=== PATIENT | female | born 1935 | race Caucasian/White ===

== ENCOUNTER 2020-03-30 11:46 | Inpatient (IN) ==
--- OUTSIDE RECORDS SUMMARY | 2020-03-30 11:48 | External Medical Summary | Continuity of Care Document ---
:1935 Author Name Kayli Velazco Address Unavailable Unavailable , Care Team Providers Name Role Phone Unavailable Unavailable Unavailable Kalli Katz M.D. 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 , M .D. Refills: 0 LORazepam 1 MG Oral Tablet; TAKE 1 TABLET 3 TIMES DAILY N EEDED. , M.D. Refills: 0 Losartan Potassium 25 MG Oral Tablet; TAKE 1 TABLET DAILY. , M.D. Refills: 0 ProAir HFA 108 (90 Base) MCG/ACT Inhalat ion Aerosol Solution; INHALE 2 PUFFS Every 4 hours PRN , M.D. Refills: 0 Sinemet 25-100 MG Oral Tablet; TAKE 1 TABLET twice daily , M.D. Refills: 0 CeleXA 20 MG Oral Tablet; TAKE 1 TABLET DAILY. , M.D. Refills: 0 Warfarin Sodium TABS; TAKE TABLET as directed , M.D. Refills: 0 Furosemide 20 MG Oral Tablet; TAKE 2 TABLETS DAILY. , M.D. Refills: 0 Gabapentin 300 MG TABS; TAKE 1 TABLET 3 TIMES DAILY. , M.D. Refills: 0 Oxybutynin Chloride 5 MG Oral Tablet; TAKE 1 TABLET twice d Mora farley Refills: 0 Aspirin 81 MG TABS; TAKE 1 TABLET DAILY. , M.D. Refills: 0 Combivent Respimat 20-100 MCG/ACT Inhala tion Aerosol Solution; INHALE 1 PUFFS 4 times daily Mora Katz Start: 05-Aug-2015 Quantity: 1 4 GM Inhaler Refills: 11 Procedures History of Cholecystectomy Status: Compl eted History of Total Knee Arthroplasty Statu s: Completed History of Laminectomy Decompressive Up To Two Lumbar Segmen ts Status: Completed Immunizations Immunizations not documented Family History Mother Family history of cardiovascular disease (V17.49) (Z82.49) S tatus: Active Father Family history of cardiovascular disease (V17.49) (Z82.49) S tatus: Active Social History - Smoking Status Ex-smoker Plan of Treatment Planned Observations Planned Goals not documented Results No Known Results Results not documented
--- OUTSIDE RECORDS SUMMARY | 2020-03-30 11:48 | External Medical Summary | Continuity of Care Document ---
:1935 Author Name Kayli Velazco Address Unavailable Unavailable , Care Team Providers Name Role Phone Unavailable Unavailable Unavailable Kalli Katz M.D. 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
--- NOTE | 2020-03-30 12:37 | Emergency Department Note ---
Impression & Plan Acute GI bleeding, Supratherapeutic INR, Abscess of breast, right ED Provider Note NAME: VIV FOLEY AGE: 84 SEX: F : 1935 ARRIVES VIA: Walk-In INFORMANT: Patient, ED PROVIDER(S): Juan Simpson MD Chief Complaint: Dark stools HPI: Patient states that she noticed dark stools yesterday. The patient states that she has had 5 dark tarry stools. Patient is complaining some mild discomfort but does not describe it is any pain within the abdomen. It is not localized. Patient denies any recent trauma. Patient states the dark stools have been constant. Nothing is made it better or worse. Patient denies any recent change in diet, stream or well water, nausea, vomiting, chest pain, shortness of breath. Patient does admit to may be slight change in taste or smell but this is been an ongoing chronic issue over many many months and not a recent issue. Patient does take Coumadin. Patient does have a prior history of a diverticular bleed back in the 70s. ROS: See HPI for pertinent positives and negatives. A total of 10 systems were reviewed and otherwise negative. Past medical history: See below Surgical history: See below Social history: See below Physical Exam: GENERAL: Well appearing, well nourished, NAD, non-toxic. Wearing glasses and mask EYE EXAM: Normal conjunctiva. PERRL, no anisocoria and EOM's grossly intact w/o pain. NECK: Supple, no nuchal rigidity, no adenopathy, non-tender. No signs of meningismus. LUNGS: Clear to auscultation. Normal chest wall mechanics. HEART: NSR, no MRG. ABDOMEN: Abdomen soft, non-tender, normo-active bowel sounds, no masses, no rebound or guarding. BACK: No CVA TTP. SKIN: No rashes and no bruising. Rectal: 1 nonthrombosed nonbleeding hemorrhoid, no masses noted, melenic appearing stool, heme positive. UPPER EXTREMITIES: Upper extremities are grossly normal. LOWER EXTREMITIES: Grossly normal, 1+ symmetric bilateral lower extremity edema without erythema. Negative Homans sign bilaterally. NEURO EXAM: A&O x3, cranial nerves II-XII grossly intact, normal speech, moves all 4 extremities on command w/o issue. Differential diagnoses: Diverticulosis, AVM, coagulopathy, colitis, inflammatory bowel disease, malignancy, Mervat-Kent tear, esophagitis, peptic ulcer disease, variceal bleed, gastritis, epistaxis, fissure, hemorrhoids, as well as other pathologies. Course: Patient was seen and evaluated the bedside. Full history physical exam was performed. EKG: None Imaging Studies: None Cardiac monitoring: An order was placed for continuous cardiac monitoring. The monitor shows a rate of 70 with sinus rhythm. Procedures: Incision & Drainage performed by Dr. Simpson Indication: Abscess Location: R inframammary fold Verbal consent was obtained after the risks and benefits were explained, including but not limited to bleeding, scarring, infection, pain, and bone/joint/nerve damage. At this time, the risks of the procedure are less than the risks of NOT performing the procedure. A time out was taken and the correct patient and site identified. The skin was prepped with betadine and a sterile field set. The wound was anesthetized with 3 ml of 1% lidocaine without epinephrine. The abscess cavity was entered with an 18G needle and 1 cc of purulent material expressed. Debridement was not performed. Detailed wound care instructions and signs and symptoms of worsening infection reviewed with the patient. No complications and the patient tolerated the procedure well. Wound culture was sent. MDM: Patient does present concern for possible GI bleed. Heme positive stool on exam. Blood work was obtained along with a type and screen. Patient's blood counts show normal white count H&H and platelet count. The patient's Coumadin level is elevated at 3.3. Patient does have an elevated BUN to creatinine ratio which may be consistent with an upper GI bleed. Occult stool was positive. I did speak with the on-call hospitalist. CELINA Berrios to be admitted under the supervision of Mulu Bhatti hospitalist. Past Med/Surg History Medical History COPD with asthma Diabetic neuropathy DM type 2 (diabetes mellitus, type 2) History of DVT (deep vein thrombosis) History of TIA (transient ischemic attack) History of uterine cancer Hyperlipidemia Hypertension half-way current use of anticoagulant Surgical History History of back surgery History of cataract surgery History of cholecystectomy History of hysterectomy History of total left knee replacement History of total right knee replacement History of tubal ligation Family History Mother Heart disease Social History Preferred Language: Hungarian Communication Ability: Effective 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 Beliefs That Will Affect Care: None Current Living Situation: Family current occupational status: retired Other Information That Helps Us Care for You: No Feels Safe at Home: Yes Safety Concerns: Feels Safe At This Time Smoking Status: Former smoker Smoking End Date: 1981 ; Hx Alcohol Use: No Hx Substance Use: No Allergies Allergies Allergy/AdvReac Type Severity Reaction Status Date / Time vancomycin Allergy Severe ANAPHYLAXIS Verified 03/30/20 13:04 adhesive Allergy Unknown RED AND Verified 03/30/20 13:04 ITCHY SKIN Penicillins AdvReac Unknown Verified 03/30/20 13:04 prednisone AdvReac Unknown INCREASED Verified 03/30/20 13:04 HER RECTAL BLEEDING Home Meds Home Medications Medication Instructions Recorded Confirmed aspirin 81 mg PO DAILY 03/30/20 03/30/20 atorvastatin 10 mg PO DAILY 03/30/20 03/30/20 furosemide See Rx Instructions .ROUTE .COMPLEX 03/30/20 03/30/20 gabapentin 300 mg PO TID 03/30/20 03/30/20 losartan 25 mg PO DAILY 03/30/20 03/30/20 metformin 500 mg PO BID 03/30/20 03/30/20 warfarin 5 mg PO MOTUWEFRSA 03/30/20 03/30/20 warfarin 7.5 mg PO SUTH 03/30/20 03/30/20 Results & Data (ED) Vital Signs Vital Signs - 24 hr 03/30/20 11:55 03/30/20 12:58 03/30/20 13:00 Temperature 36.6 C Temperature Source Oral Pulse Rate 70 60 62 Pulse Rate from SpO2 Sensor Respiratory Rate 20 21 17 Blood Pressure 177/72 H Blood Pressure Mean 107 Pulse Oximetry 98 Oxygen Delivery Method Room Air Sepsis Recent Fever Within 48 Hours No Sepsis Action Taken by Nursing No Action Required 03/30/20 13:10 03/30/20 13:13 03/30/20 13:14 Temperature Temperature Source Pulse Rate 58 L 57 L 57 L Pulse Rate from SpO2 Sensor 57 L Respiratory Rate 14 17 Blood Pressure 157/98 H Blood Pressure Mean 117 Pulse Oximetry 96 95 Oxygen Delivery Method Room Air Sepsis Recent Fever Within 48 Hours Sepsis Action Taken by Nursing 03/30/20 13:15 03/30/20 13:20 03/30/20 13:30 Temperature Temperature Source Pulse Rate 56 L 56 L Pulse Rate from SpO2 Sensor 56 L 54 L Respiratory Rate 15 15 Blood Pressure 159/68 H Blood Pressure Mean 102 Pulse Oximetry 95 98 96 Oxygen Delivery Method Room Air Sepsis Recent Fever Within 48 Hours Sepsis Action Taken by Nursing 03/30/20 13:44 Temperature Temperature Source Pulse Rate 80 Pulse Rate from SpO2 Sensor 79 Respiratory Rate 11 L Blood Pressure Blood Pressure Mean Pulse Oximetry 93 Oxygen Delivery Method Sepsis Recent Fever Within 48 Hours Sepsis Action Taken by Half-Way Medications Current Medication List: was personally reviewed by me Laboratory Data Attestation: I reviewed the patient's lab results. Result diagrams: 03/30/20 13:14 03/30/20 13:14 Lab Results 03/30/20 03/30/20 03/30/20 Range/Units 13:14 13:14 13:14 WBC 5.25 (4.8-10.8) K/uL RBC 4.15 L (4.2-5.4) M/uL Hgb 12.6 (12.0-16.0) g/dL Hct 38.2 (37-47) % MCV 92.0 (80-100) fL MCH 30.4 (25-34) pg MCHC 33.0 (32-36) g/dL RDW Std Deviation 48.8 H (36.4-46.3) fL RDW Coeff of Ata 14.5 (11.5-14.5) % Plt Count 163 (130-400) K/uL MPV 10.2 (7.4-10.4) fL Immature Gran % (Auto) 0.2 % Neut % (Auto) 68.7 % Lymph % (Auto) 18.3 % [place] % (Auto) 9.7 % Eos % (Auto) 2.5 % Baso % (Auto) 0.6 % Immature Gran # (Auto) 0.01 (0.00-0.02) K/uL Neut # (Auto) 3.61 (1.4-6.5) K/uL Lymph # (Auto) 0.96 L (1.2-3.4) K/uL [place] # (Auto) 0.51 (0.11-0.59) K/uL Eos # (Auto) 0.13 (0-0.5) K/uL Baso # (Auto) 0.03 (0-0.2) K/uL PT 32.4 H (9.0-12.0) Seconds INR 3.3 H (0.9-1.1) APTT 39.7 H (21.0-31.0) Seconds PTT Ratio 1.4 Sodium (136-145) mmol/L Potassium (3.5-5.1) mmol/L Chloride (98-107) mmol/L Carbon Dioxide (21-32) mmol/L Anion Gap (3-11) BUN (7-18) mg/dl Creatinine (0.6-1.2) mg/dl Est Cr Clr Drug Dosing Est GFR ( Amer) Est GFR (Non-Af Amer) BUN/Creatinine Ratio (10-20) Glucose (70-99) mg/dl Calcium (8.5-10.1) mg/dl Total Bilirubin (0.2-1) mg/dl AST (15-37) U/L ALT (12-78) U/L Alkaline Phosphatase (45-117) U/L Total Protein (6.4-8.2) gm/dl Albumin (3.4-5.0) gm/dl Globulin (2.5-4.0) gm/dl Albumin/Globulin Ratio (0.9-2) Blood Type A Positive Antibody Screen NEGATIVE 03/30/20 Range/Units 13:14 WBC (4.8-10.8) K/uL RBC (4.2-5.4) M/uL Hgb (12.0-16.0) g/dL Hct (37-47) % MCV (80-100) fL MCH (25-34) pg MCHC (32-36) g/dL RDW Std Deviation (36.4-46.3) fL RDW Coeff of Ata (11.5-14.5) % Plt Count (130-400) K/uL MPV (7.4-10.4) fL Immature Gran % (Auto) % Neut % (Auto) % Lymph % (Auto) % [place] % (Auto) % Eos % (Auto) % Baso % (Auto) % Immature Gran # (Auto) (0.00-0.02) K/uL Neut # (Auto) (1.4-6.5) K/uL Lymph # (Auto) (1.2-3.4) K/uL [place] # (Auto) (0.11-0.59) K/uL Eos # (Auto) (0-0.5) K/uL Baso # (Auto) (0-0.2) K/uL PT (9.0-12.0) Seconds INR (0.9-1.1) APTT (21.0-31.0) Seconds PTT Ratio Sodium 141 (136-145) mmol/L Potassium 3.9 (3.5-5.1) mmol/L Chloride 105 (98-107) mmol/L Carbon Dioxide 29 (21-32) mmol/L Anion Gap 7.0 (3-11) BUN 31 H (7-18) mg/dl Creatinine 0.91 (0.6-1.2) mg/dl Est Cr Clr Drug Dosing Not Reportable Est GFR ( Amer) 66.7 Est GFR (Non-Af Amer) 57.5 BUN/Creatinine Ratio 33.9 H (10-20) Glucose 112 H (70-99) mg/dl Calcium 9.1 (8.5-10.1) mg/dl Total Bilirubin 0.3 (0.2-1) mg/dl AST 19 (15-37) U/L ALT 26 (12-78) U/L Alkaline Phosphatase 63 (45-117) U/L Total Protein 7.2 (6.4-8.2) gm/dl Albumin 3.5 (3.4-5.0) gm/dl Globulin 3.7 (2.5-4.0) gm/dl Albumin/Globulin Ratio 0.9 (0.9-2) Blood Type Antibody Screen Administered Medications Discontinued Medications Pantoprazole Sodium 40 mg/ (Dextrose) 100 mls @ 20 mls/hr IV Q5H [facility] Stop: 03/30/20 17:44 Last Admin: 03/30/20 13:11 Dose: 8 mg/hr, 20 mls/hr Documented by: [id number] Lidocaine/Epinephrine (Xylocaine/Epinephrine 1%) 20 ml INFIL NOW ONE Stop: 03/30/20 14:48 Last Admin: 05/20/20 15:39 Dose: 20 ml Documented by: [id number] Discharge Plan Visit Data *Final* Discharge Date/Time: 03/30/20 15:36 Chief Complaint: Shortness of Breath/Dyspnea Stated Complaint: BLACK BOWEL MOVEMENT, COUGH, SOB, CHANGE IN TASTE ED Provider: Juan Simpson Discharge Problem: Acute GI bleeding, Supratherapeutic INR, Abscess of breast, right Patient Disposition: Admitted As Inpatient Discharge Instructions Interventions: ED Discharge Assessment Last Done: 03/30/20 15:36
[2020-03-30] MEDS ORDERED: PANTOprazole 40 MG in DEXTROSE 5% 100 ML IV SCH (12:45)
[2020-03-30 13:37] LABS: Basophils # (auto) 0.03 K/uL (0-0.2); Basophils % (auto) 0.6 %; Eosinophils # (auto) 0.13 K/uL (0-0.5); Eosinophils % (auto) 2.5 %; Hematocrit (blood only) 38.2 % (37-47); Hemoglobin 12.6 g/dL (12.0-16.0); Immature Granulocytes # (auto) 0.01 K/uL (0.00-0.02); Immature Granulocytes % (auto) 0.2 %; Lymphocytes # (auto) 0.96 K/uL (1.2-3.4); Lymphocytes % (auto) 18.3 %; Mean Corpuscular Hemoglobin 30.4 pg (25-34); Mean Platelet Volume 10.2 fL (7.4-10.4); Monocytes # (auto) 0.51 K/uL (0.11-0.59); Monocytes % (auto) 9.7 %; Neutrophils # (auto) 3.61 K/uL (1.4-6.5); Neutrophils % (auto) 68.7 %; Platelet Count 163 K/uL (130-400); RDW Coefficient of Variation 14.5 % (11.5-14.5); RDW Standard Deviation 48.8 fL (36.4-46.3); Red Blood Count 4.15 M/uL (4.2-5.4); White Blood Count 5.25 K/uL (4.8-10.8)
[2020-03-30 13:49] LABS: Alanine Aminotransferase 26 U/L (12-78); Albumin Level 3.5 gm/dl (3.4-5.0); Aspartate Aminotransferase 19 U/L (15-37); BUN Creatinine Ratio 33.9 (10-20); Blood Urea Nitrogen 31 mg/dl (7-18); Calcium 9.1 mg/dl (8.5-10.1); Carbon Dioxide 29 mmol/L (21-32); Chloride 105 mmol/L (98-107); Est GFR (African American) 66.7; Est GFR (Non-African American) 57.5; Glucose 112 mg/dl (70-99); Potassium 3.9 mmol/L (3.5-5.1); Sodium 141 mmol/L (136-145)
[2020-03-30 13:51] LABS: INR 3.3 (0.9-1.1); Partial Thromboplastin Ratio 1.4; Partial Thromboplastin Time 39.7 Seconds (21.0-31.0); Prothrombin Time 32.4 Seconds (9.0-12.0)
[2020-03-30 13:52] LABS: Albumin Globulin Ratio 0.9 (0.9-2); Alkaline Phosphatase 63 U/L (45-117); Bilirubin,Total 0.3 mg/dl (0.2-1); Globulin 3.7 gm/dl (2.5-4.0); Total Protein 7.2 gm/dl (6.4-8.2)
[2020-03-30] MEDS ORDERED: LIDOCAINE/EPINEPHRINE 1% 20 ML VIAL INFIL ONE (14:47)
--- NOTE | 2020-03-30 16:00 | History & Physical Report ---
Date of Service March 30, 2020 Assessment & Plan (1) Upper GI bleed: (2) Coagulopathy: -admit to med/surg with tele -patient presenting from home with reports of black stools for 2 days -on Coumadin for remote history of DVT, INR 3.3 -vitals stable, hgb 12.6 -started on Protonix drip in ED, will continue -Vitamin K 5mg x 1 -serial H&H, INR -clear liquids, NPO after midnight -CT abd/pelvis 2015 -sigmoid and descending colon diverticulosis; no prior colonoscopy or EGD reports on file -GI consult, case discussed with CELINA Bah (3) Abscess: -small superficial abscess noted under right breast -s/p I&D in ED, no packing needed -culture sent -no need for antibiotics at this time -Nystatin powder for breast folds (4) History of DVT (deep vein thrombosis): -holding Coumadin as above -also hx of IVC filter (5) History of TIA (transient ischemic attack): -hold ASA and statin for now (6) DM type 2 (diabetes mellitus, type 2): -hgb a1c 6.8 12/2019 -hold oral agents and utilize SSI while hospitalized (7) Hypertension: -BP a little elevated, likely situational -continue Losartan (8) DVT prophylaxis: -SCDs due to GI bleeding History of Present Illness Chief Complaint: Black Stools Primary Care Provider: Duong Looney MD 84-year-old female with PMH DM type II, DVT on Coumadin, HTN, and other problems listed below who presents the ED for evaluation of black stools. Patient reports her symptoms began 2 days ago. She reports she had a formed b owel movement yesterday however her stools were loose today. Describes stools as black in color. Denies any bright red bleeding. She has had some abdominal cramping but denies any other abdominal pain, nausea, vomiting. No chest pain or shortness of breath. Chronic lower extremity edema is at baseline. Denies lightheadedness, dizziness, diaphoresis, syncopal event. No other recent illnesses, fevers, chills. She denies any urinary symptoms. She reports a small abscess starting under her right breast that has been draining a small amount. Patient denies any heavy NSAID use. In the ED, rectal exam reveals heme positive stools. Patient is hemodynamically stable. Hgb 12.6, INR 3.3. Patient was started on a Protonix drip. Allergies Allergy/AdvReac Type Severity Reaction Status Date / Time vancomycin Allergy Severe ANAPHYLAXIS Verified 03/30/20 13:04 adhesive Allergy Unknown RED AND Verified 03/30/20 13:04 ITCHY SKIN Penicillins AdvReac Unknown Verified 03/30/20 13:04 prednisone AdvReac Unknown INCREASED Verified 03/30/20 13:04 HER RECTAL BLEEDING Home Medications Home Medications Medication Instructions Recorded Confirmed Type aspirin 81 mg PO DAILY 03/30/20 03/30/20 History atorvastatin 10 mg PO DAILY 03/30/20 03/30/20 History furosemide See Rx Instructions .ROUTE .COMPLEX 03/30/20 03/30/20 History gabapentin 300 mg PO TID 03/30/20 03/30/20 History losartan 25 mg PO DAILY 03/30/20 03/30/20 History metformin 500 mg PO BID 03/30/20 03/30/20 History warfarin 5 mg PO MOTUWEFRSA 03/30/20 03/30/20 History warfarin 7.5 mg PO SUTH 03/30/20 03/30/20 History Past Med/Surg History Medical History COPD with asthma Diabetic neuropathy DM type 2 (diabetes mellitus, type 2) History of DVT (deep vein thrombosis) History of TIA (transient ischemic attack) History of uterine cancer Hyperlipidemia Hypertension nursing home current use of anticoagulant Surgical History History of back surgery History of cataract surgery History of cholecystectomy History of hysterectomy History of total left knee replacement History of total right knee replacement History of tubal ligation Family History Mother Heart disease Social History Preferred Language: Czech Communication Ability: Effective 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 Beliefs That Will Affect Care: None Current Living Situation: Family current occupational status: retired Other Information That Helps Us Care for You: No Feels Safe at Home: Yes Safety Concerns: Feels Safe At This Time Smoking Status: Former smoker Smoking End Date: 1981 ; Hx Alcohol Use: No Hx Substance Use: No Review of Systems Review of Systems: ROS per HPI, all other systems reviewed and negative Physical Exam Constitutional: WD/WN, vitals as above Eyes: PERRL, conjunctivae normal, anicteric sclerae ENMT: external ear and nose normal, oropharynx normal Respiratory: normal respiratory effort, lungs clear to auscultation Cardiovascular: Rate/Rhythm: regular rate and regular rhythm Vessels: normal peripheral pulses Extremities: + edema (+1-2 pitting edema BLE) Gastrointestinal (Abdomen): normal bowel sounds, soft, nontender, no hepatosplenomegaly Musculoskeletal: no cyanosis or clubbing, extremities motor strength 5/5 Skin: no rashes, warm and dry Chronic venous changes BLE; small wound noted under patient's right breast with surrounding induration and erythema, no active drainage at this time Neurologic: PERRL, EOMI, accommodation nl, no face palsy, no dysarthria Psychiatric: A+Ox3, euthymic affect Results & Data Results & Data ([facility]) Vital Signs (Past 12 Hours) Vital Signs Temp Pulse Pulse Resp BP BP Pulse Ox 03/30/20 15:30 70 20 168/72 H 98 03/30/20 13:44 80 11 L 93 03/30/20 13:30 56 L 15 159/68 H 96 03/30/20 13:20 56 L 15 98 03/30/20 13:15 95 03/30/20 13:14 57 L 17 157/98 H 95 03/30/20 13:13 57 L 96 03/30/20 13:10 58 L 14 03/30/20 13:00 62 17 03/30/20 12:58 60 21 03/30/20 11:55 36.6 C 70 20 177/72 H 98 Laboratory Results Short CBC 03/30/20 Range/Units 13:14 WBC 5.25 (4.8-10.8) K/uL Hgb 12.6 (12.0-16.0) g/dL Hct 38.2 (37-47) % Plt Count 163 (130-400) K/uL BMP 03/30/20 13:14 Sodium 141 Potassium 3.9 Chloride 105 Carbon Dioxide 29 BUN 31 H Creatinine 0.91 Glucose 112 H Calcium 9.1 Liver Function 03/30/20 Range/Units 13:14 Total Bilirubin 0.3 (0.2-1) mg/dl AST 19 (15-37) U/L ALT 26 (12-78) U/L Alkaline Phosphatase 63 (45-117) U/L Albumin 3.5 (3.4-5.0) gm/dl Code Status & VTE Plan Code Status Patient is a full code as per my discussion with her. VTE Prophylaxis Plan VTE Prophylaxis will be ordered: Yes Supervising Physician Co-Signing Physician Notes Pt was seen and examined. Agreed with Roselyn PATRICK exam, assessment and plan. 84-year-old female with PMH DM type II, DVT on Coumadin, HTN, and other problems listed below who presents the ED for dark stools. Pt said that about 2 days she has been having dark stools. She said that last episodes of dark stools was this morning. She is on coumadin and aspirin with INR 3.3 today. She said that she laready took her coumadin today. Denies any nausea, vomiting and abdominal pain. Protonix drip starting in the ER, will continue. Vitamin K 5 mg givenx1. GI consult. Will start on clear liquid and NPO after midnight. Will monitor H&H and INR. Continue monitor closely. MD Charly
[2020-03-30] MEDS ORDERED: ACETAMINOPHEN 325 MG TAB PO PRN (16:46)
[2020-03-30] MEDS ORDERED: PHYTONADIONE 5 MG in SODIUM CHLORIDE 0.9% 50 ML IV ONE (17:00)
[2020-03-30] MEDS ORDERED: GLUCOSE 10 TABS/TUBE PO PRN (17:43)
[2020-03-30] MEDS ORDERED: CARBOHYDRATES FOR HYPOGLYCEMIA PO PRN (17:43)
[2020-03-30] MEDS ORDERED: GLUCAGON FOR INJ 1 MG VIAL SQ PRN (17:43)
[2020-03-30] MEDS ORDERED: DEXTROSE 50% 50 ML SYRINGE IV PRN (17:43)
[2020-03-30] MEDS ORDERED: GLUCOSE 40% GEL 15 GM TUBE PO PRN (17:43)
[2020-03-30] MEDS ORDERED: INSULIN ASPART 100 UNITS/ML 3 ML PEN SC SCH (21:00)
[2020-03-30 21:06] LABS: Hematocrit (blood only) 37.2 % (37-47); Hemoglobin 12.1 g/dL (12.0-16.0)
[2020-03-30] MEDS: GABAPENTIN 300 MG CAP PO SCH (21:20)
[2020-03-30] MEDS: NYSTATIN POWDER 15GM BTL EXT SCH (21:20)
[2020-03-30] MEDS ORDERED: LORazepam 0.5 MG TAB PO PRN (21:48)
[2020-03-31] MEDS ORDERED: Nursing to Pharmacy Communication ONE ×2 (03:21→15:13)
[2020-03-31] MEDS: INSULIN ASPART 100 UNITS/ML 3 ML PEN SC SCH ×4 (06:02→20:45)
[2020-03-31] MEDS: LOSARTAN POTASSIUM 25 MG TAB PO SCH (08:05)
[2020-03-31] MEDS: GABAPENTIN 300 MG CAP PO SCH ×3 (08:05→20:38)
[2020-03-31] MEDS: NYSTATIN POWDER 15GM BTL EXT SCH ×2 (08:05→20:38)
[2020-03-31 08:16] LABS: Hematocrit (blood only) 34.6 % (37-47); Hemoglobin 11.2 g/dL (12.0-16.0); Mean Corpuscular Hemoglobin 29.8 pg (25-34); Mean Corpuscular Hgb Conc 32.4 g/dL (32-36); Mean Platelet Volume 10.1 fL (7.4-10.4); Platelet Count 156 K/uL (130-400); RDW Coefficient of Variation 14.6 % (11.5-14.5); RDW Standard Deviation 49.2 fL (36.4-46.3); Red Blood Count 3.76 M/uL (4.2-5.4); White Blood Count 4.92 K/uL (4.8-10.8)
[2020-03-31 08:28] LABS: INR 1.6 (0.9-1.1); Prothrombin Time 16.1 Seconds (9.0-12.0)
--- NOTE | 2020-03-31 08:34 | Gastrointestinal Consultation ---
Date of Consultation March 31, 2020 Assessment & Plan (1) Acute GI bleedin84 year old female anticoagulated on coumadin presenting with 2/3 days of dark stools, heme + in the ED. VSS, slight drop in HGB overnight with BUN elevated at 31 NPO Please restart IV PPI bolus and drip No NSAIDs Hold coumadin INR < 2 EGD this AM Thank you for allowing us to participate in the care of this patient. Please call with any acute changes, questions or concerns. Please see addendum below with additional recommendation from my supervising physician. Present on Admission?: Yes (2) Supratherapeutic INR: Present on Admission?: Yes Supervising Physician Co-Signing Physician Notes I have seen and examined the patient and discussed the management with CELINA Bah. Patient alert and oriented. Admitted thru the ER for melena. On coumadin for history of dvt, inr 3.3 on admission- reversed and now 1.6. Slight downtrend in hgb, very mild bun elevation. EGD for evaluation of melena today. Consent obtained. History of Present Illness Reason for Consultation: black stools Requesting Physician: Jose Attending Physician: Dennis Garcia MD History of Present Illness 84 year old female with T2DM, DVT on Coumadin, HTN, who presents the ED for evaluation of black stools - GI asked to evaluate for dark stools. She notes symptoms started about 72 hours ago. Suggests At that time notes a change in her stools, dark, tarry stools. About 2-3 episodes daily. Last episode was earlier this AM. No abd pain. No GERD. No nausea, vomiting. No dysphagia. Describes stools as black in color. Denies any bright red bleeding. No chest pain or shortness of breath. Denies lightheadedness, dizziness. No syncope. In the ED, rectal exam reveals heme positive stools. Patient is hemodynamically stable. Hgb 12.6, INR 3.3. Patient was started on a Protonix drip this was to continued however appears to have been discontinued. Unclear to me why. Allergies Allergy/AdvReac Type Severity Reaction Status Date / Time vancomycin Allergy Severe ANAPHYLAXIS Verified 03/30/20 13:04 adhesive Allergy Unknown RED AND Verified 03/30/20 13:04 ITCHY SKIN Penicillins AdvReac Unknown Verified 03/30/20 13:04 prednisone AdvReac Unknown INCREASED Verified 03/30/20 13:04 HER RECTAL BLEEDING Home Medications Home Medications Medication Instructions Recorded Confirmed Type aspirin 81 mg PO DAILY 03/30/20 03/30/20 History atorvastatin 10 mg PO DAILY 03/30/20 03/30/20 History furosemide See Rx Instructions .ROUTE .COMPLEX 03/30/20 03/30/20 History gabapentin 300 mg PO TID 03/30/20 03/30/20 History losartan 25 mg PO DAILY 03/30/20 03/30/20 History metformin 500 mg PO BID 03/30/20 03/30/20 History warfarin 5 mg PO MOTUWEFRSA 03/30/20 03/30/20 History warfarin 7.5 mg PO SUTH 03/30/20 03/30/20 History Patient History Medical History COPD with asthma Diabetic neuropathy DM type 2 (diabetes mellitus, type 2) History of DVT (deep vein thrombosis) History of TIA (transient ischemic attack) History of uterine cancer Hyperlipidemia Hypertension retirement current use of anticoagulant Surgical History History of back surgery History of cataract surgery History of cholecystectomy History of hysterectomy History of total left knee replacement History of total right knee replacement History of tubal ligation Family History Mother Heart disease Social History Preferred Language: Frisian Communication Ability: Effective 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 Beliefs That Will Affect Care: None Current Living Situation: Family current occupational status: retired Other Information That Helps Us Care for You: No Feels Safe at Home: Yes Safety Concerns: Feels Safe At This Time Smoking Status: Former smoker Smoking End Date: 1981 ; Hx Alcohol Use: No Hx Substance Use: No Review of Systems Constitutional: no fever, no chills and no fatigue Respiratory: no cough and no dyspnea Cardiovascular: no chest pain and no dyspnea Gastrointestinal: + melena; no abdominal pain, no nausea, no coffee ground emesis, no hematemesis and no blood in stools Physical Exam Constitutional: well developed and well nourished; no acute distress Neck: trachea midline Respiratory: normal respiratory effort Gastrointestinal (Abdomen): normal bowel sounds, soft, nontender, no hepatosplenomegaly Skin: no rashes, warm and dry Results & Data ([facility]) Vital Signs (Past 12 Hours) Vital Signs Temp Pulse Pulse Resp BP Pulse Ox 03/31/20 07:46 36.6 C 64 18 154/76 H 92 03/31/20 07:11 59 L 03/31/20 04:00 36.9 C 68 18 146/69 H 93 03/30/20 23:24 37.5 C 69 18 143/67 H 91 03/30/20 23:00 81 Laboratory Results 03/31/20 03/31/20 03/31/20 Range/Units 07:42 07:42 07:42 WBC 4.92 (4.8-10.8) K/uL RBC 3.76 L (4.2-5.4) M/uL Hgb 11.2 L (12.0-16.0) g/dL Hct 34.6 L (37-47) % MCV 92.0 (80-100) fL MCH 29.8 (25-34) pg MCHC 32.4 (32-36) g/dL RDW Std Deviation 49.2 H (36.4-46.3) fL RDW Coeff of Ata 14.6 H (11.5-14.5) % Plt Count 156 (130-400) K/uL MPV 10.1 (7.4-10.4) fL Immature Gran % (Auto) % Neut % (Auto) % Lymph % (Auto) % Bond % (Auto) % Eos % (Auto) % Baso % (Auto) % Immature Gran # (Auto) (0.00-0.02) K/uL Neut # (Auto) (1.4-6.5) K/uL Lymph # (Auto) (1.2-3.4) K/uL Bond # (Auto) (0.11-0.59) K/uL Eos # (Auto) (0-0.5) K/uL Baso # (Auto) (0-0.2) K/uL PT 16.1 H (9.0-12.0) Seconds INR 1.6 H (0.9-1.1) APTT (21.0-31.0) Seconds PTT Ratio Sodium Pending (136-145) mmol/L Potassium Pending (3.5-5.1) mmol/L Chloride Pending (98-107) mmol/L Carbon Dioxide Pending (21-32) mmol/L Anion Gap Pending (3-11) BUN Pending (7-18) mg/dl Creatinine Pending (0.6-1.2) mg/dl Est Cr Clr Drug Dosing Pending Est GFR ( Amer) Pending Est GFR (Non-Af Amer) Pending BUN/Creatinine Ratio Pending (10-20) Glucose Pending (70-99) mg/dl POC Glucose (70-99) mg/dl Calcium Pending (8.5-10.1) mg/dl Total Bilirubin (0.2-1) mg/dl AST (15-37) U/L ALT (12-78) U/L Alkaline Phosphatase (45-117) U/L Total Protein (6.4-8.2) gm/dl Albumin (3.4-5.0) gm/dl Globulin (2.5-4.0) gm/dl Albumin/Globulin Ratio (0.9-2) POC Stool Occult Blood (Negative) Blood Type Antibody Screen 03/31/20 03/30/20 03/30/20 Range/Units 05:43 Unknown 20:51 WBC (4.8-10.8) K/uL RBC (4.2-5.4) M/uL Hgb 12.1 (12.0-16.0) g/dL Hct 37.2 (37-47) % MCV (80-100) fL MCH (25-34) pg MCHC (32-36) g/dL RDW Std Deviation (36.4-46.3) fL RDW Coeff of Ata (11.5-14.5) % Plt Count (130-400) K/uL MPV (7.4-10.4) fL Immature Gran % (Auto) % Neut % (Auto) % Lymph % (Auto) % Bond % (Auto) % Eos % (Auto) % Baso % (Auto) % Immature Gran # (Auto) (0.00-0.02) K/uL Neut # (Auto) (1.4-6.5) K/uL Lymph # (Auto) (1.2-3.4) K/uL Bond # (Auto) (0.11-0.59) K/uL Eos # (Auto) (0-0.5) K/uL Baso # (Auto) (0-0.2) K/uL PT (9.0-12.0) Seconds INR (0.9-1.1) APTT (21.0-31.0) Seconds PTT Ratio Sodium (136-145) mmol/L Potassium (3.5-5.1) mmol/L Chloride (98-107) mmol/L Carbon Dioxide (21-32) mmol/L Anion Gap (3-11) BUN (7-18) mg/dl Creatinine (0.6-1.2) mg/dl Est Cr Clr Drug Dosing Est GFR ( Amer) Est GFR (Non-Af Amer) BUN/Creatinine Ratio (10-20) Glucose (70-99) mg/dl POC Glucose 119 H (70-99) mg/dl Calcium (8.5-10.1) mg/dl Total Bilirubin (0.2-1) mg/dl AST (15-37) U/L ALT (12-78) U/L Alkaline Phosphatase (45-117) U/L Total Protein (6.4-8.2) gm/dl Albumin (3.4-5.0) gm/dl Globulin (2.5-4.0) gm/dl Albumin/Globulin Ratio (0.9-2) POC Stool Occult Blood Positive A (Negative) Blood Type Antibody Screen 03/30/20 03/30/20 03/30/20 Range/Units 20:45 13:14 13:14 WBC (4.8-10.8) K/uL RBC (4.2-5.4) M/uL Hgb (12.0-16.0) g/dL Hct (37-47) % MCV (80-100) fL MCH (25-34) pg MCHC (32-36) g/dL RDW Std Deviation (36.4-46.3) fL RDW Coeff of Ata (11.5-14.5) % Plt Count (130-400) K/uL MPV (7.4-10.4) fL Immature Gran % (Auto) % Neut % (Auto) % Lymph % (Auto) % Bond % (Auto) % Eos % (Auto) % Baso % (Auto) % Immature Gran # (Auto) (0.00-0.02) K/uL Neut # (Auto) (1.4-6.5) K/uL Lymph # (Auto) (1.2-3.4) K/uL Bond # (Auto) (0.11-0.59) K/uL Eos # (Auto) (0-0.5) K/uL Baso # (Auto) (0-0.2) K/uL PT 32.4 H (9.0-12.0) Seconds INR 3.3 H (0.9-1.1) APTT 39.7 H (21.0-31.0) Seconds PTT Ratio 1.4 Sodium 141 (136-145) mmol/L Potassium 3.9 (3.5-5.1) mmol/L Chloride 105 (98-107) mmol/L Carbon Dioxide 29 (21-32) mmol/L Anion Gap 7.0 (3-11) BUN 31 H (7-18) mg/dl Creatinine 0.91 (0.6-1.2) mg/dl Est Cr Clr Drug Dosing Not Reportable Est GFR ( Amer) 66.7 Est GFR (Non-Af Amer) 57.5 BUN/Creatinine Ratio 33.9 H (10-20) Glucose 112 H (70-99) mg/dl POC Glucose 136 H (70-99) mg/dl Calcium 9.1 (8.5-10.1) mg/dl Total Bilirubin 0.3 (0.2-1) mg/dl AST 19 (15-37) U/L ALT 26 (12-78) U/L Alkaline Phosphatase 63 (45-117) U/L Total Protein 7.2 (6.4-8.2) gm/dl Albumin 3.5 (3.4-5.0) gm/dl Globulin 3.7 (2.5-4.0) gm/dl Albumin/Globulin Ratio 0.9 (0.9-2) POC Stool Occult Blood (Negative) Blood Type Antibody Screen 03/30/20 03/30/20 Range/Units 13:14 13:14 WBC 5.25 (4.8-10.8) K/uL RBC 4.15 L (4.2-5.4) M/uL Hgb 12.6 (12.0-16.0) g/dL Hct 38.2 (37-47) % MCV 92.0 (80-100) fL MCH 30.4 (25-34) pg MCHC 33.0 (32-36) g/dL RDW Std Deviation 48.8 H (36.4-46.3) fL RDW Coeff of Ata 14.5 (11.5-14.5) % Plt Count 163 (130-400) K/uL MPV 10.2 (7.4-10.4) fL Immature Gran % (Auto) 0.2 % Neut % (Auto) 68.7 % Lymph % (Auto) 18.3 % Bond % (Auto) 9.7 % Eos % (Auto) 2.5 % Baso % (Auto) 0.6 % Immature Gran # (Auto) 0.01 (0.00-0.02) K/uL Neut # (Auto) 3.61 (1.4-6.5) K/uL Lymph # (Auto) 0.96 L (1.2-3.4) K/uL Bond # (Auto) 0.51 (0.11-0.59) K/uL Eos # (Auto) 0.13 (0-0.5) K/uL Baso # (Auto) 0.03 (0-0.2) K/uL PT (9.0-12.0) Seconds INR (0.9-1.1) APTT (21.0-31.0) Seconds PTT Ratio Sodium (136-145) mmol/L Potassium (3.5-5.1) mmol/L Chloride (98-107) mmol/L Carbon Dioxide (21-32) mmol/L Anion Gap (3-11) BUN (7-18) mg/dl Creatinine (0.6-1.2) mg/dl Est Cr Clr Drug Dosing Est GFR ( Amer) Est GFR (Non-Af Amer) BUN/Creatinine Ratio (10-20) Glucose (70-99) mg/dl POC Glucose (70-99) mg/dl Calcium (8.5-10.1) mg/dl Total Bilirubin (0.2-1) mg/dl AST (15-37) U/L ALT (12-78) U/L Alkaline Phosphatase (45-117) U/L Total Protein (6.4-8.2) gm/dl Albumin (3.4-5.0) gm/dl Globulin (2.5-4.0) gm/dl Albumin/Globulin Ratio (0.9-2) POC Stool Occult Blood (Negative) Blood Type A Positive Antibody Screen NEGATIVE
[2020-03-31 08:41] LABS: BUN Creatinine Ratio 35.2 (10-20); Calcium 8.8 mg/dl (8.5-10.1); Creatinine Clr Calc Pharmacy 59.1 ml/min; Est GFR (African American) 72.4; Est GFR (Non-African American) 62.5; Potassium 3.8 mmol/L (3.5-5.1)
[2020-03-31] MEDS ORDERED: PROPOFOL IV EMULSION 10 MG/ML 20 ML VIAL IV ONE (08:49)
[2020-03-31] MEDS ORDERED: LIDOCAINE HCL 2% 2 ML VIAL/AMP(20MG/ML) INFIL ONE (08:49)
[2020-03-31] MEDS: PANTOprazole 40 MG in DEXTROSE 5% 100 ML IV SCH ×3 (08:52→18:57)
--- NOTE | 2020-03-31 09:38 | Anesthesiology Consultation ---
Date of Service March 31, 2020 [facility] Assessment & Plan (1) Encounter for pre-operative examination: Chart Review Chart Review: Acceptable Risk for Surgery and Patient NOT seen in Pre Admission Testing Consults Requested none History Surgery Operation Date: 03/31/20 08:30 Proposed Procedures p Esophagogastroduodenoscopy Dr. Jovon Sigala M.D. Height/Weight Height: 5 ft 6 in Weight: 104.6 kg Allergies Allergy/AdvReac Type Severity Reaction Status Date / Time vancomycin Allergy Severe ANAPHYLAXIS Verified 03/30/20 13:04 adhesive Allergy Unknown RED AND Verified 03/30/20 13:04 ITCHY SKIN Penicillins AdvReac Unknown Verified 03/30/20 13:04 prednisone AdvReac Unknown INCREASED Verified 03/30/20 13:04 HER RECTAL BLEEDING Medications Home Medications Medication Instructions Recorded Confirmed Last Taken aspirin 81 mg PO DAILY 03/30/20 03/30/20 Unknown atorvastatin 10 mg PO DAILY 03/30/20 03/30/20 Unknown furosemide See Rx Instructions .ROUTE .COMPLEX 03/30/20 03/30/20 Unknown gabapentin 300 mg PO TID 03/30/20 03/30/20 Unknown losartan 25 mg PO DAILY 03/30/20 03/30/20 Unknown metformin 500 mg PO BID 03/30/20 03/30/20 Unknown warfarin 5 mg PO MOTUWEFRSA 03/30/20 03/30/20 Unknown warfarin 7.5 mg PO SUTH 03/30/20 03/30/20 Unknown Active Medications Generic Name Dose Route Start Last Admin Trade Name Freq PRN Reason Stop Dose Admin Gabapentin 300 mg 03/30/20 21:00 03/31/20 08:05 Neurontin PO 04/29/20 20:59 300 mg TID MARIANELA Administration Pantoprazole Sodium 40 mg/ 100 mls @ 20 mls/hr 03/31/20 08:45 03/31/20 09:01 Dextrose IV 04/30/20 08:44 0 mg/hr Q5H MARIANELA 0 mls/hr Infusion 8 MG/HR Insulin Aspart 0 units 03/31/20 06:00 03/31/20 06:02 Novolog Flexpen SC 04/30/20 05:59 Not Given Q6 MARIANELA Lorazepam 0.5 mg 03/30/20 21:48 03/30/20 22:32 Ativan PO 04/29/20 21:47 0.5 mg DAILY PRN Administration Anxiety Losartan Potassium 25 mg 03/31/20 09:00 03/31/20 08:05 Cozaar PO 04/30/20 08:59 25 mg DAILY MARIANELA Administration Nystatin 1 appln 03/30/20 21:00 03/31/20 08:05 Mycostatin EXT 04/29/20 20:59 1 appln BID MARIANELA Administration NPO Date Last Intake of Fluids: 03/31/20 Time Last Intake of Fluids: 00:00 Date Last Intake of Solids: 03/31/20 Time Last Intake of Solids: 18:00 Past Medical History Medical History COPD with asthma Diabetic neuropathy DM type 2 (diabetes mellitus, type 2) History of DVT (deep vein thrombosis) History of TIA (transient ischemic attack) History of uterine cancer Hyperlipidemia 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 Past Family History Family History Mother Heart disease Past Surgical History Surgical History History of back surgery History of cataract surgery History of cholecystectomy History of hysterectomy History of total left knee replacement History of total right knee replacement History of tubal ligation Social History Smoking Status: Former smoker Smoking End Date: 1981 Hx Alcohol Use: No Hx Substance Use: No Physical Exam Vital Signs Last Vital Signs Temp 36.6 C 03/31/20 09:34 Pulse 65 03/31/20 09:34 Resp 18 03/31/20 09:34 BP 153/58 H 03/31/20 09:34 Pulse Ox 95 03/31/20 09:34 Testing Laboratory Results 03/31/20 07:42 03/31/20 07:42 PT 16.1 Seconds (9.0-12.0) H 03/31/20 07:42 INR 1.6 (0.9-1.1) H 03/31/20 07:42 APTT 39.7 Seconds (21.0-31.0) H 03/30/20 13:14 Blood Type A Positive 03/30/20 13:14 Antibody Screen NEGATIVE 03/30/20 13:14 03/30/20 16:00 Gram Stain - Final Chest 03/31/20 05:43 POC Glucose 119 H Electrocardiogram Date: 03/30/20 Findings: + SB @ (59) cannot rule out anterior infarct similar to prior EKG
--- NOTE | 2020-03-31 10:15 | GI REPORT ---
Patient Name: Keila Vital Procedure Date: 03/31/2020 9:39 AM Date of : 1935 Admit Type: Inpatient Age: 84 Gender: Female Attending MD: Chely Sigala M.d. Procedure: Upper GI endoscopy Providers: Chely Sigala M.d. Referring MD: Dennis Garcia Md Indications: Melena Medicines: Propofol per Anesthesia, Lidocaine Complications: No immediate complications. Estimated Blood Loss: Estimated blood loss: none. Procedure: Pre-Anesthesia Assessment: - Patient identification and proposed procedure were verified prior to the procedure by the physician, the nurse and the anesthesiologist. The procedure was verified in the pre-procedure area. - Prior to the procedure, a History and Physical was performed, and patient medications, allergies and sensitivities were reviewed. The patient's tolerance of previous anesthesia was reviewed. - The risks and benefits of the procedure and the sedation options and risks were discussed with the patient. All questions were answered and informed consent was obtained. After obtaining informed consent, the endoscope was passed under direct vision. Throughout the procedure, the patient's blood pressure, pulse, and oxygen saturations were monitored continuously. The Endoscope was introduced through the mouth and advanced to the second part of duodenum. The upper GI endoscopy was accomplished without difficulty. The patient tolerated the procedure well though did cough during the procedure on and off. Findings: The examined esophagus appeared normal without esophagitis or ulceration. The examined stomach appeared normal with mild gastritis in the antrum. Biopsies were taken with a cold forceps for Helicobacter pylori testing. The pathology specimen was placed into Bottle A. Verification of patient identification for the specimen was done by the physician and nurse using the patient's name and medical record number. One non-bleeding superficial duodenal ulcer with pigmented material was found in the duodenal bulb. No overt visible vessel or adherent clot was seen. Attempt at clipping was done but due to torque, the clip would not deploy. Soft coagulation for bleeding with a probe was applied and was successful at coagulating the area. The duodenal bulb and second portion of the duodenum were otherwise normal. Impression: - Normal esophagus. - Normal stomach. Biopsied. - One non-bleeding duodenal ulcer with pigmented material. Treated with heat therapy (soft coagulation). - Normal duodenal bulb and second portion of the duodenum. Recommendation: - Await pathology results. - Clear liquid diet, advance as tolerate. - Avoid NSAID's. Chely Sigala M.D. Chely Sigala M.d. 03/31/2020 10:15:13 AM This report has been signed electronically. Note Initiated On: 03/31/2020 9:39 AM Number of Addenda: 0 I attest to the content of the Intraoperative Record and orders documented therein, exceptions below {[id number]}
--- NOTE | 2020-03-31 10:17 | Anesthesiology Progress Note ---
Date of Service March 31, 2020 Anesthesia Post Procedure Vital Signs Vital Signs: Temp Pulse Pulse Pulse Resp BP BP 03/31/20 10:07 72 12 03/31/20 09:34 36.6 C 65 18 03/31/20 07:46 36.6 C 64 18 03/31/20 07:11 59 L 03/31/20 04:00 36.9 C 68 18 03/30/20 23:24 37.5 C 69 18 03/30/20 23:00 81 03/30/20 19:44 36.3 C L 63 16 03/30/20 17:05 36.4 C L 65 18 03/30/20 15:30 70 20 168/72 H 03/30/20 13:44 80 11 L 03/30/20 13:30 56 L 15 159/68 H 03/30/20 13:20 56 L 15 03/30/20 13:15 03/30/20 13:14 57 L 17 157/98 H 03/30/20 13:13 57 L 03/30/20 13:10 58 L 14 03/30/20 13:00 62 17 03/30/20 12:58 60 21 03/30/20 11:55 36.6 C 70 20 177/72 H BP Pulse Ox 03/31/20 10:07 121/77 99 03/31/20 09:34 153/58 H 95 03/31/20 07:46 154/76 H 92 03/31/20 07:11 03/31/20 04:00 146/69 H 93 03/30/20 23:24 143/67 H 91 03/30/20 23:00 03/30/20 19:44 149/72 H 93 03/30/20 17:05 181/72 H 95 03/30/20 15:30 98 03/30/20 13:44 93 03/30/20 13:30 96 03/30/20 13:20 98 03/30/20 13:15 95 03/30/20 13:14 95 03/30/20 13:13 96 03/30/20 13:10 03/30/20 13:00 03/30/20 12:58 03/30/20 11:55 98 Transfer of Care Handoff Completed per policy Notes Mental Status: alert / awake / arousable Patient Amnestic to Procedure: Yes Nausea / Vomiting: adequately controlled Pain: adequately controlled Airway Patency, RR, SpO2: stable & adequate BP & HR: stable & adequate Hydration State: stable & adequate Anesthetic Complications: no major complications apparent and Pt Satisfied with anesthetic care
--- NOTE | 2020-03-31 16:11 | Hospitalist Progress Note ---
Date of Service March 31, 2020 Assessment & Plan (1) Upper GI bleed: (2) Coagulopathy: Acute upper gastrointestinal bleeding In setting of coagulopathy due to Coumadin --EGD:Normal esophagus. Normal stomach. Biopsied. One non-bleeding duodenal ulcer with pigmented material. Treated with heat therapy (soft coagulation). Normal duodenal bulb and second portion of the duodenum. --INR reversed:1.6 S/P VIt K Continue IV Protonix Appreciate GI input Clear liquid diet, advance as tolerated Monitor CBC Avoid NSAIDs Aspirin, Coumadin held for now (3) Abscess: small superficial abscess noted under right breast s/p I&D in ED, no packing needed wound Culture: pending Consider antibiotics if needed (4) History of DVT (deep vein thrombosis): holding Coumadin as above H/O IVC filter (5) History of TIA (transient ischemic attack): hold ASA Resume statin (6) DM type 2 (diabetes mellitus, type 2): Hb A1c 6.8 12/2019 hold oral agents and utilize SSI while hospitalized (7) Hypertension: continue Losartan (8) DVT prophylaxis: SCDs Re:GI bleeding Admission and Anticipated Discharge Date Admission Date: March 30, 2020 Subjective Patient is seen and examined at bedside Had melena this morning Got EGD which showed 1 nonbleeding duodenal ulcer Patient denies any chest pain, shortness of breath, abdominal pain States feeling tired Offers no other complaints Review of Systems Review of Systems: All systems reviewed & are unremarkable except as noted in HPI & below Physical Exam Physical Exam: Physical Exam: Vitals signs as noted above General Appearance:Obese, no apparent distress Head: normocephalic, Atraumatic Eyes: normal inspection, EOMI Neck: supple, Trachea midline Respiratory/Chest: Normal breath sounds, CTA, No accessory muscle use Cardiovascular: S1, S2, No murmur Abdomen/GI:Soft, Non tender, Bowel sounds present Extremities/Musculoskelatal:normal inspection, Trace edema Neurologic/Psych:AAOX3, grossly no focal neurological deficits Skin: normal color, warm Results & Data Results & Data ([facility]) Vital Signs (Past 12 Hours) Vital Signs Temp Pulse Pulse Pulse Resp BP BP 03/31/20 15:49 36.7 C 51 L 17 109/62 03/31/20 13:00 36.6 C 60 18 116/65 03/31/20 12:00 36.5 C 69 18 124/69 05/21/20 11:50 85 120/78 03/31/20 11:30 36.7 C 63 16 124/69 03/31/20 11:00 84 120/78 03/31/20 10:45 85 135/66 03/31/20 10:37 60 16 125/46 L 03/31/20 10:22 60 16 117/48 L 03/31/20 10:07 72 12 121/77 03/31/20 09:34 36.6 C 65 18 153/58 H 03/31/20 07:46 36.6 C 64 18 154/76 H 03/31/20 07:11 59 L Pulse Ox 03/31/20 15:49 91 03/31/20 13:00 95 03/31/20 12:00 93 03/31/20 11:50 96 03/31/20 11:30 94 03/31/20 11:00 96 03/31/20 10:45 96 03/31/20 10:37 96 03/31/20 10:22 96 03/31/20 10:07 99 03/31/20 09:34 95 03/31/20 07:46 92 03/31/20 07:11 Laboratory Results Short CBC 03/30/20 03/31/20 Range/Units 20:51 07:42 WBC 4.92 (4.8-10.8) K/uL Hgb 12.1 11.2 L (12.0-16.0) g/dL Hct 37.2 34.6 L (37-47) % Plt Count 156 (130-400) K/uL BMP 03/31/20 07:42 Sodium 140 Potassium 3.8 Chloride 106 Carbon Dioxide 27 BUN 30 H Creatinine 0.85 Glucose 119 H Calcium 8.8
--- NOTE | 2020-03-31 16:34 | Electrocardiogram Report ---
Test Reason : Blood Pressure : / mmHG Vent. Rate : 059 BPM Atrial Rate : 059 BPM P-R Int : 174 ms QRS Dur : 074 ms QT Int : 416 ms P-R-T Axes : 090 003 062 degrees QTc Int : 411 ms Sinus bradycardia Abnormal ECG When compared with ECG of 31-OCT-2012 19:25, No significant change was found Confirmed by Wolf Evangelista ([id number]) on 03/31/2020 4:34:08 PM Referred By: REFERRED SELF Confirmed By:Giovani Evangelista
[2020-04-01] MEDS: PANTOprazole 40 MG in DEXTROSE 5% 100 ML IV SCH ×4 (00:11→14:47)
[2020-04-01 07:57] LABS: Hematocrit (blood only) 33.7 % (37-47); Hemoglobin 10.8 g/dL (12.0-16.0); Mean Corpuscular Hemoglobin 29.9 pg (25-34); Mean Corpuscular Volume 93.4 fL (80-100); Mean Platelet Volume 9.9 fL (7.4-10.4); Platelet Count 154 K/uL (130-400); RDW Coefficient of Variation 14.7 % (11.5-14.5); RDW Standard Deviation 49.9 fL (36.4-46.3); Red Blood Count 3.61 M/uL (4.2-5.4); White Blood Count 4.42 K/uL (4.8-10.8)
[2020-04-01 08:05] LABS: INR 1.2 (0.9-1.1); Prothrombin Time 12.7 Seconds (9.0-12.0)
[2020-04-01 08:29] LABS: BUN Creatinine Ratio 23.5 (10-20); Calcium 8.4 mg/dl (8.5-10.1); Creatinine Clr Calc Pharmacy 54.8 ml/min; Est GFR (African American) 65.8; Est GFR (Non-African American) 56.8; Potassium 3.8 mmol/L (3.5-5.1)
[2020-04-01] MEDS: NYSTATIN POWDER 15GM BTL EXT SCH (08:30)
[2020-04-01] MEDS: GABAPENTIN 300 MG CAP PO SCH ×2 (08:30→12:46)
[2020-04-01] MEDS: LOSARTAN POTASSIUM 25 MG TAB PO SCH (08:30)
[2020-04-01] MEDS: INSULIN ASPART 100 UNITS/ML 3 ML PEN SC SCH ×2 (08:30→12:46)
[2020-04-01] MEDS ORDERED: ATORVASTATIN 10 MG TAB PO SCH (09:00)
--- NOTE | 2020-04-01 09:00 | Gastroenterology Progress Note ---
Date of Service April 01, 2020 Assessment & Plan (1) Acute GI bleedin84 year old female anticoagulated on coumadin presenting with 2/3 days of dark stools, heme + in the ED. VSS, slight drop in HGB overnight with BUN elevated at 31 S/P EGD w/ nonbleeding duodenal ulcer, treated. Clinically improving, stable HGB tolerating clear liquid diet Clear liquid Can advance diet as tolerated Await pathology results Avoid NSAID's PO PPI 40 mg BID x 1 month Then PO PPI 40 mg daily OP EGD scheduled already for ulcer recall GI sign off. No GI contraindication to discharge. Thank you for allowing us to participate in the care of this patient. Please call with any acute changes, questions or concerns. Please see addendum below with additional recommendation from my supervising physician. (2) Supratherapeutic INR: Admission and Anticipated Discharge Date Admission Date: March 31, 2020 Supervising Physician Co-Signing Physician Notes I saw and evaluated the patient. She underwent upper endoscopy with Dr. Sigala yesterday and was found to have a duodenal ulcer which explains her presenting symptoms. We would recommend avoidance of nonsteroidals if possible in addition to continued use of Protonix. The patient will be scheduled for follow-up upper endoscopy with in 3 months. I would recommend that the patient be on an iron supplement for about 6 weeks after discharge and follow-up with our office with any additional questions or concerns. Please call should any additional questions occur during the remainder of the hospital admission Subjective Pt was seen and evaluated. Chart reviewed. S/P EGD. Clinically feeling well. Tolerating clear liquid diet. Is hungry, asking about advancing diet. Is tired, fatigue but wants to go home. EGD: Normal esophagus. Normal stomach. Biopsied.One non-bleeding duodenal ulcer with pigmented material. Treated with heat therapy (soft coagulation). Normal duodenal bulb and second portion of the duodenum. Review of Systems Constitutional: + fatigue; no fever and no chills Respiratory: no cough and no dyspnea Cardiovascular: no chest pain and no dyspnea Gastrointestinal: no abdominal pain, no heartburn, no blood in stools and no melena Physical Exam Constitutional: well developed and well nourished; no acute distress Neck: trachea midline Respiratory: normal respiratory effort Gastrointestinal (Abdomen): normal bowel sounds, soft, nontender, no hepatosplenomegaly Skin: no rashes, warm and dry Results & Data ([facility]) Vital Signs (Past 12 Hours) Vital Signs Temp Pulse Pulse Resp BP Pulse Ox 04/01/20 07:59 37.0 C 71 18 118/57 L 90 04/01/20 03:34 36.9 C 71 18 148/62 H 91 04/01/20 02:54 73 03/31/20 23:39 36.8 C 62 18 151/63 H 92 Laboratory Results 04/01/20 04/01/20 04/01/20 Range/Units 07:45 07:39 07:39 WBC (4.8-10.8) K/uL RBC (4.2-5.4) M/uL Hgb (12.0-16.0) g/dL Hct (37-47) % MCV (80-100) fL MCH (25-34) pg MCHC (32-36) g/dL RDW Std Deviation (36.4-46.3) fL RDW Coeff of Ata (11.5-14.5) % Plt Count (130-400) K/uL MPV (7.4-10.4) fL PT 12.7 H (9.0-12.0) Seconds INR 1.2 H (0.9-1.1) Sodium 141 (136-145) mmol/L Potassium 3.8 (3.5-5.1) mmol/L Chloride 107 (98-107) mmol/L Carbon Dioxide 28 (21-32) mmol/L Anion Gap 6.0 (3-11) BUN 22 H (7-18) mg/dl Creatinine 0.92 (0.6-1.2) mg/dl Est Cr Clr Drug Dosing 54.8 ml/min Est GFR ( Amer) 65.8 Est GFR (Non-Af Amer) 56.8 BUN/Creatinine Ratio 23.5 H (10-20) Glucose 123 H (70-99) mg/dl POC Glucose 131 H (70-99) mg/dl Calcium 8.4 L (8.5-10.1) mg/dl 04/01/20 03/31/20 03/31/20 Range/Units 07:39 20:11 16:51 WBC 4.42 L (4.8-10.8) K/uL RBC 3.61 L (4.2-5.4) M/uL Hgb 10.8 L (12.0-16.0) g/dL Hct 33.7 L (37-47) % MCV 93.4 (80-100) fL MCH 29.9 (25-34) pg MCHC 32.0 (32-36) g/dL RDW Std Deviation 49.9 H (36.4-46.3) fL RDW Coeff of Ata 14.7 H (11.5-14.5) % Plt Count 154 (130-400) K/uL MPV 9.9 (7.4-10.4) fL PT (9.0-12.0) Seconds INR (0.9-1.1) Sodium (136-145) mmol/L Potassium (3.5-5.1) mmol/L Chloride (98-107) mmol/L Carbon Dioxide (21-32) mmol/L Anion Gap (3-11) BUN (7-18) mg/dl Creatinine (0.6-1.2) mg/dl Est Cr Clr Drug Dosing ml/min Est GFR ( Amer) Est GFR (Non-Af Amer) BUN/Creatinine Ratio (10-20) Glucose (70-99) mg/dl POC Glucose 121 H 123 H (70-99) mg/dl Calcium (8.5-10.1) mg/dl / Range/Units 11:58 WBC (4.8-10.8) K/uL RBC (4.2-5.4) M/uL Hgb (12.0-16.0) g/dL Hct (37-47) % MCV (80-100) fL MCH (25-34) pg MCHC (32-36) g/dL RDW Std Deviation (36.4-46.3) fL RDW Coeff of Ata (11.5-14.5) % Plt Count (130-400) K/uL MPV (7.4-10.4) fL PT (9.0-12.0) Seconds INR (0.9-1.1) Sodium (136-145) mmol/L Potassium (3.5-5.1) mmol/L Chloride (98-107) mmol/L Carbon Dioxide (21-32) mmol/L Anion Gap (3-11) BUN (7-18) mg/dl Creatinine (0.6-1.2) mg/dl Est Cr Clr Drug Dosing ml/min Est GFR ( Amer) Est GFR (Non-Af Amer) BUN/Creatinine Ratio (10-20) Glucose (70-99) mg/dl POC Glucose 122 H (70-99) mg/dl Calcium (8.5-10.1) mg/dl
--- NOTE | 2020-04-01 16:20 | Hospitalist Progress Note ---
Date of Service April 01, 2020 Assessment & Plan (1) Upper GI bleed: (2) Coagulopathy: Acute upper gastrointestinal bleeding In setting of coagulopathy due to Coumadin --EGD:Normal esophagus. Normal stomach. Biopsied. One non-bleeding duodenal ulcer with pigmented material. Treated with heat therapy (soft coagulation). Normal duodenal bulb and second portion of the duodenum. --INR reversed:1.6 S/P VIt K IV Protonix will be transitioned to p.o. Protonix twice daily for 1 month and then once daily Appreciate GI input Clear liquid diet, advance as tolerated Monitor CBC Avoid NSAIDs Aspirin, Coumadin ok to resume tomorrow as per GI Pathology pending Needs follow-up with GI for repeat EGD as outpatient (3) Abscess: small superficial abscess noted under right breast s/p I&D in ED, no packing needed wound Culture: Coagulase negative staph No plan to start antibiotics currently (4) History of DVT (deep vein thrombosis): holding Coumadin as above H/O IVC filter (5) History of TIA (transient ischemic attack): Resume ASA Continue statin (6) DM type 2 (diabetes mellitus, type 2): Hb A1c 6.8 12/2019 hold oral agents and utilize SSI while hospitalized (7) Hypertension: continue Losartan (8) DVT prophylaxis: SCDs Re:GI bleeding Admission and Anticipated Discharge Date Admission Date: March 31, 2020 Subjective Patient is seen and examined at bedside Minimal dark colored stool this morning No significant bleeding issues Tolerated diet well Patient denies any chest pain, shortness of breath, abdominal pain Offers no other complaints Review of Systems Review of Systems: All systems reviewed & are unremarkable except as noted in HPI & below Physical Exam Physical Exam: Physical Exam: Vitals signs as noted above General Appearance:Obese, no apparent distress Head: normocephalic, Atraumatic Eyes: normal inspection, EOMI Neck: supple, Trachea midline Respiratory/Chest: Normal breath sounds, CTA, No accessory muscle use Cardiovascular: S1, S2, No murmur Abdomen/GI:Soft, Non tender, Bowel sounds present Extremities/Musculoskelatal:normal inspection, Trace edema Neurologic/Psych:AAOX3, grossly no focal neurological deficits Skin: normal color, warm Results & Data Results & Data ([facility]) Vital Signs (Past 12 Hours) Vital Signs Temp Pulse Pulse Resp BP Pulse Ox 05/22/20 15:06 36.5 C 62 19 145/83 H 95 04/01/20 11:28 36.8 C 85 18 138/67 96 04/01/20 10:00 67 04/01/20 07:59 37.0 C 71 18 118/57 L 90 Laboratory Results Short CBC 04/01/20 Range/Units 07:39 WBC 4.42 L (4.8-10.8) K/uL Hgb 10.8 L (12.0-16.0) g/dL Hct 33.7 L (37-47) % Plt Count 154 (130-400) K/uL BMP 04/01/20 07:39 Sodium 141 Potassium 3.8 Chloride 107 Carbon Dioxide 28 BUN 22 H Creatinine 0.92 Glucose 123 H Calcium 8.4 L
--- NOTE | 2020-04-01 16:41 | Discharge Summary ---
Date of Service April 01, 2020 Admission HPI Per Admitting Provider 84-year-old female with PMH DM type II, DVT on Coumadin, HTN, and other problems listed below who presents the ED for evaluation of black stools. Patient reports her symptoms began 2 days ago. She reports she had a formed bowel movement yesterday however her stools were loose today. Describes stools as black in color. Denies any bright red bleeding. She has had some abdominal cramping but denies any other abdominal pain, nausea, vomiting. No chest pain or shortness of breath. Chronic lower extremity edema is at baseline. Denies lightheadedness, dizziness, diaphoresis, syncopal event. No other recent illne sses, fevers, chills. She denies any urinary symptoms. She reports a small abscess starting under her right breast that has been draining a small amount. Patient denies any heavy NSAID use. In the ED, rectal exam reveals heme positive stools. Patient is hemodynamically stable. Hgb 12.6, INR 3.3. Patient was started on a Protonix drip. Admission Exam Per Admitting Provider Physical Exam Constitutional: WD/WN, vitals as above Eyes: PERRL, conjunctivae normal, anicteric sclerae ENMT: external ear and nose normal, oropharynx normal Respiratory: normal respiratory effort, lungs clear to auscultation Cardiovascular: Rate/Rhythm: regular rate and regular rhythm Vessels: normal peripheral pulses Extremities: + edema (+1-2 pitting edema BLE) Gastrointestinal (Abdomen): normal bowel sounds, soft, nontender, no hepatosplenomegaly Musculoskeletal: no cyanosis or clubbing, extremities motor strength 5/5 Skin: no rashes, warm and dry Chronic venous changes BLE; small wound noted under patient's right breast with surrounding induration and erythema, no active drainage at this time Neurologic: PERRL, EOMI, accommodation nl, no face palsy, no dysarthria Psychiatric: A+Ox3, euthymic affect Principal Diagnosis Acute upper gastrointestinal bleeding Discharge Data Allergies Allergy/AdvReac Type Severity Reaction Status Date / Time vancomycin Allergy Severe ANAPHYLAXIS Verified 03/30/20 13:04 adhesive Allergy Unknown RED AND Verified 03/30/20 13:04 ITCHY SKIN Penicillins AdvReac Unknown Verified 03/30/20 13:04 prednisone AdvReac Unknown INCREASED Verified 03/30/20 13:04 HER RECTAL BLEEDING Consultations 03/30/20 14:43 ED Decision to Admit Stat 03/30/20 16:46 Consult Case Management - Discharge Planning Routine Consult Gastroenterology Routine Procedures Performed Operation Date: 03/31/20 08:30 Actual Procedures p EGD Hemostasis - Chely Sigala M.D. EGD:Normal esophagus. Normal stomach. Biopsied. One non-bleeding duodenal ulcer with pigmented material. Treated with heat therapy (soft coagulation). Normal duodenal bulb and second portion of the duodenum. Hospital Course (1) Upper GI bleed: (2) Coagulopathy: Acute upper gastrointestinal bleeding In setting of coagulopathy due to Coumadin --EGD:Normal esophagus. Normal stomach. Biopsied. One non-bleeding duodenal ulcer with pigmented material. Treated with heat therapy (soft coagulation). Normal duodenal bulb and second portion of the duodenum. --INR reversed:1.6 S/P VIt K IV Protonix will be transitioned to p.o. Protonix twice daily for 1 month and then once daily Appreciate GI input Clear liquid diet, advance as tolerated Monitor CBC Avoid NSAIDs Aspirin, Coumadin ok to resume tomorrow as per GI Pathology pending Needs follow-up with GI for repeat EGD as outpatient (3) Abscess: small superficial abscess noted under right breast s/p I&D in ED, no packing needed wound Culture: Coagulase negative staph No plan to start antibiotics currently (4) History of DVT (deep vein thrombosis): holding Coumadin as above H/O IVC filter (5) History of TIA (transient ischemic attack): Resume ASA Continue statin (6) DM type 2 (diabetes mellitus, type 2): Hb A1c 6.8 12/2019 hold oral agents and utilize SSI while hospitalized (7) Hypertension: continue Losartan (8) DVT prophylaxis: SCDs Re:GI bleeding Total Time Total Time Spent Total Time Spent (In Minutes): 39 minutes Total Time Includes: Examination of the Patient, Discharge Planning, Medication Reconciliation, Communication With Other Providers and Other Discharge Plan Discharge Items Patient Disposition: Home - Self-Care Reason For Visit: UPPER GI BLEED Discharge Diagnosis: Acute upper gastrointestinal bleeding Activity: Resume your previous activity Exercise/Sports: Gradually increase as tolerated Non-emergency contact: Primary Care Provider and Liquor Store Manager Call non-emergency contact if: you have any medication questions, your symptoms worsen, your pain is not controlled, your pain is worsening, your pain is unusual for you, your pain is concerning for you and you have a fever Follow-up/Referrals: Duong Looney MD [Primary Care Provider] - Diet: Carb Consistent or DM2 Addtl Attending Provider Instructions: Follow-up with your primary care physician Little GARZA on April 06, 2020 at 8:00 AM as scheduled Follow-up with your marketing account manager Dr. Sigala in 3 months for repeat endoscopy for further evaluation of your duodenal ulcer. Continue Protonix 40 mg twice a day for 1 month and then once daily as recommended by your marketing account manager Take iron supplements as prescribed for at least 6 weeks. Seek immediate medical attention if your symptoms reoccur or worsen Your pathology report is currently pending. Follow-up with your physician for results. You can start taking aspirin, Coumadin starting 04/03/20 as per your marketing account manager. If you notice recurrence of any bleeding issues, stop these medications immediately and discuss with your physician for further recommendations. Pending Studies at Discharge: Yes Studies:: Pathology Stand-Alone Forms: My [facility], Smoking Cessation Medications and DC Order Prescriptions: New ferrous sulfate 325 mg (65 mg iron) Tablet,Delayed Release (Dr/Ec) 325 mg PO QAM Qty: 45 RF: 0 pantoprazole [Protonix] 40 mg tablet,delayed release (DR/EC) 40 mg PO BID Qty: 60 RF: 1 Continued atorvastatin 10 mg tablet 10 mg PO DAILY RF: 0 warfarin 5 mg tablet 5 mg PO MOTUWEFRSA RF: 0 losartan 25 mg tablet 25 mg PO DAILY RF: 0 gabapentin 300 mg capsule 300 mg PO TID RF: 0 furosemide 20 mg tablet See Rx Instructions .ROUTE .COMPLEX RF: 0 metformin 500 mg tablet 500 mg PO BID RF: 0 aspirin 81 mg Tablet,Delayed Release (Dr/Ec) 81 mg PO DAILY RF: 0 warfarin 5 mg tablet 7.5 mg PO SUTH RF: 0 Discharge Orders: Discharge Order (Routine); Ordered 04/01/20 Ordered By: Dennis Garcia Admission Data Admit Date/Time: 03/31/20 13:42 Attending Provider: Dennis Garcia Admit Provider: Laila Parks Primary Care Provider: Duong Looney Other Providers: Laila Parks ; Jovon,Chely Other Interventions: Discharge Summary Assessment (RN) Last Done: 03/31/20 10:40 DC Date/Time DO NOT enter until pt leaves facility: 04/01/20 17:10
[2020-04-02] MEDS ORDERED: FERROUS SULFATE 325 MG TAB PO SCH (09:00)
== END 2020-04-01 17:10 | disposition home or self-care (01) | DRG 378 ==
LOC: ED 11:46 → 2W 11:46 → SUATTDRO 13:56 → 2W 15:36

== ENCOUNTER 2021-09-16 19:04 | Inpatient (IN) ==
[2021-09-16] MEDS ORDERED: SODIUM CHLORIDE 0.9% 1000ML 500 ML IV ONE (19:26)
--- NOTE | 2021-09-16 19:27 | Emergency Department Note ---
Impression & Plan Hypoxia ADMIT ED Provider Note HPI: The patient is an 85-year-old female with history of diabetes, history of PE on warfarin, presents the emergency department with chief complaint of a food bolus sensation in her right anterior throat. Shortly prior to arrival the patient was eating chicken breast for dinner when she believes that she choked on a piece of chicken. Heimlich maneuver was performed by the family x3 without expulsion of the mass. EMS was contacted and on their arrival the patient was noted to have oxygen saturations at 90% on room air and was placed on nasal cannula oxygen with good improvement. On arrival to the ED the patient is hemodynamically stable on nasal cannula oxygen with good oxygen saturations, she does complain of a foreign body sensation but otherwise is in no acute distress. ROS: -HEENT: Foreign body sensation in throat *10 point review systems was conducted and is otherwise negative unless stated above *Outpatient medications and allergy history reviewed PE: General: Alert, NAD HEENT: Normocephalic, atraumatic, trachea midline, nasal cannula oxygen in place, uvula is midline, no evidence of mass within the posterior pharynx on direct visualization Eyes: Extraocular eye movement is intact, no scleral erythema Pulmonary: mild expiratory wheezing bilaterally and throughout Cardio: Regular rate and rhythm GI: Abdomen is soft, nontender : No suprapubic tenderness MSK: No evidence of trauma or malformation of the extremities, no edema Skin: No evidence of rash Neuro: Alert, no focal deficits Psychiatric: Cooperative media monitor: - An order was placed for continuous cardiac monitoring - Patient was noted to be in sinus rhythm with rate of 75 CT NECK: Impression: Exam is degraded by patient motion. No radiodense foreign body is seen in the visualized aerodigestive tract. No discrete mass lesion or cervical lymphadenopathy. Severe atherosclerosis of the carotid bifurcations. Retropharyngeal course of the internal carotid arteries. Moderate to severe degenerative change in the cervical spine which yields varying degrees of foraminal narrowing. No high-grade spinal canal stenosis is seen. Radiologist: Woody Freitas MD Study ready at 20:55 and initial results transmitted at 21:16 Medical Decision Making: Patient presented to the emergency department with an abnormal sensation in her anterior throat/foreign body sensation after eating some chicken tonight for dinner. On arrival here to the ED she is stable on nasal cannula oxygen. She does not have any evidence of active bleeding or mass in the posterior pharynx on my initial evaluation, she has some mild wheezing bilaterally on auscultation, her abdomen is soft and nontender. She does not have any stridor on arrival. IV was established, chest x-ray shows possible mass within the supraclavicular area of the right soft tissue of the neck. Discussed with radiology, Dr. Leann yang, this finding is nonspecific and could also possibly be artifact. Case was also discussed with the on-call ENT provider, Dr. Forbes, recommended CT imaging of the neck to further differentiate where the mass could possibly be. Given the patient's hemodynamic stability I did order CT imaging of the neck that does not show any evidence within the aerodigestive tract. The airway appears large ly patent. Despite this, the patient did complain of an abnormal sensation on the right side of her neck. She was given a dose of IV Ativan as she was becoming increasingly anxious. Given this abnormal sensation I did perform direct visualization utilizing a flex B scope 3.8mm, this was utilizing topical anesthesia with Cetacaine spray to the posterior pharynx, patient tolerated this procedure well, direct visualization of the vocal cords was obtained with a clear image and there is no evidence of any mass within the airway, no evidence of foreign body, there is no vocal cord edema/swelling, there is no evidence of any bleeding. Despite these negative findings the patient remained symptomatic from the standpoint of wheezing, I am suspicious that her choking episode may have led to some bronchospasm, she was given a DuoNeb breathing treatment and IV Solu- Medrol. She symptomatically improved on my reassessment. Patient was briefly trialed off nasal cannula oxygen while she was here in the ED and had a desaturation to 88%, with her audible wheezing at this point I do believe she w ould benefit from admission for DuoNeb breathing treatments and further care for bronchospasm with hypoxia. Case was discussed with the on-call hospitalist for [facility], Dr. Serrano, who accepted the patient to an inpatient bed for further care. Patient was in agreement for admission, and on reassessment she states she feels improved, she was admitted in stable condition. * Diagnosis: Bronchospasm, hypoxia, foreign body sensation in throat * Disposition: Admission * CRITICAL CARE TIME: 37 min -Management of hypoxia with oxygen saturations less than 90% on room air requiring nasal cannula supplemental oxygen for stabilization, time spent at the bedside independent of procedures, interpretation of diagnostic studies, discussion with other physicians including radiology, ENT, and inpatient admitting services, arrangement of admission Duong Zhao DO Emergency Medicine Past Med/Surg History Medical History (Updated 09/16/21 @ 23:24 by Duong Zhao DO) COPD with asthma Diabetic neuropathy DM type 2 (diabetes mellitus, type 2) History of DVT (deep vein thrombosis) History of TIA (transient ischemic attack) History of uterine cancer Hyperlipidemia Hypertension FDC current use of anticoagulant Surgical History History of back surgery History of cataract surgery History of cholecystectomy History of hysterectomy History of total left knee replacement History of total right knee replacement History of tubal ligation Family History Mother Heart disease Social History Smoking Status: Never smoker Tobacco Type: Cigarettes Hx Alcohol Use: No Hx Substance Use: No Preferred Language: Slovenian Communication Ability: Effective 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 Beliefs That Will Affect Care: None marital status: / Current Living Situation: Family current occupational status: retired Feels Safe at Home: Yes Assistive Devices: Cane Allergies Allergies Allergy/AdvReac Type Severity Reaction Status Date / Time vancomycin Allergy Severe ANAPHYLAXIS Verified 09/16/21 20:23 adhesive Allergy Intermediate RED AND Verified 09/16/21 20:23 ITCHY SKIN prednisone AdvReac Intermediate INCREASED Verified 09/16/21 20:23 HER RECTAL BLEEDING Penicillins AdvReac Unknown CAN'T Verified 09/16/21 20:23 REMEMBER Home Meds Home Medications Medication Instructions Recorded Confirmed aspirin 81 mg tablet,delayed 81 mg PO DAILY 03/30/20 09/16/21 release atorvastatin 10 mg tablet 10 mg PO HS 03/30/20 09/16/21 furosemide 20 mg tablet See Rx Instructions .ROUTE .COMPLEX 03/30/20 09/16/21 gabapentin 300 mg capsule See Rx Instructions .ROUTE .COMPLEX 03/30/20 09/16/21 losartan 25 mg tablet 25 mg PO DAILY 03/30/20 09/16/21 metformin 500 mg tablet 500 mg PO BIDM 03/30/20 09/16/21 warfarin 5 mg tablet See Rx Instructions .ROUTE .COMPLEX 03/30/20 09/16/21 acetaminophen 500 mg tablet 1,000 mg PO Q6H PRN 09/16/21 09/16/21 (Tylenol Extra Strength) albuterol sulfate 90 mcg/actuation 2 puff INHALATION Q4H PRN 09/16/21 09/16/21 aerosol inhaler ferrous sulfate 325 mg (65 mg 325 mg PO BID 09/16/21 09/16/21 iron) tablet,delayed release lorazepam 1 mg tablet 1 mg PO HS 09/16/21 09/16/21 pantoprazole 40 mg tablet,delayed 40 mg PO DAILYBB 09/16/21 09/16/21 release (Protonix) vit C 250 mg-vit E 90 mg-zinc 40 2 tab PO DAILY 09/16/21 09/16/21 mg-copper 1 [id number] capsule (PreserVision AREDS-2) Results & Data (ED) Vital Signs Vital Signs - 24 hr 09/16/21 19:10 09/16/21 19:12 09/16/21 19:30 Temperature 37.0 C Temperature Source Oral Pulse Rate 81 93 H 82 Pulse Rate [Right Radial] Pulse Rate from SpO2 Sensor 95 H 80 Pulse Rhythm Regular Pulse Strength Normal Respiratory Rate 16 22 18 Respiratory Effort / Characteristics Non-Labored Respiratory Depth Normal Blood Pressure 198/89 H Blood Pressure Mean 125 Blood Pressure Position Sitting Pulse Oximetry 94 92 96 Oxygen Delivery Method Nasal Cannula Oxygen Flow Rate Sepsis Recent Fever Within 48 Hours No Sepsis New/Unexplained Change in Mental Status N/A Sepsis Action Taken by Nursing No Action Required 09/16/21 20:00 09/16/21 20:40 09/16/21 21:00 Temperature Temperature Source Pulse Rate 94 H 83 Pulse Rate [Right Radial] Pulse Rate from SpO2 Sensor 91 H Pulse Rhythm Pulse Strength Respiratory Rate 33 H 29 H Respiratory Effort / Characteristics Respiratory Depth Blood Pressure 190/73 H 184/99 H Blood Pressure Mean 112 127 Blood Pressure Position Pulse Oximetry 93 Oxygen Delivery Method Oxygen Flow Rate Sepsis Recent Fever Within 48 Hours Sepsis New/Unexplained Change in Mental Status Sepsis Action Taken by Nursing 09/16/21 21:30 09/16/21 22:00 09/16/21 22:30 Temperature Temperature Source Pulse Rate 90 80 75 Pulse Rate [Right Radial] 75 Pulse Rate from SpO2 Sensor 85 84 73 Pulse Rhythm Pulse Strength Respiratory Rate 28 H 27 H 25 H Respiratory Effort / Characteristics Spontaneous Respiratory Depth Blood Pressure 178/80 H 168/73 H Blood Pressure Mean 112 104 Blood Pressure Position Pulse Oximetry 93 94 96 Oxygen Delivery Method Nasal Cannula Oxygen Flow Rate 2 Sepsis Recent Fever Within 48 Hours Sepsis New/Unexplained Change in Mental Status Sepsis Action Taken by Nursing Laboratory Data Result diagrams: 09/16/21 19:35 09/16/21 19:35 Lab Results 09/16/21 09/16/21 09/16/21 Range/Units 19:35 19:35 19:35 WBC 5.76 (4.8-10.8) K/uL RBC 4.59 (4.2-5.4) M/uL Hgb 13.5 (12.0-16.0) g/dL Hct 41.6 (37-47) % MCV 90.6 (80-100) fL MCH 29.4 (25-34) pg MCHC 32.5 (32-36) g/dL RDW Std Deviation 50.9 H (36.4-46.3) fL RDW Coeff of Ata 15.4 H (11.5-14.5) % Plt Count 173 (130-400) K/uL MPV 10.2 (7.4-10.4) fL Immature Gran % (Auto) 0.2 % Neut % (Auto) 67.6 % Lymph % (Auto) 16.8 % [place] % (Auto) 12.8 % Eos % (Auto) 2.3 % Baso % (Auto) 0.3 % Neut # (Auto) 3.89 (1.4-6.5) K/uL Lymph # (Auto) 0.97 L (1.2-3.4) K/uL [place] # (Auto) 0.74 H (0.11-0.59) K/uL Eos # (Auto) 0.13 (0-0.5) K/uL Baso # (Auto) 0.02 (0-0.2) K/uL Immature Gran # (Auto) 0.01 (0.00-0.02) K/uL PT 21.7 H (9.0-12.0) Seconds INR 2.3 H (0.9-1.1) APTT 32.8 H (21.0-31.0) Seconds PTT Ratio 1.2 VBG pH (7.36-7.41) VBG pCO2 (38-50) mmHg VBG pO2 mmHg VBG HCO3 mmol/L VBG O2 Saturation % VBG Base Excess mEq/L Barometric Pressure mm/Hg Sodium 144 (136-145) mmol/L Potassium 4.1 (3.5-5.1) mmol/L Chloride 108 H (98-107) mmol/L Carbon Dioxide 29 (21-32) mmol/L Anion Gap 6.0 (3-11) BUN 21 H (7-18) mg/dl Creatinine 1.11 (0.6-1.2) mg/dl Est Cr Clr Drug Dosing 43.7 ml/min Est GFR ( Amer) 52.1 ml/min Est GFR (Non-Af Amer) 44.9 ml/min BUN/Creatinine Ratio 18.6 (10-20) Glucose 133 H (70-99) mg/dl Calcium 8.7 (8.5-10.1) mg/dl Total Bilirubin 0.3 (0.2-1) mg/dl AST 20 (15-37) U/L ALT 24 (12-78) U/L Alkaline Phosphatase 99 (45-117) U/L Total Protein 7.3 (6.4-8.2) gm/dl Albumin 3.5 (3.4-5.0) gm/dl Globulin 3.8 (2.5-4.0) gm/dl Albumin/Globulin Ratio 0.9 (0.9-2) Lipase 113 (73-393) U/L 09/16/21 Range/Units 22:46 WBC (4.8-10.8) K/uL RBC (4.2-5.4) M/uL Hgb (12.0-16.0) g/dL Hct (37-47) % MCV (80-100) fL MCH (25-34) pg MCHC (32-36) g/dL RDW Std Deviation (36.4-46.3) fL RDW Coeff of Ata (11.5-14.5) % Plt Count (130-400) K/uL MPV (7.4-10.4) fL Immature Gran % (Auto) % Neut % (Auto) % Lymph % (Auto) % [place] % (Auto) % Eos % (Auto) % Baso % (Auto) % Neut # (Auto) (1.4-6.5) K/uL Lymph # (Auto) (1.2-3.4) K/uL [place] # (Auto) (0.11-0.59) K/uL Eos # (Auto) (0-0.5) K/uL Baso # (Auto) (0-0.2) K/uL Immature Gran # (Auto) (0.00-0.02) K/uL PT (9.0-12.0) Seconds INR (0.9-1.1) APTT (21.0-31.0) Seconds PTT Ratio VBG pH 7.38 (7.36-7.41) VBG pCO2 51 H (38-50) mmHg VBG pO2 66 mmHg VBG HCO3 29 mmol/L VBG O2 Saturation 93.6 % VBG Base Excess 2.9 mEq/L Barometric Pressure 738.3 mm/Hg Sodium (136-145) mmol/L Potassium (3.5-5.1) mmol/L Chloride (98-107) mmol/L Carbon Dioxide (21-32) mmol/L Anion Gap (3-11) BUN (7-18) mg/dl Creatinine (0.6-1.2) mg/dl Est Cr Clr Drug Dosing ml/min Est GFR ( Amer) ml/min Est GFR (Non-Af Amer) ml/min BUN/Creatinine Ratio (10-20) Glucose (70-99) mg/dl Calcium (8.5-10.1) mg/dl Total Bilirubin (0.2-1) mg/dl AST (15-37) U/L ALT (12-78) U/L Alkaline Phosphatase (45-117) U/L Total Protein (6.4-8.2) gm/dl Albumin (3.4-5.0) gm/dl Globulin (2.5-4.0) gm/dl Albumin/Globulin Ratio (0.9-2) Lipase (73-393) U/L Administered Medications Acetaminophen (Ofirmev) 1,000 mg in 100 mls @ 400 mls/hr IV Q8H PRN PRN Reason: Pain Stop: 09/19/21 21:05 Last Infusion: 09/16/21 21:24 Dose: 0 mls/hr Documented by: [id number] Admin: 09/16/21 21:09 Dose: 400 mls/hr Documented by: [id number] Discontinued Medications Acetylcysteine (Acetylcysteine 20% 200 Mg/Ml 30ml Vial) Confirm Administered Dose 200 mg .ROUTE .STK-MED ONE Stop: 09/16/21 21:52 Last Admin: 09/16/21 22:10 Dose: 200 mg Documented by: [id number] Albuterol (Albut/Ipratrop 3mg/0.5mg Neb 3 Ml Vial) 3 ml NEB NOW STA Stop: 09/16/21 22:14 Last Admin: 09/16/21 22:30 Dose: 3 ml Documented by: [id number] Sodium Chloride (Nss 1000ml) 500 mls @ 999 mls/hr IV .Q31M ONE Stop: 09/16/21 19:56 Last Infusion: 09/16/21 20:05 Dose: 0 mls/hr Documented by: [id number] Admin: 09/16/21 19:31 Dose: 999 mls/hr Documented by: [id number] Lorazepam (Ativan) 1 mg in 2 mls @ 2 mls/min IV NOW STA Stop: 09/16/21 21:13 Last Admin: 09/16/21 21:18 Dose: 2 mls/min Documented by: [id number] Ioversol (Optiray 320 100ml) 93 ml IV ONCE ONE Stop: 09/16/21 20:41 Last Admin: 09/16/21 20:41 Dose: 93 ml Documented by: [id number] Methylprednisolone (Methylprednisolone 125 Mg/2 Ml Vial) 125 mg IV NOW STA Stop: 09/16/21 22:13 Last Admin: 09/16/21 22:24 Dose: 125 mg Documented by: [id number] Imaging Data Radiologist's Impression: Chest X-Ray 09/16/21 19:25 XR chest 1V portable HISTORY: 85 years-old Female Chest Pain acute atypical chest pain with possible foreign body COMPARISON: Chest radiograph 04/04/2016 TECHNIQUE: Portable AP view of the chest FINDINGS: There is a linear 1.3 cm radiodensity structure projecting over the right neck. Cardiac silhouette is enlarged. Calcified plaque the thoracic aorta. Pulmonary vascular congestion with reticular interstitial coarsening, progressed from comparison. No pneumothorax. Trace pleural effusions. Degenerative changes of the shoulders and spine with right proximal humeral ORIF changes. IMPRESSION: 1. Linear 1.3 cm radiodensity of the right neck possibly a foreign body within the airway. 2. Cardiomegaly with pulmonary vascular congestion. 3. Trace pleural effusions. ACT 112: Negative or not required by law. The above report was generated using voice recognition software. It may contain grammatical, syntax or spelling errors. Electronically signed by: Ben Acevedo M.D. 09/16/2021 7:44 PM Discharge Plan Visit Data Chief Complaint: Food Bolus Stated Complaint: choking ED Provider: Duong Zhao Discharge Problem: Hypoxia Forms Stand Alone Forms: [employer] [facility] [employer] Prescriptions Prescriptions: No Action atorvastatin 10 mg tablet 10 mg PO HS RF: 0 warfarin 5 mg tablet See Rx Instructions .ROUTE .COMPLEX RF: 0 losartan 25 mg tablet 25 mg PO DAILY RF: 0 gabapentin 300 mg capsule See Rx Instructions .ROUTE .COMPLEX RF: 0 furosemide 20 mg tablet See Rx Instructions .ROUTE .COMPLEX RF: 0 metformin 500 mg tablet 500 mg PO BIDM RF: 0 aspirin 81 mg Tablet,Delayed Release (Dr/Ec) 81 mg PO DAILY RF: 0 acetaminophen [Tylenol Extra Strength] 500 mg Tablet 1,000 mg PO Q6H PRN (Reason: Pain) RF: 0 lorazepam 1 mg Tablet 1 mg PO HS RF: 0 albuterol sulfate 90 mcg/actuation Hfa Aerosol Inhaler 2 puff INHALATION Q4H PRN (Reason: Wheezing) RF: 0 PreserVision AREDS-2 250-90-40-1 mg Capsule 2 tab PO DAILY RF: 0 pantoprazole [Protonix] 40 mg tablet,delayed release (DR/EC) 40 mg PO DAILYBB RF: 0 ferrous sulfate 325 mg (65 mg iron) tablet,delayed release (DR/EC) 325 mg PO BID RF: 0 Referrals Referrals: Duong Looney MD [Primary Care Provider] -
[2021-09-16 19:44] LABS: Basophils # (auto) 0.02 K/uL (0-0.2); Basophils % (auto) 0.3 %; Eosinophils # (auto) 0.13 K/uL (0-0.5); Eosinophils % (auto) 2.3 %; Hematocrit (blood only) 41.6 % (37-47); Hemoglobin 13.5 g/dL (12.0-16.0); Immature Granulocytes # (auto) 0.01 K/uL (0.00-0.02); Immature Granulocytes % (auto) 0.2 %; Lymphocytes # (auto) 0.97 K/uL (1.2-3.4); Lymphocytes % (auto) 16.8 %; Mean Corpuscular Hemoglobin 29.4 pg (25-34); Mean Corpuscular Hgb Conc 32.5 g/dL (32-36); Mean Corpuscular Volume 90.6 fL (80-100); Mean Platelet Volume 10.2 fL (7.4-10.4); Monocytes # (auto) 0.74 K/uL (0.11-0.59); Monocytes % (auto) 12.8 %; Neutrophils # (auto) 3.89 K/uL (1.4-6.5); Neutrophils % (auto) 67.6 %; Platelet Count 173 K/uL (130-400); RDW Coefficient of Variation 15.4 % (11.5-14.5); RDW Standard Deviation 50.9 fL (36.4-46.3); Red Blood Count 4.59 M/uL (4.2-5.4); White Blood Count 5.76 K/uL (4.8-10.8)
--- NOTE | 2021-09-16 19:46 | XRay Report ---
XR chest 1V portable HISTORY: 85 years-old Female Chest Pain acute atypical chest pain with possible foreign body COMPARISON: Chest radiograph 04/04/2016 TECHNIQUE: Portable AP view of the chest FINDINGS: There is a linear 1.3 cm radiodensity structure projecting over the right neck. Cardiac silhouette is enlarged. Calcified plaque the thoracic aorta. Pulmonary vascular congestion with reticular intersti tial coarsening, progressed from comparison. No pneumothorax. Trace pleural effusions. Degenerative c hanges of the shoulders and spine with right proximal humeral ORIF changes. IMPRESSION: 1. Linear 1.3 cm radiodensity of the right neck possibly a foreign body within the airway. 2. Cardiomegaly with pulmonary vascular congestion. 3. Trace pleural effusions. ACT 112: Negative or not required by law. The above report was generated using voice recognition software. It may contain grammatical, syntax o r spelling errors. Electronically signed by: Ben Acevedo M.D. 09/16/2021 7:44 PM
[2021-09-16 19:54] LABS: INR 2.3 (0.9-1.1); Partial Thromboplastin Ratio 1.2; Partial Thromboplastin Time 32.8 Seconds (21.0-31.0); Prothrombin Time 21.7 Seconds (9.0-12.0)
[2021-09-16 20:01] LABS: Alanine Aminotransferase 24 U/L (12-78); Albumin Level 3.5 gm/dl (3.4-5.0); Aspartate Aminotransferase 20 U/L (15-37); BUN Creatinine Ratio 18.6 (10-20); Blood Urea Nitrogen 21 mg/dl (7-18); Calcium 8.7 mg/dl (8.5-10.1); Carbon Dioxide 29 mmol/L (21-32); Chloride 108 mmol/L (98-107); Creatinine Clr Calc Pharmacy 43.7 ml/min; Est GFR (African American) 52.1 ml/min; Est GFR (Non-African American) 44.9 ml/min; Glucose 133 mg/dl (70-99); Lipase 113 U/L (73-393); Potassium 4.1 mmol/L (3.5-5.1); Sodium 144 mmol/L (136-145)
[2021-09-16 20:04] LABS: Albumin Globulin Ratio 0.9 (0.9-2); Alkaline Phosphatase 99 U/L (45-117); Bilirubin,Total 0.3 mg/dl (0.2-1); Globulin 3.8 gm/dl (2.5-4.0); Total Protein 7.3 gm/dl (6.4-8.2)
[2021-09-16] MEDS ORDERED: OPTIRAY 320 100ml IV ONE (20:40)
[2021-09-16] MEDS ORDERED: ACETAMINOPHEN 1,000 MG/100 ML VIAL IV PRN (21:06)
[2021-09-16] MEDS ORDERED: LORazepam 1 MG/2 ML VIAL IV STA (21:12)
[2021-09-16] MEDS ORDERED: ACETYLCYSTEINE 20% 200 MG/ML 30ML VIAL ONE (21:51)
[2021-09-16] MEDS ORDERED: methylPREDNISolone 125 MG/2 ML VIAL IV STA (22:12)
[2021-09-16] MEDS ORDERED: ALBUT/IPRATROP 3MG/0.5MG NEB 3 ML VIAL NEB STA (22:13)
[2021-09-16 23:04] LABS: Base Excess VBG 2.9 mEq/L; Oxygen Saturation VBG 93.6 %; pH VBG 7.38 (7.36-7.41)
--- NOTE | 2021-09-17 00:05 | History & Physical Report ---
Date of Service September 17, 2021 Assessment & Plan (1) Respiratory failure: Plan: Likely secondary to bronchospasm from possible aspiration event secondary to foreign body impaction at the esophagus along with pulmonary congestion on CXR hx COPD as per records Concern for esophageal dysmotility as per patient account PE on Coumadin, INR therapeutic New onset A. fib possibly from uncontrolled hypertension secondary to patient discomfort, currently rate controlled although with PVCs on EKG/monitor hyperlipidemia/statin intolerance as per records hx TIA as per records DM2 on oral medications, well-controlled as of recent hemoglobin A1c of 6.16 January 2021 uterine cancer status post surgery past tobacco abuse PCU given new onset A. fib and uncontrolled BP Supplemental O2 Nebs as needed Lasix 1 dose Analgesia Titrate home losartan Lopressor for PVCs TTE, Cardiology consult Re: New onset A. fib GI consult Re: Esophageal foreign body N.p.o., hold Coumadin until patient seen by GI in a.m. Aspiration precautions, swallow eval Basal insulin adjusted for n.p.o. status, ISS BG goal 1 10-1 40, update hemoglobin A1c DVT prophylaxis. SCDs if INR less than 2 while Coumadin on hold in anticipation of procedure Full code Text document was generated using [employer] voice recognition software. It may contain grammatical or spelling errors. Kindly contact undersigned for clarification of any documentation item in question. History of Present Illness Chief Complaint: Choking as per patient Primary Care Provider: Duong Looney MD History obtained from patient and records. Medical history significant for COPD, PE on Coumadin, hypertension, hyperlipidemia, statin intolerance as per records, TIA as per records, DM2 on oral medications, uterine cancer status post surgery, RLS, past tobacco abuse Last confinement March 2020 for UGIB. Nonbleeding duodenal ulcer noted on EGD. Patient discharged on PPI. Aspirin and Coumadin subsequently resumed. Patient was eating chicken breast for dinner last night when she felt like she choked on something. Dry cough symptoms with sore throat, shortness of breath and wheezing noted at home. Patient unsure about fluid retention symptoms. Chest pain from coughing. Patient admits to coughing with meals/water intake from time to time even before episode last night. Unsuccessful expulsion of suspected food impaction after attempted Heimlich maneuver by family members. Patient noted to be stridorous and O2 sats sats 90s on room air upon arrival of EMS. Patient given Solu-Medrol and neb treatment at the ER. Patient still with sore throat/foreign body sensation symptoms. Able to swallow her saliva. Patient noted to be in atrial fibrillation at the ER. No prior diagnosis as per patient/records. 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 Allergies Allergy/AdvReac Type Severity Reaction Status Date / Time vancomycin Allergy Severe ANAPHYLAXIS Verified 09/16/21 20:23 adhesive Allergy Intermediate RED AND Verified 09/16/21 20:23 ITCHY SKIN prednisone AdvReac Intermediate INCREASED Verified 09/16/21 20:23 HER RECTAL BLEEDING Penicillins AdvReac Unknown CAN'T Verified 09/16/21 20:23 REMEMBER Home Medications Medication Instructions Recorded Confirmed Type aspirin 81 mg tablet,delayed 81 mg PO DAILY 03/30/20 09/16/21 History release atorvastatin 10 mg tablet 10 mg PO HS 03/30/20 09/16/21 History furosemide 20 mg tablet See Rx Instructions .ROUTE .COMPLEX 03/30/20 09/16/21 History gabapentin 300 mg capsule See Rx Instructions .ROUTE .COMPLEX 03/30/20 09/16/21 History losartan 25 mg tablet 25 mg PO DAILY 03/30/20 09/16/21 History metformin 500 mg tablet 500 mg PO BIDM 03/30/20 09/16/21 History warfarin 5 mg tablet See Rx Instructions .ROUTE .COMPLEX 03/30/20 09/16/21 History acetaminophen 500 mg tablet 1,000 mg PO Q6H PRN 09/16/21 09/16/21 History (Tylenol Extra Strength) albuterol sulfate 90 mcg/actuation 2 puff INHALATION Q4H PRN 09/16/21 09/16/21 History aerosol inhaler ferrous sulfate 325 mg (65 mg 325 mg PO BID 09/16/21 09/16/21 History iron) tablet,delayed release lorazepam 1 mg tablet 1 mg PO HS 09/16/21 09/16/21 History pantoprazole 40 mg tablet,delayed 40 mg PO DAILYBB 09/16/21 09/16/21 History release (Protonix) vit C 250 mg-vit E 90 mg-zinc 40 2 tab PO DAILY 09/16/21 09/16/21 History mg-copper 1 [id number] capsule (PreserVision AREDS-2) Past Med/Surg History Medical History (Updated 09/17/21 @ 08:51 by Zenaida Solis MD) COPD with asthma Diabetic neuropathy DM type 2 (diabetes mellitus, type 2) History of DVT (deep vein thrombosis) History of TIA (transient ischemic attack) History of uterine cancer Hyperlipidemia Hypertension jail current use of anticoagulant Surgical History History of back surgery History of cataract surgery History of cholecystectomy History of hysterectomy History of total left knee replacement History of total right knee replacement History of tubal ligation Family History Mother Heart disease Social History Smoking Status: Never smoker Tobacco Type: Cigarettes Hx Alcohol Use: No Hx Substance Use: No Preferred Language: Welsh Communication Ability: Effective Communication Ability Comment: hearing deficit Energy Auditor Required: No Beliefs That Will Affect Care: None marital status: / Current Living Situation: Family current occupational status: retired Other Information That Helps Us Care for You: No Feels Safe at Home: Yes Assistive Devices: Oxygen - Continuous Review of Systems Review of Systems: As per HPI, all 10 systems reviewed, all other ROS negative Physical Exam Physical Exam: GENERAL: Slightly anxious and uncomfortable, no stridor, morbidly obese, no respiratory distress SKIN: Normal color, warm HEENT: [place] palpebral conjunctivae, no ptosis, moist buccal mucosa, nasal cannula in place NECK : Supple, short neck, no tenderness CHEST : Decreased breath sounds, no tenderness HEART : Irregular, no obvious murmurs ABDOMEN: distention, nontender EXTREMITIES : Bilateral LE swelling, no LE tenderness, no other conspicuous deformities noted NEUROLOGIC : Coherent, no facial asymmetry, no other gross focality Results & Data Results & Data ([facility]) Vital Signs (Past 12 Hours) Vital Signs Temp Pulse Pulse Resp BP Pulse Ox 09/16/21 22:30 75 75 25 H 168/73 H 96 09/16/21 22:00 80 27 H 94 09/16/21 21:30 90 28 H 178/80 H 93 09/16/21 21:00 83 29 H 184/99 H 93 09/16/21 20:40 190/73 H 09/16/21 20:00 94 H 33 H 09/16/21 19:30 82 18 96 09/16/21 19:12 93 H 22 92 09/16/21 19:10 37.0 C 81 16 198/89 H 94 Laboratory Results Laboratory Results WBC 5.76 K/uL (4.8-10.8) 09/16/21 19:35 RBC 4.59 M/uL (4.2-5.4) 09/16/21 19:35 Hgb 13.5 g/dL (12.0-16.0) 09/16/21 19:35 Hct 41.6 % (37-47) 09/16/21 19:35 MCV 90.6 fL (80-100) 09/16/21 19:35 MCH 29.4 pg (25-34) 09/16/21 19:35 MCHC 32.5 g/dL (32-36) 09/16/21 19:35 RDW Std Deviation 50.9 fL (36.4-46.3) H 09/16/21 19:35 RDW Coeff of Ata 15.4 % (11.5-14.5) H 09/16/21 19:35 Plt Count 173 K/uL (130-400) 09/16/21 19:35 MPV 10.2 fL (7.4-10.4) 09/16/21 19:35 Immature Gran % (Auto) 0.2 % 09/16/21 19:35 Neut % (Auto) 67.6 % 09/16/21 19:35 Lymph % (Auto) 16.8 % 09/16/21 19:35 Sawyer % (Auto) 12.8 % 09/16/21 19:35 Eos % (Auto) 2.3 % 09/16/21 19:35 Baso % (Auto) 0.3 % 09/16/21 19:35 Neut # (Auto) 3.89 K/uL (1.4-6.5) 09/16/21 19:35 Lymph # (Auto) 0.97 K/uL (1.2-3.4) L 09/16/21 19:35 Sawyer # (Auto) 0.74 K/uL (0.11-0.59) H 09/16/21 19:35 Eos # (Auto) 0.13 K/uL (0-0.5) 09/16/21 19:35 Baso # (Auto) 0.02 K/uL (0-0.2) 09/16/21 19:35 Immature Gran # (Auto) 0.01 K/uL (0.00-0.02) 09/16/21 19:35 PT 21.7 Seconds (9.0-12.0) H 09/16/21 19:35 INR 2.3 (0.9-1.1) H 09/16/21 19:35 APTT 32.8 Seconds (21.0-31.0) H 09/16/21 19:35 PTT Ratio 1.2 09/16/21 19:35 VBG pH 7.38 (7.36-7.41) 09/16/21 22:46 VBG pCO2 51 mmHg (38-50) H 09/16/21 22:46 VBG pO2 66 mmHg 09/16/21 22:46 VBG HCO3 29 mmol/L 09/16/21 22:46 VBG O2 Saturation 93.6 % 09/16/21 22:46 VBG Base Excess 2.9 mEq/L 09/16/21 22:46 Barometric Pressure 738.3 mm/Hg 09/16/21 22:46 Sodium 144 mmol/L (136-145) 09/16/21 19:35 Potassium 4.1 mmol/L (3.5-5.1) 09/16/21 19:35 Chloride 108 mmol/L (98-107) H 09/16/21 19:35 Carbon Dioxide 29 mmol/L (21-32) 09/16/21 19:35 Anion Gap 6.0 (3-11) 09/16/21 19:35 BUN 21 mg/dl (7-18) H 09/16/21 19:35 Creatinine 1.11 mg/dl (0.6-1.2) 09/16/21 19:35 Est Cr Clr Drug Dosing 43.7 ml/min 09/16/21 19:35 Est GFR ( Amer) 52.1 ml/min 09/16/21 19:35 Est GFR (Non-Af Amer) 44.9 ml/min 09/16/21 19:35 BUN/Creatinine Ratio 18.6 (10-20) 09/16/21 19:35 Glucose 133 mg/dl (70-99) H 09/16/21 19:35 Calcium 8.7 mg/dl (8.5-10.1) 09/16/21 19:35 Total Bilirubin 0.3 mg/dl (0.2-1) 09/16/21 19:35 AST 20 U/L (15-37) 09/16/21 19:35 ALT 24 U/L (12-78) 09/16/21 19:35 Alkaline Phosphatase 99 U/L (45-117) 09/16/21 19:35 Total Protein 7.3 gm/dl (6.4-8.2) 09/16/21 19:35 Albumin 3.5 gm/dl (3.4-5.0) 09/16/21 19:35 Globulin 3.8 gm/dl (2.5-4.0) 09/16/21 19:35 Albumin/Globulin Ratio 0.9 (0.9-2) 09/16/21 19:35 Lipase 113 U/L (73-393) 09/16/21 19:35 COVID-19 Eval Order Covid19 at [facility] 09/16/21 23:13 Impressions Chest X-Ray 09/16/21 19:25 XR chest 1V portable HISTORY: 85 years-old Female Chest Pain acute atypical chest pain with possible foreign body COMPARISON: Chest radiograph 04/04/2016 TECHNIQUE: Portable AP view of the chest FINDINGS: There is a linear 1.3 cm radiodensity structure projecting over the right neck. Cardiac silhouette is enlarged. Calcified plaque the thoracic aorta. Pulmonary vascular congestion with reticular interstitial coarsening, progressed from comparison. No pneumothorax. Trace pleural effusions. Degenerative changes of the shoulders and spine with right proximal humeral ORIF changes. IMPRESSION: 1. Linear 1.3 cm radiodensity of the right neck possibly a foreign body within the airway. 2. Cardiomegaly with pulmonary vascular congestion. 3. Trace pleural effusions. ACT 112: Negative or not required by law. The above report was generated using voice recognition software. It may contain grammatical, syntax or spelling errors. Electronically signed by: Ben Acevedo M.D. 09/16/2021 7:44 PM Diagnostic Findings Soft tissue neck CT initial read: Examis degraded bypatient motion. No radiodense foreign bodyis seen in the visualized aerodigestive tract. No discrete mass lesion or cervical lymphadenopathy. Severe atherosclerosis of the carotid bifurcations. Retropharyngeal course of the internal carotid arteries. Moderate to severe degenerative change in the cervical spine which yields varying degrees of foraminal narrowing. No high-grade spinal canal stenosis is seen CT chest initial read: There is a normal 14 x 9 mmdensityat the origin of the esophaguswhich could represent retained food bolus. The remainder of the esophagus is nondilated and appears unremarkable. No pneumomediastinumis seen. The aorta is moderatelycalcified but nondilated. Mild cardiomegalywith severe coronarycalcification and moderate mitral calcification. No pericardial effusion. Vascular congestion with prominent interstitial markings in the lung bases likelymild CHF. Previous right proximal humeral fracture fixation. There are moderate degenerative changes throughout the thoracic spine. No acute fracture or bone lesion is seen. Foreign body also seen on earlier soft tissue neck CT as per conversation with telemetry radiologist. EKG as per my interpretation: Rate 90, A. fib, normal axis, no ischemia, PVCs, low voltage
[2021-09-17] MEDS ORDERED: LOSARTAN POTASSIUM 25 MG TAB PO STA (00:09)
[2021-09-17] MEDS ORDERED: COUGH DROP (SUGAR FREE) LOZ 24 LOZ/1 BOX BUCCAL STA (00:14)
[2021-09-17] MEDS ORDERED: traMADol HCL 50 MG TABLET PO STA (00:14)
[2021-09-17] MEDS ORDERED: COUGH DROP (SUGAR FREE) LOZ 24 LOZ/1 BOX BUCCAL PRN (00:14)
[2021-09-17] MEDS ORDERED: METOPROLOL TARTRATE 50 MG TAB PO STA (00:21)
[2021-09-17 00:33] LABS: Magnesium 1.5 mg/dl (1.8-2.4); NT Pro B Type Natriuretic Pept 1291 pg/ml (0-1800)
[2021-09-17 00:50] LABS: Troponin I < 0.015 ng/ml (0-0.045)
[2021-09-17] MEDS ORDERED: XOPENEX/ATROVENT 1.25mg/0.5MG NEB COMBO NEB SCH (01:00)
[2021-09-17] MEDS ORDERED: FUROSEMIDE 40 MG/4 ML VIAL IV ONE (01:00)
[2021-09-17] MEDS ORDERED: ACETAMINOPHEN 325 MG TAB PO PRN (01:10)
[2021-09-17] MEDS ORDERED: DEXTROSE 50% 50 ML SYRINGE IV PRN (01:10)
[2021-09-17] MEDS ORDERED: CARBOHYDRATES FOR HYPOGLYCEMIA PO PRN (01:10)
[2021-09-17] MEDS ORDERED: traMADol HCL 50 MG TABLET PO PRN (01:10)
[2021-09-17] MEDS ORDERED: GLUCAGON FOR INJ 1 MG VIAL SQ PRN (01:10)
[2021-09-17] MEDS ORDERED: GLUCOSE 10 TABS/TUBE PO PRN (01:10)
[2021-09-17] MEDS ORDERED: PROMETHAZINE HCL 12.5 MG in SODIUM CHLORIDE 0.9% 50 ML IV PRN (01:10)
[2021-09-17] MEDS ORDERED: GLUCOSE 40% GEL 15 GM TUBE PO PRN (01:10)
[2021-09-17] MEDS: LEVALBUTEROL 1.25MG/0.5ML NEB INH SCH ×2 (01:31→08:03)
[2021-09-17] MEDS: IPRATROPIUM BROMIDE NEB SOLN 0.02% 2.5 ML VIAL INH SCH ×2 (01:31→08:02)
[2021-09-17] MEDS: MAGNESIUM SULFATE / D5W 1 GM/100 ML BAG IV SCH ×2 (01:40→03:23)
[2021-09-17] MEDS: INSULIN ASPART 100 UNITS/ML 3 ML PEN SC SCH ×5 (02:02→21:48)
[2021-09-17] MEDS ORDERED: INSULIN GLARGINE SOLOSTAR 100 UNITS/ML 3 ML PEN SC STA (04:05)
[2021-09-17 05:00] LABS: Basophils # (auto) 0.01 K/uL (0-0.2); Basophils % (auto) 0.2 %; Hematocrit (blood only) 41.2 % (37-47); Hemoglobin 13.2 g/dL (12.0-16.0); Immature Granulocytes # (auto) 0.01 K/uL (0.00-0.02); Immature Granulocytes % (auto) 0.2 %; Lymphocytes # (auto) 0.46 K/uL (1.2-3.4); Lymphocytes % (auto) 10.5 %; Mean Corpuscular Hemoglobin 29.6 pg (25-34); Mean Corpuscular Volume 92.4 fL (80-100); Mean Platelet Volume 10.5 fL (7.4-10.4); Monocytes # (auto) 0.08 K/uL (0.11-0.59); Monocytes % (auto) 1.8 %; Neutrophils # (auto) 3.82 K/uL (1.4-6.5); Neutrophils % (auto) 87.3 %; Platelet Count 151 K/uL (130-400); RDW Coefficient of Variation 15.4 % (11.5-14.5); RDW Standard Deviation 51.9 fL (36.4-46.3); Red Blood Count 4.46 M/uL (4.2-5.4); White Blood Count 4.38 K/uL (4.8-10.8)
[2021-09-17 05:09] LABS: INR 2.2 (0.9-1.1); Prothrombin Time 20.7 Seconds (9.0-12.0)
[2021-09-17] MEDS: PANTOprazole 40 MG TAB PO SCH (05:20)
[2021-09-17 05:23] LABS: BUN Creatinine Ratio 16.7 (10-20); Calcium 8.7 mg/dl (8.5-10.1); Creatinine Clr Calc Pharmacy 42.2 ml/min; Est GFR (African American) 49.9 ml/min; Magnesium 2.2 mg/dl (1.8-2.4); Potassium 3.9 mmol/L (3.5-5.1)
--- NOTE | 2021-09-17 06:40 | CT Scan Report ---
CT soft tissue neck w con HISTORY: 85 years-old Female eval for FB, FB sensation anterior throat possible foreign body ingesti on COMPARISON: Chest CT of same day, chest radiograph 09/16/2021 TECHNIQUE: Multiple axial CT images of the soft tissues of the neck were obtained following the intra venous distribution of 93 mL Optiray 320. A dose lowering technique was used consistent with the prin cipals of ALARA. FINDINGS: No acute abnormality of the imaged intracranial structures. Prior bilateral lens repair. The nasophar ynx, oral pharynx and hypopharynx are patent. The glottis and subglottic airway appears normal. The s tudy is motion degraded. 2.9 x 0.7 cm radiodense structure is noted at the upper esophagus on image 3 30 correlating with the finding seen on the chest CT of same day. No pneumomediastinum. Intralobular septal thickening of the lung apices. No pneumothorax. No adenopathy no prevertebral fluid collection s. Degenerative changes of the spine and shoulders. ORIF changes of the proximal right humerus. Masto id air cells are clear. Mild mucosal thickening of the paranasal sinuses. IMPRESSION: 2.9 x 0.7 cm foreign body of the upper esophageal sphincter without evidence of perforati on or associated inflammatory change. There is no foreign body within the airway. ACT 112: Negative or not required by law. The above report was generated using voice recognition software. It may contain grammatical, syntax o r spelling errors. Electronically signed by: Ben Acevedo M.D. 09/17/2021 6:39 AM
--- NOTE | 2021-09-17 06:46 | CT Scan Report ---
CT chest diagnostic wo con CT DOSE: 1189.13 mGy.cm CLINICAL HISTORY: 85 years-old Female with cough, poss FB aspiration. Acute cough with foreign body TECHNIQUE: Multiaxial CT images of the chest were performed without contrast. A dose lowering techni que was utilized adhering to the principles of ALARA. COMPARISON: Soft tissue neck 09/16/2021, chest CT 07/18/2006 FINDINGS: 2.9 x 0.7 x 2.2 cm transversely oriented radiodense structure of the upper esophageal sphin cter at the level of C7 correlates with the patient's history of ingested chicken bone. No evidence o f perforation or pneumomediastinum. Mild associated upper esophageal wall thickening. Heterogeneous t hyroid. Numerous prominent borderline enlarged mediastinal lymph nodes measure up to 11 mm, increased in size from comparison. Moderate cardiomegaly. Extensive coronary artery calcifications. Atheroscle rosis of the thoracic aorta. Trace pleural effusions. Intralobular septal thickening with intermixed groundglass densities. No pneumothorax. Dependent subsegmental bibasilar consolidation. Suggested mil d emphysema. 7 mm nodular density of the right lung apex is suggestive of pleural-parenchymal scarrin g. The central airways are patent. No acute process of the imaged upper abdomen. Unremarkable soft tissues. Degenerative changes of the shoulders and spine. ORIF changes of the proximal right humerus. IMPRESSION: 1. 2.9 x 0.7 x 2.2 cm foreign body of the upper esophageal sphincter correlates with the patient's hi story of ingested chicken bone. Mild associated esophageal wall thickening without evidence of perfor ation or fluid collection. 2. Nonspecific mild mediastinal adenopathy. 3. Cardiomegaly with pulmonary edema, trace pleural effusions with dependent bibasilar opacities sugg estive of atelectasis. ACT 112: Negative or not required by law. Electronically signed by: Ben Acevedo M.D. 09/17/2021 6:45 AM
[2021-09-17] MEDS ORDERED: XOPENEX/ATROVENT 1.25mg/0.5MG NEB COMBO NEB PRN (07:22)
[2021-09-17] MEDS ORDERED: LEVALBUTEROL 1.25MG/0.5ML NEB INH PRN (07:30)
[2021-09-17] MEDS ORDERED: IPRATROPIUM BROMIDE NEB SOLN 0.02% 2.5 ML VIAL INH PRN (07:30)
[2021-09-17] MEDS ORDERED: ONDANSETRON INJ 2 MG/ML 2 ML VIAL ONE (07:46)
[2021-09-17] MEDS ORDERED: SUCCINYLCHOLINE CHLORIDE 20 MG/ML 10 ML VIAL IV ONE (07:46)
[2021-09-17] MEDS ORDERED: LIDOCAINE 2% 2 ML VIAL/AMP(20MG/ML) INFIL ONE (07:46)
[2021-09-17] MEDS ORDERED: PROPOFOL IV EMULSION 10 MG/ML 20 ML VIAL IV ONE (07:46)
[2021-09-17] MEDS ORDERED: ROCURONIUM BROMIDE 10 MG/ML 5 ML VIAL IV ONE (07:47)
[2021-09-17] MEDS ORDERED: fentaNYL citrate 100 MCG/2 ML VIAL ONE (07:48)
--- NOTE | 2021-09-17 08:08 | Gastrointestinal Consultation ---
Date of Consultation September 17, 2021 Assessment & Plan (1) Food impaction of esophagus: Currently has no SOB with normal O2 sat. No sign of complete obstruction. Plan for EGD today. Patient was explained in detail regarding risks, benefits, limitations and alternatives of the above endoscopic procedure. Risks of intravenous sedation used for procedure were also explained. Risks include, but not limited to perforation, bleeding, infection, respiratory distress, cardiac arrest and . Patient is also aware about the possibility of missed lesion. Patient's questions were answered. The patient verbalized understanding the information and agreed to undergo the procedure. 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 She had chicken breast for dinner and she choked on a piece of chicken. Heimlich maneuver was performed by family without expulsion of the bolus. Patient was hypoxic initially but this resolved now. Initial CXR showed possible foreign body in the airway but CT scan neck showed no foreign bodies. Direct visualization using bronchoscope was done by ED physician and no foreign bodies seen in her throat or around vocal cords. Patient was admitted for persistent sensation of food impaction. Later her CT scan of the neck was updated to indicated food bolus in her upper esophagus. Allergies Allergy/AdvReac Type Severity Reaction Status Date / Time vancomycin Allergy Severe ANAPHYLAXIS Verified 09/16/21 20:23 adhesive Allergy Intermediate RED AND Verified 09/16/21 20:23 ITCHY SKIN prednisone AdvReac Intermediate INCREASED Verified 09/16/21 20:23 HER RECTAL BLEEDING Penicillins AdvReac Unknown CAN'T Verified 09/16/21 20:23 REMEMBER Home Medications Medication Instructions Recorded Confirmed Type aspirin 81 mg tablet,delayed 81 mg PO DAILY 03/30/20 09/16/21 History release atorvastatin 10 mg tablet 10 mg PO HS 03/30/20 09/16/21 History furosemide 20 mg tablet See Rx Instructions .ROUTE .COMPLEX 03/30/20 09/16/21 History gabapentin 300 mg capsule See Rx Instructions .ROUTE .COMPLEX 03/30/20 09/16/21 History losartan 25 mg tablet 25 mg PO DAILY 03/30/20 09/16/21 History metformin 500 mg tablet 500 mg PO BIDM 03/30/20 09/16/21 History warfarin 5 mg tablet See Rx Instructions .ROUTE .COMPLEX 03/30/20 09/16/21 History acetaminophen 500 mg tablet 1,000 mg PO Q6H PRN 09/16/21 09/16/21 History (Tylenol Extra Strength) albuterol sulfate 90 mcg/actuation 2 puff INHALATION Q4H PRN 09/16/21 09/16/21 History aerosol inhaler ferrous sulfate 325 mg (65 mg 325 mg PO BID 09/16/21 09/16/21 History iron) tablet,delayed release lorazepam 1 mg tablet 1 mg PO HS 09/16/21 09/16/21 History pantoprazole 40 mg tablet,delayed 40 mg PO DAILYBB 09/16/21 09/16/21 History release (Protonix) vit C 250 mg-vit E 90 mg-zinc 40 2 tab PO DAILY 09/16/21 09/16/21 History mg-copper 1 [id number] capsule (PreserVision AREDS-2) Patient History Medical History (Updated 09/17/21 @ 08:13 by Carleen Toth MD) COPD with asthma Diabetic neuropathy DM type 2 (diabetes mellitus, type 2) History of DVT (deep vein thrombosis) History of TIA (transient ischemic attack) History of uterine cancer Hyperlipidemia Hypertension detention current use of anticoagulant Surgical History History of back surgery History of cataract surgery History of cholecystectomy History of hysterectomy History of total left knee replacement History of total right knee replacement History of tubal ligation Family History Mother Heart disease Social History Smoking Status: Never smoker Tobacco Type: Cigarettes Hx Alcohol Use: No Hx Substance Use: No Preferred Language: Spanish Communication Ability: Effective Communication Ability Comment: hearing deficit Credit Front Office Developer Required: No Beliefs That Will Affect Care: None marital status: / Current Living Situation: Family current occupational status: retired Other Information That Helps Us Care for You: No Feels Safe at Home: Yes Assistive Devices: Cane Review of Systems Constitutional: no fever, no chills, no fatigue and no weight loss Eyes: no eye pain and no worsening vision Ear, Nose, Mouth, Throat: no tinnitus, no dizziness, no nasal discharge and no epistaxis Respiratory: no cough, no dyspnea, no dyspnea on exertion and no wheezing Cardiovascular: no chest pain, no orthopnea, no palpitations and no edema Gastrointestinal: as per Subjective / HPI Genitourinary: no dysuria, no urinary frequency, no urinary incontinence and no hematuria Musculoskeletal: no stiffness and no myalgia Neurologic: no localized weakness, no paralysis, no tremor(s) and no headache(s) Endocrine: no polydipsia and no polyuria Hematologic / Lymphatic: no easy bleeding and no night sweats Physical Exam Constitutional: + well hydrated, cooperative and comfortable Eyes: PERRL, conjunctivae normal, anicteric sclerae ENMT: external ear and nose normal, oropharynx normal Neck: normal visual inspection and trachea midline Respiratory: normal respiratory effort, lungs clear to auscultation Auscultation: no wheezes Cardiovascular: RRR, no murmur, no edema Gastrointestinal (Abdomen): normal bowel sounds, soft, nontender, no hepatosplenomegaly Musculoskeletal: no cyanosis or clubbing, extremities motor strength 5/5 Skin: no rashes, warm and dry Neurologic: awake; no focal motor deficits Motor/Sensory: no tremor Results & Data ([facility]) Vital Signs (Past 12 Hours) Vital Signs Temp Pulse Pulse Resp BP BP Pulse Ox 09/17/21 04:00 36.6 C 57 L 16 190/85 H 96 09/17/21 01:32 EDT 66 18 96 09/17/21 01:16 EDT 70 16 183/106 H 98 09/17/21 00:30 87 24 09/17/21 00:00 74 19 96 09/16/21 23:30 72 22 96 09/16/21 23:00 84 24 180/83 H 96 09/16/21 22:30 75 75 25 H 168/73 H 96 09/16/21 22:00 80 27 H 94 09/16/21 21:30 90 28 H 178/80 H 93 Laboratory Results Laboratory Results - last 24 hr 09/16/21 09/16/21 09/16/21 19:35 19:35 19:35 WBC 5.76 RBC 4.59 Hgb 13.5 Hct 41.6 MCV 90.6 MCH 29.4 MCHC 32.5 RDW Std Deviation 50.9 H RDW Coeff of Ata 15.4 H Plt Count 173 MPV 10.2 Immature Gran % (Auto) 0.2 Neut % (Auto) 67.6 Lymph % (Auto) 16.8 [place] % (Auto) 12.8 Eos % (Auto) 2.3 Baso % (Auto) 0.3 Neut # (Auto) 3.89 Lymph # (Auto) 0.97 L [place] # (Auto) 0.74 H Eos # (Auto) 0.13 Baso # (Auto) 0.02 Immature Gran # (Auto) 0.01 PT 21.7 H INR 2.3 H APTT 32.8 H PTT Ratio 1.2 VBG pH VBG pCO2 VBG pO2 VBG HCO3 VBG O2 Saturation VBG Base Excess Barometric Pressure Sodium 144 Potassium 4.1 Chloride 108 H Carbon Dioxide 29 Anion Gap 6.0 BUN 21 H Creatinine 1.11 Est Cr Clr Drug Dosing 43.7 Est GFR ( Amer) 52.1 Est GFR (Non-Af Amer) 44.9 BUN/Creatinine Ratio 18.6 Glucose 133 H POC Glucose Estimat Average Glucose Hemoglobin A1c Calcium 8.7 Magnesium 1.5 L Total Bilirubin 0.3 AST 20 ALT 24 Alkaline Phosphatase 99 Troponin I < 0.015 NT-Pro-B Natriuret Pep 1291 Total Protein 7.3 Albumin 3.5 Globulin 3.8 Albumin/Globulin Ratio 0.9 Lipase 113 COVID-19 Eval Order SARS-CoV-2 (PCR) 09/16/21 09/16/21 09/16/21 22:46 23:13 23:13 WBC RBC Hgb Hct MCV MCH MCHC RDW Std Deviation RDW Coeff of Ata Plt Count MPV Immature Gran % (Auto) Neut % (Auto) Lymph % (Auto) [place] % (Auto) Eos % (Auto) Baso % (Auto) Neut # (Auto) Lymph # (Auto) [place] # (Auto) Eos # (Auto) Baso # (Auto) Immature Gran # (Auto) PT INR APTT PTT Ratio VBG pH 7.38 VBG pCO2 51 H VBG pO2 66 VBG HCO3 29 VBG O2 Saturation 93.6 VBG Base Excess 2.9 Barometric Pressure 738.3 Sodium Potassium Chloride Carbon Dioxide Anion Gap BUN Creatinine Est Cr Clr Drug Dosing Est GFR ( Amer) Est GFR (Non-Af Amer) BUN/Creatinine Ratio Glucose POC Glucose Estimat Average Glucose Hemoglobin A1c Calcium Magnesium Total Bilirubin AST ALT Alkaline Phosphatase Troponin I NT-Pro-B Natriuret Pep Total Protein Albumin Globulin Albumin/Globulin Ratio Lipase COVID-19 Eval Order Covid19 at [facility] SARS-CoV-2 (PCR) NEGATIVE 09/17/21 09/17/21 09/17/21 01:47 EST 04:37 04:37 WBC RBC Hgb Hct MCV MCH MCHC RDW Std Deviation RDW Coeff of Ata Plt Count MPV Immature Gran % (Auto) Neut % (Auto) Lymph % (Auto) [place] % (Auto) Eos % (Auto) Baso % (Auto) Neut # (Auto) Lymph # (Auto) [place] # (Auto) Eos # (Auto) Baso # (Auto) Immature Gran # (Auto) PT INR APTT PTT Ratio VBG pH VBG pCO2 VBG pO2 VBG HCO3 VBG O2 Saturation VBG Base Excess Barometric Pressure Sodium 139 Potassium 3.9 Chloride 106 Carbon Dioxide 29 Anion Gap 4.0 BUN 19 H Creatinine 1.15 Est Cr Clr Drug Dosing 42.2 Est GFR ( Amer) 49.9 Est GFR (Non-Af Amer) 43.0 BUN/Creatinine Ratio 16.7 Glucose 239 H POC Glucose 224 H Estimat Average Glucose Pending Hemoglobin A1c Pending Calcium 8.7 Magnesium 2.2 Total Bilirubin AST ALT Alkaline Phosphatase Troponin I NT-Pro-B Natriuret Pep Total Protein Albumin Globulin Albumin/Globulin Ratio Lipase COVID-19 Eval Order SARS-CoV-2 (PCR) 09/17/21 09/17/21 09/17/21 04:37 04:37 07:31 WBC 4.38 L RBC 4.46 Hgb 13.2 Hct 41.2 MCV 92.4 MCH 29.6 MCHC 32.0 RDW Std Deviation 51.9 H RDW Coeff of Ata 15.4 H Plt Count 151 MPV 10.5 H Immature Gran % (Auto) 0.2 Neut % (Auto) 87.3 Lymph % (Auto) 10.5 [place] % (Auto) 1.8 Eos % (Auto) 0.0 Baso % (Auto) 0.2 Neut # (Auto) 3.82 Lymph # (Auto) 0.46 L [place] # (Auto) 0.08 L Eos # (Auto) 0.00 Baso # (Auto) 0.01 Immature Gran # (Auto) 0.01 PT 20.7 H INR 2.2 H APTT PTT Ratio VBG pH VBG pCO2 VBG pO2 VBG HCO3 VBG O2 Saturation VBG Base Excess Barometric Pressure Sodium Potassium Chloride Carbon Dioxide Anion Gap BUN Creatinine Est Cr Clr Drug Dosing Est GFR ( Amer) Est GFR (Non-Af Amer) BUN/Creatinine Ratio Glucose POC Glucose 225 H Estimat Average Glucose Hemoglobin A1c Calcium Magnesium Total Bilirubin AST ALT Alkaline Phosphatase Troponin I NT-Pro-B Natriuret Pep Total Protein Albumin Globulin Albumin/Globulin Ratio Lipase COVID-19 Eval Order SARS-CoV-2 (PCR)
[2021-09-17] MEDS: GABAPENTIN 300 MG CAP PO SCH ×2 (08:14→13:24)
[2021-09-17] MEDS: LOSARTAN POTASSIUM 50 MG TAB PO SCH (08:14)
[2021-09-17] MEDS: ASPIRIN 81 MG ECTAB PO SCH (08:14)
[2021-09-17] MEDS: FERROUS SULFATE 325 MG TAB PO SCH ×2 (08:14→20:07)
[2021-09-17] MEDS: METOPROLOL TARTRATE 25 MG TAB PO SCH ×2 (08:15→20:12)
[2021-09-17] MEDS: CEROVITE ADV FORMULA TAB PO SCH (08:15)
[2021-09-17] MEDS ORDERED: ALBUT/IPRATROP 3MG/0.5MG NEB 3 ML VIAL ONE (08:50)
--- NOTE | 2021-09-17 08:51 | Anesthesiology Consultation ---
Date of Service September 17, 2021 Assessment & Plan (1) Encounter for pre-operative examination: History Surgery Operation Date: 09/17/21 08:00 Proposed Procedures p Esophagogastroduodenoscopy - Carleen Toth MD Height/Weight Height: 5 ft 2 in Weight: 115 kg Allergies Allergy/AdvReac Type Severity Reaction Status Date / Time vancomycin Allergy Severe ANAPHYLAXIS Verified 09/16/21 20:23 adhesive Allergy Intermediate RED AND Verified 09/16/21 20:23 ITCHY SKIN prednisone AdvReac Intermediate INCREASED Verified 09/16/21 20:23 HER RECTAL BLEEDING Penicillins AdvReac Unknown CAN'T Verified 09/16/21 20:23 REMEMBER Medications Home Medications Medication Instructions Recorded Confirmed Last Taken aspirin 81 mg tablet,delayed 81 mg PO DAILY 03/30/20 09/16/21 09/16/21 release atorvastatin 10 mg tablet 10 mg PO HS 03/30/20 09/16/21 09/15/21 furosemide 20 mg tablet See Rx Instructions .ROUTE .COMPLEX 03/30/20 09/16/21 09/16/21 40 MG gabapentin 300 mg capsule See Rx Instructions .ROUTE .COMPLEX 03/30/20 09/16/21 09/16/21 14:00 losartan 25 mg tablet 25 mg PO DAILY 03/30/20 09/16/21 09/16/21 metformin 500 mg tablet 500 mg PO BIDM 03/30/20 09/16/21 09/16/21 warfarin 5 mg tablet See Rx Instructions .ROUTE .COMPLEX 03/30/20 09/16/21 09/16/21 acetaminophen 500 mg tablet 1,000 mg PO Q6H PRN 09/16/21 09/16/21 Unknown (Tylenol Extra Strength) albuterol sulfate 90 mcg/actuation 2 puff INHALATION Q4H PRN 09/16/21 09/16/21 Unknown aerosol inhaler ferrous sulfate 325 mg (65 mg 325 mg PO BID 09/16/21 09/16/21 09/16/21 08:00 iron) tablet,delayed release lorazepam 1 mg tablet 1 mg PO HS 09/16/21 09/16/21 09/15/21 pantoprazole 40 mg tablet,delayed 40 mg PO DAILYBB 09/16/21 09/16/21 09/16/21 release (Protonix) vit C 250 mg-vit E 90 mg-zinc 40 2 tab PO DAILY 09/16/21 09/16/21 09/16/21 mg-copper 1 [id number] capsule (PreserVision AREDS-2) Active Medications Generic Name Dose Route Start Last Admin Trade Name Ankur PRN Reason Stop Dose Admin Aspirin 81 mg 09/17/21 09:00 09/17/21 08:14 Aspirin 81 Mg Ectab PO 10/17/21 08:59 Not Given DAILY MARIANELA Ferrous Sulfate 325 mg 09/17/21 09:00 09/17/21 08:14 Ferrous Sulfate 325 Mg Tab PO 10/17/21 08:59 Not Given BID MARIANELA Gabapentin 300 mg 09/17/21 08:00 09/17/21 08:14 Gabapentin 300 Mg Cap PO 10/17/21 07:59 Not Given BID@[id number] MARIANELA Insulin Aspart 0 units 09/17/21 01:30 EST 09/17/21 02:02 Insulin Aspart 100 Units/Ml 3 Ml Pen SC 10/17/21 01:29 4 units ACHS MARIANELA Administration Losartan Potassium 50 mg 09/17/21 09:00 09/17/21 08:14 Losartan Potassium 50 Mg Tab PO 10/17/21 08:59 Not Given DAILY MARIANELA Metoprolol Tartrate 12.5 mg 09/17/21 09:00 09/17/21 08:15 Metoprolol Tartrate 25 Mg Tab PO 10/17/21 08:59 Not Given BID MARIANELA Multivitamins/Minerals 1 tab 09/17/21 09:00 09/17/21 08:15 Cerovite Adv Formula Tab PO 10/17/21 08:59 Not Given DAILY MARIANELA Pantoprazole Sodium 40 mg 09/17/21 06:30 09/17/21 05:20 Pantoprazole 40 Mg Tab PO 10/17/21 06:29 Not Given DAILYBB MARIANELA NPO Date Last Intake of Fluids: 09/17/21 Time Last Intake of Fluids: 02:00 Date Last Intake of Solids: 09/16/21 Time Last Intake of Solids: 18:00 Past Medical History Medical History (Updated 09/17/21 @ 08:51 by Zenaida Solis MD) COPD with asthma Diabetic neuropathy DM type 2 (diabetes mellitus, type 2) History of DVT (deep vein thrombosis) History of TIA (transient ischemic attack) History of uterine cancer Hyperlipidemia Hypertension skilled nursing current use of anticoagulant new onset atrial fibrillation aspiration Exercise / Class Metabolic Activity IV < 2 Limit ADL/Bedbound (uses a walker) Past Family History Family History Mother Heart disease Past Surgical History Surgical History History of back surgery History of cataract surgery History of cholecystectomy History of hysterectomy History of total left knee replacement History of total right knee replacement History of tubal ligation Social History Smoking Status: Never smoker Hx Alcohol Use: No Hx Substance Use: No Physical Exam Vital Signs Last Vital Signs Temp 36.6 C 09/17/21 04:00 Pulse 57 L 09/17/21 04:00 Resp 16 09/17/21 04:00 BP 190/85 H 09/17/21 04:00 Pulse Ox 96 09/17/21 04:00 Testing Laboratory Results 09/17/21 04:37 09/17/21 04:37 PT 20.7 Seconds (9.0-12.0) H 09/17/21 04:37 INR 2.2 (0.9-1.1) H 09/17/21 04:37 APTT 32.8 Seconds (21.0-31.0) H 09/16/21 19:35 09/17/21 09/17/21 07:31 01:47 EST POC Glucose 225 H 224 H Electrocardiogram Date: 09/16/21 Atrial fibrillation with premature ventricular or aberrantly conducted complexes Low voltage QRS Cannot rule out Anterior infarct (cited on or before 16-SEP-2021) Abnormal ECG When compared with ECG of 30-MAR-2020 12:57, Significant changes have occurred Chest X-Ray Date: 09/16/21 IMPRESSION: 1. Linear 1.3 cm radiodensity of the right neck possibly a foreign body within the airway. 2. Cardiomegaly with pulmonary vascular congestion. 3. Trace pleural effusions.
[2021-09-17] MEDS ORDERED: ATROPINE SULFATE 0.1 MG/ML 10ML SYR IV PRN ×2 (08:54→10:31)
[2021-09-17] MEDS ORDERED: ePHEDrine sulfate 50 MG/ML AMP IV PRN ×2 (08:54→10:31)
[2021-09-17] MEDS ORDERED: fentaNYL citrate 100 MCG/2 ML VIAL IV PRN (08:54)
[2021-09-17] MEDS ORDERED: ONDANSETRON INJ 2 MG/ML 2 ML VIAL IV PRN (08:54)
[2021-09-17] MEDS ORDERED: LOSARTAN POTASSIUM 25 MG TAB PO SCH (09:00)
[2021-09-17] MEDS ORDERED: INSULIN GLARGINE SOLOSTAR 100 UNITS/ML 3 ML PEN SC SCH (09:00)
[2021-09-17] MEDS ORDERED: LABETALOL HCL IV 5 MG/ML 20ML IV ONE (09:24)
--- NOTE | 2021-09-17 09:24 | Operative Report ---
Post Operative Report Pre & Post Diagnosis Operation Date: 09/17/21 08:00 Pre-Op Diagnosis: Food impaction of esophagus Post-Op Diagnosis: Food impaction of esophagus I identified the patient and participated in the time-out.: Yes Procedure Operation Date: 09/17/21 08:00 Actual Procedures p Esophagogastroduodenoscopy(Not Applicable) - Carleen Toth MD Surgeon Carleen Toth MD Field Secretary None Estimated Blood Loss 0 Findings See Below (Impacted food at the UES, removed.) Specimens None Description of Procedure EGD I attest to the content of the Intraoperative Record and any orders documented therein. Any exceptions are noted below.
--- NOTE | 2021-09-17 09:33 | GI REPORT ---
Patient Name: Keila Vital Procedure Date: 09/17/2021 7:58 AM Date of : 1935 Admit Type: Inpatient Age: 85 Gender: Female Attending MD: Carleen Toth MD Procedure: Upper GI endoscopy Providers: Carleen Toth MD Referring MD: Mustapha Sawant Md Indications: Dysphagia, Foreign body in the esophagus Medicines: General Anesthesia Complications: No immediate complications. Estimated Blood Loss: Estimated blood loss: none. Procedure: Pre-Anesthesia Assessment: - Prior to the procedure, a History and Physical was performed, and patient medications, allergies and sensitivities were reviewed. The patient's tolerance of previous anesthesia was reviewed. - The risks and benefits of the procedure and the sedation options and risks were discussed with the patient. All questions were answered and informed consent was obtained. - Patient identification and proposed procedure were verified prior to the procedure by the physician and the nurse. The procedure was verified in the procedure room. - Pre-procedure physical examination revealed no contraindications to sedation. After obtaining informed consent, the endoscope was passed under direct vision. Throughout the procedure, the patient's blood pressure, pulse, and oxygen saturations were monitored continuously. The Endoscope was introduced through the mouth, and advanced to the second part of duodenum. The upper GI endoscopy was accomplished without difficulty. The patient tolerated the procedure well. Findings: Impacted food bolus was found at the UES. Removal was accomplished by gently pushing the bolus down to the stmach using an endocap attached to the scope. The examined esophagus was normal otherwise. The entire examined stomach was normal. The duodenal bulb and second portion of the duodenum were normal. Impression: - Impacted food bolus was found in the upper esophagus. Removal was successful. - Normal stomach. - Normal duodenal bulb and second portion of the duodenum. Recommendation: - [facility]. - Clear liquid diet for 1 day, then advance as tolerated to full liquid diet tomorrow then soft diet afterwards. - Resume Coumadin (warfarin) at prior dose in 3 days. - Recall GI if needed. Carleen Toth MD 09/17/2021 9:32:35 AM This report has been signed electronically. Note Initiated On: 09/17/2021 7:58 AM Number of Addenda: 0 I attest to the content of the Intraoperative Record and orders documented therein, exceptions below {[id number]}
--- NOTE | 2021-09-17 10:30 | Anesthesiology Progress Note ---
Date of Service September 17, 2021 Anesthesia Post Procedure Vital Signs Vital Signs: Temp Pulse Pulse Pulse Resp BP BP 09/17/21 09:55 36.4 C L 78 16 134/52 L 09/17/21 09:45 79 18 138/60 09/17/21 09:35 36.2 C L 71 12 159/65 H 09/17/21 04:00 36.6 C 57 L 16 190/85 H 09/17/21 01:32 EDT 66 18 09/17/21 01:16 EDT 70 16 183/106 H 09/17/21 00:30 87 24 09/17/21 00:00 74 19 09/16/21 23:30 72 22 09/16/21 23:00 84 24 180/83 H 09/16/21 22:30 75 75 25 H 168/73 H 09/16/21 22:00 80 27 H 09/16/21 21:30 90 28 H 178/80 H 09/16/21 21:00 83 29 H 184/99 H 09/16/21 20:40 190/73 H 09/16/21 20:00 94 H 33 H 09/16/21 19:30 82 18 09/16/21 19:12 93 H 22 09/16/21 19:10 37.0 C 81 16 198/89 H Pulse Ox 09/17/21 09:55 94 09/17/21 09:45 94 09/17/21 09:35 95 09/17/21 04:00 96 09/17/21 01:32 EDT 96 09/17/21 01:16 EDT 98 09/17/21 00:30 09/17/21 00:00 96 09/16/21 23:30 96 09/16/21 23:00 96 09/16/21 22:30 96 09/16/21 22:00 94 09/16/21 21:30 93 09/16/21 21:00 93 09/16/21 20:40 09/16/21 20:00 09/16/21 19:30 96 09/16/21 19:12 92 09/16/21 19:10 94 Pain Intensity Throat: Pain Intensity: 6 Transfer of Care Handoff Completed per policy Notes Mental Status: alert / awake / arousable and participated in evaluation Patient Amnestic to Procedure: Yes Nausea / Vomiting: adequately controlled Pain: adequately controlled Airway Patency, RR, SpO2: stable & adequate BP & HR: stable & adequate Hydration State: stable & adequate Anesthetic Complications: no major complications apparent and Pt Satisfied with anesthetic care
--- NOTE | 2021-09-17 11:12 | Electrocardiogram Report ---
Test Reason : Blood Pressure : / mmHG Vent. Rate : 091 BPM Atrial Rate : 097 BPM P-R Int : 000 ms QRS Dur : 070 ms QT Int : 362 ms P-R-T Axes : 000 033 -42 degrees QTc Int : 445 ms Poor data quality, interpretation may be adversely affected Atrial fibrillation with premature ventricular or aberrantly conducted complexes Low voltage QRS Cannot rule out Anterior infarct (cited on or before 16-SEP-2021) Abnormal ECG When compared with ECG of 30-MAR-2020 12:57, Significant changes have occurred Confirmed by Germán Shea ([id number]) on 09/17/2021 11:12:01 AM Referred By: REFERRED SELF Confirmed By:Germán Shea
--- NOTE | 2021-09-17 13:24 | Cardiology Consultation ---
Date of Consultation September 17, 2021 Assessment & Plan (1) Paroxysmal atrial fibrillation: (2) Food impaction of esophagus: (3) Hypoxia: (4) History of pulmonary embolism: (5) Aspiration into airway: (6) Pulmonary HTN: (7) Aortic stenosis, mild: 85-year-old female presenting with choking episode and aspiration. X-ray demonstrating pulmonary vascular congestion. Patient treated with 1 dose of intravenous Lasix. EGD performed with removal of impacted food bolus. Incidentally, atrial fibrillation with controlled ventricular response, unknown duration, seen on telemetry. She is asymptomatic in regard to her atrial fibrillation. Appropriately anticoagulated with Coumadin due to history of pulmonary embolus. I would not add AV zulma blocking agents at this time. Heart rate is controlled. Monitor respiratory status, fluid balance, and GFR. Continue outpatient dosing of Lasix, 20 mg, 3 days/week. Consider additional doses of IV diuretic therapy as hospital course progresses. Thank you for allow me to participate in the care of your patient. History of Present Illness Reason for Consultation: Atrial fibrillation Requesting Physician: Dr. Sawant Attending Physician: Mustapha Sawant MD History of Present Illness 85-year-old female presented to the emergency department secondary to shortness of breath. Eating dinner last night when she began choking. Heimlich maneuver was attempted by family members however unsuccessful. Upper endoscopy performed this morning revealing a impacted food bolus. Successfully removed. Remainder of imaging reports normal stomach and duodenum. Incidentally, atrial fibrillation with controlled ventricular response was noted on telemetry. Cardiology consultation was requested for further evaluation and treatment. Patient seen and examined the bedside. Resting comfortably. Denies chest discomfort, shortness of breath, or palpitations. Unaware of atrial fibrillation. Denies any history of dysrhythmia. Chronically anticoagulated due to remote history of pulmonary embolus. Denies personal history of coronary disease, congestive heart failure, rheumatic fever as a child, or CVA. There is a chart history of TIA documented. Patient reports longstanding history of lower extremity edema and neuropathy. Taking Lasix 3 days/week at home. Allergies Allergy/AdvReac Type Severity Reaction Status Date / Time vancomycin Allergy Severe ANAPHYLAXIS Verified 09/16/21 20:23 adhesive Allergy Intermediate RED AND Verified 09/16/21 20:23 ITCHY SKIN prednisone AdvReac Intermediate INCREASED Verified 09/16/21 20:23 HER RECTAL BLEEDING Penicillins AdvReac Unknown CAN'T Verified 09/16/21 20:23 REMEMBER Home Medications Medication Instructions Recorded Confirmed Type aspirin 81 mg tablet,delayed 81 mg PO DAILY 03/30/20 09/16/21 History release atorvastatin 10 mg tablet 10 mg PO HS 03/30/20 09/16/21 History furosemide 20 mg tablet See Rx Instructions .ROUTE .COMPLEX 03/30/20 09/16/21 History gabapentin 300 mg capsule See Rx Instructions .ROUTE .COMPLEX 03/30/20 09/16/21 History losartan 25 mg tablet 25 mg PO DAILY 03/30/20 09/16/21 History metformin 500 mg tablet 500 mg PO BIDM 03/30/20 09/16/21 History warfarin 5 mg tablet See Rx Instructions .ROUTE .COMPLEX 03/30/20 09/16/21 History acetaminophen 500 mg tablet 1,000 mg PO Q6H PRN 09/16/21 09/16/21 History (Tylenol Extra Strength) albuterol sulfate 90 mcg/actuation 2 puff INHALATION Q4H PRN 09/16/21 09/16/21 History aerosol inhaler ferrous sulfate 325 mg (65 mg 325 mg PO BID 09/16/21 09/16/21 History iron) tablet,delayed release lorazepam 1 mg tablet 1 mg PO HS 09/16/21 09/16/21 History pantoprazole 40 mg tablet,delayed 40 mg PO DAILYBB 09/16/21 09/16/21 History release (Protonix) vit C 250 mg-vit E 90 mg-zinc 40 2 tab PO DAILY 09/16/21 09/16/21 History mg-copper 1 [id number] capsule (PreserVision AREDS-2) Patient History Medical History (Updated 09/17/21 @ 13:35 by Brian Dickerson DO) COPD with asthma Diabetic neuropathy DM type 2 (diabetes mellitus, type 2) History of DVT (deep vein thrombosis) History of TIA (transient ischemic attack) History of uterine cancer Hyperlipidemia 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 Surgical History History of back surgery History of cataract surgery History of cholecystectomy History of hysterectomy History of total left knee replacement History of total right knee replacement History of tubal ligation Family History Mother Heart disease Social History Smoking Status: Never smoker Tobacco Type: Cigarettes Hx Alcohol Use: No Hx Substance Use: No Preferred Language: Burkinan Communication Ability: Effective Communication Ability Comment: hearing deficit Radar Tester Required: No Beliefs That Will Affect Care: None marital status: / Current Living Situation: Family current occupational status: retired Other Information That Helps Us Care for You: No Feels Safe at Home: Yes Assistive Devices: Denture - Upper, Denture - Lower, Glasses and Oxygen - Continuous Review of Systems Review of Systems: All systems reviewed & are unremarkable except as noted in Subjective Physical Exam Constitutional: well developed and well nourished; no acute distress Respiratory: no respiratory distress, no labored breathing and no retractions Auscultation: + diminished lung sounds (Bases bilateral) and + crackles (Right base); no rhonchi and no wheezes Cardiovascular: Rate/Rhythm: + irregularly irregular Heart Sounds: normal S1, normal S2 and + murmur (2/6 medium pitched, mid peaking systolic ejection murmur); no cardiac rub Vessels: no JVD and no carotid bruit Extremities: no edema Gastrointestinal (Abdomen): Inspection/Auscultation: abdomen normal to inspection and normal bowel sounds; abdomen not distended and no abdominal edema Percussion/Palpation: abdomen soft; abdomen nontender, no guarding and abdomen not rigid Neurologic: CN's II-XI intact bilaterally and moves all extremities; no focal motor deficits Psychiatric: A+Ox3, euthymic affect Results & Data ([facility]) Vital Signs (Past 12 Hours) Vital Signs Temp Pulse Pulse Resp BP Pulse Ox 09/17/21 09:55 36.4 C L 78 16 134/52 L 94 09/17/21 09:45 79 18 138/60 94 09/17/21 09:35 36.2 C L 71 12 159/65 H 95 09/17/21 04:00 36.6 C 57 L 16 190/85 H 96
--- NOTE | 2021-09-17 15:58 | Hospitalist Progress Note ---
Date of Service September 17, 2021 Assessment & Plan (1) Paroxysmal atrial fibrillation: (2) Food impaction of esophagus: (3) Respiratory failure: Plan: 85-year-old lady with PMH of PE on Coumadin, TIA, COPD, HLD with statin intolerance, HTN, DM2 on oral meds, uterine cancer status post surgery, and past tobacco abuse presented 09/16 to our ED with some respiratory distress and feeling of choking after dinner [employer]. She complains of dry cough with sore throat/shortness of breath/wheezing which made her to visit ED. Last admission March 2020 for upper GI bleed when nonbleeding duodenal ulcer was noted on EGD. Patient is being managed for the following: #. Acute respiratory failure with hypoxia #. 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 Not on home oxygen. Unsuccessful expulsion of suspected food impaction after attempted Heimlich maneuver by family members. 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 Patient noted to be stridorous and O2 satsin 90s on room air upon arrival of EMS. Admitting soft tissue neck imaging suggestive of foreign body in the upper esophageal sphincter without evidence of perforation. Respiratory failure likely secondary to bronchospasm from possible aspiration event secondary to foreign body impaction at the esophagus along with pulmonary congestion on CXR Patient requiring 2 L nasal cannula oxygen, wean down as tolerated. 09/17 status post EGD scope and removal of impacted food found in upper esophagus; normal stomach and normal duodenal bulb and second portion of duodenum. GI consulted: Clear liquid for 1 day, advance as tolerated to full liquid tomorrow and then soft diet afterwards. Resume Coumadin at prior dose in 3 days. Speech and swallow to evaluate tomorrow, await recommendation. #. New Onset Afib #. H/o PE on Coumadin #. Pulmonary congestion New onset A. fib possibly from uncontrolled hypertension secondary to patient discomfort on the background of dilated atrium seen on echo. Admitting TSH WNL. Admitting EKG: A. fib with controlled ventricular response Admitting echo: EF 60 to 65%, mild concentric LVH, LA severely dilated with severe mitral annular calcification and mild MR/mild TR. Admitting CT chest suggestive of cardiomegaly with pulmonary edema; likely secondary to acute A. fib. Cardiology consulted: Continue prior Coumadin anticoagulation, no plan to add AV zulma blocking agents at this time as heart rate is controlled. Continue with outpatient dosing of Lasix for now. Consider additional doses of IV diuresis as inpatient. Plan to resume Coumadin 09/19 per GI recommendation. Continue monitoring pulmonary congestion clinically and as needed with imaging. Monitor PT/INR. INR therapeutic at presentation. Use Lasix as appropriate. #. Other chronic medical conditions: TIA/DM 2/HTN/HLD Continue with home aspirin/atorvastatin/losartan/hold Metformin, patient on sliding scale. DVT prophylaxis; SCDs, Coumadin on hold until 09/20. Full code Admission and Anticipated Discharge Date Admission Date: September 17, 2021 Subjective Patient was lying in bed, on 2 L by facemask, looked slightly restless and trying to get out of the bed. Since the room was small and patient is claustrophobic. No new acute events overnight. Patient is status post upper scope and removal of impacted food in the esophagus, patient feeling better. Patient denies headache/chills/chest pain/palpitation/other review of symptoms. Physical Exam Physical Exam: GENERAL: Alert and oriented x3. NAD, on 2 L O2 via facemask HEENT: No pallor, no icterus. Pupils equal, round and reactive to light. Oral mucosa moist. NECK: No JVD, no neck masses. HEART: S1 and S2 heard. Regular rate and rhythm. systolic murmur over aortic and pulmonic area, no gallop. RESPIRATORY SYSTEM: Normal AP diameter. No accessory muscle use. No wheezing, crackles diffuse and bilateral ABDOMEN: Soft, bowel sounds present, nontender, no distention. CENTRAL NERVOUS SYSTEM: Alert and oriented x3. No facial droop. Speech is clear. Obeys simple commands. Moves extremities. EXTREMITIES: Trace to 1+ BLE edema, no erythema seen. Results & Data Results & Data ([facility]) Vital Signs (Past 12 Hours) Vital Signs Temp Pulse Pulse Resp BP Pulse Ox 09/17/21 14:00 36.5 C 62 19 160/73 H 97 09/17/21 09:55 36.4 C L 78 16 134/52 L 94 09/17/21 09:45 79 18 138/60 94 09/17/21 09:35 36.2 C L 71 12 159/65 H 95 09/17/21 04:00 36.6 C 57 L 16 190/85 H 96
[2021-09-17] MEDS: ATORVASTATIN 10 MG TAB PO SCH (20:07)
[2021-09-17] MEDS: LORazepam 1 MG TAB PO SCH (20:07)
[2021-09-18] MEDS: PANTOprazole 40 MG TAB PO SCH (05:10)
[2021-09-18 05:22] LABS: Hematocrit (blood only) 40.4 % (37-47); Hemoglobin 12.4 g/dL (12.0-16.0); Mean Corpuscular Hgb Conc 30.7 g/dL (32-36); Mean Corpuscular Volume 94.4 fL (80-100); Mean Platelet Volume 10.4 fL (7.4-10.4); Platelet Count 148 K/uL (130-400); RDW Standard Deviation 54.7 fL (36.4-46.3); Red Blood Count 4.28 M/uL (4.2-5.4)
[2021-09-18 05:30] LABS: INR 2.2 (0.9-1.1); Prothrombin Time 20.9 Seconds (9.0-12.0)
[2021-09-18 05:47] LABS: BUN Creatinine Ratio 22.5 (10-20); Calcium 8.6 mg/dl (8.5-10.1); Creatinine Clr Calc Pharmacy 53.9 ml/min; Est GFR (African American) 67.1 ml/min; Est GFR (Non-African American) 57.9 ml/min; Magnesium 2.2 mg/dl (1.8-2.4); Phosphorus 3.3 mg/dl (2.5-4.9); Potassium 3.9 mmol/L (3.5-5.1)
[2021-09-18] MEDS ORDERED: FUROSEMIDE INJ 20 MG/2 ML VIAL IV ONE (07:13)
[2021-09-18 07:25] LABS: Estimated Average Glucose 154 mg/dl
[2021-09-18] MEDS: INSULIN ASPART 100 UNITS/ML 3 ML PEN SC SCH ×4 (08:02→19:45)
[2021-09-18] MEDS: FERROUS SULFATE 325 MG TAB PO SCH ×2 (08:28→19:45)
[2021-09-18] MEDS: ASPIRIN 81 MG ECTAB PO SCH (08:28)
[2021-09-18] MEDS: LOSARTAN POTASSIUM 50 MG TAB PO SCH (08:28)
[2021-09-18] MEDS: CEROVITE ADV FORMULA TAB PO SCH (08:28)
[2021-09-18] MEDS: GABAPENTIN 300 MG CAP PO SCH ×2 (08:28→15:05)
[2021-09-18] MEDS: METOPROLOL TARTRATE 25 MG TAB PO SCH (08:28)
[2021-09-18] MEDS: INSULIN GLARGINE SOLOSTAR 100 UNITS/ML 3 ML PEN SC SCH (08:29)
--- NOTE | 2021-09-18 11:37 | Cardiology Progress Note ---
Date of Service September 18, 2021 Assessment & Plan (1) Paroxysmal atrial fibrillation: (2) Food impaction of esophagus: (3) Hypoxia: (4) History of pulmonary embolism: (5) Aspiration into airway: (6) Pulmonary HTN: (7) Aortic stenosis, mild: Plan: 85-year-old female presenting with choking episode and aspiration. Incidental finding of atrial fibrillation with controlled ventricular response on admission. She remains in A. fib since admission. Agree with Lasix 20 mg today and attempt to optimize respiratory status. Otherwise, no overt signs of volume overload currently. Resume Lasix 20 mg, 3 days/week. Recommend restart warfarin if no contraindication, or procedures planned at this time. Blood pressure remains labile. Continue losartan which was titrated to 50 mg daily. Periods of slow ventricular response without symptoms noted overnight. No significant pauses. Hold beta-suraj therapy and continue to observe. No overt indication for pacemaker at this time. In regard to evidence of mild aortic stenosis, recommend repeat resting 2D transthoracic echocardiogram in 1 year. Thank you for allow me to participate in the care of your patient. Admission and Anticipated Discharge Date Admission Date: September 17, 2021 Subjective Patient seen and examined at the bedside. Received 20 mg IV Lasix this morning. Continues to require 2 L of supplemental oxygen. Denies chest pain or shortness of breath. Telemetry was atrial fibrillation with controlled ventricular response. Episodes of slow ventricular response without significant pauses recorded during sleep. Warfarin remains on hold. INR is 2.2 today. Review of Systems Review of Systems: All systems reviewed & are unremarkable except as noted in Subjective Physical Exam Constitutional: well developed and well nourished; no acute distress Respiratory: no respiratory distress, no labored breathing and no retractions Auscultation: + diminished lung sounds (Bases bilateral) and + crackles (Right base); no rhonchi and no wheezes Cardiovascular: Rate/Rhythm: + irregularly irregular Heart Sounds: normal S1, normal S2 and + murmur (2/6 medium pitched, mid peaking systolic ejection murmur); no cardiac rub Vessels: no JVD and no carotid bruit Extremities: no edema Gastrointestinal (Abdomen): Inspection/Auscultation: abdomen normal to inspection and normal bowel sounds; abdomen not distended and no abdominal edema Percussion/Palpation: abdomen soft; abdomen nontender, no guarding and abdomen not rigid Neurologic: CN's II-XI intact bilaterally and moves all extremities; no focal motor deficits Psychiatric: A+Ox3, euthymic affect Results & Data ([facility]) Vital Signs (Past 12 Hours) Vital Signs Temp Pulse Resp BP Pulse Ox 09/18/21 08:00 36.7 C 63 18 182/76 H 95 09/18/21 03:28 36.8 C 56 L 22 159/60 H 95 09/18/21 00:00 36.6 C 63 17 109/58 L 95
--- NOTE | 2021-09-18 12:16 | Fluoroscopy Report ---
FL video swallow CLINICAL HISTORY: Evaluate for aspiration, pt reports choughing on thins COMPARISON STUDY: No previous studies for comparison. FLUOROSCOPY TIME: 2.5 minutes. NUMBER OF IMAGES: 11 cine fluoroscopic swallowing sequences FINDINGS: The patient was given barium of varying consistencies and observed under fluoroscopy with c oncurrent tape recording. Examination is performed in conjunction with a member of the speech patholo gy department. The patient was given the following consistencies of barium: Thin, nectar, pure, mechanical soft and solid. There was no significant laryngeal penetration or aspiration with all substances tested. There was no pooling within the vallecula. There was no pooling within the puriform sinuses. IMPRESSION: No significant laryngeal penetration or aspiration identified. Please see report from speech pathology regarding additional findings recommendations. ACT 112: Negative or not required by law. Electronically signed by: Gurinder Chavez M.D. 09/18/2021 12:15 PM
--- NOTE | 2021-09-18 15:15 | Hospitalist Progress Note ---
Date of Service September 18, 2021 Assessment & Plan (1) Paroxysmal atrial fibrillation: (2) Food impaction of esophagus: (3) Respiratory failure: Plan: 85-year-old lady with PMH of PE on Coumadin, TIA, COPD, HLD with statin intolerance, HTN, DM2 on oral meds, uterine cancer status post surgery, and past tobacco abuse presented 09/16 to our ED with some respiratory distress and feeling of choking after dinner [employer]. She complains of dry cough with sore throat/shortness of breath/wheezing which made her to visit ED. Last admission March 2020 for upper GI bleed when nonbleeding duodenal ulcer was noted on EGD. Patient is being managed for the following: #. Acute respiratory failure with hypoxia #. Choking on food Patient had feeling of choking after dinner [employer]. Not on home oxygen. Unsuccessful expulsion of suspected food impaction after attempted Heimlich maneuver by family members. Patient admits to coughing with meals/water intake from time to time even before episode the night [employer]. Patient noted to be stridorous and O2 satsin 90s on room air upon arrival of EMS. Admitting soft tissue neck imaging suggestive of foreign body in the upper esophageal sphincter without evidence of perforation. Respiratory failure likely secondary to bronchospasm from possible aspiration event secondary to foreign body impaction at the esophagus along with pulmonary congestion on CXR Patient requiring 2 L nasal cannula oxygen, wean down as tolerated. 09/17 status post EGD scope and removal of impacted food found in upper esophagus; normal stomach and normal duodenal bulb and second portion of duodenum. GI consulted: Clear liquid for 1 day, advance as tolerated to full liquid tomorrow and then soft diet afterwards. Resume Coumadin at prior dose in 3 days from scope per GI. Speech eval 09/18 recs: Minced and moist diet until patient has her dentures and cramp less than for all meals; aspiration and GERD precautions; single bites/small sips/slow rate. Will advance diet to full liquid diet to soft as tolerated. Resume warfarin tomorrow. #. New Onset Afib #. H/o PE on Coumadin #. Pulmonary congestion New onset A. fib possibly from uncontrolled hypertension secondary to patient discomfort on the background of dilated atrium seen on echo. Admitting TSH WNL. Admitting EKG: A. fib with controlled ventricular response Admitting echo: EF 60 to 65%, mild concentric LVH, LA severely dilated with severe mitral annular calcification and mild MR/mild TR. Admitting CT chest suggestive of cardiomegaly with pulmonary edema; likely secondary to acute A. fib. Cardiology consulted: Continue prior Coumadin anticoagulation when able, beta- suraj held for periods of slow ventricular response (asymptomatic) overnight. Continue with outpatient dosing of Lasix for now. No overt indication for pacemaker at this time. Recommends 2D RUTH in 1 year for aortic stenosis. Will resume Coumadin tomorrow. Continue monitoring pulmonary congestion clinically and as needed with imaging. Monitor PT/INR. INR remains therapeutic. Use Lasix as appropriate. #. Other chronic medical conditions: TIA/DM 2/HTN/HLD Continue with home aspirin/atorvastatin/losartan/hold Metformin, patient on sliding scale. Beta-suraj held per cardiology. DVT prophylaxis; SCDs, Coumadin on hold, plan to resume tomorrow. Full code PT/OT DANIAL valencia to assist with DC planning. Admission and Anticipated Discharge Date Admission Date: September 17, 2021 Subjective Patient was seen and examined at bedside, patient was sitting up in chair, on 2 L oxygen by facemask, NAD, no new acute events overnight per patient. Patient is on clear liquid diet, got swallow eval in the morning, will advance her diet to full liquid as per GI recommendation and then to soft diet. Plan to resume her warfarin tomorrow per GI recommendation. There has been episodes of slow ventricular response with her significant pauses during the sleep. Patient denies headache/dizziness/chest pain/palpitation/other review of symptoms. Physical Exam Physical Exam: GENERAL: Alert and oriented x3. NAD, on 2 L O2 via facemask HEENT: No pallor, no icterus. Pupils equal, round and reactive to light. Oral mucosa moist. NECK: No JVD, no neck masses. HEART: S1 and S2 heard. Regular rate and rhythm. systolic murmur over aortic and pulmonic area, no gallop. RESPIRATORY SYSTEM: Normal AP diameter. No accessory muscle use. No wheezing, crackles diffuse and bilateral ABDOMEN: Soft, bowel sounds present, nontender, no distention. CENTRAL NERVOUS SYSTEM: Alert and oriented x3. No facial droop. Speech is clear. Obeys simple commands. Moves extremities. EXTREMITIES: 1+ BLE edema, no erythema seen. Results & Data Results & Data ([place]) Vital Signs (Past 12 Hours) Vital Signs Temp Pulse Resp BP Pulse Ox 09/18/21 08:00 36.7 C 63 18 182/76 H 95 09/18/21 03:28 36.8 C 56 L 22 159/60 H 95
[2021-09-18] MEDS: ATORVASTATIN 10 MG TAB PO SCH (19:44)
[2021-09-18] MEDS: LORazepam 1 MG TAB PO SCH (19:45)
[2021-09-19 05:40] LABS: INR 1.8 (0.9-1.1); Prothrombin Time 17.5 Seconds (9.0-12.0)
[2021-09-19 05:54] LABS: BUN Creatinine Ratio 20.3 (10-20); Calcium 8.4 mg/dl (8.5-10.1); Creatinine Clr Calc Pharmacy 55.2 ml/min; Est GFR (African American) 70.9 ml/min; Est GFR (Non-African American) 61.2 ml/min; Potassium 3.8 mmol/L (3.5-5.1)
[2021-09-19] MEDS: PANTOprazole 40 MG TAB PO SCH (06:34)
[2021-09-19] MEDS ORDERED: WARFARIN SOD 5 MG TAB PO SCH ×2 (07:30→16:00)
[2021-09-19] MEDS ORDERED: FUROSEMIDE 20 MG TAB PO SCH (07:30)
[2021-09-19] MEDS: INSULIN ASPART 100 UNITS/ML 3 ML PEN SC SCH ×2 (07:57→12:52)
[2021-09-19] MEDS: LOSARTAN POTASSIUM 50 MG TAB PO SCH (08:58)
[2021-09-19] MEDS: ASPIRIN 81 MG ECTAB PO SCH (08:58)
[2021-09-19] MEDS: GABAPENTIN 300 MG CAP PO SCH ×2 (08:58→12:53)
[2021-09-19] MEDS: FERROUS SULFATE 325 MG TAB PO SCH (08:58)
[2021-09-19] MEDS: INSULIN GLARGINE SOLOSTAR 100 UNITS/ML 3 ML PEN SC SCH (08:59)
[2021-09-19] MEDS: CEROVITE ADV FORMULA TAB PO SCH (08:59)
[2021-09-19] MEDS ORDERED: FUROSEMIDE 40 MG TAB PO SCH (09:00)
--- NOTE | 2021-09-19 13:05 | Cardiology Progress Note ---
Date of Service September 19, 2021 Assessment & Plan (1) Paroxysmal atrial fibrillation: (2) Food impaction of esophagus: (3) History of pulmonary embolism: (4) Aspiration into airway: (5) Pulmonary HTN: (6) Aortic stenosis, mild: Plan: Continue oral anticoagulation with warfarin. Goal INR 2.0-3.0. Heart rate controlled. Patient may be discharged without beta-suraj therapy. Resume outpatient diuretic regimen. Repeat 2D echocardiogram in 12 months for reassessment of mild aortic valve stenosis. No further inpatient cardiac testing or intervention at this time. Cardiology will sign off. Routine outpatient cardiology follow-up in 1 month recommended. Admission and Anticipated Discharge Date Admission Date: September 17, 2021 Subjective Patient seen and examined the bedside. Denies chest pain or shortness of breath. No palpitations, lightheadedness, or dizziness. Telemetry reveals rate controlled atrial fibrillation with periods of slow ventricular response during sleep. Requesting discharge. Offers no concerns/complaints. Review of Systems Review of Systems: All systems reviewed & are unremarkable except as noted in Subjective Physical Exam Constitutional: well developed and well nourished; no acute distress Respiratory: no respiratory distress, no labored breathing and no retractions Auscultation: + diminished lung sounds (Bases bilateral) and + crackles (Right base); no rhonchi and no wheezes Cardiovascular: Rate/Rhythm: + irregularly irregular Heart Sounds: normal S1, normal S2 and + murmur (2/6 medium pitched, mid peaking systolic ejection murmur); no cardiac rub Vessels: no JVD and no carotid bruit Extremities: no edema Gastrointestinal (Abdomen): Inspection/Auscultation: abdomen normal to inspect ion and normal bowel sounds; abdomen not distended and no abdominal edema Percussion/Palpation: abdomen soft; abdomen nontender, no guarding and abdomen not rigid Neurologic: CN's II-XI intact bilaterally and moves all extremities; no focal motor deficits Psychiatric: A+Ox3, euthymic affect Results & Data ([facility]) Vital Signs (Past 12 Hours) Vital Signs Temp Pulse Resp BP Pulse Ox 09/19/21 07:52 37.3 C 76 16 148/67 H 95 09/19/21 04:50 37 C 62 22 114/45 L 97
--- NOTE | 2021-09-19 15:08 | Discharge Summary ---
Date of Service September 19, 2021 Admission HPI Per Admitting Provider History obtained from patient and records. Medical history significant for COPD, PE on Coumadin, hypertension, hyperlipidemia, statin intolerance as per records, TIA as per records, DM2 on oral medications, uterine cancer status post surgery, RLS, past tobacco abuse Last confinement March 2020 for UGIB. Nonbleeding duodenal ulcer noted on EGD. Patient discharged on PPI. Aspirin and Coumadin subsequently resumed. Patient was eating chicken breast for dinner last night when she felt like she choked on something. Dry cough symptoms with sore throat, shortness of breath and wheezing noted at home. Patient unsure about fluid retention symptoms. Chest pain from coughing. Patient admits to coughing with meals/water intake from time to time even before episode last night. Unsuccessful expulsion of suspected food impaction after attempted Heimlich maneuver by family members. Patient noted to be stridorous and O2 sats sats 90s on room air upon arrival of EMS. Patient given Solu-Medrol and neb treatment at the ER. Patient still with sore throat/foreign body sensation symptoms. Able to swallow her saliva. Patient noted to be in atrial fibrillation at the ER. No prior diagnosis as per patient/records. 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 Admission Exam Per Admitting Provider GENERAL: Slightly anxious and uncomfortable, no stridor, morbidly obese, no respiratory distress SKIN: Normal color, warm HEENT: [place] palpebral conjunctivae, no ptosis, moist buccal mucosa, nasal cannu la in place NECK : Supple, short neck, no tenderness CHEST : Decreased breath sounds, no tenderness HEART : Irregular, no obvious murmurs ABDOMEN: distention, nontender EXTREMITIES : Bilateral LE swelling, no LE tenderness, no other conspicuous deformities noted NEUROLOGIC : Coherent, no facial asymmetry, no other gross focality Principal Diagnosis New onset atrial fibrillation Acute hypoxic respiratory failure Per the backside of esophagitis History of pulmonary embolism on Coumadin. Discharge Exam GENERAL: Alert and oriented x3. NAD, on 2 L O2 via facemask HEENT: No pallor, no icterus. Pupils equal, round and reactive to light. Oral mucosa moist. NECK: No JVD, no neck masses. HEART: S1 and S2 heard. Regular rate and rhythm. systolic murmur over aortic and pulmonic area, no gallop. RESPIRATORY SYSTEM: Normal AP diameter. No accessory muscle use. No wheezing, bilateral crackles improved. ABDOMEN: Soft, bowel sounds present, nontender, no distention. CENTRAL NERVOUS SYSTEM: Alert and oriented x3. No facial droop. Speech is clear. Obeys simple commands. Moves extremities. EXTREMITIES: 1+ BLE edema, no erythema seen. Discharge Data Allergies Allergy/AdvReac Type Severity Reaction Status Date / Time vancomycin Allergy Severe ANAPHYLAXIS Verified 09/16/21 20:23 adhesive Allergy Intermediate RED AND Verified 09/16/21 20:23 ITCHY SKIN prednisone AdvReac Intermediate INCREASED Verified 09/16/21 20:23 HER RECTAL BLEEDING Penicillins AdvReac Unknown CAN'T Verified 09/16/21 20:23 REMEMBER Consultations 09/16/21 23:13 ED Decision to Admit Stat 09/17/21 00:21 Consult Cardiology Routine 09/17/21 01:18 Consult Gastroenterology Routine Procedures Performed Operation Date: 09/17/21 08:00 Actual Procedures p Esophagogastroduodenoscopy(Not Applicable) - Carleen Toth MD Ordered Studies 09/16/21 19:25 CT soft tissue neck w con Urgent 09/17/21 00:09 CT chest diagnostic wo con Urgent 09/18/21 12:37 Fluoro video [FL video swallow] Routine Hospital Course (1) Paroxysmal atrial fibrillation: (2) Food impaction of esophagus: (3) Respiratory failure: 85-year-old lady with PMH of PE on Coumadin, TIA, COPD, HLD with statin intolerance, HTN, DM2 on oral meds, uterine cancer status post surgery, and past tobacco abuse presented 09/16 to our ED with some respiratory distress and 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 She complains of dry cough with sore throat/shortness of breath/wheezing which made her to visit ED. Last admission March 2020 for upper GI bleed when nonbleeding duodenal ulcer was noted on EGD. Patient was managed for the following: #. Acute respiratory failure with hypoxia #. 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 Not on home oxygen. Unsuccessful expulsion of suspected food impaction after attempted Heimlich maneuver by family members. 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 Patient noted to be stridorous and O2 satsin 90s on room air upon arrival of EMS. Admitting soft tissue neck imaging suggestive of foreign body in the upper esophageal sphincter without evidence of perforation. Respiratory failure likely secondary to bronchospasm from possible aspiration event secondary to foreign body impaction at the esophagus along with pulmonary congestion on CXR Patient requiring 2 L nasal cannula oxygen, wean down as tolerated. 09/17 status post EGD scope and removal of impacted food found in upper esophagus; normal stomach and normal duodenal bulb and second portion of duodenum. GI consulted: removed impacted food from esophagus Speech eval 09/18 recs: Minced and moist diet until patient has her dentures and cramp less than for all meals; aspiration and GERD precautions; single bites/small sips/slow rate. Pt Tolerated diet advancement well. #. New Onset Afib #. H/o PE on Coumadin #. Pulmonary congestion New onset A. fib possibly from uncontrolled hypertension secondary to patient discomfort on the background of dilated atrium seen on echo. Admitting TSH WNL. Admitting EKG: A. fib with controlled ventricular response Admitting echo: EF 60 to 65%, mild concentric LVH, LA severely dilated with severe mitral annular calcification and mild MR/mild TR. Admitting CT chest suggestive of cardiomegaly with pulmonary edema; likely secondary to acute A. fib. Cardiology consulted: No beta suraj at discharge. c/w home coumadin and home lasix. Continue with outpatient dosing of Lasix for now. No overt indication for pacemaker at this time. Recommends 2D RUTH in 1 year for aortic stenosis. c/w home coumadin and home lasix. Pt instructed to monitor PT/INR in 3 days upon discharge. #. Other chronic medical conditions: TIA/DM 2/HTN/HLD Continued with home aspirin/atorvastatin/losartan/hold Metformin, patient on sliding scale. Full code Physical therapy prescription provided to the patient at the time discharge. Following instructions were communicated at the point of discharge: Follow-up with your primary care physician within a week time. You have been diagnosed with nail onset new onset atrial fibrillation this hospital admission, follow-up with cardiology Within a month time. Take medications as prescribed. Per speech and swallow evaluation you are recommended for soft, minced and moist diet recommended. Alternate solids and liquids. Elevate head of bed to at least 30 degrees all the time. Small frequent meals. Upright with meals and for next 30-minute after meals. Single bites/small sips/slow rate during meals. Follow-up with Coumadin clinic in 2 to 3 days and get blood work INR done for possible evaluation of any need for adjustment in Coumadin dose. Per cardiology, you will need repeat echocardiogram in 1 year for aortic stenosis. Total Time Total Time Spent Total Time Spent (In Minutes): 45 Discharge Plan Discharge Items Patient Disposition: Home - Self-Care Reason For Visit: RESP FAILURE, NEW ONSET AF Discharge Diagnosis: New onset atrial fibrillation Acute hypoxic respiratory failure Per the backside of esophagitis History of pulmonary embolism on Coumadin. Activity: Resume your previous activity Non-emergency contact: Primary Care Provider Call non-emergency contact if: you have any medication questions and your symptoms worsen Follow-up/Referrals: Duong Looney MD [Primary Care Provider] - (Date & Time 09/25/2021 11:20 AM Provider Duong Looney MD [facility] ) Diet: Carb Count or DM1 and Heart Healthy Addtl Attending Provider Instructions: Follow-up with your primary care physician within a week time. You have been diagnosed with nail onset new onset atrial fibrillation this hospital admission, follow-up with cardiology DrTony Within a month time. Take medications as prescribed. Per speech and swallow evaluation you are recommended for soft, minced and moist diet recommended. Alternate solids and liquids. Elevate head of bed to at least 30 degrees all the time. Small frequent meals. Upright with meals and for next 30-minute after meals. Single bites/small sips/slow rate during meals. Follow-up with Coumadin clinic in 2 to 3 days and get blood work INR done for possible evaluation of any need for adjustment in Coumadin dose. Per cardiology, you will need repeat echocardiogram in 1 year for aortic stenosis. Pending Studies at Discharge: No Stand-Alone Forms: My [place], Smoking Cessation Medications and DC Order Prescriptions: Continued atorvastatin 10 mg tablet 10 mg PO HS RF: 0 warfarin 5 mg tablet See Rx Instructions .ROUTE .COMPLEX RF: 0 losartan 25 mg tablet 25 mg PO DAILY RF: 0 gabapentin 300 mg capsule See Rx Instructions .ROUTE .COMPLEX RF: 0 furosemide 20 mg tablet See Rx Instructions .ROUTE .COMPLEX RF: 0 metformin 500 mg tablet 500 mg PO BIDM RF: 0 aspirin 81 mg Tablet,Delayed Release (Dr/Ec) 81 mg PO DAILY RF: 0 acetaminophen [Tylenol Extra Strength] 500 mg Tablet 1,000 mg PO Q6H PRN (Reason: Pain) RF: 0 lorazepam 1 mg Tablet 1 mg PO HS RF: 0 albuterol sulfate 90 mcg/actuation Hfa Aerosol Inhaler 2 puff INHALATION Q4H PRN (Reason: Wheezing) RF: 0 PreserVision AREDS-2 250-90-40-1 mg Capsule 2 tab PO DAILY RF: 0 pantoprazole [Protonix] 40 mg tablet,delayed release (DR/EC) 40 mg PO DAILYBB RF: 0 ferrous sulfate 325 mg (65 mg iron) tablet,delayed release (DR/EC) 325 mg PO BID RF: 0 Discharge Orders: Discharge Order (Routine); Ordered 09/19/21 Ordered By: Mustapha Lucio/Other Patient Handouts: A1C, Managing Type 2 Diabetes, Special Foot Care for Diabetes Admission Data Admit Date/Time: 09/17/21 00:14 Attending Provider: Mustapha Sawant Admit Provider: Hugh Alcantara Primary Care Provider: Duong Looney Other Providers: Hugh Alcantara ; Huey De Dios ; Jalen Pérez ; Masood Crook ; Brian Dickerson ; Gregg John ; Duong Paz ; Monica Soto ; Tameka Pickard ; Zulema Werner ; Jose Solano ; Carleen Toth Other Interventions: Discharge Summary Assessment (RN) Last Done: 09/19/21 14:11
[2021-09-20] MEDS ORDERED: FUROSEMIDE 20 MG TAB PO SCH (09:00)
[2021-09-21] MEDS ORDERED: WARFARIN SOD 7.5 MG TAB PO SCH (16:00)
== END 2021-09-19 14:44 | disposition home or self-care (01) | DRG 393 ==
LOC: ED 19:04 → EDINP 09-17 00:14 → 1E 09-17 01:16

== ENCOUNTER 2024-05-30 11:37 | Inpatient (IN) ==
--- OUTSIDE RECORDS SUMMARY | 2024-05-30 11:46 | External Medical Summary | Summary of Care ---
Author Name Unknown Organization [facility] Address [address] [place] [address] Phone [phone] Care Team Providers Care Pot Reliner Name Role Phone Duong Looney MD Primary Care Provider Reason for Visit * Reason Comments Outpatient Testing Encounter Details Date Type Department Care Team (Late st Contact Info) Description 05/26/2024 10:10 AM EDT Laboratory Laboratory, [address] [address] [address], Specimen Drop Off [address] [address] Radiation cystitis; Urinary frequency; Recurrent UTI Allergies Active Allergy Reactions Criticality Noted Date Comments Adhesive Tape 03/11/2003 redness Latex 01/18/2005 rash Lisinopril Cough Low 03/18/2014 Penicillins 07/14/1999 swelling Prednisone 04/20/2005 Pt says it makes her "bleed into her intestines" documented as of this encounter (statuses as of 05/26/2024) Medications Medication Sig Dispensed Refills Start Date End Date Status Blood Glucose Monitoring Suppl (Tidal Wave TechnologyTOUCH ULTRA 2) w/Device KITIndications:Type 2 diabetes mellitus with hemoglobin A1c goal of less than 8.0% ([facility]) Use as directed to test blood sugar twice daily E11.9 1 Kit 06/26/2017 Active Acetaminophen 500 MG Oral Tablet (TYLENOL) Take 2 Tablets by mouth every 6 hours as needed for Pain, Mild. 100 Tab 08/02/2020 Active PreserVision AREDS 2+Multi Vit Oral Capsule Take 2 Caps by mouth once for 1 dose. 60 Cap 01/31/2021 Active Loperamide HCl 2 MG Oral Capsule (Imodium) Take 1 Capsule by mouth as needed for Diarrhea. Active Albuterol Sulfate HFA 108 (90 Base) MCG/ACT Inhalation Aerosol SolutionIndications:A sthma with severity to be determined inhale 2 puffs by mouth and INTO THE LUNGS every 4 hours if needed for wheezing 18 g 5 10/09/2023 Active Atorvastatin Calcium 10 MG Oral Tablet (Lipitor)Indications: Hyperlipidemia with target LDL less than 100 Take 1 Tablet by mouth at bedtime. 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 90 Tablet 2 10/09/2023 Active metFORMIN HCl ER 500 MG Oral Tablet Extended Release 24 Hour (Glucophage XR)Indications:Type 2 diabetes mellitus with hemoglobin A1c goal of less than 8.0% ([facility]) take 1 tablet by mouth every morning with food MAY INCREASE TO 1 tablet by mouth twice a day IF TOLERATED 180 Tablet 1 10/09/2023 Active Trelegy Ellipta 200-62.5-25 MCG/ACT Aerosol Powder Breath Activated (Fluticasone-Umeclidi nium-Vilanterol) Inhale 1 Puff by mouth in the morning. 60 Blister Dosing Unit 11 10/09/2023 Active Furosemide 20 MG Oral Tablet (Lasix) take 1 tablet by mouth three times a week and 2 tablets by mouth ON ALL OTHER DAYS 180 Tablet 1 11/13/2023 Active LORazepam 1 MG Oral Tablet (Ativan)Indications:A nxiety state,Generalized anxiety disorder take 1 tablet by mouth BEFORE BEDTIME 90 Tablet 11/18/2023 Active Warfarin Sodium 5 MG Oral Tablet (Coumadin)Indications :Chronic anticoagulation Take 1 tablet (5.0mg) daily or as directed by Coumadin clinic 90 Tablet 3 11/18/2023 Active Solifenacin Succinate 10 MG Oral Tablet (VESIcare) Take 1 Tablet by mouth in the morning. 90 Tablet 3 02/10/2024 Active OneTouch Ultra In Vitro Strip (Glucose Blood)Indications:Typ e 2 diabetes mellitus with hemoglobin A1c goal of less than 8.0% ([facility]) TEST once daily E11.9 100 Strip 3 04/30/2024 Active Nystatin [id number] UNIT/GM External Powder ([facility])Indications:C andidal skin infection APPLY TOPICALLY TO AFFECTED AREA TWICE A DAY TO PANNUS FOLDS 60 g 05/18/2024 Active Triamcinolone Acetonide 0.1 % External Cream (Aristocort)Indicatio ns:Dermatitis Apply topically to affected area 2 times a day. To affected area. 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 01/31/2021 Coagulation defect 08/02/2020 TIA (transient ischemic attack) 12/09/2019 Personal history of TIA (transient ischemic jermaine ck) 03/05/2019 History of uterine cancer 10/09/2017 HTN, goal below 150/90 10/23/2016 DM neuropathy, type II diabetes mellitus 015 Hyperlipidemia with target LDL less than 100 Overview: ICD-10 update of inactive term COPD with asthma 05/30/2015 Type 2 diabetes mellitus wit h hemoglobin A1c goal of less than 8.0% 01/05/2015 Overview: ICD-10 update of inactive term Statin intolerance 08/26/2013 Benign essential tremor 11/07/2012 Restless leg syndrome 10/23/2011 Vitamin D deficiency 04/06/2011 DM TYPE 2 CAUSING NEURO DZ 09/08/2009 Overview: Per Diabetes Taxonomy. joint terminal attack controller current use of anticoagulant therapy 0 06/15/2005 Overview: ICD-10 update of inactive term ADVANCE DIRECTIVE INFORMATION 04/20/2005 Overview: Yes, Patient instructed to provide copy of advance directive for provider to review and to be scanned into Electronic Medical Record OTHER PULMONARY EMBOLISM AND INFARCTION 01/02/20 05 Family history of other cardiovascular diseases 02/24/2002 Overview: ICD-10 update of inactive term GENERALIZED ANXIETY DIS 03/31/2001 GENERAL OSTEOARTHROSIS Knee joint replacement status Overview: both knees replaced documented as of this encounter (statuses as of 05/26/2024) Resolved Problems Problem Noted Date Diagnosed Date Resolved Date joint terminal attack controller current use of ant icoagulant therapy 11/25/2020 06/28/2023 Class 2 severe obesity due t o excess calories with serious comorbidity and body mass index (BMI) of 37.0 to 37.9 in adult 03/10/2019 3 HTN, goal below 140/90 01/10/201510/23 Post herpetic neuralgia 08/11/201309/12 Post herpetic neuralgia 11/17/201209/12 Post herpetic neuralgia 11/14/201209/12 HTN, goal below 140/80 06/30/201201/10 Overview: Per HTN Protocol #27. Restless leg syndrome 12/08/20102016 Obesity, morbid (more than 1 00 lbs over ideal weight or BMI > 40) 04/25/2010 04/06/2020 Overview: Per Obesity Protocol, #19 ICD-10 update of inactive term HTN, GOAL BELOW 130/80 10/04/200907/03 Overview: Modified per HTN protocol #16. Type 2 diabetes mellitus wit h hemoglobin A1c goal of less than 7.0% 09/08/2009 01/05/2015 Overview: Per Diabetes Taxonomy. ICD-10 update of inactive term DM type 2 causing neurological disease 10/13/2007 09/08/2009 Overview: Per Diabetes Taxonomy. DM neuropathy, type II diabetes mellitus 10/13/2007 08/01/2015 Pain in limb 07/08/2006 10/09/2017 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 management encounter 01/08/2005 03/05/2019 MALIG CRISTHIAN CORPUS UTERI 12/01/200410/09 Dyslipidemia, goal to be determined 04/24/2004 12/09/2008 Overview: Resolved per Duplicate Protocol #2. Hemorrhage of rectum and anus 11/16/2003 10/09/2017 INT HEMRRHOID W COMP NEC 11/16/2003 HYPERTENSION NOS 04/02/2003 10/04/2009 Overview: Modified per HTN protocol #16. Sebaceous cyst 03/11/2003 10/09/2017 TIA (transient ischemic attack) 02/08/2003 03/05/2019 Edema 02/24/2002 10/09/2017 Asthma, allergic 02/12/2002 05/04/2010 OVERWEIGHT 03/31/2001 10/09/2017 Sprain of neck 02/28/2000 10/09/2017 Lipoma 02/28/2000 10/09/2017 Overview: ICD-10 update of inactive term Calcaneal spur 10/09/2017 HYPERGLYCEMIA 10/09/2017 Type 2 diabetes mellitus wit h hemoglobin A1c goal of less than 7.0% 09/08/2009 Overview: Per Diabetes Taxonomy. ICD-10 update of inactive term Dyslipidemia, goal to be determined 10/20/2009 Overview: Per Lipid Taxonomy. documented as of this encounter (statuses as of 05/26/2024) Immunizations Name Administration Dates Next Due COVID-19 mRNA, LNP-s, No Pre serve, 2-Dose Series (Moderna) 01/08/2021,12/06/2020 COVID-19, MRNA-LNP, 23-24, P F, 50 MCG/0.5 mL, 12 YRS AND ABOVE, IM (MODERNA-Spikevax) 09/27/2023 Covid-19, Mrna, Lnp-s, Pf, B ivalent, 30 Mcg, IM, 12 yrs and above (Pfizer) 08/07/2022 Pneumococcal Conjugate Vacc, 13 Valent (Prevnar) 04/13/2015 Pneumococcal Polysaccharide PPV23 (Pneumovax) 08/22/2016 RSV Vac., Recomb, Adjuvant, PF,0.5 Ml (Arexvy) 10/14/2023 Seasonal Influenza, PF, 6 M & above, IM , (FluLaval or Fluzone) 09/01/2020,08/17/2019,07/25/2018,08/12 Seasonal Influenza, Quadriva lent Hd (Fluzone Hd) 09/12/2023,09/11/2022,08/04/2021 Seasonal Influenza, Quadriva lent, No Preserve, IM 08/12/2015 Seasonal Influenza, Split, I IV3, With Preserve, Inj 08/22/2016,08/13/2014,08/11/2013,04/2012,08/20/2011,09/08/2010,08/01/20 09,08/11/2008,08/13/2007 TDAP (age 10 and older)(Boostrix) 10/26/2015 10/26/2016 Varicella Zoster Vaccine (Adult) 03/19/2014,03/2014 documented as of this encounter Social History Tobacco Use Types Packs/Day Years Used Date Smoking Tobacco: Former Cigarettes 2 37 0 [birth year]11/1945 - 11/11/1981 Passive Smoke Exposure: Past Smokeless Tobacco: Never Comments:quit in 1981 Alcohol Use Standard Drinks/Week Comments No 0 (1 standard drink = 0.6 oz pur e alcohol) PHQ-2 Answer Date Recorded PHQ Adult Total Score 0 05/20/2024 Hunger Vital Sign Answer Date Recorded Worried About Running Out of Food in the Last Ye ar Never true 05/18/2020 Ran Out of Food in the Last Year Never true 05/18/2020 Utilities Answer Date Recorded Do you have trouble paying y our heating, water, or electric bill? (Adult - for ages 18 years and over) Not on file 04/28/2024 Is your family able to pay t he heat, water, or electric bill? (Household - for ages 0-17 years) Not on file 04/28/2024 Does your family have access to good internet? (Household - for ages 0-17 years) Not on file 04/28/2024 Social Connections Answer Date Recorded How often do you feel lonely or isolated from those around you? (Adult - for ages 18 years and over) Not on file 04/28/2024 Sex and Gender Information Value Date Recorded Sex Assigned at Female 03/10/2019 1:59 PM EDT Gender Identity Female 03/10/2019 1:59 PM EDT Sexual Orientation Straight 03/10/2019 1: 59 PM EDT Job Start Date Occupation Industry Not on file Not on file Not on file documented as of this encounter Plan of Treatment Upcoming Encounters Date Type Department Care Team (Late st Contact Info) Description 07/14/2024 11:50 AM EDT 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 Pharmacy, [place] [address] [place] [address] [facility] [address] [place] [address] 07/29/2024 4:20 PM EDT Office Visit [place] [address] [place] [address] Duong Looney MD [address] [place] [address] 08/19/2024 1:30 PM EDT Office Visit Urology, [facility] [address] [facility] [place] [address] Jeremy Vital MD [address] [place] [address] 11/23/2024 12:20 PM EST Office Visit [facility] [address] [facility] [place] [id number] Duong Looney MD [address], [place] [id number] Pending Results Name Type Priority Associated Diagnoses Date /Time CULTURE, URINE, QUANTITATIVE Lab Routine Radiation cystitis Urinary frequency Recurrent UTI 05/26/2024 10:10 AM EDT Health Maintenance Due Date Last Done Comments Zoster Vaccines (2 of 3) 05/14/2014 03/19/2014, 03/2014 COVID-19 Vaccine ( season) 2024 09/27/2023, 08/07/2022, 01/08/2021, Additional history exists Influenza Vaccine (FLU shot) (#1) 2024 09/12/2023, 09/11/2022, 08/04/2021, Additional history exists DXA Scan 05/19/2025 01/29/2006, 01/29/2006 Postp oned from 01/29/2011 (Patient Declined After Education) Depression Screening 05/20/2025 05/20/2024 O2 ASSESSMENT COMPLETED IN PAST YEAR FOR COPD 05/20/2025 05/20/2024 documented as of this encounter Medical Devices Not on filedocumented as of this encounter Visit Diagnoses Diagnosis Radiation cystitis Irradiation cystitis Urinary frequency Recurrent UTI Urinary tract infection, site not specified documented in this encounter Advance Directives * No Code Status (Latest Code Status on File) Date Activated Date Inactivated Comments 10/18/2004 9:59 AM 10/18/2004 10:59 AM Care Teams Pot Reliner Relationship Specialty Start Date End Date Duong Looney MD [address] [place] [address] PCP - General 07/31/00 documented as of this encounter
--- OUTSIDE RECORDS SUMMARY | 2024-05-30 11:46 | External Medical Summary | Summary of Care ---
Author Name Unknown Organization [facility] Address [address] [place] [address] Phone [phone] Care Team Providers Care Fire Fighters Dispatcher Name Role Phone Duong oLoney MD Primary Care Provider [phone] Reason for Visit * Reason Onset Date Comments Medication Update 05/29/2024 Encounter Details Date Type Department Care Team (Late st Contact Info) Description 05/29/2024 Telephone Pharmacy, [address] [place] [address] [facility] [address] [place], [place] [id number] Medication Update Allergies Active Allergy Reactions Criticality Noted Date Comments Adhesive Tape 03/11/2003 redness Latex 01/18/2005 rash Lisinopril Cough Low 03/18/2014 Penicillins 07/14/1999 swelling Prednisone 04/20/2005 Pt says it makes her "bleed into her intestines" documented as of this encounter (statuses as of 05/29/2024) Medications Medication Sig Dispensed Refills Start Date End Date Status Blood Glucose Monitoring Suppl (Lex MachinaTOUCH ULTRA 2) w/Device KITIndications:Type 2 diabetes mellitus with hemoglobin A1c goal of less than 8.0% ([facility]) Use as directed to test [...] diabetes mellitus with diabetic neuropathy, unspecified whether prison insulin use (HCC),Restless leg syndrome take 1 [...] hemoglobin A1c goal of less than 8.0% (HCC) take 1 tablet by mouth every morning [...] hemoglobin A1c goal of less than 8.0% ([facility]) TEST once daily E11.9 100 Strip 3 04/30/2024 Active Nystatin 324936 UNIT/GM External Powder (Nyamyc)Indications:C andidal skin infection APPLY TOPICALLY TO AFFECTED AREA TWICE A DAY TO PANNUS FOLDS 60 g 05/18/2024 Active Triamcinolone Acetonide 0.1 % External Cream (Aristocort)Indicatio ns:Dermatitis Apply topically to affected area 2 times a day. To affected area. 80 g 5 05/20/2024 Active Sulfamethoxazole-Trim ethoprim 800-160 MG Oral Tablet (Bactrim DS) Take 1 Tablet by mouth in the morning and 1 Tablet before bedtime. Use as directed.. 14 Tablet 05/28/2024 Active documented as of this encounter (statuses as of 05/29/2024) Active Problems Problem Noted Date Diagnosed Date [...] NEURO DZ 09/08/2009 Overview: Per Diabetes Taxonomy. 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 Best Practice Alert for warfarin drug interaction Isa Thornton PharmD, [facility] Clinical Pharmacist - House Servant [facility] 05/29/2024 11:30 AM documented in this encounter Plan of Treatment Upcoming Encounters Date Type Department Care Team (Late st Contact Info) Description 07/14/2024 11:50 AM EDT 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 Pharmacy, [place] [address] [place] [address] [facility] [address] [place] [address] 07/29/2024 4:20 PM EDT Office Visit Family [place] [address] [place] [facility] [place] [address] Duong Looney MD [address] [place] [address] 08/19/2024 1:30 PM EDT Office Visit Urology, [facility] [address] [facility] [place] [address] Jeremy Vital MD [address] [place] [address] 11/23/2024 12:20 PM EST Office Visit [facility] [address] [facility] [phone] uDong Looney MD [address] [place] [address] Health Maintenance Due Date Last Done Comments Zoster Vaccines (2 of 3) 05/14/2014 03/19/2014, 03/2014 COVID-19 Vaccine (2022- season) 2024 09/27/2023, 08/07/2022, 01/08/2021, Additional history exists Influenza Vaccine (FLU shot) (#1) 2024 09/12/2023, 09/11/2022, 08/04/2021, Additional history exists DXA Scan 05/19/2025 01/29/2006, 01/29/2006 Postp oned from 01/29/2011 (Patient Declined After Education) Depression Screening 05/20/2025 05/20/2024 O2 ASSESSMENT COMPLETED IN PAST YEAR FOR COPD 05/20/2025 05/20/2024 documented as of this encounter Medical Devices Not on filedocumented as of this encounter Advance Directives * No Code Status (Latest Code Status on File) Date Activated Date Inactivated Comments 10/18/2004 9:59 AM 10/18/2004 10:59 AM Care Teams Fire Fighters Dispatcher Relationship Specialty Start Date End Date Duong Looney [facility] [address] [facility] [address] PCP - General 07/31/00 documented as of this encounter
--- OUTSIDE RECORDS SUMMARY | 2024-05-30 11:46 | External Medical Summary | Summary of Care ---
Author Name Unknown Organization [facility] Address [address] [place] [address] Phone [phone] Care Team Providers Care Funeral Director And Embalmer Name Role Phone Duong Looney MD Primary Care Provider [phone] Encounter Details Date Type Department Care Team (Late st Contact Info) Description 05/20/2024 Telephone [facility] [address] [facility] [place] [address] Duong Looney MD [address] [place] [address] Allergies Active Allergy Reactions Criticality Noted Date Comments Adhesive Tape 03/11/2003 redness Latex 01/18/2005 rash Lisinopril Cough Low 03/18/2014 Penicillins 07/14/1999 swelling Prednisone 04/20/2005 Pt says it makes her "bleed into her intestines" documented as of this encounter (statuses as of 05/20/2024) Medications Medication Sig Dispensed Refills Start Date End Date Status Blood Glucose Monitoring Suppl (MediaSiloUCH ULTRA 2) w/Device KITIndications:Type 2 diabetes mellitus with hemoglobin A1c goal of less than 8.0% ([facility]) Use as directed to test [...] diabetes mellitus with diabetic neuropathy, unspecified whether snf insulin use (HCC),Restless leg syndrome take 1 [...] hemoglobin A1c goal of less than 8.0% ([facility]) take 1 tablet by mouth [...] hemoglobin A1c goal of less than 8.0% ([facility]) TEST once daily E11.9 100 Strip 3 04/30/2024 Active Nystatin 663956 UNIT/GM External Powder ([facility])Indications:C andidal skin infection APPLY TOPICALLY TO AFFECTED AREA TWICE A DAY TO PANNUS FOLDS 60 g 05/18/2024 Active Triamcinolone Acetonide 0.1 % External Cream (Aristocort)Indicatio ns:Dermatitis Apply topically to affected area 2 times a day. To affected area. 80 g 5 05/20/2024 Active documented as of this encounter (statuses as of 05/20/2024) Active Problems Problem Noted Date Diagnosed Date [...] NEURO DZ 09/08/2009 Overview: Per Diabetes Taxonomy. 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 The earliest appt was July 29. If pt needs to be seen sooner, please authorize and pt will need to be contacted to have an appt sooner than July 29. documented in this encounter Plan of Treatment Upcoming Encounters Date Type Department Care Team (Late st Contact Info) Description 07/14/2024 11:50 AM EDT 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 Pharmacy, [place] [address] [place] [address] [facility] [address] [place] [address] 07/29/2024 4:20 PM EDT Office Visit [facility] [address] [facility] [place] [phone] Duong Looney MD [address] [place] [address] 08/19/2024 1:30 PM EDT Office Visit Urology, [address] [place] [address] Jeremy Vital MD [address] [place] [address] 11/23/2024 12:20 PM EST Office Visit [facility] [address] [facility] [place] [phone] Duong Looney MD [address] [place], [place] [phone] Health Maintenance Due Date Last Done Comments [...] 9:59 AM 10/18/2004 10:59 AM Care Teams Funeral Director And Embalmer Relationship Specialty Start Date End Date Duong Looney MD [address] [place] [address] PCP - General 07/31/00 documented as of this encounter
--- OUTSIDE RECORDS SUMMARY | 2024-05-30 11:46 | External Medical Summary | Summary of Care ---
Author Name Unknown Organization [facility] Address [address] [place] [address] Phone [phone] Care Team Providers Care Semi Conductor Assembler Name Role Phone Duong Looney MD Primary Care Provider [phone] Encounter Details Date Type Department Care Team (Late st Contact Info) Description 05/20/2024 Telephone [facility] [address] [place] [facility] [place] [address] Duong Looney MD [address] [place] [address] Allergies Active Allergy Reactions Criticality Noted Date Comments Adhesive Tape 03/11/2003 redness Latex 01/18/2005 rash Lisinopril Cough Low 03/18/2014 Penicillins 07/14/1999 swelling Prednisone 04/20/2005 Pt says it makes her "bleed into her intestines" documented as of this encounter (statuses as of 05/20/2024) Medications Medication Sig Dispensed Refills Start Date End Date Status Blood Glucose Monitoring Suppl (Revolutionary Medical DevicesUCH ULTRA 2) w/Device KITIndications:Type 2 diabetes mellitus with hemoglobin A1c goal of less than 8.0% ([facility]) Use as directed to test [...] diabetes mellitus with diabetic neuropathy, unspecified whether half-way insulin use (HCC),Restless leg syndrome take 1 [...] hemoglobin A1c goal of less than 8.0% ([facility]) take 1 tablet by mouth [...] hemoglobin A1c goal of less than 8.0% ([facility]) TEST once daily E11.9 100 Strip 3 04/30/2024 Active Nystatin 181500 UNIT/GM External Powder ([facility])Indications:C andidal skin infection APPLY TOPICALLY TO [...] NEURO DZ 09/08/2009 Overview: Per Diabetes Taxonomy. 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 Made aware that the pt did receive a RSV vaccine on 10/14/2023. Daughter stated understanding. Daughter will call back in September to schedule a nurse visit for Flu and first shingrix shot. documented in this encounter Plan of Treatment Upcoming Encounters Date Type Department Care Team (Late st Contact Info) Description 07/14/2024 11:50 AM EDT 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 Pharmacy, [place] [address] [place] [address] [facility] [address] [place] [address] 07/29/2024 4:20 PM EDT [address] [phone] Duong Looney MD [address] [place] [address] 08/19/2024 1:30 PM EDT Office Visit Urology, [facility] [address] [facility] [place] [address] Jeremy Vital MD [address] [place] [id number] 11/23/2024 12:20 PM EST Office Visit [place] [address] [place] [phone] Duong Looney MD [address] [facility] [place] [phone] Health Maintenance Due Date Last Done Comments [...] 9:59 AM 10/18/2004 10:59 AM Care Teams Semi Conductor Assembler Relationship Specialty Start Date End Date Duong Looney MD [address] [place] [address] PCP - General 07/31/00 documented as of this encounter
--- OUTSIDE RECORDS SUMMARY | 2024-05-30 11:46 | External Medical Summary | Summary of Care ---
Author Name Unknown Organization [facility] Address [address] [place] [address] Phone [phone] Care Team Providers Care Ragman Name Role Phone Duong Looney MD Primary Care Provider [phone] Reason for Visit * Reason Comments Follow Up Patient is here toda y for a follow up. Patients daughter would like a spot checked on the right side of the patients face that she has been picking at. Daughter states there was blood in the left ear the other night and she would like it looked at. Daughter has a picture of a rash under skin fold under stomach. Encounter Details Date Type Department Care Team (Late st Contact Info) Description 05/20/2024 12:20 PM EDT Office Visit [facility] [address] [place] [phone] Duong Looney MD [address], [place] [id number] Dermatitis*; Type 2 diabetes mellitus with hemoglobin A1c goal of less than 8.0% ([facility]) Allergies Active Allergy Reactions Criticality Noted Date Comments Adhesive Tape 03/11/2003 redness Latex 01/18/2005 rash Lisinopril Cough Low 03/18/2014 Penicillins 07/14/1999 swelling Prednisone 04/20/2005 Pt says it makes her "bleed into her intestines" documented as of this encounter (statuses as of 05/20/2024) Medications Medication Sig Dispensed Refills Start Date End Date Status Blood Glucose Monitoring Suppl ([employer] ULTRA 2) w/Device KITIndications:Type 2 diabetes mellitus with hemoglobin A1c goal of less than 8.0% ([facility]) Use as directed to test blood sugar [...] HFA 108 (90 Base) MCG/ACT Inhalation Aerosol SolutionIndications: Asthma with severity to be determined inhale 2 puffs by mouth and INTO THE LUNGS every 4 hours if needed for wheezing 18 g 5 10/09/2023 Active Atorvastatin Calcium 10 MG Oral Tablet (Lipitor)Indications :Hyperlipidemia with target LDL less than 100 Take 1 Tablet by mouth at bedtime. 90 Tablet 2 10/09/2023 Active Gabapentin 300 MG Oral Capsule (Neurontin)Indicatio ns:Type 2 diabetes mellitus with diabetic neuropathy, unspecified whether mcfp insulin use (HCC),Restless leg syndrome take 1 [...] hemoglobin A1c goal of less than 8.0% ([facility]) take 1 tablet by mouth every morning with food MAY INCREASE TO 1 tablet by mouth twice a day IF TOLERATED 180 Tablet 1 10/09/2023 Active Trelegy Ellipta 200-62.5-25 MCG/ACT Aerosol Powder Breath Activated (Fluticasone-Umeclid inium-Vilanterol) Inhale 1 Puff by mouth in the morning. 60 Blister Dosing Unit 11 10/09/2023 Active Furosemide 20 MG Oral Tablet (Lasix) take 1 tablet by mouth three times a week and 2 tablets by mouth ON ALL OTHER DAYS 180 Tablet 1 11/13/2023 Active LORazepam 1 MG Oral Tablet (Ativan)Indications: Anxiety state,Generalized anxiety disorder take 1 tablet by mouth BEFORE BEDTIME 90 Tablet 11/18/2023 Active Warfarin Sodium 5 MG Oral Tablet (Coumadin)Indication s:Chronic anticoagulation Take 1 tablet (5.0mg) daily or as directed by Coumadin clinic 90 Tablet 3 11/18/2023 Active Solifenacin Succinate 10 MG Oral Tablet (VESIcare) Take 1 Tablet by mouth in the morning. 90 Tablet 3 02/10/2024 Active OneTouch Ultra In Vitro Strip (Glucose Blood)Indications:Ty pe 2 diabetes mellitus with hemoglobin A1c goal of less than 8.0% ([facility]) TEST once daily E11.9 100 Strip 3 04/30/2024 Active Nystatin 912210 UNIT/GM External Powder (Nyamy)Indications: Candidal skin infection APPLY TOPICALLY TO AFFECTED AREA TWICE A DAY TO PANNUS FOLDS 60 g 05/18/2024 Active Triamcinolone Acetonide 0.1 % External Cream (Aristocort)Indicati ons:Dermatitis Apply topically to affected area 2 times a day. To affected area. 80 g 5 05/20/2024 Active ferrous sulfate (FEOSOL) 325 (65 FE) MG Tablet Take 1 Tab by mouth 2 times a day. 60 Tab 04/06/2020 05/20/20 24 Discontinu ed(Medicat ion List Clean Up) Diclofenac Sodium 1 % External Gel (Voltaren)Indication s:DM type 2 causing neurological disease ([facility]) Apply topically to affected area every 6 hours as needed for Other (burning hands). Apply to hands 150 g 11 11/14/2021 05/20/20 24 Discontinu ed(Medicat ion List Clean Up) Fluticasone Propionate 50 MCG/ACT Nasal Suspension (Flonase) Administer 2 Sprays into each nostril in the morning. 16 g 3 10/09/2023 05/20/20 24 Discontinu ed(Medicat ion List Clean Up) Montelukast Sodium 10 MG Oral Tablet (Singulair) Take 1 Tablet by mouth in the morning. 90 Tablet 3 10/09/2023 05/20/20 24 Discontinu ed(Medicat ion List Clean Up) Nitrofurantoin Monohyd Macro 100 MG Oral Capsule (Macrobid)Indication s:UTI symptoms Take 1 Capsule by mouth in the morning and 1 Capsule before bedtime. With food until gone. 14 Capsule 2 02/10/2024 05/20/20 24 Discontinu ed(Medicat ion List Clean Up) documented as of this encounter (statuses as [...] NEURO DZ 09/08/2009 Overview: Per Diabetes Taxonomy. detention current use of anticoagulant therapy 0 06/15/2005 [...] Problem Noted Date Diagnosed Date Resolved Date detention current use of ant icoagulant therapy 11/25/2020 [...] Influenza, Split, I IV3, With Preserve, Inj 08/22/2016,08/13/2014,08/11/2013,110 04/2012,08/20/2011,09/08/2010,08/01/20 09,08/11/2008,08/13/2007 TDAP (age 10 and older)(Boostrix) 10/26/2015 [...] on file documented as of this encounter Last Filed Vital Signs Vital Sign Reading Time Taken Comments Blood Pressure 136/76 05/20/2024 1:20 PM EDT Pulse 85 05/20/2024 1:20 PM EDT Temperature 36.7 C (98 F) 05/20/2024 1:20 PM EDT Respiratory Rate 16 05/20/2024 1:20 PM EDT Oxygen Saturation 92% 05/20/2024 1:20 PM EDT Inhaled Oxygen Concentration - - Weight 106.9 kg (235 lb 9.6 oz) 05/20/2024 1:20 PM EDT Height 165.1 cm (5' 5") 05/20/2024 1:20 PM EDT Body Mass Index 39.21 05/20/2024 1:20 PM EDT documented in this encounter Progress Notes * Duong Looney MD - 05/20/2024 1:34 PM EDT Subjective: Keila Vital is a 88 year old female. Chief Complaint Patient presents with Follow Up Patient is here today for a follow up. Patients daughter would like a spot checked on the right side of the patients face that she has been picking at. Daughter states there was blood in the left ear the other night and she would like it looked at. Daughter has a picture of a rash under skin fold under stomach. HPI: 88-YEAR-OLD SEEN TODAY FOR ROUTINE VISIT. NO MAJOR INCIDENTS. SHE HAS NOT BEEN HOSPITALIZED NOR ANY EMERGENCY ROOM VISITS IN THE LAST 6 MONTHS. SHE TELLS ME THAT HER BREATHING IS STABLE. She haschronic lower leg edema but that is seems to be fairly stable. She is wearing her knee-high supportstockings. She had some bleeding from her left ear just a couple days ago. Not sure what happened. It is possible that she scratched it. That is the ear she wears hearing aid. [place] has a few skin lesions onthe face that she would like to have removed. She is aware of the lesions in that bothers her. Has a rash in the left flank area. Currently using Desitin and nystatin powder. Um seems like it isunder control but will not resolve. Is on chronic Coumadin. No abnormal bleeding. No significant changes in Coumadin dosing. Patient Active Problem List Diagnosis GENERALIZED ANXIETY DIS Family history of other cardiovascular diseases OTHER PULMONARY EMBOLISM AND INFARCTION ADVANCE DIRECTIVE INFORMATION GENERAL OSTEOARTHROSIS Knee joint replacement status detention current use of anticoagulant therapy DM TYPE 2 CAUSING NEURO DZ Vitamin D deficiency Restless leg syndrome Benign essential tremor Statin intolerance Type 2 diabetes mellitus with hemoglobin A1c goal of less than 8.0% (HCC) COPD with asthma (HCC) DM neuropathy, type II diabetes mellitus (HCC) Hyperlipidemia with target LDL less than 100 HTN, goal below 150/90 History of uterine cancer Personal history of TIA (transient ischemic attack) TIA (transient ischemic attack) Coagulation defect (HCC) 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 100 Tab 0 PreserVision AREDS 2+Multi Vit Oral Capsule Take 2 Caps by mouth once for 1 dose. 60 Cap 0 Loperamide HCl 2 MG Oral Capsule (Imodium) Take 1 Capsule by mouth as needed for Diarrhea. Albuterol Sulfate HFA 108 (90 Base) MCG/ACT Inhalation Aerosol Solution inhale 2 puffs by mouth andINTO THE LUNGS every 4 hours if needed for wheezing 18 g 5 Atorvastatin Calcium 10 MG Oral Tablet (Lipitor) Take 1 Tablet by mouth at bedtime. 90 Tablet 2 Gabapentin 300 MG Oral Capsule (Neurontin) take 1 capsule by mouth twice a day and 2 capsules by mouth at bedtime 360 Capsule 3 Losartan Potassium 25 MG Oral Tablet (Cozaar) Take 1 Tablet by mouth in the morning. 90 Tablet 2 metFORMIN HCl ER 500 MG Oral Tablet Extended Release 24 Hour (Glucophage XR) take 1 tablet by mouthevery morning with food MAY INCREASE TO 1 tablet by mouth twice a day IF TOLERATED 180 Tablet 1 Trelegy Ellipta 200-62.5-25 MCG/ACT Aerosol Powder Breath Activated (Wgmuxxgwvws-Izamfopimfix-Wosgovadgm) Inhale 1 Puff by mouth in the morning. 60 Blister Dosing Unit 11 Furosemide 20 MG Oral Tablet (Lasix) take 1 tablet by mouth three times a week and 2 tablets by mouth ON ALL OTHER DAYS 180 Tablet 1 LORazepam 1 MG Oral Tablet (Ativan) take 1 tablet by mouth BEFORE BEDTIME 90 Tablet 0 Warfarin Sodium 5 MG Oral Tablet (Coumadin) Take 1 tablet (5.0mg) daily or as directed by Coumadin clinic 90 Tablet 3 Solifenacin Succinate 10 MG Oral Tablet (VESIcare) Take 1 Tablet by mouth in the morning. 90 Tablet3 OneTouch Ultra In Vitro Strip (Glucose Blood) TEST once daily E11.9 100 Strip 3 Nystatin 734311 UNIT/GM External Powder ([facility]) APPLY TOPICALLY TO AFFECTED AREA TWICE A DAY TO PANNUS FOLDS 60 g 0 No current facility-administered medications for this visit. Review of patient's allergies indicates: Allergen Reactions Adhesive Tape redness Latex rash Penicillins swelling Prednisone Pt says it makes her "bleed into her intestines" Lisinopril Cough Objective: BP 136/76 | Pulse 85 | Temp 36.7 C (98 F) (Tympanic) | Resp 16 | Ht 1.651 m (5' 5") | Wt 106.9 kg (235 lb 9.6 oz) | SpO2 92% | BMI 39.21 kg/m | BSA 2.21 m Physical Exam: CONST: alert, pleasant, no acute distress HEAD: normocephalic, atraumatic NECK: supple, soft, no adenopathy EARS: canals I did not see any scratch or bleeding site in the left tympanic membrane. There was nocerumen., TMs normal NARES: clear Eyes - PERRLA, EOM'I OROPHARYNX: clear, no swelling or erythema, moist CV: regular rate and rhythm, no murmur CHEST: clear to auscultation bilaterally, no rales or wheezing ABD: soft, non tender, non distended, no masses or hepatosplenomegaly EXT: 1+ bilateral lower leg edema with support stockings in place, no joint swelling or deformities, NEURO: AAOx3, no gross focal deficits, cerebellar signs normal, affect appropriate MENTAL STATUS: no evidence of thought disorder, no delusional thought, no evidence of paranoia, thought is non-tangential. SKIN: She has to keratotic lesions over the right side of the face and forehead and 1 in the left side in side the hairline. She has a flat pigmented lesion in the high forehead region on the left. This may have been related to a burn. In the left flank area she has some dry skin and a few squamous type patches and some erythematous areas and some more petechial areas ASSESSMENT/PLAN: Dermatitis (Primary)-left flank: Probably combination of monilial dermatitis and irritative dermatitis. Continue to use moisturizer and Desitin as fine daily. Continue nystatin powder once daily. Addtriamcinolone 0.1% cream once or twice daily. Type 2 diabetes mellitus with hemoglobin A1c goal of less than 8.0% ([facility])-check hemoglobin A1c. Continue metformin 500 mg Lower leg edema-continue Lasix 20 mg 3 days a week and 40 mg 4 days a week. Of note is her blood work in February showed a very stable renal function or potassium level was normal Seborrheic keratotic lesions of the forehead and also 1 lesion which may be post burn hyper pigmentation. She is going to return in will freeze lesions. If that is not effective then were going to have her come back and will shave them off. Check-out note: RTC FOR MINOR SURGERY 20 MIN ANY TIME CLOSE TO 3 MO AND RTC 6 MO Duong Looney MD documented in this encounter Nursing Notes * Gaby Irene LPN - 05/20/2024 1:26 PM EDT The patient has been properly identified by confirmation of name and date of . Chief Complaint Patient presents with Follow Up Patient is here today for a follow up. Patients daughter would like a spot checked on the right side of the patients face that she has been picking at. Daughter states there was blood in the left ear the other night and she would like it looked at. Daughter has a picture of a rash under skin fold under stomach. documented in this encounter Plan of Treatment Upcoming Encounters Date Type Department Care Team (Late st Contact Info) Description 07/14/2024 11:50 AM EDT 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 Pharmacy, [place] [address] [place] [address] [facility] [address] [address] 07/29/2024 4:20 PM EDT Office Visit [facility], [place] [address] [phone] Duong Looney MD [address] [place] [address] 08/19/2024 1:30 PM EDT Office Visit Urology, [facility] [address] [place] [address] Jeremy Vital MD [address] [place] [address] 11/23/2024 12:20 PM EST Office Visit [facility] [address] [place] [address] Duong Looney MD [address] [place] [address] Pending Results Name Type Priority Associated Diagnoses Date /Time HEMOGLOBIN A1C Lab Routine Type 2 diabetes mellitus with hemoglobin A1c goal of less than 8.0% (HCC) 05/20/2024 2:21 PM EDT Scheduled Orders Name Type Priority Associated Diagnoses Orde r Schedule HEMOGLOBIN A1C Lab Routine Type 2 diabetes mellitus with hemoglobin A1c goal of less than 8.0% (HCC) Expected: 05/20/2024 (Approximate), Expires: 05/20/2025 Health Maintenance Due Date Last Done Comments [...] as of this encounter Visit Diagnoses Diagnosis Dermatitis- Primary Contact dermatitis and other eczema, due to unspecified cause Type 2 diabetes mellitus with hemoglobin A1c goal of less than 8.0% ([facility]) documented in this encounter Advance Directives * No Code Status (Latest Code Status on File) Date Activated Date Inactivated Comments 10/18/2004 9:59 AM 10/18/2004 10:59 AM Care Teams Ragman Relationship Specialty Start Date End Date Duong Looney MD [address] [place] [address] PCP - General 07/31/00 documented as of this encounter
--- OUTSIDE RECORDS SUMMARY | 2024-05-30 11:46 | External Medical Summary | Summary of Care ---
Author Name Unknown Organization [facility] Address [address] [place] [address] Phone [phone] Care Team Providers Care Computer Operations Manager Name Role Phone Duong Looney MD Primary Care Provider [phone] Reason for Visit * Reason Onset Date Comments Medication Update 05/29/2024 Encounter Details Date Type Department Care Team (Late st Contact Info) Description 05/29/2024 Telephone Pharmacy, [address] Floor [address] [place] [address] [facility] [address] [place], [place] [id number] Medication Update Allergies Active Allergy Reactions Criticality Noted Date Comments Adhesive Tape 03/11/2003 redness Latex 01/18/2005 rash Lisinopril Cough Low 03/18/2014 Penicillins 07/14/1999 swelling Prednisone 04/20/2005 Pt says it makes her "bleed into her intestines" documented as of this encounter (statuses as of 05/29/2024) Medications Medication Sig Dispensed Refills Start Date End Date Status Blood Glucose Monitoring Suppl ([employer] ULTRA 2) w/Device KITIndications:Type 2 diabetes mellitus with hemoglobin A1c goal of less than 8.0% ([facility]) Use as directed to test [...] diabetes mellitus with diabetic neuropathy, unspecified whether fpc insulin use (HCC),Restless leg syndrome take 1 [...] goal of less than 8.0% ([facility]) TEST once daily E11.9 100 Strip 3 04/30/2024 Active Nystatin 007080 UNIT/GM External Powder (Nyamyc)Indications:C andidal skin infection [...] NEURO DZ 09/08/2009 Overview: Per Diabetes Taxonomy. 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 11/25/2020 [...] Valent (Prevnar) 04/13/2015 Pneumococcal Polysaccharide PPV23 (Pneumovax) 08/22/2016,10/08/2001 RSV Vac., Recomb, Adjuvant, PF,0.5 Ml (Arexvy) 10/14/2023 Seasonal Influenza, PF, 6 M & above, IM , (FluLaval or Fluzone) 09/01/2020,08/17/2019,07/25/2018,08/12 Seasonal Influenza, Quadriva lent Hd (Fluzone Hd) 09/12/2023,09/11/2022,08/04/2021 Seasonal Influenza, Quadriva lent, No Preserve, IM 08/12/2015 Seasonal Influenza, Split, I IV3, With Preserve, Inj 08/22/2016,08/13/2014,08/11/2013,04/2012,08/20/2011,09/08/2010,08/01/20 09,08/11/2008,08/13/2007,08/30/2005,1 ,10/22/2002,09/18/2001,09/25,09/06/1999 TDAP (age 10 and older)(Boostrix) 10/26/2015 10/26/2016 [...] encounter Miscellaneous Notes * Telephone Encounter - Cammie Salinas RPh - 05/29/2024 11:57 AM EDT Images from the original note were not included. Medication Therapy Disease Management - 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 Patient: Keila Vital | : 1935 Subjective Patient was started on Sulfamethoxazole-TMP 800-160 mg BID for 7 days. Called patient and LMOM to notify pt to check MyG portal providing the above dosage instructions. Patient will resume usual dose when they finish course of antibiotic. Patient will contact [facility] if they experience any issues with unusual bruising or bleeding, or if they have any N/V/D while taking the antibiotic. Repeat INR in 2 weeks on 06/22 Cammie Salinas RPh, PharmD Clinical Pharmacist Medication Therapy Disease Management 05/29/2024, 11:57 AM * Telephone Encounter - Isa Thornton RPh - 05/29/2024 11:30 AM EDT Images from the original note were not included. Best Practice Alert for warfarin drug interaction Isa Thornton PharmD, Izabel Clinical Pharmacist - Driver Engineer Medication Therapy Management Clinic 05/29/2024 11:30 AM documented in this encounter Plan of Treatment Upcoming Encounters Date Type Department Care Team (Late st Contact Info) Description 06/22/2024 1:30 PM EDT 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 Pharmacy, [place] [address] [facility], [place] [address] [facility] [address] [facility], [place] [address] 07/14/2024 11:50 AM EDT 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 Pharmacy, [place] [address] [facility], [place] [address] [facility] [address] [facility], [place] [address] 07/29/2024 4:20 PM EDT Office Visit [facility] [place] [address] [facility] [phone] [facility] [address] [facility] [address] 08/19/2024 1:30 PM EDT Office Visit Urology, [facility] [address] [facility] [place] [address] Jeremy Vital MD [address] [facility] [place] [phone] 11/23/2024 12:20 PM EST Office Visit [facility], [place] [address] [address] [facility], [place] [phone] Duong Looney MD [address] [facility] [phone] Health Maintenance Due Date Last Done Comments [...] as of this encounter Visit Diagnoses Diagnosis Personal history of TIA (transient ischemic attack)- Primary Transient ischemic attack (TIA), and cerebral infarction without residual deficits documented in this encounter Advance Directives * No Code Status (Latest Code Status on File) Date Activated Date Inactivated Comments 10/18/2004 9:59 AM 10/18/2004 10:59 AM Care Teams Computer Operations Manager Relationship Specialty Start Date End Date Duong Looney MD [address] [place] [address] PCP - General 07/31/00 documented as of this encounter
--- OUTSIDE RECORDS SUMMARY | 2024-05-30 11:46 | External Medical Summary | Summary of Care ---
Author Name Unknown Organization [facility] Address [address] [place] [address] Phone [phone] Care Team Providers Care Dispatcher Automobile Rental Name Role Phone Duong Looney MD Primary Care Provider [phone] Encounter Details Date Type Department Care Team (Late st Contact Info) Description 05/28/2024 Telephone Urology [facility] [address] [place] [address] Jeremy Vital MD [address] [place] [address] Allergies Active Allergy Reactions Criticality Noted Date Comments Adhesive Tape 03/11/2003 redness Latex 01/18/2005 rash Lisinopril Cough Low 03/18/2014 Penicillins 07/14/1999 swelling Prednisone 04/20/2005 Pt says it makes her "bleed into her intestines" documented as of this encounter (statuses as of 05/29/2024) Medications Medication Sig Dispensed Refills Start Date End Date Status Blood Glucose Monitoring Suppl ([employer] CommunicationsUCH ULTRA 2) w/Device KITIndications:Type 2 diabetes mellitus with hemoglobin A1c goal of less than 8.0% ([facility]) Use as directed to test [...] diabetes mellitus with diabetic neuropathy, unspecified whether jail insulin use (HCC),Restless leg syndrome take 1 [...] goal of less than 8.0% ([facility]) take 1 tablet by mouth [...] goal of less than 8.0% ([facility]) TEST once daily E11.9 100 Strip 3 04/30/2024 Active Nystatin 864821 UNIT/GM External Powder ([employer])Indications:C andidal skin infection APPLY TOPICALLY TO AFFECTED [...] NEURO DZ 09/08/2009 Overview: Per Diabetes Taxonomy. alf current use of anticoagulant therapy 0 06/15/2005 [...] Problem Noted Date Diagnosed Date Resolved Date alf current use of ant icoagulant therapy 11/25/2020 [...] Influenza, Split, I IV3, With Preserve, Inj 08/22/2016,08/13/2014,08/11/2013,04/2012,08/20/2011,09/08/2010,08/01/20,08/11/2008,08/13/2007 TDAP (age 10 and older)(Boostrix) 10/26/2015 10/26/2016 [...] encounter Miscellaneous Notes * Telephone Encounter - Jesica Keane LPN - 05/29/2024 11:01 AM EDT lm * Telephone Encounter - Jeremy Vital MD - 05/28/2024 4:35 PM EDT Urine culture is positive, 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 sensitivity self start Macrobid. Prescription for Bactrim sent to the patient's pharmacy for breakthrough coverage. Thanks, HM documented in this encounter Plan of Treatment Upcoming Encounters Date Type Department Care Team (Late st Contact Info) Description 07/14/2024 11:50 AM EDT 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 Pharmacy, [place] [address] [place] [address] [place] [address] [place] [address] 07/29/2024 4:20 PM EDT Office Visit Family Practice, [place] [address] [place] [facility] [place] [phone] Duong Looney MD [address] [place] [address] 08/19/2024 1:30 PM EDT Office Visit Urology, [address] [place] [address] Jeremy Vital MD [address] [place] [address] 11/23/2024 12:20 PM EST [facility] [address] [facility] [phone] Duong Looney MD [address] [place] [address] Health Maintenance Due Date Last Done Comments [...] as of this encounter Visit Diagnoses Diagnosis Recurrent UTI- Primary Urinary tract infection, site not specified Urinary frequency documented in this encounter Advance Directives * No Code Status (Latest Code Status on File) Date Activated Date Inactivated Comments 10/18/2004 9:59 AM 10/18/2004 10:59 AM Care Teams Dispatcher Automobile Rental Relationship Specialty Start Date End Date Duong Looney MD [address] [facility] [address] PCP - General 07/31/00 documented as of this encounter
--- OUTSIDE RECORDS SUMMARY | 2024-05-30 11:46 | External Medical Summary | Summary of Care ---
Author Name Unknown Organization [facility] Address [address] [place] [address] Phone [phone] Care Team Providers Care Foot Doctor Name Role Phone Duong Looney MD Primary Care Provider [phone] Reason for Visit * Reason Comments Outpatient Testing Encounter Details Date Type Department Care Team (Late st Contact Info) Description 05/20/2024 2:20 PM EDT Laboratory Laboratory, [place] [address] [place] [address] [place] [address] [place] [address] Chronic diastolic CHF (congestive heart failure) ([facility]); Type 2 diabetes mellitus with hemoglobin A1c goal of less than 8.0% ([facility]) Allergies Active Allergy Reactions Criticality Noted Date Comments Adhesive Tape 03/11/2003 redness Latex 01/18/2005 rash Lisinopril Cough Low 03/18/2014 Penicillins 07/14/1999 swelling Prednisone 04/20/2005 Pt says it makes her "bleed into her intestines" documented as of this encounter (statuses as of 05/20/2024) Medications Medication Sig Dispensed Refills Start Date End Date Status Blood Glucose Monitoring Suppl (Inside ULTRA 2) w/Device KITIndications:Type 2 diabetes mellitus with hemoglobin A1c goal of less than 8.0% ([facility]) Use as directed to test [...] diabetes mellitus with diabetic neuropathy, unspecified whether 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 11/25/2020 [...] Info) Description 07/14/2024 11:50 AM EDT 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 [address] [place] [address] [place] [facility] [address] [place] [address] 07/29/2024 4:20 PM EDT Office Visit [address] [place] [phone] Duong Looney MD [address] [place] [address] 08/19/2024 1:30 PM EDT Office Visit Urology, [facility] [address] [facility] [place] [address] Jeremy Vital MD [address] [place] [address] 11/23/2024 12:20 PM EST [facility] [address] [facility] [phone] Duong Looney MD [address] [place] [facility] [address] Pending Results Name Type Priority Associated Diagnoses Date /Time BASIC METABOLIC PANEL Lab Routine Chronic diastolic CHF (congestive heart failure) (HCC) 05/20/2024 2:21 PM EDT HEMOGLOBIN A1C Lab Routine Type 2 diabetes mellitus with hemoglobin A1c goal of less than 8.0% (HCC) 05/20/2024 2:21 PM EDT Health Maintenance Due Date Last Done [...] as of this encounter Visit Diagnoses Diagnosis Chronic diastolic CHF (congestive heart failure) (HCC) Chronic diastolic heart failure Type 2 diabetes mellitus with hemoglobin A1c goal of less than 8.0% (HCC) documented in this encounter Advance Directives * No Code Status (Latest Code Status on File) Date Activated Date Inactivated Comments 10/18/2004 9:59 AM 10/18/2004 10:59 AM Care Teams Foot Doctor Relationship Specialty Start Date End Date Duong Looney MD [address] [place] [address] PCP - General 07/31/00 documented as of this encounter
--- OUTSIDE RECORDS SUMMARY | 2024-05-30 11:46 | External Medical Summary | Summary of Care ---
Author Name Unknown Organization [facility] Address [address] [place] [address] Phone [phone] Care Team Providers Care Affiliate Marketing Specialist Name Role Phone Duong Looney MD Primary Care Provider [phone] Reason for Visit * Reason Onset Date Comments Advice 05/27/2024 Encounter Details Date Type Department Care Team (Late st Contact Info) Description 05/27/2024 Telephone Urology, [facility] [address] [place] [address] Services, Scheduling [address] [place] [address] Advice Allergies Active Allergy Reactions Criticality Noted Date Comments Adhesive Tape 03/11/2003 redness Latex 01/18/2005 rash Lisinopril Cough Low 03/18/2014 Penicillins 07/14/1999 swelling Prednisone 04/20/2005 Pt says it makes her "bleed into her intestines" documented as of this encounter (statuses as of 05/27/2024) Medications Medication Sig Dispensed Refills Start Date End Date Status Blood Glucose Monitoring Suppl ([employer] ULTRA 2) w/Device KITIndications:Type 2 diabetes mellitus with hemoglobin A1c goal of less than 8.0% ([facility]) Use as directed to test blood [...] diabetes mellitus with diabetic neuropathy, unspecified whether ferry 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 To affected area. 80 g 5 05/20/2024 Active documented as of this encounter (statuses as of 05/27/2024) Active Problems Problem Noted Date Diagnosed Date [...] NEURO DZ 09/08/2009 Overview: Per Diabetes Taxonomy. 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 We will notify patient of results when available. * Telephone Encounter - Lucie Segal OSA - 05/27/2024 1:37 PM EDT Pt daughter Precious calling in stating pt has UTI symptoms. She took a sample into [place] yesterday and has not heard back. Please advise if she has UTI and if something will be called in. documented in this encounter Plan of Treatment Upcoming Encounters Date Type Department Care Team (Late st Contact Info) Description 07/14/2024 11:50 AM EDT 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, [place] [address] [facility] [address] [facility] [address] [place] [address] 07/29/2024 4:20 PM EDT Office Visit [facility] [place] [address] [place] [address] Duong Looney MD [address] [place] [facility] [place] [address] 08/19/2024 1:30 PM EDT Office Visit Urology, [facility] [address] [place] [address] Jeremy Vital MD [address] [place] [address] 11/23/2024 12:20 PM EST Office Visit Family [facility], [place] [address] [facility] [place] [address] Duong Looney MD [address] [facility] [place] [address] Health Maintenance Due Date Last Done Comments [...] 9:59 AM 10/18/2004 10:59 AM Care Teams Affiliate Marketing Specialist Relationship Specialty Start Date End Date Duong Looney MD [address] [place] [address] PCP - General 07/31/00 documented as of this encounter
--- OUTSIDE RECORDS SUMMARY | 2024-05-30 11:46 | External Medical Summary | Summary of Care ---
Author Name Unknown Organization [facility] Address [address] [place] [address] Phone [phone] Care Team Providers Care Ventilating Expert Name Role Phone Duong Looney MD Primary Care Provider [phone] Reason for Visit * Reason Onset Date Comments Advice 05/27/2024 Encounter Details Date Type Department Care Team (Late st Contact Info) Description 05/27/2024 Telephone Urology, [facility] [address] [place] [address] Services, Scheduling [address] [place] [address] Advice Allergies Active Allergy Reactions Criticality Noted Date Comments Adhesive Tape 03/11/2003 redness Latex 01/18/2005 rash Lisinopril Cough Low 03/18/2014 Penicillins 07/14/1999 swelling Prednisone 04/20/2005 Pt says it makes her "bleed into her intestines" documented as of this encounter (statuses as of 05/27/2024) Medications Medication Sig Dispensed Refills Start Date End Date Status Blood Glucose Monitoring Suppl ([employer] ULTRA 2) w/Device KITIndications:Type 2 diabetes mellitus with hemoglobin A1c goal of less than 8.0% ([facility]) Use as directed to test blood sugar [...] diabetes mellitus with diabetic neuropathy, unspecified whether metabolic specialist insulin use (HCC),Restless leg syndrome take 1 [...] hemoglobin A1c goal of less than 8.0% ([facility]) TEST once daily E11.9 100 Strip 3 04/30/2024 Active Nystatin 357643 UNIT/GM External Powder ([facility])Indications:C andidal skin infection APPLY TOPICALLY TO AFFECTED [...] NEURO DZ 09/08/2009 Overview: Per Diabetes Taxonomy. 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 She took a sample into [place] yesterday and has not heard back. Please advise if she has UTI and if something will be called in. documented in this encounter Plan of Treatment Upcoming Encounters Date Type Department Care Team (Late st Contact Info) Description 07/14/2024 11:50 AM EDT 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 Pharmacy, [place] [address] [facility] [address] [facility] [address] [place] [facility] [place] [address] 07/29/2024 4:20 PM EDT Office Visit [facility], [place] [address] [place] [facility] [place] [address] Duong Looney MD [address] [place] [address] 08/19/2024 1:30 PM EDT Office Visit Urology, [facility] [address] [place] [address] Jeremy Vital MD [address] [place] [address] 11/23/2024 12:20 PM EST Office Visit Family [facility], [place] [address] [facility] [place] [address] Duong Looney MD [address] [facility] [place] [address] Health Maintenance Due Date Last Done Comments [...] 9:59 AM 10/18/2004 10:59 AM Care Teams Ventilating Expert Relationship Specialty Start Date End Date Duong Looney MD [address] [place] [address] PCP - General 07/31/00 documented as of this encounter
--- OUTSIDE RECORDS SUMMARY | 2024-05-30 11:46 | External Medical Summary ---
Author Name Unknown Address Unknown Organization K01:[facility] [place] - [address] [place], [place] [address] Laboratory Report Ordering Provider Test Date Status OG VILLA 05/26/2024 10:10:56 Final <10,000 colonies/ml mixed no rmal cristino Observation Date Value Abnormality Reference (Units ) Status Bacteria identified in Specimen by Culture 05/26/2024 10:10:56 [id number]^ESCHE RICHIA COLI Abnormal Final 10,000 to 100,000 colonies/m L Escherichia coli Performing Location [facility] – [place] - [address] [place], [place] [address] Ordering Provider Test Date Status OG VILLA 05/26/2024 10:10:56 Final Observation Date Value Abnormality Reference (Units ) Status Ampicillin 05/26/2024 10:10:56 8 Susceptible Final Cefazolin 05/26/2024 10:10:56 <=4 Susceptible Final Cefepime susceptibility 05/26/2024 10:10:56 <=1 Susceptible Final Ceftriaxone suceptibility 05/26/2024 10:10:56 <=1 Susceptible Final Ciprofloxacin 05/26/2024 10:10:56 <=0.25 Susceptible Final Due to serious side effects, the FDA has advised against using Ciprofloxacin to treat uncomplicated UTIs and respiratory tract infections unless there are no alternative treatment options. Gentamicin susceptibility 05/26/2024 10:10:56 <=1 Susc eptible Final Nitrofurantoin susceptibility 05/26/2024 10:10:56 64 Intermediate Final Piperacillin + Tazobactamsusceptibility 05/26/2024 10:10:56 <=4 Susceptible Final TMP-SMZ susceptibility 05/26/2024 10:10:56 <=20 Suscept ible Final Test: Culture, Urine, Quanti tative
Specimen Source: Urine, Clean Catch
Specimen Type: Urine
Specimen Date: 05/26/2024 1010
Result Date: 05/28/2024 1343
Result Status: Final result
Abnormal: Yes
Resulting Lab: [facility] [place]
[address]
[place], [place] [address]

CULTURE

10,000 to 100,000 colonies/mL Escherichia coli (Abnormal)

<10,000 colonies/ml mixed normal cristino

SUSCEPTIBILITY

Escherichia coli
METHOD MICROBROTH DILUTIONS

AMPICILLIN 8 Susceptible
CEFAZOLIN <=4 Susceptible
CEFEPIME <=1 Susceptible
CEFTRIAXONE <=1 Susceptible
CIPROFLOXACIN <=0.25 Susceptible
[1]
GENTAMICIN <=1 Susceptible
NITROFURANTOIN 64 Intermediate
PIPERACILLIN TAZOBACTAM <=4 Susceptible
TRIMETH/SULFAMETHOXAZOLE <=20 Susceptible

[1] Due to serious side effects, the FDA has advised against using
Ciprofloxacin to treat uncomplicated UTIs and respiratory tract infections
unless there are no alternative treatment options.

null Performing Location [facility] – [place] - [address] [place], [place] [address]
--- OUTSIDE RECORDS SUMMARY | 2024-05-30 11:46 | External Medical Summary | Summary of Care ---
Author Name Unknown Organization [facility] Address [address] [place] [address] Phone [phone] Care Team Providers Care Manager Mac Name Role Phone Duong Looney MD Primary Care Provider [phone] Reason for Visit * Reason Onset Date Comments Encounter Created in Error 05/20/2024 Encounter Details Date Type Department Care Team (Late st Contact Info) Description 05/20/2024 Orders Only Outcomes Research Department [address] [place], [place] [id number] Becky Tejada CHRA Encounter created in error Allergies Active Allergy Reactions Criticality Noted Date Comments Adhesive Tape 03/11/2003 redness Latex 01/18/2005 rash Lisinopril Cough Low 03/18/2014 Penicillins 07/14/1999 swelling Prednisone 04/20/2005 Pt says it makes her "bleed into her intestines" documented as of this encounter (statuses as of 05/20/2024) Medications Medication Sig Dispensed Refills Start Date End Date Status Blood Glucose Monitoring Suppl ([employer] ULTRA 2) w/Device KITIndications:Type 2 diabetes mellitus with hemoglobin A1c goal of less than 8.0% ([facility]) Use as directed to test blood sugar [...] diabetes mellitus with diabetic neuropathy, unspecified whether 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 frame tender insulin use (HCC),Restless leg syndrome take 1 [...] A1c goal of less than 8.0% ([facility]) TEST once daily E11.9 100 Strip 3 04/30/2024 Active Nystatin 395666 UNIT/GM External Powder ([facility])Indications:C andidal skin infection APPLY TOPICALLY TO AFFECTED AREA TWICE A DAY TO PANNUS FOLDS 60 g 05/18/2024 Active documented as of this encounter (statuses [...] NEURO DZ 09/08/2009 Overview: Per Diabetes Taxonomy. 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 0 06/15/2005 [...] Problem Noted Date Diagnosed Date Resolved Date halfway current use of ant icoagulant therapy 11/25/2020 [...] No Pre serve, 2-Dose Series (Moderna) 01/08/2021,12/06/2020 Covid-19, Mrna, Lnp-s, Pf, B ivalent, 30 Mcg, IM, 12 yrs and above (Pfizer) 08/07/2022 Pneumococcal Conjugate Vacc, 13 Valent (Prevnar) 04/13/2015 Pneumococcal Polysaccharide PPV23 (Pneumovax) 08/22/2016,10/08/2001 Seasonal Influenza, PF, 6 M & above, IM , (FluLaval or Fluzone) 09/01/2020,08/17/2019,07/25/2018,08/12 Seasonal Influenza, Quadriva lent Hd (Fluzone Hd) 09/12/2023,09/11/2022,08/04/2021 Seasonal Influenza, Quadriva lent, No Preserve, IM 08/12/2015 Seasonal Influenza, Split, I IV3, With Preserve, Inj 08/22/2016,08/13/2014,08/11/2013,11/0 04/2012,08/20/2011,09/08/2010,08/01/20 09,08/11/2008,08/13/2007,08/30/2005,1 ,10/22/2002,09/18/2001,09/25,09/06/1999 TDAP (age 10 and older)(Boostrix) 10/26/2015 10/26/2016 Varicella Zoster Vaccine (Adult) 11/15/2013 documented as of this encounter Social History [...] on file documented as of this encounter Progress Notes * Jinny Bowman CHRA - 05/20/2024 2:30 PM EDT This encounter was created in error. 05/20/2024, 2:30 PM, DAVID Cates documented in this encounter Miscellaneous Notes * Addendum Note - Jinny Bowman CHRA - 05/20/2024 2:30 PM EDTAddended by: JINNY BOWMAN on: 05/20/2024 02:30 PM Modules accepted: Orders documented in this encounter Plan of Treatment Upcoming Encounters Date Type Department Care Team (Late st Contact Info) Description 07/14/2024 11:50 AM EDT 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 Pharmacy, [place] [address] [facility] [place] [address] [facility] [place] [address] 08/19/2024 1:30 PM EDT Office Visit Urology, [facility] [address] [place] [address] Jeremy Vital MD [address] [place] [address] Health Maintenance Due Date Last Done Comments [...] as of this encounter Visit Diagnoses Diagnosis Encounter Created In Error- Primary documented in this encounter Advance Directives * No Code Status (Latest Code Status on File) Date Activated Date Inactivated Comments 10/18/2004 9:59 AM 10/18/2004 10:59 AM Care Teams Manager Mac Relationship Specialty Start Date End Date Duong Looney MD [address] [place] [facility] [place] [address] PCP - General 07/31/00 documented as of this encounter
--- OUTSIDE RECORDS SUMMARY | 2024-05-30 11:46 | External Medical Summary | Summary of Care ---
Author Name Unknown Organization [facility] Address [address] [place] [address] Phone [phone] Care Team Providers Care Seo Marketing Specialist Name Role Phone Duong Looney MD Primary Care Provider [phone] Reason for Visit * Reason Onset Date Comments Test Results 05/28/2024 [facility] 05/29 Encounter Details Date Type Department Care Team (Late st Contact Info) Description 05/28/2024 Telephone Urology Melvin Navarrete [address] [place] [address] Jeremy Vital MD [address] [place] [address] Test Results ([facility] 05/29) Allergies Active Allergy Reactions Criticality Noted Date Comments Adhesive Tape 03/11/2003 redness Latex 01/18/2005 rash Lisinopril Cough Low 03/18/2014 Penicillins 07/14/1999 swelling Prednisone 04/20/2005 Pt says it makes her "bleed into her intestines" documented as of this encounter (statuses as of 05/29/2024) Medications Medication Sig Dispensed Refills Start Date End Date Status Blood Glucose Monitoring Suppl ([employer] ULTRA 2) w/Device KITIndications:Type 2 diabetes mellitus with hemoglobin A1c goal of less than 8.0% ([facility]) Use as directed to test blood sugar [...] diabetes mellitus with diabetic neuropathy, unspecified whether 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 longterm current use of anticoagulant therapy 0 06/15/2005 [...] Problem Noted Date Diagnosed Date Resolved Date longterm current use of ant icoagulant therapy 11/25/2020 [...] Description 07/14/2024 11:50 AM EDT 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, [place] [address] [facility] [address] [facility] [address] [place] [facility] [place] [address] 07/29/2024 4:20 PM EDT Office Visit Family Practice, [place] [address] [place] [address] Duong Looney MD [address] [place] [address] 08/19/2024 1:30 PM EDT Office Visit Urology, [facility] [address] [place], [place] [address] Jeremy Vital MD [address] [place] [address] 11/23/2024 12:20 PM EST Office Visit Family [facility] [address] [place] [address] Duong Looney MD [address], [place] [phone] Health Maintenance Due Date Last Done Comments [...] 9:59 AM 10/18/2004 10:59 AM Care Teams Seo Marketing Specialist Relationship Specialty Start Date End Date Duong Looney MD [address] [place] [address] PCP - General 07/31/00 documented as of this encounter
--- OUTSIDE RECORDS SUMMARY | 2024-05-30 11:46 | External Medical Summary | Summary of Care ---
Author Name Unknown Organization [facility] Address [address] [place] [address] Phone [phone] Care Team Providers Care [employer] Flatbed Driver Name Role Phone Duong Looney MD Primary Care Provider [phone] Reason for Visit * Reason Onset Date Comments MyCode Nonconsent - Not interested at this time 05/20/2024 Encounter Details Date Type Department Care Team (Late st Contact Info) Description 05/20/2024 Orders Only Outcomes Research Department [address] [place] [address] Becky Tejada CHRA MyCode Nonconsent Documentation Allergies Active Allergy Reactions Criticality Noted Date Comments Adhesive Tape 03/11/2003 redness Latex 01/18/2005 rash Lisinopril Cough Low 03/18/2014 Penicillins 07/14/1999 swelling Prednisone 04/20/2005 Pt says it makes her "bleed into her intestines" documented as of this encounter (statuses as of 05/20/2024) Medications Medication Sig Dispensed Refills Start Date End Date Status Blood Glucose Monitoring Suppl ([employer] ULTRA 2) w/Device KITIndications:Type 2 diabetes mellitus with hemoglobin A1c goal of less than 8.0% ([facility]) Use as directed to test blood [...] diabetes mellitus with diabetic neuropathy, unspecified whether 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 documented in this encounter Plan of Treatment Upcoming Encounters Date Type Department Care Team (Late st Contact Info) Description 07/14/2024 11:50 AM EDT 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 [facility], [place] [address] [place] [address] [facility] [address] [place] [address] 07/29/2024 4:20 PM EDT Office Visit [place] [address] [place] [phone] Duong Looney MD [address] [place] [address] 08/19/2024 1:30 PM EDT Office Visit Urology, [facility] [address] [facility] [place] [address] Jeremy Vital MD [address] [place] [address] 11/23/2024 12:20 PM EST Office Visit [place] [address] [place] [address] Duong Looney MD [address] [place] [address] Health Maintenance Due Date Last Done Comments [...] 9:59 AM 10/18/2004 10:59 AM Care Teams [employer] Flatbed Driver Relationship Specialty Start Date End Date Duong Looney MD [address] [place] [address] PCP - General 07/31/00 documented as of this encounter
--- OUTSIDE RECORDS SUMMARY | 2024-05-30 11:47 | External Medical Summary | Summary of Care ---
Author Name Unknown Organization [facility] Address [address] [place] [address] Phone [phone] Care Team Providers Care Linotype Operator Name Role Phone Duong Looney MD Primary Care Provider [phone] Encounter Details Date Type Department Care Team (Late st Contact Info) Description 04/30/2024 Telephone [facility] [address] [facility] [place] [address] Duong Looney MD [address] [place] [address] Allergies Active Allergy Reactions Criticality Noted Date Comments Adhesive Tape 03/11/2003 redness Latex 01/18/2005 rash Lisinopril Cough Low 03/18/2014 Penicillins 07/14/1999 swelling Prednisone 04/20/2005 Pt says it makes her "bleed into her intestines" documented as of this encounter (statuses as of 04/30/2024) Medications Medication Sig Dispensed Refills Start Date End Date Status Blood Glucose Monitoring Suppl (Ravn ULTRA 2) w/Device KITIndications:Type 2 diabetes mellitus with hemoglobin A1c goal of less than 8.0% ([facility]) Use as directed to test blood sugar twice daily E11.9 1 Kit 7 Active ferrous sulfate (FEOSOL) 325 (65 FE) MG Tablet Take 1 Tab by mouth 2 times a day. 60 Tab 0 Active Acetaminophen 500 MG Oral Tablet (TYLENOL) Take 2 Tablets by mouth every 6 hours as needed for Pain, Mild. 100 Tab 0 Active PreserVision AREDS 2+Multi Vit Oral Capsule Take 2 Caps by mouth once for 1 dose. 60 Cap 1 Active Diclofenac Sodium 1 % External Gel (Voltaren)Indicatio ns:DM type 2 causing neurological disease (HCC) Apply topically to affected area every 6 hours as needed for Other (burning hands). Apply to hands 150 g 11 2 Active Additional Information Patient not taking.Reported on 02/18/2024 Nystatin [id number] UNIT/GM External Powder ([facility])Indications :Candidal skin infection APPLY TOPICALLY TO AFFECTED AREA 2 TIMES A DAY TO PANNUS FOLDS 60 g 5 2 Active Loperamide HCl 2 MG Oral Capsule (Imodium) Take 1 Capsule by mouth as needed for Diarrhea. Active Albuterol Sulfate HFA 108 (90 Base) MCG/ACT Inhalation Aerosol SolutionIndications :Asthma with severity to be determined inhale 2 puffs by mouth and INTO THE LUNGS every 4 hours if needed for wheezing 18 g 5 3 Active Additional Information Patient not taking.Reported on 02/18/2024 Atorvastatin Calcium 10 MG Oral Tablet (Lipitor)Indication s:Hyperlipidemia with target LDL less than 100 Take 1 Tablet by mouth at bedtime. 90 Tablet 2 3 Active Fluticasone Propionate 50 MCG/ACT Nasal Suspension (Flonase) Administer 2 Sprays into each nostril in the morning. 16 g 3 3 Active Additional Information Patient not taking.Reported on 02/18/2024 Gabapentin 300 MG Oral Capsule (Neurontin)Indicati ons:Type 2 diabetes mellitus with diabetic neuropathy, unspecified whether director long term care insulin use (HCC),Restless leg syndrome take 1 capsule by mouth twice a day and 2 capsules by mouth at bedtime 360 Capsule 3 3 Active Losartan Potassium 25 MG Oral Tablet (Cozaar) Take 1 Tablet by mouth in the morning. 90 Tablet 2 3 Active metFORMIN HCl ER 500 MG Oral Tablet Extended Release 24 Hour (Glucophage XR)Indications:Type 2 diabetes mellitus with hemoglobin A1c goal of less than 8.0% ([facility]) take 1 tablet by mouth every morning with food MAY INCREASE TO 1 tablet by mouth twice a day IF TOLERATED 180 Tablet 1 3 Active Additional Information Patient not taking.Reported on 11/18/2023 Montelukast Sodium 10 MG Oral Tablet (Singulair) Take 1 Tablet by mouth in the morning. 90 Tablet 3 3 Active Additional Information Patient not taking.Reported on 11/13/2023 Trelegy Ellipta 200-62.5-25 MCG/ACT Aerosol Powder Breath Activated (Fluticasone-Umecli dinium-Vilanterol) Inhale 1 Puff by mouth in the morning. 60 Blister Dosing Unit 11 3 Active Furosemide 20 MG Oral Tablet (Lasix) take 1 tablet by mouth three times a week and 2 tablets by mouth ON ALL OTHER DAYS 180 Tablet 1 4 Active LORazepam 1 MG Oral Tablet (Ativan)Indications :Anxiety state,Generalized anxiety disorder take 1 tablet by mouth BEFORE BEDTIME 90 Tablet 4 Active Warfarin Sodium 5 MG Oral Tablet (Coumadin)Indicatio ns:Chronic anticoagulation Take 1 tablet (5.0mg) daily or as directed by Coumadin clinic 90 Tablet 3 4 Active Solifenacin Succinate 10 MG Oral Tablet (VESIcare) Take 1 Tablet by mouth in the morning. 90 Tablet 3 4 Active Nitrofurantoin Monohyd Macro 100 MG Oral Capsule (Macrobid)Indicatio ns:UTI symptoms Take 1 Capsule by mouth in the morning and 1 Capsule before bedtime. With food until gone. 14 Capsule 2 4 Active Additional Information Patient not taking.Reported on 02/18/2024 OneTouch Ultra In Vitro Strip (Glucose Blood)Indications:T ype 2 diabetes mellitus with hemoglobin A1c goal of less than 8.0% (HCC) TEST once daily E11.9 100 Strip 3 4 Active OneTouch Ultra In Vitro Strip (Glucose Blood)Indications:T ype 2 diabetes mellitus with hemoglobin A1c goal of less than 8.0% (HCC) TEST TWICE A DAY 200 Strip 2 4 04/30/20 24 Discontinued documented as of this encounter (statuses as of 04/30/2024) Active Problems Problem Noted Date Diagnosed Date [...] NEURO DZ 09/08/2009 Overview: Per Diabetes Taxonomy. rn long term care current use of anticoagulant therapy 0 06/15/2005 [...] as of this encounter (statuses as of 04/30/2024) Resolved Problems Problem Noted Date Diagnosed Date [...] as of this encounter (statuses as of 04/30/2024) Immunizations Name Administration Dates Next Due COVID-19 mRNA, LNP-s, No Pre serve, 2-Dose Series (Moderna) 01/08/2021,12/06/2020 Covid-19, Mrna, Lnp-s, Pf, B ivalent, 30 Mcg, IM, 12 yrs and above (Pfizer) 08/07/2022 Pneumococcal Conjugate Vacc, 13 Valent (Prevnar) 04/13/2015 Pneumococcal Polysaccharide PPV23 (Pneumovax) 08/22/2016 Seasonal Influenza, PF, 6 M & above, IM , (FluLaval or Fluzone) 09/01/2020,08/17/2019,07/25/2018,08/12 Seasonal Influenza, Quadriva lent Hd (Fluzone Hd) 09/12/2023,09/11/2022,08/04/2021 Seasonal Influenza, Quadriva lent, No Preserve, IM 08/12/2015 Seasonal Influenza, Split, I IV3, With Preserve, Inj 08/22/2016,08/13/2014,08/11/2013,11/0 04/2012,08/20/2011,09/08/2010,08/01/20 09,08/11/2008,08/13/2007 TDAP (age 10 and older)(Boostrix) [...] Telephone Encounter - Padmini Raza LPN - 04/30/2024 8:46 AM EDT If you agree could you please send a RX for One touch ultra strips Sig check once a day Insurance won't pay for 2 a day due to not being on insulin. documented in this encounter Plan of Treatment Upcoming Encounters Date Type Department Care Team (Late st Contact Info) Description 05/18/2024 11:50 AM EDT 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 Pharmacy, [place] [address] [address] Milagros [facility] [address] [facility] [place] [address] 05/20/2024 12:20 PM EDT Office Visit [facility] [address] [facility] [phone] Duong Looney MD [address] [place] [address] 08/19/2024 1:30 PM EDT Office Visit Urology, [facility] [address] [place] [address] Jeremy Vital MD [address] [place] [address] Health Maintenance Due Date Last Done Comments DXA Scan 01/29/2011 01/29/2006, 01/29/2006 Zoster Vaccines (2 of 3) 05/14/2014 03/19/2014, 03/2014 Depression Screening 02/15/2023 02/15/2022 COVID-19 Vaccine (2022-2 4 season) 2024 09/27/2023, 08/07/2022, 01/08/2021, Additional history exists O2 ASSESSMENT COMPLETED IN P AST YEAR FOR COPD 11/18/2024 11/18/2023 Influenza Vaccine (FLU shot) Completed 12/2022, 09/11/2022, 08/04/2021, Additional history exists documented as of this encounter Medical Devices Not on filedocumented as of this encounter Visit Diagnoses Diagnosis Type 2 diabetes mellitus with hemoglobin A1c goal of less than 8.0% (HCC) documented in this encounter Advance Directives * No Code Status (Latest Code Status on File) Date Activated Date Inactivated Comments 10/18/2004 9:59 AM 10/18/2004 10:59 AM Care Teams Linotype Operator Relationship Specialty Start Date End Date Duong Looney MD [address] [place] [address] PCP - General 07/31/00 documented as of this encounter
--- OUTSIDE RECORDS SUMMARY | 2024-05-30 11:47 | External Medical Summary | Summary of Care ---
Author Name Unknown Organization [facility] Address [address] [place] [place] [address] Phone [phone] Care Team Providers Care Fountain Vending Mechanic Name Role Phone Duong Looney MD Primary Care Provider [phone] Reason for Visit * Reason Onset Date Comments Test Results 02/19/2024 Encounter Details Date Type Department Care Team (Late st Contact Info) Description 02/19/2024 Telephone Cardiology, [facility] [address] [place] [address] Zulema Werner CRNP [address] [place] [address] Test Results Allergies Active Allergy Reactions Criticality Noted Date Comments Adhesive Tape 03/11/2003 redness Latex 01/18/2005 rash Lisinopril Cough Low 03/18/2014 Penicillins 07/14/1999 swelling Prednisone 04/20/2005 Pt says it makes her "bleed into her intestines" documented as of this encounter (statuses as of 02/27/2024) Medications Medication Sig Dispensed Refills Start Date End Date Status Blood Glucose Monitoring Suppl (Sicel TechnologiesTOUCH ULTRA 2) w/Device KITIndications:Type 2 diabetes mellitus with hemoglobin A1c goal of less than 8.0% ([facility]) Use as directed to test blood sugar twice daily E11.9 1 Kit 0 06/26/2017 Active ferrous sulfate (FEOSOL) 325 (65 FE) MG Tablet Take 1 Tab by mouth 2 times a day. 60 Tab 0 04/06/2020 Active Acetaminophen 500 MG Oral Tablet (TYLENOL) Take 2 Tablets by mouth every 6 hours as needed for Pain, Mild. 100 Tab 0 08/02/2020 Active PreserVision AREDS 2+Multi Vit Oral Capsule Take 2 Caps by mouth once for 1 dose. 60 Cap 0 01/31/2021 Active Diclofenac Sodium 1 % External Gel (Voltaren)Indications :DM type 2 causing neurological disease ([facility]) Apply topically to affected area every 6 hours as needed for Other (burning hands). Apply to hands 150 g 11 11/14/2021 Active Additional Information Patient not taking.Reported on 02/18/2024 Nystatin [id number] UNIT/GM External Powder ([facility])Indications:C andidal skin infection APPLY TOPICALLY TO AFFECTED AREA 2 TIMES A DAY TO PANNUS FOLDS 60 g 5 03/14/2022 Active OneTouch Ultra Blue In Vitro Strip (Glucose Blood)Indications:Typ e 2 diabetes mellitus with hemoglobin A1c goal of less than 8.0% ([facility]) TEST TWICE DAILY DX E11.9 200 Strip 1 05/21/2022 Active Loperamide HCl 2 MG Oral Capsule (Imodium) Take 1 Capsule by mouth as needed for Diarrhea. 0 Active Albuterol Sulfate HFA 108 (90 Base) MCG/ACT Inhalation Aerosol SolutionIndications:A sthma with severity to be determined inhale 2 puffs by mouth and INTO THE LUNGS every 4 hours if needed for wheezing 18 g 5 10/09/2023 Active Additional Information Patient not taking.Reported on 02/18/2024 Atorvastatin Calcium 10 MG Oral Tablet (Lipitor)Indications: Hyperlipidemia with target LDL less than 100 Take 1 Tablet by mouth at bedtime. 90 Tablet 2 10/09/2023 Active Fluticasone Propionate 50 MCG/ACT Nasal Suspension (Flonase) Administer 2 Sprays into each nostril in the morning. 16 g 3 10/09/2023 Active Additional Information Patient not taking.Reported on 02/18/2024 Gabapentin 300 MG Oral Capsule (Neurontin)Indication s:Type 2 diabetes mellitus with diabetic neuropathy, unspecified whether prison insulin use ([facility]),Restless leg syndrome take 1 capsule by mouth [...] IF TOLERATED 180 Tablet 1 10/09/2023 Active Additional Information Patient not taking.Reported on 11/18/2023 Montelukast Sodium 10 MG Oral Tablet (Singulair) Take 1 Tablet by mouth in the morning. 90 Tablet 3 10/09/2023 Active Additional Information Patient not taking.Reported on [...] by mouth BEFORE BEDTIME 90 Tablet 0 11/18/2023 Active Warfarin Sodium 5 MG Oral Tablet (Coumadin)Indications :Chronic anticoagulation Take 1 tablet (5.0mg) daily or as directed by Coumadin clinic 90 Tablet 3 11/18/2023 Active Solifenacin Succinate 10 MG Oral Tablet (VESIcare) Take 1 Tablet by mouth in the morning. 90 Tablet 3 02/10/2024 Active Nitrofurantoin Monohyd Macro 100 MG Oral Capsule (Macrobid)Indications :UTI symptoms Take 1 Capsule by mouth in the morning and 1 Capsule before bedtime. With food until gone. 14 Capsule 2 02/10/2024 Active Additional Information Patient not taking.Reported on 02/18/2024 documented as of this encounter (statuses as of 02/27/2024) Active Problems Problem Noted Date Diagnosed Date [...] NEURO DZ 09/08/2009 Overview: Per Diabetes Taxonomy. 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 0 06/15/2005 [...] as of this encounter (statuses as of 02/27/2024) Resolved Problems Problem Noted Date Diagnosed Date Resolved Date keno terminal operator current use of ant icoagulant therapy 11/25/2020 [...] as of this encounter (statuses as of 02/27/2024) Immunizations Name Administration Dates Next Due COVID-19 [...] in the Last Year Never true 05/18/2020 Sex and Gender Information Value Date Recorded Sex Assigned at Female 03/10/2019 1:59 PM EDT Gender Identity Female 03/10/2019 1:59 PM EDT Sexual Orientation Straight 03/10/2019 1: 59 PM EDT Job Start Date Occupation Industry Not on file Not on file Not on file documented as of this encounter Miscellaneous Notes * Telephone Encounter - Vannesa Petersen CMA - 02/27/2024 1:58 PM EDT Letter mailed. * Telephone Encounter - Vannesa Petersen CMA - 02/19/2024 9:02 AM EDT My g sent. * Telephone Encounter - Vannesa Petersen CMA - 02/19/2024 9:01 AM EDT ----- Message from CELINA Causey sent at 02/19/2024 8:06 AM EDT ----- Renal function improved. Would not recommend any medication changes at this time. documented in this encounter Plan of Treatment Upcoming Encounters Date Type Department Care Team (Late st Contact Info) Description 03/03/2024 11:00 AM EDT Office Visit Podiatry [facility] [address] [place] [address] Keila Sargent DPM [address] [facility] [place] [address] 03/25/2024 1:00 PM EDT 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 Pharmacy, [place] [address] [facility], [place] [address] [place] [facility] [address] [facility], [place] [address] 05/18/2024 12:20 PM EDT Office Visit Family Practice, [place] [address] [facility], [place] [phone] Duong Looney MD [address] [place] [facility] [place] [address] 08/19/2024 1:30 PM EDT Office Visit Urology, [facility] [place] [address] Jeremy Vital MD [address] [facility] [address] [place] [address] Health Maintenance Due Date Last Done Comments DXA Scan 01/29/2011 01/29/2006, 01/29/2006 Zoster Vaccines (2 of 3) 05/14/2014 03/19/2014, 03/2014 Depression Screening 02/15/2023 02/15/2022 COVID-19 Vaccine ( - 2022-2 4 season) 2023 08/07/2022, 01/08/2021, 12/06/2020 O2 ASSESSMENT COMPLETED IN P AST YEAR FOR COPD 11/18/2024 11/18/2023 Influenza Vaccine (FLU shot) Completed 12/2022, 09/11/2022, 08/04/2021, Additional history exists documented as of this encounter Medical Devices Not on filedocumented as of this encounter Advance Directives Latest Code Status on File Code Status Date Activated Date Inactivated Comments None 10/18/2004 9:59 AM 10/18/2004 10:59 AM Care Teams Fountain Vending Mechanic Relationship Specialty Start Date End Date Duong Looney MD [address] [facility] [place] [id number] PCP - General 07/31/00 documented as of this encounter
--- OUTSIDE RECORDS SUMMARY | 2024-05-30 11:47 | External Medical Summary ---
Author Name Unknown Address Unknown Organization : Laboratory Report Ordering Provider Test Date Status PARESH DEE 03/25/2024 13:06:40 Final Therapeutic ranges for non-o perative patients:
Prophylaxsis/treatment of DVT: (Range:2.0-3.0)
Treatment of pulmonary embolism:(Range:2.0-3.0)
Prevention of systemic embolism from:
-tissue heart valves
-acute myocardial infarction
-valvular heart disease
-atrial fibrillation
(Range: 2.0-3.0)
Mechanical prosthetic valves: (Range: 2.5-3.5) Observation Date Value Abnormality Reference (Units ) Status INR in Capillary blood by Coagulation assay 03/25/2024 13:06:40 3.0 (INR) Final Performing Location
--- OUTSIDE RECORDS SUMMARY | 2024-05-30 11:47 | External Medical Summary | Summary of Care ---
Author Name Unknown Organization [facility] Address [address] [place] [address] Phone [phone] Care Team Providers Care Can Cleaner Name Role Phone Duong Looney MD Primary Care Provider [phone] Reason for Visit * Reason Comments Dosage Adjustment In Person (Anticoag Cl inic) Encounter Details Date Type Department Care Team (Latest Contact Info) Description 05/18/2024 11:50 AM EDT 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 Pharmacy, [place] [address] [place] [address] [facility] [address] [place] [address] 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 management encounter*; Personal history of TIA (transient ischemic attack) Allergies Active Allergy Reactions Criticality Noted Date Comments Adhesive Tape 03/11/2003 redness Latex 01/18/2005 rash Lisinopril Cough Low 03/18/2014 Penicillins 07/14/1999 swelling Prednisone 04/20/2005 Pt says it makes her "bleed into her intestines" documented as of this encounter (statuses as of 05/18/2024) Medications Medication Sig Dispensed Refills Start Date End Date Status Blood Glucose Monitoring Suppl ([facility] LaboratoryTOUCH ULTRA 2) w/Device KITIndications:Type 2 diabetes mellitus with hemoglobin A1c goal of less than 8.0% ([facility]) Use as directed to test blood sugar twice daily E11.9 1 Kit 06/26/2017 Active ferrous sulfate (FEOSOL) 325 (65 FE) MG Tablet Take 1 Tab by mouth 2 times a day. 60 Tab 04/06/2020 Active Acetaminophen 500 MG Oral Tablet (TYLENOL) Take 2 Tablets by mouth every 6 hours as needed for Pain, Mild. 100 Tab 08/02/2020 Active PreserVision AREDS 2+Multi Vit Oral Capsule Take 2 Caps by mouth once for 1 dose. 60 Cap 01/31/2021 Active Diclofenac Sodium 1 % External Gel (Voltaren)Indications :DM type 2 causing neurological disease (HCC) Apply topically to affected area every 6 hours as needed for Other (burning hands). Apply to hands 150 g 11 11/14/2021 Active Additional Information Patient not taking.Reported on 02/18/2024 Nystatin [id number] UNIT/GM External Powder ([facility])Indications:C andidal skin infection APPLY TOPICALLY TO AFFECTED AREA 2 TIMES A DAY TO PANNUS FOLDS 60 g 5 03/14/2022 Active Loperamide HCl 2 MG Oral Capsule [...] diabetes mellitus with diabetic neuropathy, unspecified whether longterm insulin use (HCC),Restless leg syndrome take 1 [...] goal of less than 8.0% ([facility]) take 1 tablet by mouth every morning [...] Additional Information Patient not taking.Reported on 02/18/2024 JoppelTouch Ultra In Vitro Strip (Glucose Blood)Indications:Typ e 2 diabetes mellitus with hemoglobin A1c goal of less than 8.0% ([facility]) TEST once daily E11.9 100 Strip 3 04/30/2024 Active documented as of this encounter (statuses as of 05/18/2024) Active Problems Problem Noted Date Diagnosed Date [...] NEURO DZ 09/08/2009 Overview: Per Diabetes Taxonomy. 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 current use of ant icoagulant therapy 11/25/2020 [...] as of this encounter (statuses as of 05/18/2024) Immunizations Name Administration Dates Next Due COVID-19 [...] as of this encounter Progress Notes * Cammie Salinas RPh - 05/18/2024 11:43 AM EDT Medication Therapy Disease Management - 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 Patient: Keila Vital | : 1935 Subjective Patient-Reported Symptoms: Patient Findings Negatives: Signs/symptoms of thrombosis, Signs/symptoms of bleeding, Change in health, Change in alcohol use, Change in activity, Upcoming invasive procedure, Missed doses, Extra doses, Change in medications, Change in diet/appetite, Bruising Objective Current Warfarin Dose As of 05/18/2024 Warfarin maintenance plan: 5 mg (5 mg x 1) every day INR Result As of 05/18/2024 INR goal: 2.0-3.0 INR used for dosin.3 (05/18/2024) Assessment & Plan Warfarin Plan As of 05/18/2024 Full warfarin instructions: 5 mg every day No change documented: Cammie Salinas jose Next INR check: 07/14/2024 Repeat PT/INR in 8 week(s) Weekly dose: not changed Additional Dosing Information: Description (5mg tabs-takes in AM) Cammie Salinas [facility] Clinical Pharmacist 05/18/2024, 11:43 AM documented in this encounter Plan of Treatment Upcoming Encounters Date Type Department Care Team (Late st Contact Info) Description 05/20/2024 12:20 PM EDT Office Visit Family [facility], [place] [address] [place] [facility] [place] [address] Duong Looney MD [address] [place] [address] 07/14/2024 11:50 AM EDT 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 Pharmacy, [place] [address] [place] [address] [facility] [address] [place] [facility] [place] [address] 08/19/2024 1:30 PM EDT Office Visit Urology, [facility] [address] [facility] [place] [address] Jeremy Vital MD [address] [place] [address] Health Maintenance Due Date Last Done Comments DXA Scan 01/29/2011 01/29/2006, 01/29/2006 Zoster Vaccines (2 of 3) 05/14/2014 03/19/2014, 03/2014 Depression Screening 02/15/2023 02/15/2022 COVID-19 Vaccine (2022-2 4 season) 2024 09/27/2023, 08/07/2022, 01/08/2021, Additional history exists Influenza Vaccine (FLU shot) (#1) 2024 09/12/2023, 09/11/2022, 08/04/2021, Additional history exists O2 ASSESSMENT COMPLETED IN P AST YEAR FOR COPD 11/18/2024 11/18/2023 documented as of this encounter Medical Devices Not on filedocumented as of this encounter Procedures Procedure Name Priority Date/Time Associated Diagnosis Comments INR FINGERSTICK, POINT OF CARE STAT 05/18/2024 11:54 AM EDT Personal history of TIA (transient ischemic attack) 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 management encounter documented in this encounter Results * INR FINGERSTICK, POINT OF CARE (05/18/2024 11:54 AM EDT) Fingerstick INR 2.3 INR 12:06 PM EDT [facility] Blood 05/18/2024 11:5 4 AM EDT 05/18/2024 12:06 PM EDT Narrative [facility] - 05/18/2024 12:06 PM EDT Therapeutic ranges for non-operative patients: Prophylaxsis/treatment of DVT: (Range:2.0-3.0) Treatment of pulmonary embolism:(Range:2.0-3.0) Prevention of systemic embolism from: -tissue heart valves -acute myocardial infarction -valvular heart disease -atrial fibrillation (Range: 2.0-3.0) Mechanical prosthetic valves: (Range: 2.5-3.5) Bhakti Ogden [facility] LAB POINT OF C ARE TEST DOCKED DEVICE UNSOLICITED RESULTS [facility] [address] [place] [id number] documented in this encounter Visit Diagnoses Diagnosis 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 management encounter- Primary Encounter for therapeutic drug monitoring Personal history of TIA (transient ischemic attack) Transient ischemic attack (TIA), and cerebral infarction without residual deficits documented in this encounter Advance Directives * No Code Status (Latest Code Status on File) Date Activated Date Inactivated Comments 10/18/2004 9:59 AM 10/18/2004 10:59 AM Care Teams Can Cleaner Relationship Specialty Start Date End Date Duong Looney MD [address] [place] [id number] PCP - General 07/31/00 documented as of this encounter
--- OUTSIDE RECORDS SUMMARY | 2024-05-30 11:47 | External Medical Summary ---
Author Name Unknown Address Unknown Organization : Laboratory Report Ordering Provider Test Date Status PARESH DEE 05/18/2024 11:54:36 Final Therapeutic ranges for non-o perative patients:
Prophylaxsis/treatment of DVT: (Range:2.0-3.0)
Treatment of pulmonary embolism:(Range:2.0-3.0)
Prevention of systemic embolism from:
-tissue heart valves
-acute myocardial infarction
-valvular heart disease
-atrial fibrillation
(Range: 2.0-3.0)
Mechanical prosthetic valves: (Range: 2.5-3.5) Observation Date Value Abnormality Reference (Units ) Status INR in Capillary blood by Coagulation assay 05/18/2024 11:54:36 2.3 (INR) Final Performing Location
--- OUTSIDE RECORDS SUMMARY | 2024-05-30 11:47 | External Medical Summary | Summary of Care ---
Author Name Unknown Organization [facility] Address [address] [place] [address] Phone [phone] Care Team Providers Care Dredge Hand Name Role Phone Duong Looney MD Primary Care Provider [phone] Encounter Details Date Type Department Care Team (Late st Contact Info) Description 05/20/2024 Orders Only Outcomes Research Department [address] [place] [address] Becky Tejada CHRA Allergies Active Allergy Reactions Criticality Noted Date Comments Adhesive Tape 03/11/2003 redness Latex 01/18/2005 rash Lisinopril Cough Low 03/18/2014 Penicillins 07/14/1999 swelling Prednisone 04/20/2005 Pt says it makes her "bleed into her intestines" documented as of this encounter (statuses as of 05/20/2024) Medications Medication Sig Dispensed Refills Start Date End Date Status Blood Glucose Monitoring Suppl (PogoappTOUCH ULTRA 2) w/Device KITIndications:Type 2 diabetes mellitus with hemoglobin A1c goal of less than 8.0% ([facility]) Use as directed to test blood sugar [...] diabetes mellitus with diabetic neuropathy, unspecified 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 (HCC),Restless leg syndrome take 1 [...] hemoglobin A1c goal of less than 8.0% ([facility]) take 1 tablet by mouth every morning [...] hemoglobin A1c goal of less than 8.0% ([facility]) TEST once daily E11.9 100 Strip 3 04/30/2024 Active Nystatin [id number] UNIT/GM External Powder ([facility])Indications:C andidal skin infection APPLY TOPICALLY TO AFFECTED [...] Problem Noted Date Diagnosed Date 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 Date 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/25/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 [...] Description 07/14/2024 11:50 AM EDT 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 Pharmacy, [place] [address] [place] [facility] [place] [address] [place] [facility] [address] [place] [place] [address] 08/19/2024 1:30 PM EDT Office Visit Urology, [facility] [address] [place] [address] Jeremy Vital MD [address] [place] [address] Health Maintenance Due Date Last Done Comments Zoster Vaccines (2 of 3) 05/14/2014 03/19/2014, 03/2014 COVID-19 Vaccine ( season) 2024 09/27/2023, 08/07/2022, 01/08/2021, Additional history exists Influenza Vaccine (FLU shot) (#1) 2024 09/12/2023, 09/11/2022, 08/04/2021, Additional history exists O2 ASSESSMENT COMPLETED IN PAST YEAR FOR COPD 11/18/2024 11/18/2023 DXA Scan 05/19/2025 01/29/2006, 01/29/2006 Postp oned from 01/29/2011 (Patient Declined After Education) Depression Screening 05/20/2025 05/20/2024, 02/16/20 22 documented as of this encounter Medical Devices Not on filedocumented as of this encounter Advance Directives * No Code Status (Latest Code Status on File) Date Activated Date Inactivated Comments 10/18/2004 9:59 AM 10/18/2004 10:59 AM Care Teams Dredge Hand Relationship Specialty Start Date End Date Duong Looney MD [address] [place] [address] PCP - General 07/31/00 documented as of this encounter
--- OUTSIDE RECORDS SUMMARY | 2024-05-30 11:47 | External Medical Summary | Summary of Care ---
Author Name Unknown Organization [facility] Address [address] [place] [address] Phone [phone] Care Team Providers Care Drama Teacher Name Role Phone Neema Looney MD Primary Care Provider [phone] Reason for Visit * Reason Comments eRx-Medication Refill Encounter Details Date Type Department Care Team (Late st Contact Info) Description 05/18/2024 Refill [facility] [address] [place] [address] Neema Looney MD [address] [place] [address] Candidal skin infection Allergies Active Allergy Reactions Criticality Noted Date Comments Adhesive Tape 03/11/2003 redness Latex 01/18/2005 rash Lisinopril Cough Low 03/18/2014 Penicillins 07/14/1999 swelling Prednisone 04/20/2005 Pt says it makes her "bleed into her intestines" documented as of this encounter (statuses as of 05/18/2024) Medications Medication Sig Dispensed Refills Start Date End Date Status Blood Glucose Monitoring Suppl ([employer] PartnersTOUCH ULTRA 2) w/Device KITIndications:Type 2 diabetes mellitus with hemoglobin A1c goal of less than 8.0% ([facility]) Use as directed to test blood [...] Additional Information Patient not taking.Reported on 02/18/2024 Loperamide HCl 2 MG Oral Capsule (Imodium) [...] hemoglobin A1c goal of less than 8.0% ([facility]) take 1 tablet by mouth every [...] hemoglobin A1c goal of less than 8.0% ([facility]) TEST once daily E11.9 100 Strip 3 4 Active Nystatin [id number] UNIT/GM External Powder ([facility])Indications :Candidal skin infection APPLY TOPICALLY TO AFFECTED AREA TWICE A DAY TO PANNUS FOLDS 60 g 4 Active Nystatin [id number] UNIT/GM External Powder ([facility])Indications :Candidal skin infection APPLY TOPICALLY TO AFFECTED AREA 2 TIMES A DAY TO PANNUS FOLDS 60 g 5 2 05/18/20 24 Discontinued documented as of this encounter [...] NEURO DZ 09/08/2009 Overview: Per Diabetes Taxonomy. 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 [...] encounter Miscellaneous Notes * Telephone Encounter - Neema Looney MD - 05/18/2024 7:22 PM EDTSigned Prescriptions: Disp Refills Nystatin [id number] UNIT/GM External Powder (N*60 g 0 Sig: APPLY TOPICALLY TO AFFECTED AREA TWICE A DAY TO PANNUS FOLDS Authorizing Provider: NEEMA LOONEY * Telephone Encounter - Azalea Sweeney LPN - 05/18/2024 3:56 PM EDTPending Prescriptions: Disp Refills Nyamyc [id number] UNIT/GM External Powder [Pha*60 g 0 Sig: APPLY TOPICALLY TO AFFECTED AREA TWICE A DAY TO PANNUS FOLDS * Telephone Encounter - Abdoulaye Bennett - 05/18/2024 1:05 PM EDTPending Prescriptions: Disp Refills Nyamyc [id number] UNIT/GM External Powder [Pha*60 g 0 Sig: APPLY TOPICALLY TO AFFECTED AREA TWICE A DAY TO PANNUS FOLDS documented in this encounter Plan of Treatment Upcoming Encounters Date Type Department Care Team (Late st Contact Info) Description 05/20/2024 12:20 PM EDT Office Visit [place] [address] [facility] [place] [phone] Neema Looney MD [address] [place] [facility] [place] [address] 07/14/2024 11:50 AM EDT [facility], [place] [address] [facility] [address] [facility] [address] [place] [facility] [place] [address] 08/19/2024 1:30 PM EDT Office Visit Urology, [facility] [address] [place] [address] Jeremy Vital MD [address] [place] [...] as of this encounter Visit Diagnoses Diagnosis Candidal skin infection Candidiasis of skin and nails documented in this encounter Advance Directives * No Code Status (Latest Code Status on File) Date Activated Date Inactivated Comments 10/18/2004 9:59 AM 10/18/2004 10:59 AM Care Teams Drama Teacher Relationship Specialty Start Date End Date Neema Looney MD [address] [facility] [place] [address] PCP - General 07/31/00 documented as of this encounter
--- OUTSIDE RECORDS SUMMARY | 2024-05-30 11:47 | External Medical Summary | Summary of Care ---
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 Allergies Active Allergy Reactions Criticality Noted Date Comments Adhesive Tape 03/11/2003 redness Latex 01/18/2005 rash Lisinopril Cough Low 03/18/2014 Penicillins 07/14/1999 swelling Prednisone 04/20/2005 Pt says it makes her "bleed into her intestines" documented as of this encounter (statuses as of 03/25/2024) Medications Medication Sig Dispensed Refills Start Date End Date Status Blood Glucose Monitoring Suppl ([employer] ULTRA 2) w/Device KITIndications:Type 2 diabetes mellitus with hemoglobin A1c goal of less than 8.0% ([facility]) Use as directed to test blood sugar [...] (Voltaren)Indications :DM type 2 causing neurological disease ([facility]) Apply topically to affected area every 6 hours as needed for Other (burning hands). Apply to hands 150 g 11 11/14/2021 Active Additional Information Patient not taking.Reported on 02/18/2024 Nystatin [id number] UNIT/GM External Powder ([facility])Indications:C andidal skin infection APPLY TOPICALLY TO AFFECTED AREA 2 TIMES A DAY TO PANNUS FOLDS 60 g 5 03/14/2022 Active OneTouch Ultra Blue In Vitro Strip (Glucose Blood)Indications:Typ e 2 diabetes mellitus with hemoglobin A1c goal of less than 8.0% ([facility]) TEST TWICE DAILY DX E11.9 200 Strip [...] diabetes mellitus with diabetic neuropathy, unspecified whether alf insulin use ([facility]),Restless leg syndrome take 1 capsule by mouth [...] as of this encounter (statuses as of 03/25/2024) Active Problems Problem Noted Date Diagnosed Date [...] DZ 09/08/2009 Overview: Per Diabetes Taxonomy. 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 11/25/2020 [...] as of this encounter (statuses as of 03/25/2024) Immunizations Name Administration Dates Next Due COVID-19 [...] Exposure: Past Smokeless Tobacco: Never Comments:quit in 1982 Alcohol Use Standard Drinks/Week Comments No 0 [...] Progress Notes * Cammie Salinas RPh - 03/25/2024 1:02 PM EDT Medication Therapy Disease Management - 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 Patient: Keila Vital | : 1935 Subjective Patient-Reported Symptoms: Patient Findings Negatives: Signs/symptoms of thrombosis, Signs/symptoms of bleeding, Change in health, Change in alcohol use, Change in activity, Upcoming invasive procedure, Missed doses, Extra doses, Change in medications, Change in diet/appetite, Bruising Objective Current Warfarin Dose As of 03/25/2024 Warfarin maintenance plan: 5 mg (5 mg x 1) every day INR Result As of 03/25/2024 INR goal: 2.0-3.0 INR used for dosin.0 (03/25/2024) Assessment & Plan Warfarin Plan As of 03/25/2024 Full warfarin instructions: 5 mg every day No change documented: Cammie Salinas RPh Next INR check: 05/18/2024 Repeat PT/INR in 7 week(s) Weekly dose: not changed Additional Dosing Information: Description (5mg tabs-takes in AM) Cammie Salinas RPh Clinical Pharmacist 03/25/2024, 1:02 PM documented in this encounter Plan of Treatment Upcoming Encounters Date Type Department Care Team (Late st Contact Info) Description 05/18/2024 11:50 AM EDT 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 Pharmacy[address] [place] [address] [facility] [address] [facility] [address] 05/18/2024 12:20 PM EDT Office Visit [facility], [place] [address] [facility] [phone] Duong Looney MD [address] [facility] [address] 08/19/2024 1:30 PM EDT Office Visit Urology, [facility] [address] [facility] [place] [address] Jeremy Vital MD [address] [place] [address] [place] [address] Health Maintenance Due Date Last Done Comments DXA Scan 01/29/2011 01/29/2006, 01/29/2006 Zoster Vaccines (2 of 3) 05/14/2014 03/19/2014, 03/2014 Depression Screening 02/15/2023 02/15/2022 COVID-19 Vaccine (4 - 2022-2 4 season) 2023 08/07/2022, 01/08/2021, 12/06/2020 O2 ASSESSMENT COMPLETED IN P AST YEAR FOR COPD 11/18/2024 11/18/2023 Influenza Vaccine (FLU shot) Completed 12/2022, 09/11/2022, 08/04/2021, Additional history exists documented as of this encounter Medical Devices Not on filedocumented as of this encounter Procedures Procedure Name Priority Date/Time Associated Diagnosis Comments INR FINGERSTICK, POINT OF CARE STAT 03/25/2024 1:06 PM EDT Personal history of TIA (transient ischemic attack) 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 documented in this encounter Results * INR FINGERSTICK, POINT OF CARE (03/25/2024 1:06 PM EDT) Fingerstick INR 3.0 INR 1:09 PM EDT [facility] Blood 03/25/2024 1:06 PM EDT 03/25/2024 1:09 PM EDT Narrative [facility]- - 03/25/2024 1:09 PM EDT Therapeutic ranges for non-operative patients: Prophylaxsis/treatment of DVT: (Range:2.0-3.0) Treatment of pulmonary embolism:(Range:2.0-3.0) Prevention of systemic embolism from: -tissue heart valves -acute myocardial infarction -valvular heart disease -atrial fibrillation (Range: 2.0-3.0) Mechanical prosthetic valves: (Range: 2.5-3.5) [facility] POINT OF C ARE TEST DOCKED DEVICE UNSOLICITED RESULTS [facility] [address] [place] [address] documented in this encounter Visit Diagnoses Diagnosis Personal history of TIA (transient ischemic attack)- Primary Transient ischemic attack (TIA), and cerebral infarction without residual deficits 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 management encounter Encounter for therapeutic drug monitoring 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
--- OUTSIDE RECORDS SUMMARY | 2024-05-30 11:47 | External Medical Summary ---
Author Name Unknown Address Unknown Organization K01:[facility] [address] [facility] [address] Laboratory Report Ordering Provider Test Date Status NOE BETHEA 05/20/2024 14:21:42 Final Observation Date Value Abnormality Reference (Units ) Status HbA1C 05/20/2024 14:21:42 7.2 Above high normal 4. 0-5.6 (%) Final The use of HbA1c to monitor glycemic status is based on normal hemoglobin and HbA composition. This test should not be used in patients with abnormal hemoglobin that affects the half life of the red blood cell or the in vivo glycation rates. Glucose, estimated average 05/20/2024 14:21:42 160 Above high normal <126 (mg/dL) Luis leyva Performing Location [facility] [place] [address] [facility] [address]
--- OUTSIDE RECORDS SUMMARY | 2024-05-30 11:47 | External Medical Summary | Summary of Care ---
Author Name Unknown Organization [facility] Address [address] [place] [address] Phone [phone] Care Team Providers Care Babbitter Name Role Phone Duong Looney MD Primary Care Provider [phone] Reason for Visit * Reason Onset Date Comments Appointment 02/28/2024 Encounter Details Date Type Department Care Team (Late st Contact Info) Description 02/28/2024 Telephone Podiatry, [facility] [address] [facility] [place] [id number] Keila Sargent DPM [address] [facility] [place] [address] Appointment Allergies Active Allergy Reactions Criticality Noted Date Comments Adhesive Tape 03/11/2003 redness Latex 01/18/2005 rash Lisinopril Cough Low 03/18/2014 Penicillins 07/14/1999 swelling Prednisone 04/20/2005 Pt says it makes her "bleed into her intestines" documented as of this encounter (statuses as of 02/28/2024) Medications Medication Sig Dispensed Refills Start Date End Date Status Blood Glucose Monitoring Suppl (Iken SolutionsTOUCH ULTRA 2) w/Device KITIndications:Type 2 diabetes mellitus with hemoglobin A1c goal of less than 8.0% ([facility]) Use as directed to test [...] type 2 causing neurological disease ([facility]) Apply topically to affected area every 6 hours as needed for Other (burning hands). 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 ([facility]),Restless leg syndrome take 1 capsule [...] as of this encounter (statuses as of 02/28/2024) Active Problems Problem Noted Date Diagnosed Date [...] as of this encounter (statuses as of 02/28/2024) Resolved Problems Problem Noted Date Diagnosed Date 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 Contreras per message below. Patients daughter angry that she was scheduled incorrectly. I did apologize to her and patient rescheduled with with Dr. Rivera added to wait list for sooner appt and mailed list of podiatrists that are outside of [facility] that may be taking on new patients. * Telephone Encounter - Keila Sargent DPM - 02/28/2024 2:22 PM EDT Calluses is routine care. Please give list of providers. * Telephone Encounter - Keila Sargent DPM - 02/28/2024 11:08 AM EDT Please call pt to verify what appointment is for. If routine foot care, please cancel and give listof local nail care providers. documented in this encounter Plan of Treatment Upcoming Encounters Date Type Department Care Team (Late st Contact Info) Description 03/25/2024 1:00 PM EDT 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 Pharmacy, [place] [address] [facility] [address] [place] [address] [facility] [place] [address] 03/30/2024 12:30 PM EDT Office Visit Podiatry, [facility] [address] [place] [address] Dilip Rivera, [facility] [address] [place], [place] [phone] 05/18/2024 12:20 PM EDT Office Visit Family Practice, [place] [address] [place] [facility] [place] [phone] Duong Looney MD [address] [place] [facility] [place] [address] 08/19/2024 1:30 PM EDT Office Visit Urology, [facility] [address] [facility] [place] [address] Jeremy Vital MD [address] [facility] [address] [place] [address] Health Maintenance Due Date Last Done Comments DXA Scan 01/29/2011 01/29/2006, 01/29/2006 Zoster Vaccines (2 of 3) 05/14/2014 03/19/2014, 03/2014 Depression Screening 02/15/2023 02/15/2022 COVID-19 Vaccine (2022-2 4 season) 2023 08/07/2022, 01/08/2021, 12/06/2020 O2 [...] 9:59 AM 10/18/2004 10:59 AM Care Teams Babbitter Relationship Specialty Start Date End Date Duong Looney MD [address] [place] [address] PCP - General 07/31/00 documented as of this encounter
--- OUTSIDE RECORDS SUMMARY | 2024-05-30 11:47 | External Medical Summary ---
Author Name Unknown Address Unknown Organization K01:[facility] [place] - [address] [place] [address] Laboratory Report Ordering Provider Test Date Status NOE BETHEA 05/20/2024 14:21:42 Final Observation Date Value Abnormality Reference (Units ) Status BUN 05/20/2024 14:21:42 18 6-20 (mg/dL) Final Creatinine 05/20/2024 14:21:42 1.0 0.5-1.0 (mg/dL) Final Glomerular filtration rate/1.73 sq M.predicted [Volume Rate/Area] in Serum, Plasma or Blood by Creatinine-based formula (CKD-EPI) 05/20/2024 14:21:42 57 Below low normal >=60 (mL/min) Final eGFR is calculated based on the CKD-EPI 2020 equation Sodium 05/20/2024 14:21:42 142 135-146 (m mol/L) Final Potassium 05/20/2024 14:21:42 4.7 3.5-5.1 (m mol/L) Final Cl 05/20/2024 14:21:42 101 98-107 (mm ol/L) Final CO2 05/20/2024 14:21:42 28 22-32 (mmo l/L) Final Anion gap 05/20/2024 14:21:42 13 7-15 (mmol /L) Final Glucose 05/20/2024 14:21:42 113 70-120 (mg /dL) Final Calcium 05/20/2024 14:21:42 9.7 8.4-10.2 ( mg/dL) Final Performing Location [facility] [place] - [address] [place] [address]
--- OUTSIDE RECORDS SUMMARY | 2024-05-30 11:47 | External Medical Summary | Summary of Care ---
Author Name Unknown Organization [facility] Address [address] [place] [address] Phone [phone] Care Team Providers Care Electrolytic De Scaler Name Role Phone Duong Looney MD Primary Care Provider [phone] Reason for Visit * Reason Comments Follow Up R foot pain Encounter Details Date Type Department Care Team (Late st Contact Info) Description 03/09/2024 2:30 PM EDT Office Visit Podiatry, [facility] [address] [place] [address] Dilip Rivera, DPParvez [address] [place] [address] DM TYPE 2 CAUSING NEURO DZ*; Type II diabetes mellitus with peripheral circulatory disorder (HCC); Pre-ulcerative calluses Allergies Active Allergy Reactions Criticality Noted Date Comments Adhesive Tape 03/11/2003 redness Latex 01/18/2005 rash Lisinopril Cough Low 03/18/2014 Penicillins 07/14/1999 swelling Prednisone 04/20/2005 Pt says it makes her "bleed into her intestines" documented as of this encounter (statuses as of 03/09/2024) Medications Medication Sig Dispensed Refills Start Date End Date Status Blood Glucose Monitoring Suppl (meinKaufTOUCH ULTRA 2) w/Device KITIndications:Type 2 diabetes mellitus [...] (Voltaren)Indications :DM type 2 causing neurological disease ([facility]) Apply topically to affected area every 6 hours as needed for Other (burning hands). Apply to hands 150 g 11 11/14/2021 Active Additional Information Patient not taking.Reported on 02/18/2024 Nystatin [id number] UNIT/GM External Powder ([facility])Indications:C andidal skin infection APPLY TOPICALLY TO AFFECTED AREA 2 TIMES A DAY TO PANNUS FOLDS 60 g 5 03/14/2022 Active OneTouch Ultra Blue In Vitro Strip (Glucose Blood)Indications:Typ e 2 diabetes mellitus with hemoglobin A1c goal of less than 8.0% ([facility]) TEST TWICE DAILY DX E11.9 200 Strip [...] mellitus with diabetic neuropathy, unspecified whether 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 insulin use ([facility]),Restless leg syndrome take 1 capsule by mouth [...] as of this encounter (statuses as of 03/09/2024) Active Problems Problem Noted Date Diagnosed Date [...] NEURO DZ 09/08/2009 Overview: Per Diabetes Taxonomy. 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 Patient's daughter said a large plaque of callus tissue came off. Patient had a similar area on the left foot plantar lateral heel. Patient alert and oriented to person, place and time. 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 Obesity, BMI not known Pulmonary embolus (HCC) Statin intolerance 08/26/2013 Past Surgical History: Procedure Laterality Date ARTHROPLASTY KNEE HINGE PROSTHESIS 06/13/1999 b/l - doing well CATARACT SURGERY,COMPLEX one eye, now with implant COLONOSCOPY 01/2000 COLONOSCOPY 04/2007 nl DEXA SCAN/BONE MINERAL AXIAL 2005 repeat 5 yrs EGD, FLEXIBLE, DIAGNOSTIC 03/31/2020 duodenal ulcer, + H pylori / [facility] EGD, FLEXIBLE, DIAGNOSTIC 09/17/2021 Impacted food bolus removed / [facility] INCISION OF ANAL SPHINCTER 12/07/2003 Lateral internal sphincterotomy by Dr. Booker at [facility] LAP;W/HYSTERECTOMY 11/2004 with BSO for 1BG2 adenocarcinoma of uterus LIGATE/CUT OVIDUCT(S) REMOVE GALLBLADDER REPAIR LUMBAR HERNIA "years ago", disc deterioration Family History Problem Relation Age of Onset Heart Disorder Mother [place] at age 71 Hypertension Mother Heart Disorder Father CHF for years, at 82 Heart Disorder Brother ? condition No Past Hx None no breast/ovarian/colon cancer Heart Disorder Sister Social History Socioeconomic History Marital status: Spouse name: Jeffery Number of children: 3 Years of education: 12 Highest education level: Not on file Occupational History Occupation: retired Comment: ran [employer], enjoyed it, quit because of knees Tobacco Use Smoking status: Former Current packs/day: 0.00 Average packs/day: 2.0 packs/day for 37.0 years (74.0 ttl pk-yrs) Types: Cigarettes Start date: [birth year]/11/1945 Quit date: 11/11/1981 Years since quittin.3 Passive exposure: Past Smokeless tobacco: Never Tobacco comments: quit in 1981 Vaping Use Vaping Use: Never used Substance and Sexual Activity Alcohol use: No Drug use: No Sexual activity: Not Currently Partners: Male Other Topics Concern Service Not Asked Blood Transfusions Not Asked Caffeine Concern No Comment: decaf coffee Occupational Exposure Not Asked Hobby Hazards Not Asked Sleep Concern Yes Comment: with Trazadone, prescribed by Dr. Looney, Dr. Ham Stress Concern Not Asked Weight Concern Yes Comment: trying to lose weight Special Diet Yes Comment: not taking ca or MVI anymore - eat healthy, milk - none Back Care Not Asked Exercise Yes Comment: walking about 1 mile, gets winded, walks 3 times each week Bike Helmet Not Asked Seat Belt Yes Self-Exams Yes Comment: breast Social History Narrative Not on file Social Determinants of Health Financial Resource Strain: Not on file Food Insecurity: No Food Insecurity (05/18/2020) Hunger Vital Sign Worried About Running Out of Food in the Last Year: Never true Ran Out of Food in the Last Year: Never true Transportation Needs: Not on file Physical Activity: Not on file Stress: Not on file Social Connections: Not on file Intimate Partner Violence: Not on file Housing Stability: Not on file Current Outpatient Medications Medication Sig Dispense Refill Blood Glucose Monitoring Suppl ([employer] ULTRA 2) w/Device KIT Use as directed to test blood sugar twice daily E11.9 1 Kit 0 ferrous sulfate (FEOSOL) 325 (65 FE) MG Tablet Take 1 Tab by mouth 2 times a day. (Patient not taking: Reported on 09/11/2022) 60 Tab 0 Acetaminophen 500 MG Oral Tablet (TYLENOL) Take 2 Tablets by mouth every 6 hours as needed for Pain, Mild. 100 Tab 0 PreserVision AREDS 2+Multi Vit Oral Capsule Take 2 Caps by mouth once for 1 dose. 60 Cap 0 Diclofenac Sodium 1 % External Gel (Voltaren) Apply topically to affected area every 6 hours as needed for Other (burning hands). Apply to hands (Patient not taking: Reported on 02/18/2024) 150 g 11 Nystatin 130455 UNIT/GM External Powder ([facility]) APPLY TOPICALLY TO AFFECTED AREA 2 TIMES A DAY TO PANNUS FOLDS 60 g 5 OneTouch Ultra Blue In Vitro Strip (Glucose Blood) TEST TWICE DAILY DX E11.9 200 Strip 1 Loperamide HCl 2 MG Oral Capsule (Imodium) Take 1 Capsule by mouth as needed for Diarrhea. Albuterol Sulfate HFA 108 (90 Base) MCG/ACT Inhalation Aerosol Solution inhale 2 puffs by mouth andINTO THE LUNGS every 4 hours if needed for wheezing (Patient not taking: Reported on 02/18/2024) 18 g5 Atorvastatin Calcium 10 MG Oral Tablet (Lipitor) Take 1 Tablet by mouth at bedtime. 90 Tablet 2 Fluticasone Propionate 50 MCG/ACT Nasal Suspension (Flonase) Administer 2 Sprays into each nostril in the morning. (Patient not taking: Reported on 02/18/2024) 16 g 3 Gabapentin 300 MG Oral Capsule (Neurontin) take [...] by mouth twice a day IF TOLERATED (Patient not taking: Reported on 11/18/2023) 180 Tablet 1 Montelukast Sodium 10 MG Oral Tablet (Singulair) Take 1 Tablet by mouth in the morning. (Patient not taking: Reported on 11/13/2023) 90 Tablet 3 Trelegy Ellipta 200-62.5-25 MCG/ACT Aerosol Powder Breath Activated (Tjpqgiocepp-Fqfxhtxbbmpt-Ywpwdrdfsc) Inhale 1 Puff by mouth in the [...] by mouth in the morning. 90 Tablet3 Nitrofurantoin Monohyd Macro 100 MG Oral Capsule (Macrobid) Take 1 Capsule by mouth in the morning and 1 Capsule before bedtime. With food until gone. (Patient not taking: Reported on 02/18/2024) 14 Capsule 2 No current facility-administered medications for this visit. REVIEW OF SYSTEMS ROS EXAM: CONSTITUTIONAL: No change in weight, No weakness, No fatigue, and No fevers, sweats, or chills EXTREMITIES: No pain, redness or swelling on the joints SKIN/INTEGUMENTARY: No edema, No rash, and No itching NEUROLOGIC: Normal balance, No headaches, No seizures, and No weakness DERMATOLOGICAL Temperature: wnl Texture: smooth Turger:thin atrophic skin Scaling: mild Hair Distribution: absent Right foot Interdigital Maceration: - Left foot Interdigital Maceration: - Right foot Nails: no problems Left foot Nails: no problems Lesions: pre-ulcerative callused area posterior plantar heel VASCULAR EXAM Right foot Pulses: Dorsalis Pedis-1/4 palpable Left foot Pulses: Dorsalis Pedis- 1/4 palpable Right foot Subpapillary venous plexus filling time: within limits Left foot Subpapillary venous plexus filling time: within limits Right foot Posterior Tibial Pulse-0/4 non-palpable Left foot Posterior Tibial Pulse-0/4 non-palpable Right foot Edema: none Left foot Edema: none Right foot Cyanosis: - Left foot Cyanosis: - Right foot Telangiectasias: -present Left foot Telangiectasias: -present Right foot Rubor: - Left foot Rubor: - Right foot Varicosities: - Left foot Varicosities: - NEUROLOGICAL Right foot Posterior Tibial Nerve: insensate Left foot Posterior Tibial Nerve: insensate Right foot Deep Peroneal Nerve: insensate Left foot Deep Peroneal Nerve: insensate Right foot Sural Nerve: insensate Left foot Sural Nerve: insensate Right foot Superficial Peroneal Nerve:diminished Left foot Superficial Peroneal Nerve: diminished Baldwin Charu is 0/10 Right Vibratory: absent Left Vibratory:absent ORTHOPEDIC Muscles: Right inverters 5 Left inverters 5 Right everters: 5 Left everters: 5 Right Dorsiflexors: 5 Left Dorsiflexors: 5 Right Plantarflexors: 5 Left Plantarflexors: 5 Joint ROM: Right foot Ankle Joint: WNL Left foot Ankle Joint: WNL Right foot Subtalar joint: WNL Left foot Subtalar joint: WNL Right foot Midtarsal joint: WNL Left foot Midtarsal joint: WNL Right foot Metatarsal Phalangeal joint: WNL Left foot Metatarsal Phalangeal joint: WNL Right Equinus: - Left Equinus: - Right Masses: - Left Masses: - Right Effusions: - Left Effusions: - Left Deformities: N/A Right Deformities: N/A Gait Analysis: wnl Assessment: The primary encounter diagnosis was DM TYPE 2 CAUSING NEURO DZ. 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 Plan: Discussed etiology and treatment options with patient Discussed with patient's daughter that they need to float her heels at night to avoid pressure which is causing the heel ulcerations documented in this encounter Nursing Notes * Matilde Pillai LPN - 03/09/2024 2:08 PM EDT Pt presents with her daughter Precious, tia c/o callus and pain in R heel, daughter reports seeing an ER while in [place], advised it's not infected. States 'a big hunk of skin came off' R heel today. A1c 7.0 on 11/18/23 documented in this encounter Plan of Treatment Upcoming Encounters Date Type Department Care Team (Late st Contact Info) Description 03/25/2024 1:00 PM EDT 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 Pharmacy, [address] [address] [phone] [place] [address] [address] [place] [address] 05/18/2024 12:20 PM EDT Office Visit [facility] [place] [address] [facility] [address] Duong Looney MD [address] [place] [address] 08/19/2024 1:30 PM EDT Office Visit Urology, [facility] [address] [facility] [place] [address] Jeremy Vital MD [address] [place] [address] Health Maintenance Due Date Last Done Comments DXA Scan 01/29/2011 01/29/2006, 01/29/2006 Zoster Vaccines (2 of 3) 05/14/2014 03/19/2014, 03/2014 Depression Screening 02/15/2023 02/15/2022 COVID-19 Vaccine (2022- 4 season) 2023 08/07/2022, 01/08/2021, 12/06/2020 O2 ASSESSMENT COMPLETED IN P AST YEAR FOR COPD 11/18/2024 11/18/2023 Influenza Vaccine (FLU shot) Completed 12/2022, 09/11/2022, 08/04/2021, Additional history exists documented as of this encounter Medical Devices Not on filedocumented as of this encounter Visit Diagnoses Diagnosis DM TYPE 2 CAUSING NEURO DZ- Primary Type II or unspecified type diabetes mellitus with neurological manifestations, not stated as uncontrolled 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
--- OUTSIDE RECORDS SUMMARY | 2024-05-30 11:47 | External Medical Summary | Summary of Care ---
Author Name Unknown Organization [facility] Address [address] [place] [address] Phone [phone] Care Team Providers Care Clerical Supervisor Name Role Phone Neema Looney MD Primary Care Provider [phone] Reason for Visit * Reason Comments eRx-Medication Refill Encounter Details Date Type Department Care Team (Late st Contact Info) Description 04/27/2024 Refill [facility] [address] [place] [address] Neema Loonye MD [address] [place] [address] Type 2 diabetes mellitus with hemoglobin A1c goal of less than 8.0% ([facility]) Allergies Active Allergy Reactions Criticality Noted Date Comments Adhesive Tape 03/11/2003 redness Latex 01/18/2005 rash Lisinopril Cough Low 03/18/2014 Penicillins 07/14/1999 swelling Prednisone 04/20/2005 Pt says it makes her "bleed into her intestines" documented as of this encounter (statuses as of 04/28/2024) Medications Medication Sig Dispensed Refills Start Date End Date Status Blood Glucose Monitoring Suppl (WyoosTOUCH ULTRA 2) w/Device KITIndications:Type 2 diabetes mellitus with hemoglobin A1c goal of less than 8.0% (HCC) Use as directed to test blood sugar [...] Information Patient not taking.Reported on 02/18/2024 Nystatin [id number] UNIT/GM External Powder ([facility])Indications :Candidal skin infection APPLY TOPICALLY TO [...] diabetes mellitus with diabetic neuropathy, unspecified whether detention insulin use (HCC),Restless leg syndrome take 1 [...] TWICE A DAY 200 Strip 2 4 Active OneTouch Ultra Blue In Vitro Strip (Glucose Blood)Indications:T ype 2 diabetes mellitus with hemoglobin A1c goal of less than 8.0% (HCC) TEST TWICE DAILY DX E11.9 200 Strip 1 2 04/28/20 24 Discontinued documented as of this encounter (statuses as of 04/28/2024) Active Problems Problem Noted Date Diagnosed Date [...] DZ 09/08/2009 Overview: Per Diabetes Taxonomy. 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 current use of ant icoagulant therapy [...] as of this encounter (statuses as of 04/28/2024) Immunizations Name Administration Dates Next Due COVID-19 [...] encounter Miscellaneous Notes * Telephone Encounter - Kevin Kraus RPh - 04/28/2024 12:29 PM EDT Signed Prescriptions: Disp Refills OneTouch Ultra In Vitro Strip (Glucose Blo*[address] St*2 Sig: TEST TWICE A DAYAuthorizing Provider: NEEMA LOONEY User: KEVIN KRAUS documented in this encounter Plan of Treatment Upcoming Encounters Date Type Department Care Team (Late st Contact Info) Description 05/18/2024 11:50 AM EDT 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, [place] [address] [facility] [address] [place] [facility] [address] [facility] [address] 05/20/2024 12:20 PM EDT Office Visit [facility], [place] [address] [facility] [phone] Neema Looney MD [address] [facility] [address] 08/19/2024 1:30 PM EDT Office Visit Urology, [facility] [address] [facility] [place] [address] Jeremy Vital MD [address] [place] [address] Health Maintenance Due Date Last Done Comments [...] 9:59 AM 10/18/2004 10:59 AM Care Teams Clerical Supervisor Relationship Specialty Start Date End Date Neema Looney MD [address] [place] [address] PCP - General 07/31/00 documented as of this encounter
--- OUTSIDE RECORDS SUMMARY | 2024-05-30 11:47 | External Medical Summary | Summary of Care ---
Author Name Unknown Organization [facility] Address [address] [place] [address] Phone [phone] Care Team Providers Care Insurance Professional Name Role Phone Duong Looney MD Primary Care Provider [phone] Reason for Visit * Reason Onset Date Comments Appointment 02/28/2024 Encounter Details Date Type Department Care Team (Late st Contact Info) Description 02/28/2024 Telephone Podiatry, [facility] [address] [facility] [place] [phone] Keila Sargent DPM [address] [facility] [place] [address] Appointment Allergies Active Allergy Reactions Criticality Noted Date Comments Adhesive Tape 03/11/2003 redness Latex 01/18/2005 rash Lisinopril Cough Low 03/18/2014 Penicillins 07/14/1999 swelling Prednisone 04/20/2005 Pt says it makes her "bleed into her intestines" documented as of this encounter (statuses as of 02/28/2024) Medications Medication Sig Dispensed Refills Start Date End Date Status Blood Glucose Monitoring Suppl (Quadro DynamicsTOUCH ULTRA 2) w/Device KITIndications:Type 2 diabetes mellitus with hemoglobin A1c goal of less than 8.0% ([facility]) Use as directed to test blood [...] (Voltaren)Indications :DM type 2 causing neurological disease ([facility]) Apply topically to affected area every 6 hours as needed for Other (burning hands). 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 helper insulin use ([facility]),Restless leg syndrome take 1 capsule by mouth [...] Problem Noted Date Diagnosed Date 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 therapy [...] encounter Miscellaneous Notes * Telephone Encounter - Keila Sargent DPM [...] 03/03/2024 11:00 AM EDT Office Visit Podiatry [facility] [address] [place] [address] Keila Sargent DPM [address] [place] [address] 03/25/2024 1:00 PM EDT 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 [facility] [place] [address] [place] [address] [place] [address] [address] [facility] [address] [facility] [address] 05/18/2024 12:20 PM EDT Office Visit Family Practice, [place] [address] [facility] [place] [place] [phone] Duong Looney MD [address] [place] [facility] [place] [address] 08/19/2024 1:30 PM EDT Office Visit Urology, [facility] [address] [facility] [place] [address] Jeremy Vital MD [address] [place] [address] Health Maintenance Due Date Last Done Comments [...] 9:59 AM 10/18/2004 10:59 AM Care Teams Insurance Professional Relationship Specialty Start Date End Date Duong Looney MD [address] [facility] [address] PCP - General 07/31/00 documented as of this encounter
--- OUTSIDE RECORDS SUMMARY | 2024-05-30 11:47 | External Medical Summary | Summary of Care ---
Author Name Unknown Organization [facility] Address [address] [place] [address] Phone [phone] Care Team Providers Care Pop Singer Name Role Phone Duong Looney MD Primary Care Provider [phone] Reason for Visit * Reason Onset Date Comments Appointment 02/28/2024 Encounter Details Date Type Department Care Team (Late st Contact Info) Description 02/28/2024 Telephone Podiatry, [facility] [address] [facility] [place] [id number] Keila Sargent DPM [address] [facility] [place] [address] Appointment Allergies Active Allergy Reactions Criticality Noted Date Comments Adhesive Tape 03/11/2003 redness Latex 01/18/2005 rash Lisinopril Cough Low 03/18/2014 Penicillins 07/14/1999 swelling Prednisone 04/20/2005 Pt says it makes her "bleed into her intestines" documented as of this encounter (statuses as of 02/28/2024) Medications Medication Sig Dispensed Refills Start Date End Date Status Blood Glucose Monitoring Suppl (NeituiTOUCH ULTRA 2) w/Device KITIndications:Type 2 diabetes mellitus with hemoglobin A1c goal of less than 8.0% ([facility]) Use as directed to test [...] type 2 causing neurological disease ([facility]) Apply topically to affected area every 6 hours as needed for Other (burning hands). 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 snf current use of anticoagulant therapy 0 06/15/2005 [...] Influenza, Split, I IV3, With Preserve, Inj 08/22/2016,08/13/2014,08/11/2013,11/04/2012,08/20/2011,09/08/2010,08/01/20 09,08/11/2008,08/13/2007 TDAP (age 10 and older)(Boostrix) 10/26/2015 [...] 11:00 AM EDT Office Visit Podiatry [facility] [address] [place] [address] Keila Sargent DPM [address] [place] [address] 03/25/2024 1:00 PM EDT 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 Pharmacy, [place] [address] [place] [place] [address] [place] [facility] [address] [place] [address] 05/18/2024 12:20 PM EDT Office Visit Family [facility], [place] [address] [place] [id number] Duong Looney MD [address] [place] [address] 08/19/2024 1:30 PM EDT Office Visit Urology, [facility] [address] [facility] [place] [address] Jeremy Vital MD [address] [place] [address] Health Maintenance Due Date Last Done Comments DXA Scan 01/29/2011 01/29/2006, 01/29/2006 Zoster Vaccines (2 of 3) 05/14/2014 03/19/2014, 03/2014 Depression Screening 02/15/2023 02/15/2022 COVID-19 Vaccine (2022-12 4 season) 2023 08/07/2022, 01/08/2021, 12/06/2020 O2 [...] 9:59 AM 10/18/2004 10:59 AM Care Teams Pop Singer Relationship Specialty Start Date End Date Du[facility] Looney [facility] [address] [facility] [address] PCP - General 07/31/00 documented as of this encounter
--- OUTSIDE RECORDS SUMMARY | 2024-05-30 11:48 | External Medical Summary | Summary of Care ---
Author Name Unknown Organization [facility] Address [address] [place] [place] [address] Phone [phone] Care Team Providers Care Sales And Service Agent Name Role Phone Duong Looney MD Primary Care Provider [phone] Reason for Visit * Reason Comments Dosage Adjustment In Person (Anticoag Cl inic) Encounter Details Date Type Department Care Team (Latest Contact Info) Description 01/29/2024 1:50 PM EDT 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 Pharmacy, [facility] [address] [facility] [place] [address] [facility] [address] [facility] [place] [address] Personal history of TIA (transient ischemic attack)*; 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 management encounter; 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 Allergies Active Allergy Reactions Criticality Noted Date Comments Adhesive Tape 03/11/2003 redness Latex 01/18/2005 rash Lisinopril Cough Low 03/18/2014 Penicillins 07/14/1999 swelling Prednisone 04/20/2005 Pt says it makes her "bleed into her intestines" documented as of this encounter (statuses as of 01/29/2024) Medications Medication Sig Dispensed Refills Start Date End Date Status Blood Glucose Monitoring Suppl (AudaciousTOUCH ULTRA 2) w/Device KITIndications:Type 2 diabetes mellitus [...] to hands 150 g 11 11/14/2021 Active Nystatin [id number] UNIT/GM External Powder ([facility])Indications:C andidal skin infection APPLY TOPICALLY TO AFFECTED AREA 2 TIMES A DAY TO PANNUS FOLDS 60 g 5 03/14/2022 Active OneTouch Ultra Blue In Vitro Strip (Glucose Blood)Indications:Typ e 2 diabetes mellitus with hemoglobin A1c goal of less than 8.0% ([facility]) TEST TWICE DAILY DX E11.9 200 [...] the morning. 16 g 3 10/09/2023 Active Gabapentin 300 MG Oral Capsule (Neurontin)Indication s:Type 2 diabetes mellitus with diabetic neuropathy, unspecified whether termite renewal inspector insulin use ([facility]),Restless leg syndrome take 1 capsule by [...] Additional Information Patient not taking.Reported on 11/13/2023 Solifenacin Succinate 10 MG Oral Tablet (VESIcare) Take 1 Tablet by mouth in the morning. 30 Tablet 6 10/09/2023 Active Trelegy Ellipta 200-62.5-25 MCG/ACT Aerosol [...] Coumadin clinic 90 Tablet 3 11/18/2023 Active documented as of this encounter (statuses as of 01/29/2024) Active Problems Problem Noted Date Diagnosed Date [...] NEURO DZ 09/08/2009 Overview: Per Diabetes Taxonomy. 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 of ant icoagulant therapy 11/25/2020 [...] as of this encounter (statuses as of 01/29/2024) Immunizations Name Administration Dates Next Due COVID-19 [...] as of this encounter Progress Notes * Bhakti Ogden RPh - 01/29/2024 1:38 PM EDT Medication Therapy Disease Management - 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 Patient: Keila Vital | : 1935 Subjective Patient-Reported Symptoms: Patient Findings Negatives: Signs/symptoms of thrombosis, Signs/symptoms of bleeding, Change in health, Change in alcohol use, Change in activity, Upcoming invasive procedure, Missed doses, Extra doses, Change in medications, Change in diet/appetite, Bruising Objective Current Warfarin Dose As of 01/29/2024 Warfarin maintenance plan: 5 mg (5 mg x 1) every day INR Result As of 01/29/2024 INR goal: 2.0-3.0 INR used for dosin.5 (01/29/2024) Assessment & Plan Warfarin Plan As of 01/29/2024 Full warfarin instructions: 5 mg every day No change documented: Bhakti Ogden RPh Next INR check: 03/25/2024 Repeat PT/INR in 8 week(s) Weekly dose: not changed Additional Dosing Information: Description (5mg tabs-takes in AM) Bhakti Ogden RPh Clinical Pharmacist 01/29/2024, 1:54 PM documented in this encounter Plan of Treatment Upcoming Encounters Date Type Department Care Team (Late st Contact Info) Description 01/29/2024 2:30 PM EDT Cardiac Studies Cardiac Studies, [facility] [address] [facility] [place] [address] Permanent atrial fibrillation (HCC); Nonrheumatic aortic valve stenosis; Dyslipidemia, goal LDL below 100; HTN, goal below 140/90; Chronic diastolic CHF (congestive heart failure) (HCC) 02/17/2024 12:30 PM EDT Office Visit Podiatry, [place] [address] [place] [address] Dilip Rivera DPM [address] [place] [address] 02/18/2024 2:30 PM EDT Office Visit Cardiology, [facility] [address] [place] [address] Zulema Werner CRNP [address] [facility] [place] [address] 03/25/2024 1:00 PM EDT 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 Pharmacy, [place] [address] [place] [address] [facility] [address] [place] [address] 05/18/2024 12:20 PM EDT Office Visit Family Practice, [place] [address] [place] [phone] Duong Looney MD [address] [place] [address] 06/10/2024 3:15 PM EDT Office Visit Urology, [facility] [address] [place] [address] Jeremy Vital MD [address] [facility] [address] [place] [id number] Health Maintenance Due Date Last Done Comments [...] Comments INR FINGERSTICK, POINT OF CARE STAT 01/29/2024 1:48 PM EDT Personal history of TIA (transient ischemic attack) 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 management encounter halfway current use of anticoagulant therapy documented in this encounter Results * INR FINGERSTICK, POINT OF CARE (01/29/2024 1:48 PM EDT) Fingerstick INR 2.5 INR 1:53 PM EDT [facility] Blood 01/29/2024 1:48 PM EDT 01/29/2024 1:52 PM EDT Narrative [facility] - 01/29/2024 1:53 PM EDT Therapeutic ranges for non-operative patients: Prophylaxsis/treatment of DVT: (Range:2.0-3.0) Treatment of pulmonary embolism:(Range:2.0-3.0) Prevention of systemic embolism from: -tissue heart valves -acute myocardial infarction -valvular heart disease -atrial fibrillation (Range: 2.0-3.0) Mechanical prosthetic valves: (Range: 2.5-3.5) Bhakti Ogden [facility] POINT OF C ARE TEST DOCKED DEVICE UNSOLICITED RESULTS [facility] [place] [place] 57-10 [address] [facility] [place] [address] documented in this encounter Visit Diagnoses Diagnosis Permanent atrial fibrillation (HCC) Atrial fibrillation Nonrheumatic aortic valve stenosis Aortic valve disorders Dyslipidemia, goal LDL below 100 Other and unspecified hyperlipidemia HTN, goal below 140/90 Unspecified essential hypertension Chronic diastolic CHF (congestive heart failure) (HCC) Chronic diastolic heart failure Personal history of TIA (transient ischemic attack)- Primary Transient ischemic attack (TIA), and cerebral infarction without residual deficits 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 management encounter Encounter for therapeutic drug monitoring halfway current use of anticoagulant therapy documented in this encounter Advance Directives Latest Code Status on File Code Status Date Activated Date Inactivated Comments None 10/18/2004 9:59 AM 10/18/2004 10:59 AM Care Teams Sales And Service Agent Relationship Specialty Start Date End Date Duong Looney MD [address] [facility] [place] [address] PCP - General 07/31/00 documented as of this encounter
--- OUTSIDE RECORDS SUMMARY | 2024-05-30 11:48 | External Medical Summary | Summary of Care ---
Author Name Unknown Organization [facility] Address [address] [place] [address] Phone [phone] Care Team Providers Care Hand Stripper Name Role Phone Duong Looney MD Primary Care Provider [phone] Reason for Visit * Reason Onset Date Comments Nurse Documentation 12/05/2023 Encounter Details Date Type Department Care Team (Late st Contact Info) Description 12/05/2023 Telephone [facility] [address] [place] [address] Duong Looney MD [address] [place] [address] Nurse Documentation Allergies Active Allergy Reactions Criticality Noted Date Comments Adhesive Tape 03/11/2003 redness Latex 01/18/2005 rash Lisinopril Cough Low 03/18/2014 Penicillins 07/14/1999 swelling Prednisone 04/20/2005 Pt says it makes her "bleed into her intestines" documented as of this encounter (statuses as of 12/05/2023) Medications Medication Sig Dispensed Refills Start Date End Date Status Blood Glucose Monitoring Suppl (Blue Interactive GroupTOUCH ULTRA 2) w/Device KITIndications:Type 2 diabetes mellitus [...] hands 150 g 11 11/14/2021 Active Nystatin [id number] UNIT/GM External Powder ([facility])Indications:C andidal skin infection APPLY TOPICALLY TO AFFECTED [...] diabetes mellitus with diabetic neuropathy, unspecified whether shelter insulin use (HCC),Restless leg syndrome take 1 [...] ([facility]) take 1 tablet by mouth every morning [...] as of this encounter (statuses as of 12/05/2023) Active Problems Problem Noted Date Diagnosed Date [...] NEURO DZ 09/08/2009 Overview: Per Diabetes Taxonomy. 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 0 06/15/2005 [...] as of this encounter (statuses as of 12/05/2023) Resolved Problems Problem Noted Date Diagnosed Date Resolved Date [facility] current use of ant icoagulant therapy 11/25/2020 [...] as of this encounter (statuses as of 12/05/2023) Immunizations Name Administration Dates Next Due COVID-19 [...] Date Smoking Tobacco: Former Cigarettes 2 37 Q uit: 11/11/1981 Passive Smoke Exposure: Past Smokeless Tobacco: [...] encounter Miscellaneous Notes * Telephone Encounter - Jennifer Ma LPN - 12/05/2023 8:22 AM EST Pérez sent a temporary supply of Albuterol AER HFA, it is not covered by insurance and a list of alternative medications was put in your mail bin. documented in this encounter Plan of Treatment Upcoming Encounters Date Type Department Care Team (Late st Contact Info) Description 12/16/2023 11:30 AM EST 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 Pharmacy, [place] [address] [place] [address] [facility] [address] [place] [address] 01/29/2024 2:30 PM EDT Cardiac Studies Cardiac Studies, [facility] [address] [place] [address] 02/18/2024 2:30 PM EDT Office Visit Cardiology, [facility] [address] [place] [address] Zulema Werner CRNP [address] [place] [address] 05/18/2024 12:20 PM EDT Office Visit Family Practice, [place] [address] [place] [facility] [place] [address] Duong Looney MD [address] [place] [address] 06/10/2024 3:15 PM EDT Office Visit Urology, [facility] [address] [place] [address] Jeremy Vital MD [address] [place] [address] [place] [address] Health Maintenance Due Date Last Done Comments [...] 9:59 AM 10/18/2004 10:59 AM Care Teams Hand Stripper Relationship Specialty Start Date End Date Duong Looney MD [address] [place] [address] PCP - General 07/31/00 documented as of this encounter
--- OUTSIDE RECORDS SUMMARY | 2024-05-30 11:48 | External Medical Summary | Summary of Care ---
Author Name Unknown Organization [facility] Address [address] [place] [facility] [place] [address] Phone [phone] Care Team Providers Care Emergency Medicine Specialist Name Role Phone Duong Looney MD Primary Care Provider [phone] Reason for Visit * Reason Onset Date Comments Test Results 02/19/2024 Encounter Details Date Type Department Care Team (Late st Contact Info) Description 02/19/2024 Telephone Cardiology, [facility] [address] [place] [address] Zulema Werner CRNP [address] [place] [address] Test Results Allergies Active Allergy Reactions Criticality Noted Date Comments Adhesive Tape 03/11/2003 redness Latex 01/18/2005 rash Lisinopril Cough Low 03/18/2014 Penicillins 07/14/1999 swelling Prednisone 04/20/2005 Pt says it makes her "bleed into her intestines" documented as of this encounter (statuses as of 02/19/2024) Medications Medication Sig Dispensed Refills Start Date End Date Status Blood Glucose Monitoring Suppl (Cloud CruiserTOUCH ULTRA 2) w/Device KITIndications:Type 2 diabetes mellitus with hemoglobin A1c goal of less than 8.0% ([facility]) Use as directed to test blood sugar [...] type 2 causing neurological disease ([facility]) Apply topically to affected area every 6 hours as needed for Other (burning hands). Apply to hands 150 g 11 11/14/2021 Active Additional Information Patient not taking.Reported on 02/18/2024 Nystatin [id number] UNIT/GM External Powder ([facility])Indications:C andidal skin infection APPLY TOPICALLY TO AFFECTED AREA 2 TIMES A DAY TO PANNUS FOLDS 60 g 5 03/14/2022 Active OneTouch Ultra Blue In Vitro Strip (Glucose Blood)Indications:Typ e 2 diabetes mellitus with hemoglobin A1c goal of less than 8.0% ([facility]) TEST TWICE DAILY DX E11.9 200 Strip [...] diabetic neuropathy, unspecified whether 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 insulin use ([facility]),Restless leg syndrome take 1 capsule by mouth [...] as of this encounter (statuses as of 02/19/2024) Active Problems Problem Noted Date Diagnosed Date [...] NEURO DZ 09/08/2009 Overview: Per Diabetes Taxonomy. 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 0 06/15/2005 [...] as of this encounter (statuses as of 02/19/2024) Resolved Problems Problem Noted Date Diagnosed Date Resolved Date inspector returned materials current use of ant icoagulant therapy 11/25/2020 [...] as of this encounter (statuses as of 02/19/2024) Immunizations Name Administration Dates Next Due COVID-19 [...] 03/03/2024 11:00 AM EDT Office Visit Podiatry [facility] [address] [place] [address] Keila Sargent DPM [address] [place] [address] 03/25/2024 1:00 PM EDT 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 Pharmacy, [place] [address] [address] [facility] [address] [facility] [address] [facility] [address] 05/18/2024 12:20 PM EDT Office Visit [facility] [place] [address] [place] [address] Duong Looney MD [address] [place] [address] 08/19/2024 1:30 PM EDT Office Visit Urology, [facility] 132 [facility] [place] [address] Jeremy Vital MD [address] [...] 9:59 AM 10/18/2004 10:59 AM Care Teams Emergency Medicine Specialist Relationship Specialty Start Date End Date Duong Looney MD [address] [place] [address] PCP - General 07/31/00 documented as of this encounter
--- OUTSIDE RECORDS SUMMARY | 2024-05-30 11:48 | External Medical Summary | Summary of Care ---
Author Name Unknown Organization [facility] Address [address] [facility] [place] [address] Phone [phone] Care Team Providers Care Supervisor Sandblaster Name Role Phone Duong Looney MD Primary Care Provider [phone] Reason for Visit * Reason Onset Date Comments Test Results 01/29/2024 Encounter Details Date Type Department Care Team (Late st Contact Info) Description 01/29/2024 Telephone Cardiology, [facility] [address] [place] [address] Zulema Werner CRNP [address] [place] [address] Test Results Allergies Active Allergy Reactions Criticality Noted Date Comments Adhesive Tape 03/11/2003 redness Latex 01/18/2005 rash Lisinopril Cough Low 03/18/2014 Penicillins 07/14/1999 swelling Prednisone 04/20/2005 Pt says it makes her "bleed into her intestines" documented as of this encounter (statuses as of 01/29/2024) Medications Medication Sig Dispensed Refills Start Date End Date Status Blood Glucose Monitoring Suppl (HypecalTOUCH ULTRA 2) w/Device KITIndications:Type 2 diabetes mellitus [...] hands 150 g 11 11/14/2021 Active Nystatin [id number] UNIT/GM External Powder ([facility])Indications:C andidal skin infection APPLY TOPICALLY TO AFFECTED AREA 2 TIMES A DAY TO PANNUS FOLDS 60 g 5 03/14/2022 Active OneTouch Ultra Blue In Vitro Strip (Glucose Blood)Indications:Typ e 2 diabetes mellitus with hemoglobin A1c goal of less than 8.0% ([facility]) TEST TWICE DAILY DX E11.9 [...] mellitus with diabetic neuropathy, unspecified whether terminal carman insulin use (HCC),Restless leg syndrome take 1 [...] than 8.0% ([facility]) take 1 tablet by mouth [...] NEURO DZ 09/08/2009 Overview: Per Diabetes Taxonomy. 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 ----- Message from CELINA Causey sent at 01/29/2024 3:45 PM EDT ----- LVEF normal. No wall motion abnormalities. Mild aortic stenosis. Mild MR/TR. No changes needed at this time. documented in this encounter Plan of Treatment Upcoming Encounters Date Type Department Care Team (Late st Contact Info) Description 02/17/2024 12:30 PM EDT Office Visit Podiatry, [place] [address] [place] [address] Dilip Rivera DPM [address] [place] [address] 02/18/2024 2:30 PM EDT Office Visit [facility]iology, [facility] [address] [facility] [address] Zulema Werner CRNP [address] [facility] [address] 03/25/2024 1:00 PM EDT 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 Pharmacy, [place] [address] [place] [address] [facility] [address] [place] [address] 05/18/2024 12:20 PM EDT Office Visit [facility] [address] [place] [facility] [place] [phone] Duong Looney MD [address] [place] [address] 06/10/2024 3:15 PM EDT Office Visit Urology, [facility] [address] [place] [address] Jeremy Vital MD [address] [facility] [address] [place] [address] Health Maintenance Due Date Last Done Comments [...] 9:59 AM 10/18/2004 10:59 AM Care Teams Supervisor Sandblaster Relationship Specialty Start Date End Date Duong Looney MD [address] [facility] [place] [address] PCP - General 07/31/00 documented as of this encounter
--- OUTSIDE RECORDS SUMMARY | 2024-05-30 11:48 | External Medical Summary | Summary of Care ---
Author Name Unknown Organization [facility] Address [address] [place] [address] Phone [phone] Care Team Providers Care Artist Woodblock Name Role Phone Duong Looney MD Primary Care Provider [phone] Reason for Visit * Reason Comments Follow Up Encounter Details Date Type Department Care Team (Late st Contact Info) Description 02/18/2024 2:30 PM EDT Office Visit Cardiology, [facility] [address] [place] [address] Zulema Werner CRNP [address] [facility] [place] [address] Permanent atrial fibrillation (HCC)*; Nonrheumatic aortic valve stenosis; HTN, goal below 140/90 Allergies Active Allergy Reactions Criticality Noted Date Comments Adhesive Tape 03/11/2003 redness Latex 01/18/2005 rash Lisinopril Cough Low 03/18/2014 Penicillins 07/14/1999 swelling Prednisone 04/20/2005 Pt says it makes her "bleed into her intestines" documented as of this encounter (statuses as of 02/18/2024) Medications Medication Sig Dispensed Refills Start Date End Date Status Blood Glucose Monitoring Suppl ([employer] ULTRA 2) w/Device KITIndications:Type 2 diabetes mellitus [...] :DM type 2 causing neurological disease ([facility]) Apply topically to affected area every 6 hours as needed for Other (burning hands). 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 11/25/2020 [...] as of this encounter (statuses as of 02/18/2024) Immunizations Name Administration Dates Next Due COVID-19 [...] Sign Reading Time Taken Comments Blood Pressure 126/76 02/18/2024 2:17 PM EDT Pulse 72 02/18/2024 2:17 PM EDT Temperature - - Respiratory Rate 16 02/18/2024 2:17 PM EDT Oxygen Saturation - - Inhaled Oxygen Concentration - - Weight 110.2 kg (243 lb) 02/18/2024 2:17 PM EDT Height - - Body Mass Index 40.44 11/18/2023 1:56 PM EST documented in this encounter Progress Notes * Zulema Werner CRNP - 02/18/2024 2:30 PM EDT Cardiology Outpatient Visit 02/18/2024 Primary Security Assurance Specialist: Dr. Dickerson Past medical history: Permanent atrial fibrillation with severe left atrial enlargement. Intolerant to beta-suraj due to bradycardia Hypertension Dyslipidemia Chronic diastolic CHF Mild aortic valve stenosis, stable per echo 01/2024. History of pulmonary embolism, on warfarin Dementia HPI 88-year-old female presenting to the cardiology office today in routine follow- up. Was last evaluated by the undersigned approximately 3 months ago. At her last appointment she would concerns regarding a right-sided chest discomfort with shortness of breath with exertion. Was also having some orthopnea. Weight was up about 5-10 lb in the setting of dietary indiscretions and missed doses of her medications. DTP was initiated for 3 days with impro vement of symptoms. Echocardiogram showed a normal LVEF without wall motion abnormalities. Mild aortic stenosis as well as mild MR/TR. Today the patient presents with her daughter. Overall she is feeling generally well. Continues to have some mild dyspnea with exertion. Questioning supplemental oxygen therapy as needed. No exertional chest pain. No palpitations, dizziness, syncope or near syncope. No orthopnea, PND, or increased lower extremity edema. No fever, chills, cough, hematochezia, melena, or hemoptysis. She states she is compliant with all medications and offers no side effects. Current Outpatient Medications Medication Sig Dispense Refill Acetaminophen 500 MG Oral Tablet (TYLENOL) Take 2 Tablets by mouth every 6 hours as needed for Pain, Mild. 100 Tab 0 PreserVision AREDS 2+Multi Vit Oral Capsule Take 2 Caps by mouth once for 1 dose. 60 Cap 0 Nystatin [id number] UNIT/GM External Powder ([employer]) APPLY TOPICALLY TO AFFECTED AREA 2 TIMES A DAY TO PANNUS FOLDS 60 g 5 Atorvastatin Calcium 10 MG Oral Tablet (Lipitor) Take 1 Tablet by mouth at bedtime. 90 Tablet 2 Gabapentin 300 MG Oral Capsule (Neurontin) take 1 capsule by mouth twice a day and 2 capsules by mouth at bedtime 360 Capsule 3 Losartan Potassium 25 MG Oral Tablet (Cozaar) Take 1 Tablet by mouth in the morning. 90 Tablet 2 Trelegy Ellipta 200-62.5-25 MCG/ACT Aerosol Powder Breath Activated (Lvdllktwtdl-Ekqetxarbxcy-Marzfsesbg) Inhale 1 Puff by mouth in the [...] by mouth in the morning. 90 Tablet3 Blood Glucose Monitoring Suppl ([employer] ULTRA 2) w/Device KIT Use as directed to test blood sugar twice daily E11.9 1 Kit 0 ferrous sulfate (FEOSOL) 325 (65 FE) MG Tablet Take 1 Tab by mouth 2 times a day. (Patient not taking: Reported on 09/11/2022) 60 Tab 0 Diclofenac Sodium 1 % External Gel (Voltaren) Apply topically to affected area every 6 hours as needed for Other (burning hands). Apply to hands (Patient not taking: Reported on 02/18/2024) 150 g 11 OneTouch Ultra Blue In Vitro Strip (Glucose [...] not taking: Reported on 02/18/2024) 18 g5 Fluticasone Propionate 50 MCG/ACT Nasal Suspension (Flonase) Administer 2 Sprays into each nostril in the morning. (Patient not taking: Reported on 02/18/2024) 16 g 3 metFORMIN HCl ER 500 MG Oral Tablet [...] taking: Reported on 11/13/2023) 90 Tablet 3 Nitrofurantoin Monohyd Macro 100 MG Oral Capsule (Macrobid) Take 1 Capsule by mouth in the morning and 1 Capsule before bedtime. With food until gone. (Patient not taking: Reported on 02/18/2024) 14 Capsule 2 No current facility-administered medications for this visit. Past Medical History: Diagnosis Date Abnormal Papanicolaou [...] 03/31/2020 duodenal ulcer, + H pylori / [facility] EGD, FLEXIBLE, DIAGNOSTIC 09/17/2021 Impacted food bolus removed / [facility] INCISION OF ANAL SPHINCTER 12/07/2003 Lateral internal sphincterotomy by Dr. Booker at [facility] LAP;W/HYSTERECTOMY 11/2004 with BSO for 1BG2 adenocarcinoma of uterus LIGATE/CUT OVIDUCT(S) REMOVE GALLBLADDER REPAIR LUMBAR HERNIA "years ago", disc deterioration Social History Tobacco Use Smoking status: Former Current packs/day: 0.00 Average packs/day: 2.0 packs/day for 37.0 years (74.0 ttl pk-yrs) Types: Cigarettes Start date: 11/11/1945 Quit date: 11/11/1981 Years since quittin.2 Passive exposure: Past Smokeless tobacco: Never Tobacco comments: quit in 1981 Vaping Use Vaping Use: Never used Substance Use Topics Alcohol use: No Drug use: No Review of patient's allergies indicates: Allergen Reactions Adhesive Tape redness Latex rash Penicillins swelling Prednisone Pt says it makes her "bleed into her intestines" Lisinopril Cough Review of Systems: See HPI for pertinent positives. All others negative, other than those noted in HPI. Physical Exam BP 126/76 | Pulse 72 | Resp 16 | Wt 110.2 kg (243 lb) | BMI 40.44 kg/m | BSA 2.25 m General: No acute distress. A+Ox3. HEENT: Normocephalic. Atraumatic. Conjunctiva and sclera clear. NECK: No carotid bruits. No JVD. Carotid upstrokes are brisk. Heart: Irregular. S1 and S2 noted . +2/6 systolic murmur. Lungs: Clear lung sounds. No wheezing rhonchi or rales. Abdomen: Normal bowel sounds. Soft. Nontender. No masses or organomegaly. No abdominal bruits. Extremities: Trace bilateral nonpitting lower extremity edema. Compression socks on. No clubbing orcyanosis. Pulses: radial=2/4, posterior tibial=2/4, dorsalis pedis = 2/4. NEURO: No focal deficits. PSYCH: Normal. Lab data/imaging study review: Echo 01/2024 The examination is adequate to evaluate the referral indication. The qualitative LV ejection fraction is 60-64% (normal). The LV wall thickness is mildly increased (concentric). The left ventricular wall motion is normal. The left atrium is moderately enlarged. Moderate aortic valve sclerosis is present. Mild aortic valve stenosis is present. There is severe mitral annular calcification. Mild mitral regurgitation is present. Mild tricuspid regurgitation is present 2D echocardiogram report October 09, 2022: The qualitative LV ejection fraction is 55-59% (normal). The LV wall thickness is mildly increased (concentric). The left ventricular wall motion is normal. The left atrium is moderately enlarged (42-48 ml/m^2). Moderate aortic valve sclerosis is present. Mild aortic valve stenosis is present. There is severe mitral annular calcification. Mild mitral regurgitation is present. Mild tricuspid regurgitation is present. The estimated pulmonary artery systolic pressure is 40-45mm Hg. 2D echocardiogram [facility] report summary September 17, 2021: Ejection fraction 60-65% Mild concentric left ventricular hypertrophy Severe left atrial enlargement Moderate aortic valve calcification with mild stenosis Severe mitral annular calcification Mild mitral regurgitation Mild tricuspid regurgitation The estimated systolic pulmonary pressure is 54 mmHg. Dilated IVC with normal inspiratory variation suggesting a right atrial pressure of 8 mmHg. Impression/Plan: 1. Permanent atrial fibrillation (HCC) -Permanent atrial fibrillation with severe left atrial enlargement. -Ventricular rates well controlled. Patient asymptomatic. Intolerant to beta-suraj due to bradycardia AC with coumadin, also has a history of PE 2. HTN, goal below 140/90 -Controlled. Continue losartan 25 mg daily 3. Nonrheumatic aortic valve stenosis -Mild per last echo 01/2024 (stable) 1. Repeat resting echo in 1 year to reassess aortic valve gradients. 4. Dyslipidemia, goal LDL below 100 1. Continue atorvastatin 10 mg daily 5. Chronic diastolic CHF -Patient appears primarily euvolemic on exam. -NYHA class 2-3 Continue Lasix as ordered. Will repeat a BMP following today's appointment. Ongoing shortness of breath with exertion. Unchanged history of COPD and asthma. Consider screeningfor ambulatory oxygen, will defer to the PCP. The patient agrees to the above plan and will call with additional questions or concerns. ER with all emergencies advised. Follow-up: Return in about 6 months (around 08/19/2024). | Check-out note: Labs today. 6 mos with TK. I spent a total of 30 minutes on the date of service in preparation, delivery, and documentation ofthe care provided to Keila Vital excluding any time spent in the performance of separately billed services. CELINA Angulo, Department of Cardiology This chart was completed in part utilizing [employer] Speech Voice Recognition Software. Grammatical errors, random word insertions, prounoun errors, and incomplete sentences are an occasional consequence of this system due to software limitations, ambient noise, and hardware issues. Any formal questions or concerns about the content, text, or information contained within the body of this dictation should be directly addressed to the provider for clarification. documented in this encounter Nursing Notes * Osvaldo Vega RN - 02/18/2024 2:16 PM EDT Examination Room: room 7 Name: Keila Vital Date of : (1935). Reason for Visit: for follow up Interim Hospitalization(s): denies Problems/Concerns: denies Chest Pain/SOB: PERKINS/ denies chest pain [facility] Discussed: Not applicable [facility] is a way you can talk to your provider online through e-mail. Would you like to sign up? I can activate it for you? ALREADY ACTIVE Patient was instructed to not get up on the exam table until directed and assisted by their provider; patient is to remain seated in the chair/ wheelchair/ exam table for fall prevention and safety reasons. Patient is aware to have assistance to step down off exam table with personnel. Patient voiced full comprehension of instructions. Room 7 documented in this encounter Plan of Treatment Upcoming Encounters Date Type Department Care Team (Late st Contact Info) Description 02/18/2024 3:20 PM EDT [facility] [address] [id number] Laron Carreon [address] [place] [address] Arrived 03/03/2024 11:00 AM EDT Office Visit Podiatry [facility] [place] [address] [place] [address] Keila Sargent, [facility] [address] [place] [address] 03/25/2024 1:00 PM EDT 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 Pharmacy, [place] [address] [facility], [place] [address] [facility] [address] [facility], [place] [address] 05/18/2024 12:20 PM EDT Office Visit [facility], [place] [address] [facility] [id number] Duong Looney [facility] [address] [address] 08/19/2024 1:30 PM EDT Office Visit Urology, [facility] [address] [place] [address] Jeremy Vital MD [address] [place] [address] [place] [id number] Scheduled Orders Name Type Priority Associated Diagnoses Orde r Schedule BASIC METABOLIC PANEL Lab Routine Permanent atrial fibrillation (HCC) Nonrheumatic aortic valve stenosis HTN, goal below 140/90 Expected: 02/18/2024, Expires: 02/17/2025 Health Maintenance Due Date Last Done Comments [...] as of this encounter Visit Diagnoses Diagnosis Permanent atrial fibrillation (HCC)- Primary Atrial fibrillation Nonrheumatic aortic valve stenosis Aortic valve disorders HTN, goal below 140/90 Unspecified essential hypertension documented in this encounter Advance Directives Latest Code Status on File Code Status Date Activated Date Inactivated Comments None 10/18/2004 9:59 AM 10/18/2004 10:59 AM Care Teams Artist Woodblock Relationship Specialty Start Date End Date Duong Looney MD [address] [place] [address] PCP - General 07/31/00 documented as of this encounter
--- OUTSIDE RECORDS SUMMARY | 2024-05-30 11:48 | External Medical Summary | Summary of Care ---
Author Name Unknown Organization [facility] Address [address] [place] [address] Phone [phone] Care Team Providers Care Biodiesel Operations Manager Name Role Phone Neema Looney MD Primary Care Provider [phone] Reason for Visit * Reason Comments Follow Up RetRadiation cystiti sSolifenacin. Encounter Details Date Type Department Care Team (Late st Contact Info) Description 02/10/2024 4:00 PM EDT Office Visit Urology, [facility] [address] [facility] [place] [address] Jeremy Vital MD [facility] [address] [place] [address] Recurrent UTI*; Hematuria, gross; Radiation cystitis; Urinary frequency; UTI symptoms Allergies Active Allergy Reactions Criticality Noted Date Comments Adhesive Tape 03/11/2003 redness Latex 01/18/2005 rash Lisinopril Cough Low 03/18/2014 Penicillins 07/14/1999 swelling Prednisone 04/20/2005 Pt says it makes her "bleed into her intestines" documented as of this encounter (statuses as of 02/10/2024) Medications Medication Sig Dispensed Refills Start Date End Date Status Blood Glucose Monitoring Suppl ([employer] ULTRA 2) w/Device KITIndications:Type 2 diabetes mellitus with hemoglobin A1c goal of less than 8.0% ([facility]) Use as directed to test blood sugar twice daily E11.9 1 Kit 0 7 Active ferrous sulfate (FEOSOL) 325 (65 FE) MG Tablet Take 1 Tab by mouth 2 times a day. 60 Tab 0 0 Active Acetaminophen 500 MG Oral Tablet (TYLENOL) Take 2 Tablets by mouth every 6 hours as needed for Pain, Mild. 100 Tab 0 0 Active PreserVision AREDS 2+Multi Vit Oral Capsule Take 2 Caps by mouth once for 1 dose. 60 Cap 0 1 Active Diclofenac Sodium 1 % External Gel (Voltaren)Indication s:DM type 2 causing neurological disease ([facility]) Apply topically to affected area every 6 hours as needed for Other (burning hands). Apply to hands 150 g 11 2 Active Nystatin [id number] UNIT/GM External Powder ([facility])Indications: Candidal skin infection APPLY TOPICALLY TO AFFECTED AREA 2 TIMES A DAY TO PANNUS FOLDS 60 g 5 2 Active OneTouch Ultra Blue In Vitro Strip (Glucose Blood)Indications:Ty pe 2 diabetes mellitus with hemoglobin A1c goal of less than 8.0% ([facility]) TEST TWICE DAILY DX E11.9 200 Strip 1 2 Active Loperamide HCl 2 MG Oral Capsule (Imodium) Take 1 Capsule by mouth as needed for Diarrhea. 0 Active Albuterol Sulfate HFA 108 (90 Base) MCG/ACT Inhalation Aerosol SolutionIndications: Asthma with severity to be determined inhale 2 puffs by mouth and INTO THE LUNGS every 4 hours if needed for wheezing 18 g 5 3 Active Atorvastatin Calcium 10 MG Oral Tablet (Lipitor)Indications :Hyperlipidemia with target LDL less than 100 Take 1 Tablet by mouth at bedtime. 90 Tablet 2 3 Active Fluticasone Propionate 50 MCG/ACT Nasal Suspension (Flonase) Administer 2 Sprays into each nostril in the morning. 16 g 3 3 Active Gabapentin 300 MG Oral Capsule (Neurontin)Indicatio ns:Type 2 diabetes mellitus with diabetic neuropathy, unspecified whether exterminator insulin use ([facility]),Restless leg syndrome take 1 capsule by [...] goal of less than 8.0% ([facility]) take 1 tablet by mouth every [...] 4 Active LORazepam 1 MG Oral Tablet (Ativan)Indications: Anxiety state,Generalized anxiety disorder take 1 tablet by mouth BEFORE BEDTIME 90 Tablet 0 4 Active Warfarin Sodium 5 MG Oral [...] until gone. 14 Capsule 2 4 Active Solifenacin Succinate 10 MG Oral Tablet (VESIcare) Take 1 Tablet by mouth in the morning. 30 Tablet 6 3 02/10/20 24 Discontinu ed(Refill) Nitrofurantoin Monohyd Macro 100 MG Oral Capsule (Macrobid)Indication s:UTI symptoms Take 1 Capsule by mouth in the morning and 1 Capsule before bedtime. Do all this for 7 days. With food until gone. 14 Capsule 0 4 02/10/20 24 Discontinu ed(Refill) documented as of this encounter (statuses as of 02/10/2024) Active Problems Problem Noted Date Diagnosed Date [...] NEURO DZ 09/08/2009 Overview: Per Diabetes Taxonomy. halfway current use of anticoagulant therapy 0 06/15/2005 [...] as of this encounter (statuses as of 02/10/2024) Resolved Problems Problem Noted Date Diagnosed Date [...] as of this encounter (statuses as of 02/10/2024) Immunizations Name Administration Dates Next Due COVID-19 [...] Sign Reading Time Taken Comments Blood Pressure - - Pulse - - Temperature 36.7 C (98 F) 02/10/2024 3:34 PM EDT Respiratory Rate - - Oxygen Saturation - - Inhaled Oxygen Concentration - - Weight 110.5 kg (243 lb 8 oz) 02/10/2024 3:34 PM EDT Height - - Body Mass Index 40.52 11/18/2023 1:56 PM EST documented in this encounter Progress Notes * Jeremy Vital MD - 02/10/2024 4:02 PM EDT [id number] PCP: NEEMA LOONEY [address] [place] [address] Keila Vital is a 88 year old female, who presents for six-month follow-up of her history of voiding difficulties. Patient's past notes are reviewed. She is here with her daughter. She is able to hold more urine. She was treated for UTI in [place] with Macrobid. Using 6-7 ppd, not too wet. Gross Hematuria: Presented to Urology March 2023. Negative UC&S Feb 2023. Treated with antibiotics. NICOLETTE and XRT 2004 for cancer. Cystoscopy March 2023. Trial of solifenacin 5 mg provided March 2023 with improvement, increased to 10 mg Jul 2023. Using 6-[address] scan March 2023: IMPRESSION: 1. Complex ventral hernia with nonobstructed colon within the hernia sac. 2. No definite evidence of acute abdominal or pelvic pathology. No etiology for the patient's hematuria is identified. Remainder of findings as described. UC&S Jul 2023: Culture Growth 10,000 to 100,000 colonies/mL Proteus mirabilis Abnormal Current Outpatient Medications Medication Sig Dispense Refill Blood Glucose Monitoring Suppl (ZygaTOUCH ULTRA 2) w/Device KIT Use as directed [...] hands). Apply to hands 150 g 11 Nystatin [id number] UNIT/GM External Powder ([facility]) APPLY TOPICALLY TO AFFECTED AREA 2 TIMES [...] nostril in the morning. 16 g 3 Gabapentin 300 MG Oral [...] taking: Reported on 11/13/2023) 90 Tablet 3 Solifenacin Succinate 10 MG Oral Tablet (VESIcare) Take 1 Tablet by mouth in the morning. 30 Tablet6 Trelegy Ellipta 200-62.5-25 MCG/ACT Aerosol Powder Breath Activated (Ekkrsseicxz-Cluawkeinaao-Ozafipzcrx) Inhale 1 Puff by mouth in the [...] directed by Coumadin clinic 90 Tablet 3 No current facility-administered medications for this visit. Review of patient's allergies indicates: Allergen Reactions Adhesive Tape redness Latex rash Penicillins swelling Prednisone Pt says it makes her "bleed into her intestines" Lisinopril Cough Social History: Social History Tobacco Use Smoking status: Former Current packs/day: 0.00 Average packs/day: 2.0 packs/day for 37.0 years (74.0 ttl pk-yrs) Types: Cigarettes Start date: [birth year]/11/1945 Quit date: 11/11/1981 Years since quittin.2 Passive exposure: Past Smokeless tobacco: Never Tobacco comments: quit in 1981 Substance Use Topics Alcohol use: No Vaping/E-Cigarette Use Vaping/E-Cigarette Use Never User Vaping/E-Cigarette Substances Nicotine No Other No Flavoring No THC No Cannabidiol (CBD) No Vaping/E-Cigarette Devices Disposable No Pre-filled or Refillable Cartridge No Refillable Tank No Pre-filled Pod No Family History Problem Relation Age of Onset Heart Disorder Mother DE at age 71 Hypertension Mother Heart Disorder Father CHF for years, at 82 Heart Disorder Brother ? condition No Past Hx None no breast/ovarian/colon cancer Heart Disorder Sister Past Surgical History: Procedure Laterality Date ARTHROPLASTY KNEE HINGE PROSTHESIS 06/13/1999 b/l - doing well CATARACT SURGERY,COMPLEX one eye, now with implant COLONOSCOPY 01/2000 COLONOSCOPY 04/2007 nl DEXA SCAN/BONE MINERAL AXIAL 2005 repeat 5 yrs EGD, FLEXIBLE, DIAGNOSTIC 03/31/2020 duodenal ulcer, + H pylori / [facility] EGD, FLEXIBLE, DIAGNOSTIC 09/17/2021 Impacted food bolus removed / [facility] INCISION OF ANAL SPHINCTER 12/07/2003 Lateral internal sphincterotomy by Dr. Booker at [facility] LAP;W/HYSTERECTOMY 11/2004 with BSO for 1BG2 adenocarcinoma of uterus LIGATE/CUT OVIDUCT(S) REMOVE GALLBLADDER REPAIR LUMBAR HERNIA "years ago", disc deterioration Past Medical History: Diagnosis Date Abnormal Papanicolaou [...] 1B Obesity, BMI not known Pulmonary embolus ([facility]) Statin intolerance 08/26/2013 Patient Active Problem List Diagnosis Code GENERALIZED ANXIETY DIS F41.1 Family history of other cardiovascular diseases Z82.49 OTHER PULMONARY EMBOLISM AND INFARCTION I26.99 ADVANCE DIRECTIVE INFORMATION GENERAL OSTEOARTHROSIS M15.9 Knee joint replacement status Z96.659 halfway current use of anticoagulant therapy Z79.01 DM TYPE 2 CAUSING NEURO DZ E11.49 Vitamin D deficiency E55.9 Restless leg syndrome G25.81 Benign essential tremor G25.0 Statin intolerance Type 2 diabetes mellitus with hemoglobin A1c goal of less than 8.0% (HCC) E11.9 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, type II diabetes mellitus (HCC) E11.40 Hyperlipidemia with target LDL less than 100 E78.5 HTN, goal below 150/90 I10 History of uterine cancer Z85.42 Personal history of TIA (transient ischemic attack) Z86.73 TIA (transient ischemic attack) G45.9 Coagulation defect (HCC) D68.9 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 Constitutional: General: She is not in acute distress. Appearance: Normal appearance. She is obese. She is not ill-appearing or toxic-appearing. HENT: Head: Normocephalic and atraumatic. Right Ear: External ear normal. Left Ear: External ear normal. Nose: Nose normal. Mouth/Throat: Mouth: Mucous membranes are moist. Eyes: Extraocular Movements: Extraocular movements intact. Cardiovascular: Pulses: Normal pulses. Pulmonary: Effort: Pulmonary effort is normal. No respiratory distress. Abdominal: Palpations: Abdomen is soft. Musculoskeletal: General: No deformity or signs of injury. Cervical back: Normal range of motion and neck supple. Skin: General: Skin is warm. Coloration: Skin is not pale. Neurological: General: No focal deficit present. Mental Status: She is alert and oriented to person, place, and time. Psychiatric: Mood and Affect: Mood normal. Behavior: Behavior normal. Impression/Plan: 88-year-old female with improved urinary incontinence. Findings reviewed with the patient and daughter. They are offered the addition of another medication like mirabegron. They are satisfied with control as is, wishes to leave at current dosage. Prescription for p.r.n. self start emergency Macrobid is provided when they are traveling to [place]. They feel that long car rides may be a trigger for urinary tract infection as well. Will continue six-month interval visits, consider moving out to yearly visits if patient is doing well at that time. Jeremy Vital MD 4:02 PM 02/10/2024 documented in this encounter Nursing Notes * Jany Baptiste MED ASSIST - 02/10/2024 3:34 PM EDT Chief Complaint Patient presents with Follow Up Ret Radiation cystitis Solifenacin. Verified patient. Patient is here with her daughter today. documented in this encounter Plan of Treatment Upcoming Encounters Date Type Department Care Team (Late st Contact Info) Description 02/17/2024 12:30 PM EDT Office Visit Podiatry, [facility] [address] [place] [address] Dilip Rivera, DPM [address] [place], [place] [id number] 02/18/2024 2:30 PM EDT [facility] [address] Zulema Werner CRNP [address] [facility] [place] [address] 03/25/2024 1:00 PM EDT 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 Pharmacy, [place] [address] [place] [address] [facility] [address] [place] [address] 05/18/2024 12:20 PM EDT Office Visit Family [place] [address] [place] [id number] Neema Looney MD [address] [place] [address] 08/19/2024 1:30 PM EDT Office Visit Urology, [facility] [address] Jeremy Vital MD [address] [place] [address] [place] [address] Health Maintenance Due Date [...] Primary Urinary tract infection, site not specified Hematuria, gross Gross hematuria Radiation cystitis Irradiation cystitis Urinary frequency UTI symptoms Other symptoms involving urinary system documented in this encounter Advance Directives Latest Code Status on File Code Status Date Activated Date Inactivated Comments None 10/18/2004 9:59 AM 10/18/2004 10:59 AM Care Teams Biodiesel Operations Manager Relationship Specialty Start Date End Date Neema Looney MD [address] [place] [address] PCP - General 07/31/00 documented as of this encounter
--- OUTSIDE RECORDS SUMMARY | 2024-05-30 11:48 | External Medical Summary ---
Author Name Unknown Address Unknown Organization [facility] [place] [address] [place] [id number] Laboratory Report Ordering Provider Test Date Status SHIV SCANLON 02/18/2024 15:12:49 Final Observation Date Value Abnormality Reference (Units ) Status BUN 02/18/2024 15:12:49 26 Above high normal 6-20 (mg/dL) Final Creatinine 02/18/2024 15:12:49 1.1 Above high normal 0.5-1.0 (mg/dL) Final Glomerular filtration rate/1.73 sq M.predicted [Volume Rate/Area] in Serum, Plasma or Blood by Creatinine-based formula (CKD-EPI) 02/18/2024 15:12:49 50 Below low normal >=60 (mL/min) Final eGFR is calculated based on the CKD-EPI 2020 equation Sodium 02/18/2024 15:12:49 141 135-146 (m mol/L) Final Potassium 02/18/2024 15:12:49 4.6 3.5-5.1 (m mol/L) Final Cl 02/18/2024 15:12:49 102 98-107 (mm ol/L) Final CO2 02/18/2024 15:12:49 29 22-32 (mmo l/L) Final Anion gap 02/18/2024 15:12:49 10 7-15 (mmol /L) Final Glucose 02/18/2024 15:12:49 109 70-120 (mg /dL) Final Calcium 02/18/2024 15:12:49 9.4 8.4-10.2 ( mg/dL) Final Performing Location [facility] [address] [place] [id number]
--- OUTSIDE RECORDS SUMMARY | 2024-05-30 11:48 | External Medical Summary | Summary of Care ---
Author Name Unknown Organization [facility] Address [address] [place] [address] Phone [phone] Care Team Providers Care Network Specialist Name Role Phone Duong Looney MD Primary Care Provider [phone] Reason for Visit * Reason Comments Outpatient Testing Encounter Details Date Type Department Care Team (Late st Contact Info) Description 02/18/2024 3:20 PM EDT Laboratory Laboratory, [facility] [address] [place] [phone] [facility] [address] [place] [address] Permanent atrial fibrillation (HCC); Nonrheumatic aortic valve stenosis; HTN, goal below [...] End Date Status Blood Glucose Monitoring Suppl ([employer]CH ULTRA 2) w/Device KITIndications:Type 2 diabetes mellitus [...] (Voltaren)Indications :DM type 2 causing neurological disease ([facility]) Apply topically to affected area every 6 hours as needed for Other (burning hands). Apply to hands 150 g 11 11/14/2021 Active Additional Information Patient not taking.Reported on 02/18/2024 Nystatin [id number] UNIT/GM External Powder ([facility])Indications:C andidal skin infection APPLY TOPICALLY TO AFFECTED AREA 2 TIMES A DAY TO PANNUS FOLDS 60 g 5 03/14/2022 Active OneTouch Ultra Blue In Vitro Strip (Glucose Blood)Indications:Typ e 2 diabetes mellitus with hemoglobin A1c goal of less than 8.0% ([facility]) TEST TWICE DAILY DX E11.9 200 [...] neuropathy, unspecified whether terminal manager insulin use ([facility]),Restless leg syndrome take 1 capsule by [...] NEURO DZ 09/08/2009 Overview: Per Diabetes Taxonomy. 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 [address] [place] [address] 05/18/2024 12:20 PM EDT Office Visit Family Practice, [place] [address] [place] [facility] [place] [address] Duong Looney MD [address] [place] [address] 08/19/2024 1:30 PM EDT Office Visit [facility], [facility] [place] [address] Jeremy Vital MD [address] [facility] [address] [place] [address] Pending Results Name Type Priority Associated Diagnoses Date /Time BASIC METABOLIC PANEL Lab Routine Permanent atrial fibrillation (HCC) Nonrheumatic aortic valve stenosis HTN, goal below 140/90 02/18/2024 3:12 PM EDT Health Maintenance Due Date Last [...] 9:59 AM 10/18/2004 10:59 AM Care Teams Network Specialist Relationship Specialty Start Date End Date Duong Looney MD [address] [place] [address] PCP - General 07/31/00 documented as of this encounter
--- OUTSIDE RECORDS SUMMARY | 2024-05-30 11:48 | External Medical Summary ---
Author Name Unknown Address Unknown Organization [facility] [address] [place] [id number] Laboratory Report Ordering Provider Test Date Status PARESH DEE 01/29/2024 13:48:47 Final Therapeutic ranges for non-o perative patients:
Prophylaxsis/treatment of DVT: (Range:2.0-3.0)
Treatment of pulmonary embolism:(Range:2.0-3.0)
Prevention of systemic embolism from:
-tissue heart valves
-acute myocardial infarction
-valvular heart disease
-atrial fibrillation
(Range: 2.0-3.0)
Mechanical prosthetic valves: (Range: 2.5-3.5) Observation Date Value Abnormality Reference (Units ) Status INR in Capillary blood by Coagulation assay 01/29/2024 13:48:47 2.5 (INR) Final Performing Location [facility] [address] [place] [id number]
--- NOTE | 2024-05-30 12:30 | Emergency Department Note ---
History of Present Illness General Chief complaint: Urinary Symptoms Stated complaint: URINARY SYMPTOMS NOT GETTING BETTER, COUGH, SOB Time Seen by Provider: 05/30/24 11:48 History of Present Illness NAME: VIV FOLEY AGE: 88 SEX: F : 1935 ARRIVES VIA: Walk-In INFORMANT: Patient, Family ED PROVIDER(S): CELINA Shine, Michael Craven MD The patient is an 88-year-old female who arrives to the emergency department for evaluation of increased weakness, with diagnosed UTI. The daughter is at bedside and states the patient was diagnosed with UTI on , however she has had symptoms since last Saturday. The daughter reports she was able to take a urine sample to her primary care provider at [facility] who did confirm the urinary tract infection. They started the patient on bisaturday, however she has had increased weakness, and now is having difficulty breathing. She has a history of COPD, and uses Trelegy, as well as CHF with daily furosemide. The patient does not wear oxygen at baseline, however states she feels significantly short of breath. Daughter reports she heard wheezing, and was concerned for worsening signs of infection. Home Medications Medication Instructions Recorded Confirmed Type acetaminophen 500 mg tablet 1,000 mg PO Q6H PRN Pain 06/06/23 05/30/24 History (Tylenol Extra Strength) albuterol sulfate 90 mcg/actuation 2 puff inhalation Q4 PRN Shortness 06/06/23 05/30/24 History aerosol inhaler Of Breath Or Wheezing atorvastatin 10 mg tablet 10 mg PO HS 06/06/23 05/30/24 History furosemide 20 mg tablet 20 mg PO [id number] 06/06/23 05/30/24 History furosemide 20 mg tablet 40 mg PO [id number] 06/06/23 05/30/24 History gabapentin 300 mg capsule 1,200 mg PO HS 06/06/23 05/30/24 History lorazepam 1 mg tablet 1 mg PO HS PRN ANXIETY/SLEEP 06/06/23 05/30/24 History losartan 25 mg tablet 25 mg PO DAILY 06/06/23 05/30/24 History metformin 500 mg tablet,extended 500 mg PO BIDM 06/06/23 05/30/24 History release 24 hr solifenacin 5 mg tablet 5 mg PO QAM 06/06/23 05/30/24 History vit C 250 mg-vit E 90 mg-zinc 40 1 tab PO BIDM 06/06/23 05/30/24 History mg-copper 1 [id number] capsule (PreserVision AREDS-2) warfarin 5 mg tablet 5 mg PO QPM 06/06/23 05/30/24 History fluticasone fur. 200 mcg-umeclid 1 inh inhalation DAILY 05/30/24 05/30/24 History 62.5 mcg-vilant 25 mcg inhalat.powder (Trelegy Ellipta) loperamide 2 mg capsule 2 mg PO DIRECTED PRN Diarrhea 05/30/24 05/30/24 History nystatin 100,000 unit/gram topical 1 applic topical BID PRN ABD FOLDS 05/30/24 05/30/24 History powder (Nyamyc) NEEDED sulfamethoxazole 800 1 tab PO BID 05/30/24 05/30/24 History mg-trimethoprim 160 mg tablet triamcinolone acetonide 0.1 % 1 applic topical BID PRN SKIN 05/30/24 05/30/24 History topical cream IRRITATION NEEDED Allergies Allergy/AdvReac Type Severity Reaction Status Date / Time vancomycin Allergy Severe ANAPHYLAXIS Verified 05/30/24 15:17 adhesive Allergy Intermediate RED AND Verified 05/30/24 15:17 ITCHY SKIN latex Allergy Intermediate Rash Verified 05/30/24 15:17 Penicillins Allergy Intermediate SWELLING Verified 05/30/24 15:17 PER GMG lisinopril AdvReac Intermediate Cough Verified 05/30/24 15:17 prednisone AdvReac Intermediate INCREASED Verified 05/30/24 15:17 HER RECTAL BLEEDING Past Med/Surg History Problem List (Updated 05/30/24 @ 16:13 by CELINA Jett) Urinary tract infection (Acute) Acute on chronic heart failure with preserved ejection fraction (Acute) E. coli urinary tract infection Pulmonary edema cardiac cause (Acute) Aortic stenosis, mild Pulmonary HTN Aspiration into airway History of pulmonary embolism Paroxysmal atrial fibrillation Encounter for pre-operative examination Dysphagia Food impaction of esophagus Respiratory failure Hypoxia (Acute) Acute GI bleeding (Acute) Supratherapeutic INR (Acute) Abscess of breast, right (Acute) Abscess DVT prophylaxis Coagulopathy Upper GI bleed Hyperlipidemia Hypertension History of DVT (deep vein thrombosis) History of TIA (transient ischemic attack) DM type 2 (diabetes mellitus, type 2) Medical History (Updated 05/30/24 @ 16:13 by CELINA Jett) History of uterine cancer Diabetic neuropathy FDC current use of anticoagulant COPD with asthma Surgical History History of cholecystectomy History of back surgery History of tubal ligation History of hysterectomy History of cataract surgery History of total left knee replacement History of total right knee replacement Family History Mother Heart disease Social History Smoking Status: Former smoker Tobacco Type: Cigarettes Hx Alcohol Use: No Hx Substance Use: No Preferred Language: Divehi Communication Ability: Effective Communication Ability Comment: hearing deficit [employer] Required: No Beliefs That Will Affect Care: None marital status: / Current Living Situation: Family Current Living Situation Comment: Lives with daughter current occupational status: retired Other Information That Helps Us Care for You: No Feels Safe at Home: Yes Assistive Devices: Denture - Upper, Denture - Lower, Glasses, Hearing Aid - Left and Walker Physical Exam Vital Signs Vital Signs - 24 hr 05/30/24 11:37 05/30/24 12:24 05/30/24 12:40 Temperature 36.6 C Temperature Source Temporal Artery Scan Pulse Rate 82 74 Pulse Rate from SpO2 Sensor 76 Respiratory Rate 18 19 Blood Pressure 172/83 H Blood Pressure Mean 112 Pulse Oximetry 90 96 96 Oxygen Delivery Method Nasal Cannula Oxygen Flow Rate 2 Sepsis Recent Fever Within 48 Hours No Sepsis New/Unexplained Change in Mental Status N/A Sepsis Action Taken by Nursing No Action Required 05/30/24 12:43 05/30/24 12:51 05/30/24 13:54 Temperature Temperature Source Pulse Rate 73 69 75 Pulse Rate from SpO2 Sensor 68 69 Respiratory Rate 20 21 Blood Pressure 138/79 Blood Pressure Mean 98 Pulse Oximetry 92 91 Oxygen Delivery Method Oxygen Flow Rate Sepsis Recent Fever Within 48 Hours Sepsis New/Unexplained Change in Mental Status Sepsis Action Taken by Nursing 05/30/24 14:03 05/30/24 15:03 Temperature Temperature Source Pulse Rate 67 77 Pulse Rate from SpO2 Sensor 68 75 Respiratory Rate 22 21 Blood Pressure 149/59 H 155/71 H Blood Pressure Mean 89 99 Pulse Oximetry 91 92 Oxygen Delivery Method Oxygen Flow Rate Sepsis Recent Fever Within 48 Hours Sepsis New/Unexplained Change in Mental Status Sepsis Action Taken by Nursing VITALS: Vitals are noted on the nurse's note and reviewed by myself. Vital signs stable. GENERAL: 88-year-old female, in no acute distress, nondiaphoretic, well- developed well-nourished. SKIN: The skin was without rashes, erythema, edema, or bruising. HEAD: Normocephalic atraumatic. NECK: Supple without nuchal rigidity. No JVD. HEART: Regular rate and rhythm without murmurs gallops or rubs. LUNGS: Coarse lung wound with crackles at bases, no wheezing noted. ABDOMEN: Positive bowel sounds x 4. Soft, nontender, without masses or organomegaly. Singh sign negative. No guarding or rebound tenderness. MUSCULOSKELETAL: Bilateral lower extremity edema present, NAKUL hose in place. Strength 5/5 throughout. NEURO: Patient was alert and oriented to person place and time. No focal neurological deficits. Course Administered Medications Atorvastatin Calcium (Atorvastatin 10 Mg Tab) 10 mg PO MARIANELA Stop: 06/29/24 20:59 Last Admin: 05/30/24 20:29 Dose: 10 mg Documented By: SOWMYA Fluticasone Furoate (Fluticasone Furoate 200mcg 14 Puffs/Inhaler) 1 puffs INH DAILY MARIANELA Stop: 06/30/24 08:59 Last Admin: 05/31/24 10:03 Dose: 1 puffs Documented By: MUNIRA Gabapentin (Gabapentin 400 Mg Cap) 1,200 mg PO MARIANELA Stop: 06/29/24 20:59 Last Admin: 05/30/24 20:29 Dose: 1,200 mg Documented By: SOWMYA Magnesium Sulfate/Dextrose (Magnesium Sulfate / D5w) 1 gm in 100 mls @ 50 mls/hr IV Q2H MARIANELA Stop: 05/31/24 12:14 Last Admin: 05/31/24 10:16 Dose: 50 mls/hr Documented By: MUNIRA Insulin Aspart (Insulin Aspart Per Unit Charge) 0 units SC ACHS MARIANELA Stop: 06/29/24 18:14 Last Admin: 05/31/24 08:49 Dose: 2 units Documented By: MUNIRA Co-signed By: OVIDIO Admin: 05/30/24 21:24 Dose: 1 units Documented By: SOWMYA Co-signed By: MAGALIS Admin: 05/30/24 19:04 Dose: Not Given Documented By: PROMISE Co-signed By: MARTINA Lorazepam (Lorazepam 1 Mg Tab) 1 mg PO HS MARIANELA Stop: 06/29/24 20:59 Last Admin: 05/30/24 21:17 Dose: 1 mg Documented By: SOWMYA Losartan Potassium (Losartan Potassium 25 Mg Tab) 25 mg PO DAILY MARIANELA Stop: 06/30/24 08:59 Last Admin: 05/31/24 10:02 Dose: 25 mg Documented By: MUNIRA Oxybutynin Chloride (Oxybutynin Chloride Xl 5 Mg Tabcr) 5 mg PO QAM MARIANELA Stop: 06/30/24 08:59 Last Admin: 05/31/24 10:02 Dose: 5 mg Documented By: MUNIRA Potassium Chloride (Potassium Chloride 10 Meq Tabcr) 10 meq PO BID MARIANELA Stop: 06/30/24 08:59 Last Admin: 05/31/24 10:02 Dose: 10 meq Documented By: MUNIRA Umeclidinium/Vilanterol (Umeclidinium/Vilanterol 62.5/25mcg 7 Puffs/Inhaler) 1 puffs INH DAILY MARIANELA Stop: 06/30/24 08:59 Last Admin: 05/31/24 10:03 Dose: 1 puffs Documented By: MUNIRA Warfarin Sodium (Warfarin Sod 5 Mg Tab) 5 mg PO DAILY@1600 MARIANELA Stop: 06/29/24 18:29 Last Admin: 05/30/24 20:28 Dose: 5 mg Documented By: SOWMYA Discontinued Medications Furosemide (Furosemide 40 Mg/4 Ml Vial) 40 mg IV NOW STA Stop: 05/30/24 18:09 Last Admin: 05/30/24 21:11 Dose: 40 mg Documented By: SOWMYA Furosemide (Furosemide 40 Mg/4 Ml Vial) Confirm Administered Dose 40 mg IV .STK- MED ONE Stop: 05/30/24 21:11 Last Admin: 05/30/24 21:15 Dose: Not Given Documented By: SOWMYA Furosemide (Furosemide 40 Mg/4 Ml Vial) 40 mg IV BIDM ONE Stop: 05/31/24 08:14 Last Admin: 05/31/24 10:08 Dose: 40 mg Documented By: MUNIRA Ceftriaxone Sodium (Rocephin) 1,000 mg in 50 mls @ 100 mls/hr IV Q24H MARIANELA Stop: 06/01/24 14:44 Last Infusion: 05/30/24 15:15 Dose: Infused Documented By: Admin: 05/30/24 14:44 Dose: 100 mls/hr Documented By: DIONTE Doxycycline Hyclate 100 mg/ (Dextrose) 100 mls @ 50 mls/hr IV NOW STA Stop: 05/30/24 16:38 Last Admin: 05/30/24 19:50 Dose: Not Given Documented By: DANIALK Medical Decision Making Differential Diagnosis Reactive airway disease, pneumonia, pneumothorax, COPD, CHF, infections, cardiac ischemia, pulmonary embolism, musculoskeletal, gastrointestinal, sepsis, urinary tract infection, as well as other pathologies. Medical Records Attestation: I reviewed the patient's medical records. Home Medications Current Medication List: was personally reviewed by me Laboratory Data Attestation: I reviewed the patient's lab results. CBC shows no leukocytosis, stable hemoglobin and hematocrit, CMP unremarkable, troponin negative, D-dimer negative, BNP 148, urinalysis positive for infection. COVID/flu/RSV negative. 05/30/24 11:59 05/31/24 06:09 Lab Results 05/30/24 05/30/24 05/30/24 Range/Units 11:50 11:53 11:59 WBC 6.02 (4.8-10.8) K/ul RBC 4.25 (4.20-5.40) M/uL Hgb 12.8 (12.0-16.0) g/dl Hct 39.3 (37.0-47.0) % MCV 92.5 (80.0-100.0) fL MCH 30.1 (25.0-34.0) pg MCHC 32.6 (32.0-36.0) g/dL RDW Std Deviation 46.9 H (36.4-46.3) fL RDW Coeff of Ata 13.8 (11.5-14.5) % Plt Count 109 L (130-400) K/uL MPV 11.2 (9.4-12.4) fL Immature Gran % (Auto) 0.5 % Neut % (Auto) 72.8 % Lymph % (Auto) 8.6 % [place] % (Auto) 14.1 % Eos % (Auto) 3.5 % Baso % (Auto) 0.5 % Neut # (Auto) 4.38 (1.40-6.50) K/uL Lymph # (Auto) 0.52 L (1.20-3.40) K/uL [place] # (Auto) 0.85 H (0.11-0.59) K/uL Eos # (Auto) 0.21 (0.00-0.50) K/uL Baso # (Auto) 0.03 (0.00-0.20) K/uL Immature Gran # (Auto) 0.03 (0.01-0.20) K/uL PT 19.5 H (9.0-12.0) Seconds INR 1.9 H (0.9-1.1) D-Dimer 480 (0-500) ug/L FEU Sodium 135 L (136-145) mmol/L Potassium 4.1 (3.5-5.1) mmol/L Chloride 99 (98-107) mmol/L Carbon Dioxide 28 (21-32) mmol/L Anion Gap 8 (3-11) BUN 23 (6-23) mg/dl Creatinine 0.87 (0.6-1.2) mg/dl Est Cr Clr Drug Dosing Not Reportable Est GFR ( Amer) 68.5 ml/min Est GFR (Non-Af Amer) 59.1 ml/min BUN/Creatinine Ratio 26.4 H (10-20) Glucose 131 H (70-99(Fasting)) mg/dl Calcium 8.9 (8.6-10.3) mg/dl Total Bilirubin 0.7 (0.2-1.0) mg/dl AST 13 (13-39) U/L ALT 13 (7-52) U/L Alkaline Phosphatase 73 (34-104) U/L Troponin I High Sens 10.2 (0-14) pg/ml B-Natriuretic Peptide (0-100) pg/ml Total Protein 6.9 (6.0-8.3) gm/dl Albumin 3.8 (3.4-5.0) gm/dl Globulin 3.1 (2.5-4.0) gm/dl Albumin/Globulin Ratio 1.2 (0.9-2) Lipase 17 (11-82) U/L Urine Color Yellow Urine Appearance Cloudy A (Clear) Urine pH 5.5 (4.5-7.5) Ur Specific [place] 1.006 (1.000-1.030) Urine Protein Negative (Negative) Urine Glucose (UA) Negative (Negative) Urine Ketones Negative (Negative) Urine Blood 2+ H (Negative) Urine Nitrite Negative (Negative) Urine Bilirubin Negative (Negative) Urine Urobilinogen Negative (Negative) Ur Leukocyte Esterase 3+ H (Negative) Urine WBC (Auto) >50 H (0-5) /hpf Urine RBC (Auto) 3-5 H (0-2) /hpf U Hyaline Cast (Auto) 0-2 (0-2) /lpf U Epithel Cells (Auto) 0-2 (0-2) /hpf Urine Bacteria (Auto) None Seen (None Seen) Talc Crystals Present H (None Prsent) SARS-CoV-2 (PCR) NEGATIVE (Negative) Influenza Type A (PCR) Negative (Neg) Influenza Type B (PCR) Negative (Neg) RSV (RT-PCR) Negative (Neg) 05/30/24 Range/Units 12:49 WBC (4.8-10.8) K/ul RBC (4.20-5.40) M/uL Hgb (12.0-16.0) g/dl Hct (37.0-47.0) % MCV (80.0-100.0) fL MCH (25.0-34.0) pg MCHC (32.0-36.0) g/dL RDW Std Deviation (36.4-46.3) fL RDW Coeff of Ata (11.5-14.5) % Plt Count (130-400) K/uL MPV (9.4-12.4) fL Immature Gran % (Auto) % Neut % (Auto) % Lymph % (Auto) % [place] % (Auto) % Eos % (Auto) % Baso % (Auto) % Neut # (Auto) (1.40-6.50) K/uL Lymph # (Auto) (1.20-3.40) K/uL [place] # (Auto) (0.11-0.59) K/uL Eos # (Auto) (0.00-0.50) K/uL Baso # (Auto) (0.00-0.20) K/uL Immature Gran # (Auto) (0.01-0.20) K/uL PT (9.0-12.0) Seconds INR (0.9-1.1) D-Dimer (0-500) ug/L FEU Sodium (136-145) mmol/L Potassium (3.5-5.1) mmol/L Chloride (98-107) mmol/L Carbon Dioxide (21-32) mmol/L Anion Gap (3-11) BUN (6-23) mg/dl Creatinine (0.6-1.2) mg/dl Est Cr Clr Drug Dosing Est GFR ( Amer) ml/min Est GFR (Non-Af Amer) ml/min BUN/Creatinine Ratio (10-20) Glucose (70-99(Fasting)) mg/dl Calcium (8.6-10.3) mg/dl Total Bilirubin (0.2-1.0) mg/dl AST (13-39) U/L ALT (7-52) U/L Alkaline Phosphatase (34-104) U/L Troponin I High Sens (0-14) pg/ml B-Natriuretic Peptide 148 H (0-100) pg/ml Total Protein (6.0-8.3) gm/dl Albumin (3.4-5.0) gm/dl Globulin (2.5-4.0) gm/dl Albumin/Globulin Ratio (0.9-2) Lipase (11-82) U/L Urine Color Urine Appearance (Clear) Urine pH (4.5-7.5) Ur Specific [place] (1.000-1.030) Urine Protein (Negative) Urine Glucose (UA) (Negative) Urine Ketones (Negative) Urine Blood (Negative) Urine Nitrite (Negative) Urine Bilirubin (Negative) Urine Urobilinogen (Negative) Ur Leukocyte Esterase (Negative) Urine WBC (Auto) (0-5) /hpf Urine RBC (Auto) (0-2) /hpf U Hyaline Cast (Auto) (0-2) /lpf U Epithel Cells (Auto) (0-2) /hpf Urine Bacteria (Auto) (None Seen) Talc Crystals (None Prsent) SARS-CoV-2 (PCR) (Negative) Influenza Type A (PCR) (Neg) Influenza Type B (PCR) (Neg) RSV (RT-PCR) (Neg) Imaging Data Attestation: I personally reviewed and interpreted this imaging study as follows: My Impression: Initial x-ray interpretation per myself shows possible pulmonary vascular congestion. Will await formal radiology report. Radiologist's Impression: Chest X-Ray 05/30/24 12:40 XR chest 2V PA/lateral CLINICAL HISTORY: Chest pain, nonspecific, r/o pnx TECHNIQUE: 2 views of the chest were obtained. Comparison: Comparison is made to chest 06/06/2023 FINDINGS: Exam is limited by underpenetration. Cardiomegaly is noted. The aortic arch is calcified. The lungs are clear. No evidence of pleural effusion or pneumothorax. IMPRESSION: No acute chest disease. Cardiomegaly is noted. ACT 112: Negative or not required by law. Electronically signed by: Aly Fajardo M.D. 05/30/2024 1:45 PM ECG Data Attestation: I personally reviewed and interpreted this ECG as follows: Indication: + SOB/dyspnea Rate (beats per minute): 68 Rhythm: + atrial fibrillation ECG [place]: + Normal ECG ST segments: + Normal ST segments Comparison ECG Date: from (05/2023) Change: no significant change Blood Pressure Blood Pressure Findings: Elevated blood pressure Blood Pressure Disposition: further management by hospitalist [facility] Narrative The patient is an 88-year-old female who arrives to the emergency department with her daughter for the above-stated complaint. Upon examination the patient is exhibiting shortness of breath, with a history of COPD, and CHF. The daughter reports the patient also has significant weakness, and states she believes her urinary tract infection is worsening. She was placed on Macrobid, for a positive E. coli culture. A saline lock was established, CBC, CMP, troponin, D-dimer, BNP, urinalysis were obtained. CBC shows no leukocytosis, stable hemoglobin and hematocrit, CMP unremarkable, troponin negative, D-dimer negative, BNP 148, urinalysis positive for infection. COVID/flu/RSV negative. EKG shows atrial fibrillation 68bpm with no ST elevation, or depression. 2 view chest x-ray per my interpretation shows possible pulmonary vascular congestion/pulmonary edema. The patient was given an IV dose of Rocephin, and case management was contacted to facilitate admission. The patient follows with the [facility] and was accepted for admission by Dr. Bailey from the [facility] hospitalist group. Please refer to his documentation for further patient care. The patient's case was discussed with Dr. Craven, who agreed with my evaluation and treatment plan. Continuous cardiac care unit nurse: Order was placed for continuous cardiac care unit nurse. Patient was placed on the cardiac care unit nurse. Patient was noted to be in atrial fibrillation at an initial rate of 68 bpm. Attending Attestation: I Michael Craven MD I have reviewed the advanced practitioner's documentation and agree with the plan of care. I accept the responsibility for the associated risk of managing the patient. I performed a substantive portion of the visit including involvement in all aspects of medical decision making. Impression & Plan Acute on chronic heart failure with preserved ejection fraction, Urinary tract infection, Pulmonary edema cardiac cause Discharge Plan Visit Data Chief Complaint: Urinary Symptoms Stated Complaint: URINARY SYMPTOMS NOT GETTING BETTER, COUGH, SOB ED Provider: Michael Craven ED Midlevel Provider: Kim Quezada Discharge Problem: Acute on chronic heart failure with preserved ejection fraction, Urinary tract infection, Pulmonary edema cardiac cause Patient Disposition: Admitted As Inpatient Discharge Instructions Interventions: ED Discharge Assessment Last Done: 05/30/24 17:23
[2024-05-30 12:46] LABS: Influenza A virus by PCR Negative (Neg); Influenza B virus by PCR Negative (Neg); RSV by PCR Negative (Neg); SARS CoV2 RNA(COVID-19) Ceph NEGATIVE (Negative)
[2024-05-30 12:48] LABS: Appearance Urine Cloudy (Clear); Bacteria Urine Automated None Seen (None Seen); Bilirubin Urine Negative (Negative); Blood Urine 2+ (Negative); Cast Urine Automated 0-2 /lpf (0-2); Color Urine Yellow; Epithelial Cell Urine Auto 0-2 /hpf (0-2); Glucose Urine UA Negative (Negative); Ketones Urine Negative (Negative); Leukocyte Esterase Urine 3+ (Negative); Nitrite Urine Negative (Negative); Protein Urine Negative (Negative); Specific Gravity Urine 1.006 (1.000-1.030); Starch Talc Urine Present (None Prsent); Urobilinogen Urine Negative (Negative); WBC Urine Automated >50 /hpf (0-5); pH Urine 5.5 (4.5-7.5)
[2024-05-30 13:26] LABS: Basophils # (auto) 0.03 K/uL (0.00-0.20); Basophils % (auto) 0.5 %; Eosinophils # (auto) 0.21 K/uL (0.00-0.50); Eosinophils % (auto) 3.5 %; Hematocrit (blood only) 39.3 % (37.0-47.0); Hemoglobin 12.8 g/dl (12.0-16.0); Immature Granulocytes # (auto) 0.03 K/uL (0.01-0.20); Immature Granulocytes % (auto) 0.5 %; Lymphocytes # (auto) 0.52 K/uL (1.20-3.40); Lymphocytes % (auto) 8.6 %; Mean Corpuscular Hemoglobin 30.1 pg (25.0-34.0); Mean Corpuscular Hgb Conc 32.6 g/dL (32.0-36.0); Mean Corpuscular Volume 92.5 fL (80.0-100.0); Mean Platelet Volume 11.2 fL (9.4-12.4); Monocytes # (auto) 0.85 K/uL (0.11-0.59); Monocytes % (auto) 14.1 %; Neutrophils # (auto) 4.38 K/uL (1.40-6.50); Neutrophils % (auto) 72.8 %; Platelet Count 109 K/uL (130-400); RDW Coefficient of Variation 13.8 % (11.5-14.5); RDW Standard Deviation 46.9 fL (36.4-46.3); Red Blood Count 4.25 M/uL (4.20-5.40); White Blood Count 6.02 K/ul (4.8-10.8)
[2024-05-30 13:41] LABS: Alanine Aminotransferase 13 U/L (7-52); Albumin Globulin Ratio 1.2 (0.9-2); Albumin Level 3.8 gm/dl (3.4-5.0); Alkaline Phosphatase 73 U/L (34-104); Anion Gap 8 (3-11); Aspartate Aminotransferase 13 U/L (13-39); BUN Creatinine Ratio 26.4 (10-20); Bilirubin,Total 0.7 mg/dl (0.2-1.0); Blood Urea Nitrogen 23 mg/dl (6-23); Calcium 8.9 mg/dl (8.6-10.3); Carbon Dioxide 28 mmol/L (21-32); Chloride 99 mmol/L (98-107); Est GFR (African American) 68.5 ml/min; Est GFR (Non-African American) 59.1 ml/min; Globulin 3.1 gm/dl (2.5-4.0); Glucose 131 mg/dl (70-99(Fasting)); Lipase 17 U/L (11-82); Potassium 4.1 mmol/L (3.5-5.1); Sodium 135 mmol/L (136-145); Total Protein 6.9 gm/dl (6.0-8.3)
--- NOTE | 2024-05-30 13:47 | XRay Report ---
XR chest 2V PA/lateral CLINICAL HISTORY: Chest pain, nonspecific, r/o pnx TECHNIQUE: 2 views of the chest were obtained. Comparison: Comparison is made to chest 06/06/2023 FINDINGS: Exam is limited by underpenetration. Cardiomegaly is noted. The aortic arch is calcified. The lungs a re clear. No evidence of pleural effusion or pneumothorax. IMPRESSION: No acute chest disease. Cardiomegaly is noted. ACT 112: Negative or not required by law. Electronically signed by: Aly Fajardo M.D. 05/30/2024 1:45 PM
[2024-05-30 13:48] LABS: Troponin I High Sensitivity 10.2 pg/ml (0-14)
[2024-05-30 13:58] LABS: D Dimer 480 ug/L FEU (0-500)
[2024-05-30] MEDS: cefTRIAXone SODIUM 1,000 MG/50 ML BAG IV SCH (14:44)
--- NOTE | 2024-05-30 15:50 | History & Physical Report ---
Date of Service May 30, 2024 Assessment & Plan (1) E. 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 Patient also has some evidence of decompensated heart failure. Patient is at high risk for worsening of her condition, possible sepsis and possible further decompensation of heart failure she is not treated in the hospital. Care for MedSurg unit Continue Rocephin IV for treatment of UTI Follow blood cultures 1 dose of IV Lasix today then resume her oral Lasix of 40 mg daily Continue to monitor INR, dose warfarin appropriately Therapies Discussed advanced directives with patient and daughter at bedside, patient states that she would wish to be DNR/DNI Continue other outpatient medications as ordered History of Present Illness Chief Complaint: Weakness, fatigue, some shortness of breath and UTI Primary Care Provider: Duong Looney MD Patient is 88-year-old female still living independently on Saturday started noticing some urinary frequency, some burning and some incontinence. Patient has a history of recurrent UTIs and has a standing order to get a urine culture and start Macrobid. After dropping off her urine culture she started the Macrobid. Her urine culture did grew out E. coli, unfortunately, it was 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 sensitivity to the Macrodantin. Her outpatient provider did call in some Bactrim for treatment, the patient did pick it up but did not start it yet. Came to the emergency room today because she still was feeling sick and ill and weak. Also having some shortness of breath. In the emergency room urinalysis was abnormal. Chest x-ray question some congestion. Due to her overall symptoms was referred to our service for further evaluation. Time of my evaluation patient is feeling a little bit better. Her daughter is at the bedside and contributed to the HPI. She denies any fever at home does admit to being chilled but no rigors. Daughter did state that the patient did not take her double dose of Lasix for 2 times this week over the past 4 days. Her weight was up about 2 to 3 pounds from a week ago. Daughter did confirm that they did fruit or nut picker the Bactrim but has not started that yet. She denies any chest pain. Just more fatigue and weakness. Appetite has been decreased over the last 24 hours. No new problems with her bowels. Have not really noticed a lot of swelling in her lower extremities. Allergies Allergy/AdvReac Type Severity Reaction Status Date / Time vancomycin Allergy Severe ANAPHYLAXIS Verified 05/30/24 15:17 adhesive Allergy Intermediate RED AND Verified 05/30/24 15:17 ITCHY SKIN latex Allergy Intermediate Rash Verified 05/30/24 15:17 Penicillins Allergy Intermediate SWELLING Verified 05/30/24 15:17 PER GMG lisinopril AdvReac Intermediate Cough Verified 05/30/24 15:17 prednisone AdvReac Intermediate INCREASED Verified 05/30/24 15:17 HER RECTAL BLEEDING Home Medications Medication Instructions Recorded Confirmed Type acetaminophen 500 mg tablet 1,000 mg PO Q6H PRN Pain 06/06/23 06/06/23 History (Tylenol Extra Strength) albuterol sulfate 90 mcg/actuation 2 puff inhalation Q4 PRN Shortness 06/06/23 06/06/23 History aerosol inhaler Of Breath Or Wheezing atorvastatin 10 mg tablet 10 mg PO HS 06/06/23 06/06/23 History furosemide 20 mg tablet 20 mg PO 3XWK 06/06/23 06/06/23 History furosemide 20 mg tablet 40 mg PO 4XWK 06/06/23 06/06/23 History gabapentin 300 mg capsule 300 mg PO BID 06/06/23 06/06/23 History gabapentin 300 mg capsule 600 mg PO HS 06/06/23 06/06/23 History lorazepam 1 mg tablet 1 mg PO HS 06/06/23 06/06/23 History losartan 25 mg tablet 25 mg PO DAILY 06/06/23 06/06/23 History metformin 500 mg tablet,extended 500 mg PO BIDM 06/06/23 05/30/24 History release 24 hr solifenacin 5 mg tablet 5 mg PO QAM 06/06/23 05/30/24 History vit C 250 mg-vit E 90 mg-zinc 40 1 tab PO BIDM 06/06/23 05/30/24 History mg-copper 1 on-apipfr-fxpzva capsule (PreserVision AREDS-2) warfarin 5 mg tablet 5 mg PO QPM 06/06/23 05/30/24 History nystatin 100,000 unit/gram topical 1 applic topical BID PRN ABD FOLDS 05/30/24 05/30/24 History powder (Nyamyc) NEEDED sulfamethoxazole 800 1 tab PO BID 05/30/24 05/30/24 History mg-trimethoprim 160 mg tablet Past Med/Surg History Problem List (Updated 05/30/24 @ 15:48 by Jesus Manuel Bailey DO) Acute on chronic heart failure with preserved ejection fraction E. coli urinary tract infection Pulmonary edema cardiac cause Aortic stenosis, mild Pulmonary HTN Aspiration into airway History of pulmonary embolism Paroxysmal atrial fibrillation Encounter for pre-operative examination Dysphagia Food impaction of esophagus Respiratory failure Hypoxia (Acute) Acute GI bleeding (Acute) Supratherapeutic INR (Acute) Abscess of breast, right (Acute) Abscess DVT prophylaxis Coagulopathy Upper GI bleed Hyperlipidemia Hypertension History of DVT (deep vein thrombosis) History of TIA (transient ischemic attack) DM type 2 (diabetes mellitus, type 2) Medical History (Updated 05/30/24 @ 15:48 by Jesus Manuel Bailey DO) History of uterine cancer Diabetic neuropathy 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 COPD with asthma Surgical History History of cholecystectomy History of back surgery History of tubal ligation History of hysterectomy History of cataract surgery History of total left knee replacement History of total right knee replacement Family History Mother Heart disease Social History Smoking Status: Former smoker Tobacco Type: Cigarettes Hx Alcohol Use: No Hx Substance Use: No Preferred Language: Bulgarian Communication Ability: Effective Communication Ability Comment: hearing deficit Lead Esthetician Required: No Beliefs That Will Affect Care: None marital status: / Current Living Situation: Family current occupational status: retired Feels Safe at Home: Yes Assistive Devices: Cane Physical Exam Physical Exam: Constitutional: Alert, ill in appearance, nontoxic HEENT: Mucous membranes moist. Sclera clear Neck: Soft, no adenopathy Lungs: Decreased breath sounds, right greater than left CV: S1-S2, regular rate, irregular rhythm Abdomen: Soft, nontender, nondistended Extremities: Patient has have some pitting edema and posterior thighs Musculoskeletal: No significant joint tenderness Neuro: No focal deficits, generalized weakness Psych: Cooperative, normal mood, fatigued Results & Data Results & Data Vital Signs (Past 12 Hours) Vital Signs Temp Pulse Resp BP Pulse Ox O2 Del Method O2 Flow Rate 05/30/24 15:03 77 21 155/71 H 92 05/30/24 14:03 67 22 149/59 H 91 05/30/24 13:54 75 21 138/79 91 05/30/24 12:51 69 20 92 05/30/24 12:43 73 05/30/24 12:40 96 Nasal Cannula 2 05/30/24 12:24 74 19 96 05/30/24 11:37 36.6 C 82 18 172/83 H 90 Diagnostic Findings Reviewed imaging, laboratory and diagnostic studies. Pertinent findings as below. Reviewed outpatient EMR, urine culture did grow greater than 100,000 colonies of E. coli sensitive to all antibiotics except 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 to Macrodantin. WBCs 6.0 Sodium 135 Creatinine 0.87 Glucose 131 BNP 148 Urinalysis reviewed Respiratory viral panel negative Personally reviewed chest x-ray images, appears to be some congestion and edema in the lower lobes right greater than left Personally reviewed EKG, atrial fibrillation with controlled ventricular response INR pending Reviewed echocardiogram from 2023 in outpatient EMR, ejection fraction 60% some valvular dysfunction Code Status & VTE Plan VTE Prophylaxis Plan VTE Prophylaxis will be ordered: No Reason for no VTE drug order: Treatment not indicated
[2024-05-30 16:37] LABS: INR 1.9 (0.9-1.1); Prothrombin Time 19.5 Seconds (9.0-12.0)
[2024-05-30] MEDS ORDERED: ONDANSETRON INJ 2 MG/ML 2 ML VIAL IV PRN (17:57)
[2024-05-30] MEDS ORDERED: CARBOHYDRATES FOR HYPOGLYCEMIA PO PRN (17:57)
[2024-05-30] MEDS ORDERED: ALBUTEROL HFA 8 GM INHALER INH PRN (17:57)
[2024-05-30] MEDS ORDERED: GLUCOSE 40% GEL 15 GM TUBE PO PRN (17:57)
[2024-05-30] MEDS ORDERED: GLUCOSE 10 TAB/TUBE PO PRN (17:57)
[2024-05-30] MEDS ORDERED: ALUMINUM/MAGNESIUM SUSP 30 ML UDC PO PRN (17:57)
[2024-05-30] MEDS ORDERED: DEXTROSE 50% 50 ML SYRINGE IV PRN (17:57)
[2024-05-30] MEDS ORDERED: GLUCAGON FOR INJ 1 MG VIAL SQ PRN (17:57)
[2024-05-30] MEDS ORDERED: Patient's HEIGHT &/or WEIGHT Needed SCH (18:15)
[2024-05-30] MEDS: INSULIN ASPART PER UNIT CHARGE SC SCH (19:04)
[2024-05-30] MEDS: DOXYCYCLINE HYCLATE 100 MG in DEXTROSE 5% MINI-B 100 ML IV STA (19:50)
[2024-05-30] MEDS: WARFARIN SOD 5 MG TAB PO SCH (20:28)
[2024-05-30] MEDS: ATORVASTATIN 10 MG TAB PO SCH (20:29)
[2024-05-30] MEDS: GABAPENTIN 400 MG CAP PO SCH (20:29)
[2024-05-30] MEDS: FUROSEMIDE 40 MG/4 ML VIAL IV STA (21:11)
[2024-05-30] MEDS: FUROSEMIDE 40 MG/4 ML VIAL IV ONE (21:15)
[2024-05-30] MEDS: LORazepam 1 MG TAB PO SCH (21:17)
[2024-05-31 06:47] LABS: Albumin Globulin Ratio 1.2 (0.9-2); Albumin Level 3.4 gm/dl (3.4-5.0); BUN Creatinine Ratio 26.8 (10-20); Bilirubin,Total 0.7 mg/dl (0.2-1.0); Calcium 8.7 mg/dl (8.6-10.3); Est GFR (African American) 73.5 ml/min; Est GFR (Non-African American) 63.4 ml/min; Globulin 2.8 gm/dl (2.5-4.0); Magnesium 1.6 mg/dl (1.7-2.4); Potassium 3.9 mmol/L (3.5-5.1); Total Protein 6.2 gm/dl (6.0-8.3)
[2024-05-31 07:21] LABS: Prothrombin Time 20.6 Seconds (9.0-12.0)
[2024-05-31] MEDS ORDERED: NON-FORMULARY MEDICATION (Fluticasone-Umeclidin-Vilanter [Trelegy Ellipta] 200-62.5-25 mcg INH SCH (09:00)
[2024-05-31] MEDS ORDERED: FUROSEMIDE 40 MG TAB PO SCH (09:00)
[2024-05-31] MEDS ORDERED: MICONAZOLE NITRATE POWDER 85 GM EXT PRN (09:08)
[2024-05-31] MEDS: OXYBUTYNIN CHLORIDE XL 5 MG TABCR PO SCH (10:02)
[2024-05-31] MEDS: LOSARTAN POTASSIUM 25 MG TAB PO SCH (10:02)
[2024-05-31] MEDS: POTASSIUM CHLORIDE 10 MEQ TABCR PO SCH (10:02)
[2024-05-31] MEDS: FLUTICASONE FUROATE 200MCG 14 PUFFS/INHALER INH SCH (10:03)
[2024-05-31] MEDS: UMECLIDINIUM/VILANTEROL 62.5/25MCG 7 PUFFS/INHALER INH SCH (10:03)
[2024-05-31] MEDS: FUROSEMIDE 40 MG/4 ML VIAL IV ONE (10:08)
[2024-05-31] MEDS: MAGNESIUM SULFATE / D5W 1 GM/100 ML BAG IV SCH (10:16)
[2024-05-31] MEDS: cefTRIAXone SODIUM 2,000 MG/50 ML BAG IV SCH (14:06)
--- NOTE | 2024-05-31 15:42 | Hospitalist Progress Note ---
Date of Service May 31, 2024 Assessment & Plan (1) Acute on chronic heart failure with preserved ejection fraction: (2) E. coli urinary tract infection: (3) Pulmonary HTN: (4) [facility] current use of anticoagulant: (5) DM type 2 (diabetes mellitus, type 2): (6) Paroxysmal atrial fibrillation: Plan 88-year-old female still living independently who presented to the ED feeling sick, ill and weak. Had urinary symptoms since Saturday and was started on Macrobid, however urine clx showed E coli 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 to it and was switched to bactrim but did not get a chance to pick bactrim yet. Also had been doubling the dose of home lasix due to shortness of breath and leg swelling. Acute on chronic diastolic CHF with hypoxia- BNP 148, has dyspnea, hypoxia and weight gain. Prior echo 2020. Will repeat echo. Will continue iv lasix for today and reassess volume status tomorrow. Continue potassium supplementation while on lasix. Continue daily weight, I and Os, daily labs. Continue supplemental oxygen, wean down as tolerated. IS, flutter valve E coli UTI- continue ceftriaxone inhouse D1/5. Change to po at discharge PAF on coumadin- INR therapeutic. Continue coumadin, daily INR. Rate stable and not on AV zulma blockers. DM-2- continue carb controlled diet, insulin. Will adjust as indicated HTN- stable, on losartan Hypomagnesemia- repleted, recheck in am DVT ppx- INR therapeutic on coumadin Dispo- Pending optimization of volume status and hypoxia. continue iv diuresis and iv antibiotics. PT OT annie. Updated niece at bedside Time spent- approx 40 mins Admission and Anticipated Discharge Date Admission Date: May 30, 2024 Subjective Patient was seen and examined at bedside in presence of niece. Feels about the same. Still dyspneic and desaturation with ambulation. Still on NC. No fever, chills, CP, N/V. Discussed the plan of care for more diuresis and IV antibiotics. Review of Systems Review of Systems: All systems reviewed & are unremarkable except as noted in Subjective Physical Exam Physical Exam: General: Sitting comfortably in chair, not in distress, on NC HEENT: EOMI, SUSAN, MMM Chest: Fair breath sounds bilaterally with basilar rales CVS: Regular rate and rhythm, normal heart sounds, no murmur Abdomen: Soft, non tender, not distended, normal bowel sounds Neuro: Awake, alert, oriented, conversing well. Hard of hearing Extremities: Trace edema Results & Data Results & Data Vital Signs (Past 12 Hours) Vital Signs Temp Pulse Resp BP Pulse Ox Pulse Ox O2 Del Method 05/31/24 14:05 88 L 05/31/24 07:21 37.0 C 64 18 145/70 H 93 Nasal Cannula O2 Flow Rate O2 Flow Rate 05/31/24 14:05 2 05/31/24 07:21 2 Laboratory Results [facility] 05/31/24 06:09 Sodium 140 Potassium 3.9 Chloride 103 Carbon Dioxide 31 BUN 22 Creatinine 0.82 Glucose 126 H Calcium 8.7 Liver Function 05/31/24 Range/Units 06:09 Total Bilirubin 0.7 (0.2-1.0) mg/dl AST 10 L (13-39) U/L ALT 10 (7-52) U/L Alkaline Phosphatase 58 (34-104) U/L Albumin 3.4 (3.4-5.0) gm/dl
[2024-05-31] MEDS: ACETAMINOPHEN 325 MG TAB PO PRN (20:56)
[2024-06-01 06:53] LABS: Hematocrit (blood only) 36.8 % (37.0-47.0); Hemoglobin 11.7 g/dl (12.0-16.0); Mean Corpuscular Hemoglobin 29.8 pg (25.0-34.0); Mean Corpuscular Hgb Conc 31.8 g/dL (32.0-36.0); Mean Corpuscular Volume 93.6 fL (80.0-100.0); Mean Platelet Volume 10.2 fL (9.4-12.4); Platelet Count 123 K/uL (130-400); RDW Coefficient of Variation 13.3 % (11.5-14.5); RDW Standard Deviation 45.8 fL (36.4-46.3); Red Blood Count 3.93 M/uL (4.20-5.40); White Blood Count 4.63 K/ul (4.8-10.8)
[2024-06-01 07:16] LABS: BUN Creatinine Ratio 30.8 (10-20); Calcium 8.7 mg/dl (8.6-10.3); Creatinine Clr Calc Pharmacy 43.8 ml/min; Est GFR (African American) 53.3 ml/min; Phosphorus 4.2 mg/dl (2.5-4.9); Potassium 3.9 mmol/L (3.5-5.1)
[2024-06-01] MEDS: POLYETHYLENE (MIRALAX) 17 GM PACK PO SCH (11:58)
--- NOTE | 2024-06-01 16:18 | Hospitalist Progress Note ---
Date of Service June 01, 2024 Assessment & Plan (1) Acute on chronic heart failure with preserved ejection fraction: (2) E. coli urinary tract infection: (3) Pulmonary HTN: (4) [facility] use of [facility]: (5) DM type 2 (diabetes mellitus, type 2): (6) Paroxysmal atrial fibrillation: Plan 88-year-old female still living independently who presented to the ED feeling sick, ill and weak. Had urinary symptoms since Saturday and was started on Macrobid, however urine clx showed E coli 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 to it and was switched to bactrim but did not get a chance to pick bactrim yet. Also had been doubling the dose of home lasix due to shortness of breath and leg swelling. Acute on chronic diastolic CHF with hypoxia- BNP 148, had dyspnea, hypoxia and weight gain. Prior echo 2020. S/p iv lasix with resolution of symptoms. Will start po lasix from tomorrow. Continue daily weight, I and Os, daily labs. 2 step O2 eval shows she needs 2L with oxygen and none at rest. Will order overnight pulse oximetry per RT recommendation due to her hypoxia while sleeping. Continue IS, flutter valve E coli UTI- continue ceftriaxone inhouse D2/5. Change to po at discharge PAF on coumadin- INR therapeutic. Continue coumadin, daily INR. Rate stable and not on AV zulma blockers. DM-2- continue carb controlled diet, insulin. Will adjust as indicated HTN- stable, on losartan Hypomagnesemia- resolved DVT ppx- INR therapeutic on coumadin Dispo- pending nocturnal pulse oximetry. Anticipate discharge home tomorrow on oxygen. Time spent- approx 35 mins Admission and Anticipated Discharge Date Admission Date: May 30, 2024 Subjective Patient was seen and examined at bedside. States she is feeling better. Dyspnea improved. Edema improved. Per 2 step O2 eval, she does not need any oxygen at rest but 2 L with exertion. Respiratory therapist noted she was 84% when sleeping and they recommended nocturnal pulse oximetry. Review of Systems Review of Systems: All systems reviewed & are unremarkable except as noted in Subjective Physical Exam Physical Exam: General: Sitting comfortably in chair, not in distress HEENT: EOMI, SUSAN, MMM Chest: Fair breath sounds bilaterally with basilar rales CVS: Regular rate and rhythm, normal heart sounds, no murmur Abdomen: Soft, non tender, not distended, normal bowel sounds Neuro: Awake, alert, oriented, conversing well. Hard of hearing Extremities: Trace edema Results & Data Results & Data Vital Signs (Past 12 Hours) Vital Signs Temp Pulse Pulse Pulse Pulse Resp Resp 06/01/24 15:10 36.8 C 88 18 06/01/24 14:19 92 H 82 74 20 06/01/24 07:45 06/01/24 07:04 36.4 C L 67 18 Resp Resp BP Pulse Ox Pulse Ox Pulse Ox Pulse Ox 06/01/24 15:10 163/68 H 95 06/01/24 14:19 20 18 90 84 L 90 06/01/24 07:45 06/01/24 07:04 135/74 97 O2 Del Method O2 Flow Rate O2 Flow Rate 06/01/24 15:10 Nasal Cannula 2 06/01/24 14:19 2 06/01/24 07:45 Nasal Cannula 2 06/01/24 07:04 Nasal Cannula 2 Laboratory Results Short CBC 06/01/24 Range/Units 06:33 WBC 4.63 L (4.8-10.8) K/ul Hgb 11.7 L (12.0-16.0) g/dl Hct 36.8 L (37.0-47.0) % Plt Count 123 L (130-400) K/uL BMP 06/01/24 06:33 Sodium 139 Potassium 3.9 Chloride 102 Carbon Dioxide 32 BUN 33 H Creatinine 1.07 Glucose 122 H Calcium 8.7
--- NOTE | 2024-06-01 22:55 | Electrocardiogram Report ---
Test Reason : Blood Pressure : / mmHG Vent. Rate : 068 BPM Atrial Rate : 000 BPM P-R Int : 000 ms QRS Dur : 066 ms QT Int : 374 ms P-R-T Axes : 000 026 008 degrees QTc Int : 397 ms Atrial fibrillation Low voltage QRS Cannot rule out Anterior infarct (cited on or before 30-MAY-2024) Abnormal ECG When compared with ECG of 06-JUN-2023 11:20, No significant change was found Confirmed by King Matute [id number]) on 06/01/2024 10:55:28 PM Referred By: REFERRED SELF Confirmed By:King Matute
[2024-06-02 06:28] LABS: Hematocrit (blood only) 36.8 % (37.0-47.0); Hemoglobin 11.8 g/dl (12.0-16.0); Mean Corpuscular Hemoglobin 29.7 pg (25.0-34.0); Mean Corpuscular Hgb Conc 32.1 g/dL (32.0-36.0); Mean Corpuscular Volume 92.7 fL (80.0-100.0); Mean Platelet Volume 10.2 fL (9.4-12.4); Platelet Count 136 K/uL (130-400); RDW Coefficient of Variation 13.4 % (11.5-14.5); RDW Standard Deviation 45.6 fL (36.4-46.3); Red Blood Count 3.97 M/uL (4.20-5.40); White Blood Count 5.17 K/ul (4.8-10.8)
[2024-06-02 06:34] LABS: BUN Creatinine Ratio 34.7 (10-20); Calcium 8.9 mg/dl (8.6-10.3); Creatinine Clr Calc Pharmacy 47.8 ml/min; Est GFR (African American) 59.3 ml/min; Est GFR (Non-African American) 51.1 ml/min; Magnesium 1.9 mg/dl (1.7-2.4); Potassium 4.2 mmol/L (3.5-5.1)
[2024-06-02 06:48] LABS: INR 2.8 (0.9-1.1); Prothrombin Time 27.3 Seconds (9.0-12.0)
[2024-06-02] MEDS: FUROSEMIDE 40 MG TAB PO SCH (10:57)
--- NOTE | 2024-06-02 12:15 | Discharge Summary ---
Date of Service June 02, 2024 Admission HPI Per Admitting Provider Patient is 88-year-old female still living independently on Saturday started noticing some urinary frequency, some burning and some incontinence. Patient has a history of recurrent UTIs and has a standing order to get a urine culture and start Macrobid. After dropping off her urine culture she started the Macrobid. Her urine culture did grew out E. coli, unfortunately, it was 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 sensitivity to the Macrodantin. Her outpatient provider did call in some Bactrim for treatment, the patient did pick it up but did not start it yet. Came to the emergency room today because she still was feeling sick and i ll and weak. Also having some shortness of breath. In the emergency room urinalysis was abnormal. Chest x-ray question some congestion. Due to her overall symptoms was referred to our service for further evaluation. Time of my evaluation patient is feeling a little bit better. Her daughter is at the bedside and contributed to the HPI. She denies any fever at home does admit to being chilled but no rigors. Daughter did state that the patient did not take her double dose of Lasix for 2 times this week over the past 4 days. Her weight was up about 2 to 3 pounds from a week ago. Daughter did confirm that they did brick picker the Bactrim but has not started that yet. She denies any chest pain. Just more fatigue and weakness. Appetite has been decreased over the last 24 hours. No new problems with her bowels. Have not really noticed a lot of swelling in her lower extremities. Admission Exam Per Admitting Provider Constitutional: Alert, ill in appearance, nontoxic HEENT: Mucous membranes moist. Sclera clear Neck: Soft, no adenopathy Lungs: Decreased breath sounds, right greater than left CV: S1-S2, regular rate, irregular rhythm Abdomen: Soft, nontender, nondistended Extremities: Patient has have some pitting edema and posterior thighs Musculoskeletal: No significant joint tenderness Neuro: No focal deficits, generalized weakness Psych: Cooperative, normal mood, fatigued Principal Diagnosis Acute diastolic CHF exacerbation, UTI Discharge Exam General: Seen ambulating independently with walker, not in distress, on room air HEENT: EOMI, SUSAN, MMM Chest: Fair breath sounds bilaterally CVS: Regular rate and rhythm, normal heart sounds, no murmur Abdomen: Soft, non tender, not distended, normal bowel sounds Neuro: Awake, alert, oriented, conversing well. Hard of hearing Extremities: No edema Discharge Data Allergies Allergy/AdvReac Type Severity Reaction Status Date / Time vancomycin Allergy Severe ANAPHYLAXIS Verified 05/30/24 15:17 adhesive Allergy Intermediate RED AND Verified 05/30/24 15:17 ITCHY SKIN latex Allergy Intermediate Rash Verified 05/30/24 15:17 Penicillins Allergy Intermediate SWELLING Verified 05/30/24 15:17 PER GMG lisinopril AdvReac Intermediate Cough Verified 05/30/24 15:17 prednisone AdvReac Intermediate INCREASED Verified 05/30/24 15:17 HER RECTAL BLEEDING Consultations 05/30/24 15:07 ED Decision to Admit Stat Ordered Studies Laboratory Results WBC 5.17 K/ul (4.8-10.8) 06/02/24 05:34 RBC 3.97 M/uL (4.20-5.40) L 06/02/24 05:34 Hgb 11.8 g/dl (12.0-16.0) L 06/02/24 05:34 Hct 36.8 % (37.0-47.0) L 06/02/24 05:34 MCV 92.7 fL (80.0-100.0) 06/02/24 05:34 MCH 29.7 pg (25.0-34.0) 06/02/24 05:34 MCHC 32.1 g/dL (32.0-36.0) 06/02/24 05:34 RDW Std Deviation 45.6 fL (36.4-46.3) 06/02/24 05:34 RDW Coeff of Ata 13.4 % (11.5-14.5) 06/02/24 05:34 Plt Count 136 K/uL (130-400) 06/02/24 05:34 MPV 10.2 fL (9.4-12.4) 06/02/24 05:34 Immature Gran % (Auto) 0.5 % 05/30/24 11:59 Neut % (Auto) 72.8 % 05/30/24 11:59 Lymph % (Auto) 8.6 % 05/30/24 11:59 [place] % (Auto) 14.1 % 05/30/24 11:59 Eos % (Auto) 3.5 % 05/30/24 11:59 Baso % (Auto) 0.5 % 05/30/24 11:59 Neut # (Auto) 4.38 K/uL (1.40-6.50) 05/30/24 11:59 Lymph # (Auto) 0.52 K/uL (1.20-3.40) L 05/30/24 11:59 [place] # (Auto) 0.85 K/uL (0.11-0.59) H 05/30/24 11:59 Eos # (Auto) 0.21 K/uL (0.00-0.50) 05/30/24 11:59 Baso # (Auto) 0.03 K/uL (0.00-0.20) 05/30/24 11:59 Immature Gran # (Auto) 0.03 K/uL (0.01-0.20) 05/30/24 11:59 PT 27.3 Seconds (9.0-12.0) H 06/02/24 05:34 INR 2.8 (0.9-1.1) H 06/02/24 05:34 D-Dimer 480 ug/L FEU (0-500) 05/30/24 11:59 Sodium 138 mmol/L (136-145) 06/02/24 05:34 Potassium 4.2 mmol/L (3.5-5.1) 06/02/24 05:34 Chloride 104 mmol/L (98-107) 06/02/24 05:34 Carbon Dioxide 28 mmol/L (21-32) 06/02/24 05:34 Anion Gap 6 (3-11) 06/02/24 05:34 BUN 34 mg/dl (6-23) H 06/02/24 05:34 Creatinine 0.98 mg/dl (0.6-1.2) 06/02/24 05:34 Est Cr Clr Drug Dosing 47.8 ml/min 06/02/24 05:34 Est GFR ( Amer) 59.3 ml/min 06/02/24 05:34 Est GFR (Non-Af Amer) 51.1 ml/min 06/02/24 05:34 BUN/Creatinine Ratio 34.7 (10-20) H 06/02/24 05:34 Glucose 136 mg/dl (70-99(Fasting)) H 06/02/24 05:34 POC Glucose 172 mg/dl (70-99) H 06/02/24 11:20 Calcium 8.9 mg/dl (8.6-10.3) 06/02/24 05:34 Phosphorus 4.2 mg/dl (2.5-4.9) 06/01/24 06:33 Magnesium 1.9 mg/dl (1.7-2.4) 06/02/24 05:34 Total Bilirubin 0.7 mg/dl (0.2-1.0) 05/31/24 06:09 AST 10 U/L (13-39) L 05/31/24 06:09 ALT 10 U/L (7-52) 05/31/24 06:09 Alkaline Phosphatase 58 U/L (34-104) 05/31/24 06:09 Troponin I High Sens 10.2 pg/ml (0-14) 05/30/24 11:59 B-Natriuretic Peptide 148 pg/ml (0-100) H 05/30/24 12:49 Total Protein 6.2 gm/dl (6.0-8.3) 05/31/24 06:09 Albumin 3.4 gm/dl (3.4-5.0) 05/31/24 06:09 Globulin 2.8 gm/dl (2.5-4.0) 05/31/24 06:09 Albumin/Globulin Ratio 1.2 (0.9-2) 05/31/24 06:09 Lipase 17 U/L (11-82) 05/30/24 11:59 Urine Color Yellow 05/30/24 11:50 Urine Appearance Cloudy (Clear) A 05/30/24 11:50 Urine pH 5.5 (4.5-7.5) 05/30/24 11:50 Ur Specific [place] 1.006 (1.000-1.030) 05/30/24 11:50 Urine Protein Negative (Negative) 05/30/24 11:50 Urine Glucose (UA) Negative (Negative) 05/30/24 11:50 Urine Ketones Negative (Negative) 05/30/24 11:50 Urine Blood 2+ (Negative) H 05/30/24 11:50 Urine Nitrite Negative (Negative) 05/30/24 11:50 Urine Bilirubin Negative (Negative) 05/30/24 11:50 Urine Urobilinogen Negative (Negative) 05/30/24 11:50 Ur Leukocyte Esterase 3+ (Negative) H 05/30/24 11:50 Urine WBC (Auto) >50 /hpf (0-5) H 05/30/24 11:50 Urine RBC (Auto) 3-5 /hpf (0-2) H 05/30/24 11:50 U Hyaline Cast (Auto) 0-2 /lpf (0-2) 05/30/24 11:50 U Epithel Cells (Auto) 0-2 /hpf (0-2) 05/30/24 11:50 Urine Bacteria (Auto) None Seen (None Seen) 05/30/24 11:50 Talc Crystals Present (None Prsent) H 05/30/24 11:50 SARS-CoV-2 (PCR) NEGATIVE (Negative) 05/30/24 11:53 Influenza Type A (PCR) Negative (Neg) 05/30/24 11:53 Influenza Type B (PCR) Negative (Neg) 05/30/24 11:53 RSV (RT-PCR) Negative (Neg) 05/30/24 11:53 Impressions Chest X-Ray 05/30/24 12:40 XR chest 2V PA/lateral CLINICAL HISTORY: Chest pain, nonspecific, r/o pnx TECHNIQUE: 2 views of the chest were obtained. Comparison: Comparison is made to chest 06/06/2023 FINDINGS: Exam is limited by underpenetration. Cardiomegaly is noted. The aortic arch is c alcified. The lungs are clear. No evidence of pleural effusion or pneumothorax. IMPRESSION: No acute chest disease. Cardiomegaly is noted. ACT 112: Negative or not required by law. Electronically signed by: Aly Fajardo M.D. 05/30/2024 1:45 PM Hospital Course (1) Acute on chronic heart failure with preserved ejection fraction: (2) E. coli urinary tract infection: (3) Pulmonary HTN: (4) half-way current use of anticoagulant: (5) DM type 2 (diabetes mellitus, type 2): (6) Paroxysmal atrial fibrillation: Plan 88-year-old female still living independently who presented to the ED feeling sick, ill and weak. Had urinary symptoms since Saturday and was started on Macrobid, however urine clx showed E coli 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 to it and was switched to bactrim but did not get a chance to pick bactrim yet. Also had been doubling the dose of home lasix due to shortness of breath and leg swelling. Acute on chronic diastolic CHF with hypoxia- BNP 148, had dyspnea, hypoxia and weight gain. Echo with normal EF, severe biatrial enlargement but no significant valvular abnormality. S/p iv lasix with resolution of symptoms. Started on po lasix from today, will change home lasix to 40 mg daily and recommend OP follow up with PCP with repeat BMP in a week. Discharge weight 209 kg, Cr 1. - 2 step O2 eval shows she needs 2L with oxygen and none at rest. Overnight pulse oximetry showed multiple desaturation events. Recommended OP sleep study. Discharging on home oxygen for ambulation and naps/bedtime. E coli UTI- S/p iv ceftriaxone inhouse. Urine clx here was not definitive however OP urine clx was. Recommend bactrim for 3 more days at discharge. PAF on coumadin- INR therapeutic. Continue coumadin. Rate stable and not on AV zulma blockers. DM-2- continue home medications HTN- stable, on losartan Hypomagnesemia- resolved Comfortable and stable for discharge home. Daughter at bedside. Reviewed discharge recommendations and plan of care. Total Time Total Time Spent Total Time Spent (In Minutes): 32 Discharge Plan Discharge Items Patient Disposition: Home - Home Health Services Reason For Visit: UTI Discharge Diagnosis: Acute diastolic CHF exacerbation, UTI Activity: Resume your previous activity Non-emergency contact: Primary Care Provider Call non-emergency contact if: you have any medication questions and your symptoms worsen Follow-up/Referrals: Duong Looney MD [Primary Care Provider] - 06/04/24 10:20 am (Date & Time 06/04/2024 10:20 AM Provider Duong Looney MD [facility] ) Diet: Heart Healthy and Low Sodium (2gm) Fluids: 1500ml (6 cups) Addtl Attending Provider Instructions: Complete the course of bactrim for 3 days for your UTI Follow up with your family doctor with repeat blood work (BMP in 5-7 days) You will need 2 L oxygen with ambulation and at night while sleeping per our testing here. Recommended sleep study as outpatient to see if you have sleep apnea. Follow up with your family doctor. Recommend Salt and fluid compliance as below Addtl Stone Decorator Provider Instructions: Call 911 and go to the Emergency Room if: * You have tightness or pain in your chest that does not go away with rest or Nitroglycerin * You are very short of breath even with rest Call your doctor if any of the following symptoms or problems start or get worse: * Shortness of breath or difficulty breathing * Wake up at night short of breath * Chest pain * Cough * Swelling of your hands, fee, or legs * More fatigued or tired with your normal activity * Palpitations - sudden fast heart beats WEIGHT * Weigh yourself every morning after using the bathroom. * Use the same scale. * Wear the same amount of clothing. * Write your weight down on your chart. * Call your doctor if you gain more than 2-3 pounds in 1-2 days. MEDICATIONS * Use this discharge instruction sheet for instructions. * Take your medications at the time your doctor ordered. * Do not skip a dose of your medicines. * If you miss a dose of medicine, take as soon as possible, but DO NOT DOUBLE A DOSE. * Read your medicine information when you get home. * Know all of the side effects of your medicine. * Call your doctor's office if you have any side effects. * Be sure all of your doctors know what medicine and herbs you take (including cold, flu, and herbal medicine). * Pain Medicine: If you do not get relief from your pain, please call your doctor for help. Take the following with you to your follow-up doctor appointments: * Weight Chart * Medication List * List of questions Do not drink excessive alcohol, beer or wine. Pending Studies at Discharge: No Stand-Alone Forms: My [facility], Smoking Cessation Medications and DC Order Prescriptions: Continued atorvastatin 10 mg tablet 10 mg PO HS acetaminophen [Tylenol Extra Strength] 500 mg Tablet 1,000 mg PO Q6H PRN (Reason: Pain) warfarin 5 mg Tablet 5 mg PO QPM Rx Instructions: IF TAKING BACTRIM DOSE CHANGES---5 MG SAT, SAT, & THURSDAYS, 2.5 MG SAT, Sat & SAT. as directed by anticoagulation clinic OTHER HUNTER NORMAL DOSE IS 5 MG DAILY losartan 25 mg Tablet 25 mg PO DAILY gabapentin 300 mg capsule 1,200 mg PO HS lorazepam 1 mg tablet 1 mg PO HS PRN (Reason: ANXIETY/SLEEP) albuterol sulfate 90 mcg/actuation HFA aerosol inhaler 2 puff INHALATION Q4 PRN (Reason: Shortness Of Breath Or Wheezing) metformin 500 mg tablet extended release 24 hr 500 mg PO BIDM solifenacin 5 mg tablet 5 mg PO QAM PreserVision AREDS-2 250-90-40-1 mg Capsule 1 tab PO BIDM sulfamethoxazole-trimethoprim 800-160 mg tablet 1 tab PO BID Rx Instructions: PER PT'S DAUGHTER "NEVER STARTED". nystatin [Nyamyc] 100,000 unit/gram powder 1 applic TOPICAL BID PRN (Reason: ABD FOLDS NEEDED) loperamide 2 mg Capsule 2 mg PO DIRECTED PRN (Reason: Diarrhea) Rx Instructions: administer after each loose stool until symptoms controlled; do not exceed 8 mg per 24 hrs triamcinolone acetonide 0.1 % Cream 1 applic TOPICAL BID PRN (Reason: SKIN IRRITATION NEEDED) Trelegy Ellipta 200-62.5-25 mcg Blister With Device 1 inh INHALATION DAILY Changed furosemide 20 mg tablet 40 mg PO DAILY Qty: 0 0RF No Action furosemide 20 mg tablet 20 mg PO 3XWK Rx Instructions: MON, WED, FRI Discharge Orders: Discharge Order (Routine); Ordered 06/02/24 Ordered By: Soy Lucio/Other Patient Handouts: UTIs Admission Data Admit Date/Time: 05/30/24 15:41 Attending Provider: Soy Bradley Admit Provider: Jesus Manuel Bailey Primary Care Provider: Duong Looney Other Providers: Jesus Manuel Bailey; [facility]Home [facility] Fax; IRB Approved Study,[place] Other Interventions: Discharge Summary Assessment (RN) Last Done: 06/02/24 11:54
== END 2024-06-02 12:59 | disposition home health service (06) | DRG 291 ==
LOC: ED 11:37 → 3N 15:41 → SUATTDRO 15:41 → 3N 17:23

== ENCOUNTER 2024-08-01 13:42 | Inpatient (IN) ==
--- OUTSIDE RECORDS SUMMARY | 2024-08-01 13:49 | External Medical Summary | Summary of Care ---
Author Name Unknown Organization [facility] Address [address] [place] [address] Phone [phone] Care Team Providers Care Laboratory Courier Name Role Phone Neema Looney MD Primary Care Provider Reason for Visit * Reason Onset Date Comments Advice 06/05/2024 Encounter Details Date Type Department Care Team (Late st Contact Info) Description 06/05/2024 Telephone [facility] [address] [place] [facility] [place] [address] Neema Looney MD [address] [place] [address] Advice Allergies Active Allergy Reactions Criticality Noted Date Comments Adhesive Tape 03/11/2003 redness Latex 01/18/2005 rash Lisinopril Cough Low 03/18/2014 Penicillins 07/14/1999 swelling Prednisone 04/20/2005 Pt says it makes her "bleed into her intestines" documented as of this encounter (statuses as of 06/11/2024) Medications Medication Sig Dispensed Refills Start Date End Date Status Blood Glucose Monitoring Suppl (CompassMDTOUCH ULTRA 2) w/Device KITIndications:Type 2 diabetes mellitus with hemoglobin A1c goal of less than 8.0% ([facility]) Use as directed to test blood [...] mellitus with diabetic neuropathy, unspecified whether 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 designer insulin use (HCC),Restless leg syndrome take 1 [...] 60 Blister Dosing Unit 11 10/09/2023 Active LORazepam 1 MG Oral Tablet (Ativan)Indications:A [...] goal of less than 8.0% ([facility]) TEST once daily E11.9 100 Strip 3 04/30/2024 Active Nystatin 549078 UNIT/GM External Powder (Nyamyc)Indications:C andidal skin infection [...] Use as directed.. 14 Tablet 05/28/2024 Active Polyethylene Glycol 3350 17 GM Oral Packet (MiraLax) Take 1 Packet by mouth in the morning. Active Furosemide 40 MG Oral Tablet (Lasix)Indications:Hx of diastolic dysfunction Take 1 Tablet by mouth in the morning. 90 Tablet 5 06/04/2024 Active documented as of this encounter (statuses as of 06/11/2024) Active Problems Problem Noted Date Diagnosed Date [...] NEURO DZ 09/08/2009 Overview: Per Diabetes Taxonomy. 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 * Addendum Note - Neema Looney MD - 06/10/2024 5:40 PM EDTAddended by: NEEMA LOONEY on: 06/10/2024 05:40 PM Modules accepted: Orders * Telephone Encounter - Neema Looney MD - 06/10/2024 5:37 PM EDT The oxygen flow rate was included on DME . I will do another order. Placed as miscellaneous. Likelywill need printed * Telephone Encounter - Lauren Foster, MED ASSIST - 06/10/2024 3:53 PM EDT Can a script be generated that states liters per minute for portable oxygen? [facility] * Telephone Encounter - Gaby Irene LPN - 06/09/2024 2:03 PM EDT Faxed updated order as requested and received confirmation it was sent. Attempted to call patients daughter to update her no answer, left a detailed message informing the patients daughter I sent thenew order and received confirmation it was successfully sent. * Telephone Encounter - Neema Looney MD - 06/08/2024 5:52 PM EDT New order done * Telephone Encounter - Gaby Irene LPN - 06/08/2024 5:05 PM EDT Please advise, can a new order be placed for the patient meeting the requirements listed below. * Telephone Encounter - Mariya Barrientos OSA - 06/08/2024 10:42 AM EDT Reason for patient's call: pt's daughter is calling stating that [facility] is calling stating that they need prescription with the liters of oxygen which is 2. They also need current date with the Dr's initials. Pt is uses a walker and can not have a tank. Pt's daughter is asking to be called when this is faxed. * Telephone Encounter - Gaby Irene LPN - 06/05/2024 12:16 PM EDT Called and spoke with patients daughter and she is aware I just faxed the order to the number she provided us with. * Telephone Encounter - Becca Roberson OSA - 06/05/2024 11:57 AM EDT Patient's daughter is calling to have the order sent to [facility] at [phone] for the portable oxygen. Was seen yesterday for hospital discharge. See that at the bottom but not finding an order. Please call julián fraser at [phone] once the fax is sent to [employer] so she can verify it to go pick it up. This is a new fax number to send the order to. Thank you documented in this encounter Plan of Treatment Upcoming Encounters Date Type Department Care Team (Late st Contact Info) Description 06/16/2024 11:00 AM EDT Nurse Only Ancillary Department, [place] [address] [place] [facility] [place] [address] [place], Nurse [address] [place] [address] 06/22/2024 1:20 PM EDT 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 Pharmacy, [place] [address] [place] [facility] [place] [address] [facility] [address] [place] [facility] [place] [address] 07/14/2024 11:50 AM EDT 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 Pharmacy, [place] [address] [facility], [place] [address] [place] [facility] [address] [place] [facility] [place] [address] 07/29/2024 4:20 PM EDT Office Visit Family [facility], [address] [place] [id number] Neema Looney MD [address] [place] [address] 08/19/2024 1:30 PM EDT Office Visit Urology, [facility] [address] [place] [address] Jeremy Vital MD [address] [facility] [place] [address] 09/22/2024 3:00 PM EST Office Visit Cardiology, [facility] [address] [place] [address] Neema Paz PA-Sade [address] [place] [address] 11/23/2024 12:20 PM EST Office Visit [facility] [address] [place] [address] Neema Looney MD [address] [place] [address] Health Maintenance Due Date Last Done Comments Zoster Vaccines (2 of 3) 05/14/2014 03/19/2014, 03/2014 COVID-19 Vaccine ( season) 2024 09/27/2023, 08/07/2022, 01/08/2021, Additional history exists Influenza Vaccine (FLU shot) (#1) 2024 09/12/2023, 09/11/2022, 08/04/2021, Additional history exists DXA Scan 05/19/2025 01/29/2006, 01/29/2006 Postp oned from 01/29/2011 (Patient Declined After Education) Depression Screening 05/20/2025 05/20/2024 O2 ASSESSMENT COMPLETED IN PAST YEAR FOR COPD 06/04/2025 06/04/2024 documented as of this encounter Medical Devices Not on filedocumented as of this encounter Visit Diagnoses Diagnosis Hypoxia- Primary Hypoxemia documented in this encounter Advance Directives * No Code Status (Latest Code Status on File) Date Activated Date Inactivated Comments 10/18/2004 9:59 AM 10/18/2004 10:59 AM Care Teams Laboratory Courier Relationship Specialty Start Date End Date Neema Looney MD [address] [place] [address] PCP - General 07/31/00 documented as of this encounter
--- OUTSIDE RECORDS SUMMARY | 2024-08-01 13:49 | External Medical Summary ---
Author Name Unknown Address Unknown Organization : Laboratory Report Ordering Provider Test Date Status PARESH DEE 06/22/2024 13:31:43 Final Therapeutic ranges for non-o perative patients:
Prophylaxsis/treatment of DVT: (Range:2.0-3.0)
Treatment of pulmonary embolism:(Range:2.0-3.0)
Prevention of systemic embolism from:
-tissue heart valves
-acute myocardial infarction
-valvular heart disease
-atrial fibrillation
(Range: 2.0-3.0)
Mechanical prosthetic valves: (Range: 2.5-3.5) Observation Date Value Abnormality Reference (Units ) Status INR in Capillary blood by Coagulation assay 06/22/2024 13:31:43 3.8 (INR) Final Performing Location
--- OUTSIDE RECORDS SUMMARY | 2024-08-01 13:49 | External Medical Summary | Summary of Care ---
Author Name Unknown Organization [facility] Address [address] [place] [address] Phone [phone] Care Team Providers Care Ultimate Hoops Trainer Name Role Phone Duong Looney MD Primary Care Provider [phone] Reason for Visit * Reason Comments Dosage Adjustment In Person (Anticoag Cl inic) Encounter Details Date Type Department Care Team (Latest Contact Info) Description 07/15/2024 1:10 PM EDT 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 Pharmacy, [address] [address] [facility] [address] [place] [address] 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 management encounter*; Personal history of TIA (transient ischemic attack); Permanent atrial fibrillation (HCC) Allergies Active Allergy Reactions Criticality Noted Date Comments Adhesive Tape 03/11/2003 redness Latex 01/18/2005 rash Lisinopril Cough Low 03/18/2014 Penicillins 07/14/1999 swelling Prednisone 04/20/2005 Pt says it makes her "bleed into her intestines" documented as of this encounter (statuses as of 07/15/2024) Medications Medication Sig Dispensed Refills Start Date End Date Status Blood Glucose Monitoring Suppl (Cryptopay ULTRA 2) w/Device KITIndications:Type 2 diabetes mellitus with hemoglobin A1c goal of less than 8.0% ([facility]) Use as directed to test [...] diabetic neuropathy, unspecified whether fpc insulin use ([facility]),Restless leg syndrome take 1 capsule by mouth twice a day and 2 capsules by mouth at bedtime 360 Capsule 3 10/09/2023 Active Losartan Potassium 25 MG Oral Tablet (Cozaar) Take 1 Tablet by mouth in the morning. 90 Tablet 2 10/09/2023 Active Trelegy Ellipta 200-62.5-25 MCG/ACT Aerosol [...] goal of less than 8.0% ([facility]) TEST once daily E11.9 100 Strip 3 04/30/2024 Active Nystatin 959738 UNIT/GM External Powder (Nyamyc)Indications:C andidal skin infection APPLY TOPICALLY TO AFFECTED AREA TWICE A DAY TO PANNUS FOLDS 60 g 05/18/2024 Active Triamcinolone Acetonide 0.1 % External Cream (Aristocort)Indicatio ns:Dermatitis Apply topically to affected area 2 times a day. To affected area. 80 g 5 05/20/2024 Active Polyethylene Glycol 3350 17 GM Oral Packet (MiraLax) Take 1 Packet by mouth in the morning. Active Furosemide 40 MG Oral Tablet (Lasix)Indications:Hx of diastolic dysfunction Take 1 Tablet by mouth in the morning. 90 Tablet 5 06/04/2024 Active metFORMIN HCl ER 500 MG Oral Tablet Extended Release 24 Hour (Glucophage XR)Indications:Type 2 diabetes mellitus with hemoglobin A1c goal of less than 8.0% (HCC) take 1 tablet by mouth every morning with food MAY INCREASE TO 1 tablet by mouth twice a day IF TOLERATED 180 Tablet 1 06/30/2024 Active documented as of this encounter (statuses as of 07/15/2024) Active Problems Problem Noted Date Diagnosed Date [...] NEURO DZ 09/08/2009 Overview: Per Diabetes Taxonomy. 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 11/25/2020 [...] as of this encounter (statuses as of 07/15/2024) Immunizations Name Administration Dates Next Due COVID-19 [...] lent, No Preserve, IM 08/12/2015 Seasonal Influenza, Trivalen t, (IIV3), with Preserv, (Fluzone) 08/22/2016,08/13/2014,08/11/2013,04/2012,08/20/2011,09/08/2010,08/01/20 09,08/11/2008,08/13/2007 TDAP (age 10 and older)(Boostrix) [...] Progress Notes * Cammie Salinas RPh - 07/15/2024 1:07 PM EDT Medication Therapy Disease Management - 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 Patient: Keila Vital | : 1935 Subjective Patient-Reported Symptoms: Patient Findings Negatives: Signs/symptoms of thrombosis, Signs/symptoms of bleeding, Change in health, Change in alcohol use, Change in activity, Upcoming invasive procedure, Missed doses, Extra doses, Change in medications, Change in diet/appetite, Bruising Objective Current Warfarin Dose As of 07/15/2024 Warfarin maintenance plan: 2.5 mg (5 mg x 0.5) every Mon, Fri; 5 mg (5 mg x 1) all other days INR Result As of 07/15/2024 INR goal: 2.0-3.0 INR used for dosin.4 (07/15/2024) Assessment & Plan Warfarin Plan As of 07/15/2024 Full warfarin instructions: 2.5 mg every Mon, Fri; 5 mg all other days No change documented: Cammie Salinas jose Next INR check: 09/02/2024 Repeat PT/INR in 7 week(s) Weekly dose: not changed Additional Dosing Information: Description Takes in AM I spent a total of 10-19 minutes (exact time 10 mins) on the date of service in preparation, delivery, and documentation of the care provided to Keila Vital excluding any time spent in the performance of separately billed services or time spent by another provider/QHP. Cammie Salinas [facility] Clinical Pharmacist 07/15/2024, 1:07 PM documented in this encounter Plan of Treatment Upcoming Encounters Date Type Department Care Team (Late st Contact Info) Description 07/29/2024 4:20 PM EDT Office Visit [place] [address] [place] [facility] [place] [id number] [facility] [address] [facility] [address] 08/19/2024 1:30 PM EDT Office Visit Urology, [facility] [place] [address] [facility] [place] [address] Jeremy Vital MD [address] [place] [address] 09/02/2024 11:50 AM EDT 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 [address] [place] [facility] [place] [address] [facility] [address] [place] [facility] [place] [address] 09/22/2024 3:00 PM EST Office Visit Cardiology, [facility] [place] [address] [facility] [place] [address] Duong Paz, PA-C [address] [facility] [place] [address] 11/23/2024 12:20 PM EST [facility] Visit [place] [address] [facility] [phone] [facility] [address] [facility] [place] [address] Health Maintenance Due Date Last Done Comments Zoster Vaccines (2 of 3) 05/14/2014 03/19/2014, 03/2014 Adult Wellness Visit 02/15/2023 02/15/2022 COVID-19 Vaccine ( season) 2024 09/27/2023, 08/07/2022, [...] Comments INR FINGERSTICK, POINT OF CARE STAT 07/15/2024 1:11 PM EDT Personal history of TIA (transient ischemic attack) 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 management encounter documented in this encounter Results * INR FINGERSTICK, POINT OF CARE (07/15/2024 1:11 PM EDT) Fingerstick INR 2.4 INR 1:14 PM EDT [facility] 56-01 Blood 07/15/2024 1:11 PM EDT 07/15/2024 1:14 PM EDT Narrative [facility]AT[facility]-01 - 07/15/2024 1:14 PM EDT Therapeutic ranges for non-operative patients: Prophylaxsis/treatment of DVT: (Range:2.0-3.0) Treatment of pulmonary embolism:(Range:2.0-3.0) Prevention of systemic embolism from: -tissue heart valves -acute myocardial infarction -valvular heart disease -atrial fibrillation (Range: 2.0-3.0) Mechanical prosthetic valves: (Range: 2.5-3.5) Bhakti Ogden [facility] LAB POINT OF C ARE TEST DOCKED DEVICE UNSOLICITED RESULTS [facility] [phone] [place] [address] documented in this encounter Visit Diagnoses Diagnosis 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 management encounter- Primary Encounter for therapeutic drug monitoring Personal history of TIA (transient ischemic attack) Transient ischemic attack (TIA), and cerebral infarction without residual deficits Permanent atrial fibrillation (HCC) Atrial fibrillation documented in this encounter Advance Directives * No Code Status (Latest Code Status on File) Date Activated Date Inactivated Comments 10/18/2004 9:59 AM 10/18/2004 10:59 AM Care Teams Ultimate Hoops Trainer Relationship Specialty Start Date End Date Duong Looney MD [address] [place] [address] PCP - General 07/31/00 documented as of this encounter
--- OUTSIDE RECORDS SUMMARY | 2024-08-01 13:49 | External Medical Summary ---
Author Name Unknown Address Unknown Organization : Laboratory Report Ordering Provider Test Date Status PARESH DEE 07/15/2024 13:11:47 Final Therapeutic ranges for non-o perative patients:
Prophylaxsis/treatment of DVT: (Range:2.0-3.0)
Treatment of pulmonary embolism:(Range:2.0-3.0)
Prevention of systemic embolism from:
-tissue heart valves
-acute myocardial infarction
-valvular heart disease
-atrial fibrillation
(Range: 2.0-3.0)
Mechanical prosthetic valves: (Range: 2.5-3.5) Observation Date Value Abnormality Reference (Units ) Status INR in Capillary blood by Coagulation assay 07/15/2024 13:11:47 2.4 (INR) Final Performing Location
--- OUTSIDE RECORDS SUMMARY | 2024-08-01 13:49 | External Medical Summary | Summary of Care ---
Author Name Unknown Organization [facility] Address [address] [place] [address] Phone [phone] Care Team Providers Care Tanning Consultant Name Role Phone Duong Looney MD Primary Care Provider [phone] Reason for Visit * Reason Onset Date Comments Medication Update 07/30/2024 Encounter Details Date Type Department Care Team (Late st Contact Info) Description 07/30/2024 Telephone Pharmacy, [place] [address] [facility] [place] [address] [facility] [address] [place] [address] Medication Update (/) Allergies Active Allergy Reactions Criticality Noted Date Comments Adhesive Tape 03/11/2003 redness Latex 01/18/2005 rash Lisinopril Cough Low 03/18/2014 Penicillins 07/14/1999 swelling Prednisone 04/20/2005 Pt says it makes her "bleed into her intestines" documented as of this encounter (statuses as of 07/30/2024) Medications Medication Sig Dispensed Refills Start Date End Date Status Blood Glucose Monitoring Suppl (DreamFunded ULTRA 2) w/Device KITIndications:Type 2 diabetes mellitus with hemoglobin A1c goal of less than 8.0% ([facility]) Use as directed to test blood sugar [...] for wheezing 18 g 5 10/09/2023 Active Gabapentin 300 MG Oral Capsule (Neurontin)Indication s:Type 2 diabetes mellitus with diabetic neuropathy, unspecified whether exterminator helper insulin use ([facility]),Restless leg syndrome take 1 capsule by mouth twice a day and 2 capsules by mouth at bedtime 360 Capsule 3 10/09/2023 Active Trelegy Ellipta 200-62.5-25 MCG/ACT Aerosol [...] than 8.0% ([facility]) TEST once daily E11.9 100 Strip 3 04/30/2024 Active Nystatin 287788 UNIT/GM External Powder (Nyamyc)Indications:C andidal skin infection [...] IF TOLERATED 180 Tablet 1 06/30/2024 Active Atorvastatin Calcium 10 MG Oral Tablet (Lipitor)Indications: Hyperlipidemia with target LDL less than 100 Take 1 Tablet by mouth at bedtime. 90 Tablet 3 07/30/2024 Active Losartan Potassium 25 MG Oral Tablet (Cozaar) Take 1 Tablet by mouth in the morning. 90 Tablet 3 07/30/2024 Active Sulfamethoxazole-Trim ethoprim 800-160 MG Oral Tablet (Bactrim DS)Indications:Cyst, dermoid, trunk Take 1 Tablet by mouth in the morning and 1 Tablet before bedtime. Do all this for 10 days. Until gone.. 20 Tablet 07/29/2024 4 Active documented as of this encounter (statuses as of 07/30/2024) Active Problems Problem Noted Date Diagnosed Date [...] DZ 09/08/2009 Overview: Per Diabetes Taxonomy. 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 BPA received for patient on warfarin prescribed BACTRIM; Electronically signed by [facility] at 07/30/2024 7:40 AM EDT documented in this encounter Plan of Treatment Upcoming Encounters Date Type Department Care Team (Late st Contact Info) Description 07/31/2024 11:30 AM EDT Office Visit General Surgery, [facility] [address] [place] [address] Mikie Vital MD [address] [place] [address] 08/19/2024 1:30 PM EDT Office Visit Urology, [facility] [address] [place] [address] Jeremy Vital MD [address] [place] [address] 09/02/2024 11:50 AM EDT 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 Pharmacy, [address] [address] [facility] [address] [place] [address] 09/22/2024 3:00 PM EST Office Visit Cardiology, [facility] [address] [place] [address] Duong Paz PA-C [address] [place] [address] 11/23/2024 12:20 PM EST Office Visit [facility], [place] [address] [facility] [phone] Duong Looney MD [address] [place] [facility] [place] [address] Health Maintenance Due Date Last Done Comments [...] ASSESSMENT COMPLETED IN PAST YEAR FOR COPD 07/29/2025 07/29/2024 documented as of this encounter Medical Devices [...] 9:59 AM 10/18/2004 10:59 AM Care Teams Tanning Consultant Relationship Specialty Start Date End Date Duong Looney MD [address] [place] [address] PCP - General 07/31/00 documented as of this encounter
--- OUTSIDE RECORDS SUMMARY | 2024-08-01 13:49 | External Medical Summary | Summary of Care ---
Author Name Unknown Organization [facility] Address [address] [place] [address] Phone [phone] Care Team Providers Care Consumer Loan Officer Name Role Phone Duong Looney MD Primary Care Provider [phone] Reason for Visit * Reason Onset Date Comments Medication Update 07/30/2024 Encounter Details Date Type Department Care Team (Late st Contact Info) Description 07/30/2024 Telephone Pharmacy, [place] [address] [facility] [place] [address] [facility] [address] [place] [address] Medication Update (/) Allergies Active Allergy Reactions Criticality Noted Date Comments Adhesive Tape 03/11/2003 redness Latex 01/18/2005 rash Lisinopril Cough Low 03/18/2014 Penicillins 07/14/1999 swelling Prednisone 04/20/2005 Pt says it makes her "bleed into her intestines" documented as of this encounter (statuses as of 07/30/2024) Medications Medication Sig Dispensed Refills Start Date End Date Status Blood Glucose Monitoring Suppl (Atlas Powered ULTRA 2) w/Device KITIndications:Type 2 diabetes mellitus with hemoglobin A1c goal of less than 8.0% ([facility]) Use as directed to test [...] 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 Current weekly dose: 30 mg (2.5 mg every Mon, Fri; 5 mg all other days) Adjusted weekly dose while on Bactrim: 22.5 mg Called and spoke with daughter. Provided the above dosage instructions. This is a 25 % reduction (should be ~25-30%). Patient will resume usual dose when they finish course of antibiotic. Patient will contact [facility] if they experience any issues with unusual bruising or bleeding, or if they have any N/V/D while taking the antibiotic. Repeat INR to be obtained at lab after urology appointment. Myah Resendiz RPh, PharmD Clinical Pharmacist Medication Therapy Disease Management 07/30/2024, 1:08 PM * Telephone Encounter - Ioana Little RPh - 07/30/2024 7:39 AM EDT Images from the original note were not included. BPA received for patient on warfarin prescribed BACTRIM; documented in this encounter Plan of Treatment Upcoming Encounters Date Type Department Care Team (Late st Contact Info) Description 07/31/2024 11:30 AM EDT Office Visit General Surgery, [facility] [address] [facility] [place] [address] Mikie Vital MD 132 [facility] [place] [address] 08/19/2024 1:30 PM EDT Office Visit Urology, [facility] [address] [facility] [place] [address] Jeremy Vital MD [address] [facility] [place] [address] 08/20/2024 6:00 AM EDT 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 Pharmacy, [place] [address] [place] [address] [facility] [place] [address] 09/02/2024 11:50 AM EDT 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 Pharmacy, [place] [address] [place] [address] [facility] [place] [address] 09/22/2024 3:00 PM EST Office Visit Cardiology, [facility] [address] [facility] [place] [address] Duong Paz PA-C [address] [facility] [place] [address] 11/23/2024 12:20 PM EST Office Visit [facility] [address] [facility] [phone] Duong Looney MD [address] [place] [facility] [place] [address] Health Maintenance Due Date Last Done Comments [...] 9:59 AM 10/18/2004 10:59 AM Care Teams Consumer Loan Officer Relationship Specialty Start Date End Date Duong Looney MD [address] [facility] [place] [address] PCP - General 07/31/00 documented as of this encounter
--- OUTSIDE RECORDS SUMMARY | 2024-08-01 13:49 | External Medical Summary | Summary of Care ---
Author Name Unknown Organization [facility] Address [address] [place] [address] Phone [phone] Care Team Providers Care Electric Switch Repairer Name Role Phone Duong Looney MD Primary Care Provider [phone] Reason for Visit * Reason Comments Dosage Adjustment In Person (Anticoag Cl inic) Encounter Details Date Type Department Care Team (Latest Contact Info) Description 06/22/2024 1:20 PM EDT 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 Pharmacy, [address] [address] [facility] [address] [place] [address] 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 management encounter*; Personal history of TIA (transient ischemic attack) Allergies Active Allergy Reactions Criticality Noted Date Comments Adhesive Tape 03/11/2003 redness Latex 01/18/2005 rash Lisinopril Cough Low 03/18/2014 Penicillins 07/14/1999 swelling Prednisone 04/20/2005 Pt says it makes her "bleed into her intestines" documented as of this encounter (statuses as of 06/22/2024) Medications Medication Sig Dispensed Refills Start Date End Date Status Blood Glucose Monitoring Suppl (Cellomics TechnologyTOUCH ULTRA 2) w/Device KITIndications:Type 2 diabetes mellitus with hemoglobin A1c goal of less than 8.0% ([facility]) Use as directed to test [...] diabetes mellitus with diabetic neuropathy, unspecified whether lobsterman insulin use (HCC),Restless leg syndrome take 1 [...] hemoglobin A1c goal of less than 8.0% ([facility]) take 1 tablet by mouth every morning with food MAY INCREASE TO 1 tablet by mouth twice a day IF TOLERATED 180 Tablet 1 10/09/2023 Active Trelegy Ellipta 200-62.5-25 MCG/ACT Aerosol Powder Breath Activated (Fluticasone-Umeclid inium-Vilanterol) Inhale 1 Puff by mouth in the morning. 60 Blister Dosing Unit 11 10/09/2023 Active LORazepam 1 MG Oral Tablet (Ativan)Indications: [...] hemoglobin A1c goal of less than 8.0% ([facility]) TEST once daily E11.9 100 Strip 3 04/30/2024 Active Nystatin 205229 UNIT/GM External Powder (Nyamyc)Indications: Candidal skin infection APPLY TOPICALLY TO AFFECTED [...] morning. Active Furosemide 40 MG Oral Tablet (Lasix)Indications:H x of diastolic dysfunction Take 1 Tablet by mouth in the morning. 90 Tablet 5 06/04/2024 Active Sulfamethoxazole-Tri methoprim 800-160 MG Oral Tablet (Bactrim DS) Take 1 Tablet by mouth in the morning and 1 Tablet before bedtime. Use as directed.. 14 Tablet 05/28/2024 4 Discontinu ed(Medicat ion List Clean Up) documented as of this encounter (statuses as of 06/22/2024) Active Problems Problem Noted Date Diagnosed Date [...] NEURO DZ 09/08/2009 Overview: Per Diabetes Taxonomy. 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 I was present and in the exam room for the entirety of the visit. Cammie Salinas [facility] Clinical Pharmacist 06/22/2024, 2:53 PM * Radha Roman, Pharmacy Tack Picker - 06/22/2024 1:28 PM EDT Images from the original note were not included. Medication Therapy Disease Management - 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 Patient: Keila Vital | : 1935 Subjective Patient-Reported Symptoms: Patient Findings Negatives: Signs/symptoms of thrombosis, Signs/symptoms of bleeding, Change in health, Change in alcohol use, Change in activity, Upcoming invasive procedure, Missed doses, Extra doses, Change in medications, Change in diet/appetite, Bruising Objective Current Warfarin Dose As of 06/22/2024 Warfarin maintenance plan: 5 mg (5 mg x 1) every day INR Result As of 06/22/2024 INR goal: 2.0-3.0 INR used for dosin.8 (06/22/2024) Assessment & Plan Warfarin Plan As of 06/22/2024 Full warfarin instructions: 06/23: Hold; Otherwise 2.5 mg every Mon, Fri; 5 mg all other days Next INR check: 07/14/2024 Repeat PT/INR in 3 week(s) Weekly dose: Decreased Additional Dosing Information: Description Takes in AM I spent a total of 10-19 minutes (exact time 10 mins) on the date of service in preparation, delivery, and documentation of the care provided to Keila Vital excluding any time spent in the performance of separately billed services or time spent by another provider/QHP. Radha Roman, Pharmacy Tack Picker Clinical Pharmacist 06/22/2024, 1:28 PM documented in this encounter Plan of Treatment Upcoming Encounters Date Type Department Care Team (Late st Contact Info) Description 07/14/2024 11:50 AM EDT 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 Pharmacy, [place] [address] [place] [address] [facility] [address] [place] [address] 07/29/2024 4:20 PM EDT Office Visit [facility], [place] [address] [place] [address] Duong Looney MD [address] [place] [address] 08/19/2024 1:30 PM EDT Office Visit Urology, [facility] [address] [facility] [place] [address] Jeremy Vital MD [address] [place] [address] 09/22/2024 3:00 PM EST Office Visit Cardiology, [facility] [address] [facility] [place] [address] Duong Paz PA-C [address] [facility] [place] [address] 11/23/2024 12:20 PM EST Office Visit [facility], [place] [address] [facility] [place] [phone] Duong Looney MD [address] [facility] [place] [address] Health Maintenance Due Date Last Done Comments Zoster Vaccines (2 of 3) 05/14/2014 03/19/2014, 03/2014 Adult Wellness Visit 02/15/2023 02/15/2022 COVID-19 Vaccine (2022- season) 2024 09/27/2023, 08/07/2022, [...] Comments INR FINGERSTICK, POINT OF CARE STAT 06/22/2024 1:31 PM EDT Personal history of TIA (transient ischemic attack) 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 management encounter documented in this encounter Results * INR FINGERSTICK, POINT OF CARE (06/22/2024 1:31 PM EDT) Fingerstick INR 3.8 INR 1:40 PM EDT [facility] 06/22/2024 1:31 PM EDT 06/22/2024 1:40 PM EDT Narrative [facility] - 06/22/2024 1:40 PM EDT Therapeutic ranges for non-operative patients: Prophylaxsis/treatment of DVT: (Range:2.0-3.0) Treatment of pulmonary embolism:(Range:2.0-3.0) Prevention of systemic embolism from: -tissue heart valves -acute myocardial infarction -valvular heart disease -atrial fibrillation (Range: 2.0-3.0) Mechanical prosthetic valves: (Range: 2.5-3.5) Bhakti Ogden [facility] POINT OF C ARE TEST DOCKED DEVICE UNSOLICITED RESULTS [facility] [address] [place], [place] [id number] documented in this encounter Visit Diagnoses Diagnosis 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 management encounter- Primary Encounter for therapeutic drug monitoring Personal history of TIA (transient ischemic attack) Transient ischemic attack (TIA), and cerebral infarction without residual deficits documented in this encounter Advance Directives * No Code Status (Latest Code Status on File) Date Activated Date Inactivated Comments 10/18/2004 9:59 AM 10/18/2004 10:59 AM Care Teams Electric Switch Repairer Relationship Specialty Start Date End Date Duong Looney MD [address] [place] [id number] PCP - General 07/31/00 documented as of this encounter
--- OUTSIDE RECORDS SUMMARY | 2024-08-01 13:49 | External Medical Summary | Summary of Care ---
Author Name Unknown Organization [facility] Address [address] [place] [address] Phone [phone] Care Team Providers Care Preflight Inspector Name Role Phone Neema Looney MD Primary Care Provider [phone] Reason for Visit * Reason Comments eRx-Medication Refill Encounter Details Date Type Department Care Team (Late st Contact Info) Description 07/29/2024 Refill [facility] [address] [place] [facility] [place] [address] Neema Looney MD [address] [place] [address] Hyperlipidemia with target LDL less than 100; Edema, unspecified type Allergies Active Allergy Reactions Criticality Noted Date Comments Adhesive Tape 03/11/2003 redness Latex 01/18/2005 rash Lisinopril Cough Low 03/18/2014 Penicillins 07/14/1999 swelling Prednisone 04/20/2005 Pt says it makes her "bleed into her intestines" documented as of this encounter (statuses as of 07/30/2024) Medications Medication Sig Dispensed Refills Start Date End Date Status Blood Glucose Monitoring Suppl (AptelaTOUCH ULTRA 2) w/Device KITIndications:Type 2 diabetes mellitus with hemoglobin A1c goal of less than 8.0% ([facility]) Use as directed to test blood sugar twice daily E11.9 1 Kit 7 Active Acetaminophen 500 MG Oral Tablet (TYLENOL) Take 2 Tablets by mouth every 6 hours as needed for Pain, Mild. 100 Tab 0 Active PreserVision AREDS 2+Multi Vit Oral Capsule Take 2 Caps by mouth once for 1 dose. 60 Cap 1 Active Loperamide HCl 2 MG Oral Capsule (Imodium) Take 1 Capsule by mouth as needed for Diarrhea. Active Albuterol Sulfate HFA 108 (90 Base) MCG/ACT Inhalation Aerosol SolutionIndications: Asthma with severity to be determined inhale 2 puffs by mouth and INTO THE LUNGS every 4 hours if needed for wheezing 18 g 5 3 Active Gabapentin 300 MG Oral Capsule (Neurontin)Indicatio ns:Type 2 diabetes mellitus with diabetic neuropathy, unspecified whether care home insulin use ([facility]),Restless leg syndrome take 1 capsule by mouth twice a day and 2 capsules by mouth at bedtime 360 Capsule 3 3 Active Trelegy Ellipta 200-62.5-25 MCG/ACT Aerosol Powder Breath Activated (Fluticasone-Umeclid inium-Vilanterol) Inhale 1 Puff by mouth in the morning. 60 Blister Dosing Unit 11 3 Active LORazepam 1 MG Oral Tablet (Ativan)Indications: [...] the morning. 90 Tablet 3 4 Active OneTouch Ultra In Vitro Strip (Glucose Blood)Indications:Ty pe 2 diabetes mellitus with hemoglobin A1c goal of less than 8.0% ([facility]) TEST once daily E11.9 100 Strip 3 4 Active Nystatin 202901 UNIT/GM External Powder (Nyamyc)Indications: Candidal skin infection APPLY TOPICALLY TO AFFECTED AREA TWICE A DAY TO PANNUS FOLDS 60 g 4 Active Triamcinolone Acetonide 0.1 % External Cream (Aristocort)Indicati ons:Dermatitis Apply topically to affected area 2 times a day. To affected area. 80 g 5 4 Active Polyethylene Glycol 3350 17 GM Oral Packet (MiraLax) Take 1 Packet by mouth in the morning. Active Furosemide 40 MG Oral Tablet (Lasix)Indications:H x of diastolic dysfunction Take 1 Tablet by mouth in the morning. 90 Tablet 5 4 Active metFORMIN HCl ER 500 MG Oral Tablet Extended Release 24 Hour (Glucophage XR)Indications:Type 2 diabetes mellitus with hemoglobin A1c goal of less than 8.0% (HCC) take 1 tablet by mouth every morning with food MAY INCREASE TO 1 tablet by mouth twice a day IF TOLERATED 180 Tablet 1 4 Active Atorvastatin Calcium 10 MG Oral Tablet (Lipitor)Indications :Hyperlipidemia with target LDL less than 100 Take 1 Tablet by mouth at bedtime. 90 Tablet 3 4 Active Losartan Potassium 25 MG Oral Tablet (Cozaar) Take 1 Tablet by mouth in the morning. 90 Tablet 3 4 Active Sulfamethoxazole-Tri methoprim 800-160 MG Oral Tablet (Bactrim DS)Indications:Cyst, dermoid, trunk Take 1 Tablet by mouth in the morning and 1 Tablet before bedtime. Do all this for 10 days. Until gone.. 20 Tablet 4 08/08/20 24 Active Atorvastatin Calcium 10 MG Oral Tablet (Lipitor)Indications :Hyperlipidemia with target LDL less than 100 Take 1 Tablet by mouth at bedtime. 90 Tablet 2 3 07/30/20 24 Discontinued Losartan Potassium 25 MG Oral Tablet (Cozaar) Take 1 Tablet by mouth in the morning. 90 Tablet 2 3 07/30/20 24 Discontinued documented as of this encounter [...] NEURO DZ 09/08/2009 Overview: Per Diabetes Taxonomy. [facility] current use of anticoagulant therapy 0 06/15/2005 [...] Problem Noted Date Diagnosed Date Resolved Date [facility] current use of ant icoagulant therapy 11/25/2020 [...] Influenza, Trivalen t, (IIV3), with Preserv, (Fluzone) 08/22/2016,08/13/2014,08/11/2013,1104/2012,08/20/2011,09/08/2010,08/01/20 09,08/11/2008,08/13/2007 TDAP (age 10 and older)(Boostrix) [...] encounter Miscellaneous Notes * Telephone Encounter - Ashley Bueno, [facility] - 07/30/2024 10:16 AM EDTSigned Prescriptions: Disp Refills Atorvastatin Calcium 10 MG Oral Tablet (Li*90 Tab*3 Sig: Take 1 Tablet by mouth at bedtime.Authorizing Provider: NEEMA LOONEY User: ASHLEY BUENO Losartan Potassium 25 MG Oral Tablet (Coza*90 Tab*3 Sig: Take 1 Tablet by mouth in the morning.Authorizing Provider: NEEMA LOONEY User: ASHLEY BUENO WRefused Prescriptions:Disp Refills Furosemide 20 MG Oral Tablet (Lasix) 180 Ta*0 Sig: take 1 tablet by mouth three times a week and 2 tablets by mouth ON ALL OTHER DAYSRefused By: ASHLEY BUENOeason for Refusal: Dose needs clarificationReason for Refusal Comment: 40mg tabs documented in this encounter Plan of Treatment Upcoming Encounters Date Type Department Care Team (Late st Contact Info) Description 07/31/2024 11:30 AM EDT Office Visit General [facility], [facility] [place] [address] Mikie Vital MD [address] [place] [address] 08/19/2024 1:30 PM EDT Office Visit Urology, [facility] [place] [address] Jeremy Vital MD [address] [place] [address] 09/02/2024 11:50 AM EDT 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 Pharm[facility], [place] [address] [facility] [address] [facility] [address] [facility] [address] 09/22/2024 3:00 PM EST Office Visit Cardiology, [facility] 132 [facility] [place] [address] Neema Paz PAGrettaC [address] [place] [address] 11/23/2024 12:20 PM EST Office Visit Family [facility], [place] [address] [place] [facility] [place] [phone] Neema Looney [facility] [address] [facility] [address] Health Maintenance Due Date Last Done Comments [...] as of this encounter Visit Diagnoses Diagnosis Hyperlipidemia with target LDL less than 100 Other and unspecified hyperlipidemia Edema, unspecified type documented in this encounter Advance Directives * No Code Status (Latest Code Status on File) Date Activated Date Inactivated Comments 10/18/2004 9:59 AM 10/18/2004 10:59 AM Care Teams Preflight Inspector Relationship Specialty Start Date End Date Neema Looney MD [address] [place] [address] PCP - General 07/31/00 documented as of this encounter
--- OUTSIDE RECORDS SUMMARY | 2024-08-01 13:49 | External Medical Summary | Summary of Care ---
Author Name Unknown Organization [facility] Address [address] [place] [address] Phone [phone] Care Team Providers Care Scheduler Maintenance Name Role Phone Neema Looney MD Primary Care Provider [phone] Reason for Visit * Reason Onset Date Comments Advice 06/05/2024 Encounter Details Date Type Department Care Team (Late st Contact Info) Description 06/05/2024 Telephone [facility] [address] [place] [facility] [place] [address] Neema Looney MD [address] [place] [address] Advice Allergies Active Allergy Reactions Criticality Noted Date Comments Adhesive Tape 03/11/2003 redness Latex 01/18/2005 rash Lisinopril Cough Low 03/18/2014 Penicillins 07/14/1999 swelling Prednisone 04/20/2005 Pt says it makes her "bleed into her intestines" documented as of this encounter (statuses as of 06/11/2024) Medications Medication Sig Dispensed Refills Start Date End Date Status Blood Glucose Monitoring Suppl (MangoTOUCH ULTRA 2) w/Device KITIndications:Type 2 diabetes mellitus with hemoglobin A1c goal of less than 8.0% ([facility]) Use as directed to test blood [...] diabetes mellitus with diabetic neuropathy, 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 (HCC),Restless leg syndrome take [...] than 8.0% ([facility]) TEST once daily E11.9 100 Strip 3 04/30/2024 Active Nystatin 394996 UNIT/GM External Powder (Nyamyc)Indications:C andidal skin infection [...] Problem Noted Date Diagnosed Date 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 I will do another order. Placed as miscellaneous. Likelywill need printed * Telephone Encounter - Lauren Foster MED ASSIST - 06/10/2024 3:53 PM EDT Can a script be generated that states liters per minute for portable oxygen? [employer] will not accept without it. * Telephone [...] call: pt's daughter is calling stating that [facility] is calling stating that they need prescription [...] calling to have the order sent to [employer] [facility] at [phone] for the portable oxygen. Was seen yesterday for hospital discharge. See that at the bottom but not finding an order. Please call precious fraser at [phone] once the fax is sent to [employer] [facility] so she can verify it to go pick it up. This is a new fax number to send the order to. Thank you documented in this encounter Plan of Treatment Upcoming Encounters Date Type Department Care Team (Late st Contact Info) Description 06/16/2024 11:00 AM EDT Nurse Only Ancillary Department, [place] [address] [place] [address] [place] [address] [facility] [address] 06/22/2024 1:20 PM EDT 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 Pharmacy, [place] [address] [place] [address] [facility] [address] [place] [address] 07/14/2024 11:50 AM EDT 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 Pharmacy, [place] [address] [place] [address] [facility] [address] [place] [address] 07/29/2024 4:20 PM EDT Office Visit [facility], [place] [address] [facility] [phone] Neema Looney MD [address] [facility] [address] 08/19/2024 1:30 PM EDT Office Visit Urology, [facility] [address] [facility] [place] [address] Jeremy Vital MD [address] [place] [address] 09/22/2024 3:00 PM EST Office Visit Cardiology, [facility] [address] [place] [address] Neema Paz PA-C [address] [place] [address] 11/23/2024 12:20 PM EST Office Visit Family [facility], [place] [address] [place] [phone] Neema Looney MD [address] [place] [facility] [place] [address] Health Maintenance Due Date Last Done Comments [...] 9:59 AM 10/18/2004 10:59 AM Care Teams Scheduler Maintenance Relationship Specialty Start Date End Date Neema Looney MD [address] [place] [address] PCP - General 07/31/00 documented as of this encounter
--- OUTSIDE RECORDS SUMMARY | 2024-08-01 13:49 | External Medical Summary | Summary of Care ---
Author Name Unknown Organization [facility] Address [address] [place] [address] Phone [phone] Care Team Providers Care Subject Scientific Research Name Role Phone Duong Looney MD Primary Care Provider [phone] Reason for Visit * Reason Onset Date Comments Advice 06/05/2024 Encounter Details Date Type Department Care Team (Late st Contact Info) Description 06/05/2024 Telephone [facility] [address] [place] [facility] [place] [address] Duong Looney MD [address] [place] [address] Advice Allergies Active Allergy Reactions Criticality Noted Date Comments Adhesive Tape 03/11/2003 redness Latex 01/18/2005 rash Lisinopril Cough Low 03/18/2014 Penicillins 07/14/1999 swelling Prednisone 04/20/2005 Pt says it makes her "bleed into her intestines" documented as of this encounter (statuses as of 06/10/2024) Medications Medication Sig Dispensed Refills Start Date End Date Status Blood Glucose Monitoring Suppl (SaltStackTOUCH ULTRA 2) w/Device KITIndications:Type 2 diabetes mellitus with hemoglobin A1c goal of less than 8.0% ([facility]) Use as directed to test [...] mellitus with diabetic neuropathy, 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 [employer] will not accept without it. * Telephone Encounter - Gaby Irene LPN - 06/09/2024 2:03 PM EDT Faxed updated order as requested and received confirmation it was sent. Attempted to call patients daughter to update her no answer, left a detailed message informing the patients daughter I sent thenew order and received confirmation it was successfully sent. * Telephone Encounter - Duong Looney MD - 06/08/2024 5:52 PM EDT [...] provided us with. * Telephone Encounter - eBcca Roberson OSA - 06/05/2024 11:57 AM EDT Patient's daughter is calling to have the order sent to [employer] at [phone] for the portable oxygen. Was seen yesterday for hospital discharge. See that at the bottom but not finding an order. Please call precious fraser at [phone] once the fax is sent to [employer] so she can verify it to go pick it up. This is a new fax number to send the order to. Thank you documented in this encounter Plan of Treatment Upcoming Encounters Date Type Department Care Team (Late st Contact Info) Description 06/22/2024 1:20 PM EDT 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 Pharmacy, [address] [place] [address] [facility] [address] [place] [address] 07/14/2024 11:50 AM EDT 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 Pharmacy, [place] [address] [place] [address] [facility] [address] [place] [facility] [place] [address] 07/29/2024 4:20 PM EDT [facility], [place] [address] [facility], [place] [phone] Duong Looney MD [address] [place] [address] 08/19/2024 1:30 PM EDT Office Visit Urology, [facility] [address] [facility] [place] [address] Jeremy Vital MD [address] [facility] [address] 09/22/2024 3:00 PM EST Office Visit Cardiology, [facility] [address] [facility] [place] [address] Duong Paz PA-C [address] [facility] [place] [address] 11/23/2024 12:20 PM EST [facility] Visit [facility], [place] [address] [facility], [place] [phone] Duong Looney MD [address] [place] [address] Health Maintenance Due Date Last Done Comments [...] 9:59 AM 10/18/2004 10:59 AM Care Teams Subject Scientific Research Relationship Specialty Start Date End Date Duong Looney MD [address] [place] [address] PCP - General 07/31/00 documented as of this encounter
--- OUTSIDE RECORDS SUMMARY | 2024-08-01 13:49 | External Medical Summary | Summary of Care ---
Author Name Unknown Organization [facility] Address [address] [place] [address] Phone [phone] Care Team Providers Care Retort Loader Name Role Phone Duong Looney MD Primary Care Provider Reason for Referral * Evaluate & Treat - Unlimited Visits (Within 30 days (routine)) - Authorized Specialty Diagnoses / Procedures Referred By Lor t Referred To Contact General Surgery Diagnoses Cyst, dermoid, trunk Duong Looney MD [address] [place] [address] Referral ID Status Reason Start Date Expiration Date Visits Requested Visits Authorized [id number] Authorized Specialty Services Required 07/29/[phone] Question Answer Referral Priority Within 30 days (routine) Where should this appointment be scheduled? [facility] What condition is the patient being seen for? General Surgery Conditions What condition is the patient being seen for? Skin Lesions (SubQ Nodules) Comments Anterior chest superficial cyst Reason for Visit * Reason Comments Procedure Areas to be froze of fHas a cyst on her chest as well and is painful, started last week Encounter Details Date Type Department Care Team (Late st Contact Info) Description 07/29/2024 4:20 PM EDT Office Visit [facility] [address] [facility] [place] [phone] Duong Looney MD [address] [place] [address] Risk and functional assessment*; Cyst, dermoid, trunk; Seborrheic keratosis Allergies Active Allergy Reactions Criticality Noted Date Comments Adhesive Tape 03/11/2003 redness Latex 01/18/2005 rash Lisinopril Cough Low 03/18/2014 Penicillins 07/14/1999 swelling Prednisone 04/20/2005 Pt says it makes her "bleed into her intestines" documented as of this encounter (statuses as of 07/29/2024) Medications Medication Sig Dispensed Refills Start Date End Date Status Blood Glucose Monitoring Suppl ([place] 2) w/Device KITIndications:Type 2 diabetes mellitus with [...] mellitus with diabetic neuropathy, unspecified 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 Do all this for 10 days. Until gone.. 20 Tablet 07/29/2024 Active documented as of this encounter (statuses as of 07/29/2024) Active Problems Problem Noted Date Diagnosed Date [...] DZ 09/08/2009 Overview: Per Diabetes Taxonomy. 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 [...] as of this encounter (statuses as of 07/29/2024) Immunizations Name Administration Dates Next Due COVID-19 [...] Passive Smoke Exposure: Past Smokeless Tobacco: Never Tobacco Cessation:Counseling Given: Not Answered Comments:quit in 1981 Alcohol Use Standard Drinks/Week [...] Sign Reading Time Taken Comments Blood Pressure 136/74 07/29/2024 4:19 PM EDT Pulse 80 07/29/2024 4:19 PM EDT Temperature 36.6 C (97.8 F) 07/29/2024 4:19 PM ED T Respiratory Rate 18 07/29/2024 4:19 PM EDT Oxygen Saturation 92% 07/29/2024 4:19 PM EDT Inhaled Oxygen Concentration - - Weight 108 kg (238 lb) 07/29/2024 4:19 PM EDT Height 165.1 cm (5' 5") 07/29/2024 4:19 PM EDT Body Mass Index 39.61 07/29/2024 4:19 PM EDT documented in this encounter Patient Instructions * Patient Instructions* Duong Looney MD - 07/29/2024 4:30 PM EDT Patient Instructions - Fall Prevention (This education is for all patients over 65 regardless of symptoms) Remember to take your current medications as prescribed. In order to prevent falls, you are encouraged to: Exercise Utilize assistive/adaptive devices Avoid multifocal lenses when walking Avoid hazards in home Maintain a regular toileting schedule Any questions please contact our office. Preventing Falls in the Home (This education is for all patients over 65 regardless of symptoms) As you get older, falls are more likely. Thats because your reaction time slows. Your muscles and joints may also get stiffer, making them less flexible. Illness, medications, and vision changes can also affect your balance. A fall could leave you unable to live on your own. To make your home safer, follow these tips: Floors Put nonskid pads under area rugs Remove throw rugs Replace worn floor coverings Tack carpets firmly to each step on carpeted stairs. Put nonskid strips on the edges of uncarpeted stairs Keep floors and stairs free of clutter and cords Arrange furniture so there are clear pathways Clean up any spills right away Bathrooms Install grab bars in the tub or shower Apply nonskid strips or put a nonskid rubber mat in the tub or shower Sit on a bath chair to bathe Use bathmats with nonskid backing Lighting Keep a flashlight in each room Put a nightlight along the pathway between the bedroom and the bathroom [employer] Patient Education Copyright 2008 - 2010 [employer] except where otherwise noted Preventing Falls: Exercises to Improve Balance, Flexibility, Strength, and Staying Power (This education is for all patients over 65 regardless of symptoms) Certain types of exercises may help make you less likely to fall. Try the ones below. Or do other exercises that your healthcare provider suggests. Depending on your health, you may need to start slowly. Dont let that stop you. Even small amounts of exercise can help you. Be sure to talk to yourhealthcare provider before starting any exercise program. Improve Balance Many types of exercise can help improve balance. Vikas chi and yoga are good examples. Heres another one to try. You can do it anytime and almost anywhere. Stand next to a counter or solid support. Push yourself up onto your tiptoes. Hold for 5 seconds. If you start to lose your balance, hold on to the counter. Rest and repeat 5 times. Work up to holding for 20 to 30 seconds, if you can. Increase Flexibility Being more flexible makes it easier for you to move around safely. Try exercises like the seated hamstring stretch. Sit in a chair and put one foot on a stool. Straighten your leg and reach with both hands down either side of your leg. Reach as far down your leg as you can. Hold for about 20 seconds. Go back to the starting position. Then repeat 5 times. Switch legs. Build Strength Resistance exercises help build strength. You can do them without equipment. Or you can use weights, elastic bands, or special machines. One such exercise is called the biceps curl. You can hold a 1 pound weight or even a can of soup. Do this exercise at least 3 times a week. Strive for everyday. Sit up straight in a chair. Keep your elbow close to your body and your wrist straight. Bend your arm, moving your hand up to your shoulder. Then slowly lower your arm. Repeat 5 times. Switch to the other arm. Build Your Staying Power Aerobic exercises make your heart and lungs stronger so you can keep moving longer. Walking and swimming are two of the best types of exercises you can do. Using a stationary bike is great, too. Find an aerobic exercise that you enjoy. Start slowly and build up. Even 5 minutes is helpful. Aimfor a goal of 30 minutes, at least 3 times a week. You dont have to do 30 minutes in one session. Break it up and walk a little throughout the day. More Helpful Tips Start easy. Slowly work up to doing more. Talk with your healthcare provider about the best exercises for you. Call senior centers or health clubs about exercise programs. If needed, have a family member watch you walk every so often to check your stability. Exercise with a friend. Choose an activity you both enjoy. Try exercises that you can do anytime, anywhere. Here are two examples. Have someone with you when you first try these: Practice walking by placing one foot right in front of the other. Stand up and sit down 10 times. Repeat this throughout the day. [employer] Patient Education Copyright 2008 [employer] except where otherwise noted. Preventing Falls: Moving Safely Using a Cane or Walker (This education is for all patients over 65 regardless of symptoms) Keep the cane away from your feet so you dont trip. A walking aid, such as a cane or walker, can help you stay more independent and avoid falls. Remember to keep your walking aid within easy reach when youre in a chair or in bed. And learn how to use it safely so you dont injure yourself. Using a Cane If you have a stronger side, hold the cane on that side. Get your balance. Move the cane and your weaker leg forward. Support your weight on both the cane and your weaker side. Step with your stronger leg. Start again from step 1. If youre using a folding walker, be sure you know how to lock it open. Check that its locked open before each use. Using a Walker Roll the walker (or lift it, if youre using one without wheels) forward about 12 inches. Step forward with your weaker leg first. Use the walker to help keep your balance. Bring your other foot forward to the center of the walker. Start again from step 1. Helpful Tips Check with your healthcare provider about the right walking aid to use. Ask about a walker with a seat attached. Check the tips of your cane or walker to make sure they have nonskid covers. Move slowly from room to room. Dont escalona. Sit down to get dressed. Use a ameena pack or backpack to keep your hands free. Get help for jobs that mean climbing, even on a stepstool. [employer] Patient Education Copyright 2008 - 2010 [employer] except where otherwise noted. ~~~Patient Instructions for Care of Surgical Wounds with Sutures~~~ 1. Leave bandage in place until tomorrow morning. 2. Remove bandage tomorrow morning. The area should then be washed gently with regular soap and water. It is okay to shower or shampoo. 3. Cleanse area twice daily and then apply a film of white petrolatum ointment over the wound. Continue until well healed. 4. Cover the area with a Band-Aid or dressing. 5. If any complications develop, such as redness, swelling, bleeding, drainage or fever, call your provider. documented in this encounter Progress Notes * Duong Looney MD - 07/29/2024 5:08 PM EDT Subjective: Keila Vital is a 88 year old female. Chief Complaint Patient presents with Procedure Areas to be froze off Has a cyst on her chest as well and is painful, started last week HPI: 88-year-old scheduled to have a number of skin lesions on her face and neck treated with liquid nitrogen. Additionally since this appointment was made she developed a cyst in the sternoclavicular area that has been Um painful. It is not draining. She has not had fever. She does not recall any trauma to the area. Patient Active Problem List Diagnosis GENERALIZED ANXIETY DIS Family history of other cardiovascular diseases OTHER PULMONARY EMBOLISM AND INFARCTION ADVANCE DIRECTIVE INFORMATION GENERAL OSTEOARTHROSIS Knee joint replacement status senior living current use of anticoagulant therapy DM TYPE [...] Sig Dispense Refill Blood Glucose Monitoring Suppl ([place] 2) w/Device KIT Use as directed to [...] Ellipta 200-62.5-25 MCG/ACT Aerosol Powder Breath Activated (Wiqrksdfatl-Irymsisxjnpp-Lkulryxloz) Inhale 1 Puff by mouth in the morning. 60 Blister Dosing Unit 11 LORazepam 1 MG Oral Tablet (Ativan) take [...] once daily E11.9 100 Strip 3 Nystatin 495335 UNIT/GM External Powder (Nyamyc) APPLY TOPICALLY TO AFFECTED AREA TWICE A DAY TO PANNUS FOLDS 60 g 0 Triamcinolone Acetonide 0.1 % External Cream (Aristocort) Apply topically to affected area 2 times a day. To affected area. 80 g 5 Polyethylene Glycol 3350 17 GM Oral Packet (MiraLax) Take 1 Packet by mouth in the morning. Furosemide 40 MG Oral Tablet (Lasix) Take 1 Tablet by mouth in the morning. 90 Tablet 5 metFORMIN HCl ER 500 MG Oral Tablet Extended Release 24 Hour (Glucophage XR) take 1 tablet by mouthevery morning with food MAY INCREASE TO 1 tablet by mouth twice a day IF TOLERATED 180 Tablet 1 No current facility-administered medications for this visit. Review of patient's allergies indicates: Allergen Reactions Adhesive Tape redness Latex rash Penicillins swelling Prednisone Pt says it makes her "bleed into her intestines" Lisinopril Cough Objective: BP 136/74 | Pulse 80 | Temp 36.6 C (97.8 F) | Resp 18 | Ht 1.651 m (5' 5") | Wt 108 kg (238 lb)| SpO2 92% | BMI 39.61 kg/m | BSA 2.23 m Physical Exam: CONST: alert, pleasant, no acute distress SKIN: There is a cystic superficial lump palpable in the anterior chest just inferior to the sternoclavicular joints in the midline. It does not come to a red but there is diffuse erythematous changes. It is mildly tender. She has multiple seborrheic keratotic lesions on the face including a prominent 1 cm lesion in the right temporal area in slightly larger than a cm to lesions that are brown pigmented in flat over the left temporal in mid forehead region. She has some smaller less than 6 mm lesions over the left cheek in midpoint of the nose. She has a 6 mm slightly raised brownish keratotic lesion in the left lateral neck area ASSESSMENT/PLAN: Multiple seborrheic keratotic lesions as noted above. Each of these lesions was treated with liquidnitrogen, thought and then a 2nd application of liquid nitrogen. The more raised lesion in the right temporal area may not respond to the liquid nitrogen given how thick it is. She was Um warned about changes in the skin or likely to occur including sores. She can use either Vaseline or triple antibiotic ointment to these areas. Dermoid cyst anterior chest-recommend heating pad or warm soaks several times a day. Add Bactrim DS1 twice a day for 10 days. Refer to General Surgery for excision. Duong Looney MD documented in this encounter Nursing Notes * Jennifer Ma LPN - 07/29/2024 4:28 PM EDT The patient has been properly identified by confirmation of name and date of . Chief Complaint Patient presents with Procedure Areas to be froze off Has a cyst on her chest as well and is painful, started last week documented in this encounter Plan of Treatment Upcoming Encounters Date Type Department Care Team (Late st Contact Info) Description 08/19/2024 1:30 PM EDT Office Visit Urology, [address] [place] [address] Jeremy Vital MD [address] [place] [address] 09/02/2024 11:50 AM EDT 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 [place] [address] [facility] [address] [facility] [address] [place] [address] 09/22/2024 3:00 PM EST Office Visit Cardiology, [facility] [address] [facility] [place] [address] Duong Paz PA-C [address] [place] [address] 11/23/2024 12:20 PM EST Office Visit [facility] Practice, [place] [address] [facility] [phone] Duong Looney MD [address] [place] [address] Scheduled Orders Name Type Priority Associated Diagnoses Orde r Schedule BENIGN LESION DESTRUCTION, UP TO 14 LESIONS Procedures Routine Seborrheic keratosis Ordered: 07/29/2024 Scheduled Referrals Name Type Priority Associated Diagnoses Orde r Schedule SURGERY REFERRAL OP Referral Within 30 da ys (routine) Cyst, dermoid, trunk Ordered: 07/29/2024 Health Maintenance Due Date Last Done Comments [...] as of this encounter Visit Diagnoses Diagnosis Risk and functional assessment- Primary Screening for unspecified condition Cyst, dermoid, trunk Benign neoplasm of skin of trunk, except scrotum Seborrheic keratosis Other seborrheic keratosis documented in this encounter Advance Directives * No Code Status (Latest Code Status on File) Date Activated Date Inactivated Comments 10/18/2004 9:59 AM 10/18/2004 10:59 AM Care Teams Retort Loader Relationship Specialty Start Date End Date Duong Looney MD [address] [place] [address] PCP - General 07/31/00 documented as of this encounter
--- OUTSIDE RECORDS SUMMARY | 2024-08-01 13:49 | External Medical Summary | Summary of Care ---
Author Name Unknown Organization [facility] Address [address] [place] [address] Phone [phone] Care Team Providers Care Batch Plant Supervisor Name Role Phone Neema Looney MD Primary Care Provider [phone] Reason for Visit * Reason Onset Date Comments Advice 06/05/2024 Encounter Details Date Type Department Care Team (Late st Contact Info) Description 06/05/2024 Telephone [facility] [address] [place] [facility] [place] [place] [address] Neema Looney MD [address] [place] [address] Advice Allergies Active Allergy Reactions Criticality Noted Date Comments Adhesive Tape 03/11/2003 redness Latex 01/18/2005 rash Lisinopril Cough Low 03/18/2014 Penicillins 07/14/1999 swelling Prednisone 04/20/2005 Pt says it makes her "bleed into her intestines" documented as of this encounter (statuses as of 06/10/2024) Medications Medication Sig Dispensed Refills Start Date End Date Status Blood Glucose Monitoring Suppl (Gourmet OriginsTOUCH ULTRA 2) w/Device KITIndications:Type 2 diabetes mellitus [...] less than 8.0% ([facility]) TEST once daily E11.9 100 Strip 3 04/30/2024 Active Nystatin 247127 UNIT/GM External Powder (Nyamyc)Indications:C andidal skin infection [...] NEURO DZ 09/08/2009 Overview: Per Diabetes Taxonomy. 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 [facility] will not accept without it. * Telephone [...] the order sent to [facility] at [phone] for the portable oxygen. Was seen yesterday for hospital discharge. See that at the bottom but not finding an order. Please call precious fraser at [phone] once the fax is sent to [employer] so she can verify it to go pick it up. This is a new fax number to send the order to. Thank you documented in this encounter Plan of Treatment Upcoming Encounters Date Type Department Care Team (Late st Contact Info) Description 06/22/2024 1:20 PM EDT 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 Pharmacy, [place] [address] [place] [address] [facility] [address] [place] [address] 07/14/2024 11:50 AM EDT 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 Pharmacy, [place] [address] [place] [address] [facility] [address] [place] [address] 07/29/2024 4:20 PM EDT Office Visit Family [facility], [place] [address] [place] [phone] Neema Looney MD [address] [place] [address] 08/19/2024 1:30 PM EDT Office Visit Urology, [facility] [address] [facility] [place] [address] Jeremy Vital MD [address] [place] [address] 09/22/2024 3:00 PM EST Office Visit Cardiology, [facility] [address] [place] [address] Neema Paz, PA-C [address] [place] [address] 11/23/2024 12:20 PM EST [facility] Visit [facility] [address] [facility] [phone] Neema Looney MD [address] [place] [address] Health Maintenance Due Date Last Done Comments [...] 9:59 AM 10/18/2004 10:59 AM Care Teams Batch Plant Supervisor Relationship Specialty Start Date End Date Neema Looney MD [address] [facility] [place] [address] PCP - General 07/31/00 documented as of this encounter
--- OUTSIDE RECORDS SUMMARY | 2024-08-01 13:49 | External Medical Summary | Summary of Care ---
Author Name Unknown Organization [facility] Address [address] [place] [address] Phone [phone] Care Team Providers Care Tool Lapper Hand Name Role Phone Neema Looney MD Primary Care Provider [phone] Reason for Visit * Reason Comments eRx-Medication Refill Encounter Details Date Type Department Care Team (Late st Contact Info) Description 06/29/2024 Refill [facility] [address] [place] [address] Neema Looney MD [address] [place] [address] Type 2 diabetes mellitus with hemoglobin A1c goal of less than 8.0% ([facility]) Allergies Active Allergy Reactions Criticality Noted Date Comments Adhesive Tape 03/11/2003 redness Latex 01/18/2005 rash Lisinopril Cough Low 03/18/2014 Penicillins 07/14/1999 swelling Prednisone 04/20/2005 Pt says it makes her "bleed into her intestines" documented as of this encounter (statuses as of 06/30/2024) Medications Medication Sig Dispensed Refills Start Date End Date Status Blood Glucose Monitoring Suppl (AlertEnterpriseTOUCH ULTRA 2) w/Device KITIndications:Type 2 diabetes mellitus [...] at bedtime. 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 90 Tablet 2 3 Active Trelegy Ellipta 200-62.5-25 MCG/ACT Aerosol [...] A1c goal of less than 8.0% ([facility]) TEST once daily E11.9 100 Strip 3 4 Active Nystatin 573663 UNIT/GM External Powder (Nyamyc)Indications: Candidal skin infection [...] IF TOLERATED 180 Tablet 1 4 Active metFORMIN HCl ER 500 MG Oral Tablet Extended Release 24 Hour (Glucophage XR)Indications:Type 2 diabetes mellitus with hemoglobin A1c goal of less than 8.0% ([facility]) take 1 tablet by mouth every morning with food MAY INCREASE TO 1 tablet by mouth twice a day IF TOLERATED 180 Tablet 1 3 06/30/20 24 Discontinued documented as of this encounter (statuses as of 06/30/2024) Active Problems Problem Noted Date Diagnosed Date [...] NEURO DZ 09/08/2009 Overview: Per Diabetes Taxonomy. 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 [...] as of this encounter (statuses as of 06/30/2024) Immunizations Name Administration Dates Next Due COVID-19 [...] encounter Miscellaneous Notes * Telephone Encounter - Gissell Horvath RPh - 06/30/2024 3:11 PM EDTSigned Prescriptions: Disp Refills metFORMIN HCl ER 500 MG Oral Tablet Extend*180 Ta*1 Sig: take 1 tablet by mouth every morning with food MAY INCREASE TO 1 tablet by mouth twice a day IF TOLERATEDAuthorizing Provider: NEEMA LOONEY User: GISSELL HORVATH documented in this encounter Plan of Treatment Upcoming Encounters Date Type Department Care Team (Late st Contact Info) Description 07/15/2024 1:10 PM EDT 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 Pharmacy, [address] [place] [address] [facility] [address] [place] [facility] [place] [address] 07/29/2024 4:20 PM EDT Office Visit Family [facility], [place] [address] [place] [phone] Neema Looney MD [address] [place] [address] 08/19/2024 1:30 PM EDT Office Visit Urology, [facility] [address] [place] [address] Jeremy Vital MD [address] [place] [address] 09/22/2024 3:00 PM EST Office Visit Cardiology, [facility] [address] [place] [address] Neema Paz PA-C [address] [place] [address] 11/23/2024 12:20 PM EST Office Visit [facility] [address] [place] [facility] [phone] Neema Looney MD [address] [place] [address] Health Maintenance Due Date Last Done Comments [...] 9:59 AM 10/18/2004 10:59 AM Care Teams Tool Lapper Hand Relationship Specialty Start Date End Date Neema Looney MD [address] [facility] [place] [address] PCP - General 07/31/00 documented as of this encounter
--- OUTSIDE RECORDS SUMMARY | 2024-08-01 13:50 | External Medical Summary | Summary of Care ---
Author Name Unknown Organization [facility] Address [address] [place] [address] Phone [phone] Care Team Providers Care Facility Engineer Name Role Phone Duong Looney MD Primary Care Provider Reason for Visit * Reason Comments Outpatient Testing Encounter Details Date Type Department Care Team (Late st Contact Info) Description 06/09/2024 1:50 PM EDT Laboratory Laboratory, [place] [address] [place] [address] [place] [address] [place] [address] Hx of diastolic dysfunction; Hypomagnesemia Allergies Active Allergy Reactions Criticality Noted Date Comments Adhesive Tape 03/11/2003 redness Latex 01/18/2005 rash Lisinopril Cough Low 03/18/2014 Penicillins 07/14/1999 swelling Prednisone 04/20/2005 Pt says it makes her "bleed into her intestines" documented as of this encounter (statuses as of 06/09/2024) Medications Medication Sig Dispensed Refills Start Date End Date Status Blood Glucose Monitoring Suppl (UGOBETOUCH ULTRA 2) w/Device KITIndications:Type 2 diabetes mellitus [...] diabetes mellitus with diabetic neuropathy, unspecified whether long-term insulin use (HCC),Restless leg syndrome take 1 [...] E11.9 100 Strip 3 04/30/2024 Active Nystatin 945310 UNIT/GM External Powder ([facility])Indications:C andidal skin infection APPLY TOPICALLY TO [...] as of this encounter (statuses as of 06/09/2024) Active Problems Problem Noted Date Diagnosed Date [...] NEURO DZ 09/08/2009 Overview: Per Diabetes Taxonomy. retirement current use of anticoagulant therapy 0 06/15/2005 [...] as of this encounter (statuses as of 06/09/2024) Resolved Problems Problem Noted Date Diagnosed Date Resolved Date retirement current use of ant icoagulant therapy 11/25/2020 [...] as of this encounter (statuses as of 06/09/2024) Immunizations Name Administration Dates Next Due COVID-19 [...] Description 06/22/2024 1:20 PM EDT 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 Pharmacy, [place] [address] [place] [address] [facility] [address] [place] [address] 07/14/2024 11:50 AM EDT 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 Pharmacy, [place] [address] [place] [address] [facility] [address] [place] [address] 07/29/2024 4:20 PM EDT Office Visit [facility], [place] [address] [place] [address] [facility] [address] [facility] [address] 08/19/2024 1:30 PM EDT Office Visit Urology, [facility] [address] [place] [address] Jeremy Vital MD [address] [address] 09/22/2024 3:00 PM EST Office Visit Cardiology, [facility] [address] [place] [address] Duong Paz PA-C [address] [place] [address] 11/23/2024 12:20 PM EST Office Visit [facility] [address] [place] [phone] Duong Looney MD [address] [place] [address] Pending Results Name Type Priority Associated Diagnoses Date /Time BASIC METABOLIC PANEL Lab Routine Hx of diastolic dysfunction 06/09/2024 1:30 PM EDT MAGNESIUM Lab Routine Hypomagnesemia 06/09/2024 1:30 PM EDT Health Maintenance Due Date Last [...] as of this encounter Visit Diagnoses Diagnosis Hx of diastolic dysfunction Personal history of other diseases of circulatory system Hypomagnesemia Disorders of magnesium metabolism documented in this encounter Advance Directives * No Code Status (Latest Code Status on File) Date Activated Date Inactivated Comments 10/18/2004 9:59 AM 10/18/2004 10:59 AM Care Teams Facility Engineer Relationship Specialty Start Date End Date Duong Looney MD [address] [place] [address] PCP - General 07/31/00 documented as of this encounter
--- OUTSIDE RECORDS SUMMARY | 2024-08-01 13:50 | External Medical Summary | Summary of Care ---
Author Name Unknown Organization [facility] Address [address] Care Team Providers Care Dress Cutter Name Role Phone Duong Looney MD Primary Care Provider [phone] Reason for Visit * Reason Onset Date Comments Advice 05/29/2024 Encounter Details Date Type Department Care Team (Late st Contact Info) Description 05/29/2024 Telephone Pharmacy, [facility] Ale[place] [address] [facility] [place] [address] [place] [facility] [address] [facility] [place] [address] Advice Allergies Active Allergy Reactions Criticality Noted Date Comments Adhesive Tape 03/11/2003 redness Latex 01/18/2005 rash Lisinopril Cough Low 03/18/2014 Penicillins 07/14/1999 swelling Prednisone 04/20/2005 Pt says it makes her "bleed into her intestines" documented as of this encounter (statuses as of 06/01/2024) Medications Medication Sig Dispensed Refills Start Date End Date Status Blood Glucose Monitoring Suppl (NuvilexTOUCH ULTRA 2) w/Device KITIndications:Type 2 diabetes mellitus with hemoglobin A1c goal of less than 8.0% ([facility]) Use as directed to test blood [...] diabetes mellitus with diabetic neuropathy, unspecified whether manager 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 insulin use (HCC),Restless leg syndrome take 1 [...] goal of less than 8.0% ([facility]) take 1 tablet by mouth every morning [...] goal of less than 8.0% ([facility]) TEST once daily E11.9 100 Strip 3 04/30/2024 Active Nystatin [id number] UNIT/GM External Powder ([facility])Indications:C andidal skin infection [...] as of this encounter (statuses as of 06/01/2024) Active Problems Problem Noted Date Diagnosed Date [...] NEURO DZ 09/08/2009 Overview: Per Diabetes Taxonomy. custodial current use of anticoagulant therapy 0 06/15/2005 [...] as of this encounter (statuses as of 06/01/2024) Resolved Problems Problem Noted Date Diagnosed Date Resolved Date custodial current use of ant icoagulant therapy 11/25/2020 [...] as of this encounter (statuses as of 06/01/2024) Immunizations Name Administration Dates Next Due COVID-19 [...] Notes * Telephone Encounter - Cammie Salinas [facility] - 06/01/2024 10:48 AM EDT Patient Phone Numbers Spoke to Precious. Patient is now admitted at [facility]. Will check for discharge Saturday. Cammie Salinas, PharmD, BCACP Clinical Pharmacist Medication Therapy Disease Management 06/01/2024, 10:50 AM * Telephone Encounter - Nina Peterson CPhT - 05/29/2024 3:58 PM EDT Caller's name: Precious Preferred call back number(OFFICE NUMBER FOR ): [phone] Reason for call: requesting a call from Cammie, has some questions about the warfarin dosing, thank you. Nina Peterson CPhT, [employer]er II [facility] ([facility] (formerly [facility]pharm[facility]) [address] [facility] [address] [place] [address] ext [phone] documented in this encounter Plan of Treatment Upcoming Encounters Date Type Department Care Team (Late st Contact Info) Description 06/03/2024 5:50 PM EDT 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 Pharmacy, [address] [place] [address] [facility] [address] [place] [facility] [place] [address] 07/14/2024 11:50 AM EDT 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 [facility], [place] [address] [place] [address] [facility] [address] [place] [facility] [place] [address] 07/29/2024 4:20 PM EDT Office Visit [place] [address] [place] [facility] [facility] [place] [phone] Duong Looney MD [address] [place] [facility] [place] [address] 08/19/2024 1:30 PM EDT Office Visit Urology, [facility] [address] [facility] [place] [address] Jeremy Vital MD [address] [place] [address] 11/23/2024 12:20 PM EST Office Visit [place] [address] [place] [facility] [place] [phone] Duong Looney MD [address] [place], [place] [phone] Health Maintenance Due Date Last Done Comments [...] 9:59 AM 10/18/2004 10:59 AM Care Teams Dress Cutter Relationship Specialty Start Date End Date Duong Looney MD [address] [place] [address] PCP - General 07/31/00 documented as of this encounter
--- OUTSIDE RECORDS SUMMARY | 2024-08-01 13:50 | External Medical Summary ---
Author Name Unknown Address Unknown Organization K01:[facility] [place] [facility] [address] [facility] [address] [place] [address] Laboratory Report Ordering Provider Test Date Status NOE BETHEA 06/09/2024 13:30:45 Final Observation Date Value Abnormality Reference (Units ) Status BUN 06/09/2024 13:30:45 23 Above high normal 6-20 (mg/dL) Final Creatinine 06/09/2024 13:30:45 1.1 Above high normal 0.5-1.0 (mg/dL) Final Glomerular filtration rate/1.73 sq M.predicted [Volume Rate/Area] in Serum, Plasma or Blood by Creatinine-based formula (CKD-EPI) 06/09/2024 13:30:45 49 Below low normal >=60 (mL/min) Final eGFR is calculated based on the CKD-EPI 2020 equation. Sodium 06/09/2024 13:30:45 141 135-146 (m mol/L) Final Potassium 06/09/2024 13:30:45 4.8 3.5-5.1 (m mol/L) Final Cl 06/09/2024 13:30:45 101 98-107 (mm ol/L) Final CO2 06/09/2024 13:30:45 30 22-32 (mmo l/L) Final Anion gap 06/09/2024 13:30:45 10 7-15 (mmol /L) Final Glucose 06/09/2024 13:30:45 101 70-120 (mg /dL) Final Calcium 06/09/2024 13:30:45 9.4 8.4-10.2 ( mg/dL) Final Performing Location [facility] [place] [address] [place] [address]
--- OUTSIDE RECORDS SUMMARY | 2024-08-01 13:50 | External Medical Summary | Summary of Care ---
Author Name Unknown Organization [facility] Address [address] [place] [address] Phone [phone] Care Team Providers Care Keno Manager Name Role Phone Duong Looney MD Primary Care Provider [phone] Reason for Visit * Reason Onset Date Comments Test Results 05/28/2024 [facility] 05/29 Encounter Details Date Type Department Care Team (Late st Contact Info) Description 05/28/2024 Telephone Urology Melvin Navarrete [address] [place] [address] Jeremy Vital MD [address] [place] [address] Test Results ([facility] 05/29) Allergies Active Allergy Reactions Criticality Noted Date Comments Adhesive Tape 03/11/2003 redness Latex 01/18/2005 rash Lisinopril Cough Low 03/18/2014 Penicillins 07/14/1999 swelling Prednisone 04/20/2005 Pt says it makes her "bleed into her intestines" documented as of this encounter (statuses as of 06/01/2024) Medications Medication Sig Dispensed Refills Start Date End Date Status Blood Glucose Monitoring Suppl (SmartfieldTOUCH ULTRA 2) w/Device KITIndications:Type 2 diabetes mellitus [...] mellitus with diabetic neuropathy, 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 Started bactrim late Saturday. She took patient to [facility] Saturday morning, patient was admitted, discharge planned for tomorrow. Records printed and scanned. Please review and advise if you have any recommendations at discharge. Thank you Марина * Telephone Encounter - Jesica Keane LPN - 05/29/2024 11:01 AM EDT lm * Telephone Encounter - Jeremy Vital MD - 05/28/2024 4:35 PM EDT Urine culture is positive, 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 sensitivity self start Macrobid. Prescription for Bactrim sent to the patient's pharmacy for breakthrough coverage. Thanks, HM documented in this encounter Plan of Treatment Upcoming Encounters Date Type Department Care Team (Late Contact Info) Description 06/03/2024 5:50 PM EDT 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 Pharmacy, [place] [address] [place] [facility] [place] [address] [place] [address] [place] [facility] [place] [address] 06/04/2024 10:20 AM EDT Office Visit [facility], [place] [address] [facility] [place] [phone] Duong Looney MD [address] [facility], [place] [id number] 07/14/2024 11:50 AM EDT 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 Pharmacy, [place] [address] [place] [facility] [place] [address] [facility] [address] [facility], [place] [address] 07/29/2024 4:20 PM EDT Office Visit [facility], [place] [address] [facility], [place] [address] Duong Looney MD [address] [facility], [place] [phone] 08/19/2024 1:30 PM EDT Office Visit Urology, [facility] [address] [facility] [place] [address] Jeremy Vital MD [address] [place] [id number] 11/23/2024 12:20 PM EST Office Visit [facility], [place] [address] [facility] [place] [address] Duong Looney MD [address] [facility], [place] [address] Health Maintenance Due Date Last Done Comments [...] 9:59 AM 10/18/2004 10:59 AM Care Teams Keno Manager Relationship Specialty Start Date End Date Duong Looney MD [address] [place] [address] PCP - General 07/31/00 documented as of this encounter
--- OUTSIDE RECORDS SUMMARY | 2024-08-01 13:50 | External Medical Summary ---
Author Name Unknown Address Unknown Organization K01:[facility] - [address] [place] [address] Laboratory Report Ordering Provider Test Date Status NOE BETHEA 06/09/2024 13:30:45 Final Observation Date Value Abnormality Reference (Units ) Status Magnesium 06/09/2024 13:30:45 1.8 1.5-2.6 (m g/dL) Final Performing Location [facility] - [address] [place] [address]
--- OUTSIDE RECORDS SUMMARY | 2024-08-01 13:50 | External Medical Summary | Summary of Care ---
Author Name Unknown Organization [facility] Address [address] [place] [address] Phone [phone] Care Team Providers Care Human Resources Coordinator Name Role Phone Duong Looney MD Primary Care Provider [phone] Reason for Visit * Reason Onset Date Comments Hospital Follow-Up Patient is he re today for a hospital follow up. Patient was admitted at [facility] from 05/30- for a UTI and congestive heart failure.Patient would like a prescription for a portable oxygen concentrator. Patient has tremors that weren't present while in the hospital. Patient has a small lump on left hand that is painful. Hospital Follow-Up 06/04/2024 Encounter Details Date Type Department Care Team (Late st Contact Info) Description 06/04/2024 10:20 AM EDT Office Visit [facility] [address] [place] [phone] Duong Looney MD [address] [place] [address] Benign essential tremor*; Hx of diastolic dysfunction; Hypomagnesemia; COPD with asthma ([facility]); Hospital discharge follow-up Allergies Active Allergy Reactions Criticality Noted Date Comments Adhesive Tape 03/11/2003 redness Latex 01/18/2005 rash Lisinopril Cough Low 03/18/2014 Penicillins 07/14/1999 swelling Prednisone 04/20/2005 Pt says it makes her "bleed into her intestines" documented as of this encounter (statuses as of 06/04/2024) Medications Medication Sig Dispensed Refills Start Date End Date Status Blood Glucose Monitoring Suppl ([employer] 2) w/Device KITIndications:Type 2 diabetes mellitus with [...] diabetes mellitus with diabetic neuropathy, unspecified whether retirement insulin use (HCC),Restless leg syndrome take 1 [...] IF TOLERATED 180 Tablet 1 3 Active Trelegy Ellipta 200-62.5-25 MCG/ACT Aerosol [...] the morning. 90 Tablet 3 4 Active ZAO Begun Ultra In Vitro Strip (Glucose Blood)Indications:Ty pe 2 diabetes mellitus with hemoglobin A1c goal of less than 8.0% ([facility]) TEST once daily E11.9 100 Strip 3 4 Active Nystatin 961617 UNIT/GM External Powder ([facility])Indications: Candidal skin infection APPLY TOPICALLY TO AFFECTED AREA TWICE A DAY TO PANNUS FOLDS 60 g 4 Active Triamcinolone Acetonide 0.1 % External Cream (Aristocort)Indicati ons:Dermatitis Apply topically to affected area 2 times a day. To affected area. 80 g 5 4 Active Sulfamethoxazole-Tri methoprim 800-160 MG Oral Tablet (Bactrim DS) Take 1 Tablet by mouth in the morning and 1 Tablet before bedtime. Use as directed.. 14 Tablet 4 Active Polyethylene Glycol 3350 17 GM Oral Packet (MiraLax) Take 1 Packet by mouth in the morning. Active Furosemide 40 MG Oral Tablet (Lasix)Indications:H x of diastolic dysfunction Take 1 Tablet by mouth in the morning. 90 Tablet 5 4 Active Furosemide 20 MG Oral Tablet (Lasix) take 1 tablet by mouth three times a week and 2 tablets by mouth ON ALL OTHER DAYS 180 Tablet 1 4 06/04/20 24 Discontinued documented as of this encounter (statuses as of 06/04/2024) Active Problems Problem Noted Date Diagnosed Date [...] as of this encounter (statuses as of 06/04/2024) Resolved Problems Problem Noted Date Diagnosed Date Resolved Date nursing home current use of ant icoagulant therapy 11/25/2020 [...] as of this encounter (statuses as of 06/04/2024) Immunizations Name Administration Dates Next Due COVID-19 [...] Sign Reading Time Taken Comments Blood Pressure 134/82 06/04/2024 10:21 AM EDT Pulse 72 06/04/2024 10:21 AM EDT Temperature 36.9 C (98.4 F) 06/04/2024 1 0:21 AM EDT Respiratory Rate 16 06/04/2024 10:2 1 AM EDT Oxygen Saturation 90% 06/04/2024 10: 21 AM EDT Inhaled Oxygen Concentration - - Weight 108.6 kg (239 lb 6.4 oz) 024 10:21 AM EDT Height 165.1 cm (5' 5") 06/04/2024 10:2 1 AM EDT Body Mass Index 39.84 06/04/2024 10:21 AM EDT documented in this encounter Progress Notes * Duong Looney MD - 06/04/2024 2:38 PM EDT Subjective: Keila Vital is a 88 year old female. Chief Complaint Patient presents with Hospital Follow-Up Patient is here today for a hospital follow up. Patient was admitted at [facility] from 05/30- for a UTI and congestive heart failure. Patient would like a prescription for a portable oxygen concentrator. Patient has tremors that weren't present while in the hospital. Patient has a small lump on left hand that is painful. Hospital Follow-Up HPI: 88-year-old seen today in the office accompanied by her daughter. She was recently hospitalized [place] from May 30 to June 02. She presented to the hospital because of urinary symptoms including dysuria and frequency. She had notify the office of urinary symptoms 2 days prior and at that point she submitted a urine for culture was empirically started on Macrobid. The culture grew E coli with 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 sensitivity to nitrofurantoin. . In addition to the urinary symptoms that had not resolved on the Macrobid she felt sick and weak and some short of breath. She was treated with IV ceftriaxone for the urinary tract infection. Ultimately at time of discharge she was switched to oral Bactrim to continue for 3 more days. At the time she was seen in the office she had 1 more day of Bactrim to take. She was felt the have acute on chronic diastolic heart failure. She was noted to be hypoxic. BNP was very slightly elevated 148. Echocardiogram showed normal ejection fraction but severe bilateral atrial enlargement. There was no significant valvular abnormality. She was given IV Lasix and that is seem to resolve her dyspnea. It should be noted that she takes Lasix 40 mg 4 days a week and 20 mg 3days a week prior to admission. She had missed Lasix a couple of days within the week before her admission. She was noted to be hypoxic with 2 step oxygen evaluation. Additionally she was noted to have multiple desaturations on overnight pulse oximetry. She was discharged on oxygen 2 L to use at nighttime and with daytime activities. She was found to be slightly hypo magnesium medic on admission and was given a dose of IV magnesium. Patient Active Problem List Diagnosis GENERALIZED ANXIETY DIS Family history of other cardiovascular diseases OTHER PULMONARY EMBOLISM AND INFARCTION ADVANCE DIRECTIVE INFORMATION GENERAL OSTEOARTHROSIS Knee joint replacement status nursing home current use of anticoagulant therapy DM TYPE [...] Sig Dispense Refill Blood Glucose Monitoring Suppl ([email or web address] ULTRA 2) w/Device KIT Use as directed to test blood sugar twice daily E11.9 1 Kit 0 Acetaminophen 500 MG Oral Tablet (TYLENOL) Take 2 Tablets by mouth every 6 hours as needed for Pain, Mild. 100 Tab 0 PreserVision AREDS 2+Multi Vit Oral Capsule Take 2 Caps by mouth once for 1 dose. 60 Cap 0 Albuterol Sulfate HFA 108 (90 Base) MCG/ACT [...] Ellipta 200-62.5-25 MCG/ACT Aerosol Powder Breath Activated (Aqmawovgjyu-Bhttpszxrghn-Gzmcjjvccz) Inhale 1 Puff by mouth in the [...] by mouth in the morning. 90 Tablet3 ZAO Begun Ultra In Vitro Strip (Glucose Blood) TEST once daily E11.9 100 Strip 3 Nystatin 111730 UNIT/GM External Powder (Nyamyc) APPLY TOPICALLY TO AFFECTED AREA TWICE A DAY TO PANNUS FOLDS 60 g 0 Triamcinolone Acetonide 0.1 % External Cream (Aristocort) Apply topically to affected area 2 times a day. To affected area. 80 g 5 Sulfamethoxazole-Trimethoprim 800-160 MG Oral Tablet (Bactrim DS) Take 1 Tablet by mouth in the morning and 1 Tablet before bedtime. Use as directed.. 14 Tablet 0 Polyethylene Glycol 3350 17 GM Oral Packet (MiraLax) Take 1 Packet by mouth in the morning. Furosemide 40 MG Oral Tablet (Lasix) Take 1 Tablet by mouth in the morning. 90 Tablet 5 Loperamide HCl 2 MG Oral Capsule (Imodium) Take 1 Capsule by mouth as needed for Diarrhea. No current facility-administered medications for this visit. Review of patient's allergies indicates: Allergen Reactions Adhesive Tape redness Latex rash Penicillins swelling Prednisone Pt says it makes her "bleed into her intestines" Lisinopril Cough Objective: BP 134/82 | Pulse 72 | Temp 36.9 C (98.4 F) (Tympanic) | Resp 16 | Ht 1.651 m (5' 5") | Wt 108.6 kg (239 lb 6.4 oz) | SpO2 90% | BMI 39.84 kg/m | BSA 2.23 m Physical Exam: CONST: alert, pleasant, no acute distress HEAD: normocephalic, atraumatic NECK: supple, soft, no adenopathy Eyes - PERRLA, EOM'I OROPHARYNX: clear, no swelling or erythema, moist CV: regular rate and rhythm, no murmur CHEST: clear to auscultation bilaterally, no rales or wheezing ABD: soft, non tender, non distended, no masses or hepatosplenomegaly EXT: no edema, no joint swelling or deformities, NEURO: Moderate intention tremor both upper extremities noted MENTAL STATUS: no evidence of thoughtdisorder, no delusional thought, no evidence of paranoia, thought is non-tangential. SKIN: no rash or significant lesions ASSESSMENT/PLAN: Benign essential tremor (Primary)-no medication recommended at this time Hx of diastolic dysfunction with acute exacerbation. Likely the cause of her hypoxemia - BASIC METABOLIC PANEL; Future; Expected date: 06/04/2024 - BASIC METABOLIC PANEL; Future; Expected date: 06/04/2024 - Furosemide 40 MG Oral Tablet (Lasix); Take 1 Tablet by mouth in the morning. Furosemide dosing has been increased to 40 mg every day. That is total increase of 60 mg per week Hypomagnesemia - MAGNESIUM; Future; Expected date: 06/04/2024 - MAGNESIUM; Future; Expected date: 06/04/2024 COPD with asthma (HCC) - DURABLE MEDICAL EQUIPMENT-home portable oxygen concentrator Hospital discharge follow-up - DISCH MED RECON CUR MED LIS Check-out note: Rtc for nonfasting blood work next sat or . aLSO another blood draw 10 days later Please [facility] cardiology to see her sometime in Fall. She sees them on regular [facility] Duong Looney MD * Lauren Foster MED ASSIST - 06/04/2024 10:38 AM EDT Patient's oxygen was below 90, placed patient on 2 L of oxygen. documented in this encounter Nursing Notes * Lauren Foster MED ASSIST - 06/04/2024 10:29 AM EDT The patient has been properly identified by confirmation of name and date of . Chief Complaint Patient presents with Hospital Follow-Up Patient is here today for a hospital follow up. Patient was admitted at [facility] from 05/30- for a UTI and congestive heart failure. Patient would like a prescription for a portable oxygen concentrator. Patient has tremors that weren't present while in the hospital. Patient has a small lump on left hand that is painful. Patient's oxygen fell below 90, patient was placed on 2L of oxygen. documented in this encounter Plan of Treatment Upcoming Encounters Date Type Department Care Team (Late st Contact Info) Description 06/22/2024 1:20 PM EDT 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 Pharmacy, [place] [address] [place] [facility] [place] [address] [facility] [address] [place] [facility] [address] 07/14/2024 11:50 AM EDT 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 Pharmacy, [place] [address] [place] [facility] [address] [facility] [address] [place] [facility] [address] 07/29/2024 4:20 PM EDT Office Visit [facility], [place] [address] [place] [facility] [place] [phone] Duong Looney MD [address] [place] [facility] [place] [address] 08/19/2024 1:30 PM EDT Office Visit Urology, [facility] [address] [facility] [place] [address] Jeremy Vital MD [address] [place] [address] 09/22/2024 3:00 PM EST Office Visit Cardiology, [facility] [address] [facility] [place] [address] Duong Paz PA-C [address] [facility] [place] [address] 11/23/2024 12:20 PM EST Office Visit [facility], [place] [address] [place] [facility] [phone] [facility] [address] [facility] [address] Scheduled Orders Name Type Priority Associated Diagnoses Orde r Schedule MAGNESIUM Lab Routine Hypomagnesemia Expected: 06/04/2024 (Approximate), Expires: 06/04/2025 BASIC METABOLIC PANEL Lab Routine Hx of diastolic dysfunction Expected: 06/04/2024 (Approximate), Expires: 06/04/2025 BASIC METABOLIC PANEL Lab Routine Hx of diastolic dysfunction Expected: 06/04/2024 (Approximate), Expires: 06/04/2025 MAGNESIUM Lab Routine Hypomagnesemia Expected: 06/04/2024 (Approximate), Expires: 06/04/2025 Health Maintenance Due Date Last Done Comments [...] as of this encounter Visit Diagnoses Diagnosis Benign essential tremor- Primary Essential and other specified forms of tremor Hx of diastolic dysfunction Personal history of other diseases of circulatory system Hypomagnesemia 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
--- OUTSIDE RECORDS SUMMARY | 2024-08-01 13:50 | External Medical Summary | Summary of Care ---
Author Name Unknown Organization [facility] Address [address] [place] [address] Phone [phone] Care Team Providers Care Care Transitions Manager Name Role Phone Duong Looney MD Primary Care Provider [phone] Reason for Visit * Reason Comments Status Check Encounter Details Date Type Department Care Team (Latest Contact Info) Description 06/03/2024 5:50 PM EDT 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 Pharmacy, [place] [address] [place] [address] [facility] [address] [place] [address] 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 management encounter*; Personal history of TIA (transient ischemic attack) Allergies Active Allergy Reactions Criticality Noted Date Comments Adhesive Tape 03/11/2003 redness Latex 01/18/2005 rash Lisinopril Cough Low 03/18/2014 Penicillins 07/14/1999 swelling Prednisone 04/20/2005 Pt says it makes her "bleed into her intestines" documented as of this encounter (statuses as of 06/03/2024) Medications Medication Sig Dispensed Refills Start Date End Date Status Blood Glucose Monitoring Suppl ([employer] ULTRA 2) w/Device KITIndications:Type 2 diabetes mellitus with hemoglobin A1c goal of less than 8.0% ([facility]) Use as directed to test [...] diabetes mellitus with diabetic neuropathy, unspecified whether chcf insulin use (HCC),Restless leg syndrome take 1 [...] goal of less than 8.0% ([facility]) take 1 tablet by mouth [...] goal of less than 8.0% ([facility]) TEST once daily E11.9 100 Strip 3 04/30/2024 Active Nystatin 400686 UNIT/GM External Powder ([facility])Indications:C andidal skin infection APPLY TOPICALLY [...] as of this encounter (statuses as of 06/03/2024) Active Problems Problem Noted Date Diagnosed Date [...] NEURO DZ 09/08/2009 Overview: Per Diabetes Taxonomy. assisted current use of anticoagulant therapy 0 06/15/2005 [...] as of this encounter (statuses as of 06/03/2024) Resolved Problems Problem Noted Date Diagnosed Date Resolved Date assisted current use of ant icoagulant therapy 11/25/2020 [...] as of this encounter (statuses as of 06/03/2024) Immunizations Name Administration Dates Next Due COVID-19 [...] Progress Notes * Cammie Salinas RPh - 06/03/2024 7:42 AM EDT Pt discharged from [facility] yesterday. Was admitted due to UTI. No changes to regimen- pt to resume warfarin at usual dose. INR to be checked tomorrow. Cammie Salinas, PharmD, BCACP Clinical Pharmacist Medication Therapy Disease Management 06/03/2024, 12:22 PM documented in this encounter Plan of Treatment Upcoming Encounters Date Type Department Care Team (Late st Contact Info) Description 06/04/2024 9:50 AM EDT 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 [address] [place] [facility] [address] [place] [facility] [place] [address] 06/04/2024 10:20 AM EDT Office Visit [facility], [place] [address] [facility] [phone] Duong Looney MD [address] [place] [facility] [place] [address] 07/14/2024 11:50 AM EDT 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 [address] [facility] [address] [facility] [address] 07/29/2024 4:20 PM EDT Office Visit [facility] [address] [facility] [phone] Duong Looney MD [address] [address] 08/19/2024 1:30 PM EDT Office Visit Urology, [facility] [address] [facility] [place] [address] Jeremy Vital MD [address] [place] [address] 11/23/2024 12:20 PM EST Office Visit [facility] [address] [facility] [phone] Duong Looney MD [address] [place], [place] [phone] Health Maintenance Due Date Last Done Comments [...] as of this encounter Visit Diagnoses Diagnosis 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 management encounter- Primary Encounter for therapeutic drug monitoring Personal history of TIA (transient ischemic attack) Transient ischemic attack (TIA), and cerebral infarction without residual deficits documented in this encounter Advance Directives * No Code Status (Latest Code Status on File) Date Activated Date Inactivated Comments 10/18/2004 9:59 AM 10/18/2004 10:59 AM Care Teams Care Transitions Manager Relationship Specialty Start Date End Date Duong Looney MD [address] [place] [address] PCP - General 07/31/00 documented as of this encounter
--- OUTSIDE RECORDS SUMMARY | 2024-08-01 13:50 | External Medical Summary | Summary of Care ---
Author Name Unknown Organization [facility] Address [address] [place] [address] Phone [phone] Care Team Providers Care Senior Production Planner Name Role Phone Duong Looney MD Primary Care Provider [phone] Reason for Visit * Reason Onset Date Comments Test Results 05/28/2024 Encounter Details Date Type Department Care Team (Late st Contact Info) Description 05/28/2024 Telephone Urology [facility] Navarrete [address] [place] [address] Jeremy Vital MD [address] [place] [address] Test Results Allergies Active Allergy Reactions Criticality Noted Date Comments Adhesive Tape 03/11/2003 redness Latex 01/18/2005 rash Lisinopril Cough Low 03/18/2014 Penicillins 07/14/1999 swelling Prednisone 04/20/2005 Pt says it makes her "bleed into her intestines" documented as of this encounter (statuses as of 06/01/2024) Medications Medication Sig Dispensed Refills Start Date End Date Status Blood Glucose Monitoring Suppl ([employer]OUCH ULTRA 2) w/Device KITIndications:Type 2 diabetes mellitus with hemoglobin A1c goal of less than 8.0% ([facility]) Use as directed to test [...] diabetes mellitus with diabetic neuropathy, unspecified whether residential insulin use (HCC),Restless leg syndrome take 1 [...] hemoglobin A1c goal of less than 8.0% ([facility]) TEST once daily E11.9 100 Strip 3 04/30/2024 Active Nystatin 308294 UNIT/GM External Powder (Nyamyc)Indications:C andidal skin infection [...] DZ 09/08/2009 Overview: Per Diabetes Taxonomy. 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 Started bactrim late Saturday. She took patient to [facility] Saturday morning, patient was admitted, discharge planned [...] Description 06/03/2024 5:50 PM EDT 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 Pharmacy, [place] [address] [place] [address] [place], [facility] [address] [place] [address] 06/04/2024 10:20 AM EDT Office Visit [facility], [place] [address] [place] [phone] Duong Looney MD [address] [place] [facility] [address] 07/14/2024 11:50 AM EDT 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 Pharmacy, [place] [address] [place] [address] [place], [facility] [address] [place] [address] 07/29/2024 4:20 PM EDT Office Visit [facility], [place] [address] [place] [address] Duong Looney MD [address] [place] [facility] [address] 08/19/2024 1:30 PM EDT Office Visit Urology, [facility] [address] [facility] [place] [address] Jeremy Vital MD [address] [place] [address] 11/23/2024 12:20 PM EST Office Visit [facility], [place] [address] [place] [place] [address] Duong Looney MD [address] [facility], [place] [phone] Health Maintenance Due Date Last Done Comments [...] 9:59 AM 10/18/2004 10:59 AM Care Teams Senior Production Planner Relationship Specialty Start Date End Date Duong Looney MD [address] [place] [address] PCP - General 07/31/00 documented as of this encounter
--- OUTSIDE RECORDS SUMMARY | 2024-08-01 13:50 | External Medical Summary ---
Author Name Unknown Address Unknown Organization : Laboratory Report Ordering Provider Test Date Status LORA SMITH 06/04/2024 10:03:45 Final Therapeutic ranges for non-o perative patients:
Prophylaxsis/treatment of DVT: (Range:2.0-3.0)
Treatment of pulmonary embolism:(Range:2.0-3.0)
Prevention of systemic embolism from:
-tissue heart valves
-acute myocardial infarction
-valvular heart disease
-atrial fibrillation
(Range: 2.0-3.0)
Mechanical prosthetic valves: (Range: 2.5-3.5) Observation Date Value Abnormality Reference (Units ) Status INR in Capillary blood by Coagulation assay 06/04/2024 10:03:45 3.1 (INR) Final Performing Location
--- OUTSIDE RECORDS SUMMARY | 2024-08-01 13:50 | External Medical Summary | Summary of Care ---
Author Name Unknown Organization [facility] Address [address] [place] [address] Phone [phone] Care Team Providers Care Electric Motor Tester Name Role Phone Duong Looney MD Primary Care Provider [phone] Reason for Visit * Reason Onset Date Comments Advice 06/05/2024 Encounter Details Date Type Department Care Team (Late st Contact Info) Description 06/05/2024 Telephone [facility] [address] [place] [facility] [place] [address] Dunog Looney MD [address] [place] [address] Advice Allergies Active Allergy Reactions Criticality Noted Date Comments Adhesive Tape 03/11/2003 redness Latex 01/18/2005 rash Lisinopril Cough Low 03/18/2014 Penicillins 07/14/1999 swelling Prednisone 04/20/2005 Pt says it makes her "bleed into her intestines" documented as of this encounter (statuses as of 06/08/2024) Medications Medication Sig Dispensed Refills Start Date End Date Status Blood Glucose Monitoring Suppl (SokoTOUCH ULTRA 2) w/Device KITIndications:Type 2 diabetes mellitus with hemoglobin A1c goal of less than 8.0% ([facility]) Use as directed to test [...] diabetes mellitus with diabetic neuropathy, unspecified whether 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 Was seen yesterday for hospital discharge. See that at the bottom but not finding an order. Please call precious bria at [phone] once the fax is sent to [employer] so she can verify it to go pick it up. This is a new fax number to send the order to. Thank you documented in this encounter Plan of Treatment Upcoming Encounters Date Type Department Care Team (Late st Contact Info) Description 06/22/2024 1:20 PM EDT 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 Pharmacy, [place] [address] [place] [facility] [place] [facility] [address] [facility] [address] [place] [address] 07/14/2024 11:50 AM EDT 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 Pharmacy, [place] [address] [place] [address] [facility] [address] [place] [facility] [place] [facility] [address] 07/29/2024 4:20 PM EDT Office Visit Family Practice, [place] [address] [place] [phone] Duong Looney MD [address] [place] [address] 08/19/2024 1:30 PM EDT Office Visit Urology, [facility] [address] [facility] [place] [address] Jeremy Vital MD [address] [place] [address] 09/22/2024 3:00 PM EST Office Visit Cardiology, [facility] [address] [facility] [place] [address] Duong Paz PA-C [address] [facility] [place] [address] 11/23/2024 12:20 PM EST Office Visit [facility] [address] [place] [phone] Duong Looney MD [address] [place], [place] [phone] Health Maintenance Due Date Last Done Comments [...] AM 10/18/2004 10:59 AM Care Teams Electric Motor Tester Relationship Specialty Start Date End Date Duong Looney MD [address] [facility] [place] [address] PCP - General 07/31/00 documented as of this encounter
--- OUTSIDE RECORDS SUMMARY | 2024-08-01 13:50 | External Medical Summary | Summary of Care ---
Author Name Unknown Organization [facility] Address [address] [place] [address] Phone [phone] Care Team Providers Care Operator And Truck Driver Name Role Phone Duong Looney MD Primary Care Provider [phone] Reason for Visit * Reason Comments Dosage Adjustment In Person (Anticoag Cl inic) Encounter Details Date Type Department Care Team (Latest Contact Info) Description 06/04/2024 9:50 AM EDT 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 Pharmacy, [place] [address] [place] [address] [facility] [address] [place] [address] 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 management encounter*; Personal history of TIA [...] End Date Status Blood Glucose Monitoring Suppl (ImageShackTOUCH ULTRA 2) w/Device KITIndications:Type 2 diabetes mellitus with hemoglobin A1c goal of less than 8.0% ([facility]) Use as directed to test blood sugar [...] goal of less than 8.0% ([facility]) take 1 tablet by mouth every morning [...] goal of less than 8.0% ([facility]) TEST once daily E11.9 100 Strip 3 04/30/2024 Active Nystatin 463712 UNIT/GM External Powder (Hiamy)Indications:C andidal skin infection APPLY TOPICALLY TO AFFECTED [...] DZ 09/08/2009 Overview: Per Diabetes Taxonomy. 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 Medication Therapy Disease Management - 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 Patient: Keila Vital | : 1935 Subjective Patient-Reported Symptoms: Patient Findings Positives: Change in medications (bactrim BID today and tomorrow), Hospital admission ([facility] 05/31-06/02) Negatives: Signs/symptoms of thrombosis, Signs/symptoms of bleeding, Change in health, Change in alcohol use, Change in activity, Upcoming invasive procedure, Missed doses, Extra doses, Change in diet/appetite, Bruising Objective Current Warfarin Dose As of 06/04/2024 Warfarin maintenance plan: 5 mg (5 mg x 1) every day INR Result As of 06/04/2024 INR goal: 2.0-3.0 INR used for dosin.1 (06/04/2024) Assessment & Plan Warfarin Plan As of 06/04/2024 Full warfarin instructions: 06/05: Hold; Otherwise 5 mg every day Next INR check: 06/22/2024 Repeat PT/INR in 2 week(s) Weekly dose: not changed Additional Dosing Information: Description Takes in AM Cammie Salinas RPh Clinical Pharmacist 06/04/2024, 10:02 AM documented in this encounter Plan of Treatment Upcoming Encounters Date Type Department Care Team (Late st Contact Info) Description 06/22/2024 1:20 PM EDT 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 Pharmacy, [place] [address] [facility] [place] [address] [place], [facility] [address] [place] [facility] [place] [address] 07/14/2024 11:50 AM EDT 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 Pharmacy, [place] [address] [facility] [place] [address] [facility] [address] [facility] [place] [facility] [address] 07/29/2024 4:20 PM EDT Office Visit [facility], [place] [address] [facility] [place] [address] Duong Looney MD [address] [place], [place] [phone] 08/19/2024 1:30 PM EDT Office Visit Urology, [facility] [address] [facility] [place] [address] Jeremy Vital MD [address] [place] [address] 11/23/2024 12:20 PM EST Office Visit [place] [address] [facility] [place] [phone] Duong Looney MD [address] [place], [place] [phone] Health Maintenance Due Date Last Done Comments [...] Diagnosis Comments INR FINGERSTICK, POINT OF CARE TOREY 06/04/2024 10:03 AM EDT documented in this encounter Results * INR FINGERSTICK, POINT OF CARE (06/04/2024 10:03 AM EDT) Fingerstick INR 3.1 INR 10:07 AM EDT [facility] 06/04/2024 10:0 3 AM EDT 06/04/2024 10:07 AM EDT N[facility]ative [facility] - 06/04/2024 10:07 AM EDT Therapeutic ranges for non-operative patients: Prophylaxsis/treatment of DVT: (Range:2.0-3.0) Treatment of pulmonary embolism:(Range:2.0-3.0) Prevention of systemic embolism from: -tissue heart valves -acute myocardial infarction -valvular heart disease -atrial fibrillation (Range: 2.0-3.0) Mechanical prosthetic valves: (Range: 2.5-3.5) [facility] [place] [facility] POINT OF CARE TEST DOCKED DEVICE UNSOLICITED RESULTS NADIA PAULINO [address] [place] [address] documented in this encounter Visit Diagnoses Diagnosis 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 management encounter- Primary Encounter for therapeutic drug monitoring Personal history of TIA (transient ischemic attack) Transient ischemic attack (TIA), and cerebral infarction without residual deficits documented in this encounter Advance Directives * No Code Status (Latest Code Status on File) Date Activated Date Inactivated Comments 10/18/2004 9:59 AM 10/18/2004 10:59 AM Care Teams Operator And Truck Driver Relationship Specialty Start Date End Date Duong Looney MD [address] [place] [address] PCP - General 07/31/00 documented as of this encounter
--- OUTSIDE RECORDS SUMMARY | 2024-08-01 13:50 | External Medical Summary | Summary of Care ---
Author Name Unknown Organization [facility] Address [address] [place] [address] Phone [phone] Care Team Providers Care Mobile Game Engineer Name Role Phone Duong Looney MD Primary Care Provider Reason for Visit * Reason Onset Date Comments Advice 06/05/2024 Encounter Details Date Type Department Care Team (Late st Contact Info) Description 06/05/2024 Telephone [facility] [address] [place] [address] Duong Looney MD [address] [place] [address] Advice Allergies Active Allergy Reactions Criticality Noted Date Comments Adhesive Tape 03/11/2003 redness Latex 01/18/2005 rash Lisinopril Cough Low 03/18/2014 Penicillins 07/14/1999 swelling Prednisone 04/20/2005 Pt says it makes her "bleed into her intestines" documented as of this encounter (statuses as of 06/09/2024) Medications Medication Sig Dispensed Refills Start Date End Date Status Blood Glucose Monitoring Suppl (UrtheCastTOUCH ULTRA 2) w/Device KITIndications:Type 2 diabetes mellitus with hemoglobin A1c goal of less than 8.0% ([facility]) Use as directed to test [...] diabetes mellitus with diabetic neuropathy, unspecified whether supervisor 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s insulin use (HCC),Restless leg syndrome take 1 [...] E11.9 100 Strip 3 04/30/2024 Active Nystatin 898075 UNIT/GM External Powder (Nyamyc)Indications:C andidal skin infection [...] DZ 09/08/2009 Overview: Per Diabetes Taxonomy. 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 Was seen yesterday for hospital discharge. See that at the bottom but not finding an order. Please call precious fraser at [phone] once the fax is sent to [employer] so she can verify it to go pick it up. This is a new fax number to send the order to. Thank you documented in this encounter Plan of Treatment Upcoming Encounters Date Type Department Care Team (Late st Contact Info) Description 06/22/2024 1:20 PM EDT 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, [place] [address] [facility] [address] [facility] [address] [facility] [place] [address] 07/14/2024 11:50 AM EDT 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 Pharmacy, [place] [address] [facility] [place] [address] [facility] [address] [place] [address] 07/29/2024 4:20 PM EDT Office Visit [facility] [address] [place] [phone] Duong Looney MD [address] [place] [address] 08/19/2024 1:30 PM EDT Office Visit Urology, [facility] [address] [place] [address] Jeremy Vital MD [address] [place] [address] 09/22/2024 3:00 PM EST Office Visit Cardiology, [facility] [address] [place] [address] Duong Paz, PA-C [address] [facility] [place] [address] 11/23/2024 12:20 PM EST Office Visit [facility] [address] [place] [facility] [place] [phone] Duong Looney MD [address] [place], [place] [phone] Health Maintenance Due Date Last Done Comments [...] 9:59 AM 10/18/2004 10:59 AM Care Teams Mobile Game Engineer Relationship Specialty Start Date End Date Duong Looney MD [address] [place] [address] PCP - General 07/31/00 documented as of this encounter
--- NOTE | 2024-08-01 13:56 | Emergency Department Note ---
Impression & Plan Severe sepsis, Hypoxia, Abscess of chest wall ED Provider Note Name: VIV VITAL Age: 88 Sex: Female Arrives Via: Ambulance Informant: Patient, daughter ED Provider: Benito Romero MD Chief Complaint: Illness Impression: As per impressions above Medical Decision Makin-year-old female arrives for 1 week of worsening illness. This morning increasing fevers and chills. Patient had been confused throughout the morning as well. She did start Bactrim yesterday for an infection on her upper chest. By examination patient appears septic. She had blood cultures obtained. Lactic acid is elevated. Chest x-ray without evidence of pneumonia. Nidus of infection is likely abscess in chest wall. With that being case drainage indicated. Patient is anticoagulated however INR is in her therapeutic range and draining of infection is indicated. I&D revealed purulent severely malodorous fluid copious amounts expressed. Packing placed. Started on broad- spectrum antibiotics including Flagyl for anaerobic coverage. Gave 500 mL normal saline bolus for sepsis resuscitation. Patient has a history of CHF and I am concerned for fluid overload thus 30/kg normal saline bolus not given but rather 500 mL normal saline instead. Repeat evaluation by me shows improvement. Hospitalist consulted for further management. Sepsis repeat evaluation: 4 PM 08/01/24. Evaluation by me. Sepsis reevaluation was completed. She is awake answering questions with good blood pressure and not tachycardic. Triage/Nursing Notes reviewed by Me External Chart Review by me: I reviewed discharge summary from 06/02/2024 at which time she had a UTI and describes her history of CHF. Differential:Infection, dehydration, metabolic abnormality, hypo/hyperglycemia, electrolyte disturbance, anemia, hypoxia, cardiac sources, intracerebral event, toxicologic, neurologic, as well as other pathologies. Vital Signs: reviewed and remarkable for hypoxia Interventions: Normal saline bolus 500 mL IV, cefepime 2 g IV, Flagyl 500 mg IV, linezolid 600 mg IV Labs:ED labs Reviewed by me and remarkable for elevated lactic acid Imagin view chest x-ray shows some mild CHF findings no overt pulmonary edema or large effusions appreciated EKG:As per my interpretation. Indication sepsis. A-fib at 86 beats minute with a QTc of 428. There is no ischemia appreciated. Compared to EKG of 05/30/2024 no significant change. Cardiac/Tele Monitoring: Cardiac Monitoring: An Order was placed for continuous cardiac monitoring. The monitor shows a rate of 80 with a normal sinus rhythm. [facility] and bring in for further management. Plan: Disposition:Hospitalization. Condition: Good History of Present Illness: 88-year-old female arrives for evaluation of illness. Patient with 1 week of developing infection of the upper chest wall. Plan to see general surgeon to have it drained. She was darted on Bactrim yesterday. Today worsening confusion, cough, congestion, hypoxia, weakness. Daughter notes patient seems a bit more confused than typical. She is quite tremulous and had a fever this morning. She was given Tylenol 500 mg at 11 AM. Continued worsening arrives to the ER for further evaluation. Patient with no history of using Bactrim previously that she recalls. She does have a history of heart failure. Denies any increase in swelling of her legs. Past Medical History:See Below Home Medications:See Below Allergies:See Below Vitals:Blood Pressure: 136/86, Pulse 84, RR 28, T 37.0C, O2 88% on RA Physical Exam: GENERAL: Patient is unwell appearing and in mild distress. Tremulous/rigorous CHEST: upper chest midline swelling with surrounding erythema and fluctuance consistent with abscess. Pustule noted middle of abscess at skin. RESPIRATORY: No dyspnea. Clear to auscultation and equal bilaterally. CARDIOVASCULAR: Regular rate and rhythm.No murmur appreciated. GASTROINTESTINAL: Abdomen soft, non-tender, no peritonitis. EXTREMITIES: Normal motion all extremities, no cyanosis, no edema. NEUROLOGIC: Alert and oriented though a bit slow to respond. No focal neurologic deficits appreciated SKIN: Cellulitis upper chest surrounding abscess. Abrasion left forearm with surrounding erythema. PSYCH: Appropriate GCS: 15 ED Course: Times/Reassessments: Procedures: Incision and Drainage: Indication: Abscess Location: Central upper chest Size: 5 cm diameter Verbal consent was obtained from the patient & daughter after the risks and benefits were explained, including but not limited to bleeding, scarring, infection, pain, and bone/joint/nerve damage. At this time, the risks of the procedure are less than the risks of NOT performing the procedure. A time out was taken and the correct patient and site identified. The skin was prepped with betadine and a sterile field set. The wound was anesthetized with 3 ml of 1% lidocaine without epinephrine. The abscess cavity was entered with a number 11 blade and purulent malordorous material expressed. . The wound was explored for foreign bodies and none found. Debridement was not performed. Packing was placed and a sterile dressing applied. Detailed wound care instructions and signs and symptoms of worsening infection reviewed with the patient. There were no complications and the patient tolerated the procedure well. Benito Romero MD Past Med/Surg History Problem List Abscess of chest wall (Acute) Hypoxia (Acute) Severe sepsis (Acute) Acute on chronic hypoxic respiratory failure Cellulitis of chest wall Abscess of chest wall Aortic stenosis, mild Aspiration into airway History of pulmonary embolism Paroxysmal atrial fibrillation Dysphagia Food impaction of esophagus Respiratory failure Hypoxia (Acute) Acute GI bleeding (Acute) Supratherapeutic INR (Acute) Abscess of breast, right (Acute) Abscess DVT prophylaxis Coagulopathy Upper GI bleed Hyperlipidemia Hypertension History of DVT (deep vein thrombosis) History of TIA (transient ischemic attack) DM type 2 (diabetes mellitus, type 2) Medical History History of uterine cancer Diabetic neuropathy [facility] current use of anticoagulant COPD with asthma Surgical History History of cholecystectomy History of back surgery History of tubal ligation History of hysterectomy History of cataract surgery History of total left knee replacement History of total right knee replacement Family History Mother Heart disease Social History Smoking Status: Never smoker Tobacco Type: Cigarettes Hx Alcohol Use: No Hx Substance Use: No Preferred Language: Tajik Communication Ability: Effective Communication Ability Comment: hearing deficit Grey Percher Required: No Beliefs That Will Affect Care: None marital status: / Current Living Situation: Family Current Living Situation Comment: Lives with daughter current occupational status: retired Feels Safe at Home: Yes Safety Concerns: Feels Safe At This Time Assistive Devices: Denture - Upper, Denture - Lower, Glasses, Hearing Aid - Left, Oxygen - Continuous and Walker Allergies Allergies Allergy/AdvReac Type Severity Reaction Status Date / Time vancomycin Allergy Severe ANAPHYLAXIS Verified 05/30/24 15:17 adhesive Allergy Intermediate RED AND Verified 05/30/24 15:17 ITCHY SKIN latex Allergy Intermediate Rash Verified 05/30/24 15:17 Penicillins Allergy Intermediate SWELLING Verified 08/01/24 15:01 PER GMG lisinopril AdvReac Intermediate Cough Verified 05/30/24 15:17 prednisone AdvReac Intermediate INCREASED Verified 05/30/24 15:17 HER RECTAL BLEEDING Home Meds Home Medications Medication Instructions Recorded Confirmed acetaminophen 500 mg tablet 1,000 mg PO Q6H PRN Pain 06/06/23 08/01/24 (Tylenol Extra Strength) albuterol sulfate 90 mcg/actuation 2 puff inhalation Q4 PRN Shortness 06/06/23 08/01/24 aerosol inhaler Of Breath Or Wheezing atorvastatin 10 mg tablet 10 mg PO HS 06/06/23 08/01/24 gabapentin 300 mg capsule 300 mg PO UD 06/06/23 08/01/24 lorazepam 1 mg tablet 1 mg PO HS PRN ANXIETY/SLEEP 06/06/23 08/01/24 losartan 25 mg tablet 25 mg PO DAILY 06/06/23 08/01/24 metformin 500 mg tablet,extended 500 mg PO BIDM 06/06/23 08/01/24 release 24 hr solifenacin 5 mg tablet 5 mg PO QAM 06/06/23 08/01/24 vit C 250 mg-vit E 90 mg-zinc 40 1 tab PO BIDM 06/06/23 08/01/24 mg-copper 1 ma-btubzp-hxneat capsule (PreserVision AREDS-2) warfarin 5 mg tablet 5 mg PO SUTUWETHFRSA@1600 06/06/23 08/01/24 fluticasone fur. 200 mcg-umeclid 1 inh inhalation DAILY 05/30/24 08/01/24 62.5 mcg-vilant 25 mcg inhalat.powder (Trelegy Ellipta) loperamide 2 mg capsule 2 mg PO DIRECTED PRN Diarrhea 05/30/24 08/01/24 nystatin 100,000 unit/gram topical 1 applic topical BID PRN ABD FOLDS 05/30/24 08/01/24 powder (Nyamyc) NEEDED sulfamethoxazole 800 1 tab PO BID 05/30/24 08/01/24 mg-trimethoprim 160 mg tablet triamcinolone acetonide 0.1 % 1 applic topical BID PRN SKIN 05/30/24 08/01/24 topical cream IRRITATION NEEDED warfarin 2.5 mg tablet 2.5 mg PO MO@1600 08/01/24 08/01/24 Previous Rx's Medication Instructions Recorded furosemide 20 mg tablet 40 mg (2 x 20 mg) PO DAILY #0 tabs 06/02/24 Results & Data (ED) Vital Signs Vital Signs - 24 hr 08/01/24 14:00 08/01/24 14:03 08/01/24 14:06 Temperature 37 C Temperature Source Oral Pulse Rate 84 91 H 85 Pulse Rate from SpO2 Sensor 84 Respiratory Rate 28 H 24 Respiratory Effort / Characteristics Non-Labored Spontaneous Respiratory Depth Normal Respiratory Pattern Regular Blood Pressure 165/82 H Blood Pressure Mean 109 Pulse Oximetry 93 89 L Oxygen Delivery Method Room Air Oxygen Flow Rate Sepsis Recent Fever Within 48 Hours No Sepsis New/Unexplained Change in Mental Status Yes Sepsis Action Taken by Nursing Physician Notified Oxygen Flow Rate - Titration Pulse Oximetry Post Tiitration 08/01/24 14:09 08/01/24 14:11 08/01/24 14:18 Temperature Temperature Source Pulse Rate 82 Pulse Rate from SpO2 Sensor 85 Respiratory Rate 25 H Respiratory Effort / Characteristics Non-Labored Spontaneous Respiratory Depth Normal Respiratory Pattern Regular Blood Pressure Blood Pressure Mean Pulse Oximetry 89 L 94 Oxygen Delivery Method Room Air Room Air Oxygen Flow Rate Sepsis Recent Fever Within 48 Hours Sepsis New/Unexplained Change in Mental Status Sepsis Action Taken by Nursing Oxygen Flow Rate - Titration 2 Pulse Oximetry Post Tiitration 94 08/01/24 14:39 08/01/24 14:45 08/01/24 15:03 Temperature Temperature Source Pulse Rate 92 H 79 85 Pulse Rate from SpO2 Sensor 90 85 83 Respiratory Rate 26 H 27 H 25 H Respiratory Effort / Characteristics Respiratory Depth Respiratory Pattern Blood Pressure Blood Pressure Mean Pulse Oximetry 93 95 96 Oxygen Delivery Method Oxygen Flow Rate Sepsis Recent Fever Within 48 Hours Sepsis New/Unexplained Change in Mental Status Sepsis Action Taken by Nursing Oxygen Flow Rate - Titration Pulse Oximetry Post Tiitration 08/01/24 15:24 08/01/24 15:30 08/01/24 15:30 Temperature 37.2 C Temperature Source Oral Pulse Rate 76 Pulse Rate from SpO2 Sensor 78 Respiratory Rate 28 H Respiratory Effort / Characteristics Respiratory Depth Respiratory Pattern Blood Pressure 136/86 Blood Pressure Mean 102 Pulse Oximetry 95 96 Oxygen Delivery Method Nasal Cannula Nasal Cannula Oxygen Flow Rate 2 2 Sepsis Recent Fever Within 48 Hours Sepsis New/Unexplained Change in Mental Status Sepsis Action Taken by Nursing Oxygen Flow Rate - Titration Pulse Oximetry Post Tiitration Laboratory Data 08/03/24 05:54 08/03/24 05:54 Lab Results 08/01/24 08/01/24 08/01/24 Range/Units 13:57 14:00 15:46 WBC 6.56 (4.8-10.8) K/ul RBC 4.26 (4.20-5.40) M/uL Hgb 12.8 (12.0-16.0) g/dl Hct 39.6 (37.0-47.0) % MCV 93.0 (80.0-100.0) fL MCH 30.0 (25.0-34.0) pg MCHC 32.3 (32.0-36.0) g/dL RDW Std Deviation 47.8 H (36.4-46.3) fL RDW Coeff of Ata 14.1 (11.5-14.5) % Plt Count 102 L (130-400) K/uL MPV 10.5 (9.4-12.4) fL Immature Gran % (Auto) 0.3 % Neut % (Auto) 90.8 % Lymph % (Auto) 2.3 % Milam % (Auto) 5.8 % Eos % (Auto) 0.5 % Baso % (Auto) 0.3 % Neut # (Auto) 5.96 (1.40-6.50) K/uL Lymph # (Auto) 0.15 L (1.20-3.40) K/uL Milam # (Auto) 0.38 (0.11-0.59) K/uL Eos # (Auto) 0.03 (0.00-0.50) K/uL Baso # (Auto) 0.02 (0.00-0.20) K/uL Immature Gran # (Auto) 0.02 (0.01-0.20) K/uL PT 25.8 H (9.0-12.0) Seconds INR 2.6 H (0.9-1.1) Sodium 137 (136-145) mmol/L Potassium 4.3 (3.5-5.1) mmol/L Chloride 99 (98-107) mmol/L Carbon Dioxide 29 (21-32) mmol/L Anion Gap 9 (3-11) BUN 25 H (6-23) mg/dl Creatinine 1.23 H (0.6-1.2) mg/dl Est Cr Clr Drug Dosing 39.2 ml/min Est GFR ( Amer) 45.0 ml/min Est GFR (Non-Af Amer) 38.9 ml/min BUN/Creatinine Ratio 20.3 H (10-20) Glucose 149 H (70-99(Fasting)) mg/dl Lactate 2.7 H* 2.2 H* (0.4-2.0) mmol/L Calcium 8.9 (8.6-10.3) mg/dl Magnesium 1.3 L (1.7-2.4) mg/dl Total Bilirubin 0.5 (0.2-1.0) mg/dl Direct Bilirubin 0.1 (0-0.2) mg/dl AST 14 (13-39) U/L ALT 9 (7-52) U/L Alkaline Phosphatase 77 (34-104) U/L Troponin I High Sens 7.5 (0-14) pg/ml Total Protein 6.7 (6.0-8.3) gm/dl Albumin 3.8 (3.4-5.0) gm/dl Procalcitonin 0.04 (0-0.5) ng/ml SARS-CoV-2 (PCR) NEGATIVE (Negative) Influenza Type A (PCR) Negative (Neg) Influenza Type B (PCR) Negative (Neg) RSV (RT-PCR) Negative (Neg) Administered Medications Acetaminophen (Acetaminophen 325 Mg Tab) 650 mg PO Q4H PRN PRN Reason: Pain or Fever Stop: 08/31/24 20:02 Last Admin: 08/02/24 13:28 Dose: 650 mg Documented By: Admin: 08/01/24 22:59 Dose: 650 mg Documented By: ROBE Atorvastatin Calcium (Atorvastatin 10 Mg Tab) 10 mg PO HS [facility] Stop: 08/31/24 20:59 Last Admin: 08/02/24 19:38 Dose: 10 mg Documented By: Admin: 08/01/24 21:00 Dose: 10 mg Documented By: MARY Doxycycline Hyclate (Doxycycline Hyclate 100 Mg Cap) 100 mg PO BID [facility] Stop: 08/09/24 20:59 Last Admin: 08/02/24 19:37 Dose: 100 mg Documented By: ROBE Fluticasone Furoate (Fluticasone Furoate 200mcg 14 Puffs/Inhaler) 1 puffs INH DAILY [facility] Stop: 09/01/24 08:59 Last Admin: 08/02/24 08:22 Dose: 1 puffs Documented By: SUSAN Furosemide (Furosemide 40 Mg Tab) 40 mg PO DAILY [facility] Stop: 09/01/24 08:59 Last Admin: 08/02/24 08:20 Dose: 40 mg Documented By: SUSAN Gabapentin (Gabapentin 300 Mg Cap) 300 mg PO BID@0900,1400 [facility] Stop: 09/01/24 08:59 Last Admin: 08/02/24 15:03 Dose: 300 mg Documented By: Admin: 08/02/24 10:35 Dose: 300 mg Documented By: SUSAN Gabapentin (Gabapentin 300 Mg Cap) 600 mg PO HS [facility]A Stop: 08/31/24 20:59 Last Admin: 08/02/24 19:38 Dose: 600 mg Documented By: Admin: 08/01/24 21:01 Dose: 600 mg Documented By: MARY Cefepime HCl 2,000 mg/ Syringe 20 mls @ 5 mls/min IV Q12H MARIANELA; Protocol Stop: 08/09/24 02:59 Last Admin: 08/03/24 02:04 Dose: 5 mls/min Documented By: Admin: 08/02/24 15:04 Dose: 5 mls/min Documented By: Admin: 08/02/24 04:24 Dose: 5 mls/min Documented By: ROBE Metronidazole (Flagyl) 500 mg in 100 mls @ 100 mls/hr IV Q8H MARIANELA; Protocol Stop: 08/09/24 00:00 Last Infusion: 08/03/24 01:53 Dose: Infused Documented By: Admin: 08/03/24 00:46 Dose: 100 mls/hr Documented By: Infusion: 08/02/24 17:33 Dose: Infused Documented By: Admin: 08/02/24 16:18 Dose: 100 mls/hr Documented By: Infusion: 08/02/24 09:55 Dose: Infused Documented By: Admin: 08/02/24 08:20 Dose: 100 mls/hr Documented By: Infusion: 08/01/24 23:59 Dose: Infused Documented By: Admin: 08/01/24 22:59 Dose: 100 mls/hr Documented By: ROBE Insulin Aspart (Insulin Aspart Per Unit Charge) 0 units SC ACHS MARIANELA Stop: 08/31/24 20:59 Last Admin: 08/02/24 19:58 Dose: Not Given Documented By: Admin: 08/02/24 17:38 Dose: 7 units Documented By: SUSAN Co-signed By: ISABEL Admin: 08/02/24 13:26 Dose: 7 units Documented By: SUSAN Co-signed By: ISABEL Admin: 08/02/24 09:51 Dose: 4 units Documented By: SUSAN Co-signed By: ISABEL Admin: 08/01/24 21:17 Dose: Not Given Documented By: MARY Co-signed By: SHELLY Lorazepam (Lorazepam 1 Mg Tab) 1 mg PO HS PRN PRN Reason: ANXIETY/SLEEP Stop: 08/31/24 15:57 Last Admin: 08/02/24 19:37 Dose: 1 mg Documented By: Admin: 08/01/24 22:59 Dose: 1 mg Documented By: ROBE Losartan Potassium (Losartan Potassium 25 Mg Tab) 25 mg PO DAILY MARIANELA Stop: 09/01/24 08:59 Last Admin: 08/02/24 08:21 Dose: 25 mg Documented By: SUSAN Magnesium Chloride (Magnesium Chloride W/Calcium 64mg Delayed Rel Tab) 64 mg PO BID [facility]A Stop: 09/01/24 20:59 Last Admin: 08/02/24 19:37 Dose: 64 mg Documented By: ROBE Multivitamins/Minerals (Cerovite Adv Formula Tab) 1 tab PO DAILY MARIANELA Stop: 09/01/24 08:59 Last Admin: 08/02/24 08:20 Dose: 1 tab Documented By: SUSAN Oxybutynin Chloride (Oxybutynin Chloride Xl 5 Mg Tabcr) 5 mg PO QAM [facility]IANELA Stop: 09/01/24 08:59 Last Admin: 08/02/24 08:21 Dose: 5 mg Documented By: SUSAN Umeclidinium/Vilanterol (Umeclidinium/Vilanterol 62.5/25mcg 7 Puffs/Inhaler) 1 puffs INH DAILY [facility]ELA Stop: 09/01/24 08:59 Last Admin: 08/02/24 08:22 Dose: 1 puffs Documented By: SUSAN Warfarin Sodium (Warfarin Sod 5 Mg Tab) 5 mg PO SUTUWETHFRSA@1600 [facility] Stop: 09/01/24 15:59 Last Admin: 08/02/24 16:17 Dose: 5 mg Documented By: SUSAN Discontinued Medications Acetaminophen (Acetaminophen 325 Mg Tab) 650 mg PO NOW STA Stop: 08/01/24 13:56 Last Admin: 08/01/24 14:27 Dose: 650 mg Documented By: HUSSEIN Sodium Chloride (Nss) 500 mls @ 999 mls/hr IV .Q31M ONE Stop: 08/01/24 14:25 Last Infusion: 08/01/24 15:17 Dose: Infused Documented By: Admin: 08/01/24 14:31 Dose: 999 mls/hr Documented By: HUSSEIN Magnesium Sulfate/Dextrose (Magnesium Sulfate / D5w) 1 gm in 100 mls @ 100 mls/hr IV NOW STA Stop: 08/01/24 15:56 Last Infusion: 08/01/24 16:25 Dose: Infused Documented By: Admin: 08/01/24 15:19 Dose: 100 mls/hr Documented By: SHELLY Cefepime HCl (Maxipime) 2,000 mg in 20 mls @ 5 mls/min IV NOW STA; Protocol Stop: 08/01/24 15:01 Last Admin: 08/01/24 15:19 Dose: 5 mls/min Documented By: SHELLY Linezolid (Zyvox) 600 mg in 300 mls @ 300 mls/hr IV NOW STA Stop: 08/01/24 15:57 Last Infusion: 08/01/24 18:43 Dose: Infused Documented By: Admin: 08/01/24 16:18 Dose: 300 mls/hr Documented By: SHELLY Metronidazole (Flagyl) 500 mg in 100 mls @ 100 mls/hr IV NOW STA; Protocol Stop: 08/01/24 15:57 Last Infusion: 08/01/24 16:42 Dose: Infused Documented By: Admin: 08/01/24 15:19 Dose: 100 mls/hr Documented By: SHELLY Linezolid (Zyvox) 600 mg in 300 mls @ 300 mls/hr IV Q12H [facility] Stop: 08/09/24 04:59 Last Infusion: 08/02/24 06:02 Dose: Infused Documented By: Admin: 08/02/24 04:24 Dose: 300 mls/hr Documented By: ROBE Sodium Chloride (Nss) 1,000 mls @ 80 mls/hr IV .[id number] MARIANELA Stop: 08/31/24 23:44 Last Infusion: 08/02/24 12:43 Dose: Infused Documented By: Admin: 08/02/24 11:42 Dose: Not Given Documented By: Admin: 08/01/24 23:57 Dose: 80 mls/hr Documented By: ROBE Magnesium Sulfate/Dextrose (Magnesium Sulfate / D5w) 1 gm in 100 mls @ 50 mls/hr IV ONE ONE Stop: 08/02/24 09:39 Last Infusion: 08/02/24 10:51 Dose: Infused Documented By: Admin: 08/02/24 08:23 Dose: 50 mls/hr Documented By: SUSAN Lidocaine HCl (Lidocaine 1% Local 20 Ml Vial) 5 ml INJ NOW ONE Stop: 08/01/24 13:54 Last Admin: 08/01/24 14:31 Dose: 5 ml Documented By: JOHANN Imaging Data Radiologist's Impression: Chest X-Ray 08/01/24 13:53 XR chest 1V portable HISTORY: 88 years-old Female Sepsis COMPARISON: 05/30/2024 TECHNIQUE: AP view the chest FINDINGS: Cardiac silhouette is enlarged. Pulmonary vascular congestion with interstitial coarsening. Mild bibasilar densities. No pneumothorax or pleural effusion. Degenerative changes of the shoulders and spine. Right proximal humeral ORIF hardware. IMPRESSION: 1. Cardiomegaly with pulmonary vascular congestion. 2. Mild bibasilar densities favor atelectasis. A mild nonspecific pneumonitis considered less likely. ACT 112: Negative or not required by law. The above report was generated using voice recognition software. It may contain grammatical, syntax or spelling errors. Electronically signed by: Ben Acevedo M.D. 08/01/2024 2:47 PM Discharge Plan Visit Data Chief Complaint: Shortness of Breath/Dyspnea Stated Complaint: SOB ED Provider: Benito Romero Discharge Problem: Severe sepsis, Hypoxia, Abscess of chest wall Patient Disposition: Admitted As Inpatient Discharge Instructions Interventions: ED Discharge Assessment Last Done: 08/01/24 20:04
[2024-08-01 14:14] LABS: Hematocrit (blood only) 39.6 % (37.0-47.0); Hemoglobin 12.8 g/dl (12.0-16.0); Mean Corpuscular Hgb Conc 32.3 g/dL (32.0-36.0); Mean Platelet Volume 10.5 fL (9.4-12.4); Platelet Count 102 K/uL (130-400); RDW Coefficient of Variation 14.1 % (11.5-14.5); RDW Standard Deviation 47.8 fL (36.4-46.3); Red Blood Count 4.26 M/uL (4.20-5.40); White Blood Count 6.56 K/ul (4.8-10.8)
[2024-08-01] MEDS: ACETAMINOPHEN 325 MG TAB PO STA (14:27)
[2024-08-01 14:28] LABS: Albumin Level 3.8 gm/dl (3.4-5.0); BUN Creatinine Ratio 20.3 (10-20); Basophils # (auto) 0.02 K/uL (0.00-0.20); Basophils % (auto) 0.3 %; Bilirubin Direct 0.1 mg/dl (0-0.2); Bilirubin,Total 0.5 mg/dl (0.2-1.0); Calcium 8.9 mg/dl (8.6-10.3); Creatinine Clr Calc Pharmacy 39.2 ml/min; Eosinophils # (auto) 0.03 K/uL (0.00-0.50); Eosinophils % (auto) 0.5 %; Est GFR (Non-African American) 38.9 ml/min; Immature Granulocytes # (auto) 0.02 K/uL (0.01-0.20); Immature Granulocytes % (auto) 0.3 %; Lymphocytes # (auto) 0.15 K/uL (1.20-3.40); Lymphocytes % (auto) 2.3 %; Magnesium 1.3 mg/dl (1.7-2.4); Monocytes # (auto) 0.38 K/uL (0.11-0.59); Monocytes % (auto) 5.8 %; Neutrophils # (auto) 5.96 K/uL (1.40-6.50); Neutrophils % (auto) 90.8 %; Potassium 4.3 mmol/L (3.5-5.1); Total Protein 6.7 gm/dl (6.0-8.3)
[2024-08-01] MEDS: LIDOCAINE 1% LOCAL 20 ML VIAL INJ ONE (14:31)
[2024-08-01] MEDS: SODIUM CHLORIDE 0.9% 500 ML IV ONE (14:31)
[2024-08-01 14:34] LABS: Troponin I High Sensitivity 7.5 pg/ml (0-14)
[2024-08-01 14:43] LABS: INR 2.6 (0.9-1.1); Prothrombin Time 25.8 Seconds (9.0-12.0)
--- NOTE | 2024-08-01 14:49 | XRay Report ---
XR chest 1V portable HISTORY: 88 years-old Female Sepsis COMPARISON: 05/30/2024 TECHNIQUE: AP view the chest FINDINGS: Cardiac silhouette is enlarged. Pulmonary vascular congestion with interstitial coarsening. Mild biba silar densities. No pneumothorax or pleural effusion. Degenerative changes of the shoulders and spine . Right proximal humeral ORIF hardware. IMPRESSION: 1. Cardiomegaly with pulmonary vascular congestion. 2. Mild bibasilar densities favor atelectasis. A mild nonspecific pneumonitis considered less likely. ACT 112: Negative or not required by law. The above report was generated using voice recognition software. It may contain grammatical, syntax o r spelling errors. Electronically signed by: Ben Acevedo M.D. 08/01/2024 2:47 PM
[2024-08-01 15:02] LABS: Influenza A virus by PCR Negative (Neg); Influenza B virus by PCR Negative (Neg); RSV by PCR Negative (Neg); SARS CoV2 RNA(COVID-19) Ceph NEGATIVE (Negative)
[2024-08-01] MEDS: MAGNESIUM SULFATE / D5W 1 GM/100 ML BAG IV STA (15:19)
[2024-08-01] MEDS: CEFEPIME 2,000 MG/20 ML VIAL IV STA (15:19)
[2024-08-01] MEDS: metroNIDAZOLE 500 MG/100 ML BAG IV STA (15:19)
--- NOTE | 2024-08-01 15:43 | History & Physical Report ---
Date of Service August 01, 2024 Assessment & Plan (1) Abscess of chest wall: (2) Cellulitis of chest wall: (3) Acute on chronic hypoxic respiratory failure: (4) Aspiration into airway: (5) Paroxysmal atrial fibrillation: (6) DM type 2 (diabetes mellitus, type 2): (7) COPD with asthma: (8) Hypertension: (9) History of TIA (transient ischemic attack): (10) Hyperlipidemia: Plan This is an 88-year-old female with PMH of type 2 diabetes, hyperlipidemia with statin intolerance, COPD, chronic hypoxic resp failure on 2L NC O2 with exertion and HS, atrial fibrillation on Coumadin, hypertension, history of TIA, benign essential tremor, history of uterine cancer and other medical problems listed below who presents from home with infection on chest x 1 week. 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 Mild bibasilar densities favor atelectasis. A mild nonspecific pneumonitis considered less likely Most recent echo from 2023 with preserved EF 60-65%, mild aortic stenosis Has been compliant with lasix 40mg daily Received 500 ml NSS in ED, Cr at upper limit of normal - will hold off on add'l diuretics until CT results Possible aspiration pneumonitis Describes aspiration episode earlier this week when taking pills Await CT chest Continue empiric abx as above Paroxysmal A fib Rate WNL, not on rate/rhythm control Continue coumadin for anticoagulation - INR 2.6 today, monitor DM II A1c 7.2 in May 2024 Hold home agents SSI while in-patient BSG AC HS HTN Normotensive, continue losartan Hypomagnesemia Initial Mg 1.3, replaced Monitor CKD III Cr 1.23 today (baseline ~1-1.1) Continue to monitor DVT Ppx: coumadin Code status: DNR/DNI PCP: Rozick Dispo: Admitted to [facility] tele Patient seen in collaboration with Dr. Torres. Please see addendum. History of Present Illness Chief Complaint: chest wall infection Primary Care Provider: Duong Looney MD This is an 88-year-old female with PMH of type 2 diabetes, hyperlipidemia with statin intolerance, COPD, chronic hypoxic resp failure on 2L NC O2 with exertion and HS, atrial fibrillation on Coumadin, hypertension, history of TIA, benign essential tremor, history of uterine cancer and other medical problems listed below who presents from home with infection on chest x 1 week. Was seen by PCP on 07/29 noting a cyst on her anterior chest wall that has been painful. Had an appt with gen surg for excision yesterday that was canceled and rescheduled for next week. Was prescribed Bactrim by PCP earlier this week and patient has taken 2 doses so far. History of multiple seborrheic keratotic lesions on face per PCP note treated with liquid nitrogen. When patient visited daughter earlier today, she had chills and a low grade fever of 99.4 F. Took 500mg tylenol around 11AM. Also notes feeling generally weaker and wore her O2 even at rest. Was brought to ED for further evaluation. Afebrile since arrival, no headache, lightheadedness, CP, SOB, N/V, abd pain, dysuria, diarrhea or constipation. Denies notable weight gain or BLE edema. No recent cough, congestion or URI. Did have difficulty taking her gabapentin a few days ago and thinks she aspirated. Uses a walker for ambulation and lives with daughter. Allergies Allergy/AdvReac Type Severity Reaction Status Date / Time vancomycin Allergy Severe ANAPHYLAXIS Verified 05/30/24 15:17 adhesive Allergy Intermediate RED AND Verified 05/30/24 15:17 ITCHY SKIN latex Allergy Intermediate Rash Verified 05/30/24 15:17 Penicillins Allergy Intermediate SWELLING Verified 08/01/24 15:01 PER [facility] lisinopril AdvReac Intermediate Cough Verified 05/30/24 15:17 prednisone AdvReac Intermediate INCREASED Verified 05/30/24 15:17 HER RECTAL BLEEDING Home Medications Medication Instructions Recorded Confirmed Type acetaminophen 500 mg tablet 1,000 mg PO Q6H PRN Pain 06/06/23 08/01/24 History (Tylenol Extra Strength) albuterol sulfate 90 mcg/actuation 2 puff inhalation Q4 PRN Shortness 06/06/23 08/01/24 History aerosol inhaler Of Breath Or Wheezing atorvastatin 10 mg tablet 10 mg PO HS 06/06/23 08/01/24 History gabapentin 300 mg capsule 300 mg PO UD 06/06/23 08/01/24 History lorazepam 1 mg tablet 1 mg PO HS PRN ANXIETY/SLEEP 06/06/23 08/01/24 History losartan 25 mg tablet 25 mg PO DAILY 06/06/23 08/01/24 History metformin 500 mg tablet,extended 500 mg PO BIDM 06/06/23 08/01/24 History release 24 hr solifenacin 5 mg tablet 5 mg PO QAM 06/06/23 08/01/24 History vit C 250 mg-vit E 90 mg-zinc 40 1 tab PO BIDM 06/06/23 08/01/24 History mg-copper 1 [id number] capsule (PreserVision AREDS-2) warfarin 5 mg tablet 5 mg PO SUTUWETHFRSA@1600 06/06/23 08/01/24 History fluticasone fur. 200 mcg-umeclid 1 inh inhalation DAILY 05/30/24 08/01/24 History 62.5 mcg-vilant 25 mcg inhalat.powder (Trelegy Ellipta) loperamide 2 mg capsule 2 mg PO DIRECTED PRN Diarrhea 05/30/24 08/01/24 History nystatin 100,000 unit/gram topical 1 applic topical BID PRN ABD FOLDS 05/30/24 08/01/24 History powder (Nyamyc) NEEDED sulfamethoxazole 800 1 tab PO BID 05/30/24 08/01/24 History mg-trimethoprim 160 mg tablet triamcinolone acetonide 0.1 % 1 applic topical BID PRN SKIN 05/30/24 08/01/24 History topical cream IRRITATION NEEDED furosemide 20 mg tablet 40 mg (2 x 20 mg) PO DAILY #0 tabs 06/02/24 08/01/24 Rx warfarin 2.5 mg tablet 2.5 mg PO MO@1600 08/01/24 08/01/24 History Past Med/Surg History Problem List Abscess of chest wall (Acute) Hypoxia (Acute) Severe sepsis (Acute) Acute on chronic hypoxic respiratory failure Cellulitis of chest wall Abscess of chest wall Aortic stenosis, mild Aspiration into airway History of pulmonary embolism Paroxysmal atrial fibrillation Dysphagia Food impaction of esophagus Respiratory failure Hypoxia (Acute) Acute GI bleeding (Acute) Supratherapeutic INR (Acute) Abscess of breast, right (Acute) Abscess DVT prophylaxis Coagulopathy Upper GI bleed Hyperlipidemia Hypertension History of DVT (deep vein thrombosis) History of TIA (transient ischemic attack) DM type 2 (diabetes mellitus, type 2) Medical History History of uterine cancer Diabetic neuropathy [facility] current use of anticoagulant COPD with asthma Surgical History History of cholecystectomy History of back surgery History of tubal ligation History of hysterectomy History of cataract surgery History of total left knee replacement History of total right knee replacement Family History Mother Heart disease Social History Smoking Status: Never smoker Tobacco Type: Cigarettes Hx Alcohol Use: No Hx Substance Use: No Preferred Language: Bulgarian Communication Ability: Effective Communication Ability Comment: hearing deficit 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 Physical Exam Physical Exam: General Appearance: WD/WN, vitals as above, NAD, sitting up in bed, pleasant, slight tachypnea noted Head: normocephalic, atraumatic Eyes: normal inspection, PERRL, conjunctivae normal, anicteric sclerae ENT: external ear and nose normal, oropharynx normal Neck: normal visual inspection, trachea midline, no thyromegaly Respiratory: decreased breath sounds bilaterally. No accessory muscle use Cardiovascular: regular rate, rhythm, normal peripheral pulses, trace BLE edema Chest: Raised lesion s/p I&D with packing, TTP with surrounding erythema and warmth Abdomen/GI: normal bowel sounds, soft, nontender, no hepatosplenomegaly Extremities/Musculoskeletal: no cyanosis or clubbing, extremities motor strength 5/5 Neurologic: PERRL, EOMI, accommodation nl, no face palsy, no dysarthria, CN's II-XI intact bilaterally and moves all extremities Psychiatric: A+Ox3, euthymic affect Skin: no rashes, normal color, warm/dry. + L arm with abrasion and surrounding erythema Results & Data Results & Data Vital Signs (Past 12 Hours) Vital Signs Temp Pulse Resp BP Pulse Ox O2 Del Method O2 Flow Rate 08/01/24 15:30 37.2 C 08/01/24 15:30 96 Nasal Cannula 2 08/01/24 15:24 76 28 H 136/86 95 Nasal Cannula 2 08/01/24 15:03 85 25 H 96 08/01/24 14:45 79 27 H 95 08/01/24 14:39 92 H 26 H 93 08/01/24 14:18 82 25 H 94 08/01/24 14:11 89 L Room Air 08/01/24 14:09 Room Air 08/01/24 14:06 37 C 85 24 165/82 H 89 L Room Air 08/01/24 14:03 91 H 28 H 93 08/01/24 14:00 84 Laboratory Results Short CBC 08/01/24 Range/Units 13:57 WBC 6.56 (4.8-10.8) K/ul Hgb 12.8 (12.0-16.0) g/dl Hct 39.6 (37.0-47.0) % Plt Count 102 L (130-400) K/uL BMP 08/01/24 13:57 Sodium 137 Potassium 4.3 Chloride 99 Carbon Dioxide 29 BUN 25 H Creatinine 1.23 H Glucose 149 H Calcium 8.9 Liver Function 08/01/24 Range/Units 13:57 Total Bilirubin 0.5 (0.2-1.0) mg/dl Direct Bilirubin 0.1 (0-0.2) mg/dl AST 14 (13-39) U/L ALT 9 (7-52) U/L Alkaline Phosphatase 77 (34-104) U/L Albumin 3.8 (3.4-5.0) gm/dl Diagnostic Findings Chest X-Ray 08/01/24 13:53 XR chest 1V portable HISTORY: 88 years-old Female Sepsis COMPARISON: 05/30/2024 TECHNIQUE: AP view the chest FINDINGS: Cardiac silhouette is enlarged. Pulmonary vascular congestion with interstitial coarsening. Mild bibasilar densities. No pneumothorax or pleural effusion. Degenerative changes of the shoulders and spine. Right proximal humeral ORIF hardware. IMPRESSION: 1. Cardiomegaly with pulmonary vascular congestion. 2. Mild bibasilar densities favor atelectasis. A mild nonspecific pneumonitis considered less likely. ACT 112: Negative or not required by law. The above report was generated using voice recognition software. It may contain grammatical, syntax or spelling errors. Electronically signed by: Ben Acevedo M.D. 08/01/2024 2:47 PM Supervising Physician Co-Signing Physician Notes Pt was seen and examined by myself, Geovanna Torres MD on the day of service. Care was coordinated with Marylin Coon PA-C. 88-year-old female presenting with chest wall cellulitis in the setting of a possible infected sebaceous cyst. On exam patient alert, pleasant some mild hearing loss. Chest wall examined post incision and drainage with noted packing and some erythema in upper middle chest. Noted lower extremity swelling lactate elevated at 2.7 on admission, received a 500 mL fluid bag in the emergency room, repeat lactate of 2.2 still slightly elevated. Will hold home diuretic, another 500 mL of fluid given. Repeat lactate. Will treat empirically with cefepime, linezolid and Flagyl given allergies to vancomycin and penicillin. status post incision and drainage by ED provider. Follow cultures from I&D General surgery on board, appreciate further recs. Otherwise as above. I spent a total [email or web address] coordinating, documenting, and providing care for this patient excluding time spent in the performance of separately billed services
[2024-08-01] MEDS ORDERED: LOPERAMIDE HCL 2 MG CAP PO PRN (15:58)
[2024-08-01] MEDS ORDERED: NYSTATIN POWDER 15GM BTL EXT PRN (15:58)
[2024-08-01] MEDS ORDERED: ALBUTEROL HFA 8 GM INHALER INH PRN (15:58)
[2024-08-01] MEDS: LINEZOLID 600 MG/300 ML BAG IV STA (16:18)
[2024-08-01] MEDS ORDERED: GLUCOSE 40% GEL 15 GM TUBE PO PRN (17:08)
[2024-08-01] MEDS ORDERED: CARBOHYDRATES FOR HYPOGLYCEMIA PO PRN (17:08)
[2024-08-01] MEDS ORDERED: GLUCAGON FOR INJ 1 MG VIAL SQ PRN (17:08)
[2024-08-01] MEDS ORDERED: DEXTROSE 50% 50 ML SYRINGE IV PRN (17:08)
[2024-08-01] MEDS ORDERED: GLUCOSE 10 TAB/TUBE PO PRN (17:08)
[2024-08-01 19:08] LABS: Appearance Urine Clear (Clear); Bilirubin Urine Negative (Negative); Blood Urine Negative (Negative); Color Urine Yellow; Glucose Urine UA Negative (Negative); Ketones Urine Negative (Negative); Leukocyte Esterase Urine Negative (Negative); Nitrite Urine Negative (Negative); Protein Urine Negative (Negative); Specific Gravity Urine 1.017 (1.000-1.030); Urobilinogen Urine Negative (Negative)
--- NOTE | 2024-08-01 19:29 | CT Scan Report ---
CT chest diagnostic wo con CT DOSE: 962.42 mGy.cm CLINICAL HISTORY: 88 years-old Female with hypoxia, chf, asp pna. Acute hypoxia TECHNIQUE: Multiaxial CT images of the chest were performed without contrast. A dose lowering techni que was utilized adhering to the principles of ALARA. COMPARISON: 09/17/2021 FINDINGS: There are several subcentimeter hypodense thyroid nodules. Cardiomegaly with extensive franny nary artery calcifications. Atherosclerosis of the aorta without aneurysm. Unchanged mediastinal lymp hadenopathy with pretracheal lymph nodes measuring up to 1.2 cm. Trace pleural effusions. Mild intralobular septal thickening with subsegmental bibasilar atelectasis. Respiratory motion artifact limits evaluation of the lung bases. Central airways appear patent. No acute upper abdominal abnormality. Right proximal humeral ORIF hardware. There is air and debris f illed focus in the midline upper chest image 96 series 4 measuring 1.9 cm. Degenerative changes of th e spine and shoulders. IMPRESSION: 1. Limited exam secondary to respiratory motion artifact. 2. Cardiomegaly with mild interstitial pulmonary edema and trace pleural effusions. 3. Mild nonspecific mediastinal lymphadenopathy. 4. Small superficial subcutaneous wound within the midline upper chest, possibly a sebaceous cyst ext ending to the skin surface. ACT 112: Negative or not required by law. Electronically signed by: Ben Acevedo M.D. 08/01/2024 7:27 PM
[2024-08-01] MEDS ORDERED: TRIAMCINOLONE ACET 0.1% CR 15 GM TUBE TOP PRN (20:03)
[2024-08-01] MEDS ORDERED: POLYETHYLENE (MIRALAX) 17 GM PACK PO PRN (20:03)
[2024-08-01] MEDS ORDERED: ONDANSETRON INJ 2 MG/ML 2 ML VIAL IV PRN (20:03)
[2024-08-01] MEDS: ATORVASTATIN 10 MG TAB PO SCH (21:00)
[2024-08-01] MEDS: GABAPENTIN 300 MG CAP PO SCH (21:01)
[2024-08-01] MEDS: INSULIN ASPART PER UNIT CHARGE SC SCH (21:17)
--- NOTE | 2024-08-01 22:17 | Surgery Consultation ---
Date of Consultation August 01, 2024 Assessment & Plan (1) Abscess of chest wall: (2) Cellulitis of chest wall: Plan 88-year-old woman with abscess, status post incision and drainage on the chest wall. She is doing well. She is admitted to the hospital service. Continue IV antibiotics for now. She will need to have the packing changed once daily. She may be discharged home from the surgical perspective in the morning if okay with the hospitalists. She will need to follow-up in clinic later on in the week. History of Present Illness Reason for Consultation: Anterior chest wall abscess Requesting Physician: Benito Romero MD Attending Physician: Geovanna Torres MD History of Present Illness 88-year-old woman presents to the emergency department with cellulitis and pain on her anterior chest wall near her sternal notch. She states she had a cyst in this location but yesterday became incredibly painful and red. She denies fevers But did have chills. The abscess was incised and drained by the emergency room physician. Currently she is resting comfortably. She still has some chills. Allergies Allergy/AdvReac Type Severity Reaction Status Date / Time vancomycin Allergy Severe ANAPHYLAXIS Verified 05/30/24 15:17 adhesive Allergy Intermediate RED AND Verified 05/30/24 15:17 ITCHY SKIN latex Allergy Intermediate Rash Verified 05/30/24 15:17 Penicillins Allergy Intermediate SWELLING Verified 08/01/24 15:01 PER GMG lisinopril AdvReac Intermediate Cough Verified 05/30/24 15:17 prednisone AdvReac Intermediate INCREASED Verified 05/30/24 15:17 HER RECTAL BLEEDING Home Medications Medication Instructions Recorded Confirmed Type acetaminophen 500 mg tablet 1,000 mg PO Q6H PRN Pain 06/06/23 08/01/24 History (Tylenol Extra Strength) albuterol sulfate 90 mcg/actuation 2 puff inhalation Q4 PRN Shortness 06/06/23 08/01/24 History aerosol inhaler Of Breath Or Wheezing atorvastatin 10 mg tablet 10 mg PO HS 06/06/23 08/01/24 History gabapentin 300 mg capsule 300 mg PO UD 06/06/23 08/01/24 History lorazepam 1 mg tablet 1 mg PO HS PRN ANXIETY/SLEEP 06/06/23 08/01/24 History losartan 25 mg tablet 25 mg PO DAILY 06/06/23 08/01/24 History metformin 500 mg tablet,extended 500 mg PO BIDM 06/06/23 08/01/24 History release 24 hr solifenacin 5 mg tablet 5 mg PO QAM 06/06/23 08/01/24 History vit C 250 mg-vit E 90 mg-zinc 40 1 tab PO BIDM 06/06/23 08/01/24 History mg-copper 1 [id number] capsule (PreserVision AREDS-2) warfarin 5 mg tablet 5 mg PO SUTUWETHFRSA@1600 06/06/23 08/01/24 History fluticasone fur. 200 mcg-umeclid 1 inh inhalation DAILY 05/30/24 08/01/24 History 62.5 mcg-vilant 25 mcg inhalat.powder (Trelegy Ellipta) loperamide 2 mg capsule 2 mg PO DIRECTED PRN Diarrhea 05/30/24 08/01/24 History nystatin 100,000 unit/gram topical 1 applic topical BID PRN ABD FOLDS 05/30/24 08/01/24 History powder (Nyamyc) NEEDED sulfamethoxazole 800 1 tab PO BID 05/30/24 08/01/24 History mg-trimethoprim 160 mg tablet triamcinolone acetonide 0.1 % 1 applic topical BID PRN SKIN 05/30/24 08/01/24 History topical cream IRRITATION NEEDED furosemide 20 mg tablet 40 mg (2 x 20 mg) PO DAILY #0 tabs 06/02/24 08/01/24 Rx warfarin 2.5 mg tablet 2.5 mg PO MO@1600 08/01/24 08/01/24 History Patient History Medical History History of uterine cancer Diabetic neuropathy long-term current use of anticoagulant COPD with asthma Surgical History History of cholecystectomy History of back surgery History of tubal ligation History of hysterectomy History of cataract surgery History of total left knee replacement History of total right knee replacement Family History Mother Heart disease Social History Smoking Status: Never smoker Tobacco Type: Cigarettes Hx Alcohol Use: No Hx Substance Use: No Preferred Language: [place] Communication Ability: Effective Communication Ability Comment: hearing deficit Air Conditioning Service Technician Required: No Beliefs That Will Affect Care: None marital status: / Current Living Situation: Family Current Living Situation Comment: Lives with daughter current occupational status: retired Feels Safe at Home: Yes Assistive Devices: Lift Chair, Walker and Other Review of Systems Review of Systems: All systems reviewed & are unremarkable except as noted in HPI & below Physical Exam Constitutional: WD/WN, vitals as above Eyes: PERRL, conjunctivae normal, anicteric sclerae Neck: trachea midline, no thyromegaly Respiratory: normal respiratory effort; no respiratory distress and no labored breathing Cardiovascular: Rate/Rhythm: regular rate and regular rhythm Chest (Breasts): Additional Comments: 8 cm area of erythema, central opening I&D site with quarter inch packing. Minimal tenderness to palpation Gastrointestinal (Abdomen): Inspection/Auscultation: abdomen normal to inspection; abdomen not distended Percussion/Palpation: abdomen soft; abdomen nontender Skin: no rashes, warm and dry Psychiatric: A+Ox3, euthymic affect Results & Data Vital Signs (Past 12 Hours) Vital Signs Temp Pulse Resp BP Pulse Ox Pulse Ox O2 Del Method 08/01/24 21:15 92 08/01/24 21:00 87 22 172/82 H 94 08/01/24 20:45 87 28 H 94 08/01/24 20:33 90 22 136/93 95 08/01/24 20:00 85 20 165/84 H 95 08/01/24 19:42 80 19 146/62 H 96 08/01/24 19:31 77 20 137/68 98 Nasal Cannula 08/01/24 19:03 75 21 149/73 H 96 Nasal Cannula 08/01/24 18:54 71 23 125/95 97 Nasal Cannula 08/01/24 18:30 127/74 08/01/24 18:28 84 08/01/24 18:27 77 18 97 Nasal Cannula 08/01/24 18:15 66 30 H 95 08/01/24 17:31 165/84 H 08/01/24 17:30 78 26 H 96 08/01/24 17:21 88 27 H 95 08/01/24 17:15 157/75 H 08/01/24 17:09 71 25 H 97 08/01/24 17:06 72 25 H 97 08/01/24 16:45 87 26 H 96 08/01/24 16:45 155/71 H 08/01/24 16:30 146/64 H 08/01/24 16:30 146/64 H 08/01/24 16:21 82 20 95 08/01/24 16:15 137/98 08/01/24 16:03 84 25 H 94 08/01/24 16:00 141/63 H 08/01/24 16:00 141/63 H 08/01/24 15:54 81 33 H 94 08/01/24 15:45 133/67 08/01/24 15:45 133/67 08/01/24 15:39 79 27 H 94 08/01/24 15:30 136/68 08/01/24 15:30 37.2 C 08/01/24 15:30 96 Nasal Cannula 08/01/24 15:24 76 28 H 136/86 95 Nasal Cannula 08/01/24 15:03 85 25 H 96 08/01/24 14:45 79 27 H 95 08/01/24 14:39 92 H 26 H 93 08/01/24 14:18 82 25 H 94 08/01/24 14:11 89 L Room Air 08/01/24 14:09 Room Air 08/01/24 14:06 37 C 85 24 165/82 H 89 L Room Air 08/01/24 14:03 91 H 28 H 93 08/01/24 14:00 84 O2 Del Method O2 Flow Rate 08/01/24 21:15 Room Air 08/01/24 21:00 2 08/01/24 20:45 08/01/24 20:33 2 08/01/24 20:00 2 08/01/24 19:42 2 08/01/24 19:31 2 08/01/24 19:03 2 08/01/24 18:54 2 08/01/24 18:30 08/01/24 18:28 08/01/24 18:27 2 08/01/24 18:15 08/01/24 17:31 08/01/24 17:30 08/01/24 17:21 08/01/24 17:15 08/01/24 17:09 08/01/24 17:06 08/01/24 16:45 08/01/24 16:45 08/01/24 16:30 08/01/24 16:30 08/01/24 16:21 08/01/24 16:15 08/01/24 16:03 08/01/24 16:00 08/01/24 16:00 08/01/24 15:54 08/01/24 15:45 08/01/24 15:45 08/01/24 15:39 08/01/24 15:30 08/01/24 15:30 08/01/24 15:30 2 08/01/24 15:24 2 08/01/24 15:03 08/01/24 14:45 08/01/24 14:39 08/01/24 14:18 08/01/24 14:11 08/01/24 14:09 08/01/24 14:06 08/01/24 14:03 08/01/24 14:00 Laboratory Results 08/01/24 08/01/24 08/01/24 Range/Units 21:07 18:47 18:40 WBC (4.8-10.8) K/ul RBC (4.20-5.40) M/uL Hgb (12.0-16.0) g/dl Hct (37.0-47.0) % MCV (80.0-100.0) fL MCH (25.0-34.0) pg MCHC (32.0-36.0) g/dL RDW Std Deviation (36.4-46.3) fL RDW Coeff of Ata (11.5-14.5) % Plt Count (130-400) K/uL MPV (9.4-12.4) fL Immature Gran % (Auto) % Neut % (Auto) % Lymph % (Auto) % [place] % (Auto) % Eos % (Auto) % Baso % (Auto) % Neut # (Auto) (1.40-6.50) K/uL Lymph # (Auto) (1.20-3.40) K/uL [place] # (Auto) (0.11-0.59) K/uL Eos # (Auto) (0.00-0.50) K/uL Baso # (Auto) (0.00-0.20) K/uL Immature Gran # (Auto) (0.01-0.20) K/uL PT (9.0-12.0) Seconds INR (0.9-1.1) Sodium (136-145) mmol/L Potassium (3.5-5.1) mmol/L Chloride (98-107) mmol/L Carbon Dioxide (21-32) mmol/L Anion Gap (3-11) BUN (6-23) mg/dl Creatinine (0.6-1.2) mg/dl Est Cr Clr Drug Dosing ml/min Est GFR ( Amer) ml/min Est GFR (Non-Af Amer) ml/min BUN/Creatinine Ratio (10-20) Glucose (70-99(Fasting)) mg/dl POC Glucose 155 H 145 H (70-99) mg/dl Lactate (0.4-2.0) mmol/L Calcium (8.6-10.3) mg/dl Magnesium (1.7-2.4) mg/dl Total Bilirubin (0.2-1.0) mg/dl Direct Bilirubin (0-0.2) mg/dl AST (13-39) U/L ALT (7-52) U/L Alkaline Phosphatase (34-104) U/L Troponin I High Sens (0-14) pg/ml Total Protein (6.0-8.3) gm/dl Albumin (3.4-5.0) gm/dl Procalcitonin (0-0.5) ng/ml Urine Color Yellow Urine Appearance Clear (Clear) Urine pH 5.0 (4.5-7.5) Ur Specific [place] 1.017 (1.000-1.030) Urine Protein Negative (Negative) Urine Glucose (UA) Negative (Negative) Urine Ketones Negative (Negative) Urine Blood Negative (Negative) Urine Nitrite Negative (Negative) Urine Bilirubin Negative (Negative) Urine Urobilinogen Negative (Negative) Ur Leukocyte Esterase Negative (Negative) SARS-CoV-2 (PCR) (Negative) Influenza Type A (PCR) (Neg) Influenza Type B (PCR) (Neg) RSV (RT-PCR) (Neg) 08/01/24 08/01/24 08/01/24 Range/Units 15:46 14:00 13:57 WBC 6.56 (4.8-10.8) K/ul RBC 4.26 (4.20-5.40) M/uL Hgb 12.8 (12.0-16.0) g/dl Hct 39.6 (37.0-47.0) % MCV 93.0 (80.0-100.0) fL MCH 30.0 (25.0-34.0) pg MCHC 32.3 (32.0-36.0) g/dL RDW Std Deviation 47.8 H (36.4-46.3) fL RDW Coeff of Ata 14.1 (11.5-14.5) % Plt Count 102 L (130-400) K/uL MPV 10.5 (9.4-12.4) fL Immature Gran % (Auto) 0.3 % Neut % (Auto) 90.8 % Lymph % (Auto) 2.3 % [place] % (Auto) 5.8 % Eos % (Auto) 0.5 % Baso % (Auto) 0.3 % Neut # (Auto) 5.96 (1.40-6.50) K/uL Lymph # (Auto) 0.15 L (1.20-3.40) K/uL [place] # (Auto) 0.38 (0.11-0.59) K/uL Eos # (Auto) 0.03 (0.00-0.50) K/uL Baso # (Auto) 0.02 (0.00-0.20) K/uL Immature Gran # (Auto) 0.02 (0.01-0.20) K/uL PT 25.8 H (9.0-12.0) Seconds INR 2.6 H (0.9-1.1) Sodium 137 (136-145) mmol/L Potassium 4.3 (3.5-5.1) mmol/L Chloride 99 (98-107) mmol/L Carbon Dioxide 29 (21-32) mmol/L Anion Gap 9 (3-11) BUN 25 H (6-23) mg/dl Creatinine 1.23 H (0.6-1.2) mg/dl Est Cr Clr Drug Dosing 39.2 ml/min Est GFR ( Amer) 45.0 ml/min Est GFR (Non-Af Amer) 38.9 ml/min BUN/Creatinine Ratio 20.3 H (10-20) Glucose 149 H (70-99(Fasting)) mg/dl POC Glucose (70-99) mg/dl Lactate 2.2 H* 2.7 H* (0.4-2.0) mmol/L Calcium 8.9 (8.6-10.3) mg/dl Magnesium 1.3 L (1.7-2.4) mg/dl Total Bilirubin 0.5 (0.2-1.0) mg/dl Direct Bilirubin 0.1 (0-0.2) mg/dl AST 14 (13-39) U/L ALT 9 (7-52) U/L Alkaline Phosphatase 77 (34-104) U/L Troponin I High Sens 7.5 (0-14) pg/ml Total Protein 6.7 (6.0-8.3) gm/dl Albumin 3.8 (3.4-5.0) gm/dl Procalcitonin 0.04 (0-0.5) ng/ml Urine Color Urine Appearance (Clear) Urine pH (4.5-7.5) Ur Specific [place] (1.000-1.030) Urine Protein (Negative) Urine Glucose (UA) (Negative) Urine Ketones (Negative) Urine Blood (Negative) Urine Nitrite (Negative) Urine Bilirubin (Negative) Urine Urobilinogen (Negative) Ur Leukocyte Esterase (Negative) SARS-CoV-2 (PCR) NEGATIVE (Negative) Influenza Type A (PCR) Negative (Neg) Influenza Type B (PCR) Negative (Neg) RSV (RT-PCR) Negative (Neg) Diagnostic Findings CT chest diagnostic wo con CT DOSE: 962.42 mGy.cm CLINICAL HISTORY: 88 years-old Female with hypoxia, chf, asp pna. Acute hypoxia TECHNIQUE: Multiaxial CT images of the chest were performed without contrast. A dose lowering technique was utilized adhering to the principles of ALARA. COMPARISON: 09/17/2021 FINDINGS: There are several subcentimeter hypodense thyroid nodules. Cardiomegaly with extensive coronary artery calcifications. Atherosclerosis of the aorta without aneurysm. Unchanged mediastinal lymphadenopathy with pretracheal lymph nodes measuring up to 1.2 cm. Trace pleural effusions. Mild intralobular septal thickening with subsegmental bibasilar atelectasis. Respiratory motion artifact limits evaluation of the lung bases. Central airways appear patent. No acute upper abdominal abnormality. Right proximal humeral ORIF hardware. There is air and debris filled focus in the midline upper chest image 96 series 4 measuring 1.9 cm. Degenerative changes of the spine and shoulders. IMPRESSION: 1. Limited exam secondary to respiratory motion artifact. 2. Cardiomegaly with mild interstitial pulmonary edema and trace pleural effusions. 3. Mild nonspecific mediastinal lymphadenopathy. 4. Small superficial subcutaneous wound within the midline upper chest, possibly a sebaceous cyst extending to the skin surface. ACT 112: Negative or not required by law.
[2024-08-01] MEDS: LORazepam 1 MG TAB PO PRN (22:59)
[2024-08-01] MEDS: metroNIDAZOLE 500 MG/100 ML BAG IV SCH (22:59)
[2024-08-01] MEDS: ACETAMINOPHEN 325 MG TAB PO PRN (22:59)
[2024-08-01] MEDS: SODIUM CHLORIDE 0.9% 1,000 ML IV SCH (23:57)
[2024-08-02] MEDS: LINEZOLID 600 MG/300 ML BAG IV SCH (04:24)
[2024-08-02] MEDS: CEFEPIME 2,000 MG in SYRINGE 0 ML IV SCH (04:24)
[2024-08-02 07:06] LABS: Hematocrit (blood only) 36.5 % (37.0-47.0); Hemoglobin 11.5 g/dl (12.0-16.0); Mean Corpuscular Hemoglobin 29.4 pg (25.0-34.0); Mean Corpuscular Hgb Conc 31.5 g/dL (32.0-36.0); Mean Corpuscular Volume 93.4 fL (80.0-100.0); Mean Platelet Volume 11.1 fL (9.4-12.4); Platelet Count 87 K/uL (130-400); RDW Coefficient of Variation 14.2 % (11.5-14.5); RDW Standard Deviation 48.7 fL (36.4-46.3); Red Blood Count 3.91 M/uL (4.20-5.40); White Blood Count 3.83 K/ul (4.8-10.8)
[2024-08-02 07:22] LABS: BUN Creatinine Ratio 19.1 (10-20); Calcium 8.1 mg/dl (8.6-10.3); Creatinine Clr Calc Pharmacy 41.3 ml/min; Est GFR (African American) 48.9 ml/min; Est GFR (Non-African American) 42.2 ml/min; Magnesium 1.6 mg/dl (1.7-2.4); Potassium 3.7 mmol/L (3.5-5.1)
[2024-08-02 07:26] LABS: INR 2.3 (0.9-1.1); Prothrombin Time 23.4 Seconds (9.0-12.0)
[2024-08-02] MEDS: FUROSEMIDE 40 MG TAB PO SCH (08:20)
[2024-08-02] MEDS: CEROVITE ADV FORMULA TAB PO SCH (08:20)
[2024-08-02] MEDS: OXYBUTYNIN CHLORIDE XL 5 MG TABCR PO SCH (08:21)
[2024-08-02] MEDS: LOSARTAN POTASSIUM 25 MG TAB PO SCH (08:21)
[2024-08-02] MEDS: UMECLIDINIUM/VILANTEROL 62.5/25MCG 7 PUFFS/INHALER INH SCH (08:22)
[2024-08-02] MEDS: FLUTICASONE FUROATE 200MCG 14 PUFFS/INHALER INH SCH (08:22)
[2024-08-02] MEDS: MAGNESIUM SULFATE / D5W 1 GM/100 ML BAG IV ONE (08:23)
[2024-08-02] MEDS ORDERED: NON-FORMULARY MEDICATION (Fluticasone-Umeclidin-Vilanter [Trelegy Ellipta] 200-62.5-25 mcg INH SCH (09:00)
[2024-08-02] MEDS: GABAPENTIN 300 MG CAP PO SCH (10:35)
--- NOTE | 2024-08-02 10:39 | Surgery Progress Note ---
Date of Service August 02, 2024 Assessment & Plan (1) Abscess of chest wall: (2) Cellulitis of chest wall: Plan 88-year-old woman with abscess, status post incision and drainage on the chest wall. She is doing well. She is admitted to the hospital service. wound looks good today. The nurses will repeat pack with quarter inch packing. She will need to be discharged on oral antibiotics. She will follow-up in clinic for a nursing visit on Saturday. Admission and Anticipated Discharge Date Admission Date: August 01, 2024 Subjective Feeling well this morning. Minimal pain at the abscess site. No fevers or chills overnight. Physical Exam Physical Exam: NAD, A&O x 3 AFVSS I&D site clean, dry, no erythema, minimal induration no purulent drainage Results & Data Vital Signs (Past 12 Hours) Vital Signs Temp Pulse Pulse Resp BP Pulse Ox O2 Del Method 08/02/24 07:34 Nasal Cannula 08/02/24 07:15 36.5 C 70 18 146/80 H 96 Nasal Cannula 08/02/24 03:01 37.4 C 77 18 98/57 L 95 Nasal Cannula 08/02/24 00:04 73 08/01/24 22:55 82 O2 Flow Rate 08/02/24 07:34 2 08/02/24 07:15 2 08/02/24 03:01 2 08/02/24 00:04 08/01/24 22:55 Laboratory Results 08/02/24 08/02/24 08/01/24 Range/Units 08:06 06:28 23:38 WBC 3.83 L (4.8-10.8) K/ul RBC 3.91 L (4.20-5.40) M/uL Hgb 11.5 L (12.0-16.0) g/dl Hct 36.5 L (37.0-47.0) % MCV 93.4 (80.0-100.0) fL MCH 29.4 (25.0-34.0) pg MCHC 31.5 L (32.0-36.0) g/dL RDW Std Deviation 48.7 H (36.4-46.3) fL RDW Coeff of Ata 14.2 (11.5-14.5) % Plt Count 87 L (130-400) K/uL MPV 11.1 (9.4-12.4) fL Immature Gran % (Auto) % Neut % (Auto) % Lymph % (Auto) % [place] % (Auto) % Eos % (Auto) % Baso % (Auto) % Neut # (Auto) (1.40-6.50) K/uL Lymph # (Auto) (1.20-3.40) K/uL [place] # (Auto) (0.11-0.59) K/uL Eos # (Auto) (0.00-0.50) K/uL Baso # (Auto) (0.00-0.20) K/uL Immature Gran # (Auto) (0.01-0.20) K/uL PT 23.4 H (9.0-12.0) Seconds INR 2.3 H (0.9-1.1) Sodium 136 (136-145) mmol/L Potassium 3.7 (3.5-5.1) mmol/L Chloride 102 (98-107) mmol/L Carbon Dioxide 29 (21-32) mmol/L Anion Gap 5 (3-11) BUN 22 (6-23) mg/dl Creatinine 1.15 (0.6-1.2) mg/dl Est Cr Clr Drug Dosing 41.3 ml/min Est GFR ( Amer) 48.9 ml/min Est GFR (Non-Af Amer) 42.2 ml/min BUN/Creatinine Ratio 19.1 (10-20) Glucose 146 H (70-99(Fasting)) mg/dl POC Glucose 145 H (70-99) mg/dl Lactate 1.4 (0.4-2.0) mmol/L Calcium 8.1 L (8.6-10.3) mg/dl Magnesium 1.6 L (1.7-2.4) mg/dl Total Bilirubin (0.2-1.0) mg/dl Direct Bilirubin (0-0.2) mg/dl AST (13-39) U/L ALT (7-52) U/L Alkaline Phosphatase (34-104) U/L Troponin I High Sens (0-14) pg/ml Total Protein (6.0-8.3) gm/dl Albumin (3.4-5.0) gm/dl Procalcitonin (0-0.5) ng/ml Urine Color Urine Appearance (Clear) Urine pH (4.5-7.5) Ur Specific [place] (1.000-1.030) Urine Protein (Negative) Urine Glucose (UA) (Negative) Urine Ketones (Negative) Urine Blood (Negative) Urine Nitrite (Negative) Urine Bilirubin (Negative) Urine Urobilinogen (Negative) Ur Leukocyte Esterase (Negative) SARS-CoV-2 (PCR) (Negative) Influenza Type A (PCR) (Neg) Influenza Type B (PCR) (Neg) RSV (RT-PCR) (Neg) 08/01/24 08/01/24 08/01/24 Range/Units 21:07 18:47 18:40 WBC (4.8-10.8) K/ul RBC (4.20-5.40) M/uL Hgb (12.0-16.0) g/dl Hct (37.0-47.0) % MCV (80.0-100.0) fL MCH (25.0-34.0) pg MCHC (32.0-36.0) g/dL RDW Std Deviation (36.4-46.3) fL RDW Coeff of Ata (11.5-14.5) % Plt Count (130-400) K/uL MPV (9.4-12.4) fL Immature Gran % (Auto) % Neut % (Auto) % Lymph % (Auto) % [place] % (Auto) % Eos % (Auto) % Baso % (Auto) % Neut # (Auto) (1.40-6.50) K/uL Lymph # (Auto) (1.20-3.40) K/uL [place] # (Auto) (0.11-0.59) K/uL Eos # (Auto) (0.00-0.50) K/uL Baso # (Auto) (0.00-0.20) K/uL Immature Gran # (Auto) (0.01-0.20) K/uL PT (9.0-12.0) Seconds INR (0.9-1.1) Sodium (136-145) mmol/L Potassium (3.5-5.1) mmol/L Chloride (98-107) mmol/L Carbon Dioxide (21-32) mmol/L Anion Gap (3-11) BUN (6-23) mg/dl Creatinine (0.6-1.2) mg/dl Est Cr Clr Drug Dosing ml/min Est GFR ( Amer) ml/min Est GFR (Non-Af Amer) ml/min BUN/Creatinine Ratio (10-20) Glucose (70-99(Fasting)) mg/dl POC Glucose 155 H 145 H (70-99) mg/dl Lactate (0.4-2.0) mmol/L Calcium (8.6-10.3) mg/dl Magnesium (1.7-2.4) mg/dl Total Bilirubin (0.2-1.0) mg/dl Direct Bilirubin (0-0.2) mg/dl AST (13-39) U/L ALT (7-52) U/L Alkaline Phosphatase (34-104) U/L Troponin I High Sens (0-14) pg/ml Total Protein (6.0-8.3) gm/dl Albumin (3.4-5.0) gm/dl Procalcitonin (0-0.5) ng/ml Urine Color Yellow Urine Appearance Clear (Clear) Urine pH 5.0 (4.5-7.5) Ur Specific [place] 1.017 (1.000-1.030) Urine Protein Negative (Negative) Urine Glucose (UA) Negative (Negative) Urine Ketones Negative (Negative) Urine Blood Negative (Negative) Urine Nitrite Negative (Negative) Urine Bilirubin Negative (Negative) Urine Urobilinogen Negative (Negative) Ur Leukocyte Esterase Negative (Negative) SARS-CoV-2 (PCR) (Negative) Influenza Type A (PCR) (Neg) Influenza Type B (PCR) (Neg) RSV (RT-PCR) (Neg) 08/01/24 08/01/24 08/01/24 Range/Units 15:46 14:00 13:57 WBC 6.56 (4.8-10.8) K/ul RBC 4.26 (4.20-5.40) M/uL Hgb 12.8 (12.0-16.0) g/dl Hct 39.6 (37.0-47.0) % MCV 93.0 (80.0-100.0) fL MCH 30.0 (25.0-34.0) pg MCHC 32.3 (32.0-36.0) g/dL RDW Std Deviation 47.8 H (36.4-46.3) fL RDW Coeff of Ata 14.1 (11.5-14.5) % Plt Count 102 L (130-400) K/uL MPV 10.5 (9.4-12.4) fL Immature Gran % (Auto) 0.3 % Neut % (Auto) 90.8 % Lymph % (Auto) 2.3 % [place] % (Auto) 5.8 % Eos % (Auto) 0.5 % Baso % (Auto) 0.3 % Neut # (Auto) 5.96 (1.40-6.50) K/uL Lymph # (Auto) 0.15 L (1.20-3.40) K/uL [place] # (Auto) 0.38 (0.11-0.59) K/uL Eos # (Auto) 0.03 (0.00-0.50) K/uL Baso # (Auto) 0.02 (0.00-0.20) K/uL Immature Gran # (Auto) 0.02 (0.01-0.20) K/uL PT 25.8 H (9.0-12.0) Seconds INR 2.6 H (0.9-1.1) Sodium 137 (136-145) mmol/L Potassium 4.3 (3.5-5.1) mmol/L Chloride 99 (98-107) mmol/L Carbon Dioxide 29 (21-32) mmol/L Anion Gap 9 (3-11) BUN 25 H (6-23) mg/dl Creatinine 1.23 H (0.6-1.2) mg/dl Est Cr Clr Drug Dosing 39.2 ml/min Est GFR ( Amer) 45.0 ml/min Est GFR (Non-Af Amer) 38.9 ml/min BUN/Creatinine Ratio 20.3 H (10-20) Glucose 149 H (70-99(Fasting)) mg/dl POC Glucose (70-99) mg/dl Lactate 2.2 H* 2.7 H* (0.4-2.0) mmol/L Calcium 8.9 (8.6-10.3) mg/dl Magnesium 1.3 L (1.7-2.4) mg/dl Total Bilirubin 0.5 (0.2-1.0) mg/dl Direct Bilirubin 0.1 (0-0.2) mg/dl AST 14 (13-39) U/L ALT 9 (7-52) U/L Alkaline Phosphatase 77 (34-104) U/L Troponin I High Sens 7.5 (0-14) pg/ml Total Protein 6.7 (6.0-8.3) gm/dl Albumin 3.8 (3.4-5.0) gm/dl Procalcitonin 0.04 (0-0.5) ng/ml Urine Color Urine Appearance (Clear) Urine pH (4.5-7.5) Ur Specific [place] (1.000-1.030) Urine Protein (Negative) Urine Glucose (UA) (Negative) Urine Ketones (Negative) Urine Blood (Negative) Urine Nitrite (Negative) Urine Bilirubin (Negative) Urine Urobilinogen (Negative) Ur Leukocyte Esterase (Negative) SARS-CoV-2 (PCR) NEGATIVE (Negative) Influenza Type A (PCR) Negative (Neg) Influenza Type B (PCR) Negative (Neg) RSV (RT-PCR) Negative (Neg)
--- NOTE | 2024-08-02 12:15 | Electrocardiogram Report ---
Test Reason : Blood Pressure : */* mmHG Vent. Rate : 86 BPM Atrial Rate : * BPM P-R Int : * ms QRS Dur : 66 ms QT Int : 358 ms P-R-T Axes : * 30 -2 degrees QTcB Int : 428 ms Atrial fibrillation Low voltage QRS Abnormal ECG When compared with ECG of 30-May-2024 13:04, Minimal criteria for Anterior infarct are no longer Present Confirmed by Germán Shea [id number] on 08/02/2024 12:15:33 PM Referred By: Confirmed By: Germán Shea
--- NOTE | 2024-08-02 13:17 | Hospitalist Progress Note ---
Date of Service August 02, 2024 Assessment & Plan (1) Abscess of chest wall: (2) Cellulitis of chest wall: (3) Acute on chronic hypoxic respiratory failure: (4) Aspiration into airway: (5) Paroxysmal atrial fibrillation: (6) DM type 2 (diabetes mellitus, type 2): (7) COPD with asthma: (8) Hypertension: (9) History of TIA (transient ischemic attack): (10) Hyperlipidemia: Plan Patient is an 88-year-old female with PMH of type 2 diabetes, hyperlipidemia with statin intolerance, COPD, chronic hypoxic resp failure on 2L NC O2 with exertion and HS, atrial fibrillation on Coumadin, hypertension, history of TIA, benign essential tremor, history of uterine cancer and other medical problems listed below who presents from home with infection on chest x 1 week. Chest wall abscess/cellulitis Sebaceous cyst Lactic acidosis--resolved with IV fluids --Chest CT:Small superficial subcutaneous wound within the midline upper chest, possibly a sebaceous cyst extending to the skin surface.Mild nonspecific mediastinal lymphadenopathy. --S/P I&D -- Blood cultures pending --Wound cultures pending --Continue IV cefepime, Flagyl Also on doxycycline Continue wound care Appreciate surgery input Titrate antibiotics as able Ambulatory dysfunction Fall precautions PT OT Acute on chronic hypoxic resp failure Chronic hypoxic resp failure on 2L NC O2 with exertion and HS Likely multifactorial CHF, possible aspiration Cont supplemental O2, wean as tolerated On antibiotics as above Continue diuretics Monitor volume status Hypomagnesemia Replete electrolytes as needed Monitor Decompensated HFpEF CXR with cardiomegaly with pulmonary vascular congestion. Mild bibasilar densities favor atelectasis. A mild nonspecific pneumonitis considered less likely Most recent echo from 2023 with preserved EF 60-65%, mild aortic stenosis Continue diuretics Monitor volume status Paroxysmal A fib Rate WNL, not on rate/rhythm control Continue Coumadin for anticoagulation Monitor INR 2.3 today DM II A1c 7.2 in May 2024 Hold home agents SSI while in-patient BSG AC HS HTN Continue losartan Monitor BP CKD III Monitor renal function Avoid nephrotoxic agents as able Cr stable Morbid obesity BMI 41 DVT Px: Coumadin Code status: DNR/DNI Disposition PT OT prior to discharge Admission and Anticipated Discharge Date Admission Date: August 01, 2024 Subjective Patient is seen and examined at bedside States having soreness on her chest at the site of procedure Denies any dyspnea, nausea, vomiting, abdominal pain Discussed with patient's family at bedside Also discussed with surgery today Review of Systems Review of Systems: All systems reviewed & are unremarkable except as noted in Subjective Physical Exam Physical Exam: Physical Exam: Vitals signs as noted above General Appearance:Obese, no apparent distress, Elderly Head: normocephalic, Atraumatic Eyes: normal inspection, EOMI Neck: supple, Trachea midline Respiratory/Chest: Decreased breath sounds, CTA, No accessory muscle use Cardiovascular: S1, S2, No murmur Abdomen/GI:Soft, Non tender, Bowel sounds present Extremities/Musculoskeletal:normal inspection, 1+ B/L LE edema Neurologic/Psych:AAO, grossly no focal neurological deficits Skin: normal color, warm Results & Data Results & Data Vital Signs (Past 12 Hours) Vital Signs Temp Pulse Pulse Resp BP Pulse Ox O2 Del Method 08/02/24 11:00 36.4 C L 75 18 127/75 95 Nasal Cannula 08/02/24 10:46 76 08/02/24 07:34 Nasal Cannula 08/02/24 07:15 36.5 C 70 18 146/80 H 96 Nasal Cannula 08/02/24 03:01 37.4 C 77 18 98/57 L 95 Nasal Cannula O2 Flow Rate 08/02/24 11:00 2 08/02/24 10:46 08/02/24 07:34 2 08/02/24 07:15 2 08/02/24 03:01 2 Laboratory Results Short CBC 08/01/24 08/02/24 Range/Units 13:57 06:28 WBC 6.56 3.83 L (4.8-10.8) K/ul Hgb 12.8 11.5 L (12.0-16.0) g/dl Hct 39.6 36.5 L (37.0-47.0) % Plt Count 102 L 87 L (130-400) K/uL BMP 08/01/24 08/02/24 13:57 06:28 Sodium 137 136 Potassium 4.3 3.7 Chloride 99 102 Carbon Dioxide 29 29 BUN 25 H 22 Creatinine 1.23 H 1.15 Glucose 149 H 146 H Calcium 8.9 8.1 L Liver Function 08/01/24 Range/Units 13:57 Total Bilirubin 0.5 (0.2-1.0) mg/dl Direct Bilirubin 0.1 (0-0.2) mg/dl AST 14 (13-39) U/L ALT 9 (7-52) U/L Alkaline Phosphatase 77 (34-104) U/L Albumin 3.8 (3.4-5.0) gm/dl Urine 08/01/24 Range/Units 18:40 Urine Color Yellow Urine Appearance Clear (Clear) Urine pH 5.0 (4.5-7.5) Ur Specific [place] 1.017 (1.000-1.030) Urine Protein Negative (Negative) Urine Glucose (UA) Negative (Negative)
[2024-08-02] MEDS: WARFARIN SOD 5 MG TAB PO SCH (16:17)
[2024-08-02] MEDS: DOXYCYCLINE HYCLATE 100 MG CAP PO SCH (19:37)
[2024-08-02] MEDS: MAGNESIUM CHLORIDE W/CALCIUM 64MG DELAYED REL TAB PO SCH (19:37)
[2024-08-03 06:37] LABS: Hematocrit (blood only) 34.5 % (37.0-47.0); Hemoglobin 11.3 g/dl (12.0-16.0); Mean Corpuscular Hgb Conc 32.8 g/dL (32.0-36.0); Mean Corpuscular Volume 91.5 fL (80.0-100.0); Platelet Count 89 K/uL (130-400); RDW Coefficient of Variation 14.2 % (11.5-14.5); RDW Standard Deviation 47.8 fL (36.4-46.3); Red Blood Count 3.77 M/uL (4.20-5.40); White Blood Count 3.91 K/ul (4.8-10.8)
[2024-08-03 07:00] LABS: BUN Creatinine Ratio 19.8 (10-20); Calcium 8.3 mg/dl (8.6-10.3); Creatinine Clr Calc Pharmacy 41.1 ml/min; Est GFR (African American) 48.3 ml/min; Est GFR (Non-African American) 41.7 ml/min; Magnesium 1.8 mg/dl (1.7-2.4); Potassium 4.2 mmol/L (3.5-5.1)
[2024-08-03 07:01] LABS: Prothrombin Time 20.4 Seconds (9.0-12.0)
[2024-08-03 08:15] VITALS: RESP 20
[2024-08-03 11:12] VITALS: BP 151/79; TEMP 97.7; O2SAT 92
--- NOTE | 2024-08-03 13:26 | Hospitalist Progress Note ---
Date of Service August 03, 2024 Assessment & Plan (1) Abscess of chest wall: (2) Cellulitis of chest wall: (3) Acute on chronic hypoxic respiratory failure: (4) Aspiration into airway: (5) Paroxysmal atrial fibrillation: (6) DM type 2 (diabetes mellitus, type 2): (7) COPD with asthma: (8) Hypertension: (9) History of TIA (transient ischemic attack): (10) Hyperlipidemia: Plan Patient is an 88-year-old female with PMH of type 2 diabetes, hyperlipidemia with statin intolerance, COPD, chronic hypoxic resp failure on 2L NC O2 with exertion and HS, atrial fibrillation on Coumadin, hypertension, history of TIA, benign essential tremor, history of uterine cancer and other medical problems listed below who presents from home with infection on chest x 1 week. Chest wall abscess/cellulitis Sebaceous cyst Lactic acidosis--resolved with IV fluids --Chest CT:Small superficial subcutaneous wound within the midline upper chest, possibly a sebaceous cyst extending to the skin surface.Mild nonspecific mediastinal lymphadenopathy. --S/P I&D -- Blood cultures negative to date --Wound cultures pending --Continue IV cefepime, Flagyl Also on doxycycline Continue wound care Appreciate surgery input Plan to discharge home on oral antibiotics today Advised to follow-up with surgery on discharge Ambulatory dysfunction Fall precautions PT OT: Recommends rehab, patient and family prefers to be discharged home with home health Acute on chronic hypoxic resp failure Chronic hypoxic resp failure on 2L NC O2 with exertion and HS Likely multifactorial CHF, possible aspiration Cont supplemental O2, wean as tolerated On antibiotics as above Continue diuretics Monitor volume status Hypomagnesemia Replete electrolytes as needed Monitor Decompensated HFpEF CXR with cardiomegaly with pulmonary vascular congestion. Mild bibasilar den sities favor atelectasis. A mild nonspecific pneumonitis considered less likely Most recent echo from 2023 with preserved EF 60-65%, mild aortic stenosis Continue diuretics Monitor volume status Paroxysmal A fib Rate WNL, not on rate/rhythm control Continue Coumadin for anticoagulation Monitor INR 2.0 today DM II A1c 7.2 in May 2024 Hold home agents SSI while in-patient BSG AC HS HTN Continue losartan Monitor BP CKD III Monitor renal function Avoid nephrotoxic agents as able Cr stable Morbid obesity BMI 41 DVT Px: Coumadin Code status: DNR/DNI Disposition Home with HH Admission and Anticipated Discharge Date Admission Date: August 01, 2024 Subjective Patient is seen and examined at bedside States feeling better today Denies any pain at the site of I&D today Discussed with patient's family at bedside Prefers to be discharged home today Denies any dyspnea, nausea, vomiting, abdominal pain Review of Systems Review of Systems: All systems reviewed & are unremarkable except as noted in Subjective Physical Exam Physical Exam: Physical Exam: Vitals signs as noted above General Appearance:Obese, no apparent distress, Elderly Head: normocephalic, Atraumatic Eyes: normal inspection, EOMI Neck: supple, Trachea midline Respiratory/Chest: Decreased breath sounds, CTA, No accessory muscle use Cardiovascular: S1, S2, No murmur Abdomen/GI:Soft, Non tender, Bowel sounds present Extremities/Musculoskeletal:normal inspection, 1+ B/L LE edema Neurologic/Psych:AAO, grossly no focal neurological deficits Skin: normal color, warm Results & Data Results & Data Vital Signs (Past 12 Hours) Vital Signs Temp Pulse Resp BP Pulse Ox O2 Del Method O2 Flow Rate 08/03/24 11:11 36.5 C 76 20 151/79 H 92 Nasal Cannula 2 08/03/24 08:13 37.1 C 80 20 131/91 94 Nasal Cannula 2 08/03/24 03:22 36.8 C 84 18 118/63 97 Nasal Cannula 2 Laboratory Results Short CBC 08/03/24 Range/Units 05:54 WBC 3.91 L (4.8-10.8) K/ul Hgb 11.3 L (12.0-16.0) g/dl Hct 34.5 L (37.0-47.0) % Plt Count 89 L (130-400) K/uL BMP 08/03/24 05:54 Sodium 137 Potassium 4.2 Chloride 103 Carbon Dioxide 29 BUN 23 Creatinine 1.16 Glucose 119 H Calcium 8.3 L
--- NOTE | 2024-08-03 13:44 | Discharge Summary ---
Date of Service August 03, 2024 Admission HPI Per Admitting Provider This is an 88-year-old female with PMH of type 2 diabetes, hyperlipidemia with statin intolerance, COPD, chronic hypoxic resp failure on 2L NC O2 with exertion and HS, atrial fibrillation on Coumadin, hypertension, history of TIA, benign essential tremor, history of uterine cancer and other medical problems listed below who presents from home with infection on chest x 1 week. Was seen by PCP on 07/29 noting a cyst on her anterior chest wall that has been painful. Had an appt with gen surg for excision yesterday that was canceled and rescheduled for next week. Was prescribed Bactrim by PCP earlier this week and patient has taken 2 doses so far. History of multiple seborrheic keratotic lesions on face per PCP note treated with liquid nitrogen. When patient visited daughter earlier today, she had chills and a low grade fever of 99.4 F. Took 500mg tylenol around 11AM. Also notes feeling generally weaker and wore her O2 even at rest. Was brought to ED for further evaluation. Afebrile since arrival, no headache, lightheadedness, CP, SOB, N/V, abd pain, dysuria, diarrhea or constipation. Denies notable weight gain or BLE edema. No recent cough, congestion or URI. Did have difficulty taking her gabapentin a few days ago and thinks she aspirated. Uses a walker for ambulation and lives with daughter. Admission Exam Per Admitting Provider General Appearance: WD/WN, vitals as above, NAD, sitting up in bed, pleasant, slight tachypnea noted Head: normocephalic, atraumatic Eyes: normal inspection, PERRL, conjunctivae normal, anicteric sclerae ENT: external ear and nose normal, oropharynx normal Neck: normal visual inspection, trachea midline, no thyromegaly Respiratory: decreased breath sounds bilaterally. No accessory muscle use Cardiovascular: regular rate, rhythm, normal peripheral pulses, trace BLE edema Chest: Raised lesion s/p I&D with packing, TTP with surrounding erythema and warmth Abdomen/GI: normal bowel sounds, soft, nontender, no hepatosplenomegaly Extremities/Musculoskeletal: no cyanosis or clubbing, extremities motor strength 5/5 Neurologic: PERRL, EOMI, accommodation nl, no face palsy, no dysarthria, CN's II-XI intact bilaterally and moves all extremities Psychiatric: A+Ox3, euthymic affect Skin: no rashes, normal color, warm/dry. + L arm with abrasion and surrounding erythema Principal Diagnosis Chest wall abscess/cellulitis Sebaceous cyst Hypomagnesemia Discharge Data Allergies Allergy/AdvReac Type Severity Reaction Status Date / Time vancomycin Allergy Severe ANAPHYLAXIS Verified 05/30/24 15:17 adhesive Allergy Intermediate RED AND Verified 05/30/24 15:17 ITCHY SKIN latex Allergy Intermediate Rash Verified 05/30/24 15:17 Penicillins Allergy Intermediate SWELLING Verified 08/01/24 15:01 PER [facility]G lisinopril AdvReac Intermediate Cough Verified 05/30/24 15:17 prednisone AdvReac Intermediate INCREASED Verified 05/30/24 15:17 HER RECTAL BLEEDING Consultations 08/01/24 15:22 ED Decision to Admit Stat 08/01/24 16:00 Consult General Surgery Routine Procedures Performed Laboratory Results WBC 3.91 K/ul (4.8-10.8) L 08/03/24 05:54 RBC 3.77 M/uL (4.20-5.40) L 08/03/24 05:54 Hgb 11.3 g/dl (12.0-16.0) L 08/03/24 05:54 Hct 34.5 % (37.0-47.0) L 08/03/24 05:54 MCV 91.5 fL (80.0-100.0) 08/03/24 05:54 MCH 30.0 pg (25.0-34.0) 08/03/24 05:54 MCHC 32.8 g/dL (32.0-36.0) 08/03/24 05:54 RDW Std Deviation 47.8 fL (36.4-46.3) H 08/03/24 05:54 RDW Coeff of Ata 14.2 % (11.5-14.5) 08/03/24 05:54 Plt Count 89 K/uL (130-400) L 08/03/24 05:54 MPV 11.0 fL (9.4-12.4) 08/03/24 05:54 Immature Gran % (Auto) 0.3 % 08/01/24 13:57 Neut % (Auto) 90.8 % 08/01/24 13:57 Lymph % (Auto) 2.3 % 08/01/24 13:57 [place] % (Auto) 5.8 % 08/01/24 13:57 Eos % (Auto) 0.5 % 08/01/24 13:57 Baso % (Auto) 0.3 % 08/01/24 13:57 Neut # (Auto) 5.96 K/uL (1.40-6.50) 08/01/24 13:57 Lymph # (Auto) 0.15 K/uL (1.20-3.40) L 08/01/24 13:57 [place] # (Auto) 0.38 K/uL (0.11-0.59) 08/01/24 13:57 Eos # (Auto) 0.03 K/uL (0.00-0.50) 08/01/24 13:57 Baso # (Auto) 0.02 K/uL (0.00-0.20) 08/01/24 13:57 Immature Gran # (Auto) 0.02 K/uL (0.01-0.20) 08/01/24 13:57 PT 20.4 Seconds (9.0-12.0) H 08/03/24 05:54 INR 2.0 (0.9-1.1) H 08/03/24 05:54 Sodium 137 mmol/L (136-145) 08/03/24 05:54 Potassium 4.2 mmol/L (3.5-5.1) 08/03/24 05:54 Chloride 103 mmol/L (98-107) 08/03/24 05:54 Carbon Dioxide 29 mmol/L (21-32) 08/03/24 05:54 Anion Gap 5 (3-11) 08/03/24 05:54 BUN 23 mg/dl (6-23) 08/03/24 05:54 Creatinine 1.16 mg/dl (0.6-1.2) 08/03/24 05:54 Est Cr Clr Drug Dosing 41.1 ml/min 08/03/24 05:54 Est GFR ( Amer) 48.3 ml/min 08/03/24 05:54 Est GFR (Non-Af Amer) 41.7 ml/min 08/03/24 05:54 BUN/Creatinine Ratio 19.8 (10-20) 08/03/24 05:54 Glucose 119 mg/dl (70-99(Fasting)) H 08/03/24 05:54 POC Glucose 221 mg/dl (70-99) H 08/03/24 12:08 Lactate 1.4 mmol/L (0.4-2.0) 08/01/24 23:38 Calcium 8.3 mg/dl (8.6-10.3) L 08/03/24 05:54 Magnesium 1.8 mg/dl (1.7-2.4) 08/03/24 05:54 Total Bilirubin 0.5 mg/dl (0.2-1.0) 08/01/24 13:57 Direct Bilirubin 0.1 mg/dl (0-0.2) 08/01/24 13:57 AST 14 U/L (13-39) 08/01/24 13:57 ALT 9 U/L (7-52) 08/01/24 13:57 Alkaline Phosphatase 77 U/L (34-104) 08/01/24 13:57 Troponin I High Sens 7.5 pg/ml (0-14) 08/01/24 13:57 Total Protein 6.7 gm/dl (6.0-8.3) 08/01/24 13:57 Albumin 3.8 gm/dl (3.4-5.0) 08/01/24 13:57 Procalcitonin 0.04 ng/ml (0-0.5) 08/01/24 13:57 Urine Color Yellow 08/01/24 18:40 Urine Appearance Clear (Clear) 08/01/24 18:40 Urine pH 5.0 (4.5-7.5) 08/01/24 18:40 Ur Specific [place] 1.017 (1.000-1.030) 08/01/24 18:40 Urine Protein Negative (Negative) 08/01/24 18:40 Urine Glucose (UA) Negative (Negative) 08/01/24 18:40 Urine Ketones Negative (Negative) 08/01/24 18:40 Urine Blood Negative (Negative) 08/01/24 18:40 Urine Nitrite Negative (Negative) 08/01/24 18:40 Urine Bilirubin Negative (Negative) 08/01/24 18:40 Urine Urobilinogen Negative (Negative) 08/01/24 18:40 Ur Leukocyte Esterase Negative (Negative) 08/01/24 18:40 SARS-CoV-2 (PCR) NEGATIVE (Negative) 08/01/24 14:00 Influenza Type A (PCR) Negative (Neg) 08/01/24 14:00 Influenza Type B (PCR) Negative (Neg) 08/01/24 14:00 RSV (RT-PCR) Negative (Neg) 08/01/24 14:00 Impressions Chest X-Ray 08/01/24 13:53 XR chest 1V portable HISTORY: 88 years-old Female Sepsis COMPARISON: 05/30/2024 TECHNIQUE: AP view the chest FINDINGS: Cardiac silhouette is enlarged. Pulmonary vascular congestion with interstitial coarsening. Mild bibasilar densities. No pneumothorax or pleural effusion. Degenerative changes of the shoulders and spine. Right proximal humeral ORIF hardware. IMPRESSION: 1. Cardiomegaly with pulmonary vascular congestion. 2. Mild bibasilar densities favor atelectasis. A mild nonspecific pneumonitis considered less likely. ACT 112: Negative or not required by law. The above report was generated using voice recognition software. It may contain grammatical, syntax or spelling errors. Electronically signed by: Ben Acevedo M.D. 08/01/2024 2:[address] 08/01/24 17:07 CT chest diagnostic wo con CT DOSE: 962.42 mGy.cm CLINICAL HISTORY: 88 years-old Female with hypoxia, chf, asp pna. Acute hypoxia TECHNIQUE: Multiaxial CT images of the chest were performed without contrast. A dose lowering technique was utilized adhering to the principles of ALARA. COMPARISON: 09/17/2021 FINDINGS: There are several subcentimeter hypodense thyroid nodules. Cardiomegaly with extensive coronary artery calcifications. Atherosclerosis of the aorta without aneurysm. Unchanged mediastinal lymphadenopathy with pretracheal lymph nodes measuring up to 1.2 cm. Trace pleural effusions. Mild intralobular septal thickening with subsegmental bibasilar atelectasis. Respiratory motion artifact limits evaluation of the lung bases. Central airways appear patent. No acute upper abdominal abnormality. Right proximal humeral ORIF hardware. There is air and debris filled focus in the midline upper chest image 96 series 4 measuring 1.9 cm. Degenerative changes of the spine and shoulders. IMPRESSION: 1. Limited exam secondary to respiratory motion artifact. 2. Cardiomegaly with mild interstitial pulmonary edema and trace pleural effusions. 3. Mild nonspecific mediastinal lymphadenopathy. 4. Small superficial subcutaneous wound within the midline upper chest, possibly a sebaceous cyst extending to the skin surface. ACT 112: Negative or not required by law. Electronically signed by: Ben Acevedo M.D. 08/01/2024 7:27 PM Ordered Studies 08/01/24 17:07 CT chest diagnostic wo con Urgent Hospital Course (1) Abscess of chest wall: (2) Cellulitis of chest wall: (3) Acute on chronic hypoxic respiratory failure: (4) Aspiration into airway: (5) Paroxysmal atrial fibrillation: (6) DM type 2 (diabetes mellitus, type 2): (7) COPD with asthma: (8) Hypertension: (9) History of TIA (transient ischemic attack): (10) Hyperlipidemia: Plan Patient is an 88-year-old female with PMH of type 2 diabetes, hyperlipidemia with statin intolerance, COPD, chronic hypoxic resp failure on 2L NC O2 with exertion and HS, atrial fibrillation on Coumadin, hypertension, history of TIA, benign essential tremor, history of uterine cancer and other medical problems listed below who presents from home with infection on chest x 1 week. Chest wall abscess/cellulitis Sebaceous cyst Lactic acidosis--resolved with IV fluids --Chest CT:Small superficial subcutaneous wound within the midline upper chest, possibly a sebaceous cyst extending to the skin surface.Mild nonspecific mediastinal lymphadenopathy. --S/P I&D -- Blood cultures negative to date --Wound cultures pending --Continue IV cefepime, Flagyl Also on doxycycline Continue wound care Appreciate surgery input Plan to discharge home on oral antibiotics today Advised to follow-up with surgery on discharge Ambulatory dysfunction Fall precautions PT OT: Recommends rehab, patient and family prefers to be discharged home with home health Acute on chronic hypoxic resp failure Chronic hypoxic resp failure on 2L NC O2 with exertion and HS Likely multifactorial CHF, possible aspiration Cont supplemental O2, wean as tolerated On antibiotics as above Continue diuretics Monitor volume status Hypomagnesemia Replete electrolytes as needed Monitor Decompensated HFpEF CXR with cardiomegaly with pulmonary vascular congestion. Mild bibasilar densities favor atelectasis. A mild nonspecific pneumonitis considered less likely Most recent echo from 2023 with preserved EF 60-65%, mild aortic stenosis Continue diuretics Monitor volume status Paroxysmal A fib Rate WNL, not on rate/rhythm control Continue Coumadin for anticoagulation Monitor INR 2.0 today DM II A1c 7.2 in May 2024 Hold home agents SSI while in-patient BSG AC HS HTN Continue losartan Monitor BP CKD III Monitor renal function Avoid nephrotoxic agents as able Cr stable Morbid obesity BMI 41 DVT Px: Coumadin Code status: DNR/DNI Disposition Home with HH Total Time Total Time Spent Total Time Spent (In Minutes): 45 minutes Discharge Plan Discharge Items Patient Disposition: Home - Home Health Services Reason For Visit: SOB Discharge Diagnosis: Chest wall abscess/cellulitis Sebaceous cyst Hypomagnesemia Activity: Per Instructions section Exercise/Sports: Gradually increase as tolerated Non-emergency contact: Primary Care Provider and Surgeon Call non-emergency contact if: you have any medication questions, your symptoms worsen, your pain is concerning for you and you have a fever Follow-up/Referrals: Mikie Vital MD [Physician] - (Date & Time 08/06/2024 10:15 AM Provider Mikie Vital MD Department General Surgery, [facility] ) Duong Looney MD [Primary Care Provider] - (Date & Time 08/07/2024 8:20 AM Provider Duong Looney MD Department [facility] ) Diet: Carb Consistent or DM2 and Heart Healthy Diet Texture: Easy to Chew Addtl Attending Provider Instructions: Follow-up with your primary care physician in 1 week Follow-up with your surgeon Dr. Vital as scheduled Follow-up with Coumadin clinic for further adjustment of Coumadin dose as needed -- Your blood, wound cultures are pending at the time of discharge. Follow-up with your physician for results. --Complete the antibiotic course Bactrim as previously prescribed. Seek immediate medical attention if your symptoms reoccur or worsen Please take all medications as instructed on discharge list below. Please call if you have any questions or problems. You can reach a [facility] hospitalist on duty at 24 hours a day by calling [phone] Pending Studies at Discharge: Yes Studies:: Blood, wound cultures Stand-Alone Forms: My [facility], Smoking Cessation Medications and DC Order Prescriptions: New magnesium chloride [Mag 64] 64 mg Tablet,Delayed Release (Dr/Ec) 64 mg PO BID Qty: 30 0RF Advanced Probiotic 625 mg (10 billion cell) Capsule 1 cap PO DAILY 10 Days Qty: 10 0RF Continued atorvastatin 10 mg tablet 10 mg PO HS acetaminophen [Tylenol Extra Strength] 500 mg Tablet 1,000 mg PO Q6H PRN (Reason: Pain) warfarin 5 mg Tablet 5 mg PO SUTUWETHFRSA@1600 losartan 25 mg Tablet 25 mg PO DAILY gabapentin 300 mg capsule 300 mg PO UD Rx Instructions: 1 capsule BID and 2 capsules HS lorazepam 1 mg tablet 1 mg PO HS PRN (Reason: ANXIETY/SLEEP) albuterol sulfate 90 mcg/actuation HFA aerosol inhaler 2 puff INHALATION Q4 PRN (Reason: Shortness Of Breath Or Wheezing) metformin 500 mg tablet extended release 24 hr 500 mg PO BIDM solifenacin 5 mg tablet 5 mg PO QAM PreserVision AREDS-2 250-90-40-1 mg Capsule 1 tab PO BIDM warfarin 2.5 mg Tablet 2.5 mg PO MO@1600 sulfamethoxazole-trimethoprim 800-160 mg tablet 1 tab PO BID Rx Instructions: PER PT'S DAUGHTER "NEVER STARTED". nystatin [Nyamyc] 100,000 unit/gram powder 1 applic TOPICAL BID PRN (Reason: ABD FOLDS NEEDED) loperamide 2 mg Capsule 2 mg PO DIRECTED PRN (Reason: Diarrhea) Rx Instructions: administer after each loose stool until symptoms controlled; do not exceed 8 mg per 24 hrs triamcinolone acetonide 0.1 % Cream 1 applic TOPICAL BID PRN (Reason: SKIN IRRITATION NEEDED) Trelegy Ellipta 200-62.5-25 mcg Blister With Device 1 inh INHALATION DAILY furosemide 20 mg tablet 40 mg PO DAILY Qty: 0 0RF Discharge Orders: Discharge Order (Routine); Ordered 08/03/24 Ordered By: Dennis Garcia Admission Data Admit Date/Time: 08/01/24 15:48 Attending Provider: Dennis Garcia Admit Provider: Geovanna Torres Primary Care Provider: Duong Looney Other Providers: Mikie Vital; Geovanna Torres
[2024-08-03] MEDS: ADVANCED PROBIOTIC 625 MG CAPSULE PO SCH (13:51)
[2024-08-03 14:23] VITALS: PULSE 76
[2024-08-03] MEDS ORDERED: WARFARIN SOD 2.5 MG TAB PO SCH (16:00)
--- NOTE | 2024-08-04 11:08 | Coding Query ---
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 Please assist us with the question(s) below: Clinical Indicators: ED Note: * By examination patient appears septic. * Nidus of infection is likely abscess in chest wall. * Gave 500 mL normal saline bolus for sepsis resuscitation. * cefepime 2 g IV, Flagyl 500 mg IV, linezolid 600 mg IV * Vitals: Blood Pressure: 136/86, Pulse 84, RR 28, T 37.0C, O2 88% on RA * I&D of abscess on central upper chest wall * Lab results @ 13:57: WBC - 6.56; Lactate - 2.7; Procalcitonin - 0.04 * Lab results @ 15.46: Lactate - 2.2 * Discharge Problem: Severe sepsis, Hypoxia, Abscess of chest wall Coding Question(s): Without further mention of sepsis in the medical record, can you clarify if severe sepsis was: ( ) Ruled in ( x) Ruled out ( ) Other (please specify) ( ) Unable to determine. Thank you Shauna Sánchez Principal Diagnosis: "that condition established after study, to be chiefly responsible for occasioning the admission of the patient to the hospital for care." Co-Existing Principal Diagnosis: "when two or more diagnoses equally meet the criteria for principal diagnosis as determined by the circumstances of admission, diagnostic work up, and/or therapy provided, and the Alphabetic Index, Tabular List, or another coding guideline does not provide sequencing direction, any one of the diagnoses may be sequenced first." "When the physician has documented what appears to be a current diagnosis in the body of the record, but has not included the diagnosis in the final diagnostic statement, the physician should be asked whether the diagnosis should be added." (Source [facility] 2 QTR90. p3-4) KIMBERLI
[2024-08-05 21:25] LABS: A calco-baum cmplx NotReported Not Detected (NotDetected); Bact fragilis Not Reported Not Detected (NotDetected); Blood Culture Id Panel PCR Panel Negative (NotDetected); C auris Not Reported Not Detected (NotDetected); Calbicans Not Reported Not Detected (NotDetected); Candida glabrata Not Reported Not Detected (NotDetected); Candida krusei Not Reported Not Detected (NotDetected); Cneoformans/gatti Not Reported Not Detected (NotDetected); Cparapsilosis Not Reported Not Detected (NotDetected); E cloacae compx Not Reported Not Detected (NotDetected); Efaecalis Not Reported Not Detected (NotDetected); Efaecium Not Reported Not Detected (NotDetected); Enterobacterales Not Reported Not Detected (NotDetected); Escherichia coli Not Reported Not Detected (NotDetected); H influenzae Not Reported Not Detected (NotDetected); K aerogenes Not Reported Not Detected (NotDetected); Koxytoca Not Reported Not Detected (NotDetected); Kpneumoniae grp Not Reported Not Detected (NotDetected); Lmonocyt Not Reported Not Detected (NotDetected); N meningitidis Not Reported Not Detected (NotDetected); P aeruginosa Not Reported Not Detected (NotDetected); Proteus spp Not Reported Not Detected (NotDetected); Salmonella spp Not Reported Not Detected (NotDetected); Staph lugdunensis Not Reported Not Detected (NotDetected); Staph spp. Not Reported Not Detected (NotDetected); Staphaureus Not Reported Not Detected (NotDetected); Staphepi Not Reported Not Detected (NotDetected); Stenmaltophilia Not Reported Not Detected (NotDetected); Strep agal(GrpB) Not Reported Not Detected (NotDetected); Strep pneum Not Reported Not Detected (NotDetected); Strep pyog (GrpA) Not Reported Not Detected (NotDetected); Strep spp Not Reported Not Detected (NotDetected)
== END 2024-08-03 14:54 | disposition home health service (06) | DRG 602 ==
LOC: ED 13:42 → SUATTDRO 15:48 → EDINP 15:48 → 2N 22:33

== ENCOUNTER 2024-08-05 10:39 | Inpatient (IN) ==
[2024-08-05 11:27] LABS: Basophils # (auto) 0.03 K/uL (0.00-0.20); Basophils % (auto) 0.4 %; Hematocrit (blood only) 39.4 % (37.0-47.0); Hemoglobin 12.5 g/dl (12.0-16.0); Immature Granulocytes # (auto) 0.05 K/uL (0.01-0.20); Immature Granulocytes % (auto) 0.7 %; Lymphocytes # (auto) 0.45 K/uL (1.20-3.40); Lymphocytes % (auto) 6.4 %; Mean Corpuscular Hemoglobin 29.6 pg (25.0-34.0); Mean Corpuscular Hgb Conc 31.7 g/dL (32.0-36.0); Mean Corpuscular Volume 93.4 fL (80.0-100.0); Mean Platelet Volume 10.7 fL (9.4-12.4); Monocytes # (auto) 0.88 K/uL (0.11-0.59); Monocytes % (auto) 12.6 %; Neutrophils # (auto) 5.57 K/uL (1.40-6.50); Neutrophils % (auto) 79.9 %; Platelet Count 111 K/uL (130-400); RDW Coefficient of Variation 14.2 % (11.5-14.5); RDW Standard Deviation 48.7 fL (36.4-46.3); Red Blood Count 4.22 M/uL (4.20-5.40); White Blood Count 6.98 K/ul (4.8-10.8)
[2024-08-05 11:43] LABS: Albumin Globulin Ratio 1.2 (0.9-2); Albumin Level 3.9 gm/dl (3.4-5.0); BUN Creatinine Ratio 18.4 (10-20); Bilirubin,Total 0.7 mg/dl (0.2-1.0); Calcium 9.1 mg/dl (8.6-10.3); Creatinine Clr Calc Pharmacy 43.7 ml/min; Est GFR (African American) 49.4 ml/min; Est GFR (Non-African American) 42.6 ml/min; Globulin 3.3 gm/dl (2.5-4.0); Magnesium 1.6 mg/dl (1.7-2.4); Potassium 4.5 mmol/L (3.5-5.1); Total Protein 7.2 gm/dl (6.0-8.3)
[2024-08-05 11:48] LABS: INR 1.7 (0.9-1.1); Prothrombin Time 17.9 Seconds (9.0-12.0); Troponin I High Sensitivity 10.6 pg/ml (0-14)
--- NOTE | 2024-08-05 11:50 | XRay Report ---
SINGLE VIEW CHEST CLINICAL HISTORY: Atypical chest pain FINDINGS: An AP, portable, upright chest radiograph is compared to chest x-ray and chest CT dated 07/13. The heart is enlarged noting atherosclerotic calcification of the thoracic aorta. There is pu lmonary vascular congestion. There are increasing dependent airspace opacities. No large pleural effu [place] or pneumothorax is seen. The bony thorax is grossly intact. Chronic deformity and postsurgical c hange is seen in the right proximal humerus. IMPRESSION: 1. Cardiomegaly with pulmonary vascular congestion. 2. There are increasing dependent airspace opacities which could represent progressive atelectasis. C orrelate clinically for evidence of a superimposed pneumonia/aspiration pneumonitis. Radiographic fol low-up to resolution is recommended. ACT 112: Negative or not required by law. Electronically signed by: Otto Griffin M.D. 08/05/2024 11:49 AM
[2024-08-05 12:24] LABS: Adenovirus PCR Not Detected (NotDetected); Bordetella parapertussis PCR Not Detected (NotDetected); Bordetella pertussis PCR Not Detected (NotDetected); Chlamydia pneumoniae PCR Not Detected (NotDetected); Coronavirus 229E PCR Not Detected (NotDetected); Coronavirus CoV-2 (COVID19)PCR Not Detected (NotDetected); Coronavirus HKU1 PCR Not Detected (NotDetected); Coronavirus NL63 PCR Not Detected (NotDetected); Coronavirus OC43PCR Not Detected (NotDetected); Human Metapneumovirus PCR Not Detected (NotDetected); Influenza A PCR Not Detected (NotDetected); Influenza B PCR Not Detected (NotDetected); Mycoplasma pneumoniae PCR Not Detected (NotDetected); Parainfluenza Virus 1 PCR Not Detected (NotDetected); Parainfluenza Virus 2 PCR Not Detected (NotDetected); Parainfluenza Virus 3 PCR Not Detected (NotDetected); Parainfluenza Virus 4 PCR Not Detected (NotDetected); Respiratory Syncytial VirusPCR Not Detected (NotDetected); Rhinovirus/Enterovirus PCR Not Detected (NotDetected)
--- NOTE | 2024-08-05 13:23 | Emergency Department Note ---
Impression & Plan Acute on chronic hypoxic respiratory failure, Paroxysmal atrial fibrillation, Abscess of chest wall, Acute on chronic heart failure with preserved ejection fraction ED Provider Note NAME: VIV FOLEY AGE: 88 SEX: F : 1935 ARRIVES VIA: Walk-In INFORMANT: Patient ED PROVIDER(S): Deshaun Velarde MD CHIEF COMPLAINT: Shortness of breath, fever PLAN: Disposition: Admit MEDICAL DECISION MAKING: The patient is a pleasant 88-year-old woman with a past medical history of COPD, chronic respiratory failure with hypoxia on 2 L home oxygen, CHF, hypertension, hyperlipidemia, TIA, diabetes, paroxysmal atrial fibrillation on warfarin who presents to the emergency department via walk-in accompanied by family for evaluation of worsening shortness of breath with cough and congestion and clear productive sputum with development of fever over the past couple of days in setting of admission to this facility from 08/01-08/03 for treatment of chest wall abscess/cellulitis, status post I&D and acute on chronic respiratory failure secondary to CHF and suspected aspiration. They deny nausea or vomiting. Patient denies any urinary symptoms. The patient does feel she has gained. Since her discharge and has increased weight. Per review of records it appears she is up 5 kg from her discharge weight. On evaluation the patient is in no acute distress, febrile to 37.6 with heart rate in the 100s and blood pressure 90s/50s with respiratory rate in the 30s and O2 saturation 93% on 3 L nasal cannula. Patient appears hypervolemic. Lungs with mild rhonchi bilateral mid to lower lung seymour. EKG without overt acute ischemia. Chest x-ray demonstrates vascular congestion with increasing dependent airspace opacities which may reflect atelectasis though superimposed pneumonia/aspiration pneumonitis is within the differential. WBC within normal limits. H/H within normal limits. Platelets similar to prior. INR is subtherapeutic at 1.7. Chemistry without metabolic acidosis. Magnesium 1.6. LFTs unremarkable. High-sensitivity troponin 10.6, within normal limits. Lipase not elevated. Procalcitonin is not elevated. UA without evidence of infection. Respiratory BioFire was negative. Given the patient's shortness of breath with increased oxygen requirement and fever patient and family agree with plan for admission for further management. Suspect primary component of hypervolemia/CHF and so IV Lasix initiated. Given no leukocytosis and procalcitonin within normal limits will defer decision for antibiotics to admission team. Case was discussed with Coleen Hardwick PAC with Dr. Garcia [facility] hospitalist, who will evaluate the patient for admission. Further management per admitting team. Triage Nursing notes reviewed and agree them. Prior/external medical records reviewed Vital Signs: reviewed Differential diagnosis: Viral syndrome, otitis, pharyngitis, pneumonia, influenza, meningitis, urinary tract infection, sepsis, bacteremia, as well as other pathologies. ER treatment provided: See below. Diagnostics interpreted by me: ECG: Atrial fibrillation with RVR, 103 bpm, no overt ST elevation or depression, QTc 413, QRS 76. Cardiac Monitoring: An order for continuous cardiac monitoring was placed and demonstrated Atrial fibrillation with RVR, 103 bpm, no ectopy. Laboratory studies: See below Imaging studies: See below Consultation(s): Case was discussed with Coleen Hardwick PAC [facility], who will evaluate the patient for admission. HPI: The patient is a pleasant 88-year-old woman with a past medical history of COPD, chronic respiratory failure with hypoxia on 2 L home oxygen, CHF, hypertension, hyperlipidemia, TIA, diabetes, paroxysmal atrial fibrillation on warfarin who presents to the emergency department via walk-in accompanied by family for evaluation of worsening shortness of breath with cough and congestion and clear productive sputum with development of fever over the past couple of days in setting of admission to this facility from 08/01-08/03 for treatment of chest wall abscess/cellulitis, status post I&D and acute on chronic respiratory failure secondary to CHF and suspected aspiration. They deny nausea or vomiting. Patient denies any urinary symptoms. The patient does feel she has gained. Since her discharge and has increased weight. Per review of records it appears she is up 5 kg from her discharge weight. ROS: See above HPI for pertinent positives & negatives. A total of 10 systems reviewed and were otherwise negative. VITALS:See Below PHYSICAL EXAMINATION: GENERAL: Awake, alert, acute on chronically ill -appearing, in no distress HENT: Normocephalic, atraumatic. Oropharynx unremarkable. EYES: Normal conjunctiva. Sclera non-icteric. NECK: Supple. No nuchal rigidity. FROM. Mild JVD. RESPIRATORY: Mild rhonchi bilateral mid to lower lung seymour.. CARDIAC: Regular rate, normal rhythm. Extremities warm and well perfused. Pulses equal. ABDOMEN: Soft, non-distended. Mild anasarca. No tenderness to palpation. No rebound or guarding. No masses. MUSCULOSKELETAL: Chest examination reveals no tenderness. Small 1 cm anterior chest wall wound from recent I&D with scant purulence and otherwise no significant surrounding erythema, induration, warmth tenderness or crepitus. The back is symmetrical on inspection without obvious abnormality. There is no CVA tenderness to palpation. No joint edema. LOWER EXTREMITIES: Calves are equal size bilaterally and non-tender. 1+ BLE edema. No discoloration. NEURO: Normal sensorium. No sensory or motor deficits noted. SKIN: No rash or jaundice noted. Deshaun Velarde MD Past Med/Surg History Problem List (Updated 08/06/24 @ 21:11 by Deshaun Velarde MD) Acute on chronic heart failure with preserved ejection fraction (Acute) Permanent atrial fibrillation Chronic heart failure with preserved ejection fraction Acute and chronic respiratory failure Abscess of chest wall (Acute) Hypoxia (Acute) Severe sepsis (Acute) Acute on chronic hypoxic respiratory failure (Acute) Cellulitis of chest wall Abscess of chest wall Aortic stenosis, mild Aspiration into airway History of pulmonary embolism Paroxysmal atrial fibrillation (Acute) Dysphagia Food impaction of esophagus Respiratory failure Hypoxia (Acute) Acute GI bleeding (Acute) Supratherapeutic INR (Acute) Abscess of breast, right (Acute) Abscess DVT prophylaxis Coagulopathy Upper GI bleed Hyperlipidemia Hypertension History of DVT (deep vein thrombosis) History of TIA (transient ischemic attack) DM type 2 (diabetes mellitus, type 2) Medical History (Updated 08/06/24 @ 21:11 by Deshaun Velarde MD) History of uterine cancer Diabetic neuropathy longterm current use of anticoagulant COPD with asthma Surgical History History of cholecystectomy History of back surgery History of tubal ligation History of hysterectomy History of cataract surgery History of total left knee replacement History of total right knee replacement Family History Mother Heart disease Social History Smoking Status: Never smoker Tobacco Type: Cigarettes Hx Alcohol Use: No Hx Substance Use: No Preferred Language: Yi Communication Ability: Effective Communication Ability Comment: hearing deficit [employer] Consultant Required: No Beliefs That Will Affect Care: None marital status: / Current Living Situation: Family Current Living Situation Comment: lives with daughter current occupational status: retired Feels Safe at Home: Yes Safety Concerns: Feels Safe At This Time Assistive Devices: Lift Chair, Oxygen - at Night and Walker Allergies Allergies Allergy/AdvReac Type Severity Reaction Status Date / Time vancomycin Allergy Severe ANAPHYLAXIS Verified 05/30/24 15:17 adhesive Allergy Intermediate RED AND Verified 05/30/24 15:17 ITCHY SKIN latex Allergy Intermediate Rash Verified 05/30/24 15:17 Penicillins Allergy Intermediate SWELLING Verified 08/01/24 15:01 PER GMG lisinopril AdvReac Intermediate Cough Verified 05/30/24 15:17 prednisone AdvReac Intermediate INCREASED Verified 05/30/24 15:17 HER RECTAL BLEEDING Home Meds Home Medications Medication Instructions Recorded Confirmed acetaminophen 500 mg tablet 1,000 mg PO Q6H PRN Pain 06/06/23 08/05/24 (Tylenol Extra Strength) albuterol sulfate 90 mcg/actuation 2 puff inhalation Q4 PRN Shortness 06/06/23 08/05/24 aerosol inhaler Of Breath Or Wheezing atorvastatin 10 mg tablet 10 mg PO HS 06/06/23 08/05/24 gabapentin 300 mg capsule 300 mg PO UD 06/06/23 08/05/24 lorazepam 1 mg tablet 1 mg PO HS PRN ANXIETY/SLEEP 06/06/23 08/05/24 losartan 25 mg tablet 25 mg PO DAILY 06/06/23 08/05/24 metformin 500 mg tablet,extended 500 mg PO BIDM 06/06/23 08/05/24 release 24 hr solifenacin 5 mg tablet 5 mg PO QAM 06/06/23 08/05/24 vit C 250 mg-vit E 90 mg-zinc 40 1 tab PO BIDM 06/06/23 08/05/24 mg-copper 1 ur-dppbtp-btpwgm capsule (PreserVision AREDS-2) warfarin 5 mg tablet 5 mg PO SUTUWETHFRSA@1600 06/06/23 08/05/24 fluticasone fur. 200 mcg-umeclid 1 inh inhalation DAILY 05/30/24 08/05/24 62.5 mcg-vilant 25 mcg inhalat.powder (Trelegy Ellipta) loperamide 2 mg capsule 2 mg PO DIRECTED PRN Diarrhea 05/30/24 08/05/24 nystatin 100,000 unit/gram topical 1 applic topical BID PRN ABD FOLDS 05/30/24 08/05/24 powder (Nyamyc) NEEDED sulfamethoxazole 800 1 tab PO BID 05/30/24 08/05/24 mg-trimethoprim 160 mg tablet triamcinolone acetonide 0.1 % 1 applic topical BID PRN SKIN 05/30/24 08/05/24 topical cream IRRITATION NEEDED warfarin 2.5 mg tablet 2.5 mg PO MO@1600 08/01/24 08/05/24 fluticasone fur. 200 mcg-umeclid 1 inh inhalation DAILY 08/05/24 08/05/24 62.5 mcg-vilant 25 mcg inhalat.powder (Trelegy Ellipta) Previous Rx's Medication Instructions Recorded furosemide 20 mg tablet 40 mg (2 x 20 mg) PO DAILY #0 tabs 06/02/24 L.acidop,casei,lactis,rham-B.lact,minesh 1 cap PO DAILY 10 days #10 caps 08/03/24 625 mg (10 billion cell) capsule (Advanced Probiotic) magnesium chloride 64 mg 64 mg PO BID #30 tabs 08/03/24 (magnesium chloride) tablet,delayed release (Mag 64) Results & Data (ED) Vital Signs Vital Signs - 24 hr 08/05/24 10:45 08/05/24 11:04 08/05/24 11:04 Temperature 37.6 C H Temperature Source Oral Pulse Rate 106 H Pulse Rate [Apical] 97 H Respiratory Rate 30 H 30 H Blood Pressure 97/56 L Blood Pressure [Right Arm] 180/115 H Blood Pressure Mean 69 Blood Pressure Mean [Right Arm] 136 Pulse Oximetry 93 94 94 Oxygen Delivery Method Nasal Cannula Room Air Nasal Cannula Oxygen Flow Rate 3 4 4 Sepsis Recent Fever Within 48 Hours No Sepsis New/Unexplained Change in Mental Status N/A Sepsis Action Taken by Nursing Adv Provider Notified 08/05/24 11:19 08/05/24 13:00 Temperature Temperature Source Pulse Rate 95 H Pulse Rate [Apical] 73 Respiratory Rate 20 Blood Pressure Blood Pressure [Right Arm] 158/71 H Blood Pressure Mean Blood Pressure Mean [Right Arm] 100 Pulse Oximetry 96 Oxygen Delivery Method Nasal Cannula Oxygen Flow Rate 4 Sepsis Recent Fever Within 48 Hours Sepsis New/Unexplained Change in Mental Status Sepsis Action Taken by Nursing Laboratory Data 08/06/24 05:20 08/06/24 05:20 Lab Results 08/05/24 08/05/24 Range/Units 10:57 11:10 WBC 6.98 (4.8-10.8) K/ul RBC 4.22 (4.20-5.40) M/uL Hgb 12.5 (12.0-16.0) g/dl Hct 39.4 (37.0-47.0) % MCV 93.4 (80.0-100.0) fL MCH 29.6 (25.0-34.0) pg MCHC 31.7 L (32.0-36.0) g/dL RDW Std Deviation 48.7 H (36.4-46.3) fL RDW Coeff of Ata 14.2 (11.5-14.5) % Plt Count 111 L (130-400) K/uL MPV 10.7 (9.4-12.4) fL Immature Gran % (Auto) 0.7 % Neut % (Auto) 79.9 % Lymph % (Auto) 6.4 % [place] % (Auto) 12.6 % Eos % (Auto) 0.0 % Baso % (Auto) 0.4 % Neut # (Auto) 5.57 (1.40-6.50) K/uL Lymph # (Auto) 0.45 L (1.20-3.40) K/uL [place] # (Auto) 0.88 H (0.11-0.59) K/uL Eos # (Auto) 0.00 (0.00-0.50) K/uL Baso # (Auto) 0.03 (0.00-0.20) K/uL Immature Gran # (Auto) 0.05 (0.01-0.20) K/uL PT 17.9 H (9.0-12.0) Seconds INR 1.7 H (0.9-1.1) Sodium 135 L (136-145) mmol/L Potassium 4.5 (3.5-5.1) mmol/L Chloride 99 (98-107) mmol/L Carbon Dioxide 27 (21-32) mmol/L Anion Gap 9 (3-11) BUN 21 (6-23) mg/dl Creatinine 1.14 (0.6-1.2) mg/dl Est Cr Clr Drug Dosing 43.7 ml/min Est GFR ( Amer) 49.4 ml/min Est GFR (Non-Af Amer) 42.6 ml/min BUN/Creatinine Ratio 18.4 (10-20) Glucose 208 H (70-99(Fasting)) mg/dl Calcium 9.1 (8.6-10.3) mg/dl Magnesium 1.6 L (1.7-2.4) mg/dl Total Bilirubin 0.7 (0.2-1.0) mg/dl AST 24 (13-39) U/L ALT 18 (7-52) U/L Alkaline Phosphatase 78 (34-104) U/L Troponin I High Sens 10.6 (0-14) pg/ml Total Protein 7.2 (6.0-8.3) gm/dl Albumin 3.9 (3.4-5.0) gm/dl Globulin 3.3 (2.5-4.0) gm/dl Albumin/Globulin Ratio 1.2 (0.9-2) Lipase 18 (11-82) U/L Procalcitonin 0.09 (0-0.5) ng/ml Adenovirus (PCR) Not Detected (NotDetected) B. pertussis DNA (PCR) Not Detected (NotDetected) B.parapertussis DNA PCR Not Detected (NotDetected) C. pneumoniae DNA (PCR) Not Detected (NotDetected) Coronavirus OC43 (PCR) Not Detected (NotDetected) Coronavirus HKU1 (PCR) Not Detected (NotDetected) Coronavirus 229E (PCR) Not Detected (NotDetected) SARS-CoV-2 (PCR) Not Detected (NotDetected) Coronavirus NL63 (PCR) Not Detected (NotDetected) Human Metapneumovir PCR Not Detected (NotDetected) Influenza Type A (PCR) Not Detected (NotDetected) Influenza Type B (PCR) Not Detected (NotDetected) M. pneumoniae (PCR) Not Detected (NotDetected) Parainfluenza 1 (PCR) Not Detected (NotDetected) Parainfluenza 2 (PCR) Not Detected (NotDetected) Parainfluenza 3 (PCR) Not Detected (NotDetected) Parainfluenza 4 (PCR) Not Detected (NotDetected) RSV (PCR) Not Detected (NotDetected) Entero/Rhino (PCR) Not Detected (NotDetected) Administered Medications Atorvastatin Calcium (Atorvastatin 10 Mg Tab) 10 mg PO HS MARIANELA Stop: 09/04/24 20:59 Last Admin: 08/05/24 21:14 Dose: 10 mg Documented By: NOAM Doxycycline Hyclate (Doxycycline Hyclate 100 Mg Cap) 100 mg PO BID MARIANELA Stop: 08/12/24 20:59 Last Admin: 08/06/24 07:38 Dose: 100 mg Documented By: Admin: 08/05/24 20:56 Dose: 100 mg Documented By: NOAM Fluticasone Furoate (Fluticasone Furoate 200mcg 14 Puffs/Inhaler) 1 puffs INH DAILY MARIANELA Stop: 09/05/24 08:59 Last Admin: 08/06/24 07:39 Dose: 1 puffs Documented By: ADONAY Furosemide (Furosemide 40 Mg/4 Ml Vial) 40 mg IV BID17 MARIANELA Stop: 09/05/24 08:59 Last Admin: 08/06/24 17:45 Dose: 40 mg Documented By: Admin: 08/06/24 07:40 Dose: 40 mg Documented By: ADONAY Gabapentin (Gabapentin 300 Mg Cap) 300 mg PO DAILY MARIANELA Stop: 09/05/24 08:59 Last Admin: 08/06/24 07:38 Dose: 300 mg Documented By: ADONAY Gabapentin (Gabapentin 300 Mg Cap) 600 mg PO HS MARIANELA Stop: 09/04/24 20:59 Last Admin: 08/05/24 20:57 Dose: 600 mg Documented By: NOAM Ertapenem 1,000 mg/ Syringe 10 mls @ 2 mls/min IV Q24H MARIANELA Stop: 08/12/24 15:59 Last Admin: 08/06/24 17:45 Dose: 2 mls/min Documented By: Admin: 08/05/24 15:49 Dose: 2 mls/min Documented By: JOHN Insulin Aspart (Insulin Aspart Per Unit Charge) 0 units SC ACHS MARIANELA Stop: 09/04/24 16:29 Last Admin: 08/06/24 17:45 Dose: 7 units Documented By: ADONAY Co-signed By: GEMA Admin: 08/06/24 12:43 Dose: 9 units Documented By: ADONAY Co-signed By: JEANMARIE Admin: 08/06/24 09:05 Dose: 5 units Documented By: ADONAY Co-signed By: GEMA Admin: 08/05/24 20:50 Dose: Not Given Documented By: Admin: 08/05/24 17:59 Dose: 4 units Documented By: JOHN Co-signed By: KYM Lactobacillus Acidophilus (Advanced Probiotic 625 Mg Capsule) 1,250 mg PO DAILY MARIANELA Stop: 09/05/24 08:59 Last Admin: 08/06/24 07:38 Dose: 1,250 mg Documented By: ADONAY Levalbuterol HCl (Levalbuterol Hcl 0.63 Mg/3 Ml Neb) 0.63 mg NEB Q6R MARIANELA; Protocol Stop: 09/04/24 15:06 Last Admin: 08/06/24 20:14 Dose: 0.63 mg Documented By: Admin: 08/06/24 13:00 Dose: 0.63 mg Documented By: Admin: 08/06/24 07:23 Dose: 0.63 mg Documented By: Admin: 08/06/24 01:18 Dose: Not Given Documented By: NOAM(2) Admin: 08/05/24 19:09 Dose: 0.63 mg Documented By: NOAM(2) Admin: 08/05/24 15:45 Dose: Not Given Documented By: SHILPA Losartan Potassium (Losartan Potassium 25 Mg Tab) 25 mg PO DAILY MARIANELA Stop: 09/05/24 08:59 Last Admin: 08/06/24 07:38 Dose: 25 mg Documented By: ADONAY Magnesium Chloride (Magnesium Chloride W/Calcium 64mg Delayed Rel Tab) 64 mg PO BID MARIANELA Stop: 09/04/24 20:59 Last Admin: 08/06/24 07:41 Dose: 64 mg Documented By: Admin: 08/05/24 20:58 Dose: 64 mg Documented By: NOAM Multivitamins/Minerals (Cerovite Adv Formula Tab) 1 tab PO DAILY MARIANELA Stop: 09/05/24 08:59 Last Admin: 08/06/24 07:38 Dose: 1 tab Documented By: ADONAY Oxybutynin Chloride (Oxybutynin Chloride Xl 5 Mg Tabcr) 5 mg PO QAM MARIANELA Stop: 09/05/24 08:59 Last Admin: 08/06/24 07:37 Dose: 5 mg Documented By: ADONAY Umeclidinium/Vilanterol (Umeclidinium/Vilanterol 62.5/25mcg 7 Puffs/Inhaler) 1 puffs INH DAILY MARIANELA Stop: 09/05/24 08:59 Last Admin: 08/06/24 07:41 Dose: 1 puffs Documented By: ADONAY Warfarin Sodium (Warfarin Sod 5 Mg Tab) 5 mg PO [id number]@1600 MARIANELA Stop: 09/05/24 15:59 Last Admin: 08/06/24 17:45 Dose: 5 mg Documented By: ADONAY Discontinued Medications Furosemide (Furosemide 40 Mg/4 Ml Vial) 40 mg IV ONE ONE Stop: 08/05/24 13:20 Last Admin: 08/05/24 14:20 Dose: 40 mg Documented By: SALINAS Heparin Sodium (Porcine) (Heparin Sod 5,000 Unit/0.5 Ml Vial) 5,000 units SQ ONE ONE Stop: 08/05/24 22:01 Last Admin: 08/05/24 21:04 Dose: 5,000 units Documented By: NOAM Acetaminophen (Ofirmev) 1,000 mg in 100 mls @ 400 mls/hr IV NOW STA Stop: 08/05/24 13:37 Last Infusion: 08/05/24 14:44 Dose: Infused Documented By: Admin: 08/05/24 14:20 Dose: 400 mls/hr Documented By: SALINAS Magnesium Sulfate/Dextrose (Magnesium Sulfate / D5w) 1 gm in 100 mls @ 50 mls/hr IV ONE ONE Stop: 08/05/24 16:11 Last Infusion: 08/05/24 17:38 Dose: Infused Documented By: Admin: 08/05/24 15:38 Dose: 50 mls/hr Documented By: JOHN Imaging Data Radiologist's Impression: Chest X-Ray 08/05/24 11:01 SINGLE VIEW CHEST CLINICAL HISTORY: Atypical chest pain FINDINGS: An AP, portable, upright chest radiograph is compared to chest x-ray and chest CT dated 08/01/2024. The heart is enlarged noting atherosclerotic calcification of the thoracic aorta. There is pulmonary vascular congestion. There are increasing dependent airspace opacities. No large pleural effusion or pneumothorax is seen. The bony thorax is grossly intact. Chronic deformity and postsurgical change is seen in the right proximal humerus. IMPRESSION: 1. Cardiomegaly with pulmonary vascular congestion. 2. There are increasing dependent airspace opacities which could represent progressive atelectasis. Correlate clinically for evidence of a superimposed pneumonia/aspiration pneumonitis. Radiographic follow-up to resolution is recommended. ACT 112: Negative or not required by law. Electronically signed by: Otto Griffin M.D. 08/05/2024 11:49 AM Discharge Plan Visit Data Chief Complaint: Shortness of Breath/Dyspnea Stated Complaint: SOB ED Provider: Deshaun Velarde Discharge Problem: Acute on chronic hypoxic respiratory failure, Paroxysmal atrial fibrillation, Abscess of chest wall, Acute on chronic heart failure with preserved ejection fraction Patient Disposition: Admitted As Inpatient Discharge Instructions Interventions: ED Discharge Assessment Last Done: 08/05/24 14:57
--- NOTE | 2024-08-05 13:38 | History & Physical Report ---
Date of Service August 05, 2024 Assessment & Plan (1) Acute on chronic hypoxic respiratory failure: (2) Acute on chronic heart failure with preserved ejection fraction: (3) Paroxysmal atrial fibrillation: (4) Abscess of chest wall: Plan This is an 88-year-old female with PMH of type 2 diabetes, hyperlipidemia with statin intolerance, COPD, chronic hypoxic resp failure on 2L NC O2 with exertion and HS, atrial fibrillation on Coumadin, hypertension, history of TIA, benign essential tremor, history of uterine cancer and other medical problems listed below who presents from home secondary to worsening SOB and fever. Acute on chronic hypoxic respiratory failure, baseline 2L Acute on chronic HFpEF Possible COPD Exacerbation Possible superimposed PNA SIRS Likely multifactorial in setting of decompensated CHF, possible COPD Exacerbation and possible PNA admit to tele IV Lasix BID, daily weights, strict intake and output, low salt diet Weight up form d/c 112kg --> 117.8kg last echo 06/03: EF 60-65%, severe biatrial enlargement, mild aortic valvular stenosis, calcified mitral apparatus will schedule nebs for COPD exac IV Ertapenem given multiple allergies and attempt to avoid excessive fluids hold on steroids in setting of CHF - can consider inhaled budesonide if no improvement encourage incentive spirometry, continue O2 supplementation, wean to keep 02 between 88-92% Chest wall abscess/cellulitis Sebaceous cyst pt with dressing changes, will consult surgery for eval as pt reporting drainage Hypomagnesemia mag 1.6 , will give 1g mag sulfate Paroxysmal A fib initially tachycardic, now rate WNL, not on rate/rhythm control Continue Coumadin for anticoagulation Monitor INR 1.7 today , will give 1 x dose of SQ Heparin this evening, re eval tomorrow need for SQ heparin until INR therapeutic she received 5mg this a.m. DM II A1c 7.2 in May 2024 Hold home agents SSI while in-patient BSG AC HS HTN Continue losartan Monitor BP CKD III Monitor renal function Avoid nephrotoxic agents as able Cr stable Morbid obesity BMI 41 DVT Px: Coumadin Code status: DNR/DNI PCP: Aure Dispo: admit to med tele Pt was seen and examined in collaboration with Dr. Garcia, please see addendum A total of 62 minutes was spent coordinating, documenting, and providing care for this patient excluding time spent in the performance of separately billed services. This included personally viewing all current laboratories and imaging studies, medication reconciliation, outpatient chart review, and discussion with specialists. History of Present Illness Chief Complaint: Increased SOB and fever. Primary Care Provider: Duong Looney MD This is an 88-year-old female with PMH of type 2 diabetes, hyperlipidemia with statin intolerance, COPD, chronic hypoxic resp failure on 2L NC O2 with exertion and HS, atrial fibrillation on Coumadin, hypertension, history of TIA, benign essential tremor, history of uterine cancer and other medical problems listed below who presents from home secondary to worsening SOB and fever. History was obtained from patient and family at bedside. She was seen by home health nurse today and was noted to have a fever of 101. It was also noted that her oxygen saturation was low and was recommended family bring her to ER. Pt reports increased SOB with exertion, productive cough with white/clear sputum, increased abd distension. She feels some abd discomfort, "as if it is being stretched." Family reports drainage from her chest wound. She has been taking her medications as normal. She had a normal bowel movement this morning. Pt denies dizziness, lightheaded, change in vision, headache, chest pain, hemoptysis, n/v/d. She has been drinking normal. Per family at bedside she was drinking 1.5 cups of the [facility] cups. She took her trelegy inhaler the past 2 days. In ED pt had increased O2 requirement saturating at 96 % on 4L. She did have a mild elevated temp at 37.6. She did meet SIRS criteria in ED 2/2 tachycardia and tachypnea. CXR showed Cardiomegaly with pulmonary vascular congestion.2. There are increasing dependent airspace opacities which could represent progressive atelectasis. Correlate clinically for evidence of a superimposed pneumonia/aspiration pneumonitis. Radiographic follow-up to resolution is recommended. ED provider ordered furosemide. Allergies Allergy/AdvReac Type Severity Reaction Status Date / Time vancomycin Allergy Severe ANAPHYLAXIS Verified 05/30/24 15:17 adhesive Allergy Intermediate RED AND Verified 05/30/24 15:17 ITCHY SKIN latex Allergy Intermediate Rash Verified 05/30/24 15:17 Penicillins Allergy Intermediate SWELLING Verified 08/01/24 15:01 PER GMG lisinopril AdvReac Intermediate Cough Verified 05/30/24 15:17 prednisone AdvReac Intermediate INCREASED Verified 05/30/24 15:17 HER RECTAL BLEEDING Home Medications Medication Instructions Recorded Confirmed Type acetaminophen 500 mg tablet 1,000 mg PO Q6H PRN Pain 06/06/23 08/05/24 History (Tylenol Extra Strength) albuterol sulfate 90 mcg/actuation 2 puff inhalation Q4 PRN Shortness 06/06/23 08/05/24 History aerosol inhaler Of Breath Or Wheezing atorvastatin 10 mg tablet 10 mg PO HS 06/06/23 08/05/24 History gabapentin 300 mg capsule 300 mg PO UD 06/06/23 08/05/24 History lorazepam 1 mg tablet 1 mg PO HS PRN ANXIETY/SLEEP 06/06/23 08/05/24 History losartan 25 mg tablet 25 mg PO DAILY 06/06/23 08/05/24 History metformin 500 mg tablet,extended 500 mg PO BIDM 06/06/23 08/05/24 History release 24 hr solifenacin 5 mg tablet 5 mg PO QAM 06/06/23 08/05/24 History vit C 250 mg-vit E 90 mg-zinc 40 1 tab PO BIDM 06/06/23 08/05/24 History mg-copper 1 rx-[id number] capsule (PreserVision AREDS-2) warfarin 5 mg tablet 5 mg PO SUTUWETHFRSA@1600 06/06/23 08/05/24 History fluticasone fur. 200 mcg-umeclid 1 inh inhalation DAILY 05/30/24 08/05/24 History 62.5 mcg-vilant 25 mcg inhalat.powder (Trelegy Ellipta) loperamide 2 mg capsule 2 mg PO DIRECTED PRN Diarrhea 05/30/24 08/05/24 History nystatin 100,000 unit/gram topical 1 applic topical BID PRN ABD FOLDS 05/30/24 08/05/24 History powder (Nyamyc) NEEDED sulfamethoxazole 800 1 tab PO BID 05/30/24 08/05/24 History mg-trimethoprim 160 mg tablet triamcinolone acetonide 0.1 % 1 applic topical BID PRN SKIN 05/30/24 08/05/24 History topical cream IRRITATION NEEDED furosemide 20 mg tablet 40 mg (2 x 20 mg) PO DAILY #0 tabs 06/02/24 08/05/24 Rx warfarin 2.5 mg tablet 2.5 mg PO MO@1600 08/01/24 08/05/24 History L.acidop,casei,lactis,rham-B.lact,minesh 1 cap PO DAILY 10 days #10 caps 08/03/24 08/05/24 Rx 625 mg (10 billion cell) capsule (Advanced Probiotic) magnesium chloride 64 mg 64 mg PO BID #30 tabs 08/03/24 08/05/24 Rx (magnesium chloride) tablet,delayed release (Mag 64) fluticasone fur. 200 mcg-umeclid 1 inh inhalation DAILY 08/05/24 08/05/24 History 62.5 mcg-vilant 25 mcg inhalat.powder (Trelegy Ellipta) Past Med/Surg History Problem List (Updated 08/05/24 @ 15:57 by Deshaun Velarde MD) Acute and chronic respiratory failure Abscess of chest wall (Acute) Hypoxia (Acute) Severe sepsis (Acute) Acute on chronic hypoxic respiratory failure (Acute) Cellulitis of chest wall Abscess of chest wall Aortic stenosis, mild Aspiration into airway History of pulmonary embolism Paroxysmal atrial fibrillation Dysphagia Food impaction of esophagus Respiratory failure Hypoxia (Acute) Acute GI bleeding (Acute) Supratherapeutic INR (Acute) Abscess of breast, right (Acute) Abscess DVT prophylaxis Coagulopathy Upper GI bleed Hyperlipidemia Hypertension History of DVT (deep vein thrombosis) History of TIA (transient ischemic attack) DM type 2 (diabetes mellitus, type 2) Medical History (Updated 08/05/24 @ 15:57 by Deshaun Velarde MD) History of uterine cancer Diabetic neuropathy MCC current use of anticoagulant COPD with asthma Surgical History History of cholecystectomy History of back surgery History of tubal ligation History of hysterectomy History of cataract surgery History of total left knee replacement History of total right knee replacement Family History Mother Heart disease Social History Smoking Status: Never smoker Tobacco Type: Cigarettes Hx Alcohol Use: No Hx Substance Use: No Preferred Language: Moldovan Communication Ability: Effective Communication Ability Comment: hearing deficit Solution Strategist Required: No Beliefs That Will Affect Care: None marital status: / Current Living Situation: Family Current Living Situation Comment: lives with daughter current occupational status: retired Feels Safe at Home: Yes Safety Concerns: Feels Safe At This Time Assistive Devices: Denture - Lower, Glasses, Hearing Aid - Left and Walker Review of Systems Review of Systems: All systems reviewed & are unremarkable except as noted in HPI & below Physical Exam Physical Exam: please refer to Dr. Garcia addendum for physical exam findings. Results & Data Results & Data Vital Signs (Past 12 Hours) Vital Signs Temp Pulse Pulse Resp BP BP Pulse Ox 08/05/24 13:00 73 20 158/71 H 96 08/05/24 11:19 95 H 08/05/24 11:04 97 H 30 H 180/115 H 94 08/05/24 11:04 94 08/05/24 10:45 37.6 C H 106 H 30 H 97/56 L 93 O2 Del Method O2 Flow Rate 08/05/24 13:00 Nasal Cannula 4 08/05/24 11:19 08/05/24 11:04 Nasal Cannula 4 08/05/24 11:04 Room Air 4 08/05/24 10:45 Nasal Cannula 3 Laboratory Results I have independently reviewed and interpreted patient's admitting labs including CBC, CMP, PTT, PT/INR, mag and troponin. Diagnostic Findings Chest X-Ray 08/05/24 11:01 SINGLE VIEW CHEST CLINICAL HISTORY: Atypical chest pain FINDINGS: An AP, portable, upright chest radiograph is compared to chest x-ray and chest CT dated 08/01/2024. The heart is enlarged noting atherosclerotic calcification of the thoracic aorta. There is pulmonary vascular congestion. There are increasing dependent airspace opacities. No large pleural effusion or pneumothorax is seen. The bony thorax is grossly intact. Chronic deformity and postsurgical change is seen in the right proximal humerus. IMPRESSION: 1. Cardiomegaly with pulmonary vascular congestion. 2. There are increasing dependent airspace opacities which could represent progressive atelectasis. Correlate clinically for evidence of a superimposed pneumonia/aspiration pneumonitis. Radiographic follow-up to resolution is recommended. ACT 112: Negative or not required by law. Electronically signed by: Otto Griffin M.D. 08/05/2024 11:49 AM ECG Additional Comments: I have independently reviewed and interpreted patient's admitting EKG which revealed: afib 103,no qt prolongation COVID-19 Results Results COVID-19 Adm Lab Results: RBC 4.22 M/uL (4.20-5.40) 08/05/24 WBC 6.98 K/ul (4.8-10.8) 08/05/24 Hgb 12.5 g/dl (12.0-16.0) 08/05/24 Hct 39.4 % (37.0-47.0) 08/05/24 Plt Count 111 K/uL (130-400) L 08/05/24 Neutrophils (%) (Auto) 79.9 % 08/05/24 Lymphocytes (%) (Auto) 6.4 % 08/05/24 Monocytes # (Auto) 0.88 K/uL (0.11-0.59) H 08/05/24 Eosinophils # (Auto) 0.00 K/uL (0.00-0.50) 08/05/24 Neutrophils # (Auto) 5.57 K/uL (1.40-6.50) 08/05/24 Lymphocytes # (Auto) 0.45 K/uL (1.20-3.40) L 08/05/24 Monocytes # (Auto) 0.88 K/uL (0.11-0.59) H 08/05/24 Eosinophils # (Auto) 0.00 K/uL (0.00-0.50) 08/05/24 Basophils # (Auto) 0.03 K/uL (0.00-0.20) 08/05/24 Immature Granulocyte # (Auto) 0.05 K/uL (0.01-0.20) 4 Na 135 mmol/L (136-145) L 08/05/24 K 4.5 mmol/L (3.5-5.1) 08/05/24 Cl 99 mmol/L (98-107) 08/05/24 CO2 27 mmol/L (21-32) 08/05/24 Anion Gap 9 (3-11) 08/05/24 BUN 21 mg/dl (6-23) 08/05/24 Creatinine 1.14 mg/dl (0.6-1.2) 08/05/24 BUN/Creatinine Ratio 18.4 (10-20) 08/05/24 Glucose Level 208 mg/dl (70-99(Fasting)) H 08/05/24 Ca 9.1 mg/dl (8.6-10.3) 08/05/24 Total Bilirubin 0.7 mg/dl (0.2-1.0) 08/05/24 AST/SGOT 24 U/L (13-39) 08/05/24 ALT/SGPT 18 U/L (7-52) 08/05/24 Alkaline Phosphatase 78 U/L (34-104) 08/05/24 Total Protein 7.2 gm/dl (6.0-8.3) 08/05/24 Albumin 3.9 gm/dl (3.4-5.0) 08/05/24 Globulin 3.3 gm/dl (2.5-4.0) 08/05/24 Albumin/Globulin Ratio 1.2 (0.9-2) 08/05/24 Procalcitonin 0.09 ng/ml (0-0.5) 08/05/24 INR 1.7 (0.9-1.1) H 08/05/24 Adenovirus (PCR) Not Detected (NotDetected) 08/05/24 B. parapertussis DNA (PCR) Not Detected (NotDetected) 07/13 04/03 B. pertussis DNA (PCR) Not Detected (NotDetected) 08/05/24 C. pneumoniae DNA (PCR) Not Detected (NotDetected) 4 Coronavirus Type OC43 (PCR) Not Detected (NotDetected) Coronavirus Type HKU1 (PCR) Not Detected (NotDetected) Coronavirus Type 229E (PCR) Not Detected (NotDetected) COVID-19 PCR Not Detected (NotDetected) 08/05/24 Coronavirus Type NL63 (PCR) Not Detected (NotDetected) Human Metapneumovirus (PCR) Not Detected (NotDetected) Influenza Virus Type A (PCR) Not Detected (NotDetected) Influenza Virus Type B (PCR) Not Detected (NotDetected) M. pneumoniae (PCR) Not Detected (NotDetected) 08/05/24 Parainfluenza Type 1 (PCR) Not Detected (NotDetected) 07/13 04/03 Parainfluenza Type 2 (PCR) Not Detected (NotDetected) 07/13 04/03 Parainfluenza Type 3 (PCR) Not Detected (NotDetected) 07/13 04/03 Parainfluenza Type 4 (PCR) Not Detected (NotDetected) 07/13 04/03 RSV (PCR) Not Detected (NotDetected) 08/05/24 Enterovirus/Rhinovirus (PCR) Not Detected (NotDetected) Chest X-Ray 08/05/24 Code Status & VTE Plan Code Status DNR/DNI VTE Prophylaxis Plan VTE Prophylaxis will be ordered: No Supervising Physician Co-Signing Physician Notes Patient is an 88-year-old old female with history of diabetes, hyperlipidemia, COPD, chronic oxygen dependence on 2 L supplemental oxygen, A-fib on Coumadin and other medical problems who was recently treated for sebaceous cyst and CHF presents with history of worsening shortness of breath associated with fever, weight gain, abdominal discomfort. Patient was found to be saturating in 80s as per patient's family and so was brought to ED for further evaluation. Patient also reports having some cough with whitish expectoration. Please review HPI for complete details of presentation. I personally reviewed blood work and imaging studies. Chest x-ray suggestive of pulmonary congestion, atelectasis. Noted subtherapeutic INR 1.7, hypomagnesemia 1.6. Physical Exam: Vitals signs as noted above General Appearance:Obese, no apparent distress, Elderly Head: normocephalic, Atraumatic Eyes: normal inspection, EOMI Neck: supple, Trachea midline Respiratory/Chest: Decreased breath sounds, scant wheezes, crackles, No accessory muscle use Cardiovascular: Irregularly irregular, No murmur, + wound in dressing Abdomen/GI:Soft, Non tender, protuberant,+ abdominal hernia, bowel sounds present Extremities/Musculoskeletal:normal inspection, 1+ B/L LE edema Neurologic/Psych:AAOX3, grossly no focal neurological deficits Skin: normal color, warm Acute on chronic respiratory failure with hypoxia Acute on chronic HFpEF Mild COPD exacerbation Possible pneumonia, SIRS, possible sepsis Sebaceous cyst S/P I&D Hypomagnesemia Subtherapeutic INR Agree with IV Lasix, I's and O's, daily weight Monitor renal function, volume status, cardiology consulted Recent echo reviewed Started on broad-spectrum antibiotics Recent blood, wound cultures negative to date Surgery consulted to evaluate for follow-up Local wound care Replace electrolytes as needed Continue Coumadin, monitor INR I personally interviewed and examined at bedside. Patient's care is coordinated with Coleen Sethi PA-C. I have reviewed the advanced practitioner's documentation, and I agree with plan of care. Please refer to the documentation above for details of patient's presentation and for discussion of other issues. I spent a total [id number] coordinating, documenting, and providing care for this patient excluding time spent in the performance of separately billed services.
[2024-08-05] MEDS: FUROSEMIDE 40 MG/4 ML VIAL IV ONE (14:20)
[2024-08-05] MEDS: ACETAMINOPHEN 1,000 MG/100 ML VIAL IV STA (14:20)
[2024-08-05 14:49] LABS: Appearance Urine Clear (Clear); Bilirubin Urine Negative (Negative); Blood Urine Negative (Negative); Color Urine Yellow; Glucose Urine UA Negative (Negative); Ketones Urine Negative (Negative); Leukocyte Esterase Urine Negative (Negative); Nitrite Urine Negative (Negative); Protein Urine Negative (Negative); Specific Gravity Urine 1.011 (1.000-1.030); Urobilinogen Urine Negative (Negative)
[2024-08-05] MEDS ORDERED: GLUCAGON FOR INJ 1 MG VIAL SQ PRN (15:07)
[2024-08-05] MEDS ORDERED: GLUCOSE 40% GEL 15 GM TUBE PO PRN (15:07)
[2024-08-05] MEDS ORDERED: FAMOTIDINE 20 MG TAB PO PRN (15:07)
[2024-08-05] MEDS ORDERED: POLYETHYLENE (MIRALAX) 17 GM PACK PO PRN (15:07)
[2024-08-05] MEDS ORDERED: CARBOHYDRATES FOR HYPOGLYCEMIA PO PRN (15:07)
[2024-08-05] MEDS ORDERED: DEXTROSE 50% 50 ML SYRINGE IV PRN (15:07)
[2024-08-05] MEDS ORDERED: ONDANSETRON INJ 2 MG/ML 2 ML VIAL IV PRN (15:07)
[2024-08-05] MEDS ORDERED: GLUCOSE 10 TAB/TUBE PO PRN (15:07)
[2024-08-05] MEDS ORDERED: NYSTATIN POWDER 15GM BTL EXT PRN (15:07)
--- NOTE | 2024-08-05 15:09 | Surgery Consultation ---
Date of Consultation August 05, 2024 Assessment & Plan (1) Abscess of chest wall: s/p I&D on previous admission. Cyst contents removed from wound and healthy wound present with no induration or fluctuance. No indication for further drainage at this time. Daily dressing changes by nursing, pain control as needed. History of Present Illness Reason for Consultation: eval chest wall wound Requesting Physician: Dennis Garcia MD Attending Physician: Dennis Garcia MD History of Present Illness Keila franco is a 88 yo female with history of afib on coumadin, pulmonary embolism, DVT, HTN , Hyperlipidemia, COPD, DM type 2, TIA, who was recently admitted here for chest wall cellulitis and abscess s/p I&D in ED and just discharged on 08/03/24. Presented back to ED due to increasing SOB and fever. Our services consulted to evaluate chest wall wound. Packing removed by home health nursing today. Some tenderness in area but no increasing pain or redness. When packing changed looks like more of the cyst comes out with compression of wound edges. Allergies Allergy/AdvReac Type Severity Reaction Status Date / Time vancomycin Allergy Severe ANAPHYLAXIS Verified 05/30/24 15:17 adhesive Allergy Intermediate RED AND Verified 05/30/24 15:17 ITCHY SKIN latex Allergy Intermediate Rash Verified 05/30/24 15:17 Penicillins Allergy Intermediate SWELLING Verified 08/01/24 15:01 PER GMG lisinopril AdvReac Intermediate Cough Verified 05/30/24 15:17 prednisone AdvReac Intermediate INCREASED Verified 05/30/24 15:17 HER RECTAL BLEEDING Home Medications Medication Instructions Recorded Confirmed Type acetaminophen 500 mg tablet 1,000 mg PO Q6H PRN Pain 06/06/23 08/05/24 History (Tylenol Extra Strength) albuterol sulfate 90 mcg/actuation 2 puff inhalation Q4 PRN Shortness 06/06/23 08/05/24 History aerosol inhaler Of Breath Or Wheezing atorvastatin 10 mg tablet 10 mg PO HS 06/06/23 08/05/24 History gabapentin 300 mg capsule 300 mg PO UD 06/06/23 08/05/24 History lorazepam 1 mg tablet 1 mg PO HS PRN ANXIETY/SLEEP 06/06/23 08/05/24 History losartan 25 mg tablet 25 mg PO DAILY 06/06/23 08/05/24 History metformin 500 mg tablet,extended 500 mg PO BIDM 06/06/23 08/05/24 History release 24 hr solifenacin 5 mg tablet 5 mg PO QAM 06/06/23 08/05/24 History vit C 250 mg-vit E 90 mg-zinc 40 1 tab PO BIDM 06/06/23 08/05/24 History mg-copper 1 kb-mnbmko-tufgre capsule (PreserVision AREDS-2) warfarin 5 mg tablet 5 mg PO SUTUWETHFRSA@1600 06/06/23 08/05/24 History fluticasone fur. 200 mcg-umeclid 1 inh inhalation DAILY 05/30/24 08/05/24 History 62.5 mcg-vilant 25 mcg inhalat.powder (Trelegy Ellipta) loperamide 2 mg capsule 2 mg PO DIRECTED PRN Diarrhea 05/30/24 08/05/24 History nystatin 100,000 unit/gram topical 1 applic topical BID PRN ABD FOLDS 05/30/24 08/05/24 History powder (Nyamyc) NEEDED sulfamethoxazole 800 1 tab PO BID 05/30/24 08/05/24 History mg-trimethoprim 160 mg tablet triamcinolone acetonide 0.1 % 1 applic topical BID PRN SKIN 05/30/24 08/05/24 History topical cream IRRITATION NEEDED furosemide 20 mg tablet 40 mg (2 x 20 mg) PO DAILY #0 tabs 06/02/24 08/05/24 Rx warfarin 2.5 mg tablet 2.5 mg PO MO@1600 08/01/24 08/05/24 History L.acidop,casei,lactis,rham-B.lact,minesh 1 cap PO DAILY 10 days #10 caps 08/03/24 08/05/24 Rx 625 mg (10 billion cell) capsule (Advanced Probiotic) magnesium chloride 64 mg 64 mg PO BID #30 tabs 08/03/24 08/05/24 Rx (magnesium chloride) tablet,delayed release (Mag 64) fluticasone fur. 200 mcg-umeclid 1 inh inhalation DAILY 08/05/24 08/05/24 History 62.5 mcg-vilant 25 mcg inhalat.powder (Trelegy Ellipta) Patient History Medical History (Updated 08/05/24 @ 14:24 by Coleen Sethi PA-C) History of uterine cancer Diabetic neuropathy group home current use of anticoagulant COPD with asthma Surgical History History of cholecystectomy History of back surgery History of tubal ligation History of hysterectomy History of cataract surgery History of total left knee replacement History of total right knee replacement Family History Mother Heart disease Social History Smoking Status: Former smoker Tobacco Type: Cigarettes Hx Alcohol Use: No Hx Substance Use: No Preferred Language: Pakistani Communication Ability: Effective Communication Ability Comment: hearing deficit Staff Auditor Required: No Beliefs That Will Affect Care: None marital status: / Current Living Situation: Family Current Living Situation Comment: Lives with daughter current occupational status: retired Feels Safe at Home: Yes Assistive Devices: Glasses, Lift Chair, Oxygen - at Night, Oxygen - Continuous and Walker Review of Systems Review of Systems: All systems reviewed & are unremarkable except as noted in HPI & below Physical Exam Constitutional: + obese, cooperative and comfortable; no acute distress and not ill appearing Chest (Breasts): Additional Comments: Mid chest with wound just inferior to sternal notch with mild surrounding reactive erythema. No induration or fluctuance. There is sebaceous contents in the wound when packing removed. This was easily removed with forceps. Healthy wound with no necrosis. Psychiatric: A+Ox3, euthymic affect Results & Data Vital Signs (Past 12 Hours) Vital Signs Temp Pulse Pulse Resp BP BP Pulse Ox 08/05/24 13:00 73 20 158/71 H 96 08/05/24 11:19 95 H 08/05/24 11:04 97 H 30 H 180/115 H 94 08/05/24 11:04 94 08/05/24 10:45 37.6 C H 106 H 30 H 97/56 L 93 O2 Del Method O2 Flow Rate 08/05/24 13:00 Nasal Cannula 4 08/05/24 11:19 08/05/24 11:04 Nasal Cannula 4 08/05/24 11:04 Room Air 4 08/05/24 10:45 Nasal Cannula 3 Laboratory Results 09/25/24 09/25/24 09/25/24 Range/Units 14:30 14:07 11:10 WBC (4.8-10.8) K/ul RBC (4.20-5.40) M/uL Hgb (12.0-16.0) g/dl Hct (37.0-47.0) % MCV (80.0-100.0) fL MCH (25.0-34.0) pg MCHC (32.0-36.0) g/dL RDW Std Deviation (36.4-46.3) fL RDW Coeff of Ata (11.5-14.5) % Plt Count (130-400) K/uL MPV (9.4-12.4) fL Immature Gran % (Auto) % Neut % (Auto) % Lymph % (Auto) % Bingham % (Auto) % Eos % (Auto) % Baso % (Auto) % Neut # (Auto) (1.40-6.50) K/uL Lymph # (Auto) (1.20-3.40) K/uL Bingham # (Auto) (0.11-0.59) K/uL Eos # (Auto) (0.00-0.50) K/uL Baso # (Auto) (0.00-0.20) K/uL Immature Gran # (Auto) (0.01-0.20) K/uL PT (9.0-12.0) Seconds INR (0.9-1.1) Sodium (136-145) mmol/L Potassium (3.5-5.1) mmol/L Chloride (98-107) mmol/L Carbon Dioxide (21-32) mmol/L Anion Gap (3-11) BUN (6-23) mg/dl Creatinine (0.6-1.2) mg/dl Est Cr Clr Drug Dosing ml/min Est GFR ( Amer) ml/min Est GFR (Non-Af Amer) ml/min BUN/Creatinine Ratio (10-20) Glucose (70-99(Fasting)) mg/dl Calcium (8.6-10.3) mg/dl Magnesium (1.7-2.4) mg/dl Total Bilirubin (0.2-1.0) mg/dl AST (13-39) U/L ALT (7-52) U/L Alkaline Phosphatase (34-104) U/L Troponin I High Sens (0-14) pg/ml B-Natriuretic Peptide 221 H (0-100) pg/ml Total Protein (6.0-8.3) gm/dl Albumin (3.4-5.0) gm/dl Globulin (2.5-4.0) gm/dl Albumin/Globulin Ratio (0.9-2) Lipase (11-82) U/L Procalcitonin (0-0.5) ng/ml Urine Color Yellow Urine Appearance Clear (Clear) Urine pH 5.0 (4.5-7.5) Ur Specific Edison 1.011 (1.000-1.030) Urine Protein Negative (Negative) Urine Glucose (UA) Negative (Negative) Urine Ketones Negative (Negative) Urine Blood Negative (Negative) Urine Nitrite Negative (Negative) Urine Bilirubin Negative (Negative) Urine Urobilinogen Negative (Negative) Ur Leukocyte Esterase Negative (Negative) Adenovirus (PCR) Not Detected (NotDetected) B. pertussis DNA (PCR) Not Detected (NotDetected) B.parapertussis DNA PCR Not Detected (NotDetected) C. pneumoniae DNA (PCR) Not Detected (NotDetected) Coronavirus OC43 (PCR) Not Detected (NotDetected) Coronavirus HKU1 (PCR) Not Detected (NotDetected) Coronavirus 229E (PCR) Not Detected (NotDetected) SARS-CoV-2 (PCR) Not Detected (NotDetected) Coronavirus NL63 (PCR) Not Detected (NotDetected) Human Metapneumovir PCR Not Detected (NotDetected) Influenza Type A (PCR) Not Detected (NotDetected) Influenza Type B (PCR) Not Detected (NotDetected) M. pneumoniae (PCR) Not Detected (NotDetected) Parainfluenza 1 (PCR) Not Detected (NotDetected) Parainfluenza 2 (PCR) Not Detected (NotDetected) Parainfluenza 3 (PCR) Not Detected (NotDetected) Parainfluenza 4 (PCR) Not Detected (NotDetected) RSV (PCR) Not Detected (NotDetected) Entero/Rhino (PCR) Not Detected (NotDetected) 08/05/24 Range/Units 10:57 WBC 6.98 (4.8-10.8) K/ul RBC 4.22 (4.20-5.40) M/uL Hgb 12.5 (12.0-16.0) g/dl Hct 39.4 (37.0-47.0) % MCV 93.4 (80.0-100.0) fL MCH 29.6 (25.0-34.0) pg MCHC 31.7 L (32.0-36.0) g/dL RDW Std Deviation 48.7 H (36.4-46.3) fL RDW Coeff of Ata 14.2 (11.5-14.5) % Plt Count 111 L (130-400) K/uL MPV 10.7 (9.4-12.4) fL Immature Gran % (Auto) 0.7 % Neut % (Auto) 79.9 % Lymph % (Auto) 6.4 % Bingham % (Auto) 12.6 % Eos % (Auto) 0.0 % Baso % (Auto) 0.4 % Neut # (Auto) 5.57 (1.40-6.50) K/uL Lymph # (Auto) 0.45 L (1.20-3.40) K/uL Bingham # (Auto) 0.88 H (0.11-0.59) K/uL Eos # (Auto) 0.00 (0.00-0.50) K/uL Baso # (Auto) 0.03 (0.00-0.20) K/uL Immature Gran # (Auto) 0.05 (0.01-0.20) K/uL PT 17.9 H (9.0-12.0) Seconds INR 1.7 H (0.9-1.1) Sodium 135 L (136-145) mmol/L Potassium 4.5 (3.5-5.1) mmol/L Chloride 99 (98-107) mmol/L Carbon Dioxide 27 (21-32) mmol/L Anion Gap 9 (3-11) BUN 21 (6-23) mg/dl Creatinine 1.14 (0.6-1.2) mg/dl Est Cr Clr Drug Dosing 43.7 ml/min Est GFR ( Amer) 49.4 ml/min Est GFR (Non-Af Amer) 42.6 ml/min BUN/Creatinine Ratio 18.4 (10-20) Glucose 208 H (70-99(Fasting)) mg/dl Calcium 9.1 (8.6-10.3) mg/dl Magnesium 1.6 L (1.7-2.4) mg/dl Total Bilirubin 0.7 (0.2-1.0) mg/dl AST 24 (13-39) U/L ALT 18 (7-52) U/L Alkaline Phosphatase 78 (34-104) U/L Troponin I High Sens 10.6 (0-14) pg/ml B-Natriuretic Peptide (0-100) pg/ml Total Protein 7.2 (6.0-8.3) gm/dl Albumin 3.9 (3.4-5.0) gm/dl Globulin 3.3 (2.5-4.0) gm/dl Albumin/Globulin Ratio 1.2 (0.9-2) Lipase 18 (11-82) U/L Procalcitonin 0.09 (0-0.5) ng/ml Urine Color Urine Appearance (Clear) Urine pH (4.5-7.5) Ur Specific Edison (1.000-1.030) Urine Protein (Negative) Urine Glucose (UA) (Negative) Urine Ketones (Negative) Urine Blood (Negative) Urine Nitrite (Negative) Urine Bilirubin (Negative) Urine Urobilinogen (Negative) Ur Leukocyte Esterase (Negative) Adenovirus (PCR) (NotDetected) B. pertussis DNA (PCR) (NotDetected) B.parapertussis DNA PCR (NotDetected) C. pneumoniae DNA (PCR) (NotDetected) Coronavirus OC43 (PCR) (NotDetected) Coronavirus HKU1 (PCR) (NotDetected) Coronavirus 229E (PCR) (NotDetected) SARS-CoV-2 (PCR) (NotDetected) Coronavirus NL63 (PCR) (NotDetected) Human Metapneumovir PCR (NotDetected) Influenza Type A (PCR) (NotDetected) Influenza Type B (PCR) (NotDetected) M. pneumoniae (PCR) (NotDetected) Parainfluenza 1 (PCR) (NotDetected) Parainfluenza 2 (PCR) (NotDetected) Parainfluenza 3 (PCR) (NotDetected) Parainfluenza 4 (PCR) (NotDetected) RSV (PCR) (NotDetected) Entero/Rhino (PCR) (NotDetected)
[2024-08-05] MEDS: MAGNESIUM SULFATE / D5W 1 GM/100 ML BAG IV ONE (15:38)
[2024-08-05] MEDS: LEVALBUTEROL HCL 0.63 MG/3 ML NEB NEB SCH (15:45)
[2024-08-05] MEDS: ERTAPENEM SODIUM 1,000 MG in SYRINGE 0 ML IV SCH (15:49)
--- NOTE | 2024-08-05 17:04 | Ultrasound Report ---
ABDOMINAL ULTRASOUND, LIMITED STUDY HISTORY: Acute onset abdominal pain with distention r/o ascites. COMPARISON: CT 04/04/2016 FINDINGS/IMPRESSION: No abdominal ascites identified on this exam. ACT 112: Negative or not required by law. Electronically signed by: Ben Acevedo M.D. 08/05/2024 5:03 PM
[2024-08-05] MEDS: INSULIN ASPART PER UNIT CHARGE SC SCH (17:59)
[2024-08-05] MEDS: DOXYCYCLINE HYCLATE 100 MG CAP PO SCH (20:56)
[2024-08-05] MEDS: GABAPENTIN 300 MG CAP PO SCH (20:57)
[2024-08-05] MEDS: MAGNESIUM CHLORIDE W/CALCIUM 64MG DELAYED REL TAB PO SCH (20:58)
[2024-08-05] MEDS ORDERED: MELATONIN 3 MG TAB PO PRN (21:00)
[2024-08-05] MEDS: HEPARIN SOD 5,000 UNIT/0.5 ML VIAL SQ ONE (21:04)
[2024-08-05] MEDS: ATORVASTATIN 10 MG TAB PO SCH (21:14)
--- OUTSIDE RECORDS SUMMARY | 2024-08-05 21:43 | External Medical Summary | Summary of Care ---
Author Name Unknown Organization [facility] Address [address] [place] [address] Phone [phone] Care Team Providers Care Arm Rest Builder Name Role Phone Duong Looney MD Primary Care Provider [phone] Reason for Visit * Reason Comments Status Check Encounter Details Date Type Department Care Team (Latest Contact Info) Description 08/04/2024 5:10 PM EDT 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 Pharmacy, [place] [address] [place] [address] [facility] [address] [place] [address] Personal history of TIA (transient ischemic attack)*; Permanent atrial fibrillation (HCC) Allergies Active Allergy Reactions Criticality Noted Date Comments Adhesive Tape 03/11/2003 redness Latex 01/18/2005 rash Lisinopril Cough Low 03/18/2014 Penicillins 07/14/1999 swelling Prednisone 04/20/2005 Pt says it makes her "bleed into her intestines" documented as of this encounter (statuses as of 08/04/2024) Medications Medication Sig Dispensed Refills Start Date End Date Status Blood Glucose Monitoring Suppl (SavvySystemsTOUCH ULTRA 2) w/Device KITIndications:Type 2 diabetes mellitus with hemoglobin A1c goal of less than 8.0% ([facility]) Use as directed to test blood [...] mellitus with diabetic neuropathy, unspecified whether 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 manager insulin use ([facility]),Restless leg syndrome take 1 capsule by [...] goal of less than 8.0% ([facility]) TEST once daily E11.9 100 Strip 3 04/30/2024 Active Nystatin 869002 UNIT/GM External Powder (Nyamyc)Indications:C andidal skin infection [...] as of this encounter (statuses as of 08/04/2024) Active Problems Problem Noted Date Diagnosed Date [...] NEURO DZ 09/08/2009 Overview: Per Diabetes Taxonomy. 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 Patient was started on Sulfamethoxazole-TMP 800-160 mg BID for 10 days prior to admission at [facility]. She was admitted 08/01 and discharged 08/03. Also taking magnesium + probiotic. Received cefepime and flagyl. Appetite is okay. Does endorse that she is more fatigued. Hoping that she goes to urology appt on depending on her energy levels. She will get INR that day, or INR fingerstick scheduled for Saturday + same day as PCP appt. Cammie Salinas RPh, PharmD Clinical Pharmacist Medication Therapy Disease Management 08/04/2024, 2:43 PM documented in this encounter Plan of Treatment Upcoming Encounters Date Type Department Care Team (Late st Contact Info) Description 08/06/2024 10:15 AM EDT Office Visit General Surgery, [facility] [address] [address] Mikie Vital MD [address] [place] [address] 08/07/2024 1:50 PM EDT 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 Pharmacy, [place] [address] [facility], [place] [address] [facility] [address] [place] [address] 08/11/2024 10:20 AM EDT Office Visit Family [facility], [place] [address], [place] [phone] Duong Looney MD [address] [facility], [place] [address] 08/11/2024 11:30 AM EDT 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 Pharmacy, [place] [address], [place] [address] [facility] [address], [place] [address] 08/19/2024 1:30 PM EDT Office Visit Urology, [facility] [address] [facility] [place] [address] Jeremy Vital MD [address] [address] 08/20/2024 6:00 AM EDT 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 Pharmacy, [place] [address], [place] [address] [place], [facility] [address], [place] [address] 09/02/2024 11:50 AM EDT 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 Pharmacy, [place] [address], [place] [address] [place], [facility] [address], [place] [address] 09/22/2024 3:00 PM EST Office Visit Cardiology, [facility] [address] [place] [address] Duong Paz PA-C [address] [place] [address] 11/23/2024 12:20 PM EST Office Visit Family [facility] [address] [phone] Duong Looney MD [address] [place] [address] Health Maintenance Due Date Last Done Comments [...] 9:59 AM 10/18/2004 10:59 AM Care Teams Arm Rest Builder Relationship Specialty Start Date End Date Duong Looney MD [address] [place] [address] PCP - General 07/31/00 documented as of this encounter
--- OUTSIDE RECORDS SUMMARY | 2024-08-05 21:43 | External Medical Summary | Summary of Care ---
Author Name Unknown Organization [facility] Address [address] [place] [address] Phone [phone] Care Team Providers Care Customer Resolution Specialist Name Role Phone Duong Looney MD Primary Care Provider [phone] Reason for Visit * Reason Onset Date Comments Test Results 08/04/2024 [facility] [address] arge Info Encounter Details Date Type Department Care Team ([facility] st Contact Info) Description 08/04/2024 Telephone [facility] [address] [facility] [place] [address] Duong Looney MD [address] [place] [address] Test Results ([facility] Discharge Info) Allergies Active Allergy Reactions Criticality Noted Date Comments Adhesive Tape 03/11/2003 redness Latex 01/18/2005 rash Lisinopril Cough Low 03/18/2014 Penicillins 07/14/1999 swelling Prednisone 04/20/2005 Pt says it makes her "bleed into her intestines" documented as of this encounter (statuses as of 08/04/2024) Medications Medication Sig Dispensed Refills Start Date End Date Status Blood Glucose Monitoring Suppl (MonitorTOUCH ULTRA 2) w/Device KITIndications:Type 2 diabetes mellitus with hemoglobin A1c goal of less than 8.0% ([facility]) Use as directed to test blood [...] diabetes mellitus with diabetic neuropathy, unspecified whether painter insulin use ([facility]),Restless leg syndrome take 1 capsule by [...] hemoglobin A1c goal of less than 8.0% ([facility]) TEST once daily E11.9 100 Strip 3 04/30/2024 Active Nystatin 659620 UNIT/GM External Powder (Nyamyc)Indications:C andidal skin infection [...] NEURO DZ 09/08/2009 Overview: Per Diabetes Taxonomy. skilled nursing current use of anticoagulant therapy 0 06/15/2005 [...] Telephone Encounter - Duong Looney MD - 08/04/2024 5:05 PM EDT Can we get a copy of the wound culture result. This was unavailable on discharge summary. * Telephone Encounter - Lisa Kirkland LPN - 08/04/2024 9:58 AM EDT Please advise. Discharge note is on media. * Telephone Encounter - Galileo Infante OSA - 08/04/2024 9:33 AM EDT Who is Requesting Test Results: Ana Mason, patient's daughter and patient Primary Care Provider : Duong Looney MD Tests Results Requested : [facility] Date of Test : 08.03.24 Location of Test: [facility]/On Discharge papers viewable in Media folder. Ordering Provider: Dennis Cheek/attending physician Patient and daughter would like a report on the labwork done at the hospital before HD appt on 08.11.24 Patient has been made aware that the turnaround time for test results are typically as follows: Laboratory results = within 2-3 days ([facility]), 3-5 days (Non-[facility], ie. [facility]) Urine Cultures = within 2-3 days depending on growth within the culture Pathology results (biopsy results/PAP) = 1-2 weeks Radiology results = about 1 week Cologuard results = within 2 weeks from the shipment date COVID testing = about 24 hours documented in this encounter Plan of Treatment Upcoming Encounters Date Type Department Care Team (Late st Contact Info) Description 08/06/2024 10:15 AM EDT Office Visit General Surgery, [facility] [address] [address] Mikie Vital MD [address] [place] [address] 08/07/2024 1:50 PM EDT 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 Pharmacy, [place] [address] [facility] [place] [address] [facility] [address] [place] [facility] [place] [address] 08/11/2024 10:20 AM EDT Office Visit Family [facility], [place] [address] [phone] Duong Looney MD [address] [place] [facility] [place] [address] 08/11/2024 11:30 AM EDT 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 Pharmacy, [place] [address] [facility] [place] [address] [facility] [address] [place] [facility] [place] [address] 08/19/2024 1:30 PM EDT Office Visit Urology, [facility] [address] [facility] [place] [address] Jeremy Vital MD [address] [address] 08/20/2024 6:00 AM EDT 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 Pharmacy, [place] [address] [facility] [place] [address] [place], [facility] [address] [place] [facility] [place] [address] 09/02/2024 11:50 AM EDT 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 Pharmacy, [place] [address] [place] [facility] [place] [address] [place], [facility] [address] [place] [facility] [place] [address] 09/22/2024 3:00 PM EST Office Visit Cardiology, [facility] [address] [facility] [place] [address] Duong Paz, [place]-C [address] [facility] [place] [address] 11/23/2024 12:20 PM EST Office Visit Family Practice, [place] [address] [facility] [id number] Duong Looney MD [address] [place] [facility] [place] [address] Health Maintenance Due Date Last Done Comments [...] 9:59 AM 10/18/2004 10:59 AM Care Teams Customer Resolution Specialist Relationship Specialty Start Date End Date Duong Looney MD [address] [place] [address] PCP - General 07/31/00 documented as of this encounter
[2024-08-05] MEDS ORDERED: ALBUT/IPRATROP 3MG/0.5MG NEB 3 ML VIAL NEB PRN (22:42)
[2024-08-06 05:58] LABS: Basophils # (auto) 0.02 K/uL (0.00-0.20); Basophils % (auto) 0.4 %; Hematocrit (blood only) 33.3 % (37.0-47.0); Hemoglobin 10.7 g/dl (12.0-16.0); Immature Granulocytes # (auto) 0.03 K/uL (0.01-0.20); Immature Granulocytes % (auto) 0.6 %; Lymphocytes # (auto) 0.54 K/uL (1.20-3.40); Lymphocytes % (auto) 10.1 %; Mean Corpuscular Hemoglobin 29.5 pg (25.0-34.0); Mean Corpuscular Hgb Conc 32.1 g/dL (32.0-36.0); Mean Corpuscular Volume 91.7 fL (80.0-100.0); Mean Platelet Volume 10.5 fL (9.4-12.4); Monocytes # (auto) 0.85 K/uL (0.11-0.59); Monocytes % (auto) 15.9 %; Neutrophils # (auto) 3.89 K/uL (1.40-6.50); Platelet Count 109 K/uL (130-400); RDW Coefficient of Variation 14.1 % (11.5-14.5); RDW Standard Deviation 47.5 fL (36.4-46.3); Red Blood Count 3.63 M/uL (4.20-5.40); White Blood Count 5.33 K/ul (4.8-10.8)
[2024-08-06 06:00] LABS: Albumin Globulin Ratio 1.2 (0.9-2); Albumin Level 3.3 gm/dl (3.4-5.0); BUN Creatinine Ratio 19.2 (10-20); Bilirubin,Total 0.6 mg/dl (0.2-1.0); Calcium 8.7 mg/dl (8.6-10.3); Est GFR (African American) 55.2 ml/min; Est GFR (Non-African American) 47.6 ml/min; Globulin 2.8 gm/dl (2.5-4.0); Magnesium 1.8 mg/dl (1.7-2.4); Potassium 4.6 mmol/L (3.5-5.1); Total Protein 6.1 gm/dl (6.0-8.3)
[2024-08-06 06:10] LABS: INR 2.2 (0.9-1.1); Prothrombin Time 22.4 Seconds (9.0-12.0)
--- NOTE | 2024-08-06 06:12 | Electrocardiogram Report ---
Test Reason : Blood Pressure : */* mmHG Vent. Rate : 103 BPM Atrial Rate : * BPM P-R Int : * ms QRS Dur : 76 ms QT Int : 316 ms P-R-T Axes : * 37 173 degrees QTcB Int : 413 ms Atrial fibrillation with rapid ventricular response Low voltage QRS Cannot rule out Anterior infarct , age undetermined Abnormal ECG When compared with ECG of 01-Aug-2024 13:59, No significant change Confirmed by Kiran Varghese ([id number]) on 08/06/2024 6:12:40 AM Referred By: REFERRED SELF Confirmed By: Kiran Varghese
[2024-08-06 07:19] LABS: Estimated Average Glucose 154 mg/dl
[2024-08-06] MEDS: OXYBUTYNIN CHLORIDE XL 5 MG TABCR PO SCH (07:37)
[2024-08-06] MEDS: LOSARTAN POTASSIUM 25 MG TAB PO SCH (07:38)
[2024-08-06] MEDS: ADVANCED PROBIOTIC 625 MG CAPSULE PO SCH (07:38)
[2024-08-06] MEDS: CEROVITE ADV FORMULA TAB PO SCH (07:38)
[2024-08-06] MEDS: GABAPENTIN 300 MG CAP PO SCH (07:38)
[2024-08-06] MEDS: FLUTICASONE FUROATE 200MCG 14 PUFFS/INHALER INH SCH (07:39)
[2024-08-06] MEDS: FUROSEMIDE 40 MG/4 ML VIAL IV SCH (07:40)
[2024-08-06] MEDS: UMECLIDINIUM/VILANTEROL 62.5/25MCG 7 PUFFS/INHALER INH SCH (07:41)
[2024-08-06] MEDS ORDERED: NON-FORMULARY MEDICATION (Fluticasone-Umeclidin-Vilanter [Trelegy Ellipta] 200-62.5-25 mcg INH SCH (09:00)
--- NOTE | 2024-08-06 11:09 | Cardiology Consultation ---
Date of Consultation August 06, 2024 Assessment & Plan (1) Acute on chronic hypoxic respiratory failure: (2) Aspiration into airway: (3) Chronic heart failure with preserved ejection fraction: (4) Aortic stenosis, mild: (5) Permanent atrial fibrillation: (6) History of pulmonary embolism: (7) Abscess of chest wall: Plan Complex 88-year-old female presents with acute hypoxic respiratory failure with x-ray evidence of possible pneumonia/aspiration and mild pulmonary vascular congestion.Mild lower extremity edema noted on exam without orthopnea or PND. Patient mildly hypervolemic at this time. Agree with IV diuresis at this time with possible transition to oral diuretic therapy in next 24 - 48 hours. Monitor fluid balance, daily weight (standing scale only), GFR, and electrolytes. Heart rates are controlled on telemetry without beta-suraj therapy (documented beta-suraj intolerance). Continue oral anticoagulation with warfarin goal INR 2.0-3.0. Recent echocardiogram performed in May confirming mild aortic valve stenosis and preserved LV systolic function. No need for repeat echocardiogram at this time. Continue antibiotic therapy as per hospitalist. Thank you for allow me to participate in the care of your patient. I will continue to follow during hospitalization. 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 X-ray on admission demonstrating pulmonary vascular congestion possible right lower lobe infiltrate. Aspiration not excluded. Recently hospitalized 08/01 through 08/03 due to chest wall cellulitis/abscess.Received dose of IV furosemide and broad-spectrum antibiotics in ER. Fluid balance -755 cc since admission. Renal function and electrolytes stable today. Patient seen and examined at the bedside. Extremely hard of hearing and does not have her hearing aids with her today. Denies chest discomfort or shortness of breath. Mild bilateral lower extremity edema with stasis changes noted. Denies orthopnea or PND. Intermittent cough noted. No sputum production. No palpitations, lightheadedness, or dizziness. Telemetry reveals atrial fibrillation in the 60s and 70s. INR therapeutic on admission. Patient is not chronically treated with beta-blockers due to history of bradycardia. Allergies Allergy/AdvReac Type Severity Reaction Status Date / Time vancomycin Allergy Severe ANAPHYLAXIS Verified 05/30/24 15:17 adhesive Allergy Intermediate RED AND Verified 05/30/24 15:17 ITCHY SKIN latex Allergy Intermediate Rash Verified 05/30/24 15:17 Penicillins Allergy Intermediate SWELLING Verified 08/01/24 15:01 PER GMG lisinopril AdvReac Intermediate Cough Verified 05/30/24 15:17 prednisone AdvReac Intermediate INCREASED Verified 05/30/24 15:17 HER RECTAL BLEEDING Home Medications Medication Instructions Recorded Confirmed Type acetaminophen 500 mg tablet 1,000 mg PO Q6H PRN Pain 06/06/23 08/05/24 History (Tylenol Extra Strength) albuterol sulfate 90 mcg/actuation 2 puff inhalation Q4 PRN Shortness 06/06/23 08/05/24 History aerosol inhaler Of Breath Or Wheezing atorvastatin 10 mg tablet 10 mg PO HS 06/06/23 08/05/24 History gabapentin 300 mg capsule 300 mg PO UD 06/06/23 08/05/24 History lorazepam 1 mg tablet 1 mg PO HS PRN ANXIETY/SLEEP 06/06/23 08/05/24 History losartan 25 mg tablet 25 mg PO DAILY 06/06/23 08/05/24 History metformin 500 mg tablet,extended 500 mg PO BIDM 06/06/23 08/05/24 History release 24 hr solifenacin 5 mg tablet 5 mg PO QAM 06/06/23 08/05/24 History vit C 250 mg-vit E 90 mg-zinc 40 1 tab PO BIDM 06/06/23 08/05/24 History mg-copper 1 [id number] capsule (PreserVision AREDS-2) warfarin 5 mg tablet 5 mg PO SUTUWETHFRSA@1600 06/06/23 08/05/24 History fluticasone fur. 200 mcg-umeclid 1 inh inhalation DAILY 05/30/24 08/05/24 History 62.5 mcg-vilant 25 mcg inhalat.powder (Trelegy Ellipta) loperamide 2 mg capsule 2 mg PO DIRECTED PRN Diarrhea 05/30/24 08/05/24 History nystatin 100,000 unit/gram topical 1 applic topical BID PRN ABD FOLDS 05/30/24 08/05/24 History powder (Nyamyc) NEEDED sulfamethoxazole 800 1 tab PO BID 05/30/24 08/05/24 History mg-trimethoprim 160 mg tablet triamcinolone acetonide 0.1 % 1 applic topical BID PRN SKIN 05/30/24 08/05/24 History topical cream IRRITATION NEEDED furosemide 20 mg tablet 40 mg (2 x 20 mg) PO DAILY #0 tabs 06/02/24 08/05/24 Rx warfarin 2.5 mg tablet 2.5 mg PO MO@1600 08/01/24 08/05/24 History L.acidop,casei,lactis,rham-B.lact,minesh 1 cap PO DAILY 10 days #10 caps 08/03/24 08/05/24 Rx 625 mg (10 billion cell) capsule (Advanced Probiotic) magnesium chloride 64 mg 64 mg PO BID #30 tabs 08/03/24 08/05/24 Rx (magnesium chloride) tablet,delayed release (Mag 64) fluticasone fur. 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 COPD with asthma Surgical History History of cholecystectomy History of back surgery History of tubal ligation History of hysterectomy History of cataract surgery History of total left knee replacement History of total right knee replacement Family History Mother Heart disease Social History Smoking Status: Never smoker Tobacco Type: Cigarettes Hx Alcohol Use: No Hx Substance Use: No Preferred Language: Yi Communication Ability: Effective Communication Ability Comment: hearing deficit Licensed Audiologist Required: No Beliefs That Will Affect Care: None marital status: / Current Living Situation: Family Current Living Situation Comment: lives with daughter current occupational status: retired Feels Safe at Home: Yes Safety Concerns: Feels Safe At This Time Assistive Devices: Denture - Lower, Glasses, Hearing Aid - Left and Walker Review of Systems Review of Systems: Unobtainable due to cognitive status Physical Exam Constitutional: well nourished and + obese; no acute distress Respiratory: no respiratory distress, no labored breathing and no retractions Auscultation: + diminished lung sounds (Right base); no rales, no rhonchi and no wheezes Cardiovascular: Rate/Rhythm: + irregularly irregular Heart Sounds: normal S1, normal S2 and + murmur (2/6 MITCH) Vessels: no JVD Extremities: + edema (mild 1+ B/L ankle edema with stasis changes) Gastrointestinal (Abdomen): Inspection/Auscultation: abdomen normal to inspection and normal bowel sounds; abdomen not distended Percussion/Palpation: abdomen soft; abdomen nontender, no guarding and abdomen not rigid Neurologic: CN's II-XI intact bilaterally and moves all extremities; no focal motor deficits Results & Data Vital Signs (Past 12 Hours) Vital Signs Temp Pulse Pulse Resp BP BP Pulse Ox 08/06/24 07:40 08/06/24 07:23 80 18 91 08/06/24 07:18 36.9 C 78 18 150/68 H 93 08/06/24 07:00 79 08/06/24 03:22 36.7 C 71 18 153/74 H 93 08/06/24 00:00 62 08/05/24 22:50 36.9 C 74 18 153/76 H 96 O2 Del Method O2 Flow Rate 08/06/24 07:40 Nasal Cannula 4 08/06/24 07:23 Nasal Cannula 4 08/06/24 07:18 Nasal Cannula 4 08/06/24 07:00 08/06/24 03:22 Nasal Cannula 4 08/06/24 00:00 08/05/24 22:50 Nasal Cannula 4 Laboratory Results Cardiac Enzymes 08/05/24 08/05/24 08/06/24 Range/Units 10:57 14:07 05:20 AST 24 25 (13-39) U/L Troponin I High Sens 10.6 (0-14) pg/ml B-Natriuretic Peptide 221 H (0-100) pg/ml Coagulation 08/05/24 08/05/24 08/06/24 Range/Units 10:57 14:07 05:20 PT 17.9 H 22.4 H (9.0-12.0) Seconds B-Natriuretic Peptide 221 H (0-100) pg/ml CBC 08/05/24 08/06/24 Range/Units 10:57 05:20 WBC 6.98 5.33 (4.8-10.8) K/ul RBC 4.22 3.63 L (4.20-5.40) M/uL Hgb 12.5 10.7 L (12.0-16.0) g/dl Hct 39.4 33.3 L (37.0-47.0) % Plt Count 111 L 109 L (130-400) K/uL Neut # (Auto) 5.57 3.89 (1.40-6.50) K/uL Lymph # (Auto) 0.45 L 0.54 L (1.20-3.40) K/uL [place] # (Auto) 0.88 H 0.85 H (0.11-0.59) K/uL Eos # (Auto) 0.00 0.00 (0.00-0.50) K/uL Baso # (Auto) 0.03 0.02 (0.00-0.20) K/uL Comprehensive Metabolic Panel 08/05/24 08/06/24 Range/Units 10:57 05:20 Sodium 135 L 134 L (136-145) mmol/L Potassium 4.5 4.6 (3.5-5.1) mmol/L Chloride 99 101 (98-107) mmol/L Carbon Dioxide 27 27 (21-32) mmol/L BUN 21 20 (6-23) mg/dl Creatinine 1.14 1.04 (0.6-1.2) mg/dl Glucose 208 H 121 H (70-99(Fasting)) mg/dl Calcium 9.1 8.7 (8.6-10.3) mg/dl AST 24 25 (13-39) U/L ALT 18 20 (7-52) U/L Alkaline Phosphatase 78 59 (34-104) U/L Total Protein 7.2 6.1 (6.0-8.3) gm/dl Albumin 3.9 3.3 L (3.4-5.0) gm/dl Intake and Output 08/05/24 08/06/24 08/06/24 22:59 06:59 14:59 Intake Total 300 / 520 120 / 520 120 / 120 Output Total 1025 / 1275 250 / 1275 0 / 0 Balance -725 / -755 -130 / -755 120 / 120 Intake: IV 100 / 200 Magnesium Sulfate / D5w 1 gm In 100 / 100 100 ml @ 50 mls/hr IV ONE ONE Rx#:[id number] Oral 200 / 320 120 / 320 120 / 120 Output: Urine Amount (Catheter) 102 / 1275 250 / 1275 Alas/Indwelling 1024 / 127 250 / 1275 # Bowel Movements 0 / 0 Other: Weight 122.5 kg 123.4 kg Weight Measurement Method Built in [facility] Built in [facility] Diagnostic Findings 2D echocardiogram report 01/29/2024: The qualitative LV ejection fraction is 60-64% (normal). The LV wall thickness is mildly increased (concentric). The left ventricular wall motion is normal. The left atrium is moderately enlarged. Moderate aortic valve sclerosis is present. Mild aortic valve stenosis is present. There is severe mitral annular calcification. Mild mitral regurgitation is present. Mild tricuspid regurgitation is present (2) Aspiration into airway Encounter type: initial encounter Qualified Code(s): T17.908A - Unspecified foreign body in respiratory tract, part unspecified causing other injury, initial encounter
--- NOTE | 2024-08-06 14:31 | Hospitalist Progress Note ---
Date of Service August 06, 2024 Assessment & Plan (1) Acute on chronic hypoxic respiratory failure: (2) Acute on chronic heart failure with preserved ejection fraction: (3) Paroxysmal atrial fibrillation: (4) Abscess of chest wall: Plan Ms. Vital is an 88-year-old female with PMH of type 2 diabetes, hyperlipidemia with statin intolerance, COPD, chronic hypoxic resp failure on 2L NC O2 with exertion and HS, atrial fibrillation on Coumadin, hypertension, history of TIA, benign essential tremor, history of uterine cancer and other medical problems listed below is admitted for management of fever and SOB. Patient noted to be in acute heart failure. Patient also s/p I&D of abscess on chest 08/05. Patient remains on IV abx and IV furosemide. #Acute on chronic hypoxic respiratory failure, baseline 2L #Acute on chronic HFpEF last echo 06/03: EF 60-65%, severe biatrial enlargement, mild aortic valvular stenosis, calcified mitral apparatus low suspicion of pneumonia: procal 0.09, no active cough low suspicion for COPD exacerbation: no wheezing, subjective improvement with lasix Likely multifactorial in setting of decompensated CHF, Weight up form d/c 112kg --> 117.8kg Continue to monitor on telemetry Cardiology following: reviewed recommendation, continue IV Lasix BID Possible transition to PO in 24-48 hours daily weights, strict intake and output, low salt diet nebs prn for now encourage incentive spirometry, continue O2 supplementation, wean to keep 02 between 88-92% #Chest wall abscess/cellulitis #Sebaceous cyst pt with dressing changes, will consult surgery for eval as pt reporting drainage MRSA negative IV ertapenem for now #Hypomagnesemia trend lytes and replace prn #Paroxysmal A fib initially tachycardic, now rate WNL, not on rate/rhythm control Continue Coumadin for anticoagulation Trend INR, 2.0-3.0 goal #DM II A1c 7.0 Hold home agents SSI while in-patient BSG AC HS #HTN Continue losartan Monitor BP #CKD III Monitor renal function Avoid nephrotoxic agents as able Cr stable #Morbid obesity BMI 41 encourage activity as tolerated, plan for PT/OT DVT Px: Coumadin Code status: DNR/DNI PCP: Aure Dispo: admit to [facility] tele Admission and Anticipated Discharge Date Admission Date: August 05, 2024 Subjective NAEO Reports just feeling "not right" but denies anything local States her breathing does feel improved but notes the swelling in her legs is uncomfortable Physical Exam Constitutional: WD/WN, vitals as above hard of hearing Respiratory: diminished Cardiovascular: RRR, +MITCH Results & Data Results & Data Vital Signs (Past 12 Hours) Vital Signs Temp Pulse Pulse Resp BP BP Pulse Ox 08/06/24 14:00 79 08/06/24 13:01 61 20 97 08/06/24 11:22 36.7 C 61 18 131/71 97 08/06/24 07:40 08/06/24 07:23 80 18 91 08/06/24 07:18 36.9 C 78 18 150/68 H 93 08/06/24 07:00 79 08/06/24 03:22 36.7 C 71 18 153/74 H 93 O2 Del Method O2 Flow Rate 08/06/24 14:00 08/06/24 13:01 Nasal Cannula 4 08/06/24 11:22 Nasal Cannula 4 08/06/24 07:40 Nasal Cannula 4 08/06/24 07:23 Nasal Cannula 4 08/06/24 07:18 Nasal Cannula 4 08/06/24 07:00 08/06/24 03:22 Nasal Cannula 4 Laboratory Results Short CBC 08/06/24 Range/Units 05:20 WBC 5.33 (4.8-10.8) K/ul Hgb 10.7 L (12.0-16.0) g/dl Hct 33.3 L (37.0-47.0) % Plt Count 109 L (130-400) K/uL BMP 08/06/24 05:20 Sodium 134 L Potassium 4.6 Chloride 101 Carbon Dioxide 27 BUN 20 Creatinine 1.04 Glucose 121 H Calcium 8.7 Liver Function 08/06/24 Range/Units 05:20 Total Bilirubin 0.6 (0.2-1.0) mg/dl AST 25 (13-39) U/L ALT 20 (7-52) U/L Alkaline Phosphatase 59 (34-104) U/L Albumin 3.3 L (3.4-5.0) gm/dl Medications Administered Home Medications Medication Instructions Recorded Confirmed Last Taken acetaminophen 500 mg tablet 1,000 mg PO Q6H PRN Pain 06/06/23 08/05/24 Unknown (Tylenol Extra Strength) albuterol sulfate 90 mcg/actuation 2 puff inhalation Q4 PRN Shortness 06/06/23 08/05/24 Unknown aerosol inhaler Of Breath Or Wheezing atorvastatin 10 mg tablet 10 mg PO HS 06/06/23 08/05/24 05/29/24 gabapentin 300 mg capsule 300 mg PO UD 06/06/23 08/05/24 05/29/24 lorazepam 1 mg tablet 1 mg PO HS PRN ANXIETY/SLEEP 06/06/23 08/05/24 Unknown losartan 25 mg tablet 25 mg PO DAILY 06/06/23 08/05/24 05/30/24 metformin 500 mg tablet,extended 500 mg PO BIDM 06/06/23 08/05/24 05/30/24 08:00 release 24 hr solifenacin 5 mg tablet 5 mg PO QAM 06/06/23 08/05/24 05/30/24 vit C 250 mg-vit E 90 mg-zinc 40 1 tab PO BIDM 06/06/23 08/05/24 05/30/24 08:00 mg-copper 1 [id number]-[id number]-wplkro capsule (PreserVision AREDS-2) warfarin 5 mg tablet 5 mg PO SUTUWETHFRSA@1600 06/06/23 08/05/24 05/29/24 5 MG fluticasone fur. 200 mcg-umeclid 1 inh inhalation DAILY 05/30/24 08/05/24 05/30/24 62.5 mcg-vilant 25 mcg inhalat.powder (Trelegy Ellipta) loperamide 2 mg capsule 2 mg PO DIRECTED PRN Diarrhea 05/30/24 08/05/24 Unknown nystatin 100,000 unit/gram topical 1 applic topical BID PRN ABD FOLDS 05/30/24 08/05/24 Unknown powder (Nyamyc) NEEDED sulfamethoxazole 800 1 tab PO BID 05/30/24 08/05/24 Unknown mg-trimethoprim 160 mg tablet triamcinolone acetonide 0.1 % 1 applic topical BID PRN SKIN 05/30/24 08/05/24 Unknown topical cream IRRITATION NEEDED furosemide 20 mg tablet 40 mg (2 x 20 mg) PO DAILY #0 tabs 06/02/24 08/05/24 05/30/24 warfarin 2.5 mg tablet 2.5 mg PO MO@1600 08/01/24 08/05/24 Unknown L.acidop,casei,lactis,rham-B.lact,minesh 1 cap PO DAILY 10 days #10 caps 08/03/24 08/05/24 Unknown 625 mg (10 billion cell) capsule (Advanced Probiotic) magnesium chloride 64 mg 64 mg PO BID #30 tabs 08/03/24 08/05/24 Unknown (magnesium chloride) tablet,delayed release (Mag 64) fluticasone fur. 200 mcg-umeclid 1 inh inhalation DAILY 08/05/24 08/05/24 Unknown 62.5 mcg-vilant 25 mcg inhalat.powder (Trelegy Ellipta) Active Medications Generic Name Dose Route Start Last Admin Trade Name Freq PRN Reason Stop Dose Admin Atorvastatin Calcium 10 mg 08/05/24 21:00 08/05/24 21:14 Atorvastatin 10 Mg Tab PO 09/04/24 20:59 10 mg HS MARIANELA Administration Doxycycline Hyclate 100 mg 08/05/24 21:00 08/06/24 07:38 Doxycycline Hyclate 100 Mg Cap PO 08/12/24 20:59 100 mg BID MARIANELA Administration Fluticasone Furoate 1 puffs 08/06/24 09:00 08/06/24 07:39 Fluticasone Furoate 200mcg 14 Puffs/Inhaler INH 09/05/24 08:59 1 puffs DAILY MARIANELA Administration Furosemide 40 mg 08/06/24 09:00 08/06/24 07:40 Furosemide 40 Mg/4 Ml Vial IV 09/05/24 08:59 40 mg BID17 MARIANELA Administration Gabapentin 300 mg 08/06/24 09:00 08/06/24 07:38 Gabapentin 300 Mg Cap PO 09/05/24 08:59 300 mg DAILY MARIANELA Administration Gabapentin 600 mg 08/05/24 21:00 08/05/24 20:57 Gabapentin 300 Mg Cap PO 09/04/24 20:59 600 mg HS MARIANELA Administration Ertapenem 1,000 mg/ Syringe 10 mls @ 2 mls/min 08/05/24 16:00 08/05/24 15:49 IV 08/12/24 15:59 2 mls/min Q24H MARIANELA Administration Insulin Aspart 0 units 08/05/24 16:30 08/06/24 12:43 Insulin Aspart Per Unit Charge SC 09/04/24 16:29 9 units ACHS MARIANELA Administration Lactobacillus Acidophilus 1,250 mg 08/06/24 09:00 08/06/24 07:38 Advanced Probiotic 625 Mg Capsule PO 09/05/24 08:59 1,250 mg DAILY MARIANELA Administration Levalbuterol HCl 0.63 mg 08/05/24 15:07 08/06/24 13:00 Levalbuterol Hcl 0.63 Mg/3 Ml Neb NEB 09/04/24 15:06 0.63 mg Q6R MARIANELA Administration Protocol Losartan Potassium 25 mg 08/06/24 09:00 08/06/24 07:38 Losartan Potassium 25 Mg Tab PO 09/05/24 08:59 25 mg DAILY MARIANELA Administration Magnesium Chloride 64 mg 08/05/24 21:00 08/06/24 07:41 Magnesium Chloride W/Calcium 64mg Delayed Rel Tab PO 09/04/24 20:59 64 mg BID MARIANELA Administration Multivitamins/Minerals 1 tab 08/06/24 09:00 08/06/24 07:38 Cerovite Adv Formula Tab PO 09/05/24 08:59 1 tab DAILY MARIANELA Administration Oxybutynin Chloride 5 mg 08/06/24 09:00 08/06/24 07:37 Oxybutynin Chloride Xl 5 Mg Tabcr PO 09/05/24 08:59 5 mg QAM MARIANELA Administration Umeclidinium/Vilanterol 1 puffs 08/06/24 09:00 08/06/24 07:41 Umeclidinium/Vilanterol 62.5/25mcg 7 Puffs/Inhaler INH 09/05/24 08:59 1 puffs DAILY MARIANELA Administration
[2024-08-06] MEDS: WARFARIN SOD 5 MG TAB PO SCH (17:45)
[2024-08-06 20:33] LABS: Adenovirus F 40/41 PCR Not Detected (NotDetected); Astrovirus PCR Not Detected (NotDetected); Campylobacter PCR Not Detected (NotDetected); Cryptosporidium PCR Not Detected (NotDetected); Cyclospora cayetanensis PCR Not Detected (NotDetected); Entamoeba histolytica PCR Not Detected (NotDetected); Enteroaggregative E.coli(EAEC) Not Detected (NotDetected); Enteropathogenic E.coli (EPEC) Not Detected (NotDetected); Enterotoxigenic E.coli (ETEC) Not Detected (NotDetected); Giardia lamblia PCR Not Detected (NotDetected); Norovirus GI/GII PCR Not Detected (NotDetected); Plesiomonas shigelloides PCR Not Detected (NotDetected); Rotavirus A PCR Not Detected (NotDetected); Salmonella PCR Not Detected (NotDetected); Sapovirus PCR Not Detected (NotDetected); Shiga-like Toxin E.coli (STEC) Not Detected (NotDetected); Shigella/Enteroinvasive E.coli Not Detected (NotDetected); Vibrio cholerae PCR Not Detected (NotDetected); Vibrio species PCR Not Detected (NotDetected); Yersinia enterocolitica PCR Not Detected (NotDetected)
[2024-08-06] MEDS: LORazepam 1 MG TAB PO PRN (21:25)
[2024-08-06] MEDS: ACETAMINOPHEN 325 MG TAB PO PRN (21:25)
[2024-08-07 09:01] LABS: INR 1.9 (0.9-1.1); Prothrombin Time 19.7 Seconds (9.0-12.0)
[2024-08-07 11:14] LABS: BUN Creatinine Ratio 21.6 (10-20); Calcium 8.8 mg/dl (8.6-10.3); Creatinine Clr Calc Pharmacy 45.7 ml/min; Potassium 4.5 mmol/L (3.5-5.1)
--- NOTE | 2024-08-07 13:46 | Cardiology Progress Note ---
Date of Service August 07, 2024 Assessment & Plan (1) Acute on chronic hypoxic respiratory failure: (2) Aspiration into airway: (3) Chronic heart failure with preserved ejection fraction: (4) Aortic stenosis, mild: (5) Permanent atrial fibrillation: (6) History of pulmonary embolism: (7) Abscess of chest wall: Plan Complex 88-year-old female presents with acute hypoxic respiratory failure with x-ray evidence of possible pneumonia/aspiration and mild pulmonary vascular congestion. Mild lower extremity edema noted on exam without orthopnea or PND. Continue IV furosemide 40mg BID. Transition to oral furosemide 40mg daily in next 24 - 48 hours. Monitor fluid balance, daily weight (standing scale only), GFR, and electrolytes. Heart rates are controlled on telemetry without beta-suraj therapy (documented beta-suraj intolerance). INR mildly subtherapeutic today, 1.9. Continue oral anticoagulation with warfarin goal INR 2.0-3.0. Recent echocardiogram performed in May confirming mild aortic valve stenosis and preserved LV systolic function. No need for repeat echocardiogram at this time. Continue antibiotic therapy as per hospitalist. Thank you for allow me to participate in the care of your patient. Cardiology will sign off for the weekend. Please call with additional concerns/questions. Admission and Anticipated Discharge Date Admission Date: August 05, 2024 Subjective 88-year-old female seen and examined at the bedside. Feeling somewhat better today. Edema mildly improved. Fluid balance -1100 cc. Telemetry reveals atrial fibrillation in the 60s and 70s. Daughter present at bedside, offers no additional concerns/complaints. Review of Systems Review of Systems: All systems reviewed & are unremarkable except as noted in Subjective Physical Exam Constitutional: well nourished and + obese; no acute distress Respiratory: no respiratory distress, no labored breathing and no retractions Auscultation: + diminished lung sounds (Right base); no rales, no rhonchi and no wheezes Cardiovascular: Rate/Rhythm: + irregularly irregular Heart Sounds: normal S1, normal S2 and + murmur (2/6 MITCH) Vessels: no JVD Extremities: + edema (mild 1+ B/L ankle edema with stasis changes) Gastrointestinal (Abdomen): Inspection/Auscultation: abdomen normal to inspection and normal bowel sounds; abdomen not distended Percussion/Palpation: abdomen soft; abdomen nontender, no guarding and abdomen not rigid Neurologic: CN's II-XI intact bilaterally and moves all extremities; no focal motor deficits Results & Data Vital Signs (Past 12 Hours) Vital Signs Temp Pulse Pulse Resp BP BP Pulse Ox 08/07/24 11:44 36.6 C 61 18 114/68 94 08/07/24 09:26 36.5 C 77 18 121/65 97 08/07/24 07:40 66 08/07/24 07:40 08/07/24 07:25 76 18 96 08/07/24 03:45 36.6 C 65 18 115/66 96 O2 Del Method O2 Flow Rate 08/07/24 11:44 Nasal Cannula 2 08/07/24 09:26 Nasal Cannula 2 08/07/24 07:40 08/07/24 07:40 Nasal Cannula 2 08/07/24 07:25 Nasal Cannula 2 08/07/24 03:45 Nasal Cannula 2 Laboratory Results Coagulation 08/07/24 Range/Units 08:17 PT 19.7 H (9.0-12.0) Seconds Comprehensive Metabolic Panel 08/07/24 Range/Units 08:20 Sodium 137 (136-145) mmol/L Potassium 4.5 (3.5-5.1) mmol/L Chloride 101 (98-107) mmol/L Carbon Dioxide 31 (21-32) mmol/L BUN 24 H (6-23) mg/dl Creatinine 1.11 (0.6-1.2) mg/dl Glucose 128 H (70-99(Fasting)) mg/dl Calcium 8.8 (8.6-10.3) mg/dl Intake and Output 08/06/24 08/07/24 08/07/24 22:59 06:59 14:59 Intake Total 920 / 1280 120 / 120 Output Total 1800 / 2305 500 / 2305 0 / 0 Balance -880 / -1025 -500 / -1025 120 / 120 Intake: Oral 920 / 1280 120 / 120 Output: Urine Amount (Catheter) 1800 / 2300 500 / 2300 Alas/Indwelling 1800 / 2300 500 / 2300 # Bowel Movements 0 / 0 Other: Other Intake Source SIPS Weight 121.5 kg Weight Measurement Method Built in [facility] (2) Aspiration into airway Encounter type: initial encounter Qualified Code(s): T17.908A - Unspecified foreign body in respiratory tract, part unspecified causing other injury, initial encounter
--- NOTE | 2024-08-07 15:38 | Hospitalist Progress Note ---
Date of Service August 07, 2024 Assessment & Plan (1) Acute on chronic hypoxic respiratory failure: (2) Acute on chronic heart failure with preserved ejection fraction: (3) Paroxysmal atrial fibrillation: (4) Abscess of chest wall: Plan Ms. Vital is an 88-year-old female with PMH of type 2 diabetes, hyperlipidemia with statin intolerance, COPD, chronic hypoxic resp failure on 2L NC O2 with exertion and HS, atrial fibrillation on Coumadin, hypertension, history of TIA, benign essential tremor, history of uterine cancer and other medical problems listed below is admitted for management of fever and SOB. Patient noted to be in acute heart failure. Patient also s/p I&D of abscess on chest 08/05. Patient remains on IV abx and IV furosemide. #Acute on chronic hypoxic respiratory failure, baseline 2L #Acute on chronic HFpEF last echo 06/03: EF 60-65%, severe biatrial enlargement, mild aortic valvular stenosis, calcified mitral apparatus low suspicion of pneumonia: procal 0.09, no active cough low suspicion for COPD exacerbation: no wheezing, subjective improvement with lasix Likely multifactorial in setting of decompensated CHF, Weight up form d/c 112kg --> 117.8kg Continue to monitor on telemetry Cardiology following: reviewed recommendation, continue IV Lasix BID Possible transition to PO in 24-48 hours daily weights, strict intake and output, low salt diet nebs prn for now encourage incentive spirometry, continue O2 supplementation, wean to keep 02 between 88-92% #Chest wall abscess/cellulitis #Sebaceous cyst pt with dressing changes, will consult surgery for eval as pt reporting drainage MRSA negative IV ertapenem for now #Hypomagnesemia trend lytes and replace prn #Paroxysmal A fib initially tachycardic, now rate WNL, not on rate/rhythm control Continue Coumadin for anticoagulation Trend INR, 2.0-3.0 goal #DM II A1c 7.0 Hold home agents SSI while in-patient BSG AC HS #HTN Continue losartan Monitor BP #CKD III Monitor renal function Avoid nephrotoxic agents as able Cr stable #Morbid obesity BMI 41 encourage activity as tolerated, plan for PT/OT DVT Px: Coumadin Code status: DNR/DNI PCP: Aure Dispo: admit to [facility] tele Admission and Anticipated Discharge Date Admission Date: August 05, 2024 Subjective Patient reports feeling subjectively better denies any acute concerns on exam, notes improvement in tenderness in BLE Physical Exam Constitutional: WD/WN, vitals as above Respiratory: normal respiratory effort, lungs clear to auscultation Cardiovascular: RRR, notable improvement in BLE edema trace, venous stasis changes Gastrointestinal (Abdomen): normal bowel sounds, soft, nontender, no hepatosplenomegaly Results & Data Results & Data Vital Signs (Past 12 Hours) Vital Signs Temp Pulse Pulse Resp BP BP Pulse Ox 08/07/24 15:32 36.5 C 68 18 126/67 97 08/07/24 14:00 63 08/07/24 13:58 60 16 94 08/07/24 11:44 36.6 C 61 18 114/68 94 08/07/24 09:26 36.5 C 77 18 121/65 97 08/07/24 07:40 66 08/07/24 07:40 08/07/24 07:25 76 18 96 08/07/24 03:45 36.6 C 65 18 115/66 96 O2 Del Method O2 Flow Rate 08/07/24 15:32 Nasal Cannula 2 08/07/24 14:00 08/07/24 13:58 Nasal Cannula 2 08/07/24 11:44 Nasal Cannula 2 08/07/24 09:26 Nasal Cannula 2 08/07/24 07:40 08/07/24 07:40 Nasal Cannula 2 08/07/24 07:25 Nasal Cannula 2 08/07/24 03:45 Nasal Cannula 2
[2024-08-07] MEDS: AMMONIUM LACTATE 12% LOTION 225 GM BTL EXT SCH (17:38)
[2024-08-08 07:30] LABS: Hematocrit (blood only) 34.2 % (37.0-47.0); Hemoglobin 10.9 g/dl (12.0-16.0); Mean Corpuscular Hemoglobin 29.6 pg (25.0-34.0); Mean Corpuscular Hgb Conc 31.9 g/dL (32.0-36.0); Mean Corpuscular Volume 92.9 fL (80.0-100.0); Mean Platelet Volume 10.1 fL (9.4-12.4); Platelet Count 170 K/uL (130-400); RDW Coefficient of Variation 13.9 % (11.5-14.5); RDW Standard Deviation 47.7 fL (36.4-46.3); Red Blood Count 3.68 M/uL (4.20-5.40); White Blood Count 4.64 K/ul (4.8-10.8)
[2024-08-08 07:41] VITALS: O2SAT 96
[2024-08-08 07:53] LABS: BUN Creatinine Ratio 27.8 (10-20); Calcium 8.8 mg/dl (8.6-10.3); Est GFR (Non-African American) 51.8 ml/min; Potassium 4.7 mmol/L (3.5-5.1)
[2024-08-08 07:54] LABS: INR 1.9 (0.9-1.1); Prothrombin Time 19.9 Seconds (9.0-12.0)
--- NOTE | 2024-08-08 09:15 | Hospitalist Progress Note ---
Date of Service August 08, 2024 Assessment & Plan (1) Acute on chronic hypoxic respiratory failure: (2) Acute on chronic heart failure with preserved ejection fraction: (3) Paroxysmal atrial fibrillation: (4) Abscess of chest wall: Plan Ms. Vital is an 88-year-old female with PMH of type 2 diabetes, hyperlipidemia with statin intolerance, COPD, chronic hypoxic resp failure on 2L NC O2 with exertion and HS, atrial fibrillation on Coumadin, hypertension, history of TIA, benign essential tremor, history of uterine cancer and other medical problems listed below is admitted for management of fever and SOB. Patient noted to be in acute heart failure. Patient also s/p I&D of abscess on chest 08/05. Patient remains on IV abx and IV furosemide. #Acute on chronic hypoxic respiratory failure, baseline 2L #Acute on chronic HFpEF last echo 06/03: EF 60-65%, severe biatrial enlargement, mild aortic valvular stenosis, calcified mitral apparatus low suspicion of pneumonia: procal 0.09, no active cough low suspicion for COPD exacerbation: no wheezing, subjective improvement with lasix Likely multifactorial in setting of decompensated CHF, Weight up form d/c 112kg --> 117.8kg Continue to monitor on telemetry Cardiology following: reviewed recommendation, last IV lasix this am Transition to PO lasix in am daily weights, strict intake and output, low salt diet nebs prn for now encourage incentive spirometry, continue O2 supplementation, wean to keep 02 between 88-92% #Chest wall abscess/cellulitis #Sebaceous cyst pt with dressing changes, will consult surgery for eval as pt reporting drainage MRSA negative Will continue with po doxy and discontinue ertapenem #Hypomagnesemia trend lytes and replace prn #Paroxysmal A fib initially tachycardic, now rate WNL, not on rate/rhythm control Continue Coumadin for anticoagulation Trend INR, 2.0-3.0 goal #DM II A1c 7.0 Hold home agents SSI while in-patient BSG AC HS #HTN Continue losartan Monitor BP #CKD III Monitor renal function Avoid nephrotoxic agents as able Cr stable #General Weakness #Morbid obesity BMI 41 encourage activity as tolerated, Pending rehab DVT Px: Coumadin Code status: DNR/DNI PCP: Aure Dispo: admit to [facility] Admission and Anticipated Discharge Date Admission Date: August 05, 2024 Subjective NAEO Reports feeling well overall this morning Physical Exam Constitutional: WD/WN, vitals as above Respiratory: diminished 2/2 habitus, 2 L NC no distress noted Cardiovascular: MITCH+ RRR Musculoskeletal: noted improvement in BLE edema, no tenderness on lower extremities Results & Data Results & Data Vital Signs (Past 12 Hours) Vital Signs Temp Pulse Pulse Resp BP BP Pulse Ox 08/08/24 07:39 37.0 C 78 18 139/71 96 08/08/24 02:44 36.5 C 74 18 111/64 95 08/08/24 00:09 08/07/24 23:15 66 08/07/24 22:28 36.8 C 64 20 115/66 95 O2 Del Method O2 Flow Rate 08/08/24 07:39 Nasal Cannula 2 08/08/24 02:44 Nasal Cannula 2 08/08/24 00:09 Room Air, Nasal Cannula 2 08/07/24 23:15 08/07/24 22:28 Nasal Cannula 2 Laboratory Results Short CBC 08/08/24 Range/Units 05:37 WBC 4.64 L (4.8-10.8) K/ul Hgb 10.9 L (12.0-16.0) g/dl Hct 34.2 L (37.0-47.0) % Plt Count 170 (130-400) K/uL BMP 08/07/24 08/08/24 08:20 05:37 Sodium 137 137 Potassium 4.5 4.7 Chloride 101 101 Carbon Dioxide 31 30 BUN 24 H 27 H Creatinine 1.11 0.97 Glucose 128 H 114 H Calcium 8.8 8.8 Medications Administered Home Medications Medication Instructions Recorded Confirmed Last Taken acetaminophen 500 mg tablet 1,000 mg PO Q6H PRN Pain 06/06/23 08/05/24 Unknown (Tylenol Extra Strength) albuterol sulfate 90 mcg/actuation 2 puff inhalation Q4 PRN Shortness 06/06/23 08/05/24 Unknown aerosol inhaler Of Breath Or Wheezing atorvastatin 10 mg tablet 10 mg PO HS 06/06/23 08/05/24 05/29/24 gabapentin 300 mg capsule 300 mg PO UD 06/06/23 08/05/24 05/29/24 lorazepam 1 mg tablet 1 mg PO HS PRN ANXIETY/SLEEP 06/06/23 08/05/24 Unknown losartan 25 mg tablet 25 mg PO DAILY 06/06/23 08/05/24 05/30/24 metformin 500 mg tablet,extended 500 mg PO BIDM 06/06/23 08/05/24 05/30/24 08:00 release 24 hr solifenacin 5 mg tablet 5 mg PO QAM 06/06/23 08/05/24 05/30/24 vit C 250 mg-vit E 90 mg-zinc 40 1 tab PO BIDM 06/06/23 08/05/24 05/30/24 08:00 mg-copper 1 [id number] capsule (PreserVision AREDS-2) warfarin 5 mg tablet 5 mg PO SUTUWETHFRSA@1600 06/06/23 08/05/24 05/29/24 5 MG fluticasone fur. 200 mcg-umeclid 1 inh inhalation DAILY 05/30/24 08/05/24 05/30/24 62.5 mcg-vilant 25 mcg inhalat.powder (Trelegy Ellipta) loperamide 2 mg capsule 2 mg PO DIRECTED PRN Diarrhea 05/30/24 08/05/24 Unknown nystatin 100,000 unit/gram topical 1 applic topical BID PRN ABD FOLDS 05/30/24 08/05/24 Unknown powder (Nyamyc) NEEDED sulfamethoxazole 800 1 tab PO BID 05/30/24 08/05/24 Unknown mg-trimethoprim 160 mg tablet triamcinolone acetonide 0.1 % 1 applic topical BID PRN SKIN 05/30/24 08/05/24 Unknown topical cream IRRITATION NEEDED furosemide 20 mg tablet 40 mg (2 x 20 mg) PO DAILY #0 tabs 06/02/24 08/05/24 05/30/24 warfarin 2.5 mg tablet 2.5 mg PO MO@1600 08/01/24 08/05/24 Unknown L.acidop,casei,lactis,rham-B.lact,minesh 1 cap PO DAILY 10 days #10 caps 08/03/24 08/05/24 Unknown 625 mg (10 billion cell) capsule (Advanced Probiotic) magnesium chloride 64 mg 64 mg PO BID #30 tabs 08/03/24 08/05/24 Unknown (magnesium chloride) tablet,delayed release (Mag 64) fluticasone fur. 200 mcg-umeclid 1 inh inhalation DAILY 08/05/24 08/05/24 Unknown 62.5 mcg-vilant 25 mcg inhalat.powder (Janny Ellipta) Active Medications Generic Name Dose Route Start Last Admin Trade Name Freq PRN Reason Stop Dose Admin Acetaminophen 650 mg 08/05/24 15:07 08/07/24 20:58 Acetaminophen 325 Mg Tab PO 09/04/24 15:06 650 mg Q4H PRN Administration Pain or Fever Atorvastatin Calcium 10 mg 08/05/24 21:00 08/07/24 21:00 Atorvastatin 10 Mg Tab PO 09/04/24 20:59 10 mg HS MARIANELA Administration Doxycycline Hyclate 100 mg 08/05/24 21:00 08/08/24 08:13 Doxycycline Hyclate 100 Mg Cap PO 08/12/24 20:59 100 mg BID MARIANELA Administration Fluticasone Furoate 1 puffs 08/06/24 09:00 08/08/24 08:11 Fluticasone Furoate 200mcg 14 Puffs/Inhaler INH 09/05/24 08:59 1 puffs DAILY MARIANELA Administration Gabapentin 300 mg 08/06/24 09:00 08/08/24 08:13 Gabapentin 300 Mg Cap PO 09/05/24 08:59 300 mg DAILY MARIANELA Administration Gabapentin 600 mg 08/05/24 21:00 08/07/24 21:00 Gabapentin 300 Mg Cap PO 09/04/24 20:59 600 mg HS MARIANELA Administration Insulin Aspart 0 units 08/05/24 16:30 08/07/24 20:57 Insulin Aspart Per Unit Charge SC 09/04/24 16:29 1 units ACHS MARIANELA Administration Lactic Acid 1 gm 08/07/24 15:40 08/08/24 08:13 Ammonium Lactate 12% Lotion 225 Gm Btl EXT 09/06/24 15:39 1 gm BID MARIANELA Administration Lactobacillus Acidophilus 1,250 mg 08/06/24 09:00 08/08/24 08:12 Advanced Probiotic 625 Mg Capsule PO 09/05/24 08:59 1,250 mg DAILY MARIANELA Administration Lorazepam 1 mg 08/05/24 15:07 08/07/24 20:58 Lorazepam 1 Mg Tab PO 09/04/24 15:06 1 mg HS PRN Administration ANXIETY/SLEEP Losartan Potassium 25 mg 08/06/24 09:00 08/08/24 08:12 Losartan Potassium 25 Mg Tab PO 09/05/24 08:59 25 mg DAILY MARIANELA Administration Magnesium Chloride 64 mg 08/05/24 21:00 08/08/24 08:13 Magnesium Chloride W/Calcium 64mg Delayed Rel Tab PO 09/04/24 20:59 64 mg BID MARIANELA Administration Multivitamins/Minerals 1 tab 08/06/24 09:00 08/08/24 08:13 Cerovite Adv Formula Tab PO 09/05/24 08:59 1 tab DAILY MARIANELA Administration Oxybutynin Chloride 5 mg 08/06/24 09:00 08/08/24 08:12 Oxybutynin Chloride Xl 5 Mg Tabcr PO 09/05/24 08:59 5 mg QAM MARIANELA Administration Umeclidinium/Vilanterol 1 puffs 08/06/24 09:00 08/08/24 08:11 Umeclidinium/Vilanterol 62.5/25mcg 7 Puffs/Inhaler INH 09/05/24 08:59 1 puffs DAILY MARIANELA Administration Warfarin Sodium 5 mg 08/06/24 16:00 08/07/24 17:39 Warfarin Sod 5 Mg Tab PO 09/05/24 15:59 5 mg [id number] MARIANELA Administration
--- NOTE | 2024-08-08 11:09 | Discharge Summary ---
Discharge Summary Date of Service August 08, 2024 Principal Dx & Hospital Course #1 = Principal Diagnosis (1) Acute on chronic hypoxic respiratory failure: (2) Acute on chronic heart failure with preserved ejection fraction: (3) Paroxysmal atrial fibrillation: (4) Abscess of chest wall: Plan Ms. Vital is an 88-year-old female with PMH of type 2 diabetes, hyperlipidemia with statin intolerance, COPD, chronic hypoxic resp failure on 2L NC O2 with exertion and HS, atrial fibrillation on Coumadin, hypertension, history of TIA, benign essential tremor, history of uterine cancer and other medical problems listed below is admitted for management of fever and SOB. Patient noted to be in acute heart failure. Patient also s/p I&D of abscess on chest 08/05. Patient was treated with IV abx and IV furosemide with noted improvement in lower extremity swelling and reduction in O2 requirements to baseline. Family agreed to rehab stay as patient weak after multiple admissions in last 2 months. On day of discharge, patient denied chest pain, SOB, or other acute concerns. Patient tolerated compression stockings and sitting in bedside chair. Patient reports excitement for rehab. Patient to continue on short course of PO doxy to complete 7 days for cellulitis. Anterior chest incision from I&D healing nicely. #Acute on chronic hypoxic respiratory failure, baseline 2L resolved #Acute on chronic HFpEF resolved last echo 06/03: EF 60-65%, severe biatrial enlargement, mild aortic valvular stenosis, calcified mitral apparatus low suspicion of pneumonia: procal 0.09, no active cough low suspicion for COPD exacerbation: no wheezing, subjective improvement with lasix Likely multifactorial in setting of decompensated CHF, Weight up form d/c 112kg --> 117.8kg Continue to monitor on telemetry Cardiology following: Transition to PO lasix in am HH diet and 2L FR as OP O2 back to baseline 2L on d/c #Chest wall abscess/cellulitis #Sebaceous cyst pt with dressing changes, will consult surgery for eval as pt reporting drainage MRSA negative D/C on doxycycline 100mg bid for 9 more doses (EOT 08/12) #Hypomagnesemia continue po supplement BID #Paroxysmal A fib initially tachycardic, now rate WNL, not on rate/rhythm control Continue Coumadin for anticoagulation Trend INR, 2.0-3.0 goal #DM II A1c 7.0 resume home agents #HTN Continue losartan Monitor BP #CKD III Monitor renal function Avoid nephrotoxic agents as able Cr stable #General Weakness #Morbid obesity BMI 41 encourage activity as tolerated, Discharge to rehab Notes For Next Care Provider Medication Changes From Visit Doxycycline 100mg BID 08/12/2024 Admission HPI Per Admitting Provider This is an 88-year-old female with PMH of type 2 diabetes, hyperlipidemia with statin intolerance, COPD, chronic hypoxic resp failure on 2L NC O2 with exertion and HS, atrial fibrillation on Coumadin, hypertension, history of TIA, benign essential tremor, history of uterine cancer and other medical problems listed below who presents from home secondary to worsening SOB and fever. History was obtained from patient and family at bedside. She was seen by home health nurse today and was noted to have a fever of 101. It was also noted that her oxygen saturation was low and was recommended family bring her to ER. Pt reports increased SOB with exertion, productive cough with white/clear sputum, increased abd distension. She feels some abd discomfort, "as if it is being stretched." Family reports drainage from her chest wound. She has been taking her medications as normal. She had a normal bowel movement this morning. Pt denies dizziness, lightheaded, change in vision, headache, chest pain, hemoptysis, n/v/d. She has been drinking normal. Per family at bedside she was drinking 1.5 cups of the [facility] cups. She took her trelegy inhaler the past 2 days. In ED pt had increased O2 requirement saturating at 96 % on 4L. She did have a mild elevated temp at 37.6. She did meet SIRS criteria in ED 2/2 tachycardia and tachypnea. CXR showed Cardiomegaly with pulmonary vascular congestion.2. There are increasing dependent airspace opacities which could represent progressive atelectasis. Correlate clinically for evidence of a superimposed pneumonia/aspiration pneumonitis. Radiographic follow-up to resolution is recommended. ED provider ordered furosemide. Admission Exam Per Admitting Provider Vitals signs as noted above General Appearance:Obese, no apparent distress, Elderly Head: normocephalic, Atraumatic Eyes: normal inspection, EOMI Neck: supple, Trachea midline Respiratory/Chest: Decreased breath sounds, scant wheezes, crackles, No accessory muscle use Cardiovascular: Irregularly irregular, No murmur, + wound in dressing Abdomen/GI:Soft, Non tender, protuberant,+ abdominal hernia, bowel sounds present Extremities/Musculoskeletal:normal inspection, 1+ B/L LE edema Neurologic/Psych:AAOX3, grossly no focal neurological deficits Skin: normal color, warm Discharge Exam Constitutional WD/WN, vitals as above Respiratory no distress, diminshed 2.2 habitus, on 2L Cardiovascular RRR MITCH+ Gastrointestinal (Abdomen) normal bowel sounds, soft, nontender, no hepatosplenomegaly Musculoskeletal compression stockings in place, resolution of pitting edema Neurologic PERRL, EOMI, accommodation nl, no face palsy, no dysarthria Updated Medication List Medication Instructions Recorded Confirmed Type acetaminophen 500 mg tablet 1,000 mg PO Q6H PRN Pain 06/06/23 08/05/24 History (Tylenol Extra Strength) albuterol sulfate 90 mcg/actuation 2 puff inhalation Q4 PRN Shortness 06/06/23 08/05/24 History aerosol inhaler Of Breath Or Wheezing atorvastatin 10 mg tablet 10 mg PO HS 06/06/23 08/05/24 History gabapentin 300 mg capsule 300 mg PO UD 06/06/23 08/05/24 History lorazepam 1 mg tablet 1 mg PO HS PRN ANXIETY/SLEEP 06/06/23 08/05/24 History losartan 25 mg tablet 25 mg PO DAILY 06/06/23 08/05/24 History metformin 500 mg tablet,extended 500 mg PO BIDM 06/06/23 08/05/24 History release 24 hr solifenacin 5 mg tablet 5 mg PO QAM 06/06/23 08/05/24 History vit C 250 mg-vit E 90 mg-zinc 40 1 tab PO BIDM 06/06/23 08/05/24 History mg-copper 1 vm-nnyjbu-njodgy capsule (PreserVision AREDS-2) warfarin 5 mg tablet 5 mg PO SUTUWETHFRSA@1600 06/06/23 08/05/24 History fluticasone fur. 200 mcg-umeclid 1 inh inhalation DAILY 05/30/24 08/05/24 History 62.5 mcg-vilant 25 mcg inhalat.powder (Trelegy Ellipta) loperamide 2 mg capsule 2 mg PO DIRECTED PRN Diarrhea 05/30/24 08/05/24 History nystatin 100,000 unit/gram topical 1 applic topical BID PRN ABD FOLDS 05/30/24 08/05/24 History powder (Nyamyc) NEEDED triamcinolone acetonide 0.1 % 1 applic topical BID PRN SKIN 05/30/24 08/05/24 History topical cream IRRITATION NEEDED furosemide 20 mg tablet 40 mg (2 x 20 mg) PO DAILY #0 tabs 06/02/24 08/05/24 Rx warfarin 2.5 mg tablet 2.5 mg PO MO@1600 08/01/24 08/05/24 History L.acidop,casei,lactis,rham-B.lact,minesh 1 cap PO DAILY 10 days #10 caps 08/03/24 08/05/24 Rx 625 mg (10 billion cell) capsule (Advanced Probiotic) magnesium chloride 64 mg 64 mg PO BID #30 tabs 08/03/24 08/05/24 Rx (magnesium chloride) tablet,delayed release (Mag 64) ammonium lactate 5 % lotion 1 applic EXT BID 30 days #0 grams 08/08/24 Rx (Lac-Hydrin Five) doxycycline hyclate 100 mg capsule 100 mg PO BID 4 days #0 caps 08/08/24 Rx Hospital Stay Data Consultations 08/05/24 13:21 ED Decision to Admit Stat 08/05/24 14:23 Consult General Surgery Routine 08/05/24 15:07 Consult Cardiology Routine Diagnostic Imagining Performed 08/05/24 14:09 US abdomen limited Routine Discharge Instructions Given to Patient (Per Discharging Provider) You were admitted for shortness of breath and increased oxygen requirements. Your imaging revealed vascular congestion. You also had notable swelling of your lower extremities You were evaluated by Cardiology and placed on IV furosemide with notable improvement. You also underwent drainage of your cyst on you chest. You will continue on the following: -Doxycycline 100mg two times a day for 9 more doses {end of treatment 08/12/2024} You were noted to have stasis dermatitis, therefore Amlactin was applied two times a day to your lower extremities. This can be continued. You will resume all other home meds as prescribed. Total Time Total Time Spent Total Time Spent (In Minutes): 45
[2024-08-08 11:50] VITALS: RESP 16; TEMP 97.7
[2024-08-08 13:48] VITALS: BP 111/64; PULSE 67
[2024-08-09] MEDS ORDERED: FUROSEMIDE 40 MG TAB PO SCH (09:00)
[2024-08-10] MEDS ORDERED: WARFARIN SOD 2.5 MG TAB PO SCH (16:00)
== END 2024-08-08 15:19 | DRG 291 ==
LOC: ED 10:39 → SUATTDRO 13:31 → 2W 13:31

== ENCOUNTER 2024-08-29 10:10 | Inpatient (IN) ==
--- OUTSIDE RECORDS SUMMARY | 2024-08-29 10:16 | External Medical Summary ---
Author Name Unknown Address Unknown Organization [id number] [address] [place] [id number] Laboratory Report Ordering Provider Test Date Status CLAY ARTHUR 08/16/2024 06:07:21 Final Observation Date Value Abnormality Reference (Units ) Status WBC, Total 08/16/2024 06:07:21 4.83 4.00-10.8 0 (K/uL) Final RBC 08/16/2024 06:07:21 3.75 3.85-5.15 (M/uL) Final Hemoglobin 08/16/2024 06:07:21 11.2 Below low normal 12 .0-15.3 (g/dL) Final HCT 08/16/2024 06:07:21 36.2 36.0-45.2 (%) Final MCV 08/16/2024 06:07:21 96.5 81.5-97.5 (fL) Final MCH 08/16/2024 06:07:21 29.9 27.0-34.0 (pg) Final MCHC 08/16/2024 06:07:21 30.9 32.0-36.0 (g/dL) Final RDW 08/16/2024 06:07:21 14.4 11.5-15.5 (%) Final Platelets 08/16/2024 06:07:21 197 140-400 (K /uL) Final MPV 08/16/2024 06:07:21 10.1 6.6-11.1 ( fL) Final Performing Location [facility] [address] [place] [id number]
--- OUTSIDE RECORDS SUMMARY | 2024-08-29 10:16 | External Medical Summary | Summary of Care ---
Author Name Unknown Organization [facility] Address [address] [place] [address] Phone [phone] Care Team Providers Care Lubrication Supervisor Name Role Phone Duong Looney MD Primary Care Provider [phone] Encounter Details Date Type Department Care Team (Late st Contact Info) Description 08/19/2024 Result Scan Unspecified Department Cammie Salinas, [facility] [address] [place] [address] <No scans attached> Allergies Active Allergy Reactions Criticality Noted Date Comments Adhesive Tape 03/11/2003 redness Latex 01/18/2005 rash Lisinopril Cough Low 03/18/2014 Penicillins 07/14/1999 swelling Prednisone 04/20/2005 Pt says it makes her "bleed into her intestines" documented as of this encounter (statuses as of 08/25/2024) Medications Medication Sig Dispensed Refills Start Date End Date Status Blood Glucose Monitoring Suppl (1000memoriesTOUCH ULTRA 2) w/Device KITIndications:Type 2 diabetes mellitus [...] E11.9 100 Strip 3 04/30/2024 Active Nystatin 101590 UNIT/GM External Powder (Nyamyc)Indications:C andidal skin infection [...] the morning. 90 Tablet 3 07/30/2024 Active documented as of this encounter (statuses as of 08/25/2024) Active Problems Problem Noted Date Diagnosed Date [...] as of this encounter (statuses as of 08/25/2024) Resolved Problems Problem Noted Date Diagnosed Date [...] as of this encounter (statuses as of 08/25/2024) Immunizations Name Administration Dates Next Due COVID-19 [...] Recomb, Adjuvant, PF,0.5 Ml (Arexvy) 10/14/2023 Seasonal Influenza Vac., MDV , IM, 0.5 mL (Fluzone) 08/22/2016,08/13/2014,08/11/2013,04/2012,08/20/2011,09/08/2010,08/01/20,08/11/2008,08/13/2007 Seasonal Influenza, PF, 6 M & above, IM , (FluLaval or Fluzone) 09/01/2020,08/17/2019,07/25/2018,08/12 Seasonal Influenza, Quadriva lent Hd (Fluzone Hd) 09/12/2023,09/11/2022,08/04/2021 Seasonal Influenza, Quadriva lent, No Preserve, IM 08/12/2015 TDAP (age 10 and older)(Boostrix) 10/26/2015 10/26/2016 [...] Care Team (Late st Contact Info) Description 08/26/2024 5:50 PM EDT 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 Pharmacy, [place] [address] [facility], [place] [address] [facility] [address] [place] [facility] [place] [address] 09/02/2024 11:50 AM EDT 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 Pharmacy, [place] [address] [facility], [place] [address] [facility] [address] [facility], [place] [address] 09/22/2024 3:00 PM EST Office Visit Cardiology, [facility] [place] [address] Duong Paz PA-C [address] [facility] [address] 11/23/2024 12:20 PM EST Office Visit Family [facility], [place] [address] [facility] [address] Du[facility] Looney [facility] [address] [facility] [address] 03/09/2025 11:45 AM EDT Office Visit Urology, [facility] [address] [facility] [place] [address] Jeremy Vital MD [address] [place] [address] Health Maintenance Due Date Last Done Comments Zoster Vaccines (2 of 3) 05/14/2014 03/19/2014, 03/2014 Adult Wellness Visit 02/15/2023 02/15/2022 COVID-19 Vaccine ( season) 2024 09/27/2023, 09/27/2023, 08/07/2022, Additional history exists DXA Scan 05/19/2025 01/29/2006, 01/29/2006 Postp oned from 01/29/2011 (Patient Declined After Education) Depression Screening 05/20/2025 05/20/2024 O2 ASSESSMENT COMPLETED IN PAST YEAR FOR COPD 08/24/2025 08/24/2024 Influenza Vaccine (FLU shot) Completed 08/24/2024, 09/12/2023, 09/11/2022, Additional history exists documented as of this encounter Medical Devices Not on filedocumented as of this encounter Procedures Procedure Name Priority Date/Time Associated Diagnosis Comments OUTSIDE LAB RESULTS 08/19/2024 documented in this encounter Results * OUTSIDE LAB RESULTS (08/19/2024) 08/19/2024 Cammie Salinas [facility] LABORATORY documented in this encounter Advance Directives * No Code Status (Latest Code Status on File) Date Activated Date Inactivated Comments 10/18/2004 9:59 AM 10/18/2004 10:59 AM Care Teams Lubrication Supervisor Relationship Specialty Start Date End Date Duong Looney MD [address] [place] [address] PCP - General 07/31/00 documented as of this encounter
--- OUTSIDE RECORDS SUMMARY | 2024-08-29 10:16 | External Medical Summary | Summary of Care ---
Author Name Unknown Organization [facility] Address [address] [place] [address] Phone [phone] Care Team Providers Care Dixonac Operator Name Role Phone Duong Looney MD Primary Care Provider [phone] Reason for Visit * Reason Onset Date Comments Test Results 08/04/2024 [facility] arge Info Encounter Details Date Type Department Care Team ([facility] st Contact Info) Description 08/04/2024 Telephone [facility] [address] [place] [facility] [place] [address] Duong Looney MD [address] [place] [address] Test Results ([facility] Discharge Info) Allergies Active Allergy Reactions Criticality Noted Date Comments Adhesive Tape 03/11/2003 redness Latex 01/18/2005 rash Lisinopril Cough Low 03/18/2014 Penicillins 07/14/1999 swelling Prednisone 04/20/2005 Pt says it makes her "bleed into her intestines" documented as of this encounter (statuses as of 08/07/2024) Medications Medication Sig Dispensed Refills Start Date End Date Status Blood Glucose Monitoring Suppl (KaptureTOUCH ULTRA 2) w/Device KITIndications:Type 2 diabetes mellitus with hemoglobin A1c goal of less than 8.0% ([facility]) Use as directed to test blood sugar [...] mellitus with diabetic neuropathy, unspecified whether buttermaker continuous churn insulin use ([facility]),Restless leg syndrome take 1 capsule by mouth [...] hemoglobin A1c goal of less than 8.0% ([facility]) TEST once daily E11.9 100 Strip 3 04/30/2024 Active Nystatin 207006 UNIT/GM External Powder (Nyamyc)Indications:C andidal skin infection [...] as of this encounter (statuses as of 08/07/2024) Active Problems Problem Noted Date Diagnosed Date [...] as of this encounter (statuses as of 08/07/2024) Resolved Problems Problem Noted Date Diagnosed Date Resolved Date care home current use of ant icoagulant therapy [...] as of this encounter (statuses as of 08/07/2024) Immunizations Name Administration Dates Next Due COVID-19 [...] encounter Miscellaneous Notes * Telephone Encounter - Lora Stack LPN - 08/07/2024 2:27 PM EDT Pt is currently admitted to [facility] Wound culture printed & placed on desk * Telephone Encounter - Duong Looney MD - 08/04/2024 5:05 PM EDT Can we get a copy of the wound culture result. This was unavailable on discharge summary. * Telephone Encounter - iLsa Kirkland LPN - 08/04/2024 9:58 AM EDT Please advise. Discharge note is on media. * Telephone Encounter - Galileo Infante OSA - 08/04/2024 9:33 AM EDT Who is Requesting Test Results: Ana Mason, patient's daughter and patient Primary Care Provider : Duong Looney MD Tests Results Requested : [facility] Date of Test : 08.03.24 Location of Test: [facility]/On Discharge papers viewable in Media folder. Ordering [...] 08/19/2024 1:30 PM EDT Office Visit Urology, [address] [place] [address] Jeremy Vital MD [address] [place] [address] 08/20/2024 6:00 AM EDT 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 [place] [address] [facility] [address] [facility] [address] [facility] [address] 09/02/2024 11:50 AM EDT 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, [place] [address] [facility] [address] [facility] [address] [place] [facility] [place] [address] 09/22/2024 3:00 PM EST Office Visit Cardiology, [facility] [address] [place] [address] Duong Paz, PA-C [address] [place] [address] 11/23/2024 12:20 PM EST Office Visit [facility], [place] [address] [facility] [place] [phone] Duong Looney MD [address] [facility] [place] [address] Health Maintenance Due Date Last Done Comments [...] 9:59 AM 10/18/2004 10:59 AM Care Teams Dixonac Operator Relationship Specialty Start Date End Date Duong Looney MD [address] [place] [address] PCP - General 07/31/00 documented as of this encounter
--- OUTSIDE RECORDS SUMMARY | 2024-08-29 10:16 | External Medical Summary ---
Author Name Unknown Address Unknown Organization K09:[facility] [place] [id number] Laboratory Report Ordering Provider Test Date Status CALY ARTHUR 08/18/2024 05:54:12 Final Warfarin Therapy
INR: 2 .0-3.0 conventional anticoagulation
INR: 2.5- 3.5 high intensity anticoagulation Observation Date Value Abnormality Reference (Units ) Status PT 08/18/2024 05:54:12 31.4 Above high normal 11 .6-15.2 (seconds) Final INR 08/18/2024 05:54:12 3.0 Above high normal 0. 8-1.2 Final Performing Location [facility] [place] [address]
--- OUTSIDE RECORDS SUMMARY | 2024-08-29 10:16 | External Medical Summary ---
Author Name Unknown Address Unknown Organization K09:[facility] [place] [facility] [place] [address] Laboratory Report Ordering Provider Test Date Status CLAY ARTHUR 08/17/2024 06:30:19 Final Warfarin Therapy
INR: 2 .0-3.0 conventional anticoagulation
INR: 2.5- 3.5 high intensity anticoagulation Observation Date Value Abnormality Reference (Units ) Status PT 08/17/2024 06:30:19 30.5 Above high normal 11 .6-15.2 (seconds) Final INR 08/17/2024 06:30:19 2.9 Above high normal 0. 8-1.2 Final Performing Location [facility] [place] [address]
--- OUTSIDE RECORDS SUMMARY | 2024-08-29 10:16 | External Medical Summary | Summary of Care ---
Author Name Unknown Organization [facility] Address [address] [place] [address] Phone [phone] Care Team Providers Care Record Tabulating Clerk Name Role Phone Duong Looney MD Primary Care Provider [phone] Reason for Visit * Reason Comments Dosage Adjustment In Person (Anticoag Cl inic) Encounter Details Date Type Department Care Team (Latest Contact Info) Description 08/24/2024 3:00 PM EDT 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 Pharmacy, [address] [address] [facility] [address] [place] [address] 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 management encounter*; Personal history of TIA [...] End Date Status Blood Glucose Monitoring Suppl ([employer] ULTRA 2) w/Device KITIndications:Type 2 diabetes mellitus [...] diabetes mellitus with diabetic neuropathy, unspecified whether bed bug exterminator insulin use ([facility]),Restless leg syndrome take 1 capsule by mouth [...] E11.9 100 Strip 3 04/30/2024 Active Nystatin 510418 UNIT/GM External Powder (Nyamyc)Indications:C andidal skin infection [...] the morning. 90 Tablet 3 07/30/2024 Active Magnesium Cl-Calcium Carbonate 71.5-119 MG Oral Tablet Delayed Release 64 mg. 08/03/2024 Active Ammonium Lactate 5 % External Lotion 2 times a day. 08/08/2024 Activ e documented as of this encounter (statuses as [...] NEURO DZ 09/08/2009 Overview: Per Diabetes Taxonomy. bed bug exterminator current use of anticoagulant therapy 0 [...] Noted Date Diagnosed Date Resolved Date 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 current use of ant icoagulant therapy 11/25/2020 [...] Vac., MDV , IM, 0.5 mL (Fluzone) 08/22/2016,08/13/2014,08/11/2013,04/2012,08/20/2011,09/08/2010,08/01/20 09,08/11/2008,08/13/2007 Seasonal Influenza, High Dos e, Trivalent, PF, IM (Fluzone HD) 08/24/2024 Seasonal Influenza, PF, 6 M & above, [...] of this encounter Progress Notes * Cammie Salinas, [facility] - 08/24/2024 3:00 PM EDT Images from the original note were not included. Medication Therapy Disease Management - 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 Patient: Keila Vital | : 1935 Subjective Patient-Reported Symptoms: Patient Findings Positives: Change in medications (started magnesium and probiotic-- no interaction), Hospital admission (admitted at [facility] 08/05-08/08 for respiratory failure and diastolic HF exacerbation + abscess of chest wall. Discharged to [facility]; [facility] ) Negatives: Signs/symptoms of thrombosis, Signs/symptoms of bleeding, Change in health, Change in alcohol use, Change in activity, Upcoming invasive procedure, Missed doses, Extra doses, Change in diet/appetite, Bruising Comments: Warfarin was managed by the [facility] team Patient instructed to take 5 mg on Saturday, Aug 21 Objective Current Warfarin Dose As of 08/24/2024 Warfarin maintenance plan: 2.5 mg (5 mg x 0.5) every Mon, Fri; 5 mg (5 mg x 1) all other days INR Result As of 08/24/2024 INR goal: 2.0-3.0 INR used for dosin.4 (08/24/2024) Assessment & Plan Warfarin Plan As of 08/24/2024 Full warfarin instructions: 08/25: Hold; 08/26: 2.5 mg; Otherwise 2.5 mg every Mon, Fri; 5 mg all other days Next INR check: 09/02/2024 Repeat PT/INR in 10 day(s) Weekly dose: returned to [facility] dose Additional Dosing Information: Description Takes in AM I spent a total of 10-19 minutes (exact time 10 mins) on the date of service in preparation, delivery, and documentation of the care provided to Keila Vital excluding any time spent in the performance of separately billed services or time spent by another provider/QHP. Cammie Salinas [facility] Clinical Pharmacist 08/24/2024, 3:00 PM documented in this encounter Plan of Treatment Upcoming Encounters Date Type Department Care Team (Late st Contact Info) Description 08/26/2024 5:50 PM EDT 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 Pharmacy, [place] [address] [place] [place] [id number] [facility] [address] [place] [facility] [place] [address] 09/02/2024 11:50 AM EDT 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 Pharmacy, [place] [address] [facility] [address] [facility] [address] [place] [facility] [place] [address] 09/22/2024 3:00 PM EST Office Visit Cardiology, [facility] [address] [place] [address] Duong Paz, [place]-C [address] [place] [address] 11/23/2024 12:20 PM EST Office Visit Family Practice, [place] [address] [facility] [address] Duong Looney MD [address] [facility] [address] 03/09/2025 11:45 AM EDT Office Visit Urology, [facility] [address] [place] [address] Jeremy Vital MD [address] [place] [address] [...] Comments INR FINGERSTICK, POINT OF CARE STAT 08/24/2024 3:01 PM EDT Personal history of TIA (transient ischemic attack) 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 management encounter documented in this encounter Results * INR FINGERSTICK, POINT OF CARE (08/24/2024 3:01 PM EDT) Fingerstick INR 4.4 INR 3:20 PM EDT [facility] Blood 08/24/2024 3:01 PM EDT 08/24/2024 3:20 PM EDT Narrative [facility] - 08/24/2024 3:20 PM EDT Therapeutic ranges for non-operative patients: Prophylaxsis/treatment of DVT: (Range:2.0-3.0) Treatment of pulmonary embolism:(Range:2.0-3.0) Prevention of systemic embolism from: -tissue heart valves -acute myocardial infarction -valvular heart disease -atrial fibrillation (Range: 2.0-3.0) Mechanical prosthetic valves: (Range: 2.5-3.5) Bhakti Ogden [facility] LAB POINT OF C ARE TEST DOCKED DEVICE UNSOLICITED RESULTS LABORATORY [place] [address] [place], [place] [id number] documented in this encounter Visit Diagnoses Diagnosis [...] 9:59 AM 10/18/2004 10:59 AM Care Teams Record Tabulating Clerk Relationship Specialty Start Date End Date Duong Looney MD [address] [place] [address] PCP - General 07/31/00 documented as of this encounter
--- OUTSIDE RECORDS SUMMARY | 2024-08-29 10:16 | External Medical Summary ---
Author Name Unknown Address Unknown Organization K09:[facility] [place] [id number] Laboratory Report Ordering Provider Test Date Status CLAY ARTHUR 08/10/2024 06:13:59 Final Warfarin Therapy
INR: 2 .0-3.0 conventional anticoagulation
INR: 2.5- 3.5 high intensity anticoagulation Observation Date Value Abnormality Reference (Units ) Status PT 08/10/2024 06:13:59 26.0 Above high normal 11 .6-15.2 (seconds) Final INR 08/10/2024 06:13:59 2.4 Above high normal 0. 8-1.2 Final Performing Location [facility]ORY [place] [address]
--- OUTSIDE RECORDS SUMMARY | 2024-08-29 10:16 | External Medical Summary ---
Author Name Unknown Address Unknown Organization K09:[facility] [place] [address] Laboratory Report Ordering Provider Test Date Status CLAY ARTHUR 08/11/2024 06:45:51 Final Warfarin Therapy
INR: 2 .0-3.0 conventional anticoagulation
INR: 2.5- 3.5 high intensity anticoagulation Observation Date Value Abnormality Reference (Units ) Status PT 08/11/2024 06:45:51 26.4 Above high normal 11 .6-15.2 (seconds) Final INR 08/11/2024 06:45:51 2.4 Above high normal 0. 8-1.2 Final Performing Location [facility] [place] [address]
--- OUTSIDE RECORDS SUMMARY | 2024-08-29 10:16 | External Medical Summary | Summary of Care ---
Author Name Unknown Organization [facility] Address [address] [place] [address] Phone [phone] Care Team Providers Care Full Fashioned Garment Knitter Name Role Phone Duong Looney MD Primary Care Provider [phone] Reason for Visit * Reason Onset Date Comments Test Results 08/04/2024 [facility] arge Info Encounter Details Date Type Department Care Team ([facility] st Contact Info) Description 08/04/2024 Telephone [facility] [address] [place] [facility] [place] [address] Duong Looney MD [address] [place] [address] Test Results ([facility] Discharge Info) Allergies Active Allergy Reactions Criticality Noted Date Comments Adhesive Tape 03/11/2003 redness Latex 01/18/2005 rash Lisinopril Cough Low 03/18/2014 Penicillins 07/14/1999 swelling Prednisone 04/20/2005 Pt says it makes her "bleed into her intestines" documented as of this encounter (statuses as of 08/07/2024) Medications Medication Sig Dispensed Refills Start Date End Date Status Blood Glucose Monitoring Suppl (Shot StatsTOUCH ULTRA 2) w/Device KITIndications:Type 2 diabetes mellitus [...] diabetes mellitus with diabetic neuropathy, unspecified whether 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 Nothing need be done now especially given she is in [facility] with heart failure. * Telephone Encounter - Lora Stack LPN - 08/07/2024 2:27 PM EDT Pt is currently admitted to [facility] Wound culture printed & placed on desk [...] Duong Looney MD Tests Results Requested : [facility] Date of Test : 08.03.24 Location of Test: [facility]/On Discharge papers viewable in Media folder. Ordering [...] 08/19/2024 1:30 PM EDT Office Visit Urology, [facility] [address] [facility] [place] [address] Jeremy Vital MD [address] [place] [address] 08/20/2024 6:00 AM EDT 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 Pharmacy[address] [place] [phone] [place] [address] [facility] [address] 09/02/2024 11:50 AM EDT 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 Pharmacy, [place] [address] [facility] [place] [address] [facility] [address] [facility] [place] [address] 09/22/2024 3:00 PM EST Office Visit Cardiology, [facility] [address] [place] [address] Duong Paz PA-C [address] [place] [address] 11/23/2024 12:20 PM EST Office Visit Family Practice, [place] [address] [facility] [address] Duong Looney MD [address] [facility] [address] Health Maintenance Due Date Last Done Comments [...] 9:59 AM 10/18/2004 10:59 AM Care Teams Full Fashioned Garment Knitter Relationship Specialty Start Date End Date Duong Looney MD [address] [place] [address] PCP - General 07/31/00 documented as of this encounter
--- OUTSIDE RECORDS SUMMARY | 2024-08-29 10:16 | External Medical Summary | Summary of Care ---
Author Name Unknown Organization [facility] Address [address] [place] [address] Phone [phone] Care Team Providers Care Caisson Worker Name Role Phone Duong Looney MD Primary Care Provider [phone] Reason for Visit * Reason Comments Status Check Encounter Details Date Type Department Care Team (Latest Contact Info) Description 08/13/2024 5:50 PM EDT 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 Pharmacy, [place] [address] [place] [address] [facility] [address] [place] [address] Personal history of TIA (transient ischemic attack)*; Permanent atrial fibrillation (HCC) Allergies Active Allergy Reactions Criticality Noted Date Comments Adhesive Tape 03/11/2003 redness Latex 01/18/2005 rash Lisinopril Cough Low 03/18/2014 Penicillins 07/14/1999 swelling Prednisone 04/20/2005 Pt says it makes her "bleed into her intestines" documented as of this encounter (statuses as of 08/13/2024) Medications Medication Sig Dispensed Refills Start Date End Date Status Blood Glucose Monitoring Suppl ([place] BiosystemsTOUCH ULTRA 2) w/Device KITIndications:Type 2 diabetes mellitus [...] diabetes mellitus with diabetic neuropathy, unspecified whether ocean transportation intermediary insulin use ([facility]),Restless leg syndrome take 1 capsule [...] E11.9 100 Strip 3 04/30/2024 Active Nystatin 094825 UNIT/GM External Powder (Nyamyc)Indications:C andidal skin infection [...] as of this encounter (statuses as of 08/13/2024) Active Problems Problem Noted Date Diagnosed Date [...] as of this encounter (statuses as of 08/13/2024) Resolved Problems Problem Noted Date Diagnosed Date Resolved Date 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 project 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 current use of ant icoagulant therapy [...] as of this encounter (statuses as of 08/13/2024) Immunizations Name Administration Dates Next Due COVID-19 [...] 0.5 mL (Fluzone) 08/22/2016,08/13/2014,08/11/2013,04/2012,08/20/2011,09/08/2010,08/01/20 09,08/11/2008,08/13/2007 Seasonal Influenza, PF, 6 M & above, [...] this encounter Progress Notes * Cammie Salinas RP - 08/13/2024 8:13 AM EDT Medication Therapy Disease Management - 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 Patient: Keila Vital | : 1935 Subjective Pt admitted at [facility] 08/05-08/08 for respiratory failure and diastolic HF exacerbation + abscess of chest wall. Discharged to [facility]. Called [facility] at [phone] and spoke to Rolan who reports that patient remains admitted. Coumadin managed in house. Follow up next week to check for discharge. Cammie Salinas [facility] Clinical Pharmacist 08/13/2024, 8:48 AM documented in this encounter Plan of Treatment Upcoming Encounters Date Type Department Care Team (Late st Contact Info) Description 08/18/2024 5:10 PM EDT 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 Pharm[facility], [place] [facility] [address] [facility] [address] [facility] [address] 09/02/2024 11:50 AM EDT 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 Pharmacy, [place] [facility] [address] [facility] [address] [facility] [address] 09/22/2024 3:00 PM EST Office [facility] [place] [address] Duong Paz PA-Sade [address] [place] [address] 11/23/2024 12:20 PM EST Office Visit [facility] [address] [facility] [place] [phone] Duong Looney MD [address] [place] [address] 03/09/2025 11:45 AM EDT Office Visit Urology, [facility] [address] [place] [address] Jeremy Vital MD [address] [place] [address] Health Maintenance Due Date Last Done Comments [...] 9:59 AM 10/18/2004 10:59 AM Care Teams Caisson Worker Relationship Specialty Start Date End Date Duong Looney MD [address] [facility] [place] [address] PCP - General 07/31/00 documented as of this encounter
--- OUTSIDE RECORDS SUMMARY | 2024-08-29 10:16 | External Medical Summary ---
Author Name Unknown Address Unknown Organization K0G:[facility] [place] [address] [place] [id number] Laboratory Report Ordering Provider Test Date Status CLAY ARTHUR 08/09/2024 06:13:52 Final Observation Date Value Abnormality Reference (Units ) Status BUN 08/09/2024 06:13:52 24 Above high normal 6-20 (mg/dL) Final Creatinine 08/09/2024 06:13:52 0.9 0.5-1.0 (mg/dL) Final Glomerular filtration rate/1.73 sq M.predicted [Volume Rate/Area] in Serum, Plasma or Blood by Creatinine-based formula (CKD-EPI) 08/09/2024 06:13:52 59 Below low normal >=60 (mL/min) Final eGFR is calculated based on the CKD-EPI 2020 equation. Sodium 08/09/2024 06:13:52 139 135-146 (m mol/L) Final Potassium 08/09/2024 06:13:52 4.5 3.5-5.1 (m mol/L) Final Cl 08/09/2024 06:13:52 101 98-107 (mm ol/L) Final CO2 08/09/2024 06:13:52 28 22-32 (mmo l/L) Final Anion gap 08/09/2024 06:13:52 10 7-15 (mmol /L) Final Glucose 08/09/2024 06:13:52 129 Above high normal 70 -120 (mg/dL) Final Calcium 08/09/2024 06:13:52 9.0 8.4-10.2 ( mg/dL) Final [facility] Location [facility] [place] [id number]
--- OUTSIDE RECORDS SUMMARY | 2024-08-29 10:16 | External Medical Summary | Summary of Care ---
Author Name Unknown Organization [facility] Address [address] [place] [address] Phone [phone] Care Team Providers Care Gas Operations Analyst Name Role Phone Duong Looney MD Primary Care Provider [phone] Reason for Visit * Reason Comments Dosage Adjustment In Person (Anticoag Cl inic) Encounter Details Date Type Department Care Team (Latest Contact Info) Description 08/24/2024 3:00 PM EDT 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 Pharmacy, [address] [address] [facility] [address] [place] [address] 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 management encounter*; Personal history of TIA (transient ischemic attack); Permanent atrial fibrillation (HCC) Allergies Active Allergy Reactions Criticality Noted Date Comments Adhesive Tape 03/11/2003 redness Latex 01/18/2005 rash Lisinopril Cough Low 03/18/2014 Penicillins 07/14/1999 swelling Prednisone 04/20/2005 Pt says it makes her "bleed into her intestines" documented as of this encounter (statuses as of 08/26/2024) Medications Medication Sig Dispensed Refills Start Date End Date Status Blood Glucose Monitoring Suppl (Pressflip ULTRA 2) w/Device KITIndications:Type 2 diabetes mellitus [...] diabetes mellitus with diabetic neuropathy, 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 ([facility]),Restless leg [...] E11.9 100 Strip 3 04/30/2024 Active Nystatin [id number] UNIT/GM External Powder (Nyamyc)Indications:C andidal skin infection [...] as of this encounter (statuses as of 08/26/2024) Active Problems Problem Noted Date Diagnosed Date [...] as of this encounter (statuses as of 08/26/2024) Resolved Problems Problem Noted Date Diagnosed Date [...] as of this encounter (statuses as of 08/26/2024) Immunizations Name Administration Dates Next Due COVID-19 [...] MDV , IM, 0.5 mL (Fluzone) 08/22/2016,08/13/2014,08/11/2013,04/2012,08/20/2011,09/08/2010,08/01/20 09,08/11/2008,08/13/2007,08/30/2005,1 ,10/22/2002,09/18/2001,09/25,09/06/1999 Seasonal Influenza, High Dos e, Trivalent, PF, [...] this encounter Progress Notes * Cammie Salinas, [facility] - 08/24/2024 3:00 PM EDT Images from the original note were not included. Medication Therapy Disease Management - 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 Patient: Keila Vital | : 1935 Subjective Patient-Reported Symptoms: Patient Findings Positives: Change in medications (started magnesium and probiotic-- no interaction), Hospital admission (admitted at [facility] 08/05-08/08 for respiratory failure and diastolic HF exacerbation + abscess of chest wall. 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 Cammie Salinas [facility] Clinical Pharmacist 08/24/2024, 3:00 PM documented in this encounter Plan of Treatment Upcoming Encounters Date Type Department Care Team (Late st Contact Info) Description 09/02/2024 11:50 AM EDT 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 Pharmacy, [place] [address] [place] [address] [place], [facility] [address] [place] [address] 09/22/2024 3:00 PM EST Office Visit Cardiology, [facility] [place] [address] Duong Paz PA-C [address] [facility] [place] [address] 11/23/2024 12:20 PM EST Office Visit Family Practice, [place] [address] [place] [address] Duong Looney MD [address] [place] [address] 03/09/2025 11:45 AM EDT Office Visit Urology, [facility] [address] [place] [address] Jeremy Vital MD [address] [place] [address] Health Maintenance Due Date Last Done Comments [...] INR 4.4 INR 3:20 PM EDT [facility] [place] [facility] Blood 08/24/2024 3:01 PM EDT 08/24/2024 3:20 PM EDT Narrative [facility] [place] [facility] - 08/24/2024 3:20 PM EDT Therapeutic ranges for non-operative patients: Prophylaxsis/treatment of DVT: (Range:2.0-3.0) Treatment of pulmonary embolism:(Range:2.0-3.0) Prevention of systemic embolism from: -tissue heart valves -acute myocardial infarction -valvular heart disease -atrial fibrillation (Range: 2.0-3.0) Mechanical prosthetic valves: (Range: 2.5-3.5) Bhakti Ogden [facility] POINT OF C ARE TEST DOCKED DEVICE UNSOLICITED RESULTS [facility] [address] [place] [address] documented in this encounter Visit Diagnoses Diagnosis [...] 9:59 AM 10/18/2004 10:59 AM Care Teams Gas Operations Analyst Relationship Specialty Start Date End Date Duong Looney MD [address] [place] [address] PCP - General 07/31/00 documented as of this encounter
--- OUTSIDE RECORDS SUMMARY | 2024-08-29 10:16 | External Medical Summary | Summary of Care ---
Author Name Unknown Organization [facility] Address [address] [place] [address] Phone [phone] Care Team Providers Care Ctc Operator Name Role Phone Duong Looney MD Primary Care Provider [phone] Reason for Visit * Reason Onset Date Comments Medication Administration 08/24/2024 Flu an d/or Pneumo Inj Hospital Follow-Up Patient is he re today for a hospital follow up. Patient states she is having an issue with urgency to urinate. Patients daughter states she went 4 pads today since 10 am. Hospital Follow-Up 08/24/2024 Encounter Details Date Type Department Care Team (Late st Contact Info) Description 08/24/2024 3:00 PM EDT Office Visit [facility] [address] [place] [phone] Duong Looney MD [address] [place] [address] Need for prophylactic vaccination and inoculation against influenza*; Urinary frequency; Hospital discharge follow-up Allergies Active Allergy Reactions Criticality Noted Date Comments Adhesive Tape 03/11/2003 redness Latex 01/18/2005 rash Lisinopril Cough Low 03/18/2014 Penicillins 07/14/1999 swelling Prednisone 04/20/2005 Pt says it makes her "bleed into her intestines" documented as of this encounter (statuses as of 08/24/2024) Medications Medication Sig Dispensed Refills Start Date End Date Status Blood Glucose Monitoring Suppl (ONETOUCH ULTRA 2) w/Device KITIndications:Type 2 diabetes mellitus with hemoglobin A1c goal of less than 8.0% ([facility]) Use as directed to test blood sugar [...] 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 ([facility]),Restless leg syndrome take 1 capsule by mouth [...] of less than 8.0% ([facility]) TEST once daily E11.9 100 Strip 3 04/30/2024 Active Nystatin [id number] UNIT/GM External Powder (Nyamyc)Indications:C andidal skin infection [...] as of this encounter (statuses as of 08/24/2024) Active Problems Problem Noted Date Diagnosed Date [...] as of this encounter (statuses as of 08/24/2024) Resolved Problems Problem Noted Date Diagnosed Date [...] as of this encounter (statuses as of 08/24/2024) Immunizations Name Administration Dates Next Due COVID-19 [...] Sign Reading Time Taken Comments Blood Pressure 126/84 08/24/2024 2:51 PM EDT Pulse 80 08/24/2024 2:51 PM EDT Temperature 35.9 C (96.6 F) 08/24/2024 2:51 PM ED T Respiratory Rate 16 08/24/2024 2:51 PM EDT Oxygen Saturation 92% 08/24/2024 2:51 PM EDT Inhaled Oxygen Concentration - - Weight 107 kg (235 lb 12.8 oz) 08/24/2024 2:51 P M EDT Height 165.1 cm (5' 5") 08/24/2024 2:51 PM EDT Body Mass Index 39.24 08/24/2024 2:51 PM EDT documented in this encounter Progress Notes * Duong Looney MD - 08/24/2024 3:42 PM EDT SUBJECTIVE: Keila Vital is a 88 year old female. Chief Complaint Patient presents with Medication Administration Flu and/or Pneumo Inj Hospital Follow-Up Patient is here today for a hospital follow up. Patient states she is having an issue with urgency to urinate. Patients daughter states she went 4 pads today since 10 am. Recent Admission: HPI: HPI: 88-year-old is seen today after recent [facility] hospital admissions as well as [facility] admission. She was seen by myself on July 29 in we froze a couple of lesions. She pointed out an abscess on her anterior chest that needed to be taking care of and she was refer to General Surgery. Butwithin 2 days' time there was a change in the abscess . She presented to [facility] ER on August 01in ultimately was admitted for IV antibiotics for the abscess. It was lanced in the ER with a good bit of liquid drainage. It then was packed. After 2 days of IV antibiotics she was discharged to home I, 08 03 24. But when home health nurses who were involved to help with dressing the wound noted that her vital signs were all abnormal and she was having shortness of breath she was referred back [facility] ER and readmitted 08/05/2024. She was felt to be in acute on chronic hypoxic respiratory failure secondary to acute on chronic heart failure with preserved ejection fraction. It is not clear but she may have been volume overloaded from IV fluids from the initial hospitalization. On readmission she was diuresed magnesium level is low and was replaced and she was continued on antibiotics. On 08/08/2024 she was discharged/transferred to [facility]. She was in [facility] until August 20, 2024. No real changes were made at [facility]. She finished her oral antibiotic doxycycline and notes that the abscess area has shrunken dramatically and there is a remaining whole but it is not draining and there was no foul smell. She has also had no fever. Show she was discharged from [facility] on 08/20/2024 back home. She has done well at home in regards to not being short of breath but she has had urinary frequency without burning or fever. The only change in her her overall medicines from the 1st admission until her most recent returned to home was she was asked to take magnesium 1 a day and is now on a probiotic. She is using Lasix 40 mg daily.That is the same dose she used prior to hospitalizations. 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 90 Tablet3 Chamson Groupuch Ultra In Vitro Strip (Glucose Blood) TEST once daily E11.9 100 Strip 3 Nystatin 853455 UNIT/GM External Powder (Nyamyc) APPLY TOPICALLY TO [...] a day IF TOLERATED 180 Tablet 1 Atorvastatin Calcium 10 MG Oral Tablet (Lipitor) Take 1 Tablet by mouth at bedtime. 90 Tablet 3 Losartan Potassium 25 MG Oral Tablet (Cozaar) Take 1 Tablet by mouth in the morning. 90 Tablet 3 Magnesium Cl-Calcium Carbonate 71.5-119 MG Oral Tablet Delayed Release 64 mg. Ammonium Lactate 5 % External Lotion 2 times a day. No current facility-administered medications for this visit. Current and discharge medications have been reconciled. Review of patient's allergies indicates: Allergen Reactions Adhesive Tape redness Latex rash Penicillins swelling Prednisone Pt says it makes her "bleed into her intestines" Lisinopril Cough OBJECTIVE: BP 126/84 | Pulse 80 | Temp 35.9 C (96.6 F) (Tympanic) | Resp 16 | Ht 1.651 m (5' 5") | Wt 107 kg (235 lb 12.8 oz) | SpO2 92% | BMI 39.24 kg/m | BSA 2.22 m Review Of Systems: Skin: negative Eyes: negative Ears/Nose/Throat: negative Respiratory: negative Cardiovascular: negative Gastrointestinal: negative Genitourinary:urinary frequency Musculoskeletal: pt denies significant joint pain or stiffness Neurologic: negative Psychiatric: negative Hematologic/Lymphatic/Immunologic: negative Endocrine: negative Physical Exam CONST: alert, pleasant, no acute distress HEAD: normocephalic, atraumatic Eyes - PERRLA, EOM'I OROPHARYNX: clear, no swelling or erythema, moist CV: regular rate and rhythm, very short grade 2/6 systolic murmur CHEST: clear to auscultation bilaterally, no rales or wheezing ABD: soft, non tender, non distended, no masses or hepatosplenomegaly EXT: 1+ bilateral lower leg ankle edema-this is pretty much chronic, no joint swelling or deformities, NEURO: AAOx3, no gross focal deficits, cerebellar signs normal, affect appropriate MENTAL STATUS: no evidence of thought disorder, no delusional thought, no evidence of paranoia, thought is non-tangential. SKIN: no rash or significant lesions ASSESSMENT: Need for prophylactic vaccination and inoculation against influenza (Primary) - INFLUENZA VAC., TRIVALENT, HD, PF, 65 AND ABOVE, 0.5 ML IM (FLUZONE HD) Acute on chronic heart failure with preserved ejection fraction now compensated. No change in medications needed Urinary frequency-unclear the exact etiology. Need to rule out urinary tract infection. Will check a urine for dipstick and culture. If culture is positive then will treat with antibiotics. If the culture is negative in her urinary frequency persist, would consider lowering the dose of Lasix from 40-20 mg a day. Continue VESIcare 10 mg daily Follow up Apt in Nov. I spent a total of 30-39 minutes (exact time 35 mins) minutes on the date of service in preparation, delivery, and documentation of the care provided to Keila Vital excluding any time spent in performance of separately billed services. Duong Looney MD * Gaby Irene LPN - 08/24/2024 2:49 PM EDT Pre-Administration Time Out Procedure Performed: Yes Patient Identified (Ask Name/Date of ): Yes Does the patient have a fever greater than 101 degrees today? No Patient allergic to latex? No Has the patient ever fainted after receiving an injection? No VFC Stock: No Immunization(s) verified: Yes, Immunization Name: Flu, VIS Sheet(s) given: Yes Verified Side and Site: Yes Verified Shot(s) with Parent(s)/Patient: Yes PRE - ADMINISTRATION DOCUMENTATION Are you experiencing any cold symptoms or fever? No Have you had Guillain-[place] Syndrome (an illness that causes paralysis) within the last 6 weeks? No Have you had the flu shot in the past? YES Have you ever had a reaction to the flu shot? No Gaby Irene LPN, 08/24/2024 2:49 PM documented in this encounter Nursing Notes * Gaby Irene LPN - 08/24/2024 2:57 PM EDT The patient has been properly identified by confirmation of name and date of . Chief Complaint Patient presents with Medication Administration Flu and/or Pneumo Inj Hospital Follow-Up Patient is here today for a hospital follow up. Patient states she is having an issue with urgency to urinate. Patients daughter states she went 4 pads today since 10 am. documented in this encounter Plan of Treatment Upcoming Encounters Date Type Department Care Team (Late st Contact Info) Description 08/26/2024 5:50 PM EDT 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 Pharmacy, [place] [address] [address] [facility] [address] [address] 09/02/2024 11:50 AM EDT 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 Pharmacy, [place] [address] [facility] [facility] [facility] [address] [facility] [address] [facility] [address] 09/22/2024 3:00 PM EST Office Visit Cardiology, [facility] [address] [facility] [place] [address] Duong Paz PA-C [address] [facility] [place] [address] 11/23/2024 12:20 PM EST Office Visit Family [facility], [place] [address] [facility] [phone] Duong Looney MD [address] [facility] [address] 03/09/2025 11:45 AM EDT Office Visit Urology, [facility] [address] [place] [address] Jeremy Vital MD [address] [place] [address] Pending Results Name Type Priority Associated Diagnoses Date /Time CULTURE, URINE, QUANTITATIVE Lab Routine Urinary frequency 08/24/2024 4:15 PM EDT Health Maintenance Due Date Last [...] Procedure Name Priority Date/Time Associated Diagnosis Comments URINALYSIS, POINT OF CARE (ENTER/EDIT) Routine 08/24/2024 Urinary frequency documented in this encounter Results * (ABNORMAL) URINALYSIS, POINT OF CARE (ENTER/EDIT) (08/24/2024) Color, Urine Yellow Yellow or Light Yellow Clarity, Urine Clear Clear Glucose, Urine Negative Negative mg/dL Bilirubin, Urine Negative Negative Ketone, Urine Negative Negative mg/dL Specific [place], Urine 1.010 1.003 - 1.030 Blood, Urine Trace-intact (A) Negative pH, Urine 5.5 5.0 - 7.5 units Protein, Urine Negative Negative mg/dL Urobilinogen, Urine 0.2 0.2 - 1.0 mg/dL Nitrite, Urine Negative Negative Esterase, Urine Small(A) Negative Urine 08/24/2024 Duong Looney MD LAB POINT OF CARE TE ST ENTER/EDIT ORDERABLES documented in this encounter Visit Diagnoses Diagnosis Need for prophylactic vaccination and inoculation against influenza- Primary Urinary frequency Hospital discharge follow-up Other follow-up examination documented in this encounter Advance Directives * No Code Status (Latest Code Status on File) Date Activated Date Inactivated Comments 10/18/2004 9:59 AM 10/18/2004 10:59 AM Care Teams Ctc Operator Relationship Specialty Start Date End Date Duong Looney MD [address] [place] [address] PCP - General 07/31/00 documented as of this encounter
--- OUTSIDE RECORDS SUMMARY | 2024-08-29 10:16 | External Medical Summary ---
Author Name Unknown Address Unknown Organization [id number][facility] [address] [place] [id number] Laboratory Report Ordering Provider Test Date Status CLAY ARTHUR 08/09/2024 06:13:52 Final Observation Date Value Abnormality Reference (Units ) Status WBC, Total 08/09/2024 06:13:52 4.75 4.00-10.8 0 (K/uL) Final RBC 08/09/2024 06:13:52 3.87 3.85-5.15 (M/uL) Final Hemoglobin 08/09/2024 06:13:52 11.5 Below low normal 12 .0-15.3 (g/dL) Final HCT 08/09/2024 06:13:52 36.7 36.0-45.2 (%) Final MCV 08/09/2024 06:13:52 94.8 81.5-97.5 (fL) Final MCH 08/09/2024 06:13:52 29.7 27.0-34.0 (pg) Final MCHC 08/09/2024 06:13:52 31.3 32.0-36.0 (g/dL) Final RDW 08/09/2024 06:13:52 14.1 11.5-15.5 (%) Final Platelets 08/09/2024 06:13:52 217 140-400 (K /uL) Final MPV 08/09/2024 06:13:52 10.0 6.6-11.1 ( fL) Final Performing Location LABORATORY [facility] [place] [address] [place] [address]
--- OUTSIDE RECORDS SUMMARY | 2024-08-29 10:16 | External Medical Summary ---
Author Name Unknown Address Unknown Organization [id number]:[place] [place] [facility] [address] [facility] [address] Laboratory Report Ordering Provider Test Date Status NOE BETHEA 08/24/2024 16:15:56 Final <10,000 colonies/ml mixed no rmal cristino Observation Date Value Abnormality Reference (Units ) Status Bacteria identified in Specimen by Culture 08/24/2024 16:15:56 [id number]^CITROBA CTER BRAAKII Abnormal Final 10,000 to 100,000 colonies/m L Citrobacter braakii Performing Location [facility] [place] [address] [facility] [address] Ordering Provider Test Date Status NOE BETHEA 08/24/2024 16:15:56 Final Observation Date Value Abnormality Reference (Units ) Status Cefepime susceptibility 08/24/2024 16:15:56 2 Susceptible Final cefOXitin [Susceptibility] 08/24/2024 16:15:56 Resistant Final Ceftriaxone suceptibility 08/24/2024 16:15:56 >=64 Resistant Final Ciprofloxacin 08/24/2024 16:15:56 1 Resistant Final Due to serious side effects, the FDA has advised against using Ciprofloxacin to treat uncomplicated UTIs and respiratory tract infections unless there are no alternative treatment options. Gentamicin susceptibility 08/24/2024 16:15:56 >=16 Resi stant Final Nitrofurantoin susceptibility 08/24/2024 16:15:56 <=16 Susceptible Final Piperacillin + Tazobactamsusceptibility 08/24/2024 16:15:56 16 Susceptible Final Extended infusion Piperacill in/Tazobactam is required due to elevated GLENN for patients with CrCl greater than 40mL/min. For severe infections, discuss with Infectious Diseases for alternative therapy. Tobramycinsusceptibility 08/24/2024 16:15:56 8 Resis tant Final TMP-SMZ susceptibility 08/24/2024 16:15:56 >=320 Resista nt Final Performing Location [facility] [place] [address] [facility] [address] Ordering Provider Test Date Status NOE BETHEA 08/24/2024 16:15:56 Final Observation Date Value Abnormality Reference (Units ) Status Meropenem [Susceptibility] 08/24/2024 16:15:56 0.032 Susceptible Susceptible <2 , Intermediate >=2 , Resistant >=4 Final Test: Culture, Urine, Quanti tative
Specimen Source: Urine, Clean Catch
Specimen Type: Urine
Specimen Date: 08/24/20241614
Result Date: 08/27/2024 160
Result Status: Final result
Abnormal: Yes
Resulting Lab: [facility] [place]
[address]
[facility] [address]

CULTURE

10,000 to 100,000 colonies/mL Citrobacter braakii (Abnormal)

<10,000 colonies/ml mixed normal cristino

SUSCEPTIBILITY

Citrobacter braakii
METHOD ETEST

CEFEPIME
CEFOXITIN
CEFTRIAXONE
CIPROFLOXACIN
GENTAMICIN
MEROPENEM 0.032 Susceptible
NITROFURANTOIN
PIPERACILLIN TAZOBACTAM
TOBRAMYCIN
TRIMETH/SULFAMETHOXAZOLE

Citrobacter braakii
METHOD MICROBROTH DILUTIONS

CEFEPIME 2 Susceptible
CEFOXITIN -- Resistant
CEFTRIAXONE >=64 Resistant
CIPROFLOXACIN 1 Resistant [1]
GENTAMICIN >=16 Resistant
MEROPENEM
NITROFURANTOIN <=16 Susceptible
PIPERACILLIN TAZOBACTAM 16 Susceptible - Dose Dependent
[2]
TOBRAMYCIN 8 Resistant
TRIMETH/SULFAMETHOXAZOLE >=320 Resistant

[1] Due to serious side effects, the FDA has advised against using
Ciprofloxacin to treat uncomplicated UTIs and respiratory tract infections
unless there are no alternative treatment options.

[2] Extended infusion Piperacillin/Tazobactam is required due to elevated
GLENN for patients with CrCl greater than 40mL/min. For severe infections,
discuss with Infectious Diseases for alternative therapy.

null Performing Location [facility] [place] [facility] [address] [facility] [address]. [facility] [address]
--- OUTSIDE RECORDS SUMMARY | 2024-08-29 10:16 | External Medical Summary ---
Author Name Unknown Address Unknown Organization K09:LABORATORY [place] [address] Laboratory Report Ordering Provider Test Date Status CLAY ARTHUR 08/19/2024 06:25:19 Final Warfarin Therapy
INR: 2 .0-3.0 conventional anticoagulation
INR: 2.5- 3.5 high intensity anticoagulation Observation Date Value Abnormality Reference (Units ) Status PT 08/19/2024 06:25:19 27.5 Above high normal 11 .6-15.2 (seconds) Final INR 08/19/2024 06:25:19 2.5 Above high normal 0. 8-1.2 Final Performing Location LABORATORY [place] [address]
--- OUTSIDE RECORDS SUMMARY | 2024-08-29 10:16 | External Medical Summary ---
Author Name Unknown Address Unknown Organization K09:LAB[facility]ATORY [place] [address] Laboratory Report Ordering Provider Test Date Status CLAY ARTHUR 08/14/2024 06:32:21 Final Warfarin Therapy
INR: 2 .0-3.0 conventional anticoagulation
INR: 2.5- 3.5 high intensity anticoagulation Observation Date Value Abnormality Reference (Units ) Status PT 08/14/2024 06:32:21 25.8 Above high normal 11 .6-15.2 (seconds) Final INR 08/14/2024 06:32:21 2.3 Above high normal 0. 8-1.2 Final Performing Location LABORATORY [facility] [place] [address]
--- OUTSIDE RECORDS SUMMARY | 2024-08-29 10:16 | External Medical Summary | Summary of Care ---
Author Name Unknown Organization [facility] Address [address] [place] [address] Phone [phone] Care Team Providers Care Assistant Housekeeping Manager Name Role Phone Duong Looney MD Primary Care Provider [phone] Reason for Visit * Reason Comments Status Check Encounter Details Date Type Department Care Team (Latest Contact Info) Description 08/18/2024 5:10 PM EDT 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 Pharmacy, [place] [address] [place] [address] [facility] [address] [place] [address] Personal history of TIA (transient ischemic attack)*; Permanent atrial fibrillation (HCC) Allergies Active Allergy Reactions Criticality Noted Date Comments Adhesive Tape 03/11/2003 redness Latex 01/18/2005 rash Lisinopril Cough Low 03/18/2014 Penicillins 07/14/1999 swelling Prednisone 04/20/2005 Pt says it makes her "bleed into her intestines" documented as of this encounter (statuses as of 08/18/2024) Medications Medication Sig Dispensed Refills Start Date End Date Status Blood Glucose Monitoring Suppl ([employer]omicsTOUCH ULTRA 2) w/Device KITIndications:Type 2 diabetes [...] mellitus with diabetic neuropathy, unspecified whether manager long term care insulin use ([facility]),Restless leg syndrome [...] E11.9 100 Strip 3 04/30/2024 Active Nystatin 084756 UNIT/GM External Powder (Nyamyc)Indications:C andidal skin infection [...] as of this encounter (statuses as of 08/18/2024) Active Problems Problem Noted Date Diagnosed Date [...] NEURO DZ 09/08/2009 Overview: Per Diabetes Taxonomy. group home current use of anticoagulant therapy 0 [...] as of this encounter (statuses as of 08/18/2024) Resolved Problems Problem Noted Date Diagnosed Date [...] as of this encounter (statuses as of 08/18/2024) Immunizations Name Administration Dates Next Due COVID-19 [...] this encounter Progress Notes * Cammie Salinas [facility] - 08/18/2024 8:18 AM EDT Medication Therapy Disease Management - 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 Patient: Keila Vital | : 1935 Subjective Pt was admitted at [facility] 08/05-08/08 for respiratory failure and diastolic HF exacerbation + abscess of chest wall. Discharged to [facility]. Called [facility] at [phone] and spoke to Rolan who reports that patient remains admitted. Coumadin managed in house. Follow up next week to check for discharge. Cammie Salinas [facility] Clinical Pharmacist 08/18/24, 8:19 AM Electronically signed by Cammie Salinas [facility] at 08/18/2024 8:20 AM EDT documented in this encounter Plan of Treatment Upcoming Encounters Date Type Department Care Team (Late st Contact Info) Description 08/26/2024 5:50 PM EDT 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 [place] [address] [facility] [address] [facility] [address] [facility] [address] 09/02/2024 11:50 AM EDT 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 Pharm[facility], [place] [facility] [address] [facility] [address] [facility] [address] 09/22/2024 3:00 PM EST Office Visit Cardiology, [facility] [address] [facility] [place] [address] Duong Paz PA-Sade [address] [place] [address] 11/23/2024 12:20 PM EST Office Visit [facility] [address] [facility] [place] [id number] Duong Looney MD [address] [place] [address] 03/09/2025 11:45 AM EDT Office Visit Urology, [facility] [address] [place] [address] Jeremy [facility]ital [facility] [address] [facility] [place] [address] Health Maintenance Due Date Last Done Comments Zoster Vaccines (2 of 3) 05/14/2014 03/19/2014, 03/2014 Adult Wellness Visit 02/15/2023 02/15/2022 COVID-19 Vaccine ( season) 2024 09/27/2023, 09/27/2023, 08/07/2022, Additional history exists Influenza Vaccine (FLU shot) [...] 9:59 AM 10/18/2004 10:59 AM Care Teams Assistant Housekeeping Manager Relationship Specialty Start Date End Date Duong Looney MD [address] [facility] [place] [address] PCP - General 07/31/00 documented as of this encounter
--- OUTSIDE RECORDS SUMMARY | 2024-08-29 10:16 | External Medical Summary ---
Author Name Unknown Address Unknown Organization [id number]:LABORATORY [facility] [place] [address] [place] [address] Laboratory Report Ordering Provider Test Date Status CLAY ARTHUR 08/09/2024 06:13:52 Final Warfarin Therapy
INR: 2 .0-3.0 conventional anticoagulation
INR: 2.5- 3.5 high intensity anticoagulation Observation Date Value Abnormality Reference (Units ) Status PT 08/09/2024 06:13:52 23.7 Above high normal 11 .6-15.2 (seconds) Final INR 08/09/2024 06:13:52 2.1 Above high normal 0. 8-1.2 Final Performing Location LABORATORY [facility] [place] [address] [place] [address]
--- NOTE | 2024-08-29 10:41 | Emergency Department Note ---
History of Present Illness General Chief complaint: Fever Stated complaint: HAS UTI, HIGH FEVER, LEGS ARE WEAK Time Seen by Provider: 08/29/24 10:26 Source: patient, RN notes reviewed and old records reviewed Mode of arrival: ambulatory Limitations: no limitations History of Present Illness This patient is a 88-year-old female who is currently being treated for UTI comes in after having increasing weakness and a fever. She lives independently with her daughter. She has had a fever up to 101 this morning she was seen by her doctor earlier this week on Saturday and had a urine that came back on that was positive for a UTI and was started on Macrobid it does not appear to be sensitivities back but she is does have Citrobacter. She has had no fall. It is bilateral leg weakness mostly she was in recently for CHF she has had no increasing fluid or swelling in her legs she does have shortness of breath at times but that seems to be more chronic. She does wear oxygen at home as needed mostly at night. No cough. no chest pain .she has had a couple episodes of hematuria occasionally. No weight gain. Home Medications Medication Instructions Recorded Confirmed Type acetaminophen 500 mg tablet 1,000 mg PO Q6H PRN Pain 06/06/23 08/05/24 History (Tylenol Extra Strength) albuterol sulfate 90 mcg/actuation 2 puff inhalation Q4 PRN Shortness 06/06/23 08/05/24 History aerosol inhaler Of Breath Or Wheezing atorvastatin 10 mg tablet 10 mg PO HS 06/06/23 08/05/24 History gabapentin 300 mg capsule 300 mg PO UD 06/06/23 08/05/24 History lorazepam 1 mg tablet 1 mg PO HS PRN ANXIETY/SLEEP 06/06/23 08/05/24 History losartan 25 mg tablet 25 mg PO DAILY 06/06/23 08/05/24 History metformin 500 mg tablet,extended 500 mg PO BIDM 06/06/23 08/05/24 History release 24 hr solifenacin 5 mg tablet 5 mg PO QAM 06/06/23 08/05/24 History vit C 250 mg-vit E 90 mg-zinc 40 1 tab PO BIDM 06/06/23 08/05/24 History mg-copper 1 xy-[id number]-csuced capsule (PreserVision AREDS-2) warfarin 5 mg tablet 5 mg PO SUTUWETHFRSA@1600 06/06/23 08/05/24 History fluticasone fur. 200 mcg-umeclid 1 inh inhalation DAILY 05/30/24 08/05/24 History 62.5 mcg-vilant 25 mcg inhalat.powder (Trelegy Ellipta) loperamide 2 mg capsule 2 mg PO DIRECTED PRN Diarrhea 05/30/24 08/05/24 History nystatin 100,000 unit/gram topical 1 applic topical BID PRN ABD FOLDS 05/30/24 08/05/24 History powder (Nyamyc) NEEDED triamcinolone acetonide 0.1 % 1 applic topical BID PRN SKIN 05/30/24 08/05/24 History topical cream IRRITATION NEEDED furosemide 20 mg tablet 40 mg (2 x 20 mg) PO DAILY #0 tabs 06/02/24 08/05/24 Rx warfarin 2.5 mg tablet 2.5 mg PO MO@1600 08/01/24 08/05/24 History magnesium chloride 64 mg 64 mg PO BID #30 tabs 08/03/24 08/05/24 Rx (magnesium chloride) tablet,delayed release (Mag 64) ammonium lactate 5 % lotion 1 applic EXT BID 30 days #0 grams 08/08/24 Rx (Lac-Hydrin Five) Allergies Allergy/AdvReac Type Severity Reaction Status Date / Time vancomycin Allergy Severe ANAPHYLAXIS Verified 08/29/24 13:36 adhesive Allergy Intermediate RED AND Verified 08/29/24 13:36 ITCHY SKIN latex Allergy Intermediate Rash Verified 08/29/24 13:36 Penicillins Allergy Intermediate SWELLING Verified 08/29/24 13:36 PER GMG lisinopril AdvReac Intermediate Cough Verified 08/29/24 13:36 prednisone AdvReac Intermediate INCREASED Verified 08/29/24 13:36 HER RECTAL BLEEDING Past Med/Surg History Problem List (Updated 08/29/24 @ 13:37 by Jhonatan Jiménez MD) Hypomagnesemia (Acute) Current use of retirement anticoagulation (Acute) Weakness (Acute) A-fib (Acute) Acute dehydration (Acute) Urinary tract infection (Acute) Sepsis (Acute) Acute on chronic heart failure with preserved ejection fraction (Acute) Permanent atrial fibrillation Chronic heart failure with preserved ejection fraction Acute and chronic respiratory failure Abscess of chest wall (Acute) Hypoxia (Acute) Severe sepsis (Acute) Acute on chronic hypoxic respiratory failure (Acute) Cellulitis of chest wall Abscess of chest wall Aortic stenosis, mild Aspiration into airway History of pulmonary embolism Paroxysmal atrial fibrillation (Acute) Dysphagia Food impaction of esophagus Respiratory failure Hypoxia (Acute) Acute GI bleeding (Acute) Supratherapeutic INR (Acute) Abscess of breast, right (Acute) Abscess DVT prophylaxis Coagulopathy Upper GI bleed Hyperlipidemia Hypertension History of DVT (deep vein thrombosis) History of TIA (transient ischemic attack) DM type 2 (diabetes mellitus, type 2) Medical History (Updated 08/29/24 @ 13:37 by Jhonatan Jiménez MD) History of uterine cancer Diabetic neuropathy nursing home current use of anticoagulant COPD with asthma Surgical History History of cholecystectomy History of back surgery History of tubal ligation History of hysterectomy History of cataract surgery History of total left knee replacement History of total right knee replacement Family History Mother Heart disease Social History Smoking Status: Never smoker Tobacco Type: Cigarettes Hx Alcohol Use: No Hx Substance Use: No Preferred Language: Beninese Communication Ability: Effective Communication Ability Comment: hearing deficit 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 Beliefs That Will Affect Care: None marital status: / Current Living Situation: Family Current Living Situation Comment: lives with daughter current occupational status: retired Feels Safe at Home: Yes Assistive Devices: Lift Chair, Oxygen - at Night and Walker Review of Systems A total of 10 systems reviewed and were otherwise negative Physical Exam Vital Signs Vital Signs - 24 hr 08/29/24 10:17 08/29/24 10:53 08/29/24 10:53 Temperature 37.1 C Temperature Source Oral Pulse Rate 82 72 Pulse Rate [Right Finger] 72 Respiratory Rate 18 18 18 Respiratory Effort / Characteristics Non-Labored Spontaneous Respiratory Depth Normal Respiratory Pattern Regular Regular Blood Pressure 119/60 Blood Pressure [Right Arm] 105/53 L Blood Pressure Mean 79 Blood Pressure Mean [Right Arm] 70 Pulse Oximetry 88 L 85 L 85 L Oxygen Delivery Method Room Air Room Air Room Air Oxygen Flow Rate Sepsis Recent Fever Within 48 Hours No Sepsis New/Unexplained Change in Mental Status N/A Sepsis Action Taken by Nursing No Action Required 08/29/24 11:01 08/29/24 11:02 08/29/24 12:00 Temperature Temperature Source Pulse Rate 74 Pulse Rate [Right Finger] 70 Respiratory Rate 20 Respiratory Effort / Characteristics Non-Labored Spontaneous Respiratory Depth Normal Respiratory Pattern Blood Pressure Blood Pressure [Right Arm] 99/63 L Blood Pressure Mean Blood Pressure Mean [Right Arm] 75 Pulse Oximetry 93 96 Oxygen Delivery Method Nasal Cannula Nasal Cannula Oxygen Flow Rate 2 2 Sepsis Recent Fever Within 48 Hours Sepsis New/Unexplained Change in Mental Status Sepsis Action Taken by Nursing 08/29/24 12:14 08/29/24 13:17 Temperature Temperature Source Pulse Rate Pulse Rate [Right Finger] 72 68 Respiratory Rate 20 26 H Respiratory Effort / Characteristics Non-Labored Non-Labored Spontaneous Respiratory Depth Normal Normal Respiratory Pattern Regular Regular Blood Pressure Blood Pressure [Right Arm] 99/63 L 138/97 Blood Pressure Mean Blood Pressure Mean [Right Arm] 75 110 Pulse Oximetry 97 99 Oxygen Delivery Method Nasal Cannula Room Air Oxygen Flow Rate 2 Sepsis Recent Fever Within 48 Hours Sepsis New/Unexplained Change in Mental Status Sepsis Action Taken by Nursing General: Well developed well nourished older female who appears in no acute distress, breathing comfortably on room air. Normal speech HEENT: Normal cephalic atraumatic. Pupils are equal round and reactive to light. Extraocular movements are intact. Oropharynx is pink with moist mucous membranes. No swelling of the mouth lips or tongue. Neck: Supple with a midline trachea. No meningeal signs or stiffness, no JVD or bruits. No Stridor. Chest: Clear to auscultation bilaterally. No wheezes or rhonchi. No increased work of breathing. Heart: Regular rate and rhythm without murmurs or gallops. Abdomen: Soft nontender, nondistended without rebound guarding or rigidity. Extremities: No cyanosis clubbing. she is wearing compression may have trace edema edema. No calf tenderness or assymetry Spine/Back. Non tender to palpation. No CVA tenderness Skin: Good turgor without rashes. Neurologic exam: Cranial nerves two through 12 are intact. Motor and sensation are intact and symmetrical throughout. Course Administered Medications Discontinued Medications Cefepime HCl (Maxipime 2000mg) 2,000 mg in 20 mls @ 5 mls/min IV NOW STA; Protocol Stop: 08/29/24 11:47 Last Admin: 08/29/24 12:21 Dose: 5 mls/min Documented By: NRB Sodium Chloride (Nss) 250 mls @ 999 mls/hr IV .Q16M ONE Stop: 08/29/24 12:29 Last Admin: 08/29/24 12:23 Dose: 999 mls/hr Documented By: ARGENTINA Critical Care Time Critical Care Time: Yes Total Critical Care Time: 30 Due to concern for sepsis, need for extensive workup and multiple medications as well as discussion with the family and the consults, I have personally spent greater than 30 minutes of critical care time in the direct management of this patient. This includes bedside care, interpretation of diagnostic studies, and testing, discussion with consultants, patient, and family members, and other required patient management activities. This 30 minutes is in excess of all separately billable procedures. Medical Decision Making Differential Diagnosis UTI, sepsis, anemia, cardiac disease, intercranial process, and abdominal process electrolyte or metabolic abnormality, CHF, kidney stone, pyelonephritis Medical Records Attestation: I reviewed the patient's medical records. Home Medications Current Medication List: was personally reviewed by me Laboratory Data Attestation: I reviewed the patient's lab results. 08/29/24 11:19 08/29/24 11:19 Lab Results 08/29/24 08/29/24 08/29/24 Range/Units 11:19 12:08 12:27 WBC 10.91 H (4.8-10.8) K/ul RBC 3.76 L (4.20-5.40) M/uL Hgb 11.0 L (12.0-16.0) g/dl Hct 35.0 L (37.0-47.0) % MCV 93.1 (80.0-100.0) fL MCH 29.3 (25.0-34.0) pg MCHC 31.4 L (32.0-36.0) g/dL RDW Std Deviation 50.0 H (36.4-46.3) fL RDW Coeff of Ata 14.6 H (11.5-14.5) % Plt Count 98 L (130-400) K/uL MPV 10.7 (9.4-12.4) fL Immature Gran % (Auto) 1.0 % Neut % (Auto) 88.8 % Lymph % (Auto) 2.9 % [place] % (Auto) 6.9 % Eos % (Auto) 0.1 % Baso % (Auto) 0.3 % Neut # (Auto) 9.69 H (1.40-6.50) K/uL Lymph # (Auto) 0.32 L (1.20-3.40) K/uL [place] # (Auto) 0.75 H (0.11-0.59) K/uL Eos # (Auto) 0.01 (0.00-0.50) K/uL Baso # (Auto) 0.03 (0.00-0.20) K/uL Immature Gran # (Auto) 0.11 (0.01-0.20) K/uL PT 19.4 H (9.0-12.0) Seconds INR 1.9 H (0.9-1.1) APTT 36 H (21-31) Seconds PTT Ratio 1.3 Sodium 137 (136-145) mmol/L Potassium 4.1 (3.5-5.1) mmol/L Chloride 101 (98-107) mmol/L Carbon Dioxide 28 (21-32) mmol/L Anion Gap 8 (3-11) BUN 27 H (6-23) mg/dl Creatinine 1.09 (0.6-1.2) mg/dl Est Cr Clr Drug Dosing 44.2 ml/min eGFR 48.56 BUN/Creatinine Ratio 24.8 H (10-20) Glucose 190 H (70-99(Fasting)) mg/dl Lactate 2.1 H* (0.4-2.0) mmol/L Calcium 8.7 (8.6-10.3) mg/dl Magnesium 1.6 L (1.7-2.4) mg/dl Total Bilirubin 0.8 (0.2-1.0) mg/dl Direct Bilirubin 0.2 (0-0.2) mg/dl AST 11 L (13-39) U/L ALT 10 (7-52) U/L Alkaline Phosphatase 65 (34-104) U/L Troponin I High Sens 11.8 (0-14) pg/ml B-Natriuretic Peptide 224 H (0-100) pg/ml Total Protein 6.4 (6.0-8.3) gm/dl Albumin 3.4 (3.4-5.0) gm/dl Procalcitonin 0.31 (0-0.5) ng/ml Urine Color Dark Yellow Urine Appearance Clear (Clear) Urine pH 5.0 (4.5-7.5) Ur Specific [place] 1.017 (1.000-1.030) Urine Protein Negative (Negative) Urine Glucose (UA) Negative (Negative) Urine Ketones Trace H (Negative) Urine Blood Negative (Negative) Urine Nitrite Negative (Negative) Urine Bilirubin Negative (Negative) Urine Urobilinogen Negative (Negative) Ur Leukocyte Esterase 2+ H (Negative) Urine WBC (Auto) 11-20 H (0-5) /hpf Urine RBC (Auto) 0-2 (0-2) /hpf U Hyaline Cast (Auto) 11-20 H (0-2) /lpf U Epithel Cells (Auto) 3-5 H (0-2) /hpf Urine Bacteria (Auto) None Seen (None Seen) Urine Mucus Present A (None Prsent) SARS-CoV-2, RNA, NAAT NEGATIVE (NEGATIVE) 08/29/24 Range/Units 13:11 WBC (4.8-10.8) K/ul RBC (4.20-5.40) M/uL Hgb (12.0-16.0) g/dl Hct (37.0-47.0) % MCV (80.0-100.0) fL MCH (25.0-34.0) pg MCHC (32.0-36.0) g/dL RDW Std Deviation (36.4-46.3) fL RDW Coeff of Ata (11.5-14.5) % Plt Count (130-400) K/uL MPV (9.4-12.4) fL Immature Gran % (Auto) % Neut % (Auto) % Lymph % (Auto) % [place] % (Auto) % Eos % (Auto) % Baso % (Auto) % Neut # (Auto) (1.40-6.50) K/uL Lymph # (Auto) (1.20-3.40) K/uL [place] # (Auto) (0.11-0.59) K/uL Eos # (Auto) (0.00-0.50) K/uL Baso # (Auto) (0.00-0.20) K/uL Immature Gran # (Auto) (0.01-0.20) K/uL PT (9.0-12.0) Seconds INR (0.9-1.1) APTT (21-31) Seconds PTT Ratio Sodium (136-145) mmol/L Potassium (3.5-5.1) mmol/L Chloride (98-107) mmol/L Carbon Dioxide (21-32) mmol/L Anion Gap (3-11) BUN (6-23) mg/dl Creatinine (0.6-1.2) mg/dl Est Cr Clr Drug Dosing ml/min eGFR BUN/Creatinine Ratio (10-20) Glucose (70-99(Fasting)) mg/dl Lactate 1.7 (0.4-2.0) mmol/L Calcium (8.6-10.3) mg/dl Magnesium (1.7-2.4) mg/dl Total Bilirubin (0.2-1.0) mg/dl Direct Bilirubin (0-0.2) mg/dl AST (13-39) U/L ALT (7-52) U/L Alkaline Phosphatase (34-104) U/L Troponin I High Sens (0-14) pg/ml B-Natriuretic Peptide (0-100) pg/ml Total Protein (6.0-8.3) gm/dl Albumin (3.4-5.0) gm/dl Procalcitonin (0-0.5) ng/ml Urine Color Urine Appearance (Clear) Urine pH (4.5-7.5) Ur Specific [place] (1.000-1.030) Urine Protein (Negative) Urine Glucose (UA) (Negative) Urine Ketones (Negative) Urine Blood (Negative) Urine Nitrite (Negative) Urine Bilirubin (Negative) Urine Urobilinogen (Negative) Ur Leukocyte Esterase (Negative) Urine WBC (Auto) (0-5) /hpf Urine RBC (Auto) (0-2) /hpf U Hyaline Cast (Auto) (0-2) /lpf U Epithel Cells (Auto) (0-2) /hpf Urine Bacteria (Auto) (None Seen) Urine Mucus (None Prsent) SARS-CoV-2, RNA, NAAT (NEGATIVE) Imaging Data Attestation: I personally reviewed and interpreted this imaging study as follows: My Impression: Chest x-raycardiomegaly but no acute infiltrate, failure, pneumothorax seen Head CTno hemorrhage or mass effect. Degenerative changes. Radiologist's Impression: Chest X-Ray 08/29/24 10:36 XR chest 1V portable CLINICAL HISTORY: Sepsis TECHNIQUE: Single frontal radiograph of the chest was obtained. Comparison: Comparison is made to chest radiograph 08/05/2024 FINDINGS: Right shoulder plate and screw fixation hardware is seen. Cardiomegaly is noted. The aortic arch is calcified. The lungs are clear. No evidence of pleural effusion or pneumothorax. IMPRESSION: No acute chest disease. Cardiomegaly is noted. No evidence of pneumonia. ACT 112: Negative or not required by law. Electronically signed by: Aly Fajardo M.D. 08/29/2024 12:08 PM Abdomen/Pelvis CT 08/29/24 10:37 CT abd pelvis wo con CLINICAL HISTORY: weakness TECHNIQUE: Helical axial images of the abdomen and pelvis were obtained. Automated dose lowering techniques and/or adjustment according to patient size were utilized for this exam. This exam was performed without intravenous contrast. COMPARISON: None available at the time of this dictation. FINDINGS: Lower chest: Cardiomegaly is partially visualized. Trace bilateral pleural effusions. Liver: Unremarkable. No focal lesions are seen. Gallbladder and biliary tree: Patient is status post cholecystectomy. No intra- or extrahepatic biliary ductal dilation. Pancreas: Unremarkable, no focal lesions. Spleen: Unremarkable. Adrenals: Unremarkable. Kidneys and ureters: Perinephric stranding is noted bilaterally. Bladder: Unremarkable. Reproductive organs: Patient is status post hysterectomy. Bowel: Diverticulosis is seen without evidence of diverticulitis. A duodenal diverticulum is seen. Lymph nodes Retroperitoneal: Unremarkable. Pelvic: Unremarkable. Mesenteric: Unremarkable. Peritoneum: Normal. Vessels: Atherosclerotic calcifications are seen. An IVC filter is seen. Abdominal wall: Complex ventral hernia contains fat and nondilated loops of large bowel. Bones: Degenerative changes in the visualized spine. IMPRESSION: 1. No acute abnormalities. 2. Diverticulosis without diverticulitis. 3. Nonobstructed loops of bowel enter a ventral hernia. 4. Additional findings as above. ACT 112: Negative or not required by law. Electronically signed by: Aly Fajardo M.D. 08/29/2024 12:[address] 08/29/24 10:37 CT head/brain wo con CLINICAL HISTORY: weakness Technique: Contiguous axial CT images of the head were acquired from the base of the skull to the vertex without intravenous contrast administration. Images were viewed in brain, subdural and bone windows. Automated dose lowering techniques and/or adjustment according to patient size were utilized for this exam. Comparison: Comparison is made to CT head 11/25/2020 Findings: Areas of decreased attenuation are present in the periventricular and subcortical white matter bilaterally consistent with small vessel ischemic disease. Generalized cerebral atrophy with commensurate enlargement of the ventricles, sulci, and cisterns is also present. There is no acute intracranial hemorrhage or evidence of acute territorial infarction. No shift of the midline structures, mass effect, or extra-axial abnormalities are shown. Atherosclerotic calcifications are present in the intracranial segments of the internal carotid arteries. Imaged portions of the paranasal sinuses and mastoid air cells are clear. The orbits appear normal. There are no acute fractures of the calvaria or scalp swelling. Impression: No acute intracranial hemorrhage, no evidence of acute territorial infarction or other acute intracranial disease process. ACT 112: Negative or not required by law. Electronically signed by: Aly Fajardo M.D. 08/29/2024 12:05 PM ECG Data Attestation: I personally reviewed and interpreted this ECG as follows: Indication: + weakness Rate (beats per minute): 73 Rhythm: + atrial fibrillation ECG Intervals/blocks: + Normal QRS, + Normal QT and + Normal MA ECG [place]: + Normal ECG ST segments: + Normal ST segments ECG Findings: + Other (low voltage); no PACs or no PVCs Additional Comments: EKG #2: A-fib no acute ischemic change or ectopy. No change compared EKG #1 MDM Narrative This patient comes in as described above. She was placed in room C4. She is here for treatment and evaluation of weakness. She is currently being treated for UTI. IV access with established blood work was obtained chest x-ray multiple imaging/CAT scans were obtained as well as urinalysis and culture she was reassessed frequently. She was mildly hypoxemic but tends to tend to have chronic hypoxemia wears oxygen at home she is very comfortable with 2 L oxygen nasal cannula. She does not appear to be significantly fluid overloaded acutely. Her white count came back elevated at 11 her lactic acid initially was mildly elevated 2.1. Given her history of CHF, she was given very judicious/little fluid - she was given 250 cc IV normal saline bolus. she tolerated this well and her lactate is clearing at 1.7 upon recheck. She was given empiric antibiotics with cefepime 2 g IV. She has had this before I did discuss this in consultation with Arthur , our ED pharmacist ,for the antibiotic choice. Her BUN is mildly elevated which is likely from a prerenal/dehydration component. BNP is mildly elevated as well which appears about baseline. Her magnesium was low at 1.6 and she was given IV magnesium 1 g to try for treatment of the hypomagnesemia. CAT scan of her head was unremarkable is no focal findings CAT scan abdomen and pelvis shows no acute processes. Urinalysis does suggest a UTI. I do think she has urinary tract infection causing her symptoms she has a very complex medical history. she is on Coumadin and her INR is 1.9. I do think she needs to be admitted/observed for further IV antibiotics and inpatient management. I discussed the case at length with Dr. Francisco martin in consultation and he will see her in the ER for these measures. 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, Hypomagnesemia Forms Stand Alone Forms: My [facility] Prescriptions Prescriptions: No Action atorvastatin 10 mg tablet 10 mg PO HS acetaminophen [Tylenol Extra Strength] 500 mg Tablet 1,000 mg PO Q6H PRN (Reason: Pain) warfarin 5 mg Tablet 5 mg PO SUTUWETHFRSA@1600 losartan 25 mg Tablet 25 mg PO DAILY gabapentin 300 mg capsule 300 mg PO UD Rx Instructions: 1 capsule BID and 2 capsules HS lorazepam 1 mg tablet 1 mg PO HS PRN (Reason: ANXIETY/SLEEP) albuterol sulfate 90 mcg/actuation HFA aerosol inhaler 2 puff INHALATION Q4 PRN (Reason: Shortness Of Breath Or Wheezing) metformin 500 mg tablet extended release 24 hr 500 mg PO BIDM solifenacin 5 mg tablet 5 mg PO QAM PreserVision AREDS-2 250-90-40-1 mg Capsule 1 tab PO BIDM warfarin 2.5 mg Tablet 2.5 mg PO MO@1600 magnesium chloride [Mag 64] 64 mg Tablet,Delayed Release (Dr/Ec) 64 mg PO BID Qty: 30 0RF nystatin [Nyamyc] 100,000 unit/gram powder 1 applic TOPICAL BID PRN (Reason: ABD FOLDS NEEDED) loperamide 2 mg Capsule 2 mg PO DIRECTED PRN (Reason: Diarrhea) Rx Instructions: administer after each loose stool until symptoms controlled; do not exceed 8 mg per 24 hrs triamcinolone acetonide 0.1 % Cream 1 applic TOPICAL BID PRN (Reason: SKIN IRRITATION NEEDED) Trelegy Ellipta 200-62.5-25 mcg Blister With Device 1 inh INHALATION DAILY furosemide 20 mg tablet 40 mg PO DAILY Qty: 0 0RF Lac-Hydrin Five 5 % Lotion 1 applic EXT BID 30 Days Qty: 0 0RF Rx Instructions: apply to bilateral lower legs Referrals Referrals: Duong Looney MD [Primary Care Provider] - Discharge Problem: Sepsis Qualifiers: Sepsis type: sepsis due to unspecified organism Sepsis acute organ dysfunction status: unspecified Qualified Code(s): A41.9 - Sepsis, unspecified organism Urinary tract infection Qualifiers: Urinary tract infection type: acute cystitis Hematuria presence: with hematuria Qualified Code(s): N30.01 - Acute cystitis with hematuria A-fib Qualifiers: Atrial fibrillation type: permanent Qualified Code(s): I48.21 - Permanent atrial fibrillation
[2024-08-29 11:38] LABS: Basophils # (auto) 0.03 K/uL (0.00-0.20); Basophils % (auto) 0.3 %; Eosinophils # (auto) 0.01 K/uL (0.00-0.50); Eosinophils % (auto) 0.1 %; Immature Granulocytes # (auto) 0.11 K/uL (0.01-0.20); Lymphocytes # (auto) 0.32 K/uL (1.20-3.40); Lymphocytes % (auto) 2.9 %; Mean Corpuscular Hemoglobin 29.3 pg (25.0-34.0); Mean Corpuscular Hgb Conc 31.4 g/dL (32.0-36.0); Mean Corpuscular Volume 93.1 fL (80.0-100.0); Mean Platelet Volume 10.7 fL (9.4-12.4); Monocytes # (auto) 0.75 K/uL (0.11-0.59); Monocytes % (auto) 6.9 %; Neutrophils # (auto) 9.69 K/uL (1.40-6.50); Neutrophils % (auto) 88.8 %; Platelet Count 98 K/uL (130-400); RDW Coefficient of Variation 14.6 % (11.5-14.5); Red Blood Count 3.76 M/uL (4.20-5.40); White Blood Count 10.91 K/ul (4.8-10.8)
[2024-08-29 11:54] LABS: Albumin Level 3.4 gm/dl (3.4-5.0); BUN Creatinine Ratio 24.8 (10-20); Bilirubin Direct 0.2 mg/dl (0-0.2); Bilirubin,Total 0.8 mg/dl (0.2-1.0); Calcium 8.7 mg/dl (8.6-10.3); Creatinine Clr Calc Pharmacy 44.2 ml/min; Magnesium 1.6 mg/dl (1.7-2.4); Potassium 4.1 mmol/L (3.5-5.1); Total Protein 6.4 gm/dl (6.0-8.3)
[2024-08-29 11:59] LABS: Troponin I High Sensitivity 11.8 pg/ml (0-14)
--- NOTE | 2024-08-29 12:06 | CT Scan Report ---
CT head/brain wo con CLINICAL HISTORY: weakness Technique: Contiguous axial CT images of the head were acquired from the base of the skull to the ever scott without intravenous contrast administration. Images were viewed in brain, subdural and [facility]. Automated dose lowering techniques and/or adjustment according to patient size were utilized for this exam. Comparison: Comparison is made to CT head 11/25/2020 Findings: Areas of decreased attenuation are present in the periventricular and subcortical white matter bilate rally consistent with small vessel ischemic disease. Generalized cerebral atrophy with commensurate e nlargement of the ventricles, sulci, and cisterns is also present. There is no acute intracranial hem orrhage or evidence of acute territorial infarction. No shift of the midline structures, mass effect, or extra-axial abnormalities are shown. Atherosclerotic calcifications are present in the intracran ial segments of the internal carotid arteries. Imaged portions of the paranasal sinuses and mastoid air cells are clear. The orbits appear normal. There are no acute fractures of the calvaria or scalp swelling. Impression: No acute intracranial hemorrhage, no evidence of acute territorial infarction or other acute intracra nial disease process. ACT 112: Negative or not required by law. Electronically signed by: Aly Fajardo M.D. 08/29/2024 12:05 PM
--- NOTE | 2024-08-29 12:06 | CT Scan Report ---
CT abd pelvis wo con CLINICAL HISTORY: weakness TECHNIQUE: Helical axial images of the abdomen and pelvis were obtained. Automated dose lowering tech niques and/or adjustment according to patient size were utilized for this exam. This exam was perfor med without intravenous contrast. COMPARISON: None available at the time of this dictation. FINDINGS: Lower chest: Cardiomegaly is partially visualized. Trace bilateral pleural effusions. Liver: Unremarkable. No focal lesions are seen. Gallbladder and biliary tree: Patient is status post cholecystectomy. No intra- or extrahepatic bilia ry ductal dilation. Pancreas: Unremarkable, no focal lesions. Spleen: Unremarkable. Adrenals: Unremarkable. Kidneys and ureters: Perinephric stranding is noted bilaterally. Bladder: Unremarkable. Reproductive organs: Patient is status post hysterectomy. Bowel: Diverticulosis is seen without evidence of diverticulitis. A duodenal diverticulum is seen. Lymph nodes Retroperitoneal: Unremarkable. Pelvic: Unremarkable. Mesenteric: Unremarkable. Peritoneum: Normal. Vessels: Atherosclerotic calcifications are seen. An IVC filter is seen. Abdominal wall: Complex ventral hernia contains fat and nondilated loops of large bowel. Bones: Degenerative changes in the visualized spine. IMPRESSION: 1. No acute abnormalities. 2. Diverticulosis without diverticulitis. 3. Nonobstructed loops of bowel enter a ventral hernia. 4. Additional findings as above. ACT 112: Negative or not required by law. Electronically signed by: Aly Fajardo M.D. 08/29/2024 12:04 PM
--- NOTE | 2024-08-29 12:10 | XRay Report ---
XR chest 1V portable CLINICAL HISTORY: Sepsis TECHNIQUE: Single frontal radiograph of the chest was obtained. Comparison: Comparison is made to chest radiograph 08/05/2024 FINDINGS: Right shoulder plate and screw fixation hardware is seen. Cardiomegaly is noted. The aortic arch is c alcified. The lungs are clear. No evidence of pleural effusion or pneumothorax. IMPRESSION: No acute chest disease. Cardiomegaly is noted. No evidence of pneumonia. ACT 112: Negative or not required by law. Electronically signed by: Aly Fajardo M.D. 08/29/2024 12:08 PM
[2024-08-29 12:16] LABS: INR 1.9 (0.9-1.1); Partial Thromboplastin Ratio 1.3; Partial Thromboplastin Time 36 Seconds (21-31); Prothrombin Time 19.4 Seconds (9.0-12.0)
[2024-08-29] MEDS: CEFEPIME 2000MG 2,000 MG/20 ML SYR IV STA (12:21)
[2024-08-29] MEDS: SODIUM CHLORIDE 0.9% 250 ML IV ONE (12:23)
[2024-08-29 12:24] LABS: Appearance Urine Clear (Clear); Bacteria Urine Automated None Seen (None Seen); Bilirubin Urine Negative (Negative); Blood Urine Negative (Negative); Color Urine Dark Yellow; Glucose Urine UA Negative (Negative); Ketones Urine Trace (Negative); Leukocyte Esterase Urine 2+ (Negative); Mucus Urine Present (None Prsent); Nitrite Urine Negative (Negative); Protein Urine Negative (Negative); RBC Urine Automated 0-2 /hpf (0-2); Specific Gravity Urine 1.017 (1.000-1.030); Urobilinogen Urine Negative (Negative)
[2024-08-29] MEDS: MAGNESIUM SULFATE / D5W 1 GM/100 ML BAG IV STA (13:36)
[2024-08-29] MEDS ORDERED: DEXTROSE 50% 50 ML SYRINGE IV PRN (14:06)
[2024-08-29] MEDS ORDERED: GLUCOSE 10 TAB/TUBE PO PRN (14:06)
[2024-08-29] MEDS ORDERED: CARBOHYDRATES FOR HYPOGLYCEMIA PO PRN (14:06)
[2024-08-29] MEDS ORDERED: MAGNESIUM HYDROXIDE SUSP 30 ML UDC PO PRN (14:06)
[2024-08-29] MEDS ORDERED: ALUMINUM/MAGNESIUM SUSP 30 ML UDC PO PRN (14:06)
[2024-08-29] MEDS ORDERED: GLUCOSE 40% GEL 15 GM TUBE PO PRN (14:06)
[2024-08-29] MEDS ORDERED: GLUCAGON FOR INJ 1 MG VIAL SQ PRN (14:06)
--- NOTE | 2024-08-29 14:07 | History & Physical Report ---
Date of Service August 29, 2024 Assessment & Plan (1) Urinary tract infection: Plan Acute complicated UTI Generalized weakness Patient was recently diagnosed with UTI, started on Macrobid, continue to have fever and was progressively getting weaker. Admitting CTAP and CXR reviewed. Patient started on cefepime in the ED, continue same. At probiotic. Follow-up outpatient urine culture and sensitivity final results. Follow admitting blood culture urine culture. PT/OT. Increase blood lactic acid level: Lactate elevated at 2.1 at presentation, patient clinically dry, received 250 mL IV fluid in the ED, will utilize gentle IV fluid at 50 mL an hour. Encourage p.o. intake. Hold lasix today. Other chronic medical conditions: Paroxysmal A-fib, T2DM, HTN, CKD stage III, morbid obesitycontinue with/resume home meds as when able. DVT prophylaxis: Patient on warfarin DNR/DNI History of Present Illness Chief Complaint: Fever, getting weaker Primary Care Provider: Duong Looney MD 88-year-old lady with PMH of T2DM, HLD, statin intolerance, COPD, chronic hypoxic respiratory failure on 2 L nasal cannula oxygen with exertion and at bedtime, atrial fibrillation on Coumadin, HTN, TIA, benign essential tremor, uterine cancer presented to the ED because of fever and progressive weakness. Patient's daughter and son-in-law at bedside. Patient is very hard of hearing. History taken from the family members and ROS taken from the patient. Per patient's daughter, patient was recently diagnosed with UTI and started on Macrobid on , she took Macrobid 2 days worth, she continued to have fever and was progressively getting weaker and hence she was brought to the ED. Also her appetite has gone down. Patient denies any nausea/vomiting/belly pain/chest pain/sore throat/cough. Per family, no confusion noted. Patient quit smoking 42 years ago, denies use of alcohol or recreational drugs. Medication reviewed with the patient's daughter at bedside in detail. Plan of care discussed with the patient and her daughter at bedside in detail, they voiced understanding. DNR/DNI Allergies Allergy/AdvReac Type Severity Reaction Status Date / Time vancomycin Allergy Severe ANAPHYLAXIS Verified 08/29/24 13:36 adhesive Allergy Intermediate RED AND Verified 08/29/24 13:36 ITCHY SKIN latex Allergy Intermediate Rash Verified 08/29/24 13:36 Penicillins Allergy Intermediate SWELLING Verified 08/29/24 13:36 PER GMG lisinopril AdvReac Intermediate Cough Verified 08/29/24 13:36 prednisone AdvReac Intermediate INCREASED Verified 08/29/24 13:36 HER RECTAL BLEEDING Home Medications Medication Instructions Recorded Confirmed Type acetaminophen 500 mg tablet 1,000 mg PO Q6H PRN Pain 06/06/23 08/29/24 History (Tylenol Extra Strength) albuterol sulfate 90 mcg/actuation 2 puff inhalation Q4 PRN Shortness 06/06/23 08/29/24 History aerosol inhaler Of Breath Or Wheezing atorvastatin 10 mg tablet 10 mg PO HS 06/06/23 08/29/24 History gabapentin 300 mg capsule 300 mg PO UD 06/06/23 08/29/24 History lorazepam 1 mg tablet 1 mg PO HS PRN ANXIETY/SLEEP 06/06/23 08/29/24 History losartan 25 mg tablet 25 mg PO DAILY 06/06/23 08/29/24 History metformin 500 mg tablet,extended 500 mg PO BIDM 06/06/23 08/29/24 History release 24 hr solifenacin 5 mg tablet 5 mg PO QAM 06/06/23 08/29/24 History vit C 250 mg-vit E 90 mg-zinc 40 1 tab PO BIDM 06/06/23 08/29/24 History mg-copper 1 [id number] capsule (PreserVision AREDS-2) warfarin 5 mg tablet 5 mg PO DIRECTED 06/06/23 08/29/24 History fluticasone fur. 200 mcg-umeclid 1 inh inhalation DAILY 05/30/24 08/29/24 History 62.5 mcg-vilant 25 mcg inhalat.powder (Trelegy Ellipta) loperamide 2 mg capsule 2 mg PO DIRECTED PRN Diarrhea 05/30/24 08/29/24 History nystatin 100,000 unit/gram topical 1 applic topical BID PRN ABD FOLDS 05/30/24 08/29/24 History powder (Nyamyc) NEEDED triamcinolone acetonide 0.1 % 1 applic topical BID PRN SKIN 05/30/24 08/29/24 History topical cream IRRITATION NEEDED furosemide 20 mg tablet 40 mg (2 x 20 mg) PO DAILY #0 tabs 06/02/24 08/29/24 Rx warfarin 2.5 mg tablet 2.5 mg PO DIRECTED 08/01/24 08/29/24 History magnesium chloride 64 mg 64 mg PO BID #30 tabs 08/03/24 08/29/24 Rx (magnesium chloride) tablet,delayed release (Mag 64) ammonium lactate 5 % lotion 1 applic EXT BID 30 days #0 grams 08/08/24 08/29/24 Rx (Lac-Hydrin Five) Past Med/Surg History Problem List (Updated 08/29/24 @ 13:37 by Jhonatan Jiémnez MD) Hypomagnesemia (Acute) 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 (Acute) Weakness (Acute) A-fib (Acute) Acute dehydration (Acute) Urinary tract infection (Acute) Sepsis (Acute) Acute on chronic heart failure with preserved ejection fraction (Acute) Permanent atrial fibrillation Chronic heart failure with preserved ejection fraction Acute and chronic respiratory failure Abscess of chest wall (Acute) Hypoxia (Acute) Severe sepsis (Acute) Acute on chronic hypoxic respiratory failure (Acute) Cellulitis of chest wall Abscess of chest wall Aortic stenosis, mild Aspiration into airway History of pulmonary embolism Paroxysmal atrial fibrillation (Acute) Dysphagia Food impaction of esophagus Respiratory failure Hypoxia (Acute) Acute GI bleeding (Acute) Supratherapeutic INR (Acute) Abscess of breast, right (Acute) Abscess DVT prophylaxis Coagulopathy Upper GI bleed Hyperlipidemia Hypertension History of DVT (deep vein thrombosis) History of TIA (transient ischemic attack) DM type 2 (diabetes mellitus, type 2) Medical History (Updated 08/29/24 @ 13:37 by Jhonatan Jiménez MD) History of uterine cancer 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 COPD with asthma Surgical History History of cholecystectomy History of back surgery History of tubal ligation History of hysterectomy History of cataract surgery History of total left knee replacement History of total right knee replacement Family History Mother Heart disease Social History Smoking Status: Never smoker Tobacco Type: Cigarettes Hx Alcohol Use: No Hx Substance Use: No Preferred Language: Albanian Communication Ability: Effective Communication Ability Comment: hearing deficit 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 Physical Exam Physical Exam: GENERAL: Alert and awake, [place], on 2.5L NC O2. NAD. Appears weak/ill/frail. HEENT: No pallor, no icterus. Pupils equal, round and reactive to light. Oral mucosa dry. NECK: No JVD, no neck masses. HEART: S1 and S2 heard. Regular rate and rhythm. No murmur, no gallop. RESPIRATORY SYSTEM: Normal AP diameter. No accessory muscle use. No wheezing, no crackles. ABDOMEN: Soft, bowel sounds present, nontender, no distention. Ventral hernia noted, no s/s of strangulation. CENTRAL NERVOUS SYSTEM: No facial droop. Speech is clear. Obeys simple commands. Moves extremities. EXTREMITIES: No edema, no erythema seen. b/l compression stockings on. Results & Data Results & Data Vital Signs (Past 12 Hours) Vital Signs Temp Pulse Pulse Resp BP BP Pulse Ox 08/29/24 13:17 68 26 H 138/97 99 08/29/24 12:14 72 20 99/63 L 97 08/29/24 12:00 70 20 99/63 L 96 08/29/24 11:02 74 08/29/24 11:01 93 08/29/24 10:53 72 18 85 L 08/29/24 10:53 72 18 105/53 L 85 L 08/29/24 10:17 37.1 C 82 18 119/60 88 L O2 Del Method O2 Flow Rate 08/29/24 13:17 Room Air 08/29/24 12:14 Nasal Cannula 2 08/29/24 12:00 Nasal Cannula 2 08/29/24 11:02 08/29/24 11:01 Nasal Cannula 2 08/29/24 10:53 Room Air 08/29/24 10:53 Room Air 08/29/24 10:17 Room Air (1) Urinary tract infection Hematuria presence: with hematuria Urinary tract infection type: acute cystitis Qualified Code(s): N30.01 - Acute cystitis with hematuria
[2024-08-29] MEDS ORDERED: ALBUTEROL HFA 8 GM INHALER INH PRN (14:11)
[2024-08-29] MEDS: SODIUM CHLORIDE 0.9% 1,000 ML IV SCH (15:45)
[2024-08-29] MEDS: GABAPENTIN 300 MG CAP PO SCH ×2 (15:55→19:43)
[2024-08-29] MEDS: WARFARIN SOD 5 MG TAB PO SCH (16:02)
[2024-08-29] MEDS: INSULIN ASPART PER UNIT CHARGE SC SCH (18:22)
[2024-08-29] MEDS: ATORVASTATIN 10 MG TAB PO SCH (19:43)
[2024-08-29] MEDS: MAGNESIUM CHLORIDE W/CALCIUM 64MG DELAYED REL TAB PO SCH (19:44)
[2024-08-29] MEDS: CEFEPIME 2000MG 2,000 MG/20 ML SYR IV SCH (19:44)
[2024-08-29] MEDS: AMMONIUM LACTATE 12% LOTION 225 GM BTL EXT SCH (19:45)
[2024-08-30 05:23] LABS: Hematocrit (blood only) 31.9 % (37.0-47.0); Hemoglobin 10.3 g/dl (12.0-16.0); Mean Corpuscular Hemoglobin 29.7 pg (25.0-34.0); Mean Corpuscular Hgb Conc 32.3 g/dL (32.0-36.0); Mean Corpuscular Volume 91.9 fL (80.0-100.0); Mean Platelet Volume 10.9 fL (9.4-12.4); Platelet Count 88 K/uL (130-400); RDW Coefficient of Variation 14.7 % (11.5-14.5); RDW Standard Deviation 50.1 fL (36.4-46.3); Red Blood Count 3.47 M/uL (4.20-5.40)
[2024-08-30 05:32] LABS: BUN Creatinine Ratio 26.5 (10-20); Calcium 8.3 mg/dl (8.6-10.3); Creatinine Clr Calc Pharmacy 47.3 ml/min; Magnesium 1.9 mg/dl (1.7-2.4); Phosphorus 3.3 mg/dl (2.5-4.9)
[2024-08-30 05:40] LABS: INR 1.9 (0.9-1.1); Prothrombin Time 19.4 Seconds (9.0-12.0)
[2024-08-30 07:44] LABS: Estimated Average Glucose 148 mg/dl; Hemoglobin A1C 6.8 % (4.5-5.6)
[2024-08-30] MEDS ORDERED: NON-FORMULARY MEDICATION (Fluticasone-Umeclidin-Vilanter [Trelegy Ellipta] 200-62.5-25 mcg INH SCH (09:00)
[2024-08-30] MEDS: FLUTICASONE FUROATE 200MCG 14 PUFFS/INHALER INH SCH (09:08)
[2024-08-30] MEDS: UMECLIDINIUM/VILANTEROL 62.5/25MCG 7 PUFFS/INHALER INH SCH (09:09)
[2024-08-30] MEDS: LOSARTAN POTASSIUM 25 MG TAB PO SCH (09:10)
[2024-08-30] MEDS: OXYBUTYNIN CHLORIDE XL 5 MG TABCR PO SCH (09:10)
[2024-08-30] MEDS: ACETAMINOPHEN 325 MG TAB PO PRN (09:21)
[2024-08-30] MEDS: ADVANCED PROBIOTIC 625 MG CAPSULE PO SCH (10:08)
--- NOTE | 2024-08-30 12:21 | Hospitalist Progress Note ---
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 Outpatient urine culture indicated a infection concern the patient was not responding to Macrobid. Patient is significantly improved on cefepime Continue IV cefepime, Citrobacter is sensitive to cefepime Encouraged increased activity today Daughters at bedside concerned the patient been in the hospital recently then subsequent rehab stay and was just discharged from rehab not too long ago and is now back in the hospital. Took some time to explain to them that the antibiotic was working, however it was just that she started with symptoms the beginning the week and until the urinary tract was diagnosed in the pleura placed on antibiotics it was almost 1 week until she had treatment and it would take more than a couple doses of the Macrobid to have her get better. I assured them that by tomorrow she would had good treatment with the IV cefepime to complete a course of oral Macrobid anticipate her being discharged back to their care. Admission and Anticipated Discharge Date Admission Date: August 29, 2024 Subjective Patient feeling significantly improved. No nausea. No lightheadedness or dizziness Physical Exam Physical Exam: Constitutional: Alert, nontoxic in appearance, sitting in chair HEENT: Mucous membranes moist. Lungs: Clear to auscultation, decreased, no wheezes rales or rhonchi CV: S1-S2, irregular Abdomen: Soft, nontender, nondistended Extremities: No significant edema Neuro: No focal deficits Psych: Cooperative, normal mood Results & Data Results & Data Vital Signs (Past 12 Hours) Vital Signs Temp Pulse Pulse Resp BP Pulse Ox O2 Del Method 08/30/24 11:38 36.6 C 64 18 112/56 L 91 Room Air 08/30/24 10:37 Nasal Cannula 08/30/24 07:41 36.8 C 70 18 119/61 95 Nasal Cannula 08/30/24 05:46 76 08/30/24 03:57 37.1 C 72 18 142/66 H 94 Nasal Cannula O2 Flow Rate 08/30/24 11:38 08/30/24 10:37 2 10/20/24 07:41 2 08/30/24 05:46 08/30/24 03:57 2 Diagnostic Findings Reviewed imaging, laboratory and diagnostic studies. Pertinent findings as below. Reviewed outpatient EMR: Outpatient urine culture growing Citrobacter sensitive to cefepime and Macrobid only (3) A-fib Atrial fibrillation type: permanent Qualified Code(s): I48.21 - Permanent atrial fibrillation
[2024-08-30] MEDS ORDERED: LORazepam 1 MG TAB PO PRN (12:30)
[2024-08-30 22:50] VITALS: RESP 18
[2024-08-31 07:31] VITALS: BP 134/73; PULSE 60; TEMP 97.9; O2SAT 97
--- NOTE | 2024-08-31 10:29 | Discharge Summary ---
Discharge Summary Date of Service August 31, 2024 Principal Dx & Hospital Course #1 = Principal Diagnosis (1) UTI (urinary tract infection), bacterial: (2) Current use of penitentiary anticoagulation: (3) A-fib: (4) Chronic heart failure with preserved ejection fraction: (5) DM type 2 (diabetes mellitus, type 2): (6) Physical deconditioning: Plan Patient presented to the emergency room with weakness and fever. Patient had started with urinary tract infection symptoms earlier in the week. Had seen outpatient providers and had just started on Macrobid based on urine culture growth. Unfortunately she still was weak and having fevers due to the fact that it took a few days for her to get started on the antibiotics. Patient was admitted to the hospital. Outpatient urine culture growing out Citrobacter that was sensitive to cefepime and Macrobid. She was treated with cefepime. Here in the hospital she had no further fevers. Her WBCs normalized. She was up and ambulatory. She was tolerating her diet. Other vital signs and laboratory studies were stable. Patient could be transition back to the oral Macrobid to complete a full course of therapy and be discharged home with home services and to the care of her family. Notes For Next Care Provider May need ongoing physical therapies Medication Changes From Visit Complete course of oral Macrobid Admission HPI Per Admitting Provider 88-year-old lady with PMH of T2DM, HLD, statin intolerance, COPD, chronic hypoxic respiratory failure on 2 L nasal cannula oxygen with exertion and at bedtime, atrial fibrillation on Coumadin, HTN, TIA, benign essential tremor, uterine cancer presented to the ED because of fever and progressive weakness. Patient's daughter and son-in-law at bedside. Patient is very hard of hearing. History taken from the family members and ROS taken from the patient. Per patient's daughter, patient was recently diagnosed with UTI and started on Macrobid on , she took Macrobid 2 days worth, she continued to have fever and was progressively getting weaker and hence she was brought to the ED. Also her appetite has gone down. Patient denies any nausea/vomiting/belly pain/chest pain/sore throat/cough. Per family, no confusion noted. Patient quit smoking 42 years ago, denies use of alcohol or recreational drugs. Medication reviewed with the patient's daughter at bedside in detail. Plan of care discussed with the patient and her daughter at bedside in detail, they voiced understanding. DNR/DNI Admission Exam Per Admitting Provider See H&P Discharge Exam Constitutional: Alert, nontoxic in appearance HEENT: Mucous membranes moist. Lungs: Clear to auscultation, decreased, no wheezes rales or rhonchi CV: S1-S2, irregular Abdomen: Soft, nontender, nondistended Extremities: No significant edema Neuro: No focal deficits Psych: Cooperative, normal mood Updated Medication List Medication Instructions Recorded Confirmed Type acetaminophen 500 mg tablet 1,000 mg PO Q6H PRN Pain 06/06/23 08/29/24 History (Tylenol Extra Strength) albuterol sulfate 90 mcg/actuation 2 puff inhalation Q4 PRN Shortness 06/06/23 08/29/24 History aerosol inhaler Of Breath Or Wheezing atorvastatin 10 mg tablet 10 mg PO HS 06/06/23 08/29/24 History gabapentin 300 mg capsule 300 mg PO UD 06/06/23 08/29/24 History lorazepam 1 mg tablet 1 mg PO HS PRN ANXIETY/SLEEP 06/06/23 08/29/24 History losartan 25 mg tablet 25 mg PO DAILY 06/06/23 08/29/24 History metformin 500 mg tablet,extended 500 mg PO BIDM 06/06/23 08/29/24 History release 24 hr solifenacin 5 mg tablet 5 mg PO QAM 06/06/23 08/29/24 History vit C 250 mg-vit E 90 mg-zinc 40 1 tab PO BIDM 06/06/23 08/29/24 History mg-copper 1 [id number] capsule (PreserVision AREDS-2) warfarin 5 mg tablet 5 mg PO DIRECTED 06/06/23 08/29/24 History fluticasone fur. 200 mcg-umeclid 1 inh inhalation DAILY 05/30/24 08/29/24 History 62.5 mcg-vilant 25 mcg inhalat.powder (Trelegy Ellipta) loperamide 2 mg capsule 2 mg PO DIRECTED PRN Diarrhea 05/30/24 08/29/24 History nystatin 100,000 unit/gram topical 1 applic topical BID PRN ABD FOLDS 05/30/24 08/29/24 History powder (Nyamyc) NEEDED triamcinolone acetonide 0.1 % 1 applic topical BID PRN SKIN 05/30/24 08/29/24 History topical cream IRRITATION NEEDED furosemide 20 mg tablet 40 mg (2 x 20 mg) PO DAILY #0 tabs 06/02/24 08/29/24 Rx warfarin 2.5 mg tablet 2.5 mg PO DIRECTED 08/01/24 08/29/24 History magnesium chloride 64 mg 64 mg PO BID #30 tabs 08/03/24 08/29/24 Rx (magnesium chloride) tablet,delayed release (Mag 64) ammonium lactate 5 % lotion 1 applic EXT BID 30 days #0 grams 08/08/24 08/29/24 Rx (Lac-Hydrin Five) nitrofurantoin 100 mg PO BID 5 days #10 caps 08/31/24 Rx monohydrate/macrocrystals 100 mg capsule (Macrobid) Hospital Stay Data Consultations 08/29/24 12:59 ED Decision to Admit Stat Diagnostic Imagining Performed 08/29/24 10:37 CT abd pelvis wo con Stat CT head/brain wo con Stat Reviewed imaging, laboratory and diagnostic studies. Pertinent findings as below. Blood cultures no growth Urine culture no definitive growth INR 1.9 Pending Results Patient Have Any Pending Studies at Discharge: No Discharge Instructions Given to Patient (Per Discharging Provider) Complete course of oral antibiotics Get PT/INR checked on Saturday per your usual process Home Health Attestation I certify that this patient is under my care and that I, or a physicians social service assistant working with me, had a face to-face encounter that meets the home health [id number] encounter requirements with this patient. The encounter with the patient was in whole, or in part, for the following medical condition, which is the primary reason for home health care (list medical condition): I certify that, based on my findings, the following services are medically necessary home health services: My clinical findings support the need for the above services because: Further, I certify that my clinical findings support that this patient is homebound (i.e. absences from home require considerable and taxing effort and are for medical reasons or sikh services or infrequently or of short duration when for other reasons) because: Certification for Home Health Services: Based on the above findings, I certify that this patient is confined to the home and needs intermittent penitentiary care, physical therapy and/or speech therapy or continues to need occupational therapy. The patient is under my care, and I have initiated the establishment of the plan of care. This patient will be followed by a physician who will periodically review the plan of care. Total Time Total Time Spent Total Time Spent (In Minutes): 33
[2024-08-31 13:39] LABS: INR 2.1 (0.9-1.1)
[2024-08-31] MEDS ORDERED: WARFARIN SOD 2.5 MG TAB PO SCH (16:00)
[2024-08-31] MEDS ORDERED: NITROFURANTOIN MONOHYDRATE 100 MG CAP PO SCH (21:00)
--- NOTE | 2024-09-01 22:43 | Electrocardiogram Report ---
Test Reason : Blood Pressure : */* mmHG Vent. Rate : 73 BPM Atrial Rate : * BPM P-R Int : * ms QRS Dur : 68 ms QT Int : 380 ms P-R-T Axes : * 32 20 degrees QTcB Int : 418 ms Atrial fibrillation Low voltage QRS Abnormal ECG When compared with ECG of 05-Aug-2024 10:50, Nonspecific T wave abnormality, improved in Lateral leads Confirmed by Kiran Varghese ([id number]) on 09/01/2024 10:43:01 PM Referred By: REFERRED SELF Confirmed By: Kiran Varghese
--- NOTE | 2024-09-01 22:43 | Electrocardiogram Report ---
Test Reason : Blood Pressure : */* mmHG Vent. Rate : 72 BPM Atrial Rate : * BPM P-R Int : * ms QRS Dur : 74 ms QT Int : 392 ms P-R-T Axes : * 45 17 degrees QTcB Int : 429 ms Atrial fibrillation Low voltage QRS Abnormal ECG When compared with ECG of 29-Aug-2024 10:53, No significant change was found Confirmed by Kiran Varghese ([id number]) on 09/01/2024 10:43:27 PM Referred By: REFERRED SELF Confirmed By: Kiran Varghese
== END 2024-08-31 15:10 | disposition home health service (06) | DRG 690 ==
LOC: ED 10:10 → SUATTDRO 14:06 → 2W 14:06 → 3W 08-30 22:28